=== PATIENT | female | born 1965 | race Caucasian/White ===

== ENCOUNTER 2021-08-21 18:20 | Inpatient (IN) | payer OTHER, SELFPAY ==
--- NOTE | ~2021-08-21 | CT_ITS ---
EXAMINATION: CT ANGIOGRAM HEAD CT ANGIOGRAM NECK CLINICAL INFORMATION: Infarct. COMPARISON: CT head from 08/21/2021. TECHNIQUE: Initial noncontrast information technology associate imaging of the head and neck was performed. Comparison is made with noncontrast head CT from earlier today. Test bolus sequences followed by intravenous administration 62 mL of Omnipaque 350. Helical imaging was performed in the axial plane from the aortic arch to the skull vertex. Delayed postcontrast imaging of the head was also performed. The data was processed at the radiologic technologist mammogram's workstation for generation of MIP sequences. Angled MIPs and volume rendered reformatted images were also generated at an offline 3D workstation. Stenoses are assessed in accordance with NASCET criteria unless otherwise indicated. This CT examination was performed using dose optimization techniques as appropriate, variously including the following: *Automated exposure control. *Adjustment of mA and/or kV according to patient size (this includes techniques or standardized protocols for targeted exams where dose is matched to indication/reason for exam; i.e. extremities or head). *Use of iterative reconstruction technique. DLP: 2395 mGy-cm FINDINGS: CT Head: There is a region of chronic encephalomalacia within the left cerebellar hemisphere. No evidence of acute intracranial hemorrhage. No demonstrated additional edematous territorial infarction. A few foci of hypoattenuation in the periventricular and deep white matter are consistent with mild microangiopathy. No additional loss of billings-white matter differentiation. The ventricles are normal in size and configuration. No evidence for obstructive hydrocephalus. No abnormal mass effect or midline shift. No extra-axial fluid collections. No pathologic intra-axial enhancement. No acute soft tissue or osseous abnormalities. Mild mucosal thickening of the paranasal sinuses. The mastoid air cells and middle ear cavities are clear. Mild degenerative arthropathy of the left greater than right temporomandibular joints. The patient is edentulous. CT Neck: The thyroid gland and remaining cervical soft tissues are within normal limits. Mild degenerative disc disease from C3-C7. No additional significant abnormalities of the cervical spine. CT Upper Chest: Extensive underlying centrilobular emphysema. The visualized lung apices and upper mediastinum are within normal limits. Neck CTA: Aortic Arch: Normal contour and caliber with moderate calcific atherosclerotic disease. Four vessel branching pattern with left vertebral artery arising directly from the arch between the left common carotid and left subclavian arteries. Great Vessel Origins: No significant stenosis of the branch origins. Right Common Carotid Artery: No focal stenosis or occlusion. Cervical Right Internal Carotid Artery: Calcific atherosclerotic disease of the carotid bulb and proximal internal carotid artery causing less than 50% stenosis. Left Common Carotid Artery: No focal stenosis or occlusion. Cervical Left Internal Carotid Artery: Calcific atherosclerotic disease of the carotid bulb and proximal internal carotid artery causing less than 50% stenosis. Cervical Right Vertebral Artery: Co-dominant. No focal stenosis or occlusion. Cervical Left Vertebral Artery: Co-dominant. No focal stenosis or occlusion. Brain CTA: Intracranial Internal Carotid Arteries: Calcific atherosclerotic disease of the intracranial internal carotid arteries without occlusion or flow-limiting stenosis. Right Anterior Cerebral Artery: Normal A1 segment. Normal opacification of the distal LEAH segments. Left Anterior Cerebral Artery: Normal A1 segment. Normal opacification of the distal LEAH segments. Anterior Communicating Artery: Normal. Right Middle Cerebral Artery: Normal M1 segment of the MCA without focal stenosis or occlusion. Normal arborization of the distal segments. Left Middle Cerebral Artery: Normal M1 segment of the MCA without focal stenosis or occlusion. Normal arborization of the distal segments. Right Vertebral Artery: Normal V4 segment. Normal opacification of the proximal segments of the posterior inferior cerebellar artery. Left Vertebral Artery: Normal V4 segment. Normal opacification of the proximal segments of the posterior inferior cerebellar artery. Basilar Artery: Normal without focal stenosis or occlusion. Normal appearance of the proximal superior cerebellar arteries. Right Posterior Cerebral Artery: Normal P1 segment. Normal opacification of the distal DIESEL PILE DRIVER OPERATOR segments. Left Posterior Cerebral Artery: Normal P1 segment. Normal opacification of the distal D[employer]EL PILE DRIVER OPERATOR segments. Normal opacification of the superior sagittal, straight, transverse, and sigmoid sinuses. CT/CT angio head neck IMPRESSION: 1. No evidence of acute intracranial hemorrhage or edematous territorial infarction. Chronic encephalomalacia of the left cerebellar hemisphere. Mild underlying microangiopathy. The additional small potential regions of hypoattenuation within the occipital lobes and cerebellum are too small to characterize by this exam. If clinically indicated, MRI could provide better evaluation for smaller acute ischemic insults. 2. CTA of the head and neck without proximal occlusion or flow-limiting stenosis. 3. Extensive underlying emphysema.
--- NOTE | ~2021-08-21 | XR_ITS ---
EXAMINATION: XR ABDOMEN KUB CLINICAL INDICATION: Pre-MRI evaluation. COMPARISON: None TECHNIQUE: AP view of the abdomen. FINDINGS: Over the mid and lower pelvis there are 4 radiopaque metallic foreign bodies which may be external to the patient. 2 appear to be metallic buttons and the other 2 are linear objects about 3 cm of length. Recommend repeat evaluation of the pelvis after removal of these objects. No other metallic foreign body or radiopaque foreign body present. Nonobstructive bowel pattern. Moderate volume of stool in the colon. There are vascular calcifications of the mid abdomen. Moderate degenerative spondylosis of the spine. Lung bases are normally aerated. XR/XR abdomen 1V IMPRESSION: 4 metallic foreign bodies over the mid lower pelvis. These may be external to the patient. Recommend repeat exam after removal.
--- NOTE | ~2021-08-21 | XR_ITS ---
EXAMINATION: XR chest 1V CLINICAL INFORMATION: Reason for Exam Pre MRI eval COMPARISON: None TECHNIQUE: One view of the chest XR/XR chest 1V FINDINGS/IMPRESSION: Prominence of the left adria with a relatively convex border, for which differential considerations would include a dilated urinary artery however lymphadenopathy cannot be excluded. Recommend contrast-enhanced chest CT if further characterization. No focal consolidation. No pneumothorax. No pleural effusion. Normal cardiac silhouette. No radiopaque device or foreign body.
--- NOTE | ~2021-08-21 | XR_ITS ---
EXAMINATION: XR ABDOMEN KUB CLINICAL INDICATION: Evaluation for MRI COMPARISON: None TECHNIQUE: AP view of the abdomen. FINDINGS: There is no radiopaque metallic foreign body seen. There is moderate stool in the colon without distention. There is no organomegaly. There is mild levoscoliosis of lumbar spine. XR/XR KUB IMPRESSION: Moderate constipation. No acute process seen.
--- NOTE | ~2021-08-21 | MR_ITS ---
EXAMINATION: MR BRAIN WITHOUT CONTRAST CLINICAL INFORMATION: Cerebrovascular accident. COMPARISON: CTA head and neck from 08/21/2021. TECHNIQUE: MRI of the brain was obtained using routine sequences without contrast. FINDINGS: No focal restricted diffusion is demonstrated to suggest acute or subacute cerebral ischemia. No evidence of acute or chronic hemorrhagic products on heme-sensitive imaging. Basal ganglia mineralization. Chronic encephalomalacia of the left cerebellar hemisphere. Scattered periventricular and deep white matter T2 FLAIR hyperintensities consistent with mild underlying microangiopathy. Proportional prominence of the ventricles and sulcal spaces without evidence of obstructive hydrocephalus. No abnormal mass effect. No midline shift. Expansion of the sella turcica with mild flattening of the pituitary gland. Normal positioning of the cerebellar tonsils. Normal arterial and venous vascular flow voids are present. Normal, homogeneous marrow signal. Mild mucosal thickening of the paranasal sinuses. No signal abnormalities within the mastoids. MR/MR head/brain wo con IMPRESSION: 1. No acute intracranial abnormalities. 2. Chronic and simple malacia of the left cerebellar hemisphere. Mild underlying microangiopathy.
--- NOTE | ~2021-08-21 | CT_ITS ---
EXAMINATION: CT HEAD WITHOUT CONTRAST CLINICAL INFORMATION: Altered mental status. COMPARISON: None. TECHNIQUE: Contiguous axial imaging was performed from the skull base to vertex without intravenous administration of contrast. This CT examination was performed using dose optimization techniques as appropriate, variously including the following: *Automated exposure control *Adjustment of mA and/or kV according to patient size (this includes techniques or standardized protocols for targeted exams where dose is matched to indication/reason for exam; i.e. extremities or head) *Use of iterative reconstruction technique DLP: 734 mGy-cm FINDINGS: There is decreased billings to white matter differentiation in the right occipital lobe (2:23). There are a few additional hypoattenuating foci in the cerebral hemispheres, for instance in the right side on image 13 of series 2 and left side on image 15 of series 2. No evidence of intracranial hemorrhage. The ventricles are normal in size and configuration. Prominent CSF space posterior to the left inferior cerebellum (2:13) likely an arachnoid cyst. No evidence for obstructive hydrocephalus. No abnormal mass effect or midline shift. No extra-axial fluid collections. No acute soft tissue or osseous abnormalities. The mastoid air cells and paranasal sinuses are clear. CT/CT head/brain wo con IMPRESSION: Question of decreased billings to a matter differentiation and hypoattenuation of the parenchyma in the right occipital lobe concerning for an infarct. Recommend correlation with an MR of the brain. There are also a few additional hypoattenuating foci in the cerebral hemispheres, possibly representing additional infarcts of uncertain age. This critical result was discussed with JOSE Figueroa at 08/21/2021 9:09 PM and it was ascertained that the content and urgency of the report was understood at the time of direct communication.
[2021-08-21 18:42] VITALS: BP 172/101; PULSE 104; RESP 20; TEMP 36.5; O2SAT 95; BMI 26.5
--- NOTE | 2021-08-21 18:57 | ECG_ITS ---
Test Reason : AMS Blood Pressure : / mmHG Vent. Rate : 088 BPM Atrial Rate : 088 BPM P-R Int : 144 ms QRS Dur : 086 ms QT Int : 400 ms P-R-T Axes : 077 038 114 degrees QTc Int : 484 ms Normal sinus rhythm Possible Left atrial enlargement Left ventricular hypertrophy with repolarization abnormality ( Sokolow-Alcazar , Delfino product , Romhilt-Cabrera ) Cannot rule out Septal infarct , age undetermined Abnormal ECG No previous ECGs available Referred By: Donna Ruiz Electronically Signed By:RAFFAELE KNOX MD
--- NOTE | 2021-08-21 18:57 | ED_ITS ---
HPI - General Adult General Chief complaint: Psychiatric Symptoms Stated complaint: sect 12 Source: patient and EMS Mode of arrival: EMS Limitations: altered mental status History of Present Illness HPI narrative: 56-year-old female presents via EMS under Section 12 for altered mental status. Onset (ago): unknown Severity: moderate Associated symptoms: confusion Related Data Home Medications Medication Instructions Recorded Confirmed insulin aspart U-100 100 unit/mL See Protocol SUBCUT TID 08/21/21 08/21/21 subcutaneous solution (Novolog U-100 Insulin aspart) insulin glargine 100 unit/mL 12 unit SUBCUT QAM 08/21/21 08/21/21 subcutaneous solution (Lantus U-100 Insulin) metformin 500 mg tablet 2 tab PO BID 08/21/21 08/21/21 Allergies Allergy/AdvReac Type Severity Reaction Status Date / Time No Known Allergies Allergy Verified 08/21/21 18:57 Review of Systems Verdana 4l Review of Systems: Yes Unobtainable due to mental status Verdana 4d PMFSH Past Medical History Attestation statement: The following information was validated with the patient. Source: old records reviewed Social History Social History Patient Tobacco Use Status: Former Tobacco user Smoked in Last 30 Days: No Use of substances other than those prescribed or required for medical reasons: Refusing to respond Advance Directives: No Advance Directives Information Provided: No Physical Exam Verdana 4l Vital Signs: Verdana 4d Verdana 4d Vital Signs: Verdana 4d Verdana 4Bd Last Vital Signs Verdana 4d Gold Blower New 4d Gold Blower New 4d Temp 98.7 F 08/21/21 23:09 Gold Blower New 4d Pulse 87 08/21/21 20:03 Gold Blower New 4d Resp 12 08/21/21 23:09 BP 180/63 H 08/21/21 23:09 Pulse Ox 97 08/21/21 20:03 BMI result Body Mass Index 26.5 Appearance: Alert. Oriented to self. Appears to be manic. Thin. Head: 3 semi circular lacerations to the right temporal lobe at the hairline. Normocephalic. No Valle signs noted. No raccoon eyes noted Eyes: PERRLA. EOMI. Conjunctiva and sclera normal. Eyelids normal. ENT: Pharynx normal. Uvula midline. Dry mucous membranes. No trismus noted. No drooling noted. No muffled voice noted. Neck: Normal inspection. Neck supple. No adenopathy. No meningeal signs. No neck mass noted. CVS: Tachycardic heart rate and rhythm. Heart sound normal. No murmurs noted. Pulses equal to all extremities. Respiratory: No respiratory distress. Painless inspiration. Expiratory wheezing noted throughout. Chest nontender. No accessory muscle usage noted or decreased air movement noted. Abdomen: Soft and nontender. Bowel sounds normal in all 4 quadrants. No distention noted. No organomegaly noted. No visible injury noted. Back: No CVA tenderness. Full range of motion noted. Skin: Skin warm and dry. Pale skin color. Normal skin turgor. Purpuric rash noted to arms legs and face. Extremities: No lower extremity edema. Extremities exhibit normal range of motion. Extremities nontender. Neuro: cranial nerves 2-12 intact, no focal neural deficits, strength 5/5 to all extremities, No motor deficit. No sensory deficit. NIH Stroke Scale Internal: Initial- Upon Arrival Level of Consciousness: Alert Level of Consciousness Questions: Answers neither question correctly Level of Consciousness Commands: Performs both tasks correctly Best Gaze: Normal Visual: No visual loss Facial Palsy: Normal Motor Arm (Right): No drift Motor Arm (Left): No drift Motor Leg (Right): No drift Motor Leg (Left): No drift Limb Ataxia: Absent Sensory: Normal Best Language: No aphasia Dysarthia: Normal Extinction and Inattention: No abnormality Score: 2 Course Course Course Narrative: 56-year-old female presents via EMS for altered mental status. No further information written on the Section 12 by police department. Patient appears to, is not answering questions. Stroke scale 2, however patient is not answering questions appropriately which seems to be manic behavior versus CVA. Patient is neurovascularly intact and is able to move extremities against resistance. Does follow simple commands. Patient is unkempt, has a purpuric rash to arms legs and face. Skin and mucous membranes are dry. Three semi circular well- approximated lacerations to the right temporal along hairline. No prior history for this patient at this facility. Will ask for med records from [facility] or other [facility] for further investigation. Will order CT scan of head, labs, urinalysis and toxicology. Patient needs multiple redirections, order for 1-1. Records from [facility], patient does history of bipolar disorder, tobacco dependence, insulin-dependent diabetes, hypertension, diabetic neuropathy. Date of service was 07/11/2021. At that time there was no indication of patient being manic, she was able to answer questions with complete coherent sentences, without focal deficit or abnormal gait. Multiple attempts to reach officer that filled out a section 12. 8:40 p.m. potassium 3.0 will replete with Salvatoreor-Yves. 9:12 p.m. discussion with Radiology, hypodensities on right occipital lobe. While this is suspicious for infarct, last known well time is unknown. Not a tPA candidate at this time. 9:50 p.m. discussion with hospitalist regarding plan of care to admit for altered mental status and infarct. Consultations Consultation #1: Susan Time: 21:50 Medical Decision Making Differential Diagnosis Differential Diagnosis: AMS, CVA, sepsis, trauma, manic, psychosis Medical Records Medical records reviewed: Yes I reviewed the patient's medical records. Lab Data Lab results reviewed: Yes I reviewed the patient's lab results. Result diagrams: 08/21/21 19:34 08/21/21 19:34 Labs: Lab Results 08/21/21 08/21/21 08/21/21 Range/Units 19:34 19:34 19:34 WBC 10.0 (4.8-10.8) X10*3/uL RBC 4.87 (4.20-5.50) X10*6/uL Hgb 14.6 (12.0-16.0) g/dl Hct 42.6 (37.0-47.0) % MCV 87.5 (80.0-98.0) fL MCH 30.0 (27.0-33.0) pg MCHC 34.3 (31.0-35.0) g/dl RDW 13.1 (11.0-16.0) % Plt Count 293 (160-400) X10*3/uL MPV 9.8 (9.4-12.3) fL Immature Gran % (Auto) 0.4 (0.0-0.4) % Neut % (Auto) 71.0 (45-73) % Lymph % (Auto) 22.1 (20-40) % [place] % (Auto) 5.4 (2-11) % Eos % (Auto) 0.8 (0-4) % Baso % (Auto) 0.3 (0-2) % Lymph # (Auto) 2.2 (1.2-4.9) X10*3/uL [place] # (Auto) 0.5 (0.1-1.2) X10*3/uL Eos # (Auto) 0.1 (0.0-0.4) X10*3/uL Baso # (Auto) 0.0 (0.0-0.2) X10*3/uL Abs Immat Gran (auto) 0.04 H (0.00-0.03) X10*3/uL Absolute Neuts (auto) 7.1 (2.0-8.3) x10*3/uL Absolute Nucleated RBC 0.000 (0.0-0.012) X10*3/uL Nucleated RBC % (auto) 0.0 (0.0-0.2) /100WBC PT (9.9-13.0) SEC INR (0.9-1.1) APTT (24.1-38.0) SEC Sodium 142 (135-145) mmol/L Potassium 3.0 L (3.3-5.1) mmol/L Chloride 101 (96-108) mmol/L Carbon Dioxide 30 H (22-29) mmol/L Anion Gap 14 (12-20) BUN 17 H (9-16) mg/dL Creatinine 0.76 (0.5-1.4) mg/dL Estim Creat Clear Calc 75.6 Estimated GFR > 60 POC Glucose (60-115) mg/dL Random Glucose 285 H (60-115) mg/dL Calcium 10.3 H (8.4-10.2) mg/dL Iron 96 (30-160) mcg/dL TIBC 341 (228-428) mcg/dL % Saturation 28 (15-50) % Unsat Iron Binding 245 ug/dL Total Bilirubin 0.5 (0.0-1.0) mg/dL AST 17 (5-31) U/L ALT 19 (0-31) U/L Alkaline Phosphatase 107 (39-117) U/L Ammonia (13-55) umol/L Troponin I High Sens 17.2 H (<3.5-17.0) ng/L Total Protein 6.9 (6.5-8.0) g/dL Albumin 4.3 (3.5-5.0) g/dL Urine Color Urine Appearance Urine pH (5.0-8.0) Ur Specific [place]itt (1.005-1.025) Urine Protein (NEG-TRACE) MG/DL Urine Glucose (UA) (NEG) MG/DL Urine Ketones (NEG) MG/DL Urine Blood (NEG) Urine Nitrite (NEG) Ur Leukocyte Esterase (NEG) Urine RBC (0) /HPF Urine WBC (0-4) /HPF Ur Squamous Epith Cells /LPF Urine Bacteria /LPF Hyaline Casts /LPF Granular Casts /LPF Urine Mucus /LPF Salicylates < 5.0 L (15-30) mg/dL Urine Opiates Screen (Not Detect) Urine Fentanyl Screen (Not Detect) Acetaminophen < 1 (<30) mcg/mL Ur Barbiturates Screen (Not Detect) Ur Phencyclidine Scrn (Not Detect) Ur Amphetamines Screen (Not Detect) U Benzodiazepines Scrn (Not Detect) Urine Cocaine Screen (Not Detect) U Marijuana (THC) Screen (Not Detect) Ethyl Alcohol mg/dL COVID-19 (TREY) (Negative) COVID-19 Clin Com 08/21/21 08/21/21 08/21/21 Range/Units 19:34 19:34 19:49 WBC (4.8-10.8) X10*3/uL RBC (4.20-5.50) X10*6/uL Hgb (12.0-16.0) g/dl Hct (37.0-47.0) % MCV (80.0-98.0) fL MCH (27.0-33.0) pg MCHC (31.0-35.0) g/dl RDW (11.0-16.0) % Plt Count (160-400) X10*3/uL MPV (9.4-12.3) fL Immature Gran % (Auto) (0.0-0.4) % Neut % (Auto) (45-73) % Lymph % (Auto) (20-40) % [place] % (Auto) (2-11) % Eos % (Auto) (0-4) % Baso % (Auto) (0-2) % Lymph # (Auto) (1.2-4.9) X10*3/uL [place] # (Auto) (0.1-1.2) X10*3/uL Eos # (Auto) (0.0-0.4) X10*3/uL Baso # (Auto) (0.0-0.2) X10*3/uL Abs Immat Gran (auto) (0.00-0.03) X10*3/uL Absolute Neuts (auto) (2.0-8.3) x10*3/uL Absolute Nucleated RBC (0.0-0.012) X10*3/uL Nucleated RBC % (auto) (0.0-0.2) /100WBC PT 12.2 (9.9-13.0) SEC INR 1.1 (0.9-1.1) APTT 30.5 (24.1-38.0) SEC Sodium (135-145) mmol/L Potassium (3.3-5.1) mmol/L Chloride (96-108) mmol/L Carbon Dioxide (22-29) mmol/L Anion Gap (12-20) BUN (9-16) mg/dL Creatinine (0.5-1.4) mg/dL Estim Creat Clear Calc Estimated GFR POC Glucose (60-115) mg/dL Random Glucose (60-115) mg/dL Calcium (8.4-10.2) mg/dL Iron (30-160) mcg/dL TIBC (228-428) mcg/dL % Saturation (15-50) % Unsat Iron Binding ug/dL Total Bilirubin (0.0-1.0) mg/dL AST (5-31) U/L ALT (0-31) U/L Alkaline Phosphatase (39-117) U/L Ammonia (13-55) umol/L Troponin I High Sens (<3.5-17.0) ng/L Total Protein (6.5-8.0) g/dL Albumin (3.5-5.0) g/dL Urine Color Urine Appearance Urine pH (5.0-8.0) Ur Specific Merritt (1.005-1.025) Urine Protein (NEG-TRACE) MG/DL Urine Glucose (UA) (NEG) MG/DL Urine Ketones (NEG) MG/DL Urine Blood (NEG) Urine Nitrite (NEG) Ur Leukocyte Esterase (NEG) Urine RBC (0) /HPF Urine WBC (0-4) /HPF Ur Squamous Epith Cells /LPF Urine Bacteria /LPF Hyaline Casts /LPF Granular Casts /LPF Urine Mucus /LPF Salicylates (15-30) mg/dL Urine Opiates Screen (Not Detect) Urine Fentanyl Screen (Not Detect) Acetaminophen (<30) mcg/mL Ur Barbiturates Screen (Not Detect) Ur Phencyclidine Scrn (Not Detect) Ur Amphetamines Screen (Not Detect) U Benzodiazepines Scrn (Not Detect) Urine Cocaine Screen (Not Detect) U Marijuana (THC) Screen (Not Detect) Ethyl Alcohol < 10 mg/dL COVID-19 (TREY) Negative (Negative) COVID-19 Clin Com See Note 08/21/21 08/21/21 08/21/21 Range/Units 19:49 20:51 23:02 WBC (4.8-10.8) X10*3/uL RBC (4.20-5.50) X10*6/uL Hgb (12.0-16.0) g/dl Hct (37.0-47.0) % MCV (80.0-98.0) fL MCH (27.0-33.0) pg MCHC (31.0-35.0) g/dl RDW (11.0-16.0) % Plt Count (160-400) X10*3/uL MPV (9.4-12.3) fL Immature Gran % (Auto) (0.0-0.4) % Neut % (Auto) (45-73) % Lymph % (Auto) (20-40) % [place] % (Auto) (2-11) % Eos % (Auto) (0-4) % Baso % (Auto) (0-2) % Lymph # (Auto) (1.2-4.9) X10*3/uL [place] # (Auto) (0.1-1.2) X10*3/uL Eos # (Auto) (0.0-0.4) X10*3/uL Baso # (Auto) (0.0-0.2) X10*3/uL Abs Immat Gran (auto) (0.00-0.03) X10*3/uL Absolute Neuts (auto) (2.0-8.3) x10*3/uL Absolute Nucleated RBC (0.0-0.012) X10*3/uL Nucleated RBC % (auto) (0.0-0.2) /100WBC PT (9.9-13.0) SEC INR (0.9-1.1) APTT (24.1-38.0) SEC Sodium (135-145) mmol/L Potassium (3.3-5.1) mmol/L Chloride (96-108) mmol/L Carbon Dioxide (22-29) mmol/L Anion Gap (12-20) BUN (9-16) mg/dL Creatinine (0.5-1.4) mg/dL Estim Creat Clear Calc Estimated GFR POC Glucose 228 H (60-115) mg/dL Random Glucose (60-115) mg/dL Calcium (8.4-10.2) mg/dL Iron (30-160) mcg/dL TIBC (228-428) mcg/dL % Saturation (15-50) % Unsat Iron Binding ug/dL Total Bilirubin (0.0-1.0) mg/dL AST (5-31) U/L ALT (0-31) U/L Alkaline Phosphatase (39-117) U/L Ammonia 43 (13-55) umol/L Troponin I High Sens (<3.5-17.0) ng/L Total Protein (6.5-8.0) g/dL Albumin (3.5-5.0) g/dL Urine Color YELLOW Urine Appearance CLEAR Urine pH 6.5 (5.0-8.0) Ur Specific Merritt 1.015 (1.005-1.025) Urine Protein 1+ H (NEG-TRACE) MG/DL Urine Glucose (UA) 500 H (NEG) MG/DL Urine Ketones 15 (NEG) MG/DL Urine Blood NEG (NEG) Urine Nitrite NEG (NEG) Ur Leukocyte Esterase NEG (NEG) Urine RBC 0-2 (0) /HPF Urine WBC 1-4 (0-4) /HPF Ur Squamous Epith Cells 3+ /LPF Urine Bacteria 2+ /LPF Hyaline Casts 0-2 /LPF Granular Casts 0-2 /LPF Urine Mucus 2+ /LPF Salicylates (15-30) mg/dL Urine Opiates Screen (Not Detect) Urine Fentanyl Screen (Not Detect) Acetaminophen (<30) mcg/mL Ur Barbiturates Screen (Not Detect) Ur Phencyclidine Scrn (Not Detect) Ur Amphetamines Screen (Not Detect) U Benzodiazepines Scrn (Not Detect) Urine Cocaine Screen (Not Detect) U Marijuana (THC) Screen (Not Detect) Ethyl Alcohol mg/dL COVID-19 (TREY) (Negative) COVID-19 Clin Com 08/21/21 Range/Units 23:02 WBC (4.8-10.8) X10*3/uL RBC (4.20-5.50) X10*6/uL Hgb (12.0-16.0) g/dl Hct (37.0-47.0) % MCV (80.0-98.0) fL MCH (27.0-33.0) pg MCHC (31.0-35.0) g/dl RDW (11.0-16.0) % Plt Count (160-400) X10*3/uL MPV (9.4-12.3) fL Immature Gran % (Auto) (0.0-0.4) % Neut % (Auto) (45-73) % Lymph % (Auto) (20-40) % [place] % (Auto) (2-11) % Eos % (Auto) (0-4) % Baso % (Auto) (0-2) % Lymph # (Auto) (1.2-4.9) X10*3/uL [place] # (Auto) (0.1-1.2) X10*3/uL Eos # (Auto) (0.0-0.4) X10*3/uL Baso # (Auto) (0.0-0.2) X10*3/uL Abs Immat Gran (auto) (0.00-0.03) X10*3/uL Absolute Neuts (auto) (2.0-8.3) x10*3/uL Absolute Nucleated RBC (0.0-0.012) X10*3/uL Nucleated RBC % (auto) (0.0-0.2) /100WBC PT (9.9-13.0) SEC INR (0.9-1.1) APTT (24.1-38.0) SEC Sodium (135-145) mmol/L Potassium (3.3-5.1) mmol/L Chloride (96-108) mmol/L Carbon Dioxide (22-29) mmol/L Anion Gap (12-20) BUN (9-16) mg/dL Creatinine (0.5-1.4) mg/dL Estim Creat Clear Calc Estimated GFR POC Glucose (60-115) mg/dL Random Glucose (60-115) mg/dL Calcium (8.4-10.2) mg/dL Iron (30-160) mcg/dL TIBC (228-428) mcg/dL % Saturation (15-50) % Unsat Iron Binding ug/dL Total Bilirubin (0.0-1.0) mg/dL AST (5-31) U/L ALT (0-31) U/L Alkaline Phosphatase (39-117) U/L Ammonia (13-55) umol/L Troponin I High Sens (<3.5-17.0) ng/L Total Protein (6.5-8.0) g/dL Albumin (3.5-5.0) g/dL Urine Color Urine Appearance Urine pH (5.0-8.0) Ur Specific [place] (1.005-1.025) Urine Protein (NEG-TRACE) MG/DL Urine Glucose (UA) (NEG) MG/DL Urine Ketones (NEG) MG/DL Urine Blood (NEG) Urine Nitrite (NEG) Ur Leukocyte Esterase (NEG) Urine RBC (0) /HPF Urine WBC (0-4) /HPF Ur Squamous Epith Cells /LPF Urine Bacteria /LPF Hyaline Casts /LPF Granular Casts /LPF Urine Mucus /LPF Salicylates (15-30) mg/dL Urine Opiates Screen Not Detected (Not Detect) Urine Fentanyl Screen Not Detected (Not Detect) Acetaminophen (<30) mcg/mL Ur Barbiturates Screen Not Detected (Not Detect) Ur Phencyclidine Scrn Not Detected (Not Detect) Ur Amphetamines Screen Not Detected (Not Detect) U Benzodiazepines Scrn Not Detected (Not Detect) Urine Cocaine Screen Not Detected (Not Detect) U Marijuana (THC) Screen Not Detected (Not Detect) Ethyl Alcohol mg/dL COVID-19 (TREY) (Negative) COVID-19 Clin Com Imaging Data CT head: Attestation: I personally reviewed and interpreted this imaging study as follows: Radiologist's impression: EXAMINATION: CT HEAD WITHOUT CONTRAST CLINICAL INFORMATION: Altered mental status.? COMPARISON: None. TECHNIQUE: Contiguous axial imaging was performed from the skull base to vertex without intravenous administration of contrast. This CT examination was performed using dose optimization techniques as appropriate, variously including the following: *Automated exposure control *Adjustment of mA and/or kV according to patient size (this includes techniques or standardized protocols for targeted exams where dose is matched to indication/reason for exam; i.e. extremities or head) *Use of iterative reconstruction technique DLP: 734 mGy-cm FINDINGS: There is decreased billings to white matter differentiation in the right occipital lobe (2:23). There are a few additional hypoattenuating foci in the cerebral hemispheres, for instance in the right side on image 13 of series 2 and left side on image 15 of series 2. No evidence of intracranial hemorrhage. The ventricles are normal in size and configuration. Prominent CSF space posterior to the left inferior cerebellum (2:13) likely an arachnoid cyst. No evidence for obstructive hydrocephalus. No abnormal mass effect or midline shift. No extra-axial fluid collections. No acute soft tissue or osseous abnormalities. The mastoid air cells and paranasal sinuses are clear. ? CT/CT head/brain wo con IMPRESSION: Question of decreased billings to a matter differentiation and hypoattenuation of the parenchyma in the right occipital lobe concerning for an infarct. Recommend correlation with an MR of the brain. ? There are also a few additional hypoattenuating foci in the cerebral hemispheres, possibly representing additional infarcts of uncertain age. ? This critical result was discussed with JOSE Figueroa at 08/21/2021 9:09 PM and it was ascertained that the content and urgency of the report was understood at the time of direct communication. CTA head and neck: Attestation: I personally reviewed and interpreted this imaging study as follows: Radiologist's impression: FINDINGS: CT Head: There is a region of chronic encephalomalacia within the left cerebellar hemisphere. No evidence of acute intracranial hemorrhage. No demonstrated additional edematous territorial infarction. A few foci of hypoattenuation in the periventricular and deep white matter are consistent with mild microangiopathy. No additional loss of billings-white matter differentiation. The ventricles are normal in size and configuration. No evidence for obstructive hydrocephalus. No abnormal mass effect or midline shift. No extra-axial fluid collections. No pathologic intra-axial enhancement. No acute soft tissue or osseous abnormalities. Mild mucosal thickening of the paranasal sinuses. The mastoid air cells and middle ear cavities are clear. Mild degenerative arthropathy of the left greater than right temporomandibular joints. The patient is edentulous. CT Neck: The thyroid gland and remaining cervical soft tissues are within normal limits. Mild degenerative disc disease from C3-C7. No additional significant abnormalities of the cervical spine. CT Upper Chest: Extensive underlying centrilobular emphysema. The visualized lung apices and upper mediastinum are within normal limits. Neck CTA: Aortic Arch: Normal contour and caliber with moderate calcific atherosclerotic disease. Four vessel branching pattern with left vertebral artery arising directly from the arch between the left common carotid and left subclavian arteries. Great Vessel Origins: No significant stenosis of the branch origins. Right Common Carotid Artery: No focal stenosis or occlusion. Cervical Right Internal Carotid Artery: Calcific atherosclerotic disease of the carotid bulb and proximal internal carotid artery causing less than 50% stenosis. Left Common Carotid Artery: No focal stenosis or occlusion. Cervical Left Internal Carotid Artery: Calcific atherosclerotic disease of the carotid bulb and proximal internal carotid artery causing less than 50% stenosis. Cervical Right Vertebral Artery: Co-dominant. No focal stenosis or occlusion. Cervical Left Vertebral Artery: Co-dominant. No focal stenosis or occlusion. Brain CTA: Intracranial Internal Carotid Arteries: Calcific atherosclerotic disease of the intracranial internal carotid arteries without occlusion or flow-limiting stenosis. Right Anterior Cerebral Artery: Normal A1 segment. Normal opacification of the distal LEAH segments. Left Anterior Cerebral Artery: Normal A1 segment. Normal opacification of the distal LEAH segments. Anterior Communicating Artery: Normal. Right Middle Cerebral Artery: Normal M1 segment of the MCA without focal stenosis or occlusion. Normal arborization of the distal segments. Left Middle Cerebral Artery: Normal M1 segment of the MCA without focal stenosis or occlusion. Normal arborization of the distal segments. Right Vertebral Artery: Normal V4 segment. Normal opacification of the proximal segments of the posterior inferior cerebellar artery. Left Vertebral Artery: Normal V4 segment. Normal opacification of the proximal segments of the posterior inferior cerebellar artery. Basilar Artery: Normal without focal stenosis or occlusion. Normal appearance of the proximal superior cerebellar arteries. Right Posterior Cerebral Artery: Normal P1 segment. Normal opacification of the distal [employer] SOFTWARE [employer]ER segments. Left Posterior Cerebral Artery: Normal P1 segment. Normal opacification of the distal S[employer] SOFTWARE ENGINEER segments. Normal opacification of the superior sagittal, straight, transverse, and sigmoid sinuses. CT/CT angio head neck IMPRESSION: 1. No evidence of acute intracranial hemorrhage or edematous territorial infarction. Chronic encephalomalacia of the left cerebellar hemisphere. Mild underlying microangiopathy. ? The additional small potential regions of hypoattenuation within the occipital lobes and cerebellum are too small to characterize by this exam. If clinically indicated, MRI could provide better evaluation for smaller acute ischemic insults. ? 2. CTA of the head and neck without proximal occlusion or flow-limiting stenosis. ? 3. Extensive underlying emphysema. ECG Data Attestation: I personally reviewed and interpreted this ECG as follows: Prior ECG tracings: not available for review Interpretation: Vent. rate 88 BPM LA interval 144 ms QRS duration 86 ms QT/QTc 400/484 ms P-R-T axes 77 38 114 Normal sinus rhythm Possible Left atrial enlargement Left ventricular hypertrophy with repolarization abnormality ( Sokolow-Alcazar , Sanders product , Romhilt-Cabrera ) Cannot rule out Septal infarct , age undetermined Abnormal ECG No previous ECGs available 21-AUG-2021 19:21:23 Critical Care Time Critical Care Time Critical Care Time: Yes Total Critical Care Time: 65 Attestation: I have personally provided critical care time exclusive of time spent on separately billable procedures. Time includes review of laboratory data, radiology results, discussion with consultants, and monitoring for potential decompensation. Interventions were performed as documented. Discharge Plan Discharge Patient Disposition: Admitted As Inpatient Prescriptions: No Action metformin 500 mg tablet 2 tab PO BID 0RF Lantus U-100 Insulin 100 unit/mL solution 12 unit subcut QAM 0RF insulin aspart U-100 [Novolog U-100 Insulin aspart] 100 unit/mL solution See Protocol unit subcut TID 0RF Protocol: Insulin Correction Scale Less than or equal to 110 ---- Give (units): 0 111 to 150 Give (units): 0 151 to 200 Give (units): 2 201 to 250 Give (units): 4 251 to 300 Give (units): 6 301 to 350 Give (units): 8 Greater than 350 Give (units): 10 Call MD if Blood Glucose > : 350
--- NOTE | 2021-08-21 19:36 | PC.NURSE ---
pt changed over. Iv placed and labs collected. EkG completed and will medicated per Sep.
[2021-08-21 19:40] LABS: MANUAL DIFF FLAG NO
[2021-08-21 19:41] LABS: Basophils Percent Auto 0.3 % (0-2); Eosinophils Absolute Auto 0.1 X10*3/uL (0.0-0.4); Eosinophils Percent Auto 0.8 % (0-4); Hematocrit 42.6 % (37.0-47.0); Hemoglobin 14.6 g/dl (12.0-16.0); Imm Gran Abs Auto 0.04 X10*3/uL (0.00-0.03); Imm Gran Pct Auto 0.4 % (0.0-0.4); Lymphocytes Absolute Auto 2.2 X10*3/uL (1.2-4.9); Lymphocytes Percent Auto 22.1 % (20-40); Mean Corpuscular HGB Conc 34.3 g/dl (31.0-35.0); Mean Corpuscular Volume 87.5 fL (80.0-98.0); Mean Platelet Volume 9.8 fL (9.4-12.3); Monocytes Absolute Auto 0.5 X10*3/uL (0.1-1.2); Monocytes Percent Auto 5.4 % (2-11); Neutrophils Absolute Auto 7.1 x10*3/uL (2.0-8.3); Platelet Count 293 X10*3/uL (160-400); Red Blood Count 4.87 X10*6/uL (4.20-5.50); Red Cell Distribution Width 13.1 % (11.0-16.0)
[2021-08-21] MEDS: LORazepam 1 MG TABLET PO ×2 (19:51→23:03)
[2021-08-21 19:53] LABS: Ethanol < 10 mg/dL
[2021-08-21] MEDS: Diphth,Pertus(ACell),Tet Adult 0.5 ML SYRINGE IM (19:55)
[2021-08-21 19:57] LABS: Acetaminophen LAB < 1 mcg/mL (<30); Alanine Aminotransferase 19 U/L (0-31); Albumin Level 4.3 g/dL (3.5-5.0); Alkaline Phosphatase 107 U/L (39-117); Anion Gap 14 (12-20); Aspartate Amino Transferase 17 U/L (5-31); Bilirubin Total 0.5 mg/dL (0.0-1.0); Blood Urea Nitrogen 17 mg/dL (9-16); Calcium 10.3 mg/dL (8.4-10.2); Carbon Dioxide 30 mmol/L (22-29); Chloride 101 mmol/L (96-108); Creatinine Clr Calc Pharmacy 75.6; Estimated Glomerular Filt Rate > 60; Glucose Random 285 mg/dL (60-115); Sodium 142 mmol/L (135-145); Total Protein 6.9 g/dL (6.5-8.0)
[2021-08-21] MEDS: 0.9 % Sodium Chloride 1,000 ML 999 ML IV (19:59)
[2021-08-21 20:00] LABS: Salicylate < 5.0 mg/dL (15-30)
[2021-08-21 20:02] LABS: Troponin-I High Sensitivity 17.2 ng/L (<3.5-17.0)
[2021-08-21 20:03] VITALS: BP 178/99; PULSE 87; RESP 16; TEMP 37.2; O2SAT 97
[2021-08-21 20:04] LABS: COVID-19 Test Negative (Negative); IDNOW Serial# 55D5AD1C
[2021-08-21 20:05] LABS: Ammonia 43 umol/L (13-55)
[2021-08-21 20:16] LABS: INTERNATIONAL NORM RATIO 1.1 (0.9-1.1); Prothrombin Time 12.2 SEC (9.9-13.0)
[2021-08-21 20:19] LABS: Partial Thromboplastin Time 30.5 SEC (24.1-38.0)
[2021-08-21 20:55] LABS: Glucose, Whole Blood 228 mg/dL (60-115)
[2021-08-21 20:59] LABS: Iron 96 mcg/dL (30-160); Percent Iron Saturation 28 % (15-50); Total Iron Binding Capacity 341 mcg/dL (228-428); Unsaturated Iron Binding 245 ug/dL
--- NOTE | 2021-08-21 21:20 | PC.NURSE ---
pt able to speak in full sentence, no right or left side weakness.
[2021-08-21] MEDS: Potassium Chloride Packet 20 MEQ PACKET 40 MEQ PO (21:26)
--- NOTE | 2021-08-21 21:28 | PHA.MEDREC ---
Pharmacy Consult ? Medication Reconciliation Pharmacy has completed the medication reconciliation.Med rec taken from claim history, patient does not remember what she takes when interviewed
--- NOTE | 2021-08-21 21:31 | PC.NURSE ---
pt able to swallow well no sign of aspiration.
--- NOTE | 2021-08-21 22:07 | P.HPHOSP_ITS ---
History of Present Illness Date of Service: 08/21/21 Chief Complaint: AMS 56-year-old female with past medical history of diabetes who was brought into the hospital from home on section 12, her arrival to the ED is mysterious otis nobody has any information about how or who called EMS. I saw patient at bedside, she is somnolent but arousable, mumbles when answering questions, but sometimes has few coherent words. When asked her who called EMS she said she is alone and she needed help, likely that she might have called EMS/police to help bring her to the hospital. Unable to get much history from patient. She was noted to have mobile speech in the ED. On arrival to the ED patient hemodynamically stable with an elevated blood pressure 178/99 Labs were unremarkable, UA negative, urine drug screen negative, Head CT showed question of decreased billings to white matter differentiation and hypoattenuation of the parenchyma in the right occipital lobe concerning for an infarct. Head and neck CT angiogram shows no evidence of acute intracranial hemorrhage or add metastatic Nette infarction. Chronic encephalomalacia of the left cerebral hemisphere. Mild underlying microangiopathy. PATIENT WILL BE ADMITTED FOR FURTHER MANAGEMENT Unable to obtain her past medical surgical or family history Review of Systems Verdana 4l Review of Systems: Yes Unobtainable due to mental Verdana 4d condition and Unobtainable due to mental status PMFSH Medical History (Updated 08/22/21 @ 05:46 by Jorge Davis MD) Diabetes Social History Patient Tobacco Use Status: Former Tobacco user Smoked in Last 30 Days: No Use of substances other than those prescribed or required for medical reasons: Refusing to respond Advance Directives: No Advance Directives Information Provided: No Meds Allergies Allergy/AdvReac Type Severity Reaction Status Date / Time No Known Allergies Allergy Verified 08/21/21 18:57 Home Medications Medication Instructions Recorded Confirmed Last Taken Type insulin aspart See Protocol 08/21/21 08/21/21 Unknown History U-100 100 unit/mL SUBCUT TID subcutaneous solution (Novolog U-100 Insulin aspart) insulin glargine 12 unit SUBCUT 08/21/21 08/21/21 Unknown History 100 unit/mL QAM subcutaneous solution (Lantus U-100 Insulin) metformin 500 mg 2 tab PO BID 08/21/21 08/21/21 Unknown History tablet Physical Exam Verdana 4l Vital Signs and Narrative: Verdana 4d Verdana 4d Vital Signs: Verdana 4d Verdana 4Bd Last Vital Signs Verdana 4d 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 Temp 98.9 F 08/21/21 20:03 [employer] Van Salesperson New 4d Pulse 87 08/21/21 20:03 [employer] Van Salesperson New 4d Resp 16 08/21/21 20:03 BP 178/99 H 08/21/21 20:03 Pulse Ox 97 08/21/21 20:03 BMI result Body Mass Index 26.5 Const: Other: Somnolent but easily arousable General: cooperative Eyes: General: appearance normal, both eyes and all related structures Resp: Effort & Inspection: normal respiratory effort Auscultation: clear to auscultation bilaterally Cardio: Rate: regular rate Rhythm: regular rhythm GI: Palpation (GI): Soft to palpation Auscultation: normal bowel sounds Skin: General skin exam: no rashes or lesions noted Neuro: Other: She does follow commands somewhat, upper extremity strength is 5/5, when asked about lower extremity she refused to do the exam, does not follow the rest of neurological exam Extrem: General: Yes normal to inspection and Yes no pedal edema Results Labs CBC and Chem 7: 08/21/21 19:34 08/21/21 19:34 Labs: Laboratory Results - last 24 hr 08/21/21 08/21/21 08/21/21 19:34 19:34 19:34 MCV 87.5 MCH 30.0 MCHC 34.3 RDW 13.1 Plt Count 293 MPV 9.8 Immature Gran % (Auto) 0.4 Neut % (Auto) 71.0 Lymph % (Auto) 22.1 Garvin % (Auto) 5.4 Eos % (Auto) 0.8 Baso % (Auto) 0.3 Lymph # (Auto) 2.2 Garvin # (Auto) 0.5 Eos # (Auto) 0.1 Baso # (Auto) 0.0 Abs Immat Gran (auto) 0.04 H Absolute Neuts (auto) 7.1 Absolute Nucleated RBC 0.000 Nucleated RBC % (auto) 0.0 PT INR APTT Anion Gap 14 Estim Creat Clear Calc 75.6 Estimated GFR > 60 POC Glucose Random Glucose 285 H Calcium 10.3 H Iron 96 TIBC 341 % Saturation 28 Unsat Iron Binding 245 Total Bilirubin 0.5 AST 17 ALT 19 Alkaline Phosphatase 107 Ammonia Troponin I High Sens 17.2 H Total Protein 6.9 Albumin 4.3 Salicylates < 5.0 L Acetaminophen < 1 Ethyl Alcohol COVID-19 ([facility]) COVID-19 Clin Com 08/21/21 08/21/21 08/21/21 19:34 19:34 19:49 MCV MCH MCHC RDW Plt Count MPV Immature Gran % (Auto) Neut % (Auto) Lymph % (Auto) Garvin % (Auto) Eos % (Auto) Baso % (Auto) Lymph # (Auto) Garvin # (Auto) Eos # (Auto) Baso # (Auto) Abs Immat Gran (auto) Absolute Neuts (auto) Absolute Nucleated RBC Nucleated RBC % (auto) PT 12.2 INR 1.1 APTT 30.5 Anion Gap Estim Creat Clear Calc Estimated GFR POC Glucose Random Glucose Calcium Iron TIBC % Saturation Unsat Iron Binding Total Bilirubin AST ALT Alkaline Phosphatase Ammonia Troponin I High Sens Total Protein Albumin Salicylates Acetaminophen Ethyl Alcohol < 10 COVID-19 ([facility]) Negative COVID-19 Clin Com See Note 08/21/21 08/21/21 19:49 20:51 MCV MCH MCHC RDW Plt Count MPV Immature Gran % (Auto) Neut % (Auto) Lymph % (Auto) Garvin % (Auto) Eos % (Auto) Baso % (Auto) Lymph # (Auto) Garvin # (Auto) Eos # (Auto) Baso # (Auto) Abs Immat Gran (auto) Absolute Neuts (auto) Absolute Nucleated RBC Nucleated RBC % (auto) PT INR APTT Anion Gap Estim Creat Clear Calc Estimated GFR POC Glucose 228 H Random Glucose Calcium Iron TIBC % Saturation Unsat Iron Binding Total Bilirubin AST ALT Alkaline Phosphatase Ammonia 43 Troponin I High Sens Total Protein Albumin Salicylates Acetaminophen Ethyl Alcohol COVID-19 ([facility]) COVID-19 Clin Com Imaging Radiologist's Impressions: Impressions Head CT 08/21/21 20:50 IMPRESSION: Question of decreased billings to a matter differentiation and hypoattenuation of the parenchyma in the right occipital lobe concerning for an infarct. Recommend correlation with an MR of the brain. There are also a few additional hypoattenuating foci in the cerebral hemispheres, possibly representing additional infarcts of uncertain age. This critical result was discussed with JOSE Figueroa at 08/21/2021 9:09 PM and it was ascertained that the content and urgency of the report was understood at the time of direct communication. Assessment and Plan (1) Altered mental status: Status: Acute (2) Occipital cerebral infarction: Status: Acute Plan 56-year-old female who comes in from home with unclear history around her arrival on section 12 presents to the hospital found to have stroke on head CT # CVA - unclear chronicity - head CT as above - CTA head and neck unremarkable - will obtain neurological consult - high-dose atorvastatin, aspirin - MRI # diabetes - continue home insulin - will add low-dose sliding scale insulin - diabetic diet # permissive hypertension - elevated blood pressure - does not appear to have any home antihypertensives - will off for now until evaluated by Neurology DVT prophylaxis: Lovenox Quality Stroke Does the patient have a stroke diagnosis?: No VTE Prior VTE?: No VTE Risk Level:: Medical - moderate - high VTE Device Contraindication: Treatment Not Indicated VTE Drug Contraindication: N/A - Med Ordered
[2021-08-21 23:08] LABS: Appearance Urine CLEAR; Color Urine YELLOW; Glucose Urine UA 500 MG/DL (NEG); Leukocyte Esterase Urine NEG (NEG); Nitrite Urine NEG (NEG); PH 6.5 (5.0-8.0); Specific Gravity - Urine 1.015 (1.005-1.025); UACC Culture Trigger NO; Urine Blood NEG (NEG); Urine Ketones 15 MG/DL (NEG); Urine Protein 1+ MG/DL (NEG-TRACE)
[2021-08-21 23:09] VITALS: BP 180/63; RESP 12; TEMP 37.1
[2021-08-21 23:16] LABS: Bacteria Urine 2+ /LPF; Hyaline Casts Urine 0-2 /LPF; Mucus Urine 2+ /LPF; RBC Urine 0-2 /HPF (0); Squamous Epithelial Cell Urine 3+ /LPF
[2021-08-21 23:17] LABS: Granular Casts Urine 0-2 /LPF
[2021-08-21 23:27] LABS: Amphetamine Screen Urine Not Detected (Not Detect); Barbiturates, Urine Not Detected (Not Detect); Benzodiazepines Screen Urine Not Detected (Not Detect); Cannabinoid Screen Urine Not Detected (Not Detect); Cocaine Screen Urine Not Detected (Not Detect); Fentanyl, urine Not Detected (Not Detect); Opiate Screen Urine Not Detected (Not Detect); Phencyclidine Screen Urine Not Detected (Not Detect)
[2021-08-21 23:33] LABS: Troponin-I High Sensitivity 16.9 ng/L (<3.5-17.0)
--- NOTE | 2021-08-22 01:24 | PC.NURSE ---
pt neuro are intact no drift or defecate.
--- NOTE | 2021-08-22 03:11 | PC.NURSE ---
pt is sleeping and able to respond to question appropriately. nuero intact, no impairment.
--- NOTE | 2021-08-22 04:56 | PC.NURSE ---
pt sleeping, no sign of distress at this time.
[2021-08-22 05:58] LABS: MANUAL DIFF FLAG NO
[2021-08-22 05:59] LABS: Basophils Percent Auto 0.4 % (0-2); Eosinophils Absolute Auto 0.1 X10*3/uL (0.0-0.4); Eosinophils Percent Auto 1.5 % (0-4); Hematocrit 38.4 % (37.0-47.0); Hemoglobin 13.1 g/dl (12.0-16.0); Imm Gran Abs Auto 0.02 X10*3/uL (0.00-0.03); Imm Gran Pct Auto 0.2 % (0.0-0.4); Lymphocytes Absolute Auto 2.8 X10*3/uL (1.2-4.9); Lymphocytes Percent Auto 29.5 % (20-40); Mean Corpuscular HGB Conc 34.1 g/dl (31.0-35.0); Mean Corpuscular Hemoglobin 30.2 pg (27.0-33.0); Mean Corpuscular Volume 88.5 fL (80.0-98.0); Monocytes Absolute Auto 0.5 X10*3/uL (0.1-1.2); Monocytes Percent Auto 5.3 % (2-11); Neutrophils Percent Auto 63.1 % (45-73); Platelet Count 258 X10*3/uL (160-400); Red Blood Count 4.34 X10*6/uL (4.20-5.50); Red Cell Distribution Width 13.2 % (11.0-16.0); White Blood Count 9.6 X10*3/uL (4.8-10.8)
[2021-08-22 06:23] VITALS: BP 162/73; PULSE 71; RESP 12; O2SAT 98
[2021-08-22 06:25] LABS: Anion Gap 10 (12-20); Blood Urea Nitrogen 13 mg/dL (9-16); Calcium 9.1 mg/dL (8.4-10.2); Carbon Dioxide 29 mmol/L (22-29); Chloride 105 mmol/L (96-108); Cholesterol 171 mg/dL; Creatinine Clr Calc Pharmacy 97.4; Estimated Glomerular Filt Rate > 60; Glucose Random 166 mg/dL (60-115); HDL Cholesterol 32 mg/dL; LDL Cholesterol Calculated 114 mg/dl; Potassium 3.1 mmol/L (3.3-5.1); Sodium 141 mmol/L (135-145); Triglycerides 125 mg/dL
[2021-08-22 10:50] LABS: Vitamin B12 1122 pg/mL (200-900)
--- NOTE | 2021-08-22 12:34 | MHC.CARE ---
Plan for psych to meet with Pt for medication recommendations.
--- NOTE | 2021-08-22 13:03 | P.PNIM_ITS ---
Subjective Subjective Date of Service: 08/22/21 Interval History: the patient was seen and evaluated this morning Sitting in her bed, very talkative with no in call, feels light of id S Refuses cares of x-rays or medications Aware of being in the hospital denies any pain Systemic review: No fever, chills or weakness No chest pain, palpitation No shortness of breath or coughing No abdominal pain, nausea or vomiting No urinary symptoms No any rash or wounds Physical Exam Verdana 4l Vital Signs: Verdana 4d Verdana 4d Vital Signs: Verdana 4d Verdana 4Bd Last Vital Signs Verdana 4d Calender Roll Press Operator New 4d Calender Roll Press Operator New 4d Temp 98.7 F 08/21/21 23:09 Calender Roll Press Operator New 4d Pulse 71 08/22/21 06:23 Calender Roll Press Operator New 4d Resp 12 08/22/21 06:23 BP 162/73 H 08/22/21 06:23 Pulse Ox 98 08/22/21 06:23 BMI result Body Mass Index 26.5 Const: Other: Constitutional : Alert, oriented to self and place seems slightly anxious and very talkative Neck : Normal inspection, Supple Cardiovascular : RRR, S1 S2, no lower extremity edema Respiratory : Good bilateral air entry, no crackles, wheezes or rhonchi Gastrointestinal: soft, lax, Normal bowel sounds, Non tender Skin : Warm, Dry Neurological : Alert & oriented to self and place, refusing to answers questions or to assess with physical exam, No focal deficit appreciated Objective Data Active Medications Acetaminophen (Acetaminophen 325 Mg Tablet) 650 mg PO Q6H PRN PRN Reason: Pain, Mild (Pain Scale 1-3) Aspirin (Aspirin Enteric Coated 81 Mg Tablet.) 81 mg PO DAILY [facility] Last Admin: 08/22/21 09:21 Dose: Not Given Documented by: BLANCHE Non-Admin Reason: Patient Refused Atorvastatin Calcium (Atorvastatin Calcium 80 Mg Tablet) 80 mg PO BEDTIME [facility] Dextrose (Dextrose 50 % 25 Gm/50 Ml Syringe) 25 gm IVPUSH Q15M PRN; Protocol PRN Reason: per Hypoglycemia Standing Ord. Docusate Sodium (Docusate Sodium 100 Mg Capsule) 100 mg PO DAILY PRN PRN Reason: Constipation Glucose (Glucose Gel 15 Gm Gel..Gram.) 15 gm PO Q15M PRN; Protocol PRN Reason: per Hypoglycemia Standing Ord. Insulin Glargine (Insulin Glargine,Hum.Rec.Anlog 100 Unit/Ml 10 Ml Vial) 12 unit SUBCUT DAILY [facility] Last Admin: 08/22/21 09:21 Dose: Not Given Documented by: BLANCHE Non-Admin Reason: Patient Refused Insulin Human Lispro (Insulin Lispro 100 Unit/Ml 3 Ml Vial) 0 unit SUBCUT QIDACHS [facility]; Protocol Last Admin: 08/22/21 07:32 Dose: Not Given Documented by: BLANCHE Non-Admin Reason: No Insulin Coverage Ondansetron HCl (Ondansetron Hcl 4 Mg/2 Ml Vial) 4 mg IVPUSH Q8H PRN PRN Reason: Nausea and Vomiting Labs CBC & Chem 7: 08/22/21 05:44 08/22/21 05:44 Labs: Laboratory Results - last 24 hr 08/21/21 08/21/21 08/21/21 19:34 19:34 19:34 MCV 87.5 MCH 30.0 MCHC 34.3 RDW 13.1 Plt Count 293 MPV 9.8 Immature Gran % (Auto) 0.4 Neut % (Auto) 71.0 Lymph % (Auto) 22.1 [place] % (Auto) 5.4 Eos % (Auto) 0.8 Baso % (Auto) 0.3 Lymph # (Auto) 2.2 [place] # (Auto) 0.5 Eos # (Auto) 0.1 Baso # (Auto) 0.0 Abs Immat Gran (auto) 0.04 H Absolute Neuts (auto) 7.1 Absolute Nucleated RBC 0.000 Nucleated RBC % (auto) 0.0 PT INR APTT Anion Gap 14 Estim Creat Clear Calc 75.6 Estimated GFR > 60 POC Glucose Random Glucose 285 H Calcium 10.3 H Iron 96 TIBC 341 % Saturation 28 Unsat Iron Binding 245 Total Bilirubin 0.5 AST 17 ALT 19 Alkaline Phosphatase 107 Ammonia Troponin I High Sens 17.2 H Total Protein 6.9 Albumin 4.3 Triglycerides Cholesterol LDL Cholesterol, Calc HDL Cholesterol Vitamin B12 Folate Urine Color Urine Appearance Urine pH Ur Specific [place] Urine Protein Urine Glucose (UA) Urine Ketones Urine Blood Urine Nitrite Ur Leukocyte Esterase Urine RBC Urine WBC Ur Squamous Epith Cells Urine Bacteria Hyaline Casts Granular Casts Urine Mucus Salicylates < 5.0 L Urine Opiates Screen Urine Fentanyl Screen Acetaminophen < 1 Ur Barbiturates Screen Ur Phencyclidine Scrn Ur Amphetamines Screen U Benzodiazepines Scrn Urine Cocaine Screen U Marijuana (THC) Screen Ethyl Alcohol COVID-19 ([facility]) COVID-19 Clin Com 08/21/21 08/21/21 08/21/21 19:34 19:34 19:49 MCV MCH MCHC RDW Plt Count MPV Immature Gran % (Auto) Neut % (Auto) Lymph % (Auto) [place] % (Auto) Eos % (Auto) Baso % (Auto) Lymph # (Auto) [place] # (Auto) Eos # (Auto) Baso # (Auto) Abs Immat Gran (auto) Absolute Neuts (auto) Absolute Nucleated RBC Nucleated RBC % (auto) PT 12.2 INR 1.1 APTT 30.5 Anion Gap Estim Creat Clear Calc Estimated GFR POC Glucose Random Glucose Calcium Iron TIBC % Saturation Unsat Iron Binding Total Bilirubin AST ALT Alkaline Phosphatase Ammonia Troponin I High Sens Total Protein Albumin Triglycerides Cholesterol LDL Cholesterol, Calc HDL Cholesterol Vitamin B12 Folate Urine Color Urine Appearance Urine pH Ur Specific [place] Urine Protein Urine Glucose (UA) Urine Ketones Urine Blood Urine Nitrite Ur Leukocyte Esterase Urine RBC Urine WBC Ur Squamous Epith Cells Urine Bacteria Hyaline Casts Granular Casts Urine Mucus Salicylates Urine Opiates Screen Urine Fentanyl Screen Acetaminophen Ur Barbiturates Screen Ur Phencyclidine Scrn Ur Amphetamines Screen U Benzodiazepines Scrn Urine Cocaine Screen U Marijuana (THC) Screen Ethyl Alcohol < 10 COVID-19 ([facility]) Negative COVID-19 Clin Com See Note 08/21/21 08/21/21 08/21/21 19:49 19:49 20:51 MCV MCH MCHC RDW Plt Count MPV Immature Gran % (Auto) Neut % (Auto) Lymph % (Auto) [place] % (Auto) Eos % (Auto) Baso % (Auto) Lymph # (Auto) [place] # (Auto) Eos # (Auto) Baso # (Auto) Abs Immat Gran (auto) Absolute Neuts (auto) Absolute Nucleated RBC Nucleated RBC % (auto) PT INR APTT Anion Gap Estim Creat Clear Calc Estimated GFR POC Glucose 228 H Random Glucose Calcium Iron TIBC % Saturation Unsat Iron Binding Total Bilirubin AST ALT Alkaline Phosphatase Ammonia 43 Troponin I High Sens Total Protein Albumin Triglycerides Cholesterol LDL Cholesterol, Calc HDL Cholesterol Vitamin B12 1122 H Folate 12.0 Urine Color Urine Appearance Urine pH Ur Specific [place] Urine Protein Urine Glucose (UA) Urine Ketones Urine Blood Urine Nitrite Ur Leukocyte Esterase Urine RBC Urine WBC Ur Squamous Epith Cells Urine Bacteria Hyaline Casts Granular Casts Urine Mucus Salicylates Urine Opiates Screen Urine Fentanyl Screen Acetaminophen Ur Barbiturates Screen Ur Phencyclidine Scrn Ur Amphetamines Screen U Benzodiazepines Scrn Urine Cocaine Screen U Marijuana (THC) Screen Ethyl Alcohol COVID-19 ([facility]) COVID-19 Clin Com 08/21/21 08/21/21 08/21/21 23:02 23:02 23:02 MCV MCH MCHC RDW Plt Count MPV Immature Gran % (Auto) Neut % (Auto) Lymph % (Auto) [place] % (Auto) Eos % (Auto) Baso % (Auto) Lymph # (Auto) [place] # (Auto) Eos # (Auto) Baso # (Auto) Abs Immat Gran (auto) Absolute Neuts (auto) Absolute Nucleated RBC Nucleated RBC % (auto) PT INR APTT Anion Gap Estim Creat Clear Calc Estimated GFR POC Glucose Random Glucose Calcium Iron TIBC % Saturation Unsat Iron Binding Total Bilirubin AST ALT Alkaline Phosphatase Ammonia Troponin I High Sens 16.9 Total Protein Albumin Triglycerides Cholesterol LDL Cholesterol, Calc HDL Cholesterol Vitamin B12 Folate Urine Color YELLOW Urine Appearance CLEAR Urine pH 6.5 Ur Specific [place] 1.015 Urine Protein 1+ H Urine Glucose (UA) 500 H Urine Ketones 15 Urine Blood NEG Urine Nitrite NEG Ur Leukocyte Esterase NEG Urine RBC 0-2 Urine WBC 1-4 Ur Squamous Epith Cells 3+ Urine Bacteria 2+ Hyaline Casts 0-2 Granular Casts 0-2 Urine Mucus 2+ Salicylates Urine Opiates Screen Not Detected Urine Fentanyl Screen Not Detected Acetaminophen Ur Barbiturates Screen Not Detected Ur Phencyclidine Scrn Not Detected Ur Amphetamines Screen Not Detected U Benzodiazepines Scrn Not Detected Urine Cocaine Screen Not Detected U Marijuana (THC) Screen Not Detected Ethyl Alcohol COVID-19 ([facility]) COVID-19 Clin Com 08/22/21 08/22/21 08/22/21 05:44 05:44 05:44 MCV 88.5 MCH 30.2 MCHC 34.1 RDW 13.2 Plt Count 258 MPV 10.0 Immature Gran % (Auto) 0.2 Neut % (Auto) 63.1 Lymph % (Auto) 29.5 [place] % (Auto) 5.3 Eos % (Auto) 1.5 Baso % (Auto) 0.4 Lymph # (Auto) 2.8 [place] # (Auto) 0.5 Eos # (Auto) 0.1 Baso # (Auto) 0.0 Abs Immat Gran (auto) 0.02 Absolute Neuts (auto) 6.0 Absolute Nucleated RBC 0.000 Nucleated RBC % (auto) 0.0 PT INR APTT Anion Gap 10 L Estim Creat Clear Calc 97.4 Estimated GFR > 60 POC Glucose Random Glucose 166 H Calcium 9.1 D Iron TIBC % Saturation Unsat Iron Binding Total Bilirubin AST ALT Alkaline Phosphatase Ammonia Troponin I High Sens Total Protein Albumin Triglycerides 125 Cancelled Cholesterol 171 Cancelled LDL Cholesterol, Calc 114 Cancelled HDL Cholesterol 32 Cancelled Vitamin B12 Folate Urine Color Urine Appearance Urine pH Ur Specific [place] Urine Protein Urine Glucose (UA) Urine Ketones Urine Blood Urine Nitrite Ur Leukocyte Esterase Urine RBC Urine WBC Ur Squamous Epith Cells Urine Bacteria Hyaline Casts Granular Casts Urine Mucus Salicylates Urine Opiates Screen Urine Fentanyl Screen Acetaminophen Ur Barbiturates Screen Ur Phencyclidine Scrn Ur Amphetamines Screen U Benzodiazepines Scrn Urine Cocaine Screen U Marijuana (THC) Screen Ethyl Alcohol COVID-19 ([facility]) COVID-19 Clin Com Assessment and Plan (1) Altered mental status: Status: Acute Plan 56-year-old female who comes in from home with unclear history around her arrival on [place] 12 presents to the hospital found to have stroke on head CT # metabolic encephalopathy CT head, CTA head and neck unremarkable for acute insult Pending neurological consult started on high-dose atorvastatin, aspirin Pending MRI Not a medication that would affect her mind, unclear baseline mentation To get psychiatry evaluation # diabetes continue home insulin add low-dose sliding scale insulin diabetic diet # uncontrolled hypertension elevated blood pressure Not on any home antihypertensives Start amlodipine 5 mg daily DVT prophylaxis: [employer] Quality Stroke Does the patient have a stroke diagnosis?: No VTE Prior VTE?: No VTE Risk Level:: Medical - moderate - high VTE Device Contraindication: Treatment Not Indicated VTE Drug Contraindication: N/A - Med Ordered
--- NOTE | 2021-08-22 13:39 | P.CNNE_ITS ---
History of Present Illness Data of Consult Service Date: 08/22/21 Primary Care Provider: Unknown Physician HPI Reason for consult: Stroke 56 years old woman who was brought to hospital with unclear history and she was not able to provide any meaningful history. She was sitting up talking but not consistently following commands and seem to be in somewhat hypomanic state. She was not in any distress. This consultation was prompted by finding on head [facility] Past Medical History Medical History (Updated 08/22/21 @ 05:46 by Jorge Davis MD) Diabetes Social History Social History Patient Tobacco Use Status: Former Tobacco user Smoked in Last 30 Days: No Use of substances other than those prescribed or required for medical reasons: Refusing to respond Advance Directives: No Advance Directives Information Provided: No Meds Allergies Allergy/AdvReac Type Severity Reaction Status Date / Time No Known Allergies Allergy Verified 08/21/21 18:57 Active Medications: Current Medications Acetaminophen (Acetaminophen 325 Mg Tablet) 650 mg PO Q6H PRN PRN Reason: Pain, Mild (Pain Scale 1-3) Amlodipine Besylate (Amlodipine Besylate 5 Mg Tablet) 5 mg PO DAILY [facility]; Protocol Aspirin (Aspirin Enteric Coated 81 Mg Tablet.Dr) 81 mg PO DAILY [facility] Last Admin: 08/22/21 09:21 Dose: Not Given Documented by: Atorvastatin Calcium (Atorvastatin Calcium 80 Mg Tablet) 80 mg PO BEDTIME [facility] Dextrose (Dextrose 50 % 25 Gm/50 Ml Syringe) 25 gm IVPUSH Q15M PRN; Protocol PRN Reason: per Hypoglycemia Standing Ord. Docusate Sodium (Docusate Sodium 100 Mg Capsule) 100 mg PO DAILY PRN PRN Reason: Constipation Glucose (Glucose Gel 15 Gm Gel..Gram.) 15 gm PO Q15M PRN; Protocol PRN Reason: per Hypoglycemia Standing Ord. Insulin Glargine (Insulin Glargine,Hum.Rec.Anlog 100 Unit/Ml 10 Ml Vial) 12 unit SUBCUT DAILY [facility] Last Admin: 08/22/21 09:21 Dose: Not Given Documented by: Insulin Human Lispro (Insulin Lispro 100 Unit/Ml 3 Ml Vial) 0 unit SUBCUT QIDACHS [facility]; Protocol Last Admin: 08/22/21 07:32 Dose: Not Given Documented by: Ondansetron HCl (Ondansetron Hcl 4 Mg/2 Ml Vial) 4 mg IVPUSH Q8H PRN PRN Reason: Nausea and Vomiting Home Medications Medication Instructions Recorded Confirmed Last Taken Type insulin aspart See Protocol 08/21/21 08/21/21 Unknown History U-100 100 unit/mL SUBCUT TID subcutaneous solution (Novolog U-100 Insulin aspart) insulin glargine 12 unit SUBCUT 08/21/21 08/21/21 Unknown History 100 unit/mL QAM subcutaneous solution (Lantus U-100 Insulin) metformin 500 mg 2 tab PO BID 08/21/21 08/21/21 Unknown History tablet Physical Exam Verdana 4l Vital Signs: Verdana 4d Verdana 4d Vital Signs: Verdana 4d Verdana 4Bd Last Vital Signs Verdana 4d Behavioral Health Professional New 4d Behavioral Health Professional New 4d Temp 98.7 F 08/21/21 23:09 Behavioral Health Professional New 4d Pulse 71 08/22/21 06:23 Behavioral Health Professional New 4d Resp 12 08/22/21 06:23 BP 162/73 H 08/22/21 06:23 Pulse Ox 98 08/22/21 06:23 BMI result Body Mass Index 26.5 Neuro: Other: He was alert and awake continuously talking and somewhat cooperative. She said that she knew she was in hospital but did not know what had happened. There was no obvious focal weakness. Face was symmetrical. Exam was limited as she was not fully cooperative. Results Labs CBC & Chem 7: 08/22/21 05:44 08/22/21 05:44 Labs: Short CBC 08/21/21 08/22/21 Range/Units 19:34 05:44 WBC 10.0 9.6 (4.8-10.8) X10*3/uL Hgb 14.6 13.1 (12.0-16.0) g/dl Hct 42.6 38.4 (37.0-47.0) % Plt Count 293 258 (160-400) X10*3/uL BMP 08/21/21 08/22/21 19:34 05:44 Sodium 142 141 Potassium 3.0 L 3.1 L Chloride 101 105 Carbon Dioxide 30 H 29 BUN 17 H 13 Creatinine 0.76 0.59 Calcium 10.3 H 9.1 D Liver Function 08/21/21 Range/Units 19:34 Total Bilirubin 0.5 (0.0-1.0) mg/dL AST 17 (5-31) U/L ALT 19 (0-31) U/L Alkaline Phosphatase 107 (39-117) U/L Albumin 4.3 (3.5-5.0) g/dL Urine 08/21/21 Range/Units 23:02 Urine Color YELLOW Urine Appearance CLEAR Urine pH 6.5 (5.0-8.0) Ur Specific [place] 1.015 (1.005-1.025) Urine Protein 1+ H (NEG-TRACE) MG/DL Urine Glucose (UA) 500 H (NEG) MG/DL She has a CT and CTA of head and neck. To me, it looks like she has a chronic left cerebellar infarct. I did not notice any obvious occipital lesion. Assessment and Plan (1) Altered mental status: Status: Acute 56 years old woman with unclear presentation not able to provide any definitive history. Examination is nonfocal. Finding on CT is a chronic left cerebellar infarct. At this time I would recommend obtaining a noncontrast MRI to rule out any further infarct and an EEG, other than metabolic workup to rule out any metabolic toxic reasons for confusion Procedures Date of Service Date of Service: 08/22/21
[2021-08-22 15:09] LABS: Glucose, Whole Blood 376 mg/dL (60-115)
[2021-08-22] MEDS: Insulin Lispro 100 UNIT/ML 3 ML VIAL SUBCUT ×3 (15:15→23:16)
[2021-08-22 15:33] VITALS: BP 211/102; PULSE 104; RESP 18; TEMP 37.3; O2SAT 97
[2021-08-22] MEDS: hydrALAZINE HCl 20 MG/ML VIAL 10 MG IVPUSH (16:46)
[2021-08-22 16:47] VITALS: BP 186/108
[2021-08-22] MEDS: Haloperidol Lactate 5 MG/ML VIAL IVPUSH (16:47)
[2021-08-22] MEDS: cefTRIAXone sodium 1 GM in 0.9 % Sodium Chloride 50 ML IV (16:47)
--- NOTE | 2021-08-22 16:51 | PC.NURSE ---
medicated per emar. will attempt xrays.
--- NOTE | 2021-08-22 18:47 | PC.NURSE ---
okay from md boston to wait for mri tomorrow. mri aware. md boston- aware of this rn asking for psych consult/meds throughout the day
[2021-08-22] MEDS: Atorvastatin Calcium 80 MG TABLET PO (21:13)
[2021-08-22] MEDS: QUEtiapine Fumarate 25 MG TABLET PO (21:13)
[2021-08-22 21:29] LABS: Glucose, Whole Blood 384 mg/dL (60-115)
[2021-08-22 22:30] VITALS: BMI 21.2
[2021-08-22 22:40] VITALS: BP 171/74; PULSE 88; RESP 20; TEMP 36.9; O2SAT 96
--- NOTE | 2021-08-23 | EEG_ITS ---
This is a 16-channel EEG with an EKG lead. Patient is reported confused during the tracing. Background EEG rhythm is 12 to 14 hertz, 5 to 15 microvolts posteriorly, lower amplitude fast anteriorly. Intermittently right frontotemporal theta range slowing, sometimes sharply contoured in waveform and at times sharp waves were noted. Photic stimulation does not produce any significant driving. Hyperventilation is not done. Cardiac lead does not reveal an abnormality. 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 MD CATALINA Hernandez/CHARBEL / [id number]
[2021-08-23 04:00] VITALS: BP 169/81; PULSE 84; RESP 18; TEMP 36.8; O2SAT 98
[2021-08-23 06:42] LABS: Hematocrit 37.1 % (37.0-47.0); Hemoglobin 12.5 g/dl (12.0-16.0); Mean Corpuscular HGB Conc 33.7 g/dl (31.0-35.0); Mean Corpuscular Hemoglobin 29.3 pg (27.0-33.0); Mean Corpuscular Volume 86.9 fL (80.0-98.0); Mean Platelet Volume 10.5 fL (9.4-12.3); Platelet Count 266 X10*3/uL (160-400); Red Blood Count 4.27 X10*6/uL (4.20-5.50); Red Cell Distribution Width 13.1 % (11.0-16.0); White Blood Count 8.8 X10*3/uL (4.8-10.8)
[2021-08-23 06:58] LABS: Anion Gap 10 (12-20); Blood Urea Nitrogen 15 mg/dL (9-16); Calcium 9.3 mg/dL (8.4-10.2); Carbon Dioxide 30 mmol/L (22-29); Chloride 104 mmol/L (96-108); Creatinine Clr Calc Pharmacy 84.2; Estimated Glomerular Filt Rate > 60; Glucose Random 183 mg/dL (60-115); Potassium 3.4 mmol/L (3.3-5.1); Sodium 141 mmol/L (135-145)
[2021-08-23 07:17] LABS: Glucose, Whole Blood 188 mg/dL (60-115)
[2021-08-23 07:36] VITALS: BP 163/79; PULSE 81; RESP 16; TEMP 36.5; O2SAT 96
[2021-08-23] MEDS: amLODIPine Besylate 5 MG TABLET PO (08:16)
[2021-08-23] MEDS: Insulin Lispro 100 UNIT/ML 3 ML VIAL SUBCUT ×4 (08:16→20:35)
[2021-08-23] MEDS: Aspirin Enteric Coated 81 MG TABLET.DR PO (08:16)
[2021-08-23 11:01] LABS: Glucose, Whole Blood 356 mg/dL (60-115)
[2021-08-23 12:00] VITALS: BP 187/97; PULSE 93; RESP 16; TEMP 36.8; O2SAT 97
[2021-08-23] MEDS: Insulin Glargine,Hum.rec.anlog 100 UNIT/ML 10 ML VIAL 12 UNIT SUBCUT (12:20)
--- NOTE | 2021-08-23 12:26 | P.PNIM_ITS ---
Subjective Subjective Date of Service: 08/23/21 Interval History: the patient was seen and evaluated this morning looks more comfortable, still confused but not agitated as before Refuses care on occasions EEG and MRI done denies any pain Systemic review: No fever, chills or weakness No chest pain, palpitation No shortness of breath or coughing No abdominal pain, nausea or vomiting No urinary symptoms No any rash or wounds Physical Exam Verdana 4l Vital Signs: Verdana 4d Verdana 4d Vital Signs: Verdana 4d Verdana 4Bd Last Vital Signs Verdana 4d Waiter/Waitress Head New 4d Waiter/Waitress Head New 4d Temp 97.7 F 08/23/21 07:36 Waiter/Waitress Head New 4d Pulse 81 08/23/21 07:36 Waiter/Waitress Head New 4d Resp 16 08/23/21 07:36 BP 163/79 H 08/23/21 07:36 Pulse Ox 96 08/23/21 07:36 BMI result Body Mass Index 21.2 Const: Other: Constitutional : Alert, oriented to self and place seems slightly anxious and very talkative Neck : Normal inspection, Supple Cardiovascular : RRR, S1 S2, no lower extremity edema Respiratory : Good bilateral air entry, no crackles, wheezes or rhonchi Gastrointestinal: soft, lax, Normal bowel sounds, Non tender Skin : Warm, Dry Neurological : Alert & oriented to self and place, No focal deficit appreciated, not following commands Objective Data Active Medications Acetaminophen (Acetaminophen 325 Mg Tablet) 650 mg PO Q6H PRN PRN Reason: Pain, Mild (Pain Scale 1-3) Amlodipine Besylate (Amlodipine Besylate 5 Mg Tablet) 5 mg PO DAILY [facility]; Protocol Last Admin: 08/23/21 08:16 Dose: 5 mg Documented by: TIMOTHY Aspirin (Aspirin Enteric Coated 81 Mg Tablet.) 81 mg PO DAILY [facility] Last Admin: 08/23/21 08:16 Dose: 81 mg Documented by: TIMOTHY Atorvastatin Calcium (Atorvastatin Calcium 80 Mg Tablet) 80 mg PO BEDTIME [facility] Last Admin: 08/22/21 21:13 Dose: 80 mg Documented by: ANNELISE Dextrose (Dextrose 50 % 25 Gm/50 Ml Syringe) 25 gm IVPUSH Q15M PRN; Protocol PRN Reason: per Hypoglycemia Standing Ord. Docusate Sodium (Docusate Sodium 100 Mg Capsule) 100 mg PO DAILY PRN PRN Reason: Constipation Glucose (Glucose Gel 15 Gm Gel..Gram.) 15 gm PO Q15M PRN; Protocol PRN Reason: per Hypoglycemia Standing Ord. Ceftriaxone Sodium 1 gm/ (Sodium Chloride) 50 mls @ 100 mls/hr IV Q24H [facility] Last Infusion: 08/22/21 17:17 Dose: 0 mls/hr Documented by: BLANCHE Insulin Glargine (Insulin Glargine,Hum.Rec.Anlog 100 Unit/Ml 10 Ml Vial) 12 unit SUBCUT DAILY [facility] Last Admin: 08/23/21 12:20 Dose: 12 unit Documented by: TIMOTHY Insulin Human Lispro (Insulin Lispro 100 Unit/Ml 3 Ml Vial) 0 unit SUBCUT QIDACHS [facility]; Protocol Last Admin: 08/23/21 12:21 Dose: 10 unit Documented by: TIMOTHY Ondansetron HCl (Ondansetron Hcl 4 Mg/2 Ml Vial) 4 mg IVPUSH Q8H PRN PRN Reason: Nausea and Vomiting Quetiapine Fumarate (Quetiapine Fumarate 25 Mg Tablet) 25 mg PO BEDTIME [facility] Last Admin: 08/22/21 21:13 Dose: 25 mg Documented by: ANNELISE Labs CBC & Chem 7: 08/23/21 05:42 08/23/21 05:42 Labs: Laboratory Results - last 24 hr 08/22/21 08/22/21 08/23/21 15:04 21:22 05:42 MCV 86.9 MCH 29.3 MCHC 33.7 RDW 13.1 Plt Count 266 MPV 10.5 Absolute Nucleated RBC 0.000 Nucleated RBC % (auto) 0.0 Anion Gap Estim Creat Clear Calc Estimated GFR POC Glucose 376 H* 384 H* Random Glucose Calcium 08/23/21 08/23/21 08/23/21 05:42 07:06 10:53 MCV MCH MCHC RDW Plt Count MPV Absolute Nucleated RBC Nucleated RBC % (auto) Anion Gap 10 L Estim Creat Clear Calc 84.2 Estimated GFR > 60 POC Glucose 188 H 356 H* Random Glucose 183 H Calcium 9.3 Assessment and Plan (1) Seizure disorder: Status: Acute (2) Altered mental status: Status: Acute (3) Metabolic encephalopathy: Status: Acute Plan 56-year-old female who comes in from home with unclear history around her arrival on section 12 presents to the hospital found to have stroke on head CT # metabolic encephalopathy # 2/[address] head, CTA head and neck unremarkable for acute insult MRI not showing any acute findings but hold occipital infarction Keep on high-dose atorvastatin, aspirin for secondary prevention EEG done showing evidence of seizure activity Start Keppra 250 b.i.d. Started on IV antibiotic for possible UTI will hold on psych consult and monitor response for anti seizure treatment # diabetes continue home insulin low-dose sliding scale insulin diabetic diet # uncontrolled hypertension elevated blood pressure Not on any home antihypertensives Continue amlodipine 5 mg daily DVT prophylaxis: [employer] Quality Stroke Does the patient have a stroke diagnosis?: No VTE Prior VTE?: No VTE Risk Level:: Medical - moderate - high VTE Device Contraindication: Treatment Not Indicated VTE Drug Contraindication: N/A - Med Ordered
[2021-08-23] MEDS: levETIRAcetam in NaCl (iso-os) 500 MG/100 ML PIGGYBACK 400 MG IV (13:46)
[2021-08-23 15:19] VITALS: BP 148/77; PULSE 86; RESP 17; TEMP 36.9; O2SAT 97
[2021-08-23 16:41] LABS: Glucose, Whole Blood 277 mg/dL (60-115)
[2021-08-23] MEDS: cefTRIAXone sodium 1 GM in 0.9 % Sodium Chloride 50 ML IV (17:03)
[2021-08-23 18:53] VITALS: BP 182/96; PULSE 97; RESP 18; TEMP 36.8; O2SAT 95
[2021-08-23] MEDS: Atorvastatin Calcium 80 MG TABLET PO (20:35)
[2021-08-23] MEDS: QUEtiapine Fumarate 25 MG TABLET PO (20:35)
[2021-08-23] MEDS: levETIRAcetam 250 MG TABLET PO (20:35)
[2021-08-23 20:48] LABS: Glucose, Whole Blood 179 mg/dL (60-115)
[2021-08-23 23:40] VITALS: BP 157/76; PULSE 82; RESP 17; TEMP 36.6; O2SAT 97
[2021-08-24 04:00] VITALS: BP 156/85; PULSE 76; RESP 17; TEMP 36.3; O2SAT 94
[2021-08-24 07:12] VITALS: PULSE 78; RESP 20; TEMP 36.9
[2021-08-24 07:24] LABS: Hematocrit 37.7 % (37.0-47.0); Hemoglobin 12.8 g/dl (12.0-16.0); Mean Corpuscular Hemoglobin 29.4 pg (27.0-33.0); Mean Corpuscular Volume 86.5 fL (80.0-98.0); Mean Platelet Volume 10.8 fL (9.4-12.3); Platelet Count 268 X10*3/uL (160-400); Red Blood Count 4.36 X10*6/uL (4.20-5.50); Red Cell Distribution Width 12.9 % (11.0-16.0); White Blood Count 8.9 X10*3/uL (4.8-10.8)
[2021-08-24 07:26] LABS: Glucose, Whole Blood 182 mg/dL (60-115)
[2021-08-24 07:51] LABS: Anion Gap 12 (12-20); Blood Urea Nitrogen 9 mg/dL (9-16); Calcium 9.1 mg/dL (8.4-10.2); Carbon Dioxide 28 mmol/L (22-29); Chloride 102 mmol/L (96-108); Creatinine Clr Calc Pharmacy 91.6; Estimated Glomerular Filt Rate > 60; Glucose Random 179 mg/dL (60-115); Potassium 3.3 mmol/L (3.3-5.1); Sodium 139 mmol/L (135-145)
[2021-08-24] MEDS: levETIRAcetam 250 MG TABLET PO (07:59)
[2021-08-24] MEDS: Aspirin Enteric Coated 81 MG TABLET.DR PO (07:59)
[2021-08-24] MEDS: amLODIPine Besylate 5 MG TABLET PO (07:59)
[2021-08-24] MEDS: Insulin Lispro 100 UNIT/ML 3 ML VIAL SUBCUT ×3 (07:59→20:41)
[2021-08-24 10:55] VITALS: BP 135/84; PULSE 83; RESP 20; TEMP 36.8; O2SAT 97
[2021-08-24 11:13] LABS: Glucose, Whole Blood 274 mg/dL (60-115)
[2021-08-24] MEDS: Insulin Glargine,Hum.rec.anlog 100 UNIT/ML 10 ML VIAL 12 UNIT SUBCUT (11:43)
--- NOTE | 2021-08-24 11:49 | P.PNIM_ITS ---
Subjective Subjective Date of Service: 08/24/21 Interval History: the patient was seen and evaluated this morning looks more comfortable, still confused but not agitated as before EEG showed evidence of seizure activity denies any pain Systemic review: No fever, chills or weakness No chest pain, palpitation No shortness of breath or coughing No abdominal pain, nausea or vomiting No urinary symptoms No any rash or wounds Physical Exam Verdana 4l Vital Signs: Verdana 4d Verdana 4d Vital Signs: Verdana 4d Verdana 4Bd Last Vital Signs Verdana 4d Refinery Operator Helper Cracking Unit New 4d Refinery Operator Helper Cracking Unit New 4d Temp 98.3 F 08/24/21 10:55 Refinery Operator Helper Cracking Unit New 4d Pulse 83 08/24/21 10:55 Refinery Operator Helper Cracking Unit New 4d Resp 20 08/24/21 10:55 BP 135/84 08/24/21 10:55 Pulse Ox 97 08/24/21 10:55 BMI result Body Mass Index 21.2 Const: Other: Constitutional : Alert, oriented to self and place seems slightly anxious and very talkative Neck : Normal inspection, Supple Cardiovascular : RRR, S1 S2, no lower extremity edema Respiratory : Good bilateral air entry, no crackles, wheezes or rhonchi Gastrointestinal: soft, lax, Normal bowel sounds, Non tender Skin : Warm, Dry Neurological : Alert & oriented to self and place, No focal deficit appreciated, not following commands Objective Data Active Medications Acetaminophen (Acetaminophen 325 Mg Tablet) 650 mg PO Q6H PRN PRN Reason: Pain, Mild (Pain Scale 1-3) Amlodipine Besylate (Amlodipine Besylate 5 Mg Tablet) 5 mg PO DAILY [facility]; Protocol Last Admin: 08/24/21 07:59 Dose: 5 mg Documented by: ARSH Aspirin (Aspirin Enteric Coated 81 Mg Tablet.) 81 mg PO DAILY [facility] Last Admin: 08/24/21 07:59 Dose: 81 mg Documented by: ARSH Atorvastatin Calcium (Atorvastatin Calcium 80 Mg Tablet) 80 mg PO BEDTIME [facility] Last Admin: 08/23/21 20:35 Dose: 80 mg Documented by: COLBY Dextrose (Dextrose 50 % 25 Gm/50 Ml Syringe) 25 gm IVPUSH Q15M PRN; Protocol PRN Reason: per Hypoglycemia Standing Ord. Docusate Sodium (Docusate Sodium 100 Mg Capsule) 100 mg PO DAILY PRN PRN Reason: Constipation Glucose (Glucose Gel 15 Gm Gel..Gram.) 15 gm PO Q15M PRN; Protocol PRN Reason: per Hypoglycemia Standing Ord. Ceftriaxone Sodium 1 gm/ (Sodium Chloride) 50 mls @ 100 mls/hr IV Q24H [facility] Last Infusion: 08/23/21 17:40 Dose: 0 mls/hr Documented by: TIMOTHY Insulin Glargine (Insulin Glargine,Hum.Rec.Anlog 100 Unit/Ml 10 Ml Vial) 12 unit SUBCUT DAILY [facility] Last Admin: 08/24/21 11:43 Dose: 12 unit Documented by: ARSH Insulin Human Lispro (Insulin Lispro 100 Unit/Ml 3 Ml Vial) 0 unit SUBCUT QIDACHS [facility]; Protocol Last Admin: 08/24/21 11:44 Dose: 6 unit Documented by: ARSH Levetiracetam (Levetiracetam 250 Mg Tablet) 250 mg PO BID [facility] [place] Last Admin: 08/24/21 07:59 Dose: 250 mg Documented by: ARSH Ondansetron HCl (Ondansetron Hcl 4 Mg/2 Ml Vial) 4 mg IVPUSH Q8H PRN PRN Reason: Nausea and Vomiting Quetiapine Fumarate (Quetiapine Fumarate 25 Mg Tablet) 25 mg PO BEDTIME [facility] Last Admin: 08/23/21 20:35 Dose: 25 mg Documented by: COLBY Labs CBC & Chem 7: 08/24/21 06:14 08/24/21 06:14 Labs: Laboratory Results - last 24 hr 08/23/21 08/23/21 08/24/21 16:27 20:30 06:14 MCV 86.5 MCH 29.4 MCHC 34.0 RDW 12.9 Plt Count 268 MPV 10.8 Absolute Nucleated RBC 0.000 Nucleated RBC % (auto) 0.0 Anion Gap Estim Creat Clear Calc Estimated GFR POC Glucose 277 H 179 H Random Glucose Calcium 08/24/21 08/24/21 08/24/21 06:14 07:11 10:54 MCV MCH MCHC RDW Plt Count MPV Absolute Nucleated RBC Nucleated RBC % (auto) Anion Gap 12 Estim Creat Clear Calc 91.6 Estimated GFR > 60 POC Glucose 182 H 274 H Random Glucose 179 H Calcium 9.1 Assessment and Plan (1) Metabolic encephalopathy: Status: Acute (2) Seizure disorder: Status: Acute Plan 56-year-old female who comes in from home with unclear history around her arrival on section 12 presents to the hospital found to have stroke on head CT # metabolic encephalopathy # 2/[address] head, CTA head and neck unremarkable for acute insult MRI not showing any acute findings but hold occipital infarction Keep on high-dose atorvastatin, aspirin for secondary prevention EEG done showing evidence of seizure activity Keppra 250 b.i.d. DC IV antibiotic for possible UTI # Hx Bipolar disease Not on medications symptoms concerning for possible antonio attack get psych consult # diabetes continue home insulin low-dose sliding scale insulin diabetic diet # uncontrolled hypertension elevated blood pressure Not on any home antihypertensives Continue amlodipine 5 mg daily DVT prophylaxis: ODK Media Quality Stroke Does the patient have a stroke diagnosis?: No VTE Prior VTE?: No VTE Risk Level:: Medical - moderate - high VTE Device Contraindication: Treatment Not Indicated VTE Drug Contraindication: N/A - Med Ordered
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
[2021-08-24 15:07] VITALS: BP 195/90; PULSE 92; RESP 20; TEMP 36.8; O2SAT 99
[2021-08-24 15:17] VITALS: BP 165/70
[2021-08-24 16:05] LABS: Glucose, Whole Blood 277 mg/dL (60-115)
[2021-08-24 19:07] VITALS: BP 184/90; PULSE 86; RESP 20; TEMP 36.5; O2SAT 97
[2021-08-24 19:49] LABS: Glucose, Whole Blood 393 mg/dL (60-115)
[2021-08-24] MEDS: carBAMazepine 200 MG TABLET PO (20:40)
[2021-08-24] MEDS: Atorvastatin Calcium 80 MG TABLET PO (20:40)
[2021-08-25] VITALS: BP 167/82; PULSE 92; RESP 16; TEMP 36.2; O2SAT 98
[2021-08-25 04:58] VITALS: BP 166/72; PULSE 89; RESP 16; TEMP 36.7; O2SAT 98
[2021-08-25 08:00] VITALS: BP 216/106; PULSE 99; RESP 18; TEMP 36.3; O2SAT 97
[2021-08-25 08:02] LABS: Glucose, Whole Blood 140 mg/dL (60-115)
[2021-08-25] MEDS: Aspirin Enteric Coated 81 MG TABLET.DR PO (09:37)
[2021-08-25] MEDS: carBAMazepine 200 MG TABLET PO (09:37)
[2021-08-25] MEDS: amLODIPine Besylate 5 MG TABLET PO ×2 (09:37→13:47)
[2021-08-25] MEDS: Insulin Glargine,Hum.rec.anlog 100 UNIT/ML 10 ML VIAL 12 UNIT SUBCUT (09:38)
[2021-08-25] MEDS: Insulin Lispro 100 UNIT/ML 3 ML VIAL SUBCUT ×2 (11:28→16:20)
[2021-08-25 11:30] VITALS: BP 190/92; PULSE 98; RESP 18; TEMP 36.4; O2SAT 96
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
[2021-08-25 12:10] VITALS: BP 148/82
[2021-08-25 14:00] LABS: COVID-19 Test Negative (Negative)
[2021-08-25 14:33] LABS: Glucose, Whole Blood 308 mg/dL (60-115)
[2021-08-25 14:59] VITALS: BP 177/91; PULSE 115; RESP 20; TEMP 36.5; O2SAT 97
[2021-08-25 16:13] LABS: Glucose, Whole Blood 280 mg/dL (60-115)
== END 2021-08-25 16:44 | DRG 53 ==
LOC: HO.ED 23:38 → HO.EDOVER 08-22 00:51 → HO.IMC 08-22 19:38
PROVIDERS: Nurse Practitioner Family; Admitting Provider Internal Medicine; Emergency Provider Emergency Medicine; Visit Provider Student in an Organized Health Care Education/Training Program
DX: G40.909 Epilepsy, unspecified, not intractable, without status epilepticus (principal); E11.9 Type 2 diabetes mellitus without complications; F31.9 Bipolar disorder, unspecified; I10 Essential (primary) hypertension; Z79.4 Long term (current) use of insulin; Z79.82 Long term (current) use of aspirin; Z79.84 Long term (current) use of oral hypoglycemic drugs; Z79.899 Other long term (current) drug therapy
CPT/HCPCS: 36415; 70450; 70496; 70498; 70551; 71045; 74018; 80048; 80053; 80061; 80143; 80179; 80307; 81001; 82077; 82140; 82607; 82746; 82947; 83540; 84484; 85025; 85027; 85610; 85730; 87635; 90471; 90715; 93005; 95816; 96360; 99285; 99291; J0696; J1953

== ENCOUNTER 2021-08-25 14:18 | Inpatient (IN) | payer OTHER, SELFPAY ==
[2021-08-25 18:10] VITALS: BP 138/86; PULSE 104; RESP 18; TEMP 37; O2SAT 97
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
[2021-08-25 19:07] VITALS: BMI 20.8
[2021-08-25] MEDS: traZODone HCL 50 MG TABLET PO (22:15)
[2021-08-26 08:00] VITALS: BP 136/87; PULSE 94; TEMP 35.9; O2SAT 97
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
[2021-08-26 08:27] LABS: Glucose, Whole Blood 179 mg/dL (60-115)
[2021-08-26 11:51] LABS: Glucose, Whole Blood 180 mg/dL (60-115)
[2021-08-26] MEDS: metFORMIN HCl 1,000 MG TABLET 1000 MG PO (11:56)
[2021-08-26] MEDS: Insulin Lispro 100 UNIT/ML 3 ML VIAL SUBCUT ×3 (11:56→23:54)
[2021-08-26 17:04] LABS: Glucose, Whole Blood 308 mg/dL (60-115)
[2021-08-26 22:40] VITALS: PULSE 93; TEMP 36.3; O2SAT 98
[2021-08-26 23:00] LABS: Glucose, Whole Blood 195 mg/dL (60-115)
[2021-08-26] MEDS: traZODone HCL 100 MG TABLET PO (23:48)
[2021-08-26 23:51] LABS: Glucose, Whole Blood 197 mg/dL (60-115)
[2021-08-27] MEDS: carBAMazepine 200 MG TABLET PO (05:10)
[2021-08-27 08:42] LABS: Glucose, Whole Blood 254 mg/dL (60-115)
[2021-08-27 08:45] VITALS: BP 140/90; PULSE 102; RESP 16; TEMP 36.6; O2SAT 95
[2021-08-27] MEDS: Insulin Glargine,Hum.rec.anlog 100 UNIT/ML 10 ML VIAL 12 UNIT SUBCUT (08:52)
[2021-08-27] MEDS: amLODIPine Besylate 10 MG TABLET PO (08:52)
[2021-08-27] MEDS: Aspirin Enteric Coated 81 MG TABLET.DR PO (08:52)
[2021-08-27] MEDS: metFORMIN HCl 1,000 MG TABLET 1000 MG PO (08:52)
[2021-08-27] MEDS: Insulin Lispro 100 UNIT/ML 3 ML VIAL SUBCUT ×4 (08:53→21:47)
[2021-08-27 09:13] LABS: Estimated Average Glucose 232 mg/dL; Hemoglobin A1c % 9.7 %
[2021-08-27 09:21] LABS: TSH reflex Free T4 2.02 uIU/mL (0.32-4.0)
--- NOTE | 2021-08-27 11:14 | P.PNPSI_ITS ---
Subjective Subjective Date of Service: 08/27/21 Reason For Visit: antonio Subjective Notes: Section 12B Interim History: Pt continues to present as hyperverbal and speech is very disorganized and hard to follow. She reports she is suicidal because father made me be in moral sin. Pt reports father refused to her mother by [employer]. She does report her family where not [employer]alian but states states they should be. Pt paranoid towards providers, stating she can't trust doctors because they have given her wrong medications. She reports she is leaving the hospital tomorrow AMA to go to the electronic field service engineer. Pt denies any plan or intent to hurt herself. Pt rep orts she had problems with refrigerator, unclear what this is about but pt keeps bring it up. She finally agreed to try olanzapine along with carbamazepine. Per nursing, pt intrusive with other pts, irritable at times, suspicious, refused risperidone. Medication Compliance: Intermittent Side effects from medications: No Attending Groups: No Review of Systems Acute medical concerns: No Review of Systems Constitutional: Reports weight loss Cardiovascular: Denies chest pain, Denies rapid heart rate and Denies irregular heart rhythm Mental Status Exam Mental Status Exam Narrative: Appearance: thin, short hair, casually groomed, fair hygiene in NAD Behavior:calm, no overt suspiciousness psychomotor:no agitation or retardation noted Speech:mumbles at times, regular rate but hyperverbal, unintelligible, spontaneous Thought process:disorganized, loose associations Thought content:some suspiciousness and mistrust, looking to get better, some awareness that mentally not doing well and needing help with making decisions Mood: okay Affect: constricted SI:denies HI:denies VH/AH:appears internally preoccupied Delusions:suspiciousness Insight/judgment:impaired x 2. Memory/cog: alert, oriented to year, month, not to situation. severely impaired otherwise to meet minimal demands to care for self. Diagnostics Vital Signs (24Hr): Vital Signs - 24 hr 08/26/21 22:40 Temperature 97.3 F Pulse Rate 93 Pulse Oximetry 98 BMI result Verdana 4 Body Mass Index Verdana 4 20.8 Verdana 4 Verdana 4 Labs Labs: Laboratory Results - last 48 hr 08/26/21 08/26/21 08/26/21 08:23 11:45 16:58 POC Glucose 179 H 180 H 308 H Estimat Average Glucose Hemoglobin A1c % TSH 08/26/21 08/26/21 08/27/21 22:46 23:43 07:57 POC Glucose 195 H 197 H 254 H Estimat Average Glucose Hemoglobin A1c % TSH 08/27/21 08/27/21 08:29 08:29 POC Glucose Estimat Average Glucose 232 Hemoglobin A1c % 9.7 TSH 2.02 Medications Medications Current Medications Acetaminophen (Acetaminophen 325 Mg Tablet) 650 mg PO Q6H PRN PRN Reason: Headache/Pain Mild Scale (1-3) Al Hydroxide/Mg Hydroxide (Magnesium Hydrox/Alum Hydrox 30 Ml Oral.Susp) 30 ml PO Q6H PRN PRN Reason: Heartburn/Nausea Amlodipine Besylate (Amlodipine Besylate 10 Mg Tablet) 10 mg PO DAILY [facility]; Protocol Last Admin: 08/27/21 08:52 Dose: 10 mg Documented by: Aspirin (Aspirin Enteric Coated 81 Mg Tablet.) 81 mg PO DAILY [facility] Last Admin: 08/27/21 08:52 Dose: 81 mg Documented by: Atorvastatin Calcium (Atorvastatin Calcium 80 Mg Tablet) 80 mg PO BEDTIME [facility] Last Admin: 08/26/21 23:49 Dose: Not Given Documented by: Carbamazepine (Carbamazepine 200 Mg Tablet) 200 mg PO BID [facility] Last Admin: 08/27/21 05:10 Dose: 200 mg Documented by: Docusate Sodium (Docusate Sodium 100 Mg Capsule) 100 mg PO DAILY PRN PRN Reason: Constipation Glucose (Glucose Gel 15 Gm Gel..Gram.) 15 gm PO Q15M PRN; Protocol PRN Reason: per Hypoglycemia Standing Ord. Hydroxyzine HCl (Hydroxyzine Hcl 25 Mg Tablet) 25 mg PO BEDTIME PRN PRN Reason: Anxiety Hydroxyzine HCl (Hydroxyzine Hcl 25 Mg Tablet) 25 mg PO BEDTIME PRN PRN Reason: Anxiety Insulin Glargine (Insulin Glargine,Hum.Rec.Anlog 100 Unit/Ml 10 Ml Vial) 12 unit SUBCUT DAILY [facility] Last Admin: 08/27/21 08:52 Dose: 12 unit Documented by: Insulin Human Lispro (Insulin Lispro 100 Unit/Ml 3 Ml Vial) 0 unit SUBCUT QIDACHS [facility]; Protocol Last Admin: 08/27/21 08:53 Dose: 6 unit Documented by: Magnesium Hydroxide (Milk Of Magnesia 30 Ml Oral.Susp) 30 ml PO DAILY PRN PRN Reason: Constipation Metformin HCl (Metformin Hcl 1,000 Mg Tablet) 1,000 mg PO BID [facility] Last Admin: 08/27/21 08:52 Dose: 1,000 mg Documented by: Trazodone HCl (Trazodone Hcl 100 Mg Tablet) 100 mg PO BEDTIME PRN PRN Reason: Insomnia Last Admin: 08/26/21 23:48 Dose: 100 mg Documented by: Allergies Allergies Allergy/AdvReac Type Severity Reaction Status Date / Time No Known Allergies Allergy Verified 08/21/21 18:57 Assessment & Plan Assessment & Plan (1) Bipolar 1 disorder: Status: Acute Code(s): F31.9 - Bipolar disorder, unspecified (2) Seizure disorder: Status: Acute Code(s): G40.909 - Epilepsy, unspecified, not intractable, without status epilepticus Plan Ms. Alejandre is a 56 year-old woman with hx of Bipolar disorder who was brought via EMS to [facility]. She was initially admitted medically for AMS, MRI did not show acute or subacute pathology, although pt does have chronic encephalomalacia of the left hemisphere and mild underlying microangiopathy. Utox was negative. EEG showed right fronto temporal abnormality with tendency for partial seizure disorder. Pt started on cabamazepine for mood and seizure treatment. PLAN 1. Admit to M3, Sect 12, 15 mins checks for safety 2. Continue Carbamazepine 200mg po BID 3. d/c risperidone, start Olanzapine zydis 10mg po BID on 08/27/21 4. Called HCP Randa [phone] no answer 5. Obtain collateral information 6. Aftercare planning. I spent minutes with the patient and/or on the patient floor today, greater than?50% of which was spent counseling/coordinating care. Reason for contiued inpatient stay Substantial Risk for: inability to function
[2021-08-27 11:20] LABS: Glucose, Whole Blood 306 mg/dL (60-115)
[2021-08-27] MEDS: OLANZapine ODT 10 MG TAB.RAPDIS TRANSLINGU ×3 (13:44→21:48)
[2021-08-27] MEDS: carBAMazepine ER 200 MG TAB.ER.12H 400 MG PO (16:36)
[2021-08-27 16:49] LABS: Glucose, Whole Blood 280 mg/dL (60-115)
[2021-08-27 21:41] LABS: Glucose, Whole Blood 285 mg/dL (60-115)
[2021-08-27] MEDS: Atorvastatin Calcium 80 MG TABLET PO (21:48)
[2021-08-27] MEDS: traZODone HCL 100 MG TABLET PO (21:48)
[2021-08-27] MEDS: hydrOXYzine HCL 25 MG TABLET PO (21:48)
[2021-08-27 22:05] VITALS: BP 160/75; PULSE 88; RESP 18; TEMP 36.5; O2SAT 95
--- NOTE | 2021-08-27 22:05 | PC.NURSE ---
Raiza declined the 1000 mg Metformin because she says when she takes more than 1000mg in a day it gives her diarrhea
[2021-08-28 08:03] VITALS: BP 187/100; PULSE 106; RESP 16; TEMP 36.7; O2SAT 96
[2021-08-28] MEDS: OLANZapine ODT 10 MG TAB.RAPDIS TRANSLINGU ×4 (08:04→21:02)
[2021-08-28] MEDS: amLODIPine Besylate 10 MG TABLET PO (08:04)
[2021-08-28] MEDS: metFORMIN HCl 1,000 MG TABLET 1000 MG PO ×2 (08:04→21:02)
[2021-08-28] MEDS: Aspirin Enteric Coated 81 MG TABLET.DR PO (08:04)
[2021-08-28] MEDS: carBAMazepine ER 200 MG TAB.ER.12H PO (08:04)
[2021-08-28 09:11] LABS: Glucose, Whole Blood 239 mg/dL (60-115)
[2021-08-28] MEDS: Insulin Lispro 100 UNIT/ML 3 ML VIAL SUBCUT ×4 (09:16→21:02)
[2021-08-28] MEDS: Insulin Glargine,Hum.rec.anlog 100 UNIT/ML 10 ML VIAL 12 UNIT SUBCUT (09:16)
[2021-08-28 12:32] LABS: Glucose, Whole Blood 205 mg/dL (60-115)
--- NOTE | 2021-08-28 13:36 | P.PNPSI_ITS ---
Subjective Subjective Date of Service: 08/28/21 Reason For Visit: antonio Subjective Notes: Section 7 Interim History: Pt continues to present as intrusive to peers, staff, very irritable when others not listening to mostly rambling. Pt reports she has to leave AMA to see bankruptcy judge. Pt reports paranoia towards her father, blames him for her moral sins. Pt with muslim preoccupation. She denies SI/HI. Grossly disorganized and not able to care for self. Pt informed of filing to petition involuntary psych tx. Per nursing, slept from 10pm to 4am. Yesterday, pt threw water and food to RN when redirected. Pt taking olanzapine and carbamazepine. Medication Compliance: Intermittent Side effects from medications: No Review of Systems Constitutional: Reports weight loss Cardiovascular: Denies chest pain, Denies rapid heart rate and Denies irregular heart rhythm Mental Status Exam Mental Status Exam Narrative: Appearance: thin, short hair, casually groomed, fair hygiene in NAD Behavior:guarded, irritable at times psychomotor: intermittent agitation Speech:mumbles at times, regular rate but hyperverbal, unintelligible, spontaneous Thought process:disorganized, loose associations Thought content:some suspiciousness and mistrust towards father, doctors, looking to get better, some awareness that mentally not doing well and needing help with making decisions Mood: okay Affect: labile SI:denies HI:denies VH/AH:appears internally preoccupied Delusions:suspiciousness Insight/judgment:impaired x 2. Memory/cog: alert, oriented to year, month, not to situation. severely impaired otherwise to meet minimal demands to care for self. Diagnostics Vital Signs (24Hr): Vital Signs - 24 hr 08/27/21 22:05 08/28/21 08:03 Temperature 97.7 F 98.0 F Pulse Rate 88 106 H Respiratory Rate 18 16 Blood Pressure 160/75 H 187/100 H Pulse Oximetry 95 96 BMI result Verdana 4 Body Mass Index Verdana 4 20.8 Verdana 4 Verdana 4 Labs Labs: Laboratory Results - last 48 hr 08/26/21 08/26/21 08/26/21 16:58 22:46 23:43 POC Glucose 308 H 195 H 197 H Estimat Average Glucose Hemoglobin A1c % TSH 08/27/21 08/27/21 08/27/21 07:57 08:29 08:29 POC Glucose 254 H Estimat Average Glucose 232 Hemoglobin A1c % 9.7 TSH 2.02 08/27/21 08/27/21 08/27/21 11:16 16:44 21:12 POC Glucose 306 H 280 H 285 H Estimat Average Glucose Hemoglobin A1c % TSH 08/28/21 08/28/21 09:06 12:26 POC Glucose 239 H 205 H Estimat Average Glucose Hemoglobin A1c % TSH Medications Medications Current Medications Acetaminophen (Acetaminophen 325 Mg Tablet) 650 mg PO Q6H PRN PRN Reason: Headache/Pain Mild Scale (1-3) Al Hydroxide/Mg Hydroxide (Magnesium Hydrox/Alum Hydrox 30 Ml Oral.Susp) 30 ml PO Q6H PRN PRN Reason: Heartburn/Nausea Amlodipine Besylate (Amlodipine Besylate 10 Mg Tablet) 10 mg PO DAILY [facility]; Protocol Last Admin: 08/28/21 08:04 Dose: 10 mg Documented by: Aspirin (Aspirin Enteric Coated 81 Mg Tablet.) 81 mg PO DAILY [facility] Last Admin: 08/28/21 08:04 Dose: 81 mg Documented by: Atorvastatin Calcium (Atorvastatin Calcium 80 Mg Tablet) 80 mg PO BEDTIME [facility] Last Admin: 08/27/21 21:48 Dose: 80 mg Documented by: Carbamazepine (Carbamazepine Er 200 Mg Tab.Er.12h) 200 mg PO DAILY [facility] Last Admin: 08/28/21 08:04 Dose: 200 mg Documented by: Carbamazepine (Carbamazepine Er 200 Mg Tab.Er.12h) 400 mg PO BEDTIME [facility] Last Admin: 08/27/21 16:36 Dose: 400 mg Documented by: Docusate Sodium (Docusate Sodium 100 Mg Capsule) 100 mg PO DAILY PRN PRN Reason: Constipation Glucose (Glucose Gel 15 Gm Gel..Gram.) 15 gm PO Q15M PRN; Protocol PRN Reason: per Hypoglycemia Standing Ord. Hydroxyzine HCl (Hydroxyzine Hcl 25 Mg Tablet) 25 mg PO BEDTIME PRN PRN Reason: Anxiety Last Admin: 08/27/21 21:48 Dose: 25 mg Documented by: Hydroxyzine HCl (Hydroxyzine Hcl 25 Mg Tablet) 25 mg PO BEDTIME PRN PRN Reason: Anxiety Insulin Glargine (Insulin Glargine,Hum.Rec.Anlog 100 Unit/Ml 10 Ml Vial) 12 unit SUBCUT DAILY [facility] Last Admin: 08/28/21 09:16 Dose: 12 unit Documented by: Insulin Human Lispro (Insulin Lispro 100 Unit/Ml 3 Ml Vial) 0 unit SUBCUT QIDACHS [facility]; Protocol Last Admin: 08/28/21 12:45 Dose: 4 unit Documented by: Magnesium Hydroxide (Milk Of Magnesia 30 Ml Oral.Susp) 30 ml PO DAILY PRN PRN Reason: Constipation Metformin HCl (Metformin Hcl 1,000 Mg Tablet) 1,000 mg PO BID [facility] Last Admin: 08/28/21 08:04 Dose: 1,000 mg Documented by: Olanzapine (Olanzapine Odt 10 Mg Tab.Rapdis) 10 mg TRANSLINGU Q6H PRN PRN Reason: agitation Last Admin: 08/27/21 16:37 Dose: 10 mg Documented by: Olanzapine (Olanzapine Odt 10 Mg Tab.Rapdis) 10 mg TRANSLINGU TID [facility] Trazodone HCl (Trazodone Hcl 100 Mg Tablet) 100 mg PO BEDTIME PRN PRN Reason: Insomnia Last Admin: 08/27/21 21:48 Dose: 100 mg Documented by: Allergies Allergies Allergy/AdvReac Type Severity Reaction Status Date / Time No Known Allergies Allergy Verified 08/21/21 18:57 Assessment & Plan Assessment & Plan (1) Bipolar 1 disorder: Status: Acute Code(s): F31.9 - Bipolar disorder, unspecified (2) Seizure disorder: Status: Acute Code(s): G40.909 - Epilepsy, unspecified, not intractable, without status epilepticus Plan Ms. Alejandre is a 56 year-old woman with hx of Bipolar disorder who was brought via EMS to [facility]. She was initially admitted medically for AMS, MRI did not show acute or subacute pathology, although pt does have chronic encephalomalacia of the left hemisphere and mild underlying microangiopathy. Utox was negative. EEG showed right fronto temporal abnormality with tendency for partial seizure disorder. Pt started on cabamazepine for mood and seizure treatment. PLAN 1. Admit to M3, Sect 12, 15 mins checks for safety 2. Increase Carbamazepine 200mg po daily and 400mg po qhs 3. d/c risperidone, Increase Olanzapine zydis 10mg po TID on 08/27/21, prn for ag itation. 4. Called HCP Randa [phone] no answer 5. Obtain collateral information 6. Aftercare planning. I spent minutes with the patient and/or on the patient floor today, greater than?50% of which was spent counseling/coordinating care. Reason for contiued inpatient stay Substantial Risk for: inability to function
[2021-08-28 17:48] LABS: Glucose, Whole Blood 219 mg/dL (60-115)
[2021-08-28 20:30] VITALS: BP 154/74; PULSE 101; TEMP 37.1; O2SAT 97
[2021-08-28 20:41] LABS: Glucose, Whole Blood 208 mg/dL (60-115)
[2021-08-28] MEDS: carBAMazepine ER 200 MG TAB.ER.12H 400 MG PO (21:01)
[2021-08-28] MEDS: Atorvastatin Calcium 80 MG TABLET PO (21:02)
[2021-08-28] MEDS: traZODone HCL 100 MG TABLET PO (21:34)
[2021-08-29 07:00] VITALS: BMI 21.9
[2021-08-29 08:55] VITALS: BP 190/100; PULSE 98; RESP 17; TEMP 36.8; O2SAT 93
[2021-08-29 08:58] LABS: Glucose, Whole Blood 207 mg/dL (60-115)
[2021-08-29] MEDS: OLANZapine ODT 10 MG TAB.RAPDIS TRANSLINGU ×3 (09:06→21:53)
[2021-08-29] MEDS: Aspirin Enteric Coated 81 MG TABLET.DR PO (09:07)
[2021-08-29] MEDS: amLODIPine Besylate 10 MG TABLET PO (09:07)
[2021-08-29] MEDS: carBAMazepine ER 200 MG TAB.ER.12H PO ×2 (09:07→21:54)
[2021-08-29] MEDS: metFORMIN HCl 1,000 MG TABLET 1000 MG PO ×2 (09:07→21:54)
[2021-08-29] MEDS: Insulin Glargine,Hum.rec.anlog 100 UNIT/ML 10 ML VIAL 12 UNIT SUBCUT (09:08)
[2021-08-29] MEDS: Insulin Lispro 100 UNIT/ML 3 ML VIAL SUBCUT ×3 (09:09→22:04)
--- NOTE | 2021-08-29 12:33 | HO.PSYCHPN ---
Subjective Subjective Date of Service: 08/29/21 Reason For Visit: antonio Subjective Notes: Section 7 Interim History: Pt continues to present with disorganized speech, difficult to follow at times. pt reports father accuses ehr of the of her mother. She reports father is reason she is in moral sin. She reports she wants this fiction writer to go to court and tell inspector balance truing that bipolar disorder is not my fall. She asks that this fiction writer open the door and lets her go. When told about the whether and that she is not doing well mentally, pt states okay, I will stay one more day. Pt disheveled, poor hygiene. As we were walking out pt stated that I was criticizing her nails. Medication Compliance: Yes Side effects from medications: No Review of Systems Constitutional: Reports weight loss Cardiovascular: Denies chest pain, Denies rapid heart rate and Denies irregular heart rhythm Mental Status Exam Mental Status Exam Narrative: Appearance: thin, short hair, casually groomed, fair hygiene in NAD Behavior:guarded, irritable at times psychomotor: intermittent agitation Speech:mumbles at times, regular rate but hyperverbal, unintelligible, spontaneous Thought process:disorganized, loose associations Thought content:some suspiciousness and mistrust towards father, doctors, looking to get better, some awareness that mentally not doing well and needing help with making decisions Mood: okay Affect: labile SI:denies HI:denies VH/AH:appears internally preoccupied Delusions:suspiciousness Insight/judgment:impaired x 2. Memory/cog: alert, oriented to year, month, not to situation. severely impaired otherwise to meet minimal demands to care for self. Diagnostics Vital Signs (24Hr): Vital Signs - 24 hr 08/28/21 20:30 08/29/21 08:55 Temperature 98.7 F 98.2 F Pulse Rate 101 H 98 Respiratory Rate 17 Blood Pressure 154/74 H 190/100 H Pulse Oximetry 97 93 BMI result Body Mass Index 21.9 Labs Labs: Laboratory Results - last 48 hr 08/27/21 08/28/21 08/28/21 21:12 09:06 12:26 POC Glucose 285 H 239 H 205 H 08/28/21 08/28/21 08/29/21 17:44 20:36 08:54 POC Glucose 219 H 208 H 207 H 08/29/21 12:47 POC Glucose 141 H Medications Medications Current Medications Acetaminophen (Acetaminophen 325 Mg Tablet) 650 mg PO Q6H PRN PRN Reason: Headache/Pain Mild Scale (1-3) Al Hydroxide/Mg Hydroxide (Magnesium Hydrox/Alum Hydrox 30 Ml Oral.Susp) 30 ml PO Q6H PRN PRN Reason: Heartburn/Nausea Amlodipine Besylate (Amlodipine Besylate 10 Mg Tablet) 10 mg PO DAILY [facility]; Protocol Last Admin: 08/29/21 09:07 Dose: 10 mg Documented by: Aspirin (Aspirin Enteric Coated 81 Mg Tablet.Dr) 81 mg PO DAILY [facility] Last Admin: 08/29/21 09:07 Dose: 81 mg Documented by: Atorvastatin Calcium (Atorvastatin Calcium 80 Mg Tablet) 80 mg PO BEDTIME [facility] Last Admin: 08/28/21 21:02 Dose: 80 mg Documented by: Carbamazepine (Carbamazepine Er 200 Mg Tab.Er.12h) 200 mg PO DAILY [facility] Last Admin: 08/29/21 09:07 Dose: 200 mg Documented by: Carbamazepine (Carbamazepine Er 200 Mg Tab.Er.12h) 400 mg PO BEDTIME [facility] Last Admin: 08/28/21 21:01 Dose: 400 mg Documented by: Docusate Sodium (Docusate Sodium 100 Mg Capsule) 100 mg PO DAILY PRN PRN Reason: Constipation Glucose (Glucose Gel 15 Gm Gel..Gram.) 15 gm PO Q15M PRN; Protocol PRN Reason: per Hypoglycemia Standing Ord. Hydroxyzine HCl (Hydroxyzine Hcl 25 Mg Tablet) 25 mg PO BEDTIME PRN PRN Reason: Anxiety Last Admin: 08/27/21 21:48 Dose: 25 mg Documented by: Hydroxyzine HCl (Hydroxyzine Hcl 25 Mg Tablet) 25 mg PO BEDTIME PRN PRN Reason: Anxiety Insulin Glargine (Insulin Glargine,Hum.Rec.Anlog 100 Unit/Ml 10 Ml Vial) 12 unit SUBCUT DAILY [facility] Last Admin: 08/29/21 09:08 Dose: 12 unit Documented by: Insulin Human Lispro (Insulin Lispro 100 Unit/Ml 3 Ml Vial) 0 unit SUBCUT QIDACHS [facility]; Protocol Last Admin: 08/29/21 12:54 Dose: Not Given Documented by: Magnesium Hydroxide (Milk Of Magnesia 30 Ml Oral.Susp) 30 ml PO DAILY PRN PRN Reason: Constipation Metformin HCl (Metformin Hcl 1,000 Mg Tablet) 1,000 mg PO BID [facility] Last Admin: 08/29/21 09:07 Dose: 1,000 mg Documented by: Olanzapine (Olanzapine Odt 10 Mg Tab.Rapdis) 10 mg TRANSLINGU Q6H PRN PRN Reason: agitation Last Admin: 08/28/21 17:55 Dose: 10 mg Documented by: Olanzapine (Olanzapine Odt 10 Mg Tab.Rapdis) 10 mg TRANSLINGU TID [facility] Last Admin: 08/29/21 15:22 Dose: 10 mg Documented by: Trazodone HCl (Trazodone Hcl 100 Mg Tablet) 100 mg PO BEDTIME PRN PRN Reason: Insomnia Last Admin: 08/28/21 21:34 Dose: 100 mg Documented by: Allergies Allergies Allergy/AdvReac Type Severity Reaction Status Date / Time No Known Allergies Allergy Verified 08/21/21 18:57 Assessment & Plan Assessment & Plan (1) Bipolar 1 disorder: Status: Acute Code(s): F31.9 - Bipolar disorder, unspecified (2) Seizure disorder: Status: Acute Code(s): G40.909 - Epilepsy, unspecified, not intractable, without status epilepticus Plan Ms. Alejandre is a 56 year-old woman with hx of Bipolar disorder who was brought via EMS to [facility] ED. She was initially admitted medically for AMS, MRI did not show acute or subacute pathology, although pt does have chronic encephalomalacia of the left hemisphere and mild underlying microangiopathy. Utox was negative. EEG showed right fronto temporal abnormality with tendency for partial seizure disorder. Pt started on cabamazepine for mood and seizure treatment. PLAN 1. Admit to M3, Sect 12, 15 mins checks for safety 2. Increase Carbamazepine 200mg po daily and 400mg po qhs 3. d/c risperidone, Increase Olanzapine zydis 10mg po TID on 08/27/21, prn for agitation. 4. Called HCP Randa [phone] no answer 5. Obtain collateral information 6. Aftercare planning. I spent minutes with the patient and/or on the patient floor today, greater than?50% of which was spent counseling/coordinating care. Reason for contiued inpatient stay Substantial Risk for: inability to function
[2021-08-29 12:51] LABS: Glucose, Whole Blood 141 mg/dL (60-115)
[2021-08-29 17:49] LABS: Glucose, Whole Blood 241 mg/dL (60-115)
[2021-08-29 18:00] VITALS: BP 167/76; PULSE 97; RESP 18; TEMP 36.3; O2SAT 96
[2021-08-29] MEDS: Atorvastatin Calcium 80 MG TABLET PO (21:54)
[2021-08-29] MEDS: carBAMazepine ER 200 MG TAB.ER.12H 400 MG PO (21:54)
[2021-08-29] MEDS: traZODone HCL 100 MG TABLET PO (22:24)
[2021-08-29 22:39] LABS: Glucose, Whole Blood 301 mg/dL (60-115)
--- NOTE | 2021-08-30 | ECG_ITS ---
Test Reason : palpitation Blood Pressure : / mmHG Vent. Rate : 087 BPM Atrial Rate : 087 BPM P-R Int : 148 ms QRS Dur : 088 ms QT Int : 350 ms P-R-T Axes : 064 025 076 degrees QTc Int : 421 ms Normal sinus rhythm Minimal voltage criteria for LVH, may be normal variant ( Sokolow-Alcazar ) Septal infarct (cited on or before 21-AUG-2021) Abnormal ECG When compared with ECG of 21-AUG-2021 19:21, No significant changes seen Referred By: Meghna Salazar Electronically Signed By:NIMISHA TREVIÑO
[2021-08-30 08:05] VITALS: BP 208/102; PULSE 97; RESP 16; TEMP 36.7; O2SAT 95
[2021-08-30] MEDS: metFORMIN HCl 1,000 MG TABLET 1000 MG PO ×2 (08:30→20:24)
[2021-08-30] MEDS: Aspirin Enteric Coated 81 MG TABLET.DR PO (08:30)
[2021-08-30] MEDS: amLODIPine Besylate 10 MG TABLET PO (08:30)
[2021-08-30] MEDS: cloNIDine HCL 0.1 MG TABLET PO ×2 (08:31→20:24)
[2021-08-30] MEDS: OLANZapine ODT 10 MG TAB.RAPDIS TRANSLINGU ×4 (08:31→20:24)
[2021-08-30] MEDS: carBAMazepine ER 200 MG TAB.ER.12H PO (08:31)
[2021-08-30 09:13] LABS: Glucose, Whole Blood 221 mg/dL (60-115)
[2021-08-30 09:21] LABS: MANUAL DIFF FLAG NO
[2021-08-30] MEDS: Insulin Lispro 100 UNIT/ML 3 ML VIAL SUBCUT ×4 (09:30→20:29)
[2021-08-30] MEDS: Insulin Glargine,Hum.rec.anlog 100 UNIT/ML 10 ML VIAL 12 UNIT SUBCUT (09:30)
[2021-08-30 09:42] LABS: Basophils Percent Auto 0.5 % (0-2); Eosinophils Absolute Auto 0.2 X10*3/uL (0.0-0.4); Hematocrit 39.6 % (37.0-47.0); Hemoglobin 13.3 g/dl (12.0-16.0); Imm Gran Abs Auto 0.02 X10*3/uL (0.00-0.03); Imm Gran Pct Auto 0.2 % (0.0-0.4); Lymphocytes Absolute Auto 2.1 X10*3/uL (1.2-4.9); Lymphocytes Percent Auto 25.2 % (20-40); Mean Corpuscular HGB Conc 33.6 g/dl (31.0-35.0); Mean Corpuscular Hemoglobin 29.9 pg (27.0-33.0); Mean Platelet Volume 10.2 fL (9.4-12.3); Monocytes Absolute Auto 0.5 X10*3/uL (0.1-1.2); Monocytes Percent Auto 5.7 % (2-11); Neutrophils Absolute Auto 5.6 x10*3/uL (2.0-8.3); Neutrophils Percent Auto 66.4 % (45-73); Platelet Count 310 X10*3/uL (160-400); Red Blood Count 4.45 X10*6/uL (4.20-5.50); Red Cell Distribution Width 13.7 % (11.0-16.0); White Blood Count 8.4 X10*3/uL (4.8-10.8)
[2021-08-30 09:58] LABS: Alanine Aminotransferase 32 U/L (0-31); Albumin Level 3.9 g/dL (3.5-5.0); Alkaline Phosphatase 105 U/L (39-117); Anion Gap 10 (12-20); Aspartate Amino Transferase 21 U/L (5-31); Bilirubin Total 0.3 mg/dL (0.0-1.0); Blood Urea Nitrogen 11 mg/dL (9-16); Calcium 9.9 mg/dL (8.4-10.2); Carbon Dioxide 31 mmol/L (22-29); Chloride 101 mmol/L (96-108); Creatinine Clr Calc Pharmacy 82.5; Estimated Glomerular Filt Rate > 60; Glucose Random 229 mg/dL (60-115); Potassium 4.1 mmol/L (3.3-5.1); Sodium 138 mmol/L (135-145); Total Protein 6.3 g/dL (6.5-8.0); Troponin-I High Sensitivity 21.1 ng/L (<3.5-17.0)
[2021-08-30 10:19] VITALS: BP 198/91; PULSE 87; RESP 16
--- NOTE | 2021-08-30 10:19 | HO.PSYCHPN ---
Subjective Subjective Date of Service: 08/30/21 Reason For Visit: antonio Subjective Notes: Section 7 Interim History: Pt hyperverbal, reports she has to leave AMA for housing court and to tell independent freight agent her bipolar disorder is not her fault. She also reports father blames her for of mother. Pt's speech continues to present as disorganized, is difficult to follow what she reports. Pt initially irritable for unclear reasons. Then reports she need help with medications and that her mind is not right. Pt intrusive to peers at times, able to be redirected. SBP>190, on amlodipine, hospitalist consulted as SBP elevated throughout admission despite increase in amlodipine to 10mg po daily. clonidine added for anxiety and BP. EKG and troponins completed, elevated, no change with previous one. Review of Systems Constitutional: Reports weight loss Cardiovascular: Denies chest pain, Denies rapid heart rate and Denies irregular heart rhythm Mental Status Exam Mental Status Exam Narrative: Appearance: thin, short hair, casually groomed, fair hygiene in NAD Behavior:guarded, irritable at times psychomotor: intermittent agitation Speech:mumbles at times, regular rate but hyperverbal, unintelligible, spontaneous Thought process:disorganized, loose associations Thought content:some suspiciousness and mistrust towards father, doctors, looking to get better, some awareness that mentally not doing well and needing help with making decisions Mood: okay Affect: labile SI:denies HI:denies VH/AH:appears internally preoccupied Delusions:suspiciousness Insight/judgment:impaired x 2. Memory/cog: alert, oriented to year, month, not to situation. severely impaired otherwise to meet minimal demands to care for self. Diagnostics Vital Signs (24Hr): Vital Signs - 24 hr 08/29/21 18:00 08/30/21 08:05 08/30/21 10:19 Temperature 97.4 F 98.0 F Pulse Rate 97 97 87 Respiratory Rate 18 16 16 Blood Pressure 167/76 H 208/102 H 198/91 H Pulse Oximetry 96 95 08/30/21 14:07 Temperature Pulse Rate 113 H Respiratory Rate Blood Pressure 146/87 H Pulse Oximetry BMI result Body Mass Index 21.9 Labs Results: 08/30/21 09:06 08/30/21 09:06 Labs: Laboratory Results - last 48 hr 08/28/21 08/29/21 08/29/21 20:36 08:54 12:47 WBC RBC Hgb Hct MCV MCH MCHC RDW Plt Count MPV Immature Gran % (Auto) Neut % (Auto) Lymph % (Auto) [place] % (Auto) Eos % (Auto) Baso % (Auto) Lymph # (Auto) [place] # (Auto) Eos # (Auto) Baso # (Auto) Abs Immat Gran (auto) Absolute Neuts (auto) Absolute Nucleated RBC Nucleated RBC % (auto) Sodium Potassium Chloride Carbon Dioxide Anion Gap BUN Creatinine Estim Creat Clear Calc Estimated GFR POC Glucose 208 H 207 H 141 H Random Glucose Calcium Total Bilirubin AST ALT Alkaline Phosphatase Troponin I High Sens Total Protein Albumin 08/29/21 08/29/21 08/30/21 17:45 21:45 09:06 WBC RBC Hgb Hct MCV MCH MCHC RDW Plt Count MPV Immature Gran % (Auto) Neut % (Auto) Lymph % (Auto) [place] % (Auto) Eos % (Auto) Baso % (Auto) Lymph # (Auto) [place] # (Auto) Eos # (Auto) Baso # (Auto) Abs Immat Gran (auto) Absolute Neuts (auto) Absolute Nucleated RBC Nucleated RBC % (auto) Sodium Potassium Chloride Carbon Dioxide Anion Gap BUN Creatinine Estim Creat Clear Calc Estimated GFR POC Glucose 241 H 301 H Random Glucose Calcium Total Bilirubin AST ALT Alkaline Phosphatase Troponin I High Sens 21.1 H Total Protein Albumin 08/30/21 08/30/21 08/30/21 09:06 09:06 09:08 WBC 8.4 RBC 4.45 Hgb 13.3 Hct 39.6 MCV 89.0 MCH 29.9 MCHC 33.6 RDW 13.7 Plt Count 310 MPV 10.2 Immature Gran % (Auto) 0.2 Neut % (Auto) 66.4 Lymph % (Auto) 25.2 [place] % (Auto) 5.7 Eos % (Auto) 2.0 Baso % (Auto) 0.5 Lymph # (Auto) 2.1 [place] # (Auto) 0.5 Eos # (Auto) 0.2 Baso # (Auto) 0.0 Abs Immat Gran (auto) 0.02 Absolute Neuts (auto) 5.6 Absolute Nucleated RBC 0.000 Nucleated RBC % (auto) 0.0 Sodium 138 Potassium 4.1 D Chloride 101 Carbon Dioxide 31 H Anion Gap 10 L BUN 11 Creatinine 0.65 Estim Creat Clear Calc 82.5 Estimated GFR > 60 POC Glucose 221 H Random Glucose 229 H Calcium 9.9 D Total Bilirubin 0.3 AST 21 ALT 32 H Alkaline Phosphatase 105 Troponin I High Sens Total Protein 6.3 L Albumin 3.9 08/30/21 08/30/21 12:34 16:57 WBC RBC Hgb Hct MCV MCH MCHC RDW Plt Count MPV Immature Gran % (Auto) Neut % (Auto) Lymph % (Auto) [place] % (Auto) Eos % (Auto) Baso % (Auto) Lymph # (Auto) [place] # (Auto) Eos # (Auto) Baso # (Auto) Abs Immat Gran (auto) Absolute Neuts (auto) Absolute Nucleated RBC Nucleated RBC % (auto) Sodium Potassium Chloride Carbon Dioxide Anion Gap BUN Creatinine Estim Creat Clear Calc Estimated GFR POC Glucose 212 H 267 H Random Glucose Calcium Total Bilirubin AST ALT Alkaline Phosphatase Troponin I High Sens Total Protein Albumin Medications Medications Current Medications Acetaminophen (Acetaminophen 325 Mg Tablet) 650 mg PO Q6H PRN PRN Reason: Headache/Pain Mild Scale (1-3) Al Hydroxide/Mg Hydroxide (Magnesium Hydrox/Alum Hydrox 30 Ml Oral.Susp) 30 ml PO Q6H PRN PRN Reason: Heartburn/Nausea Amlodipine Besylate (Amlodipine Besylate 10 Mg Tablet) 10 mg PO DAILY [facility]; Protocol Last Admin: 08/30/21 08:30 Dose: 10 mg Documented by: Aspirin (Aspirin Enteric Coated 81 Mg Tablet.) 81 mg PO DAILY [facility] Last Admin: 08/30/21 08:30 Dose: 81 mg Documented by: Atorvastatin Calcium (Atorvastatin Calcium 80 Mg Tablet) 80 mg PO BEDTIME [facility] Last Admin: 08/29/21 21:54 Dose: 80 mg Documented by: Carbamazepine (Carbamazepine Er 200 Mg Tab.Er.12h) 200 mg PO DAILY [facility] Last Admin: 08/30/21 08:31 Dose: 200 mg Documented by: Carbamazepine (Carbamazepine Er 200 Mg Tab.Er.12h) 400 mg PO BEDTIME [facility] Last Admin: 08/29/21 21:54 Dose: 400 mg Documented by: Clonidine HCl (Clonidine Hcl 0.1 Mg Tablet) 0.1 mg PO BID [facility]; Protocol Last Admin: 08/30/21 08:31 Dose: 0.1 mg Documented by: Docusate Sodium (Docusate Sodium 100 Mg Capsule) 100 mg PO DAILY PRN PRN Reason: Constipation Glucose (Glucose Gel 15 Gm Gel..Gram.) 15 gm PO Q15M PRN; Protocol PRN Reason: per Hypoglycemia Standing Ord. Hydroxyzine HCl (Hydroxyzine Hcl 25 Mg Tablet) 25 mg PO BEDTIME PRN PRN Reason: Anxiety Last Admin: 08/27/21 21:48 Dose: 25 mg Documented by: Hydroxyzine HCl (Hydroxyzine Hcl 25 Mg Tablet) 25 mg PO BEDTIME PRN PRN Reason: Anxiety Insulin Glargine (Insulin Glargine,Hum.Rec.Anlog 100 Unit/Ml 10 Ml Vial) 12 unit SUBCUT DAILY [facility] Last Admin: 08/30/21 09:30 Dose: 12 unit Documented by: Insulin Human Lispro (Insulin Lispro 100 Unit/Ml 3 Ml Vial) 0 unit SUBCUT QIDACHS [facility]; Protocol Last Admin: 08/30/21 17:50 Dose: 6 unit Documented by: Lisinopril (Lisinopril 10 Mg Tablet) 10 mg PO DAILY [facility]; Protocol Last Admin: 08/30/21 14:25 Dose: 10 mg Documented by: Magnesium Hydroxide (Milk Of Magnesia 30 Ml Oral.Susp) 30 ml PO DAILY PRN PRN Reason: Constipation Metformin HCl (Metformin Hcl 1,000 Mg Tablet) 1,000 mg PO BID [facility] Last Admin: 08/30/21 08:30 Dose: 1,000 mg Documented by: Olanzapine (Olanzapine Odt 10 Mg Tab.Rapdis) 10 mg TRANSLINGU Q6H PRN PRN Reason: agitation Last Admin: 08/30/21 16:06 Dose: 10 mg Documented by: Olanzapine (Olanzapine Odt 10 Mg Tab.Rapdis) 10 mg TRANSLINGU TID [facility] Last Admin: 08/30/21 14:25 Dose: 10 mg Documented by: Trazodone HCl (Trazodone Hcl 100 Mg Tablet) 100 mg PO BEDTIME PRN PRN Reason: Insomnia Last Admin: 08/29/21 22:24 Dose: 100 mg Documented by: Allergies Allergies Allergy/AdvReac Type Severity Reaction Status Date / Time No Known Allergies Allergy Verified 08/21/21 18:57 Assessment & Plan Assessment & Plan (1) Bipolar 1 disorder: Status: Acute Code(s): F31.9 - Bipolar disorder, unspecified (2) Seizure disorder: Status: Acute Code(s): G40.909 - Epilepsy, unspecified, not intractable, without status epilepticus Plan Ms. Alejandre is a 56 year-old woman with hx of Bipolar disorder who was brought via EMS to [facility] ED. She was initially admitted medically for AMS, MRI did not show acute or subacute pathology, although pt does have chronic encephalomalacia of the left hemisphere and mild underlying microangiopathy. Utox was negative. EEG showed right fronto temporal abnormality with tendency for partial seizure disorder. Pt started on cabamazepine for mood and seizure treatment. PLAN 1. Admit to M3, Sect 12, 15 mins checks for safety 2. Increase Carbamazepine 200mg po daily and 400mg po qhs 3. d/c risperidone, Continue Olanzapine zydis 10mg po TID on 08/27/21, prn for agitation. 4. Called HCP Randa [phone] no answer 5. Obtain collateral information 6. Aftercare planning. I spent minutes with the patient and/or on the patient floor today, greater than?50% of which was spent counseling/coordinating care. Reason for contiued inpatient stay Substantial Risk for: inability to function
[2021-08-30 12:39] LABS: Glucose, Whole Blood 212 mg/dL (60-115)
--- NOTE | 2021-08-30 13:55 | PM.EVENT ---
Event Note Date of Service: 08/30/21 Event Note: I reviewed the patient's chart and discussed with Meghna, patient is known to us from recent hospitalization, record shows that her blood pressure has been generalaly very high, in other words not well controlled--there could be some component of anxiety.. I suggest increasing Norvasc to 5 and adding Lisinopril 10.. indeterminate troponin is likey from high BP
[2021-08-30 14:07] VITALS: BP 146/87; PULSE 113
[2021-08-30] MEDS: lisinopriL 10 MG TABLET PO (14:25)
[2021-08-30 17:02] LABS: Glucose, Whole Blood 267 mg/dL (60-115)
[2021-08-30 20:14] LABS: Glucose, Whole Blood 190 mg/dL (60-115)
[2021-08-30 20:18] VITALS: BP 113/61; PULSE 98; TEMP 36.6; O2SAT 94
[2021-08-30] MEDS: Atorvastatin Calcium 80 MG TABLET PO (20:24)
[2021-08-30] MEDS: carBAMazepine ER 200 MG TAB.ER.12H 400 MG PO (20:24)
[2021-08-30] MEDS: traZODone HCL 100 MG TABLET PO (21:05)
[2021-08-31 07:45] VITALS: BP 112/70; PULSE 83; RESP 18; TEMP 36.4; O2SAT 97
[2021-08-31 08:05] LABS: Glucose, Whole Blood 193 mg/dL (60-115)
[2021-08-31] MEDS: Insulin Glargine,Hum.rec.anlog 100 UNIT/ML 10 ML VIAL 12 UNIT SUBCUT (08:08)
[2021-08-31] MEDS: Insulin Lispro 100 UNIT/ML 3 ML VIAL SUBCUT ×3 (08:08→21:02)
[2021-08-31] MEDS: amLODIPine Besylate 10 MG TABLET PO (08:09)
[2021-08-31] MEDS: carBAMazepine ER 200 MG TAB.ER.12H PO (08:09)
[2021-08-31] MEDS: lisinopriL 10 MG TABLET PO (08:09)
[2021-08-31] MEDS: OLANZapine ODT 10 MG TAB.RAPDIS TRANSLINGU ×4 (08:09→20:08)
[2021-08-31] MEDS: metFORMIN HCl 1,000 MG TABLET 1000 MG PO (08:09)
[2021-08-31] MEDS: Aspirin Enteric Coated 81 MG TABLET.DR PO (08:09)
[2021-08-31] MEDS: cloNIDine HCL 0.1 MG TABLET PO ×2 (08:09→20:07)
[2021-08-31 12:27] LABS: Glucose, Whole Blood 154 mg/dL (60-115)
[2021-08-31 17:41] LABS: Glucose, Whole Blood 146 mg/dL (60-115)
--- NOTE | 2021-08-31 18:24 | HO.PSYCHPN ---
Subjective Subjective Date of Service: 08/31/21 Reason For Visit: antonio Interim History: 08/30: Pt hyperverbal, reports she has to leave AMA for housing court and to tell art psychotherapist or therapist her bipolar disorder is not her fault. She also reports father blames her for of mother. Pt's speech continues to present as disorganized, is difficult to follow what she reports. Pt initially irritable for unclear reasons. Then reports she need help with medications and that her mind is not right. Pt intrusive to peers at times, able to be redirected. SBP>190, on amlodipine, hospitalist consulted as SBP elevated throughout admission despite increase in amlodipine to 10mg po daily. clonidine added for anxiety and BP. EKG and troponins completed, elevated, no change with previous one. 08/31: Continues to intrusive, manic, hyperverbal. Threatened TW that she will vomit if I dont release her. Speech is POS and difficult to follow. Medication Compliance: Intermittent Side effects from medications: No Review of Systems Acute medical concerns: No Medical Review of Systems: unchanged Review of Systems Constitutional: Reports weight loss Cardiovascular: Denies chest pain, Denies rapid heart rate and Denies irregular heart rhythm Mental Status Exam Mental Status Exam Narrative: Appearance: thin, short hair, casually groomed, fair hygiene in NAD Behavior:guarded, irritable at times psychomotor: intermittent agitation Speech:mumbles at times, regular rate but hyperverbal, unintelligible, spontaneous Thought process:disorganized, loose associations Thought content:some suspiciousness and mistrust towards father, doctors, looking to get better, some awareness that mentally not doing well and needing help with making decisions Mood: okay Affect: labile SI:denies HI:denies VH/AH:appears internally preoccupied Delusions:suspiciousness Insight/judgment:impaired x 2. Memory/cog: alert, oriented to year, month, not to situation. severely impaired otherwise to meet minimal demands to care for self. Patient Appearance: Disheveled Patient Orientation: Place Level of Consciousness: Awake Patient Behavior: Guarded, Talkative and Invasion - Personal Space Affect Description: Suspicious Speech Pattern: Animated and Loud Hallucinations: None Delusions: Being Controlled and Paranoid Ideation Thought Process: Illogical Thought Content: positive for Racing Judgement: Poor Diagnostics Vital Signs (24Hr): Vital Signs - 24 hr 08/30/21 20:18 08/31/21 07:45 Temperature 97.9 F 97.5 F Pulse Rate 98 83 Respiratory Rate 18 Blood Pressure 113/61 112/70 Pulse Oximetry 94 97 BMI result Body Mass Index 21.9 Labs Results: 08/30/21 09:06 08/30/21 09:06 Labs: Laboratory Results - last 48 hr 08/29/21 08/30/21 08/30/21 21:45 09:06 09:06 WBC RBC Hgb Hct MCV MCH MCHC RDW Plt Count MPV Immature Gran % (Auto) Neut % (Auto) Lymph % (Auto) [place] % (Auto) Eos % (Auto) Baso % (Auto) Lymph # (Auto) [place] # (Auto) Eos # (Auto) Baso # (Auto) Abs Immat Gran (auto) Absolute Neuts (auto) Absolute Nucleated RBC Nucleated RBC % (auto) Sodium 138 Potassium 4.1 D Chloride 101 Carbon Dioxide 31 H Anion Gap 10 L BUN 11 Creatinine 0.65 Estim Creat Clear Calc 82.5 Estimated GFR > 60 POC Glucose 301 H Random Glucose 229 H Calcium 9.9 D Total Bilirubin 0.3 AST 21 ALT 32 H Alkaline Phosphatase 105 Troponin I High Sens 21.1 H Total Protein 6.3 L Albumin 3.9 08/30/21 08/30/21 08/30/21 09:06 09:08 12:34 WBC 8.4 RBC 4.45 Hgb 13.3 Hct 39.6 MCV 89.0 MCH 29.9 MCHC 33.6 RDW 13.7 Plt Count 310 MPV 10.2 Immature Gran % (Auto) 0.2 Neut % (Auto) 66.4 Lymph % (Auto) 25.2 [place] % (Auto) 5.7 Eos % (Auto) 2.0 Baso % (Auto) 0.5 Lymph # (Auto) 2.1 [place] # (Auto) 0.5 Eos # (Auto) 0.2 Baso # (Auto) 0.0 Abs Immat Gran (auto) 0.02 Absolute Neuts (auto) 5.6 Absolute Nucleated RBC 0.000 Nucleated RBC % (auto) 0.0 Sodium Potassium Chloride Carbon Dioxide Anion Gap BUN Creatinine Estim Creat Clear Calc Estimated GFR POC Glucose 221 H 212 H Random Glucose Calcium Total Bilirubin AST ALT Alkaline Phosphatase Troponin I High Sens Total Protein Albumin 08/30/21 08/30/21 08/30/21 16:57 18:52 20:10 WBC RBC Hgb Hct MCV MCH MCHC RDW Plt Count MPV Immature Gran % (Auto) Neut % (Auto) Lymph % (Auto) [place] % (Auto) Eos % (Auto) Baso % (Auto) Lymph # (Auto) [place] # (Auto) Eos # (Auto) Baso # (Auto) Abs Immat Gran (auto) Absolute Neuts (auto) Absolute Nucleated RBC Nucleated RBC % (auto) Sodium Potassium Chloride Carbon Dioxide Anion Gap BUN Creatinine Estim Creat Clear Calc Estimated GFR POC Glucose 267 H 190 H Random Glucose Calcium Total Bilirubin AST ALT Alkaline Phosphatase Troponin I High Sens 22.0 H Total Protein Albumin 08/31/21 08/31/21 08/31/21 07:55 12:23 17:35 WBC RBC Hgb Hct MCV MCH MCHC RDW Plt Count MPV Immature Gran % (Auto) Neut % (Auto) Lymph % (Auto) [place] % (Auto) Eos % (Auto) Baso % (Auto) Lymph # (Auto) [place] # (Auto) Eos # (Auto) Baso # (Auto) Abs Immat Gran (auto) Absolute Neuts (auto) Absolute Nucleated RBC Nucleated RBC % (auto) Sodium Potassium Chloride Carbon Dioxide Anion Gap BUN Creatinine Estim Creat Clear Calc Estimated GFR POC Glucose 193 H 154 H 146 H Random Glucose Calcium Total Bilirubin AST ALT Alkaline Phosphatase Troponin I High Sens Total Protein Albumin Medications Medications Current Medications Acetaminophen (Acetaminophen 325 Mg Tablet) 650 mg PO Q6H PRN PRN Reason: Headache/Pain Mild Scale (1-3) Al Hydroxide/Mg Hydroxide (Magnesium Hydrox/Alum Hydrox 30 Ml Oral.Susp) 30 ml PO Q6H PRN PRN Reason: Heartburn/Nausea Amlodipine Besylate (Amlodipine Besylate 10 Mg Tablet) 10 mg PO DAILY [facility]; Protocol Last Admin: 08/31/21 08:09 Dose: 10 mg Documented by: Aspirin (Aspirin Enteric Coated 81 Mg Tablet.) 81 mg PO DAILY [facility] Last Admin: 08/31/21 08:09 Dose: 81 mg Documented by: Atorvastatin Calcium (Atorvastatin Calcium 80 Mg Tablet) 80 mg PO BEDTIME [facility] Last Admin: 08/30/21 20:24 Dose: 80 mg Documented by: Carbamazepine (Carbamazepine Er 200 Mg Tab.Er.12h) 200 mg PO DAILY [facility] Last Admin: 08/31/21 08:09 Dose: 200 mg Documented by: Carbamazepine (Carbamazepine Er 200 Mg Tab.Er.12h) 400 mg PO BEDTIME [facility] Last Admin: 08/30/21 20:24 Dose: 400 mg Documented by: Clonidine HCl (Clonidine Hcl 0.1 Mg Tablet) 0.1 mg PO BID [facility]; Protocol Last Admin: 08/31/21 08:09 Dose: 0.1 mg Documented by: Docusate Sodium (Docusate Sodium 100 Mg Capsule) 100 mg PO DAILY PRN PRN Reason: Constipation Glucose (Glucose Gel 15 Gm Gel..Gram.) 15 gm PO Q15M PRN; Protocol PRN Reason: per Hypoglycemia Standing Ord. Hydroxyzine HCl (Hydroxyzine Hcl 25 Mg Tablet) 25 mg PO BEDTIME PRN PRN Reason: Anxiety Last Admin: 08/27/21 21:48 Dose: 25 mg Documented by: Hydroxyzine HCl (Hydroxyzine Hcl 25 Mg Tablet) 25 mg PO BEDTIME PRN PRN Reason: Anxiety Insulin Glargine (Insulin Glargine,Hum.Rec.Anlog 100 Unit/Ml 10 Ml Vial) 12 unit SUBCUT DAILY [facility] Last Admin: 08/31/21 08:08 Dose: 12 unit Documented by: Insulin Human Lispro (Insulin Lispro 100 Unit/Ml 3 Ml Vial) 0 unit SUBCUT QIDACHS [facility]; Protocol Last Admin: 08/31/21 17:50 Dose: Not Given Documented by: Lisinopril (Lisinopril 10 Mg Tablet) 10 mg PO DAILY [facility]; Protocol Last Admin: 08/31/21 08:09 Dose: 10 mg Documented by: Magnesium Hydroxide (Milk Of Magnesia 30 Ml Oral.Susp) 30 ml PO DAILY PRN PRN Reason: Constipation Metformin HCl (Metformin Hcl 1,000 Mg Tablet) 1,000 mg PO BID [facility] Last Admin: 08/31/21 08:09 Dose: 1,000 mg Documented by: Olanzapine (Olanzapine Odt 10 Mg Tab.Rapdis) 10 mg TRANSLINGU Q6H PRN PRN Reason: agitation Last Admin: 08/31/21 11:06 Dose: 10 mg Documented by: Olanzapine (Olanzapine Odt 10 Mg Tab.Rapdis) 10 mg TRANSLINGU TID [facility] Last Admin: 08/31/21 14:53 Dose: 10 mg Documented by: Trazodone HCl (Trazodone Hcl 100 Mg Tablet) 100 mg PO BEDTIME PRN PRN Reason: Insomnia Last Admin: 08/30/21 21:05 Dose: 100 mg Documented by: Allergies Allergies Allergy/AdvReac Type Severity Reaction Status Date / Time No Known Allergies Allergy Verified 08/21/21 18:57 Assessment & Plan Assessment & Plan (1) Bipolar 1 disorder: Status: Acute Code(s): F31.9 - Bipolar disorder, unspecified (2) Seizure disorder: Status: Acute Code(s): G40.909 - Epilepsy, unspecified, not intractable, without status epilepticus Plan Ms. Alejandre is a 56 year-old woman with hx of Bipolar disorder who was brought via EMS [place] [facility]. She was initially admitted medically for AMS, MRI did not show acute or subacute pathology, although pt does have chronic encephalomalacia of the left hemisphere and mild underlying microangiopathy. Utox was negative. EEG showed right fronto temporal abnormality with tendency for partial seizure disorder. Pt started on cabamazepine for mood and seizure treatment. PLAN 1. Admit to M3, Sect 12, 15 mins checks for safety 2. Increase Carbamazepine 200mg po daily and 400mg po qhs 3. d/c risperidone, Continue Olanzapine zydis 10mg po TID on 08/27/21, prn for agitation. 4. Called HCP Randa [phone] no answer 5. Obtain collateral information 6. Aftercare planning. 08/31: Ct plan. No med changes I spent minutes with the patient and/or on the patient floor today, greater than?50% of which was spent counseling/coordinating care. Reason for contiued inpatient stay Substantial Risk for: rapid decompensation
[2021-08-31 19:57] VITALS: BP 166/78; PULSE 94; RESP 17; TEMP 36.4; O2SAT 94
[2021-08-31] MEDS: carBAMazepine ER 200 MG TAB.ER.12H 400 MG PO (20:06)
[2021-08-31] MEDS: Atorvastatin Calcium 80 MG TABLET PO (20:08)
[2021-08-31 21:00] LABS: Glucose, Whole Blood 213 mg/dL (60-115)
[2021-08-31] MEDS: traZODone HCL 100 MG TABLET PO (22:04)
--- NOTE | 2021-09-01 04:31 | HO.PSYCHPN ---
Subjective Subjective Date of Service: 09/01/21 Reason For Visit: antonio Interim History: 08/30: Pt hyperverbal, reports she has to leave AMA for housing court and to tell customer program manager her bipolar disorder is not her fault. She also reports father blames her for of mother. Pt's speech continues to present as disorganized, is difficult to follow what she reports. Pt initially irritable for unclear reasons. Then reports she need help with medications and that her mind is not right. Pt intrusive to peers at times, able to be redirected. SBP>190, on amlodipine, hospitalist consulted as SBP elevated throughout admission despite increase in amlodipine to 10mg po daily. clonidine added for anxiety and BP. EKG and troponins completed, elevated, no change with previous one. 08/31: Continues to intrusive, manic, hyperverbal. Threatened TW that she will vomit if I dont release her. Speech is POS and difficult to follow. 09/01: Much improved in past 24 hours. Has been med compliant with CBZ and OLZ. Today feels stable, less labile, remembered nightmares, worried about homelessness. Medication Compliance: Yes Side effects from medications: No Review of Systems Constitutional: Reports weight loss Cardiovascular: Denies chest pain, Denies rapid heart rate and Denies irregular heart rhythm Mental Status Exam Mental Status Exam Narrative: Appearance: thin, short hair, casually groomed, fair hygiene in NAD Behavior:guarded, irritable at times psychomotor: intermittent agitation Speech:mumbles at times, regular rate but hyperverbal, unintelligible, spontaneous Thought process:disorganized, loose associations Thought content:some suspiciousness and mistrust towards father, doctors, looking to get better, some awareness that mentally not doing well and needing help with making decisions Mood: okay Affect: labile SI:denies HI:denies VH/AH:appears internally preoccupied Delusions:suspiciousness Insight/judgment:impaired x 2. Memory/cog: alert, oriented to year, month, not to situation. severely impaired otherwise to meet minimal demands to care for self. Patient Appearance: Disheveled Patient Orientation: Place Level of Consciousness: Awake Patient Behavior: Guarded, Talkative and Invasion - Personal Space Affect Description: Suspicious Speech Pattern: Animated and Loud Diagnostics Vital Signs (24Hr): Vital Signs - 24 hr 08/31/21 07:45 08/31/21 19:57 Temperature 97.5 F 97.6 F Pulse Rate 83 94 Respiratory Rate 18 17 Blood Pressure 112/70 166/78 H Pulse Oximetry 97 94 BMI result Body Mass Index 21.9 Labs Results: 08/30/21 09:06 08/30/21 09:06 Labs: Laboratory Results - last 48 hr 08/30/21 08/30/21 08/30/21 09:06 09:06 09:06 WBC 8.4 RBC 4.45 Hgb 13.3 Hct 39.6 MCV 89.0 MCH 29.9 MCHC 33.6 RDW 13.7 Plt Count 310 MPV 10.2 Immature Gran % (Auto) 0.2 Neut % (Auto) 66.4 Lymph % (Auto) 25.2 [place] % (Auto) 5.7 Eos % (Auto) 2.0 Baso % (Auto) 0.5 Lymph # (Auto) 2.1 [place] # (Auto) 0.5 Eos # (Auto) 0.2 Baso # (Auto) 0.0 Abs Immat Gran (auto) 0.02 Absolute Neuts (auto) 5.6 Absolute Nucleated RBC 0.000 Nucleated RBC % (auto) 0.0 Sodium 138 Potassium 4.1 D Chloride 101 Carbon Dioxide 31 H Anion Gap 10 L BUN 11 Creatinine 0.65 Estim Creat Clear Calc 82.5 Estimated GFR > 60 POC Glucose Random Glucose 229 H Calcium 9.9 D Total Bilirubin 0.3 AST 21 ALT 32 H Alkaline Phosphatase 105 Troponin I High Sens 21.1 H Total Protein 6.3 L Albumin 3.9 08/30/21 08/30/21 08/30/21 09:08 12:34 16:57 WBC RBC Hgb Hct MCV MCH MCHC RDW Plt Count MPV Immature Gran % (Auto) Neut % (Auto) Lymph % (Auto) [place] % (Auto) Eos % (Auto) Baso % (Auto) Lymph # (Auto) [place] # (Auto) Eos # (Auto) Baso # (Auto) Abs Immat Gran (auto) Absolute Neuts (auto) Absolute Nucleated RBC Nucleated RBC % (auto) Sodium Potassium Chloride Carbon Dioxide Anion Gap BUN Creatinine Estim Creat Clear Calc Estimated GFR POC Glucose 221 H 212 H 267 H Random Glucose Calcium Total Bilirubin AST ALT Alkaline Phosphatase Troponin I High Sens Total Protein Albumin 08/30/21 08/30/21 08/31/21 18:52 20:10 07:55 WBC RBC Hgb Hct MCV MCH MCHC RDW Plt Count MPV Immature Gran % (Auto) Neut % (Auto) Lymph % (Auto) [place] % (Auto) Eos % (Auto) Baso % (Auto) Lymph # (Auto) [place] # (Auto) Eos # (Auto) Baso # (Auto) Abs Immat Gran (auto) Absolute Neuts (auto) Absolute Nucleated RBC Nucleated RBC % (auto) Sodium Potassium Chloride Carbon Dioxide Anion Gap BUN Creatinine Estim Creat Clear Calc Estimated GFR POC Glucose 190 H 193 H Random Glucose Calcium Total Bilirubin AST ALT Alkaline Phosphatase Troponin I High Sens 22.0 H Total Protein Albumin 08/31/21 08/31/21 08/31/21 12:23 17:35 20:56 WBC RBC Hgb Hct MCV MCH MCHC RDW Plt Count MPV Immature Gran % (Auto) Neut % (Auto) Lymph % (Auto) [place] % (Auto) Eos % (Auto) Baso % (Auto) Lymph # (Auto) [place] # (Auto) Eos # (Auto) Baso # (Auto) Abs Immat Gran (auto) Absolute Neuts (auto) Absolute Nucleated RBC Nucleated RBC % (auto) Sodium Potassium Chloride Carbon Dioxide Anion Gap BUN Creatinine Estim Creat Clear Calc Estimated GFR POC Glucose 154 H 146 H 213 H Random Glucose Calcium Total Bilirubin AST ALT Alkaline Phosphatase Troponin I High Sens Total Protein Albumin Medications Medications Current Medications Acetaminophen (Acetaminophen 325 Mg Tablet) 650 mg PO Q6H PRN PRN Reason: Headache/Pain Mild Scale (1-3) Al Hydroxide/Mg Hydroxide (Magnesium Hydrox/Alum Hydrox 30 Ml Oral.Susp) 30 ml PO Q6H PRN PRN Reason: Heartburn/Nausea Amlodipine Besylate (Amlodipine Besylate 10 Mg Tablet) 10 mg PO DAILY [facility] 234 BEDS AT THE [facility]; Protocol Last Admin: 08/31/21 08:09 Dose: 10 mg Documented by: Aspirin (Aspirin Enteric Coated 81 Mg Tablet.) 81 mg PO DAILY [facility]S [facility]CLUDE 234 BEDS AT THE [facility] Last Admin: 08/31/21 08:09 Dose: 81 mg Documented by: Atorvastatin Calcium (Atorvastatin Calcium 80 Mg Tablet) 80 mg PO BEDTIME COUNTS INCLUDE 234 BEDS AT THE [facility] Last Admin: 08/31/21 20:08 Dose: 80 mg Documented by: Carbamazepine (Carbamazepine Er 200 Mg Tab.Er.12h) 200 mg PO DAILY [facility]S INCLUDE 234 BEDS AT THE [facility] Last Admin: 08/31/21 08:09 Dose: 200 mg Documented by: Carbamazepine (Carbamazepine Er 200 Mg Tab.Er.12h) 400 mg PO BEDTIME COUNTS INCLUDE 234 BEDS AT THE [facility] Last Admin: 08/31/21 20:06 Dose: 400 mg Documented by: Clonidine HCl (Clonidine Hcl 0.1 Mg Tablet) 0.1 mg PO BID [facility]S INCLUDE 234 BEDS AT THE [facility]; Protocol Last Admin: 08/31/21 20:07 Dose: 0.1 mg Documented by: Docusate Sodium (Docusate Sodium 100 Mg Capsule) 100 mg PO DAILY PRN PRN Reason: Constipation Glucose (Glucose Gel 15 Gm Gel..Gram.) 15 gm PO Q15M PRN; Protocol PRN Reason: per Hypoglycemia Standing Ord. Hydroxyzine HCl (Hydroxyzine Hcl 25 Mg Tablet) 25 mg PO BEDTIME PRN PRN Reason: Anxiety Last Admin: 08/27/21 21:48 Dose: 25 mg Documented by: Hydroxyzine HCl (Hydroxyzine Hcl 25 Mg Tablet) 25 mg PO BEDTIME PRN PRN Reason: Anxiety Insulin Glargine (Insulin Glargine,Hum.Rec.Anlog 100 Unit/Ml 10 Ml Vial) 12 unit SUBCUT DAILY [facility]S [facility]CLUDE 234 BEDS AT THE [facility] Last Admin: 08/31/21 08:08 Dose: 12 unit Documented by: Insulin Human Lispro (Insulin Lispro 100 Unit/Ml 3 Ml Vial) 0 unit SUBCUT QIDACHS COUNTS INCLUDE 234 BEDS AT THE [facility]; Protocol Last Admin: 08/31/21 21:02 Dose: 4 unit Documented by: Lisinopril (Lisinopril 10 Mg Tablet) 10 mg PO DAILY [facility]CLUDE 234 BEDS AT THE [facility]; Protocol Last Admin: 08/31/21 08:09 Dose: 10 mg Documented by: Magnesium Hydroxide (Milk Of Magnesia 30 Ml Oral.Susp) 30 ml PO DAILY PRN PRN Reason: Constipation Metformin HCl (Metformin Hcl 1,000 Mg Tablet) 1,000 mg PO BID COUNTS INCLUDE 234 BEDS AT THE [facility] Last Admin: 08/31/21 20:08 Dose: Not Given Documented by: Olanzapine (Olanzapine Odt 10 Mg Tab.Rapdis) 10 mg TRANSLINGU Q6H PRN PRN Reason: agitation Last Admin: 08/31/21 11:06 Dose: 10 mg Documented by: Olanzapine (Olanzapine Odt 10 Mg Tab.Rapdis) 10 mg TRANSLINGU TID COUNTS INCLUDE 234 BEDS AT THE [facility] Last Admin: 08/31/21 20:08 Dose: 10 mg Documented by: Trazodone HCl (Trazodone Hcl 100 Mg Tablet) 100 mg PO BEDTIME PRN PRN Reason: Insomnia Last Admin: 08/31/21 22:04 Dose: 100 mg Documented by: Allergies Allergies Allergy/AdvReac Type Severity Reaction Status Date / Time No Known Allergies Allergy Verified 08/21/21 18:57 Assessment & Plan Assessment & Plan (1) Bipolar 1 disorder: Status: Acute Code(s): F31.9 - Bipolar disorder, unspecified (2) Seizure disorder: Status: Acute Code(s): G40.909 - Epilepsy, unspecified, not intractable, without status epilepticus Plan Ms. Alejandre is a 56 year-old woman with hx of Bipolar disorder who was brought via EMS to [facility]. She was initially admitted medically for AMS, MRI did not show acute or subacute pathology, although pt does have chronic encephalomalacia of the left hemisphere and mild underlying microangiopathy. Utox was negative. EEG showed right fronto temporal abnormality with tendency for partial seizure disorder. Pt started on cabamazepine for mood and seizure treatment. PLAN 1. Admit to M3, Sect 12, 15 mins checks for safety 2. Increase Carbamazepine 200mg po daily and 400mg po qhs 3. d/c risperidone, Continue Olanzapine zydis 10mg po TID on 08/27/21, prn for agitation. 4. Called HCP Randa [phone] no answer 5. Obtain collateral information 6. Aftercare planning. 08/31: Ct plan. No med changes I spent minutes with the patient and/or on the patient floor today, greater than?50% of which was spent counseling/coordinating care. Reason for contiued inpatient stay Substantial Risk for: rapid decompensation
[2021-09-01 07:51] LABS: Glucose, Whole Blood 228 mg/dL (60-115)
[2021-09-01 07:55] VITALS: BP 144/66; PULSE 86; RESP 16; TEMP 36.8; O2SAT 96
[2021-09-01] MEDS: Insulin Lispro 100 UNIT/ML 3 ML VIAL SUBCUT ×4 (08:00→21:08)
[2021-09-01] MEDS: Insulin Glargine,Hum.rec.anlog 100 UNIT/ML 10 ML VIAL 12 UNIT SUBCUT (08:00)
[2021-09-01] MEDS: amLODIPine Besylate 10 MG TABLET PO (08:01)
[2021-09-01] MEDS: cloNIDine HCL 0.1 MG TABLET PO ×2 (08:01→21:06)
[2021-09-01] MEDS: lisinopriL 10 MG TABLET PO (08:01)
[2021-09-01] MEDS: Aspirin Enteric Coated 81 MG TABLET.DR PO (08:01)
[2021-09-01] MEDS: OLANZapine ODT 10 MG TAB.RAPDIS TRANSLINGU ×4 (08:01→21:07)
[2021-09-01] MEDS: carBAMazepine ER 200 MG TAB.ER.12H PO (08:01)
[2021-09-01] MEDS: metFORMIN HCl 1,000 MG TABLET 1000 MG PO (08:02)
[2021-09-01 12:09] LABS: Glucose, Whole Blood 153 mg/dL (60-115)
[2021-09-01] MEDS: Acetaminophen 325 MG TABLET 650 MG PO (15:58)
[2021-09-01] MEDS: Magnesium Hydrox/Alum Hydrox 30 ML ORAL.SUSP PO ×2 (16:14→22:27)
[2021-09-01 17:30] LABS: Glucose, Whole Blood 183 mg/dL (60-115)
[2021-09-01 18:00] VITALS: BP 136/80; PULSE 103; RESP 18; TEMP 36.6; O2SAT 96
[2021-09-01 20:56] LABS: Glucose, Whole Blood 276 mg/dL (60-115)
[2021-09-01] MEDS: Atorvastatin Calcium 80 MG TABLET PO (21:05)
[2021-09-01] MEDS: carBAMazepine ER 200 MG TAB.ER.12H 400 MG PO (21:06)
[2021-09-02 08:48] LABS: Glucose, Whole Blood 231 mg/dL (60-115)
[2021-09-02 08:57] VITALS: BP 142/85; PULSE 91; RESP 17; TEMP 36.8; O2SAT 97
[2021-09-02] MEDS: Insulin Lispro 100 UNIT/ML 3 ML VIAL SUBCUT ×4 (09:06→21:08)
[2021-09-02] MEDS: amLODIPine Besylate 10 MG TABLET PO (09:07)
[2021-09-02] MEDS: OLANZapine ODT 10 MG TAB.RAPDIS TRANSLINGU ×3 (09:07→21:08)
[2021-09-02] MEDS: Insulin Glargine,Hum.rec.anlog 100 UNIT/ML 10 ML VIAL 12 UNIT SUBCUT (09:07)
[2021-09-02 09:08] LABS: Alanine Aminotransferase 47 U/L (0-31); Albumin Level 3.9 g/dL (3.5-5.0); Alkaline Phosphatase 114 U/L (39-117); Aspartate Amino Transferase 26 U/L (5-31); Bilirubin Direct < 0.2 mg/dL (0.0-0.5); Bilirubin Total 0.3 mg/dL (0.0-1.0); Total Protein 5.9 g/dL (6.5-8.0)
[2021-09-02] MEDS: lisinopriL 10 MG TABLET PO (09:08)
[2021-09-02] MEDS: Aspirin Enteric Coated 81 MG TABLET.DR PO (09:08)
[2021-09-02] MEDS: cloNIDine HCL 0.1 MG TABLET PO ×2 (09:08→21:08)
[2021-09-02] MEDS: metFORMIN HCl 1,000 MG TABLET 1000 MG PO (09:08)
[2021-09-02] MEDS: carBAMazepine ER 200 MG TAB.ER.12H PO (09:08)
[2021-09-02 09:39] LABS: Carbamazepine Tegretol 9.4 mcg/mL (5.0-12.0)
[2021-09-02 12:43] LABS: Glucose, Whole Blood 236 mg/dL (60-115)
--- NOTE | 2021-09-02 16:00 | HO.PSYCHPN ---
Subjective Subjective Date of Service: 09/02/21 Reason For Visit: antonio Subjective Notes: Section 7 Interim History: Pt more organized thought process. She has some insight in that psych medications helping her. She reports less anxious mood. She denies depressed mood. This insurance writer commented on pt not presenting as labile and irritable. However, pt with significant difficulty telling this insurance writer where exactly she lives. She describes it is like a [facility] violence but she is not sure how long she can be there. She continues to report some problems with refrigerator...unclear what this is about. I do suspect pt has underlying cognitive impairments affecting her ability to care for self in addition to long hx of bipolar. Pt reports she has been trying to contact sister, which this insurance writer and BAKARI Ocampo has been trying as well but no one has accurate phone numbers and pt can't remember. This insurance writer informed pt that we can assist with making sure she has supports in community, somehow, pt very suspicious of this offering stating, she would figure it out on her own. She reports she does not want to stay in hospital any longer. Medication Compliance: Yes Side effects from medications: No Review of Systems Constitutional: Reports weight loss Cardiovascular: Denies chest pain, Denies rapid heart rate and Denies irregular heart rhythm Mental Status Exam Mental Status Exam Narrative: Appearance: thin, short hair, casually groomed, fair hygiene in NAD Behavior:much calmer, somewhat guarded and mildly irritated with this insurance writer at times psychomotor: no agitation Speech:more clear, less hyperverbal, spontaneous Thought process:more organized but some loose association still present Thought content:some suspiciousness and mistrust towards father, doctors, looking to get better, some awareness that mentally not doing well and needing help with making decisions Mood: okay Affect: less labile SI:denies HI:denies VH/AH:none Delusions:less suspiciousness Insight/judgment:impaired x 2. Memory/cog: alert, oriented to year, month, not to situation. severely impaired otherwise to meet minimal demands to care for self. may do MOCA once psychiatrically more stable as suspect underlying neurocognitive disorder. Patient Appearance: Disheveled Patient Orientation: Place Level of Consciousness: Awake Patient Behavior: Guarded, Talkative and Invasion - Personal Space Affect Description: Suspicious Speech Pattern: Animated and Loud Diagnostics Vital Signs (24Hr): Vital Signs - 24 hr 09/02/21 21:00 09/03/21 08:56 Temperature 98 F 98.1 F Pulse Rate 98 88 Respiratory Rate 16 16 Blood Pressure 119/58 L 138/72 Pulse Oximetry 96 95 BMI result Body Mass Index 21.9 Labs Results: 08/30/21 09:06 08/30/21 09:06 Labs: Laboratory Results - last 48 hr 09/01/21 09/01/21 09/02/21 17:24 20:52 08:18 POC Glucose 183 H 276 H Total Bilirubin 0.3 Direct Bilirubin < 0.2 AST 26 ALT 47 H Alkaline Phosphatase 114 Total Protein 5.9 L Albumin 3.9 Carbamazepine 9.4 09/02/21 09/02/21 09/02/21 08:42 12:38 17:46 POC Glucose 231 H 236 H 167 H Total Bilirubin Direct Bilirubin AST ALT Alkaline Phosphatase Total Protein Albumin Carbamazepine 09/02/21 09/03/21 09/03/21 20:56 08:49 12:31 POC Glucose 217 H 328 H 154 H Total Bilirubin Direct Bilirubin AST ALT Alkaline Phosphatase Total Protein Albumin Carbamazepine Medications Medications Current Medications Acetaminophen (Acetaminophen 325 Mg Tablet) 650 mg PO Q6H PRN PRN Reason: Headache/Pain Mild Scale (1-3) Last Admin: 09/01/21 15:58 Dose: 650 mg Documented by: Al Hydroxide/Mg Hydroxide (Magnesium Hydrox/Alum Hydrox 30 Ml Oral.Susp) 30 ml PO Q6H PRN PRN Reason: Heartburn/Nausea Last Admin: 09/01/21 22:27 Dose: 30 ml Documented by: Amlodipine Besylate (Amlodipine Besylate 10 Mg Tablet) 10 mg PO DAILY [facility]; Protocol Last Admin: 09/03/21 09:06 Dose: 10 mg Documented by: Aspirin (Aspirin Enteric Coated 81 Mg Tablet.) 81 mg PO DAILY [facility] Last Admin: 09/03/21 09:07 Dose: 81 mg Documented by: Atorvastatin Calcium (Atorvastatin Calcium 80 Mg Tablet) 80 mg PO BEDTIME [facility] Last Admin: 09/02/21 21:08 Dose: 80 mg Documented by: Carbamazepine (Carbamazepine Er 200 Mg Tab.Er.12h) 200 mg PO DAILY [facility] Last Admin: 09/03/21 09:07 Dose: 200 mg Documented by: Carbamazepine (Carbamazepine Er 200 Mg Tab.Er.12h) 400 mg PO BEDTIME [facility] Last Admin: 09/02/21 21:08 Dose: 400 mg Documented by: Clonidine HCl (Clonidine Hcl 0.1 Mg Tablet) 0.1 mg PO BID [facility]; Protocol Last Admin: 09/03/21 09:08 Dose: 0.1 mg Documented by: Docusate Sodium (Docusate Sodium 100 Mg Capsule) 100 mg PO DAILY PRN PRN Reason: Constipation Glucose (Glucose Gel 15 Gm Gel..Gram.) 15 gm PO Q15M PRN; Protocol PRN Reason: per Hypoglycemia Standing Ord. Hydroxyzine HCl (Hydroxyzine Hcl 25 Mg Tablet) 25 mg PO BEDTIME PRN PRN Reason: Anxiety Last Admin: 08/27/21 21:48 Dose: 25 mg Documented by: Hydroxyzine HCl (Hydroxyzine Hcl 25 Mg Tablet) 25 mg PO BEDTIME PRN PRN Reason: Anxiety Insulin Glargine (Insulin Glargine,Hum.Rec.Anlog 100 Unit/Ml 10 Ml Vial) 12 unit SUBCUT DAILY [facility] Last Admin: 09/03/21 09:08 Dose: 12 unit Documented by: Insulin Human Lispro (Insulin Lispro 100 Unit/Ml 3 Ml Vial) 0 unit SUBCUT QIDACHS [facility]; Protocol Last Admin: 09/03/21 12:53 Dose: 2 unit Documented by: Lisinopril (Lisinopril 10 Mg Tablet) 10 mg PO DAILY [facility]; Protocol Last Admin: 09/03/21 09:07 Dose: 10 mg Documented by: Magnesium Hydroxide (Milk Of Magnesia 30 Ml Oral.Susp) 30 ml PO DAILY PRN PRN Reason: Constipation Last Admin: 09/02/21 17:57 Dose: 30 ml Documented by: Metformin HCl (Metformin Hcl 1,000 Mg Tablet) 1,000 mg PO BID [facility] Last Admin: 09/03/21 09:07 Dose: 1,000 mg Documented by: Olanzapine (Olanzapine Odt 10 Mg Tab.Rapdis) 10 mg TRANSLINGU Q6H PRN PRN Reason: agitation Last Admin: 09/03/21 11:07 Dose: 10 mg Documented by: Olanzapine (Olanzapine Odt 10 Mg Tab.Rapdis) 10 mg TRANSLINGU TID [facility] Last Admin: 09/03/21 15:17 Dose: 10 mg Documented by: Trazodone HCl (Trazodone Hcl 100 Mg Tablet) 100 mg PO BEDTIME PRN PRN Reason: Insomnia Last Admin: 09/02/21 21:31 Dose: 100 mg Documented by: Allergies Allergies Allergy/AdvReac Type Severity Reaction Status Date / Time No Known Allergies Allergy Verified 08/21/21 18:57 Assessment & Plan Assessment & Plan (1) Bipolar 1 disorder: Status: Acute Code(s): F31.9 - Bipolar disorder, unspecified (2) Seizure disorder: Code(s): G40.909 - Epilepsy, unspecified, not intractable, without status epilepticus Plan Ms. Alejandre is a 56 year-old woman with hx of Bipolar disorder who was brought via EMS to [facility] ED. She was initially admitted medically for AMS, MRI did not show acute or subacute pathology, although pt does have chronic encephalomalacia of the left hemisphere and mild underlying microangiopathy. Utox was negative. EEG showed right fronto temporal abnormality with tendency for partial seizure disorder. Pt started on cabamazepine for mood and seizure treatment. PLAN 1. Admit to M3, Sect 12, 15 mins checks for safety 2. Continue Carbamazepine 200mg po daily and 400mg po qhs 3. Continue Olanzapine zydis 10mg po TID on 08/27/21, prn for agitation. 4. Called HCP Randa [phone] no answer - still we have not reach out to any family members 5. Obtain collateral information 6. Aftercare planning. 08/31: Ct plan. No med changes I spent minutes with the patient and/or on the patient floor today, greater than?50% of which was spent counseling/coordinating care. Reason for contiued inpatient stay Substantial Risk for: inability to function
[2021-09-02 17:54] LABS: Glucose, Whole Blood 167 mg/dL (60-115)
[2021-09-02] MEDS: Milk of Magnesia 30 ML ORAL.SUSP PO (17:57)
[2021-09-02 21:00] VITALS: BP 119/58; PULSE 98; RESP 16; TEMP 36.6; O2SAT 96
[2021-09-02 21:01] LABS: Glucose, Whole Blood 217 mg/dL (60-115)
[2021-09-02] MEDS: carBAMazepine ER 200 MG TAB.ER.12H 400 MG PO (21:08)
[2021-09-02] MEDS: Atorvastatin Calcium 80 MG TABLET PO (21:08)
[2021-09-02] MEDS: traZODone HCL 100 MG TABLET PO (21:31)
[2021-09-03 08:54] LABS: Glucose, Whole Blood 328 mg/dL (60-115)
[2021-09-03 08:56] VITALS: BP 138/72; PULSE 88; RESP 16; TEMP 36.7; O2SAT 95
[2021-09-03] MEDS: amLODIPine Besylate 10 MG TABLET PO (09:06)
[2021-09-03] MEDS: OLANZapine ODT 10 MG TAB.RAPDIS TRANSLINGU ×4 (09:07→22:15)
[2021-09-03] MEDS: Aspirin Enteric Coated 81 MG TABLET.DR PO (09:07)
[2021-09-03] MEDS: lisinopriL 10 MG TABLET PO (09:07)
[2021-09-03] MEDS: carBAMazepine ER 200 MG TAB.ER.12H PO (09:07)
[2021-09-03] MEDS: metFORMIN HCl 1,000 MG TABLET 1000 MG PO (09:07)
[2021-09-03] MEDS: Insulin Lispro 100 UNIT/ML 3 ML VIAL SUBCUT ×4 (09:08→20:32)
[2021-09-03] MEDS: Insulin Glargine,Hum.rec.anlog 100 UNIT/ML 10 ML VIAL 12 UNIT SUBCUT (09:08)
[2021-09-03] MEDS: cloNIDine HCL 0.1 MG TABLET PO ×2 (09:08→22:15)
[2021-09-03 12:35] LABS: Glucose, Whole Blood 154 mg/dL (60-115)
--- NOTE | 2021-09-03 14:14 | HO.PSYCHPN ---
Subjective Subjective Date of Service: 09/03/21 Reason For Visit: antonio Interim History: Pt reports sleeping and eating well. She shows more insight as to importance to continue taking psychiatric medications as well as medical medications. Pt then asks to be discharged AMA. Pt informed that although she seems more stable still needs more time on the medications for further stabilization. Moreover, this group underwriter informed pt that team is concern in terms of ability to care for herself. Pt struggles to remember phone number of sister, can't give much details as to where she lives nor she knows she can return there. She demands this group underwriter to discharge me AMA, I will find [facility]. However, pt does not have her debit card nor access to [employer], doesn't have a place to live and we have not been able to confirm she can return to care home. She was in agreement to referral to A and admits she would benefit from this service in community. This group underwriter again informed pt that we can assist with making sure she has supports in community and safe place to live, somehow, pt very suspicious of this offering stating, she would figure it out on her own. She reports she does not want to stay in hospital any longer. She became somewhat agitated, asking to be discharged right away despite this group underwriter informing pt that she has no place to go, that it's very cold outside and she could suffer significant harm to self if not going to stable place, in addition to suspicion that pt may have a more significant cognitive impairment not accounted for psychiatric symptoms. This group underwriter called pt's PCP- at [facility] but she apparently has not been seen there since 2014. Medication Compliance: Yes Side effects from medications: No Attending Groups: No Review of Systems Acute medical concerns: No Review of Systems Constitutional: Reports weight loss Cardiovascular: Denies chest pain, Denies rapid heart rate and Denies irregular heart rhythm Mental Status Exam Mental Status Exam Narrative: Appearance: thin, short hair, casually groomed, fair hygiene in NAD Behavior:much calmer, somewhat guarded and mildly irritated with this group underwriter at times psychomotor: no agitation Speech:more clear, less hyperverbal, spontaneous Thought process:more organized but some loose association still present Thought content:some suspiciousness and mistrust towards father, doctors, looking to get better, some awareness that mentally not doing well and needing help with making decisions Mood: okay Affect: less labile SI:denies HI:denies VH/AH:none Delusions:less suspiciousness Insight/judgment:impaired x 2. Memory/cog: alert, oriented to year, month, not to situation. severely impaired otherwise to meet minimal demands to care for self. may do MOCA once psychiatrically more stable as suspect underlying neurocognitive disorder. Diagnostics Vital Signs (24Hr): Vital Signs - 24 hr 09/02/21 21:00 09/03/21 08:56 Temperature 98 F 98.1 F Pulse Rate 98 88 Respiratory Rate 16 16 Blood Pressure 119/58 L 138/72 Pulse Oximetry 96 95 BMI result Body Mass Index 21.9 Labs Results: 08/30/21 09:06 08/30/21 09:06 Labs: Laboratory Results - last 48 hr 09/01/21 09/01/21 09/02/21 17:24 20:52 08:18 POC Glucose 183 H 276 H Total Bilirubin 0.3 Direct Bilirubin < 0.2 AST 26 ALT 47 H Alkaline Phosphatase 114 Total Protein 5.9 L Albumin 3.9 Carbamazepine 9.4 09/02/21 09/02/21 09/02/21 08:42 12:38 17:46 POC Glucose 231 H 236 H 167 H Total Bilirubin Direct Bilirubin AST ALT Alkaline Phosphatase Total Protein Albumin Carbamazepine 09/02/21 09/03/21 09/03/21 20:56 08:49 12:31 POC Glucose 217 H 328 H 154 H Total Bilirubin Direct Bilirubin AST ALT Alkaline Phosphatase Total Protein Albumin Carbamazepine Medications Medications Current Medications Acetaminophen (Acetaminophen 325 Mg Tablet) 650 mg PO Q6H PRN PRN Reason: Headache/Pain Mild Scale (1-3) Last Admin: 09/01/21 15:58 Dose: 650 mg Documented by: Al Hydroxide/Mg Hydroxide (Magnesium Hydrox/Alum Hydrox 30 Ml Oral.Susp) 30 ml PO Q6H PRN PRN Reason: Heartburn/Nausea Last Admin: 09/01/21 22:27 Dose: 30 ml Documented by: Amlodipine Besylate (Amlodipine Besylate 10 Mg Tablet) 10 mg PO DAILY [facility]; Protocol Last Admin: 09/03/21 09:06 Dose: 10 mg Documented by: Aspirin (Aspirin Enteric Coated 81 Mg Tablet.) 81 mg PO DAILY [facility] Last Admin: 09/03/21 09:07 Dose: 81 mg Documented by: Atorvastatin Calcium (Atorvastatin Calcium 80 Mg Tablet) 80 mg PO BEDTIME [facility] Last Admin: 09/02/21 21:08 Dose: 80 mg Documented by: Carbamazepine (Carbamazepine Er 200 Mg Tab.Er.12h) 200 mg PO DAILY [facility] Last Admin: 09/03/21 09:07 Dose: 200 mg Documented by: Carbamazepine (Carbamazepine Er 200 Mg Tab.Er.12h) 400 mg PO BEDTIME [facility] Last Admin: 09/02/21 21:08 Dose: 400 mg Documented by: Clonidine HCl (Clonidine Hcl 0.1 Mg Tablet) 0.1 mg PO BID [facility]; Protocol Last Admin: 09/03/21 09:08 Dose: 0.1 mg Documented by: Docusate Sodium (Docusate Sodium 100 Mg Capsule) 100 mg PO DAILY PRN PRN Reason: Constipation Glucose (Glucose Gel 15 Gm Gel..Gram.) 15 gm PO Q15M PRN; Protocol PRN Reason: per Hypoglycemia Standing Ord. Hydroxyzine HCl (Hydroxyzine Hcl 25 Mg Tablet) 25 mg PO BEDTIME PRN PRN Reason: Anxiety Last Admin: 08/27/21 21:48 Dose: 25 mg Documented by: Hydroxyzine HCl (Hydroxyzine Hcl 25 Mg Tablet) 25 mg PO BEDTIME PRN PRN Reason: Anxiety Insulin Glargine (Insulin Glargine,Hum.Rec.Anlog 100 Unit/Ml 10 Ml Vial) 12 unit SUBCUT DAILY [facility] Last Admin: 09/03/21 09:08 Dose: 12 unit Documented by: Insulin Human Lispro (Insulin Lispro 100 Unit/Ml 3 Ml Vial) 0 unit SUBCUT QIDACHS [facility]; Protocol Last Admin: 09/03/21 12:53 Dose: 2 unit Documented by: Lisinopril (Lisinopril 10 Mg Tablet) 10 mg PO DAILY [facility]; Protocol Last Admin: 09/03/21 09:07 Dose: 10 mg Documented by: Magnesium Hydroxide (Milk Of Magnesia 30 Ml Oral.Susp) 30 ml PO DAILY PRN PRN Reason: Constipation Last Admin: 09/02/21 17:57 Dose: 30 ml Documented by: Metformin HCl (Metformin Hcl 1,000 Mg Tablet) 1,000 mg PO BID [facility] Last Admin: 09/03/21 09:07 Dose: 1,000 mg Documented by: Olanzapine (Olanzapine Odt 10 Mg Tab.Rapdis) 10 mg TRANSLINGU Q6H PRN PRN Reason: agitation Last Admin: 09/03/21 11:07 Dose: 10 mg Documented by: Olanzapine (Olanzapine Odt 10 Mg Tab.Rapdis) 10 mg TRANSLINGU TID [facility] Last Admin: 09/03/21 15:17 Dose: 10 mg Documented by: Trazodone HCl (Trazodone Hcl 100 Mg Tablet) 100 mg PO BEDTIME PRN PRN Reason: Insomnia Last Admin: 09/02/21 21:31 Dose: 100 mg Documented by: Allergies Allergies Allergy/AdvReac Type Severity Reaction Status Date / Time No Known Allergies Allergy Verified 08/21/21 18:57 Assessment & Plan Assessment & Plan (1) Bipolar 1 disorder: Status: Acute Code(s): F31.9 - Bipolar disorder, unspecified (2) Seizure disorder: Code(s): G40.909 - Epilepsy, unspecified, not intractable, without status epilepticus Plan Ms. Alejandre is a 56 year-old woman with hx of Bipolar disorder who was brought via EMS to [facility] ED. She was initially admitted medically for AMS, MRI did not show acute or subacute pathology, although pt does have chronic encephalomalacia of the left hemisphere and mild underlying microangiopathy. Utox was negative. EEG showed right fronto temporal abnormality with tendency for partial seizure disorder. Pt started on cabamazepine for mood and seizure treatment. PLAN 1. Admit to M3, Sect 12, 15 mins checks for safety 2. Continue Carbamazepine 200mg po daily and 400mg po qhs 3. Continue Olanzapine zydis 10mg po TID on 08/27/21, prn for agitation. 4. Called HCP Randa [phone] no answer - still we have not reach out to any family members 5. Obtain collateral information 6. Aftercare planning. 08/31: Ct plan. No med changes I spent minutes with the patient and/or on the patient floor today, greater than?50% of which was spent counseling/coordinating care. Reason for contiued inpatient stay Substantial Risk for: inability to function
[2021-09-03 17:51] LABS: Glucose, Whole Blood 187 mg/dL (60-115)
[2021-09-03 18:00] VITALS: BP 100/58; PULSE 96; RESP 18; TEMP 36.6; O2SAT 95
[2021-09-03 20:26] LABS: Glucose, Whole Blood 346 mg/dL (60-115)
[2021-09-03] MEDS: carBAMazepine ER 200 MG TAB.ER.12H 400 MG PO (22:15)
[2021-09-03] MEDS: Atorvastatin Calcium 80 MG TABLET PO (22:16)
[2021-09-03] MEDS: traZODone HCL 100 MG TABLET PO (22:25)
--- NOTE | 2021-09-03 22:27 | PC.NURSE ---
Pt refused states that if she takes it twice daily it give her diarrhea.
[2021-09-03 22:30] VITALS: BP 121/65; PULSE 95
[2021-09-04 07:57] LABS: Glucose, Whole Blood 309 mg/dL (60-115)
[2021-09-04 08:27] VITALS: BP 114/67; PULSE 82; RESP 16; TEMP 36.4; O2SAT 96
[2021-09-04] MEDS: lisinopriL 10 MG TABLET PO (08:28)
[2021-09-04] MEDS: cloNIDine HCL 0.1 MG TABLET PO ×2 (08:28→21:29)
[2021-09-04] MEDS: carBAMazepine ER 200 MG TAB.ER.12H PO (08:29)
[2021-09-04] MEDS: metFORMIN HCl 1,000 MG TABLET 1000 MG PO (08:29)
[2021-09-04] MEDS: Aspirin Enteric Coated 81 MG TABLET.DR PO (08:29)
[2021-09-04] MEDS: OLANZapine ODT 10 MG TAB.RAPDIS TRANSLINGU ×4 (08:29→21:30)
[2021-09-04] MEDS: amLODIPine Besylate 10 MG TABLET PO (08:29)
[2021-09-04] MEDS: Insulin Glargine,Hum.rec.anlog 100 UNIT/ML 10 ML VIAL 12 UNIT SUBCUT (09:03)
[2021-09-04] MEDS: Insulin Lispro 100 UNIT/ML 3 ML VIAL SUBCUT ×3 (09:04→21:29)
[2021-09-04 09:50] LABS: Carbamazepine Tegretol 8.3 mcg/mL (5.0-12.0)
--- NOTE | 2021-09-04 11:05 | HO.PSYCHPN ---
Subjective Subjective Date of Service: 09/04/21 Reason For Visit: antonio Subjective Notes: Section 7 Interim History: Pt calmer, more receptive to accept help finding stable housing. Pt denies SI/HI. Less suspicious, more organized. Pt denies VH/AH. She reports father being dismissive and not caring towards her. Pt slept through the night. Not as intrusive nor hyperverbal. Her thought process although more organized and coherent missing information that I suspect is more related to underlying cognitive disorder. Medication Compliance: Yes Side effects from medications: No Attending Groups: Intermittent Review of Systems Constitutional: Reports weight loss Cardiovascular: Denies chest pain, Denies rapid heart rate and Denies irregular heart rhythm Mental Status Exam Mental Status Exam Narrative: Appearance: thin, short hair, casually groomed, fair hygiene in NAD Behavior:much calmer, somewhat guarded and mildly irritated with this global technical writer at times psychomotor: no agitation Speech:more clear, less hyperverbal, spontaneous Thought process:more organized but some loose association still present Thought content:some suspiciousness and mistrust towards father, doctors, looking to get better, some awareness that mentally not doing well and needing help with making decisions Mood: okay Affect: less labile SI:denies HI:denies VH/AH:none Delusions:less suspiciousness Insight/judgment:impaired x 2. Memory/cog: alert, oriented to year, month, not to situation. severely impaired otherwise to meet minimal demands to care for self. may do MOCA once psychiatrically more stable as suspect underlying neurocognitive disorder. Diagnostics Vital Signs (24Hr): Vital Signs - 24 hr 09/04/21 21:33 09/05/21 08:07 Temperature 97.8 F 98.0 F Pulse Rate 87 81 Respiratory Rate 16 Blood Pressure 132/72 124/60 Pulse Oximetry 95 96 BMI result Body Mass Index 21.7 Labs Results: 08/30/21 09:06 08/30/21 09:06 Labs: Laboratory Results - last 48 hr 09/03/21 09/03/21 09/03/21 12:31 17:46 20:18 POC Glucose 154 H 187 H 346 H Carbamazepine 09/04/21 09/04/21 09/04/21 07:53 08:15 12:44 POC Glucose 309 H 117 H Carbamazepine 8.3 09/04/21 09/04/21 09/05/21 17:46 21:20 09:10 POC Glucose 221 H 242 H 225 H Carbamazepine Medications Medications Current Medications Acetaminophen (Acetaminophen 325 Mg Tablet) 650 mg PO Q6H PRN PRN Reason: Headache/Pain Mild Scale (1-3) Last Admin: 09/01/21 15:58 Dose: 650 mg Documented by: Al Hydroxide/Mg Hydroxide (Magnesium Hydrox/Alum Hydrox 30 Ml Oral.Susp) 30 ml PO Q6H PRN PRN Reason: Heartburn/Nausea Last Admin: 09/01/21 22:27 Dose: 30 ml Documented by: Amlodipine Besylate (Amlodipine Besylate 10 Mg Tablet) 10 mg PO DAILY [facility]; Protocol Last Admin: 09/05/21 08:03 Dose: 10 mg Documented by: Aspirin (Aspirin Enteric Coated 81 Mg Tablet.) 81 mg PO DAILY [facility] Last Admin: 09/05/21 08:03 Dose: 81 mg Documented by: Atorvastatin Calcium (Atorvastatin Calcium 80 Mg Tablet) 80 mg PO BEDTIME [facility] Last Admin: 09/04/21 21:29 Dose: 80 mg Documented by: Carbamazepine (Carbamazepine Er 200 Mg Tab.Er.12h) 200 mg PO DAILY [facility] Last Admin: 09/05/21 08:03 Dose: 200 mg Documented by: Carbamazepine (Carbamazepine Er 200 Mg Tab.Er.12h) 400 mg PO BEDTIME [facility] Last Admin: 09/04/21 21:30 Dose: 400 mg Documented by: Clonidine HCl (Clonidine Hcl 0.1 Mg Tablet) 0.1 mg PO BID [facility]; Protocol Last Admin: 09/05/21 08:03 Dose: 0.1 mg Documented by: Docusate Sodium (Docusate Sodium 100 Mg Capsule) 100 mg PO DAILY PRN PRN Reason: Constipation Glucose (Glucose Gel 15 Gm Gel..Gram.) 15 gm PO Q15M PRN; Protocol PRN Reason: per Hypoglycemia Standing Ord. Hydroxyzine HCl (Hydroxyzine Hcl 25 Mg Tablet) 25 mg PO BEDTIME PRN PRN Reason: Anxiety Last Admin: 08/27/21 21:48 Dose: 25 mg Documented by: Hydroxyzine HCl (Hydroxyzine Hcl 25 Mg Tablet) 25 mg PO BEDTIME PRN PRN Reason: Anxiety Insulin Glargine (Insulin Glargine,Hum.Rec.Anlog 100 Unit/Ml 10 Ml Vial) 12 unit SUBCUT DAILY [facility] Last Admin: 09/05/21 09:22 Dose: 12 unit Documented by: Insulin Human Lispro (Insulin Lispro 100 Unit/Ml 3 Ml Vial) 0 unit SUBCUT QIDACHS [facility]; Protocol Last Admin: 09/05/21 09:17 Dose: 4 unit Documented by: Lisinopril (Lisinopril 10 Mg Tablet) 10 mg PO DAILY [facility]; Protocol Last Admin: 09/05/21 08:03 Dose: 10 mg Documented by: Magnesium Hydroxide (Milk Of Magnesia 30 Ml Oral.Susp) 30 ml PO DAILY PRN PRN Reason: Constipation Last Admin: 09/02/21 17:57 Dose: 30 ml Documented by: Metformin HCl (Metformin Hcl 1,000 Mg Tablet) 1,000 mg PO BID [facility] Last Admin: 09/05/21 08:03 Dose: 1,000 mg Documented by: Olanzapine (Olanzapine Odt 10 Mg Tab.Rapdis) 10 mg TRANSLINGU Q6H PRN PRN Reason: agitation Last Admin: 09/04/21 17:49 Dose: 10 mg Documented by: Olanzapine (Olanzapine Odt 10 Mg Tab.Rapdis) 10 mg TRANSLINGU TID [facility] Last Admin: 09/05/21 08:03 Dose: 10 mg Documented by: Trazodone HCl (Trazodone Hcl 100 Mg Tablet) 100 mg PO BEDTIME PRN PRN Reason: Insomnia Last Admin: 09/04/21 21:59 Dose: 100 mg Documented by: Allergies Allergies Allergy/AdvReac Type Severity Reaction Status Date / Time No Known Allergies Allergy Verified 08/21/21 18:57 Assessment & Plan Assessment & Plan (1) Bipolar 1 disorder: Status: Acute Code(s): F31.9 - Bipolar disorder, unspecified (2) Seizure disorder: Code(s): G40.909 - Epilepsy, unspecified, not intractable, without status epilepticus Plan Ms. Alejandre is a 56 year-old woman with hx of Bipolar disorder who was brought via EMS to [facility] ED. She was initially admitted medically for AMS, MRI did not show acute or subacute pathology, although pt does have chronic encephalomalacia of the left hemisphere and mild underlying microangiopathy. Utox was negative. EEG showed right fronto temporal abnormality with tendency for partial seizure disorder. Pt started on cabamazepine for mood and seizure treatment. PLAN 1. Admit to M3, Sect 12, 15 mins checks for safety 2. Continue Carbamazepine 200mg po daily and 400mg po qhs 3. Continue Olanzapine zydis 10mg po TID on 08/27/21, prn for agitation. 4. Called HCP Randa [phone] no answer - still we have not reach out to any family members 5. Obtain collateral information 6. Aftercare planning. 08/31: Ct plan. No med changes I spent minutes with the patient and/or on the patient floor today, greater than?50% of which was spent counseling/coordinating care. Reason for contiued inpatient stay Substantial Risk for: inability to function
[2021-09-04 12:49] LABS: Glucose, Whole Blood 117 mg/dL (60-115)
[2021-09-04 17:51] LABS: Glucose, Whole Blood 221 mg/dL (60-115)
[2021-09-04 21:25] LABS: Glucose, Whole Blood 242 mg/dL (60-115)
[2021-09-04] MEDS: Atorvastatin Calcium 80 MG TABLET PO (21:29)
[2021-09-04] MEDS: carBAMazepine ER 200 MG TAB.ER.12H 400 MG PO (21:30)
[2021-09-04 21:33] VITALS: BP 132/72; PULSE 87; TEMP 36.6; O2SAT 95
[2021-09-04] MEDS: traZODone HCL 100 MG TABLET PO (21:59)
[2021-09-05] MEDS: amLODIPine Besylate 10 MG TABLET PO (08:03)
[2021-09-05] MEDS: Aspirin Enteric Coated 81 MG TABLET.DR PO (08:03)
[2021-09-05] MEDS: OLANZapine ODT 10 MG TAB.RAPDIS TRANSLINGU ×4 (08:03→21:17)
[2021-09-05] MEDS: cloNIDine HCL 0.1 MG TABLET PO ×2 (08:03→21:17)
[2021-09-05] MEDS: lisinopriL 10 MG TABLET PO (08:03)
[2021-09-05] MEDS: carBAMazepine ER 200 MG TAB.ER.12H PO (08:03)
[2021-09-05] MEDS: metFORMIN HCl 1,000 MG TABLET 1000 MG PO (08:03)
[2021-09-05 08:07] VITALS: BP 124/60; PULSE 81; RESP 16; TEMP 36.7; O2SAT 96
[2021-09-05 09:14] LABS: Glucose, Whole Blood 225 mg/dL (60-115)
[2021-09-05] MEDS: Insulin Lispro 100 UNIT/ML 3 ML VIAL SUBCUT ×4 (09:17→21:18)
[2021-09-05] MEDS: Insulin Glargine,Hum.rec.anlog 100 UNIT/ML 10 ML VIAL 12 UNIT SUBCUT (09:22)
[2021-09-05 10:35] VITALS: BMI 21.7
--- NOTE | 2021-09-05 11:34 | HO.PSYCHPN ---
Subjective Subjective Date of Service: 09/05/21 Reason For Visit: antonio Subjective Notes: Section 7 Interim History: Pt less labile, calmer. Her thought process more linear, some gaps in terms of memory and explaining her living situation. Housing management in contect with SW- informed her that company recently bought building but they are not renewing anyone's lease. Pt has to leave apartment by end of September. Pt in agreement to referral to VNA, CSP worker, psych tx. She denies SI/HI. She is less suspicious. She is sleeping and eating well. Medication Compliance: Yes Side effects from medications: No Attending Groups: No Review of Systems Constitutional: Reports weight loss Cardiovascular: Denies chest pain, Denies rapid heart rate and Denies irregular heart rhythm Mental Status Exam Mental Status Exam Narrative: Appearance: thin, short hair, casually groomed, fair hygiene in NAD Behavior:much calmer, somewhat guarded and mildly irritated with this contract writer at times psychomotor: no agitation Speech:more clear, less hyperverbal, spontaneous Thought process:more organized but some loose association still present Thought content:some suspiciousness and mistrust towards father, doctors, looking to get better, some awareness that mentally not doing well and needing help with making decisions Mood: okay Affect: less labile SI:denies HI:denies VH/AH:none Delusions:less suspiciousness Insight/judgment:impaired x 2. Memory/cog: alert, oriented to year, month, not to situation. severely impaired otherwise to meet minimal demands to care for self. may do MOCA once psychiatrically more stable as suspect underlying neurocognitive disorder. Diagnostics Vital Signs (24Hr): Vital Signs - 24 hr 09/06/21 08:55 Temperature 98.4 F Pulse Rate 84 Respiratory Rate 17 Blood Pressure 156/79 H Pulse Oximetry 98 BMI result Body Mass Index 21.7 Labs Results: 08/30/21 09:06 08/30/21 09:06 Labs: Laboratory Results - last 48 hr 09/04/21 09/04/21 09/04/21 08:15 12:44 17:46 POC Glucose 117 H 221 H Carbamazepine 8.3 09/04/21 09/05/21 09/05/21 21:20 09:10 12:28 POC Glucose 242 H 225 H 216 H Carbamazepine 09/05/21 09/05/21 09/06/21 17:47 21:07 00:53 POC Glucose 194 H 263 H 149 H Carbamazepine 09/06/21 07:53 POC Glucose 231 H Carbamazepine Medications Medications Current Medications Acetaminophen (Acetaminophen 325 Mg Tablet) 650 mg PO Q6H PRN PRN Reason: Headache/Pain Mild Scale (1-3) Last Admin: 09/01/21 15:58 Dose: 650 mg Documented by: Al Hydroxide/Mg Hydroxide (Magnesium Hydrox/Alum Hydrox 30 Ml Oral.Susp) 30 ml PO Q6H PRN PRN Reason: Heartburn/Nausea Last Admin: 09/05/21 14:33 Dose: 30 ml Documented by: Amlodipine Besylate (Amlodipine Besylate 10 Mg Tablet) 10 mg PO DAILY [facility]; Protocol Last Admin: 09/06/21 08:59 Dose: 10 mg Documented by: Aspirin (Aspirin Enteric Coated 81 Mg Tablet.Dr) 81 mg PO DAILY [facility] Last Admin: 09/06/21 09:00 Dose: 81 mg Documented by: Atorvastatin Calcium (Atorvastatin Calcium 80 Mg Tablet) 80 mg PO BEDTIME [facility] Last Admin: 09/05/21 21:17 Dose: 80 mg Documented by: Carbamazepine (Carbamazepine Er 200 Mg Tab.Er.12h) 200 mg PO DAILY [facility] Last Admin: 09/06/21 09:00 Dose: 200 mg Documented by: Carbamazepine (Carbamazepine Er 200 Mg Tab.Er.12h) 400 mg PO BEDTIME [facility] Last Admin: 09/05/21 21:17 Dose: 400 mg Documented by: Clonidine HCl (Clonidine Hcl 0.1 Mg Tablet) 0.1 mg PO BID [facility]; Protocol Last Admin: 09/06/21 08:59 Dose: 0.1 mg Documented by: Docusate Sodium (Docusate Sodium 100 Mg Capsule) 100 mg PO DAILY PRN PRN Reason: Constipation Glucose (Glucose Gel 15 Gm Gel..Gram.) 15 gm PO Q15M PRN; Protocol PRN Reason: per Hypoglycemia Standing Ord. Hydroxyzine HCl (Hydroxyzine Hcl 25 Mg Tablet) 25 mg PO BEDTIME PRN PRN Reason: Anxiety Last Admin: 08/27/21 21:48 Dose: 25 mg Documented by: Hydroxyzine HCl (Hydroxyzine Hcl 25 Mg Tablet) 25 mg PO BEDTIME PRN PRN Reason: Anxiety Insulin Glargine (Insulin Glargine,Hum.Rec.Anlog 100 Unit/Ml 10 Ml Vial) 12 unit SUBCUT DAILY [facility] Last Admin: 09/06/21 08:56 Dose: 12 unit Documented by: Insulin Human Lispro (Insulin Lispro 100 Unit/Ml 3 Ml Vial) 0 unit SUBCUT QIDACHS [facility]; Protocol Last Admin: 09/06/21 08:55 Dose: 4 unit Documented by: Lisinopril (Lisinopril 10 Mg Tablet) 10 mg PO DAILY [facility]; Protocol Last Admin: 09/06/21 08:59 Dose: 10 mg Documented by: Magnesium Hydroxide (Milk Of Magnesia 30 Ml Oral.Susp) 30 ml PO DAILY PRN PRN Reason: Constipation Last Admin: 09/02/21 17:57 Dose: 30 ml Documented by: Metformin HCl (Metformin Hcl 1,000 Mg Tablet) 1,000 mg PO BID [facility] Last Admin: 09/06/21 08:58 Dose: 1,000 mg Documented by: Olanzapine (Olanzapine Odt 10 Mg Tab.Rapdis) 10 mg TRANSLINGU Q6H PRN PRN Reason: agitation Last Admin: 09/05/21 17:17 Dose: 10 mg Documented by: Olanzapine (Olanzapine Odt 10 Mg Tab.Rapdis) 10 mg TRANSLINGU TID [facility] Last Admin: 09/06/21 09:00 Dose: 10 mg Documented by: Trazodone HCl (Trazodone Hcl 100 Mg Tablet) 100 mg PO BEDTIME PRN PRN Reason: Insomnia Last Admin: 09/05/21 22:00 Dose: 100 mg Documented by: Allergies Allergies Allergy/AdvReac Type Severity Reaction Status Date / Time No Known Allergies Allergy Verified 08/21/21 18:57 Assessment & Plan Assessment & Plan (1) Bipolar 1 disorder: Status: Acute Code(s): F31.9 - Bipolar disorder, unspecified (2) Seizure disorder: Code(s): G40.909 - Epilepsy, unspecified, not intractable, without status epilepticus Plan Ms. Alejandre is a 56 year-old woman with hx of Bipolar disorder who was brought via EMS [place] [facility] She was initially admitted medically for AMS, MRI did not show acute or subacute pathology, although pt does have chronic encephalomalacia of the left hemisphere and mild underlying microangiopathy. Utox was negative. EEG showed right fronto temporal abnormality with tendency for partial seizure disorder. Pt started on cabamazepine for mood and seizure treatment. PLAN 1. Admit to , Sect 12, 15 mins checks for safety 2. Continue Carbamazepine 200mg po daily and 400mg po qhs 3. Continue Olanzapine zydis 10mg po TID on 08/27/21, prn for agitation. 4. Called HCP Randa [phone] no answer - still we have not reach out to any family members 5. Obtain collateral information 6. Aftercare planning. 08/31: Ct plan. No med changes I spent minutes with the patient and/or on the patient floor today, greater than?50% of which was spent counseling/coordinating care. Reason for contiued inpatient stay Substantial Risk for: inability to function
[2021-09-05 12:33] LABS: Glucose, Whole Blood 216 mg/dL (60-115)
[2021-09-05] MEDS: Magnesium Hydrox/Alum Hydrox 30 ML ORAL.SUSP PO (14:33)
[2021-09-05 17:52] LABS: Glucose, Whole Blood 194 mg/dL (60-115)
[2021-09-05 21:12] LABS: Glucose, Whole Blood 263 mg/dL (60-115)
[2021-09-05] MEDS: carBAMazepine ER 200 MG TAB.ER.12H 400 MG PO (21:17)
[2021-09-05] MEDS: Atorvastatin Calcium 80 MG TABLET PO (21:17)
[2021-09-05] MEDS: traZODone HCL 100 MG TABLET PO (22:00)
[2021-09-06 01:03] LABS: Glucose, Whole Blood 149 mg/dL (60-115)
[2021-09-06 07:57] LABS: Glucose, Whole Blood 231 mg/dL (60-115)
--- NOTE | 2021-09-06 08:42 | P.PNPSI_ITS ---
Subjective Subjective Date of Service: 09/06/21 Reason For Visit: antonio Subjective Notes: Section 7 Interim History: Pt continues to present as much calmer, thought process more organized, although suspect underlying cognitive impairments. Pt reports sleeping and eating well. She is saddened by of mother about one year ago. She is optimisitc about going back to apartment and working with [employer] worker to find housing prior to her lease expiring end of the month. Pt taking medications. reports GI side effects with metformin in past - discussed switching to ER formulation. No behavioral concerns. Pt in agreement to referral to VNA, CSP worker, psych tx. She denies SI/HI. She is less suspicious. She is sleeping and eating well. Medication Compliance: Yes Side effects from medications: No Review of Systems Constitutional: Reports weight loss Cardiovascular: Denies chest pain, Denies rapid heart rate and Denies irregular heart rhythm Mental Status Exam Mental Status Exam Narrative: Appearance: thin, short hair, casually groomed, fair hygiene in NAD Behavior:much calmer, somewhat guarded and mildly irritated with this commercial lines underwriter at times psychomotor: no agitation Speech:more clear, less hyperverbal, spontaneous Thought process:more organized but some loose association still present Thought content:some suspiciousness and mistrust towards father, doctors, looking to get better, some awareness that mentally not doing well and needing help with making decisions Mood: okay Affect: less labile SI:denies HI:denies VH/AH:none Delusions:less suspiciousness Insight/judgment:impaired x 2. Memory/cog: alert, oriented to year, month, not to situation. severely impaired otherwise to meet minimal demands to care for self. may do MOCA once psychiatrically more stable as suspect underlying neurocognitive disorder. Diagnostics Vital Signs (24Hr): Vital Signs - 24 hr 09/06/21 08:55 09/06/21 21:35 Temperature 98.4 F 98 F Pulse Rate 84 90 Respiratory Rate 17 18 Blood Pressure 156/79 H 134/65 Pulse Oximetry 98 94 BMI result Body Mass Index 21.7 Labs Results: 08/30/21 09:06 08/30/21 09:06 Labs: Laboratory Results - last 48 hr 09/05/21 09/05/21 09/05/21 09:10 12:28 17:47 POC Glucose 225 H 216 H 194 H 09/05/21 09/06/21 09/06/21 21:07 00:53 07:53 POC Glucose 263 H 149 H 231 H 09/06/21 09/06/21 09/06/21 12:43 17:39 21:30 POC Glucose 226 H 190 H 200 H Medications Medications Current Medications Acetaminophen (Acetaminophen 325 Mg Tablet) 650 mg PO Q6H PRN PRN Reason: Headache/Pain Mild Scale (1-3) Last Admin: 09/01/21 15:58 Dose: 650 mg Documented by: Al Hydroxide/Mg Hydroxide (Magnesium Hydrox/Alum Hydrox 30 Ml Oral.Susp) 30 ml PO Q6H PRN PRN Reason: Heartburn/Nausea Last Admin: 09/05/21 14:33 Dose: 30 ml Documented by: Amlodipine Besylate (Amlodipine Besylate 10 Mg Tablet) 10 mg PO DAILY [facility]; Protocol Last Admin: 09/06/21 08:59 Dose: 10 mg Documented by: Aspirin (Aspirin Enteric Coated 81 Mg Tablet.) 81 mg PO DAILY [facility] Last Admin: 09/06/21 09:00 Dose: 81 mg Documented by: Atorvastatin Calcium (Atorvastatin Calcium 80 Mg Tablet) 80 mg PO BEDTIME [facility] Last Admin: 09/06/21 21:42 Dose: 80 mg Documented by: Carbamazepine (Carbamazepine Er 200 Mg Tab.Er.12h) 200 mg PO DAILY [facility] Last Admin: 09/06/21 09:00 Dose: 200 mg Documented by: Carbamazepine (Carbamazepine Er 200 Mg Tab.Er.12h) 400 mg PO BEDTIME [facility] Last Admin: 09/06/21 21:42 Dose: 400 mg Documented by: Clonidine HCl (Clonidine Hcl 0.1 Mg Tablet) 0.1 mg PO BID [facility]; Protocol Last Admin: 09/06/21 21:41 Dose: 0.1 mg Documented by: Docusate Sodium (Docusate Sodium 100 Mg Capsule) 100 mg PO DAILY PRN PRN Reason: Constipation Glucose (Glucose Gel 15 Gm Gel..Gram.) 15 gm PO Q15M PRN; Protocol PRN Reason: per Hypoglycemia Standing Ord. Hydroxyzine HCl (Hydroxyzine Hcl 25 Mg Tablet) 25 mg PO BEDTIME PRN PRN Reason: Anxiety Last Admin: 08/27/21 21:48 Dose: 25 mg Documented by: Hydroxyzine HCl (Hydroxyzine Hcl 25 Mg Tablet) 25 mg PO BEDTIME PRN PRN Reason: Anxiety Insulin Glargine (Insulin Glargine,Hum.Rec.Anlog 100 Unit/Ml 10 Ml Vial) 12 unit SUBCUT DAILY [facility] Last Admin: 09/06/21 08:56 Dose: 12 unit Documented by: Insulin Human Lispro (Insulin Lispro 100 Unit/Ml 3 Ml Vial) 0 unit SUBCUT QIDACHS [facility]; Protocol Last Admin: 09/06/21 21:43 Dose: 2 unit Documented by: Lisinopril (Lisinopril 10 Mg Tablet) 10 mg PO DAILY [facility]; Protocol Last Admin: 09/06/21 08:59 Dose: 10 mg Documented by: Magnesium Hydroxide (Milk Of Magnesia 30 Ml Oral.Susp) 30 ml PO DAILY PRN PRN Reason: Constipation Last Admin: 09/02/21 17:57 Dose: 30 ml Documented by: Metformin HCl (Metformin Hcl 1,000 Mg Tablet) 1,000 mg PO BID [facility] Last Admin: 09/06/21 21:51 Dose: Not Given Documented by: Olanzapine (Olanzapine Odt 10 Mg Tab.Rapdis) 10 mg TRANSLINGU Q6H PRN PRN Reason: agitation Last Admin: 09/06/21 19:50 Dose: 10 mg Documented by: Olanzapine (Olanzapine Odt 10 Mg Tab.Rapdis) 10 mg TRANSLINGU TID [facility] Last Admin: 09/06/21 21:42 Dose: 10 mg Documented by: Trazodone HCl (Trazodone Hcl 100 Mg Tablet) 100 mg PO BEDTIME PRN PRN Reason: Insomnia Last Admin: 09/06/21 21:48 Dose: 100 mg Documented by: Allergies Allergies Allergy/AdvReac Type Severity Reaction Status Date / Time No Known Allergies Allergy Verified 08/21/21 18:57 Assessment & Plan Assessment & Plan (1) Bipolar 1 disorder: Status: Acute Code(s): F31.9 - Bipolar disorder, unspecified (2) Seizure disorder: Code(s): G40.909 - Epilepsy, unspecified, not intractable, without status epilepticus Plan Ms. Alejandre is a 56 year-old woman with hx of Bipolar disorder who was brought via EMS to [facility] [place] [facility]. She was initially admitted medically for AMS, MRI did not show acute or subacute pathology, although pt does have chronic encephalomalacia of the left hemisphere and mild underlying microangiopathy. Utox was negative. EEG showed right fronto temporal abnormality with tendency for partial seizure disorder. Pt started on cabamazepine for mood and seizure treatment. PLAN 1. Admit to M3, Sect 12, 15 mins checks for safety 2. Continue Carbamazepine 200mg po daily and 400mg po qhs 3. Continue Olanzapine zydis 10mg po TID on 08/27/21, prn for agitation. 4. Called HCP Randa [phone] no answer - still we have not reach out to any family members 5. Obtain collateral information 6. Aftercare planning. 08/31: Ct plan. No med changes I spent minutes with the patient and/or on the patient floor today, greater than?50% of which was spent counseling/coordinating care. Reason for contiued inpatient stay Substantial Risk for: inability to function
[2021-09-06 08:55] VITALS: BP 156/79; PULSE 84; RESP 17; TEMP 36.9; O2SAT 98
[2021-09-06] MEDS: Insulin Lispro 100 UNIT/ML 3 ML VIAL SUBCUT ×4 (08:55→21:43)
[2021-09-06] MEDS: Insulin Glargine,Hum.rec.anlog 100 UNIT/ML 10 ML VIAL 12 UNIT SUBCUT (08:56)
[2021-09-06] MEDS: metFORMIN HCl 1,000 MG TABLET 1000 MG PO (08:58)
[2021-09-06] MEDS: cloNIDine HCL 0.1 MG TABLET PO ×2 (08:59→21:41)
[2021-09-06] MEDS: lisinopriL 10 MG TABLET PO (08:59)
[2021-09-06] MEDS: amLODIPine Besylate 10 MG TABLET PO (08:59)
[2021-09-06] MEDS: Aspirin Enteric Coated 81 MG TABLET.DR PO (09:00)
[2021-09-06] MEDS: OLANZapine ODT 10 MG TAB.RAPDIS TRANSLINGU ×4 (09:00→21:42)
[2021-09-06] MEDS: carBAMazepine ER 200 MG TAB.ER.12H PO (09:00)
[2021-09-06 12:48] LABS: Glucose, Whole Blood 226 mg/dL (60-115)
[2021-09-06 17:44] LABS: Glucose, Whole Blood 190 mg/dL (60-115)
[2021-09-06 21:35] VITALS: BP 134/65; PULSE 90; RESP 18; TEMP 36.6; O2SAT 94
[2021-09-06 21:36] LABS: Glucose, Whole Blood 200 mg/dL (60-115)
[2021-09-06] MEDS: carBAMazepine ER 200 MG TAB.ER.12H 400 MG PO (21:42)
[2021-09-06] MEDS: Atorvastatin Calcium 80 MG TABLET PO (21:42)
[2021-09-06] MEDS: traZODone HCL 100 MG TABLET PO (21:48)
--- NOTE | 2021-09-07 03:49 | PC.NURSE ---
Pt refused metformin states that if she takes it twice daily it give her diarrhea.
[2021-09-07 08:46] LABS: Creatinine Clr Calc Pharmacy 72.4; Estimated Glomerular Filt Rate > 60
[2021-09-07 08:52] LABS: Glucose, Whole Blood 230 mg/dL (60-115)
[2021-09-07 08:56] VITALS: BP 140/78; PULSE 86; RESP 16; TEMP 36.6; O2SAT 94
[2021-09-07] MEDS: Insulin Lispro 100 UNIT/ML 3 ML VIAL SUBCUT ×4 (08:57→20:58)
[2021-09-07] MEDS: Insulin Glargine,Hum.rec.anlog 100 UNIT/ML 10 ML VIAL 12 UNIT SUBCUT (08:57)
[2021-09-07] MEDS: Aspirin Enteric Coated 81 MG TABLET.DR PO (09:00)
[2021-09-07] MEDS: cloNIDine HCL 0.1 MG TABLET PO ×2 (09:00→21:00)
[2021-09-07] MEDS: amLODIPine Besylate 10 MG TABLET PO (09:00)
[2021-09-07] MEDS: lisinopriL 10 MG TABLET PO (09:01)
[2021-09-07] MEDS: carBAMazepine ER 200 MG TAB.ER.12H PO (09:01)
[2021-09-07] MEDS: OLANZapine ODT 10 MG TAB.RAPDIS TRANSLINGU ×4 (09:01→21:00)
[2021-09-07 12:54] LABS: Glucose, Whole Blood 278 mg/dL (60-115)
--- NOTE | 2021-09-07 16:10 | P.PNPSI_ITS ---
Subjective Subjective Date of Service: 09/07/21 Reason For Visit: antonio Interim History: Pt continues to present as much calmer, thought process more organized, although suspect underlying cognitive impairments. Pt reports sleeping and eating well. She is saddened by of mother about one year ago. She is optimisitc about going back to apartment and working with [employer] worker to find housing prior to her lease expiring end of the month. Pt taking medications. reports GI side effects with metformin in past - discussed switching to ER formulation. No behavioral concerns. Pt in agreement to referral to VNA, CSP worker, psych tx. She denies SI/HI. She is less suspicious. She is sleeping and eating well. Review of Systems Constitutional: Reports weight loss Cardiovascular: Denies chest pain, Denies rapid heart rate and Denies irregular heart rhythm Mental Status Exam Mental Status Exam Narrative: Appearance: thin, short hair, casually groomed, fair hygiene in NAD Behavior:much calmer, somewhat guarded and mildly irritated with this proposal lead writer at times psychomotor: no agitation Speech:more clear, less hyperverbal, spontaneous Thought process:more organized but some loose association still present Thought content:some suspiciousness and mistrust towards father, doctors, looking to get better, some awareness that mentally not doing well and needing help with making decisions Mood: okay Affect: less labile SI:denies HI:denies VH/AH:none Delusions:less suspiciousness Insight/judgment:impaired x 2. Memory/cog: alert, oriented to year, month, not to situation. severely impaired otherwise to meet minimal demands to care for self. may do MOCA once psychiatrically more stable as suspect underlying neurocognitive disorder. Patient Appearance: Disheveled Patient Orientation: Place Level of Consciousness: Awake Patient Behavior: Guarded, Talkative and Invasion - Personal Space Affect Description: Suspicious Speech Pattern: Animated and Loud Diagnostics Vital Signs (24Hr): Vital Signs - 24 hr 09/07/21 08:56 09/07/21 21:00 Temperature 97.8 F 97.9 F Pulse Rate 86 83 Respiratory Rate 16 18 Blood Pressure 140/78 H 133/67 Pulse Oximetry 94 96 BMI result Body Mass Index 21.7 Labs Results: 08/30/21 09:06 09/07/21 08:00 Labs: Laboratory Results - last 48 hr 09/06/21 09/06/21 09/06/21 07:53 12:43 17:39 Creatinine Estim Creat Clear Calc Estimated GFR POC Glucose 231 H 226 H 190 H 09/06/21 09/07/21 09/07/21 21:30 08:00 08:45 Creatinine 0.74 Estim Creat Clear Calc 72.4 Estimated GFR > 60 POC Glucose 200 H 230 H 09/07/21 09/07/21 09/07/21 12:48 17:29 20:45 Creatinine Estim Creat Clear Calc Estimated GFR POC Glucose 278 H 188 H 283 H Medications Medications Current Medications Acetaminophen (Acetaminophen 325 Mg Tablet) 650 mg PO Q6H PRN PRN Reason: Headache/Pain Mild Scale (1-3) Last Admin: 09/01/21 15:58 Dose: 650 mg Documented by: Al Hydroxide/Mg Hydroxide (Magnesium Hydrox/Alum Hydrox 30 Ml Oral.Susp) 30 ml PO Q6H PRN PRN Reason: Heartburn/Nausea Last Admin: 09/05/21 14:33 Dose: 30 ml Documented by: Amlodipine Besylate (Amlodipine Besylate 10 Mg Tablet) 10 mg PO DAILY [facility]; Protocol Last Admin: 09/07/21 09:00 Dose: 10 mg Documented by: Aspirin (Aspirin Enteric Coated 81 Mg Tablet.) 81 mg PO DAILY [facility] Last Admin: 09/07/21 09:00 Dose: 81 mg Documented by: Atorvastatin Calcium (Atorvastatin Calcium 80 Mg Tablet) 80 mg PO BEDTIME [facility] Last Admin: 09/07/21 21:00 Dose: 80 mg Documented by: Carbamazepine (Carbamazepine Er 200 Mg Tab.Er.12h) 200 mg PO DAILY [facility] Last Admin: 09/07/21 09:01 Dose: 200 mg Documented by: Carbamazepine (Carbamazepine Er 200 Mg Tab.Er.12h) 400 mg PO BEDTIME [facility] Last Admin: 09/07/21 21:00 Dose: 400 mg Documented by: Clonidine HCl (Clonidine Hcl 0.1 Mg Tablet) 0.1 mg PO BID [facility]; Protocol Last Admin: 09/07/21 21:00 Dose: 0.1 mg Documented by: Docusate Sodium (Docusate Sodium 100 Mg Capsule) 100 mg PO DAILY PRN PRN Reason: Constipation Glucose (Glucose Gel 15 Gm Gel..Gram.) 15 gm PO Q15M PRN; Protocol PRN Reason: per Hypoglycemia Standing Ord. Hydroxyzine HCl (Hydroxyzine Hcl 25 Mg Tablet) 25 mg PO BEDTIME PRN PRN Reason: Anxiety Last Admin: 08/27/21 21:48 Dose: 25 mg Documented by: Hydroxyzine HCl (Hydroxyzine Hcl 25 Mg Tablet) 25 mg PO BEDTIME PRN PRN Reason: Anxiety Insulin Glargine (Insulin Glargine,Hum.Rec.Anlog 100 Unit/Ml 10 Ml Vial) 12 unit SUBCUT DAILY [facility] Last Admin: 09/07/21 08:57 Dose: 12 unit Documented by: Insulin Human Lispro (Insulin Lispro 100 Unit/Ml 3 Ml Vial) 0 unit SUBCUT QIDACHS [facility]; Protocol Last Admin: 09/07/21 20:58 Dose: 6 unit Documented by: Lisinopril (Lisinopril 10 Mg Tablet) 10 mg PO DAILY [facility]; Protocol Last Admin: 09/07/21 09:01 Dose: 10 mg Documented by: Magnesium Hydroxide (Milk Of Magnesia 30 Ml Oral.Susp) 30 ml PO DAILY PRN PRN Reason: Constipation Last Admin: 09/02/21 17:57 Dose: 30 ml Documented by: Metformin HCl (Metformin Hcl Er 750 Mg Tab.Er.24h) 1,500 mg PO BEDTIME [facility] Last Admin: 09/07/21 22:50 Dose: Not Given Documented by: Olanzapine (Olanzapine Odt 10 Mg Tab.Rapdis) 10 mg TRANSLINGU Q6H PRN PRN Reason: agitation Last Admin: 09/07/21 11:04 Dose: 10 mg Documented by: Olanzapine (Olanzapine Odt 10 Mg Tab.Rapdis) 10 mg TRANSLINGU TID [facility] Last Admin: 09/07/21 21:00 Dose: 10 mg Documented by: Trazodone HCl (Trazodone Hcl 100 Mg Tablet) 100 mg PO BEDTIME PRN PRN Reason: Insomnia Last Admin: 09/07/21 21:00 Dose: 100 mg Documented by: Allergies Allergies Allergy/AdvReac Type Severity Reaction Status Date / Time No Known Allergies Allergy Verified 08/21/21 18:57 Assessment & Plan Assessment & Plan (1) Bipolar 1 disorder: Status: Acute Code(s): F31.9 - Bipolar disorder, unspecified (2) Seizure disorder: Code(s): G40.909 - Epilepsy, unspecified, not intractable, without status epilepticus Plan Ms. Alejandre is a 56 year-old woman with hx of Bipolar disorder who was brought via EMS to [facility]. She was initially admitted medically for AMS, MRI did not show acute or subacute pathology, although pt does have chronic encephalomalacia of the left hemisphere and mild underlying microangiopathy. Utox was negative. E EG showed right fronto temporal abnormality with tendency for partial seizure disorder. Pt started on cabamazepine for mood and seizure treatment. PLAN 1. Admit to M3, Sect 12, 15 mins checks for safety 2. Continue Carbamazepine 200mg po daily and 400mg po qhs 3. Continue Olanzapine zydis 10mg po TID on 08/27/21, prn for agitation. 4. Called HCP Randa [phone] no answer - still we have not reach out to any family members 5. Obtain collateral information 6. Aftercare planning. 08/31: Ct plan. No med changes I spent minutes with the patient and/or on the patient floor today, greater than?50% of which was spent counseling/coordinating care. Patient educated on: medical condition Reason for contiued inpatient stay Substantial Risk for: inability to function and rapid decompensation
[2021-09-07 17:33] LABS: Glucose, Whole Blood 188 mg/dL (60-115)
[2021-09-07 20:51] LABS: Glucose, Whole Blood 283 mg/dL (60-115)
[2021-09-07 21:00] VITALS: BP 133/67; PULSE 83; RESP 18; TEMP 36.6; O2SAT 96
[2021-09-07] MEDS: Atorvastatin Calcium 80 MG TABLET PO (21:00)
[2021-09-07] MEDS: traZODone HCL 100 MG TABLET PO (21:00)
[2021-09-07] MEDS: carBAMazepine ER 200 MG TAB.ER.12H 400 MG PO (21:00)
[2021-09-08 08:38] LABS: Glucose, Whole Blood 345 mg/dL (60-115)
[2021-09-08] MEDS: Insulin Glargine,Hum.rec.anlog 100 UNIT/ML 10 ML VIAL 12 UNIT SUBCUT (08:46)
[2021-09-08] MEDS: Insulin Lispro 100 UNIT/ML 3 ML VIAL SUBCUT ×4 (08:46→21:52)
[2021-09-08] MEDS: amLODIPine Besylate 10 MG TABLET PO (08:47)
[2021-09-08] MEDS: Aspirin Enteric Coated 81 MG TABLET.DR PO (08:48)
[2021-09-08] MEDS: carBAMazepine ER 200 MG TAB.ER.12H PO (08:48)
[2021-09-08] MEDS: lisinopriL 10 MG TABLET PO (08:49)
[2021-09-08] MEDS: cloNIDine HCL 0.1 MG TABLET PO ×2 (08:49→21:50)
[2021-09-08] MEDS: OLANZapine ODT 10 MG TAB.RAPDIS TRANSLINGU ×3 (08:49→21:50)
[2021-09-08 09:02] VITALS: BP 169/71; PULSE 80; RESP 16; TEMP 36.6; O2SAT 98
--- NOTE | 2021-09-08 12:28 | HO.PSYCHPN ---
Subjective Subjective Date of Service: 09/08/21 Reason For Visit: antonio Interim History: Pt continues to present as pleasant and excited for the possibility of leaving on Thursday and not having to go to court per her report. Thought process more organized, although suspect underlying cognitive impairments. Pt reports eating well. She told a nurse she was afraid to sleep at night but was able to sleep. She is saddened by of mother about one year ago. She is optimisitc about going back to apartment and working with [employer] worker to find housing prior to her lease expiring end of the month. Pt taking medications. reports GI side effects with metformin in past - discussed switching to ER formulation. No behavioral concerns. Pt in agreement to referral to VNA, C[facility] worker, psych tx. She denies SI/HI. She is less suspicious. Review of Systems Constitutional: Reports weight loss Cardiovascular: Denies chest pain, Denies rapid heart rate and Denies irregular heart rhythm Mental Status Exam Mental Status Exam Narrative: Appearance: thin, short hair, casually groomed, fair hygiene in NAD Behavior:much calmer, somewhat guarded and mildly irritated with this technical report writer at times psychomotor: no agitation Speech:more clear, less hyperverbal, spontaneous Thought process:more organized but some loose association still present Thought content:some suspiciousness and mistrust towards father, doctors, looking to get better, some awareness that mentally not doing well and needing help with making decisions Mood: good Affect: less labile SI:denies HI:denies VH/AH:none Delusions:less suspiciousness Insight/judgment:impaired x 2. Memory/cog: alert, oriented to year, month, not to situation. severely impaired otherwise to meet minimal demands to care for self. may do MOCA once psychiatrically more stable as suspect underlying neurocognitive disorder. Patient Appearance: Disheveled Patient Orientation: Place Level of Consciousness: Awake Patient Behavior: Guarded, Talkative and Invasion - Personal Space Affect Description: Suspicious Speech Pattern: Animated and Loud Diagnostics Vital Signs (24Hr): Vital Signs - 24 hr 09/07/21 21:00 09/08/21 09:02 Temperature 97.9 F 98 F Pulse Rate 83 80 Respiratory Rate 18 16 Blood Pressure 133/67 169/71 H Pulse Oximetry 96 98 BMI result Body Mass Index 21.7 Labs Results: 08/30/21 09:06 09/07/21 08:00 Labs: Laboratory Results - last 48 hr 09/06/21 09/06/21 09/06/21 12:43 17:39 21:30 Creatinine Estim Creat Clear Calc Estimated GFR POC Glucose 226 H 190 H 200 H 09/07/21 09/07/21 09/07/21 08:00 08:45 12:48 Creatinine 0.74 Estim Creat Clear Calc 72.4 Estimated GFR > 60 POC Glucose 230 H 278 H 09/07/21 09/07/21 09/08/21 17:29 20:45 08:33 Creatinine Estim Creat Clear Calc Estimated GFR POC Glucose 188 H 283 H 345 H Medications Medications Current Medications Acetaminophen (Acetaminophen 325 Mg Tablet) 650 mg PO Q6H PRN PRN Reason: Headache/Pain Mild Scale (1-3) Last Admin: 09/01/21 15:58 Dose: 650 mg Documented by: Al Hydroxide/Mg Hydroxide (Magnesium Hydrox/Alum Hydrox 30 Ml Oral.Susp) 30 ml PO Q6H PRN PRN Reason: Heartburn/Nausea Last Admin: 09/05/21 14:33 Dose: 30 ml Documented by: Amlodipine Besylate (Amlodipine Besylate 10 Mg Tablet) 10 mg PO DAILY [facility]; Protocol Last Admin: 09/08/21 08:47 Dose: 10 mg Documented by: Aspirin (Aspirin Enteric Coated 81 Mg Tablet.) 81 mg PO DAILY [facility] Last Admin: 09/08/21 08:48 Dose: 81 mg Documented by: Atorvastatin Calcium (Atorvastatin Calcium 80 Mg Tablet) 80 mg PO BEDTIME [facility] Last Admin: 09/07/21 21:00 Dose: 80 mg Documented by: Carbamazepine (Carbamazepine Er 200 Mg Tab.Er.12h) 200 mg PO DAILY [facility] Last Admin: 09/08/21 08:48 Dose: 200 mg Documented by: Carbamazepine (Carbamazepine Er 200 Mg Tab.Er.12h) 400 mg PO BEDTIME [facility] Last Admin: 09/07/21 21:00 Dose: 400 mg Documented by: Clonidine HCl (Clonidine Hcl 0.1 Mg Tablet) 0.1 mg PO BID [facility]; Protocol Last Admin: 09/08/21 08:49 Dose: 0.1 mg Documented by: Docusate Sodium (Docusate Sodium 100 Mg Capsule) 100 mg PO DAILY PRN PRN Reason: Constipation Glucose (Glucose Gel 15 Gm Gel..Gram.) 15 gm PO Q15M PRN; Protocol PRN Reason: per Hypoglycemia Standing Ord. Hydroxyzine HCl (Hydroxyzine Hcl 25 Mg Tablet) 25 mg PO BEDTIME PRN PRN Reason: Anxiety Last Admin: 08/27/21 21:48 Dose: 25 mg Documented by: Hydroxyzine HCl (Hydroxyzine Hcl 25 Mg Tablet) 25 mg PO BEDTIME PRN PRN Reason: Anxiety Insulin Glargine (Insulin Glargine,Hum.Rec.Anlog 100 Unit/Ml 10 Ml Vial) 12 unit SUBCUT DAILY [facility] Last Admin: 09/08/21 08:46 Dose: 12 unit Documented by: Insulin Human Lispro (Insulin Lispro 100 Unit/Ml 3 Ml Vial) 0 unit SUBCUT QIDACHS [facility]; Protocol Last Admin: 09/08/21 08:46 Dose: 8 unit Documented by: Lisinopril (Lisinopril 10 Mg Tablet) 10 mg PO DAILY [facility]; Protocol Last Admin: 09/08/21 08:49 Dose: 10 mg Documented by: Magnesium Hydroxide (Milk Of Magnesia 30 Ml Oral.Susp) 30 ml PO DAILY PRN PRN Reason: Constipation Last Admin: 09/02/21 17:57 Dose: 30 ml Documented by: Metformin HCl (Metformin Hcl Er 750 Mg Tab.Er.24h) 1,500 mg PO BEDTIME [facility] Last Admin: 09/07/21 22:50 Dose: Not Given Documented by: Olanzapine (Olanzapine Odt 10 Mg Tab.Rapdis) 10 mg TRANSLINGU Q6H PRN PRN Reason: agitation Last Admin: 09/07/21 11:04 Dose: 10 mg Documented by: Olanzapine (Olanzapine Odt 10 Mg Tab.Rapdis) 10 mg TRANSLINGU TID [facility] Last Admin: 09/08/21 08:49 Dose: 10 mg Documented by: Trazodone HCl (Trazodone Hcl 100 Mg Tablet) 100 mg PO BEDTIME PRN PRN Reason: Insomnia Last Admin: 09/07/21 21:00 Dose: 100 mg Documented by: Allergies Allergies Allergy/AdvReac Type Severity Reaction Status Date / Time No Known Allergies Allergy Verified 08/21/21 18:57 Assessment & Plan Assessment & Plan (1) Bipolar 1 disorder: Status: Acute Code(s): F31.9 - Bipolar disorder, unspecified (2) Seizure disorder: Code(s): G40.909 - Epilepsy, unspecified, not intractable, without status epilepticus Plan Ms. Alejandre is a 56 year-old woman with hx of Bipolar disorder who was brought via EMS [place] [facility] [place] [facility] She was initially admitted medically for AMS, MRI did not show acute or subacute pathology, although pt does have chronic encephalomalacia of the left hemisphere and mild underlying microangiopathy. Utox was negative. EEG showed right fronto temporal abnormality with tendency for partial seizure disorder. Pt started on cabamazepine for mood and seizure treatment. PLAN 1. Admit to M3, Sect 12, 15 mins checks for safety 2. Continue Carbamazepine 200mg po daily and 400mg po qhs 3. Continue Olanzapine zydis 10mg po TID on 08/27/21, prn for agitation. 4. Called HCP Ranad [phone] no answer - still we have not reach out to any family members 5. Obtain collateral information 6. Aftercare planning. 08/31: Ct plan. No med changes I spent minutes with the patient and/or on the patient floor today, greater than?50% of which was spent counseling/coordinating care. Patient educated on: medication risk/benefits Reason for contiued inpatient stay Substantial Risk for: inability to function and rapid decompensation
[2021-09-08 13:04] LABS: Glucose, Whole Blood 233 mg/dL (60-115)
[2021-09-08] MEDS: Milk of Magnesia 30 ML ORAL.SUSP PO (15:46)
[2021-09-08] MEDS: Docusate Sodium 100 MG CAPSULE PO (16:54)
[2021-09-08 17:08] LABS: Glucose, Whole Blood 164 mg/dL (60-115)
[2021-09-08 21:43] VITALS: BP 112/62; PULSE 80; TEMP 36.2; O2SAT 95
[2021-09-08 21:45] LABS: Glucose, Whole Blood 325 mg/dL (60-115)
[2021-09-08] MEDS: metFORMIN HCl ER 750 MG TAB.ER.24H 1500 MG PO (21:50)
[2021-09-08] MEDS: Atorvastatin Calcium 80 MG TABLET PO (21:50)
[2021-09-08] MEDS: carBAMazepine ER 200 MG TAB.ER.12H 400 MG PO (21:50)
[2021-09-08] MEDS: traZODone HCL 100 MG TABLET PO (22:01)
[2021-09-09 08:21] LABS: Glucose, Whole Blood 213 mg/dL (60-115)
[2021-09-09] MEDS: cloNIDine HCL 0.1 MG TABLET PO ×2 (09:01→21:14)
[2021-09-09] MEDS: lisinopriL 10 MG TABLET PO (09:01)
[2021-09-09] MEDS: amLODIPine Besylate 10 MG TABLET PO (09:02)
[2021-09-09] MEDS: OLANZapine ODT 10 MG TAB.RAPDIS TRANSLINGU ×4 (09:02→21:17)
[2021-09-09] MEDS: carBAMazepine ER 200 MG TAB.ER.12H PO (09:02)
[2021-09-09] MEDS: Aspirin Enteric Coated 81 MG TABLET.DR PO (09:03)
[2021-09-09] MEDS: Insulin Glargine,Hum.rec.anlog 100 UNIT/ML 10 ML VIAL 12 UNIT SUBCUT (09:04)
[2021-09-09] MEDS: Insulin Lispro 100 UNIT/ML 3 ML VIAL SUBCUT ×4 (09:05→21:25)
[2021-09-09 10:21] VITALS: BP 110/78; PULSE 81; RESP 20; TEMP 36.5; O2SAT 95
[2021-09-09 12:04] LABS: Glucose, Whole Blood 307 mg/dL (60-115)
--- NOTE | 2021-09-09 14:08 | P.PNPSI_ITS ---
Subjective Subjective Date of Service: 09/09/21 Reason For Visit: antonio Subjective Notes: Section 7 Interim History: Pt reports she is sleeping and eating well. She reports mood is good. She is more organized. She does not appear internally preoccupied. Not labile. She is in agreement to continue OP tx and to have VNA services. She denies SI/HI/ No VH/AH. No behavioral concerns. Medication Compliance: Yes Side effects from medications: No Attending Groups: Yes Review of Systems Constitutional: Reports weight loss Cardiovascular: Denies chest pain, Denies rapid heart rate and Denies irregular heart rhythm Mental Status Exam Mental Status Exam Narrative: Appearance: thin, short hair, casually groomed, fair hygiene in NAD Behavior:much calmer, somewhat guarded and mildly irritated with this video game script writer at times psychomotor: no agitation Speech:more clear, less hyperverbal, spontaneous Thought process:more organized but some loose association still present Thought content:some suspiciousness and mistrust towards father, doctors, looking to get better, some awareness that mentally not doing well and needing help with making decisions Mood: good Affect: less labile SI:denies HI:denies VH/AH:none Delusions:less suspiciousness Insight/judgment:impaired x 2. Memory/cog: alert, oriented to year, month, not to situation. severely impaired otherwise to meet minimal demands to care for self. may do MOCA once psychiatrically more stable as suspect underlying neurocognitive disorder. Diagnostics Vital Signs (24Hr): Vital Signs - 24 hr 09/08/21 21:43 09/09/21 10:21 Temperature 97.2 F 97.7 F Pulse Rate 80 81 Respiratory Rate 20 Blood Pressure 112/62 110/78 Pulse Oximetry 95 95 BMI result Body Mass Index 21.7 Labs Results: 08/30/21 09:06 09/07/21 08:00 Labs: Laboratory Results - last 48 hr 09/07/21 09/07/21 09/08/21 17:29 20:45 08:33 POC Glucose 188 H 283 H 345 H 09/08/21 09/08/21 09/08/21 12:58 17:03 21:41 POC Glucose 233 H 164 H 325 H 09/09/21 09/09/21 08:17 12:00 POC Glucose 213 H 307 H Medications Medications Current Medications Acetaminophen (Acetaminophen 325 Mg Tablet) 650 mg PO Q6H PRN PRN Reason: Headache/Pain Mild Scale (1-3) Last Admin: 09/01/21 15:58 Dose: 650 mg Documented by: Al Hydroxide/Mg Hydroxide (Magnesium Hydrox/Alum Hydrox 30 Ml Oral.Susp) 30 ml PO Q6H PRN PRN Reason: Heartburn/Nausea Last Admin: 09/05/21 14:33 Dose: 30 ml Documented by: Amlodipine Besylate (Amlodipine Besylate 10 Mg Tablet) 10 mg PO DAILY [facility]; Protocol Last Admin: 09/09/21 09:02 Dose: 10 mg Documented by: Aspirin (Aspirin Enteric Coated 81 Mg Tablet.) 81 mg PO DAILY [facility] Last Admin: 09/09/21 09:03 Dose: 81 mg Documented by: Atorvastatin Calcium (Atorvastatin Calcium 80 Mg Tablet) 80 mg PO BEDTIME [facility] Last Admin: 09/08/21 21:50 Dose: 80 mg Documented by: Carbamazepine (Carbamazepine Er 200 Mg Tab.Er.12h) 200 mg PO DAILY [facility] Last Admin: 09/09/21 09:02 Dose: 200 mg Documented by: Carbamazepine (Carbamazepine Er 200 Mg Tab.Er.12h) 400 mg PO BEDTIME [facility] Last Admin: 09/08/21 21:50 Dose: 400 mg Documented by: Clonidine HCl (Clonidine Hcl 0.1 Mg Tablet) 0.1 mg PO BID [facility]; Protocol Last Admin: 09/09/21 09:01 Dose: 0.1 mg Documented by: Docusate Sodium (Docusate Sodium 100 Mg Capsule) 100 mg PO DAILY PRN PRN Reason: Constipation Last Admin: 09/08/21 16:54 Dose: 100 mg Documented by: Glucose (Glucose Gel 15 Gm Gel..Gram.) 15 gm PO Q15M PRN; Protocol PRN Reason: per Hypoglycemia Standing Ord. Hydroxyzine HCl (Hydroxyzine Hcl 25 Mg Tablet) 25 mg PO BEDTIME PRN PRN Reason: Anxiety Last Admin: 08/27/21 21:48 Dose: 25 mg Documented by: Hydroxyzine HCl (Hydroxyzine Hcl 25 Mg Tablet) 25 mg PO BEDTIME PRN PRN Reason: Anxiety Insulin Glargine (Insulin Glargine,Hum.Rec.Anlog 100 Unit/Ml 10 Ml Vial) 12 unit SUBCUT DAILY [facility] Last Admin: 09/09/21 09:04 Dose: 12 unit Documented by: Insulin Human Lispro (Insulin Lispro 100 Unit/Ml 3 Ml Vial) 0 unit SUBCUT QIDACHS [facility]; Protocol Last Admin: 09/09/21 12:48 Dose: 8 unit Documented by: Lisinopril (Lisinopril 10 Mg Tablet) 10 mg PO DAILY [facility]; Protocol Last Admin: 09/09/21 09:01 Dose: 10 mg Documented by: Magnesium Hydroxide (Milk Of Magnesia 30 Ml Oral.Susp) 30 ml PO DAILY PRN PRN Reason: Constipation Last Admin: 09/08/21 15:46 Dose: 30 ml Documented by: Metformin HCl (Metformin Hcl Er 750 Mg Tab.Er.24h) 1,500 mg PO BEDTIME [facility] Last Admin: 09/08/21 21:50 Dose: 1,500 mg Documented by: Olanzapine (Olanzapine Odt 10 Mg Tab.Rapdis) 10 mg TRANSLINGU Q6H PRN PRN Reason: agitation Last Admin: 09/07/21 11:04 Dose: 10 mg Documented by: Olanzapine (Olanzapine Odt 10 Mg Tab.Rapdis) 10 mg TRANSLINGU TID [facility] Last Admin: 09/09/21 09:02 Dose: 10 mg Documented by: Trazodone HCl (Trazodone Hcl 100 Mg Tablet) 100 mg PO BEDTIME PRN PRN Reason: Insomnia Last Admin: 09/08/21 22:01 Dose: 100 mg Documented by: Allergies Allergies Allergy/AdvReac Type Severity Reaction Status Date / Time No Known Allergies Allergy Verified 08/21/21 18:57 Assessment & Plan Assessment & Plan (1) Bipolar 1 disorder: Status: Acute Code(s): F31.9 - Bipolar disorder, unspecified (2) Seizure disorder: Code(s): G40.909 - Epilepsy, unspecified, not intractable, without status epilepticus Plan Ms. Alejandre is a 56 year-old woman with hx of Bipolar disorder who was brought via EMS [place] [facility]. She was initially admitted medically for AMS, MRI did not show acute or subacute pathology, although pt does have chronic encephalomalacia of the left hemisphere and mild underlying microangiopathy. Utox was negative. EEG showed right fronto temporal abnormality with tendency for partial seizure d isorder. Pt started on cabamazepine for mood and seizure treatment. PLAN 1. Admit to M3, Sect 12, 15 mins checks for safety 2. Continue Carbamazepine 200mg po daily and 400mg po qhs 3. Continue Olanzapine zydis 10mg po TID on 08/27/21, prn for agitation. 4. Called HCP Randa [phone] no answer - still we have not reach out to any family members 5. Obtain collateral information 6. Aftercare planning. 08/31: Ct plan. No med changes I spent minutes with the patient and/or on the patient floor today, greater than?50% of which was spent counseling/coordinating care. Reason for contiued inpatient stay Substantial Risk for: stable for discharge
[2021-09-09 17:33] LABS: Glucose, Whole Blood 193 mg/dL (60-115)
[2021-09-09 21:12] LABS: Glucose, Whole Blood 240 mg/dL (60-115)
[2021-09-09] MEDS: metFORMIN HCl ER 750 MG TAB.ER.24H 1500 MG PO (21:14)
[2021-09-09 21:15] VITALS: BP 100/58; PULSE 96; RESP 17; TEMP 36.3; O2SAT 95
[2021-09-09] MEDS: Atorvastatin Calcium 80 MG TABLET PO (21:17)
[2021-09-09] MEDS: carBAMazepine ER 200 MG TAB.ER.12H 400 MG PO (21:17)
--- NOTE | 2021-09-10 05:48 | PC.NURSE ---
Scanned carbamazepine as daily, but corrected and scanned two tabs for HS dose of 400mg. Daily dose undone by RN.
[2021-09-10 08:10] LABS: Glucose, Whole Blood 228 mg/dL (60-115)
[2021-09-10] MEDS: Insulin Lispro 100 UNIT/ML 3 ML VIAL SUBCUT (08:27)
[2021-09-10] MEDS: amLODIPine Besylate 10 MG TABLET PO (08:28)
[2021-09-10] MEDS: Insulin Glargine,Hum.rec.anlog 100 UNIT/ML 10 ML VIAL 12 UNIT SUBCUT (08:28)
[2021-09-10] MEDS: Aspirin Enteric Coated 81 MG TABLET.DR PO (08:28)
[2021-09-10] MEDS: OLANZapine ODT 10 MG TAB.RAPDIS TRANSLINGU (08:28)
[2021-09-10] MEDS: cloNIDine HCL 0.1 MG TABLET PO (08:29)
[2021-09-10] MEDS: lisinopriL 10 MG TABLET PO (08:29)
[2021-09-10] MEDS: carBAMazepine ER 200 MG TAB.ER.12H PO (08:29)
--- NOTE | 2021-09-10 09:29 | PM.PSYDC ---
DS: Providers Provider Date of Service: 09/10/21 Date of admission: 08/25/21 14:18 Date of discharge: 09/10/21 Primary care physician: Unknown Physician Attending physician on discharge: José Miguel [place] DS: Diagnosis Discharge Diagnosis (1) Bipolar 1 disorder: Status: Acute (2) Seizure disorder: DS: Medications Discharge Medications Home Medications: Previous Rx's Medication Instructions Recorded amlodipine 10 mg tablet 10 mg PO DAILY #30 tab 09/10/21 aspirin 81 mg tablet,delayed 81 mg PO DAILY #30 tab 09/10/21 release atorvastatin 80 mg tablet 80 mg PO BEDTIME #30 tab 09/10/21 carbamazepine 200 mg 200 mg PO DAILY #30 tab 09/10/21 tablet,extended release,12 hr carbamazepine 400 mg 400 mg PO BEDTIME #30 tab 09/10/21 tablet,extended release,12 hr clonidine HCl 0.1 mg tablet 0.1 mg PO BID #60 tab 09/10/21 dextrose 40 % oral gel (Glutose-15) 15 g PO Q15M PRN #12.5 g 09/10/21 docusate sodium 100 mg capsule 100 mg PO DAILY PRN #30 cap 09/10/21 insulin admin supplies #1 ea 09/10/21 insulin glargine 100 unit/mL 12 unit (0.12 mL) SUBCUT DAILY #10 09/10/21 subcutaneous solution (Lantus ml U-100 Insulin) insulin lispro 100 unit/mL See Protocol SUBCUT QIDACHS #10 ml 09/10/21 subcutaneous solution (Humalog U-100 Insulin) lisinopril 10 mg tablet 10 mg PO DAILY #30 tab 09/10/21 metformin 750 mg tablet,extended 1,500 mg PO BEDTIME #60 tab 09/10/21 release 24 hr olanzapine 15 mg disintegrating 15 mg TRANSLINGUAL BID #60 tab 09/10/21 tablet trazodone 100 mg tablet 100 mg PO BEDTIME PRN #30 tab 09/10/21 Mental Status Exam Mental Status Exam Narrative: Appearance: thin, short hair, casually groomed, fair hygiene in NAD Behavior:cooperative, calmer psychomotor: no agitation no retardation. No EPS. Speech:clear, normal rate/rhythm/volume, spontaneous Thought process:some tangentiality noted but no loose associations Thought content:no signs of psychosis, looking forward to return home with services Mood: good Affect: brighter non labile SI:denies HI:denies VH/AH:none Delusions:none Insight/judgment:improving x 2. Memory/cog: alert, oriented x 3. Data Data Completed and Pending Completed studies during hospitalization [Text1]: 09/03/21 09/03/21 09/03/21 12:31 17:46 20:18 Creatinine Estim Creat Clear Calc Estimated GFR POC Glucose 154 H 187 H 346 H Carbamazepine 09/04/21 09/04/21 09/04/21 07:53 08:15 12:44 Creatinine Estim Creat Clear Calc Estimated GFR POC Glucose 309 H 117 H Carbamazepine 8.3 09/04/21 09/04/21 09/05/21 17:46 21:20 09:10 Creatinine Estim Creat Clear Calc Estimated GFR POC Glucose 221 H 242 H 225 H Carbamazepine 09/05/21 09/05/21 09/05/21 12:28 17:47 21:07 Creatinine Estim Creat Clear Calc Estimated GFR POC Glucose 216 H 194 H 263 H Carbamazepine 09/06/21 09/06/21 09/06/21 00:53 07:53 12:43 Creatinine Estim Creat Clear Calc Estimated GFR POC Glucose 149 H 231 H 226 H Carbamazepine 09/06/21 09/06/21 09/07/21 17:39 21:30 08:00 Creatinine 0.74 Estim Creat Clear Calc 72.4 Estimated GFR > 60 POC Glucose 190 H 200 H Carbamazepine 09/07/21 09/07/21 09/07/21 08:45 12:48 17:29 Creatinine Estim Creat Clear Calc Estimated GFR POC Glucose 230 H 278 H 188 H Carbamazepine 09/07/21 09/08/21 09/08/21 20:45 08:33 12:58 Creatinine Estim Creat Clear Calc Estimated GFR POC Glucose 283 H 345 H 233 H Carbamazepine 09/08/21 09/08/21 09/09/21 17:03 21:41 08:17 Creatinine Estim Creat Clear Calc Estimated GFR POC Glucose 164 H 325 H 213 H Carbamazepine 09/09/21 09/09/21 09/09/21 12:00 17:29 21:08 Creatinine Estim Creat Clear Calc Estimated GFR POC Glucose 307 H 193 H 240 H Carbamazepine 09/10/21 08:06 Creatinine Estim Creat Clear Calc Estimated GFR POC Glucose 228 H Carbamazepine DS: Summary Hospital Course Hospital Course: Ms. Alejandre is a 56 year-old woman with unclear psychiatric/medical hx as pt presents as disorganized and poor historian. Pt was brought via EMS to [facility] ED on 08/21. She appeared confused, initially somnolent with few coherent words. Her labs (CBC; CMP; Lipid panel) in ED mostly unremarkable (low potassium). Her utox was negative. She had head CT that showed decrease billings to white matter differentiation and hypoattenuation of the parenchyma in the right occipital lobe. MRI did not reveal acute or subacute cerebral ischemia; basal ganglia mineralization, chronic encephalomalacia of the left cerebellar hemisphere and mild underlying microangiopathy. Pt had EEG that showed right fronto temporal abnormality and tendency for partial seizure disorder with recommendation from neurology to start either depakote or keppra. Ms. Alejandre was admitted to medical floor from 08/21-08/25. She was also seen by psychiatry while on medical floor and started on Carbamazepine for both mood and possible seizure control. On the unit, pt present is hyperverbal but with no psychomotor agitation or retardation noted. Pt able to report that she is in [place]. She is not able to verbalize reason for hospitalization but does state she needs her brain to work better. Her speech and thought process is large disorganized and accuracy of information provided is questionable. Pt reports having iodine imbalances for which she reports taking risperidone in the past. Pt reports father not legally with her mother and that no one in her family can take another mental break. Pt does note that she has difficulty making medical and other decisions for herself and states needs her HCP to make this decisions for her. She reports she is here because she had problems with refrigerator. She reports hx of bipolar disorder, but this information has not been confirmed. Pt reports fair sleep. Pt asks this telegraphic typewriter mechanic if we can find her housing situation just like this place. She denies SI/HI. When asked about VH/AH, pt talks about her father and that he was not legally with her mother. In the chart, there is HCP form completed- Randa is identified as her HCP. This telegraphic typewriter mechanic called Randa but unable to reach anyone for further collateral information. Past Psychiatric History: Unclear, she reported that she carries the diagnosis of bipolar disorder ? HOSPITAL COURSE On the unit, pt was admitted on a Section 12b, placed on 15 minutes checks for safety. Pt presented as disorganized, irritable, intrusive with peers. Her thought process was very disorganized and difficult to follow. Her thought content had themes of paranoid delusions towards family and mistrust of staff and medications and moravian preoccupations. After discussing risks, benefits and alternative treatment options, pt reported she had been on carbamazepine with good effect. She declined medications such as depakote or lithium. Note that while in the medical floor, pt seen by neurology who reports pt prone to complex partial seizures and carbamazepine could be used for both mood and this specific seizure disorder. Pt also agreed to start Olanzapine, which she tolerated well and was titrated to 30mg po daily. Her affect gradually presented as much less labile, less intrusive. Her thought process was much more organized and coherent. She was able to provide accurate information about her cousin who is closest relative to her and her HCP. Pt presented as much less suspicious and less paranoid. She was sleeping and eating through the night. She was appropriate in groups and social with peers. There were no need for restraint, although initially she had incidents of intrusiveness that required redirection. Collateral information gathered from her cousin Willa- who has been in communication with pt and reported that she appears in much improved condition and close to baseline. Ms. Saxena denies SI/HI. No signs of aggression towards self or others. She shows increase insight in that she reports need to continue psychiatric treatment and follow up with PCP. She agreed to have VNA services and [facility] to help with housing as she has to move out in one month. She did not appear internally preoccupied at time of discharge. Status at Discharge Cognitive/behavioral status at discharge: Pt with brighter, non labile mood. No SI/HI. No VH/AH. Sleeping and eating well. No signs of aggression towards self or others. She is future oriented in that she is looking forward to continue OP psychiatric treatment as well to follow up with her PCP for DM and HTN. Functional status at discharge: independent ambulation Overall status at discharge: patient is progressing back to baseline Time Spent with Patient Time attestation: Total time spent providing and/or coordinating discharge services: Time spent: Greater than 30 minutes Discharge Plan Discharge Patient Disposition: Home, Self-Care Discharge Diagnosis: Bipolar 1 Disorder, manic episode Referrals: [facility] - Community Support Program [Other] - 1 Week (You have been referred to the [facility] program. Someone should be following up with you. If you do not hear from anyone in a day or two after discharge, please call the phone number listed above and inquire about your referral) Cherelle HOPKINSA [Other] - 1 Week (VNA will corn picker your medications and will have first visit on Thursday09.11.21) Nayana Holley (Therapy) [Other] - 09/17/21 10:00 am (In Office Appointment) Madiha Queen (Psychiatry) [Other] - 10/07/21 9:20 am (Telehealth Appointment Your appointment will be over the phone. If you do not receive a call the day of your appointment, please call the phone number listed above for further information. ) Madiha Queen (Psychiatry) [Other] - 11/04/21 11:00 am (Telehealth Appointment Your appointment will take place over the phone. ) [facility] [Physician] - 1 Week Discharge Medications: New atorvastatin 80 mg Tablet 80 mg PO BEDTIME Qty: 30 1RF clonidine HCl 0.1 mg Tablet 0.1 mg PO BID Qty: 60 1RF Protocol: Hold for SBP< HOLD for SBP < : 90 aspirin 81 mg Tablet,Delayed Release (Dr/Ec) 81 mg PO DAILY Qty: 30 0RF carbamazepine 200 mg Tablet Extended Release 12 Hr 200 mg PO DAILY Qty: 30 1RF amlodipine 10 mg Tablet 10 mg PO DAILY Qty: 30 1RF Protocol: Hold for SBP< HOLD for SBP < : 90 lisinopril 10 mg Tablet 10 mg PO DAILY Qty: 30 1RF Protocol: Hold for SBP< HOLD for SBP < : 90 carbamazepine 400 mg tablet extended release 12 hr 400 mg PO BEDTIME Qty: 30 0RF olanzapine 15 mg tablet,disintegrating 15 mg translingual BID Qty: 60 1RF Lantus U-100 Insulin 100 unit/mL Solution 12 unit subcut DAILY Qty: 10 1RF dextrose [Glutose-15] 40 % Gel 15 g PO Q15M PRN (Reason: Per Hypoglycemia Standing Ord.) Qty: 12.5 1RF Protocol: Glucose Gel Hypoglycemia Standing Order Protocol Text: For patients able to take PO (patient cooperative and able to swallow). Give Glucose Gel 15 gm PO for Blood Glucose (BG) < 70. Repeat BG every 15 min until BG > 70 x 3, if BG still < 70 and/or patient symptomatic repeat glucose gel or rapid acting carbohydrate. Notify MD if BG does not improve with treatment. trazodone 100 mg Tablet 100 mg PO BEDTIME PRN (Reason: Insomnia) Qty: 30 1RF docusate sodium 100 mg Capsule 100 mg PO DAILY PRN (Reason: Constipation) Qty: 30 1RF insulin lispro [Humalog U-100 Insulin] 100 unit/mL Solution See Protocol unit subcut QIDACHS Qty: 10 1RF Protocol: Insulin Correction Scale Less than or equal to 110 ---- Give (units): 0 111 to 150 Give (units): 0 151 to 200 Give (units): 2 201 to 250 Give (units): 4 251 to 300 Give (units): 6 301 to 350 Give (units): 8 Greater than 350 Give (units): 10 Call MD if Blood Glucose > : 350 metformin 750 mg Tablet Extended Release 24 Hr 1,500 mg PO BEDTIME Qty: 60 1RF (DME) insulin admin supplies Insulin Pen See Rx Instructions .Route Qty: 1 0RF Rx Instructions: As directed Discontinued metformin 500 mg tablet 2 tab PO BID 0RF Lantus U-100 Insulin 100 unit/mL solution 12 unit subcut QAM 0RF insulin aspart U-100 [Novolog U-100 Insulin aspart] 100 unit/mL solution See Protocol unit subcut TID 0RF Protocol: Insulin Correction Scale Less than or equal to 110 ---- Give (units): 0 111 to 150 Give (units): 0 151 to 200 Give (units): 2 201 to 250 Give (units): 4 251 to 300 Give (units): 6 301 to 350 Give (units): 8 Greater than 350 Give (units): 10 Call MD if Blood Glucose > : 350 atorvastatin 80 mg Tablet 80 mg PO BEDTIME 30 Days Qty: 30 0RF amlodipine 5 mg Tablet 5 mg PO DAILY 30 Days Qty: 30 0RF Protocol: Hold for SBP< HOLD for SBP < : 90 aspirin 81 mg Tablet,Delayed Release (Dr/Ec) 81 mg PO DAILY 30 Days Qty: 30 0RF carbamazepine 200 mg Tablet 200 mg PO BID 30 Days Qty: 60 0RF Discharge Orders: Discharge Order (Routine); Ordered 09/10/21 Ordered By: Meghna Salazar Diet: diabetic diet Activity on Discharge: As tolerated Stand Alone Forms: Patient Portal Discharge page Care Plan Goals: 1. Maintain mood 2. No SI/HI No labile mood No psychosis Health Concerns: Follow up with PCP Plan of Treatment: 1. Take medications as prescribed 2. Go to nearest ED or call 911 Assessment: Pt with brighter non labile no psychosis, less suspiciousness. NO SI/HI. No signs of aggression towards self or others.
--- NOTE | 2021-09-10 11:38 | PC.NURSE ---
Raiza is alert and fully oriented. Raiza denies thoughts of harming herself or others. She denies auditory or visual hallucinations but verbalizes some paranoid thought content. She reports good sleep, good appetite. She denies current physical complaint. Attempts to do patient teaching regarding meds and diabetes management were declined by patient. Raiza was able to verbalize knowledge of ways to access emergency services including crisis, 911 and ED.
== END 2021-09-10 11:30 | disposition home or self-care (01) | DRG 753 ==
PROVIDERS: Psychiatry & Neurology Psychiatry; Admitting Provider Psychiatry & Neurology Psychiatry; Visit Provider Social Worker
DX: F31.9 Bipolar disorder, unspecified (principal); G40.909 Epilepsy, unspecified, not intractable, without status epilepticus; Z87.891 Personal history of nicotine dependence; Z79.4 Long term (current) use of insulin; Z79.82 Long term (current) use of aspirin; Z79.84 Long term (current) use of oral hypoglycemic drugs; Z79.899 Other long term (current) drug therapy
CPT/HCPCS: 36415; 80053; 80076; 80156; 82565; 82947; 83036; 84443; 84484; 85025; 93005

== ENCOUNTER 2021-11-04 21:10 | Emergency (ER) | payer OTHER, SELFPAY ==
[2021-11-04 21:25] VITALS: BP 131/65; BP 162/92; PULSE 103; PULSE 96; RESP 16; TEMP 36.1; O2SAT 93; O2SAT 94; BMI 21.5
--- NOTE | 2021-11-04 21:33 | ED.PSYCH ---
HPI - Psych General Chief Complaint: General Medical <Estevan Riggs MD - Last Filed: 11/05/21 06:53> Stated Complaint: Anxiety <Estevan Riggs MD - Last Filed: 11/05/21 06:53> Time Seen by Provider: 11/04/21 21:33 <Estevan Riggs MD - Last Filed: 11/05/21 06:53> Source: patient <Estevan Riggs MD - Last Filed: 11/05/21 06:53> Mode of arrival: EMS <Estevan Riggs MD - Last Filed: 11/05/21 06:53> Limitations: no limitations <Estevan Riggs MD - Last Filed: 11/05/21 06:53> History of Present Illness HPI Narrative: Patient was concerned that she was not safe and did not have her zyprexa. Patient feels unsafe and unstable, she feels like she going to hurt someone. Patient states she is not sleeping <Estevan Rgigs MD - Last Filed: 11/05/21 06:53> MD complaint: feels depressed, anxiety and other (agitation) <Estevan Riggs MD - Last Filed: 11/05/21 06:53> Onset (ago): week(s) <Estevan Riggs MD - Last Filed: 11/05/21 06:53> Duration: constant <Estevan Riggs MD - Last Filed: 11/05/21 06:53> History of same: Yes <Estevan Riggs MD - Last Filed: 11/05/21 06:53> Exacerbating factors: other (not getting her medication) <Estevan Riggs MD - Last Filed: 11/05/21 06:53> Treatments prior to arrival: none <Estevan Riggs MD - Last Filed: 11/05/21 06:53> Related Data Home Medications: Home Medications Medication Instructions Recorded Confirmed olanzapine 15 mg tablet 1 tab PO BID 11/05/21 11/05/21 trazodone 100 mg tablet 150 mg PO BEDTIME PRN 11/05/21 11/05/21 Previous Rx's Medication Instructions Recorded amlodipine 10 mg tablet 10 mg PO DAILY #30 tab 09/10/21 aspirin 81 mg tablet,delayed 81 mg PO DAILY #30 tab 09/10/21 release atorvastatin 80 mg tablet 80 mg PO BEDTIME #30 tab 09/10/21 carbamazepine 200 mg 200 mg PO DAILY #30 tab 09/10/21 tablet,extended release,12 hr carbamazepine 400 mg 400 mg PO BEDTIME #30 tab 09/10/21 tablet,extended release,12 hr clonidine HCl 0.1 mg tablet 0.1 mg PO BID #60 tab 09/10/21 dextrose 40 % oral gel (Glutose-15) 15 g PO Q15M PRN #12.5 g 09/10/21 docusate sodium 100 mg capsule 100 mg PO DAILY PRN #30 cap 09/10/21 insulin admin supplies #1 ea 09/10/21 insulin glargine 100 unit/mL 12 unit (0.12 mL) SUBCUT DAILY #10 09/10/21 subcutaneous solution (Lantus ml U-100 Insulin) insulin lispro 100 unit/mL See Protocol SUBCUT QIDACHS #10 ml 09/10/21 subcutaneous solution (Humalog U-100 Insulin) lisinopril 10 mg tablet 10 mg PO DAILY #30 tab 09/10/21 metformin 750 mg tablet,extended 1,500 mg PO BEDTIME #60 tab 09/10/21 release 24 hr <Estevan Riggs MD - Last Filed: 11/05/21 06:53> Allergies/Adverse Reactions: Allergies Allergy/AdvReac Type Severity Reaction Status Date / Time No Known Allergies Allergy Verified 08/21/21 18:57 <Estevan Riggs MD - Last Filed: 11/05/21 06:53> Review of Systems Constitutional: Constitutional: Reports no additional constitutional complaints <Estevan Riggs MD - Last Filed: 11/05/21 06:53> Eyes: Eyes: Reports no additional eye complaints <Estevan Riggs MD - Last Filed: 11/05/21 06:53> ENT: Denies dizziness <Estevan Riggs MD - Last Filed: 11/05/21 06:53> Cardiovascular: Cardiovascular: Reports no additional cardiovascular complaints <Estevan Riggs MD - Last Filed: 11/05/21 06:53> Respiratory: Respiratory: Reports as per HPI <Estevan Riggs MD - Last Filed: 11/05/21 06:53> Gastrointestinal: Gastrointestinal: Reports no additional gastrointestinal complaints <Estevan Riggs MD - Last Filed: 11/05/21 06:53> Genitourinary: Genitourinary: Reports no additional female genitourinary complaints <Estevan Riggs MD - Last Filed: 11/05/21 06:53> Musculoskeletal: Musculoskeletal: Reports no additional musculoskeletal complaints <Estevan Riggs MD - Last Filed: 11/05/21 06:53> Integumentary/Breasts: Skin/Breast: Denies rash <Estevan Riggs MD - Last Filed: 11/05/21 06:53> Neurologic: Reports system reviewed and no additional complaints, except as documented, Denies dizziness and Denies Sensory deficit (Neuro) <Estevan Riggs MD - Last Filed: 11/05/21 06:53> Psychiatric: Psychiatric: Denies anxiety <Estevan Riggs MD - Last Filed: 11/05/21 06:53> [facility] Past Medical History Medical History: Medical History Diabetes Occipital cerebral infarction Seizure disorder <Estevan Riggs MD - Last Filed: 11/05/21 06:53> Social History Social History: Social History Household Members: Unknown / Unable to assess Housing: Unknown / Unable to assess Do you presently have visiting nurse or other home services: No Patient Tobacco Use Status: Former Tobacco user Advance Directives: No Advance Directives Information Provided: No service: No Sexual orientation: Don't Know <Estevan Riggs MD - Last Filed: 11/05/21 06:53> Physical Exam Vital Signs: Vital Signs: Last Vital Signs Temp 97.0 F 11/04/21 22:07 Pulse 104 H 11/05/21 09:35 Resp 17 11/05/21 09:35 BP 149/70 H 11/05/21 09:35 Pulse Ox 95 11/05/21 09:35 BMI result Body Mass Index 21.5 <Estevan Riggs MD - Last Filed: 11/05/21 06:53> Vital Signs: Last Vital Signs Temp 97.0 F 11/04/21 22:07 Pulse 104 H 11/05/21 09:35 Resp 17 11/05/21 09:35 BP 149/70 H 11/05/21 09:35 Pulse Ox 95 11/05/21 09:35 BMI result Body Mass Index 21.5 <JOSE Hines - Last Filed: 11/05/21 13:06> Const: Other: unkept agitated <Estevan Riggs MD - Last Filed: 11/05/21 06:53> Nutritional Appearance: thin <Estevan Riggs MD - Last Filed: 11/05/21 06:53> Orientation/consciousness: oriented to person and patient oriented x3 <Estevan Riggs MD - Last Filed: 11/05/21 06:53> Limitations: no limitations <Estevan Riggs MD - Last Filed: 11/05/21 06:53> HEENT: Head: Yes normal to inspection <Estevan Riggs MD - Last Filed: 11/05/21 06:53> Ears: external ears normal <Estevan Riggs MD - Last Filed: 11/05/21 06:53> General nose exam: Normal external nose present <Estevan Riggs MD - Last Filed: 11/05/21 06:53> Mouth: Normal oral and palatal mucosa present and oropharynx normal <Estevan Riggs MD - Last Filed: 11/05/21 06:53> Throat: Yes posterior oropharynx normal <Estevan Riggs MD - Last Filed: 11/05/21 06:53> Eyes: General: appearance normal, both eyes and all related structures <Estevan Riggs MD - Last Filed: 11/05/21 06:53> Neck: Other: supple <Estevan Riggs MD - Last Filed: 11/05/21 06:53> Neck: Yes normal visual inspection <Estevan Riggs MD - Last Filed: 11/05/21 06:53> Chest: Chest palpation & inspection: normal inspection of the chest <Estevan Riggs MD - Last Filed: 11/05/21 06:53> Resp: Auscultation: clear to auscultation bilaterally <Estevan Riggs MD - Last Filed: 11/05/21 06:53> Cardio: Jugular venous distension: no JVD <Estevan Riggs MD - Last Filed: 11/05/21 06:53> Rate: regular rate <Estevan Riggs MD - Last Filed: 11/05/21 06:53> Rhythm: regular rhythm <Estevan Riggs MD - Last Filed: 11/05/21 06:53> Heart sounds: S1 normal heart sound present and S2 normal heart sound present <Estevan Riggs MD - Last Filed: 11/05/21 06:53> GI: Inspection: Yes normal to inspection <Estevan Riggs MD - Last Filed: 11/05/21 06:53> Palpation (GI): Soft to palpation, nontender and No hepatosplenomegaly present <Estevan Riggs MD - Last Filed: 11/05/21 06:53> Auscultation: normal bowel sounds <Estevan Riggs MD - Last Filed: 11/05/21 06:53> : General: Yes no CVA tenderness <Estevan Riggs MD - Last Filed: 11/05/21 06:53> Back/Spine/Pelvis: Back: no CVA tenderness <Estevan Riggs MD - Last Filed: 11/05/21 06:53> Skin: General skin exam: no rashes or lesions noted <Estevan Riggs MD - Last Filed: 11/05/21 06:53> Neuro: General: oriented to person and patient oriented x3 <Estevan Riggs MD - Last Filed: 11/05/21 06:53> Cranial nerves: Yes CN's II-XII intact bilaterally <Estevan Riggs MD - Last Filed: 11/05/21 06:53> Motor exam (neuro): 5/5 motor strength present throughout <Estevan Riggs MD - Last Filed: 11/05/21 06:53> Sensory Exam: No Sensory deficit (Neuro) <Estevan Riggs MD - Last Filed: 11/05/21 06:53> Extrem: General: Yes normal to inspection <Estevan Riggs MD - Last Filed: 11/05/21 06:53> Psych: Other: agitated female stating that it is not safe for her to go to her apartment <Estevan Riggs MD - Last Filed: 11/05/21 06:53> Course Course Course Narrative: Patient placed in physician observation at 5am The indication for observation is that the patient needs more time to see if his depression improves or he will need to be admitted. At this time the patient is well developed well nourished, lungs clear, CV RRR, abd nontender, neuro is intact. slightly agitiated <Estevan Riggs MD - Last Filed: 11/05/21 06:53> Reevaluation(s) Reevaluation #1: Physician observation continued. [facility]N consult is pending. Glucose 353 this morning she received her long acting insulin and lispro SS ordered. Referral sent and awaiting evaluation. Will continue to monitor. <JOSE Hines - Last Filed: 11/05/21 13:06> Time: 13:05 <JOSE Hines - Last Filed: 11/05/21 13:06> MDM - Psych Lab Data Result diagrams: : 11/04/21 22:04 11/04/21 22:04 <Estevan Riggs MD - Last Filed: 11/05/21 06:53> Labs: Lab Results 11/04/21 11/04/21 11/04/21 Range/Units 22:04 22:04 22:04 WBC 10.3 (4.8-10.8) X10*3/uL RBC 4.57 (4.20-5.50) X10*6/uL Hgb 14.0 (12.0-16.0) g/dl Hct 40.1 (37.0-47.0) % MCV 87.7 (80.0-98.0) fL MCH 30.6 (27.0-33.0) pg MCHC 34.9 (31.0-35.0) g/dl RDW 12.7 (11.0-16.0) % Plt Count 336 (160-400) X10*3/uL MPV 9.4 (9.4-12.3) fL Immature Gran % (Auto) 0.2 (0.0-0.4) % Neut % (Auto) 57.6 (45-73) % Lymph % (Auto) 32.5 (20-40) % Ritchie % (Auto) 8.0 (2-11) % Eos % (Auto) 1.2 (0-4) % Baso % (Auto) 0.5 (0-2) % Lymph # (Auto) 3.4 (1.2-4.9) X10*3/uL Ritchie # (Auto) 0.8 (0.1-1.2) X10*3/uL Eos # (Auto) 0.1 (0.0-0.4) X10*3/uL Baso # (Auto) 0.1 (0.0-0.2) X10*3/uL Abs Immat Gran (auto) 0.02 (0.00-0.03) X10*3/uL Absolute Neuts (auto) 6.0 (2.0-8.3) x10*3/uL Absolute Nucleated RBC 0.000 (0.0-0.012) X10*3/uL Nucleated RBC % (auto) 0.0 (0.0-0.2) /100WBC Sodium 130 L (135-145) mmol/L Potassium 4.4 (3.3-5.1) mmol/L Chloride 98 (96-108) mmol/L Carbon Dioxide 21 L (22-29) mmol/L Anion Gap 15 (12-20) BUN 12 (9-16) mg/dL Creatinine 0.88 (0.5-1.4) mg/dL Estim Creat Clear Calc 63.4 Estimated GFR > 60 POC Glucose (60-115) mg/dL Random Glucose 441 H* (60-115) mg/dL Calcium 9.9 (8.4-10.2) mg/dL Urine Color Urine Appearance Urine pH (5.0-8.0) Ur Specific [place] (1.005-1.025) Urine Protein (NEG-TRACE) MG/DL Urine Glucose (UA) (NEG) MG/DL Urine Ketones (NEG) MG/DL Urine Blood (NEG) Urine Nitrite (NEG) Ur Leukocyte Esterase (NEG) Urine RBC (0) /HPF Urine WBC (0-4) /HPF Ur Squamous Epith Cells /LPF Urine Bacteria /LPF Urine Opiates Screen (Not Detect) Urine Fentanyl Screen (Not Detect) Ur Barbiturates Screen (Not Detect) Ur Phencyclidine Scrn (Not Detect) Ur Amphetamines Screen (Not Detect) U Benzodiazepines Scrn (Not Detect) Urine Cocaine Screen (Not Detect) U Marijuana (THC) Screen (Not Detect) Ethyl Alcohol < 10 mg/dL COVID-19 ([facility]) (Negative) COVID-19 Clin Com 11/04/21 11/04/21 11/04/21 Range/Units 22:08 22:08 23:20 WBC (4.8-10.8) X10*3/uL RBC (4.20-5.50) X10*6/uL Hgb (12.0-16.0) g/dl Hct (37.0-47.0) % MCV (80.0-98.0) fL MCH (27.0-33.0) pg MCHC (31.0-35.0) g/dl RDW (11.0-16.0) % Plt Count (160-400) X10*3/uL MPV (9.4-12.3) fL Immature Gran % (Auto) (0.0-0.4) % Neut % (Auto) (45-73) % Lymph % (Auto) (20-40) % Ritchie % (Auto) (2-11) % Eos % (Auto) (0-4) % Baso % (Auto) (0-2) % Lymph # (Auto) (1.2-4.9) X10*3/uL Ritchie # (Auto) (0.1-1.2) X10*3/uL Eos # (Auto) (0.0-0.4) X10*3/uL Baso # (Auto) (0.0-0.2) X10*3/uL Abs Immat Gran (auto) (0.00-0.03) X10*3/uL Absolute Neuts (auto) (2.0-8.3) x10*3/uL Absolute Nucleated RBC (0.0-0.012) X10*3/uL Nucleated RBC % (auto) (0.0-0.2) /100WBC Sodium (135-145) mmol/L Potassium (3.3-5.1) mmol/L Chloride (96-108) mmol/L Carbon Dioxide (22-29) mmol/L Anion Gap (12-20) BUN (9-16) mg/dL Creatinine (0.5-1.4) mg/dL Estim Creat Clear Calc Estimated GFR POC Glucose 523 H* (60-115) mg/dL Random Glucose (60-115) mg/dL Calcium (8.4-10.2) mg/dL Urine Color YELLOW Urine Appearance CLEAR Urine pH 6.0 (5.0-8.0) Ur Specific [place] <= 1.005 (1.005-1.025) Urine Protein NEG (NEG-TRACE) MG/DL Urine Glucose (UA) >=1000 H (NEG) MG/DL Urine Ketones 5 (NEG) MG/DL Urine Blood NEG (NEG) Urine Nitrite NEG (NEG) Ur Leukocyte Esterase NEG (NEG) Urine RBC 0 (0) /HPF Urine WBC 0 (0-4) /HPF Ur Squamous Epith Cells 1+ /LPF Urine Bacteria TRACE /LPF Urine Opiates Screen Not Detected (Not Detect) Urine Fentanyl Screen Not Detected (Not Detect) Ur Barbiturates Screen Not Detected (Not Detect) Ur Phencyclidine Scrn Not Detected (Not Detect) Ur Amphetamines Screen Not Detected (Not Detect) U Benzodiazepines Scrn Not Detected (Not Detect) Urine Cocaine Screen Not Detected (Not Detect) U Marijuana (THC) Screen Not Detected (Not Detect) Ethyl Alcohol mg/dL COVID-19 ([facility]REY) (Negative) COVID-19 Clin Com 11/05/21 11/05/21 11/05/21 Range/Units 05:45 06:03 09:39 WBC (4.8-10.8) X10*3/uL RBC (4.20-5.50) X10*6/uL Hgb (12.0-16.0) g/dl Hct (37.0-47.0) % MCV (80.0-98.0) fL MCH (27.0-33.0) pg MCHC (31.0-35.0) g/dl RDW (11.0-16.0) % Plt Count (160-400) X10*3/uL MPV (9.4-12.3) fL Immature Gran % (Auto) (0.0-0.4) % Neut % (Auto) (45-73) % Lymph % (Auto) (20-40) % Ritchie % (Auto) (2-11) % Eos % (Auto) (0-4) % Baso % (Auto) (0-2) % Lymph # (Auto) (1.2-4.9) X10*3/uL Ritchie # (Auto) (0.1-1.2) X10*3/uL Eos # (Auto) (0.0-0.4) X10*3/uL Baso # (Auto) (0.0-0.2) X10*3/uL Abs Immat Gran (auto) (0.00-0.03) X10*3/uL Absolute Neuts (auto) (2.0-8.3) x10*3/uL Absolute Nucleated RBC (0.0-0.012) X10*3/uL Nucleated RBC % (auto) (0.0-0.2) /100WBC Sodium (135-145) mmol/L Potassium (3.3-5.1) mmol/L Chloride (96-108) mmol/L Carbon Dioxide (22-29) mmol/L Anion Gap (12-20) BUN (9-16) mg/dL Creatinine (0.5-1.4) mg/dL Estim Creat Clear Calc Estimated GFR POC Glucose 298 H 353 H* (60-115) mg/dL Random Glucose (60-115) mg/dL Calcium (8.4-10.2) mg/dL Urine Color Urine Appearance Urine pH (5.0-8.0) Ur Specific [place] (1.005-1.025) Urine Protein (NEG-TRACE) MG/DL Urine Glucose (UA) (NEG) MG/DL Urine Ketones (NEG) MG/DL Urine Blood (NEG) Urine Nitrite (NEG) Ur Leukocyte Esterase (NEG) Urine RBC (0) /HPF Urine WBC (0-4) /HPF Ur Squamous Epith Cells /LPF Urine Bacteria /LPF Urine Opiates Screen (Not Detect) Urine Fentanyl Screen (Not Detect) Ur Barbiturates Screen (Not Detect) Ur Phencyclidine Scrn (Not Detect) Ur Amphetamines Screen (Not Detect) U Benzodiazepines Scrn (Not Detect) Urine Cocaine Screen (Not Detect) U Marijuana (THC) Screen (Not Detect) Ethyl Alcohol mg/dL COVID-19 ([facility]) Negative (Negative) COVID-19 Clin Com See Note 11/05/21 Range/Units 13:00 WBC (4.8-10.8) X10*3/uL RBC (4.20-5.50) X10*6/uL Hgb (12.0-16.0) g/dl Hct (37.0-47.0) % MCV (80.0-98.0) fL MCH (27.0-33.0) pg MCHC (31.0-35.0) g/dl RDW (11.0-16.0) % Plt Count (160-400) X10*3/uL MPV (9.4-12.3) fL Immature Gran % (Auto) (0.0-0.4) % Neut % (Auto) (45-73) % Lymph % (Auto) (20-40) % Ritchie % (Auto) (2-11) % Eos % (Auto) (0-4) % Baso % (Auto) (0-2) % Lymph # (Auto) (1.2-4.9) X10*3/uL Ritchie # (Auto) (0.1-1.2) X10*3/uL Eos # (Auto) (0.0-0.4) X10*3/uL Baso # (Auto) (0.0-0.2) X10*3/uL Abs Immat Gran (auto) (0.00-0.03) X10*3/uL Absolute Neuts (auto) (2.0-8.3) x10*3/uL Absolute Nucleated RBC (0.0-0.012) X10*3/uL Nucleated RBC % (auto) (0.0-0.2) /100WBC Sodium (135-145) mmol/L Potassium (3.3-5.1) mmol/L Chloride (96-108) mmol/L Carbon Dioxide (22-29) mmol/L Anion Gap (12-20) BUN (9-16) mg/dL Creatinine (0.5-1.4) mg/dL Estim Creat Clear Calc Estimated GFR POC Glucose 249 H (60-115) mg/dL Random Glucose (60-115) mg/dL Calcium (8.4-10.2) mg/dL Urine Color Urine Appearance Urine pH (5.0-8.0) Ur Specific [place] (1.005-1.025) Urine Protein (NEG-TRACE) MG/DL Urine Glucose (UA) (NEG) MG/DL Urine Ketones (NEG) MG/DL Urine Blood (NEG) Urine Nitrite (NEG) Ur Leukocyte Esterase (NEG) Urine RBC (0) /HPF Urine WBC (0-4) /HPF Ur Squamous Epith Cells /LPF Urine Bacteria /LPF Urine Opiates Screen (Not Detect) Urine Fentanyl Screen (Not Detect) Ur Barbiturates Screen (Not Detect) Ur Phencyclidine Scrn (Not Detect) Ur Amphetamines Screen (Not Detect) U Benzodiazepines Scrn (Not Detect) Urine Cocaine Screen (Not Detect) U Marijuana (THC) Screen (Not Detect) Ethyl Alcohol mg/dL COVID-19 ([facility]) (Negative) COVID-19 Clin Com <Estevan Riggs MD - Last Filed: 11/05/21 06:53> Lab Results 11/04/21 11/04/21 11/04/21 Range/Units 22:04 22:04 22:04 WBC 10.3 (4.8-10.8) X10*3/uL RBC 4.57 (4.20-5.50) X10*6/uL Hgb 14.0 (12.0-16.0) g/dl Hct 40.1 (37.0-47.0) % MCV 87.7 (80.0-98.0) fL MCH 30.6 (27.0-33.0) pg MCHC 34.9 (31.0-35.0) g/dl RDW 12.7 (11.0-16.0) % Plt Count 336 (160-400) X10*3/uL MPV 9.4 (9.4-12.3) fL Immature Gran % (Auto) 0.2 (0.0-0.4) % Neut % (Auto) 57.6 (45-73) % Lymph % (Auto) 32.5 (20-40) % Ritchie % (Auto) 8.0 (2-11) % Eos % (Auto) 1.2 (0-4) % Baso % (Auto) 0.5 (0-2) % Lymph # (Auto) 3.4 (1.2-4.9) X10*3/uL Ritchie # (Auto) 0.8 (0.1-1.2) X10*3/uL Eos # (Auto) 0.1 (0.0-0.4) X10*3/uL Baso # (Auto) 0.1 (0.0-0.2) X10*3/uL Abs Immat Gran (auto) 0.02 (0.00-0.03) X10*3/uL Absolute Neuts (auto) 6.0 (2.0-8.3) x10*3/uL Absolute Nucleated RBC 0.000 (0.0-0.012) X10*3/uL Nucleated RBC % (auto) 0.0 (0.0-0.2) /100WBC Sodium 130 L (135-145) mmol/L Potassium 4.4 (3.3-5.1) mmol/L Chloride 98 (96-108) mmol/L Carbon Dioxide 21 L (22-29) mmol/L Anion Gap 15 (12-20) BUN 12 (9-16) mg/dL Creatinine 0.88 (0.5-1.4) mg/dL Estim Creat Clear Calc 63.4 Estimated GFR > 60 POC Glucose (60-115) mg/dL Random Glucose 441 H* (60-115) mg/dL Calcium 9.9 (8.4-10.2) mg/dL Urine Color Urine Appearance Urine pH (5.0-8.0) Ur Specific [place] (1.005-1.025) Urine Protein (NEG-TRACE) MG/DL Urine Glucose (UA) (NEG) MG/DL Urine Ketones (NEG) MG/DL Urine Blood (NEG) Urine Nitrite (NEG) Ur Leukocyte Esterase (NEG) Urine RBC (0) /HPF Urine WBC (0-4) /HPF Ur Squamous Epith Cells /LPF Urine Bacteria /LPF Urine Opiates Screen (Not Detect) Urine Fentanyl Screen (Not Detect) Ur Barbiturates Screen (Not Detect) Ur Phencyclidine Scrn (Not Detect) Ur Amphetamines Screen (Not Detect) U Benzodiazepines Scrn (Not Detect) Urine Cocaine Screen (Not Detect) U Marijuana (THC) Screen (Not Detect) Ethyl Alcohol < 10 mg/dL COVID-19 ([facility]) (Negative) COVID-19 Clin Com 11/04/21 11/04/21 11/04/21 Range/Units 22:08 22:08 23:20 WBC (4.8-10.8) X10*3/uL RBC (4.20-5.50) X10*6/uL Hgb (12.0-16.0) g/dl Hct (37.0-47.0) % MCV (80.0-98.0) fL MCH (27.0-33.0) pg MCHC (31.0-35.0) g/dl RDW (11.0-16.0) % Plt Count (160-400) X10*3/uL MPV (9.4-12.3) fL Immature Gran % (Auto) (0.0-0.4) % Neut % (Auto) (45-73) % Lymph % (Auto) (20-40) % Ritchie % (Auto) (2-11) % Eos % (Auto) (0-4) % Baso % (Auto) (0-2) % Lymph # (Auto) (1.2-4.9) X10*3/uL Ritchie # (Auto) (0.1-1.2) X10*3/uL Eos # (Auto) (0.0-0.4) X10*3/uL Baso # (Auto) (0.0-0.2) X10*3/uL Abs Immat Gran (auto) (0.00-0.03) X10*3/uL Absolute Neuts (auto) (2.0-8.3) x10*3/uL Absolute Nucleated RBC (0.0-0.012) X10*3/uL Nucleated RBC % (auto) (0.0-0.2) /100WBC Sodium (135-145) mmol/L Potassium (3.3-5.1) mmol/L Chloride (96-108) mmol/L Carbon Dioxide (22-29) mmol/L Anion Gap (12-20) BUN (9-16) mg/dL Creatinine (0.5-1.4) mg/dL Estim Creat Clear Calc Estimated GFR POC Glucose 523 H* (60-115) mg/dL Random Glucose (60-115) mg/dL Calcium (8.4-10.2) mg/dL Urine Color YELLOW Urine Appearance CLEAR Urine pH 6.0 (5.0-8.0) Ur Specific [place] <= 1.005 (1.005-1.025) Urine Protein NEG (NEG-TRACE) MG/DL Urine Glucose (UA) >=1000 H (NEG) MG/DL Urine Ketones 5 (NEG) MG/DL Urine Blood NEG (NEG) Urine Nitrite NEG (NEG) Ur Leukocyte Esterase NEG (NEG) Urine RBC 0 (0) /HPF Urine WBC 0 (0-4) /HPF Ur Squamous Epith Cells 1+ /LPF Urine Bacteria TRACE /LPF Urine Opiates Screen Not Detected (Not Detect) Urine Fentanyl Screen Not Detected (Not Detect) Ur Barbiturates Screen Not Detected (Not Detect) Ur Phencyclidine Scrn Not Detected (Not Detect) Ur Amphetamines Screen Not Detected (Not Detect) U Benzodiazepines Scrn Not Detected (Not Detect) Urine Cocaine Screen Not Detected (Not Detect) U Marijuana (THC) Screen Not Detected (Not Detect) Ethyl Alcohol mg/dL COVID-19 ([facility]) (Negative) COVID-19 Clin Com 11/05/21 11/05/21 11/05/21 Range/Units 05:45 06:03 09:39 WBC (4.8-10.8) X10*3/uL RBC (4.20-5.50) X10*6/uL Hgb (12.0-16.0) g/dl Hct (37.0-47.0) % MCV (80.0-98.0) fL MCH (27.0-33.0) pg MCHC (31.0-35.0) g/dl RDW (11.0-16.0) % Plt Count (160-400) X10*3/uL MPV (9.4-12.3) fL Immature Gran % (Auto) (0.0-0.4) % Neut % (Auto) (45-73) % Lymph % (Auto) (20-40) % [place] % (Auto) (2-11) % Eos % (Auto) (0-4) % Baso % (Auto) (0-2) % Lymph # (Auto) (1.2-4.9) X10*3/uL Ritchie # (Auto) (0.1-1.2) X10*3/uL Eos # (Auto) (0.0-0.4) X10*3/uL Baso # (Auto) (0.0-0.2) X10*3/uL Abs Immat Gran (auto) (0.00-0.03) X10*3/uL Absolute Neuts (auto) (2.0-8.3) x10*3/uL Absolute Nucleated RBC (0.0-0.012) X10*3/uL Nucleated RBC % (auto) (0.0-0.2) /100WBC Sodium (135-145) mmol/L Potassium (3.3-5.1) mmol/L Chloride (96-108) mmol/L Carbon Dioxide (22-29) mmol/L Anion Gap (12-20) BUN (9-16) mg/dL Creatinine (0.5-1.4) mg/dL Estim Creat Clear Calc Estimated GFR POC Glucose 298 H 353 H* (60-115) mg/dL Random Glucose (60-115) mg/dL Calcium (8.4-10.2) mg/dL Urine Color Urine Appearance Urine pH (5.0-8.0) Ur Specific [place] (1.005-1.025) Urine Protein (NEG-TRACE) MG/DL Urine Glucose (UA) (NEG) MG/DL Urine Ketones (NEG) MG/DL Urine Blood (NEG) Urine Nitrite (NEG) Ur Leukocyte Esterase (NEG) Urine RBC (0) /HPF Urine WBC (0-4) /HPF Ur Squamous Epith Cells /LPF Urine Bacteria /LPF Urine Opiates Screen (Not Detect) Urine Fentanyl Screen (Not Detect) Ur Barbiturates Screen (Not Detect) Ur Phencyclidine Scrn (Not Detect) Ur Amphetamines Screen (Not Detect) U Benzodiazepines Scrn (Not Detect) Urine Cocaine Screen (Not Detect) U Marijuana (THC) Screen (Not Detect) Ethyl Alcohol mg/dL COVID-19 ([facility]) Negative (Negative) COVID-19 Clin Com See Note 11/05/21 Range/Units 13:00 WBC (4.8-10.8) X10*3/uL RBC (4.20-5.50) X10*6/uL Hgb (12.0-16.0) g/dl Hct (37.0-47.0) % MCV (80.0-98.0) fL MCH (27.0-33.0) pg MCHC (31.0-35.0) g/dl RDW (11.0-16.0) % Plt Count (160-400) X10*3/uL MPV (9.4-12.3) fL Immature Gran % (Auto) (0.0-0.4) % Neut % (Auto) (45-73) % Lymph % (Auto) (20-40) % [place] % (Auto) (2-11) % Eos % (Auto) (0-4) % Baso % (Auto) (0-2) % Lymph # (Auto) (1.2-4.9) X10*3/uL [place] # (Auto) (0.1-1.2) X10*3/uL Eos # (Auto) (0.0-0.4) X10*3/uL Baso # (Auto) (0.0-0.2) X10*3/uL Abs Immat Gran (auto) (0.00-0.03) X10*3/uL Absolute Neuts (auto) (2.0-8.3) x10*3/uL Absolute Nucleated RBC (0.0-0.012) X10*3/uL Nucleated RBC % (auto) (0.0-0.2) /100WBC Sodium (135-145) mmol/L Potassium (3.3-5.1) mmol/L Chloride (96-108) mmol/L Carbon Dioxide (22-29) mmol/L Anion Gap (12-20) BUN (9-16) mg/dL Creatinine (0.5-1.4) mg/dL Estim Creat Clear Calc Estimated GFR POC Glucose 249 H (60-115) mg/dL Random Glucose (60-115) mg/dL Calcium (8.4-10.2) mg/dL Urine Color Urine Appearance Urine pH (5.0-8.0) Ur Specific [place] (1.005-1.025) Urine Protein (NEG-TRACE) MG/DL Urine Glucose (UA) (NEG) MG/DL Urine Ketones (NEG) MG/DL Urine Blood (NEG) Urine Nitrite (NEG) Ur Leukocyte Esterase (NEG) Urine RBC (0) /HPF Urine WBC (0-4) /HPF Ur Squamous Epith Cells /LPF Urine Bacteria /LPF Urine Opiates Screen (Not Detect) Urine Fentanyl Screen (Not Detect) Ur Barbiturates Screen (Not Detect) Ur Phencyclidine Scrn (Not Detect) Ur Amphetamines Screen (Not Detect) U Benzodiazepines Scrn (Not Detect) Urine Cocaine Screen (Not Detect) U Marijuana (THC) Screen (Not Detect) Ethyl Alcohol mg/dL COVID-19 ([facility]) (Negative) COVID-19 Clin Com <JOSE Hines - Last Filed: 11/05/21 13:06> Discharge Plan Discharge Clinical Impression: Bipolar 1 disorder <Estevan Riggs MD - Last Filed: 11/05/21 06:53> Patient Disposition: Still a Patient <Estevan Riggs MD - Last Filed: 11/05/21 06:53> Prescriptions: No Action atorvastatin 80 mg Tablet 80 mg PO BEDTIME Qty: 30 1RF clonidine HCl 0.1 mg Tablet 0.1 mg PO BID Qty: 60 1RF Protocol: Hold for SBP< HOLD for SBP < : 90 aspirin 81 mg Tablet,Delayed Release (Dr/Ec) 81 mg PO DAILY Qty: 30 0RF carbamazepine 200 mg Tablet Extended Release 12 Hr 200 mg PO DAILY Qty: 30 1RF amlodipine 10 mg Tablet 10 mg PO DAILY Qty: 30 1RF Protocol: Hold for SBP< HOLD for SBP < : 90 lisinopril 10 mg Tablet 10 mg PO DAILY Qty: 30 1RF Protocol: Hold for SBP< HOLD for SBP < : 90 carbamazepine 400 mg tablet extended release 12 hr 400 mg PO BEDTIME Qty: 30 0RF Lantus U-100 Insulin 100 unit/mL Solution 12 unit subcut DAILY Qty: 10 1RF dextrose [Glutose-15] 40 % Gel 15 g PO Q15M PRN (Reason: Per Hypoglycemia Standing Ord.) Qty: 12.5 1RF Protocol: Glucose Gel Hypoglycemia Standing Order Protocol Text: For patients able to take PO (patient cooperative and able to swallow). Give Glucose Gel 15 gm PO for Blood Glucose (BG) < 70. Repeat BG every 15 min until BG > 70 x 3, if BG still < 70 and/or patient symptomatic repeat glucose gel or rapid acting carbohydrate. Notify MD if BG does not improve with treatment. docusate sodium 100 mg Capsule 100 mg PO DAILY PRN (Reason: Constipation) Qty: 30 1RF insulin lispro [Humalog U-100 Insulin] 100 unit/mL Solution See Protocol unit subcut MARVIN Qty: 10 1RF Protocol: Insulin Correction Scale Less than or equal to 110 ---- Give (units): 0 111 to 150 Give (units): 0 151 to 200 Give (units): 2 201 to 250 Give (units): 4 251 to 300 Give (units): 6 301 to 350 Give (units): 8 Greater than 350 Give (units): 10 Call if Blood Glucose > : 350 metformin 750 mg Tablet Extended Release 24 Hr 1,500 mg PO BEDTIME Qty: 60 1RF (DME) insulin admin supplies Insulin Pen See Rx Instructions .Route Qty: 1 0RF Rx Instructions: As directed trazodone 100 mg tablet 150 mg PO BEDTIME PRN (Reason: Insomnia) 0RF olanzapine 15 mg tablet 1 tab PO BID 0RF <Estevan Riggs MD - Last Filed: 11/05/21 06:53>
[2021-11-04] MEDS: traZODone HCL 100 MG TABLET 150 MG PO (21:51)
[2021-11-04] MEDS: OLANZapine 10 MG TABLET 30 MG PO (21:51)
--- NOTE | 2021-11-04 21:55 | PC.NURSE ---
Medicated per Mar.
[2021-11-04 22:07] VITALS: BP 130/74; PULSE 72; RESP 16; TEMP 36.1; O2SAT 98
[2021-11-04 22:08] LABS: MANUAL DIFF FLAG NO
[2021-11-04 22:18] LABS: Basophils Absolute Auto 0.1 X10*3/uL (0.0-0.2); Basophils Percent Auto 0.5 % (0-2); Eosinophils Absolute Auto 0.1 X10*3/uL (0.0-0.4); Eosinophils Percent Auto 1.2 % (0-4); Hematocrit 40.1 % (37.0-47.0); Imm Gran Abs Auto 0.02 X10*3/uL (0.00-0.03); Imm Gran Pct Auto 0.2 % (0.0-0.4); Lymphocytes Absolute Auto 3.4 X10*3/uL (1.2-4.9); Lymphocytes Percent Auto 32.5 % (20-40); Mean Corpuscular HGB Conc 34.9 g/dl (31.0-35.0); Mean Corpuscular Hemoglobin 30.6 pg (27.0-33.0); Mean Corpuscular Volume 87.7 fL (80.0-98.0); Mean Platelet Volume 9.4 fL (9.4-12.3); Monocytes Absolute Auto 0.8 X10*3/uL (0.1-1.2); Neutrophils Percent Auto 57.6 % (45-73); Platelet Count 336 X10*3/uL (160-400); Red Blood Count 4.57 X10*6/uL (4.20-5.50); Red Cell Distribution Width 12.7 % (11.0-16.0); White Blood Count 10.3 X10*3/uL (4.8-10.8)
[2021-11-04 22:23] LABS: Appearance Urine CLEAR; Color Urine YELLOW; Glucose Urine UA >=1000 MG/DL (NEG); Leukocyte Esterase Urine NEG (NEG); Nitrite Urine NEG (NEG); Specific Gravity - Urine <= 1.005 (1.005-1.025); Urine Blood NEG (NEG); Urine Ketones 5 MG/DL (NEG); Urine Protein NEG (NEG-TRACE)
[2021-11-04 22:26] LABS: Ethanol < 10 mg/dL
--- NOTE | 2021-11-04 22:34 | PC.NURSE ---
medicated per mar, food and drink given and tolerated well.
[2021-11-04 22:37] LABS: Bacteria Urine TRACE /LPF; RBC Urine 0 /HPF (0); Squamous Epithelial Cell Urine 1+ /LPF; WBC Urine 0 /HPF (0-4)
[2021-11-04 22:38] LABS: Anion Gap 15 (12-20); Blood Urea Nitrogen 12 mg/dL (9-16); Calcium 9.9 mg/dL (8.4-10.2); Carbon Dioxide 21 mmol/L (22-29); Chloride 98 mmol/L (96-108); Creatinine Clr Calc Pharmacy 63.4; Estimated Glomerular Filt Rate > 60; Glucose Random 441 mg/dL (60-115); Potassium 4.4 mmol/L (3.3-5.1); Sodium 130 mmol/L (135-145)
[2021-11-04 22:41] LABS: Amphetamine Screen Urine Not Detected (Not Detect); Barbiturates, Urine Not Detected (Not Detect); Benzodiazepines Screen Urine Not Detected (Not Detect); Cannabinoid Screen Urine Not Detected (Not Detect); Cocaine Screen Urine Not Detected (Not Detect); Fentanyl, urine Not Detected (Not Detect); Opiate Screen Urine Not Detected (Not Detect); Phencyclidine Screen Urine Not Detected (Not Detect)
[2021-11-04 23:24] LABS: Glucose, Whole Blood 523 mg/dL (60-115)
[2021-11-04] MEDS: Insulin Lispro 100 UNIT/ML 3 ML VIAL 10 UNIT SUBCUT (23:28)
--- NOTE | 2021-11-04 23:28 | PC.NURSE ---
Patient's blood sugar 523 and patient was given 10 units of insulin. Patient was eating grahmn crackers and apple juice.
--- NOTE | 2021-11-05 03:58 | PC.NURSE ---
Patient's blood sugar was over 500 and insulin 10 units given per MD. Patient angry that she could not have apple juice and grahmn crackers but I did offer her water. I explained that her blood sugar was 543. Patient moved into a room as she was complaining that she couldn't sleep. Patient continued to complain.
[2021-11-05 05:43] VITALS: BP 160/89; PULSE 84; RESP 12; O2SAT 98
[2021-11-05 05:49] LABS: Glucose, Whole Blood 298 mg/dL (60-115)
--- NOTE | 2021-11-05 05:53 | PC.NURSE ---
pt brought over by security and myself. pt ambulated with a cane, steady gait. pt skin pink warm and dry. poc rechecked from last known poc >500 at 0358 and now is 298 at approx 0550. pt blood pressure elevated above her arrival bp. 180/91/136 retaken 171/87/140 rn relief charge is aware of pt status and is ok to come to the pod. pt is calm and cooperative with this transfer.
[2021-11-05 06:00] VITALS: RESP 16; O2SAT 98
[2021-11-05 06:25] LABS: COVID-19 Test Negative (Negative)
--- NOTE | 2021-11-05 06:27 | PC.NURSE ---
med rec not confirmed in system, pt sleeping, pharmacy in morning.
[2021-11-05] MEDS: Insulin Glargine,Hum.rec.anlog 100 UNIT/ML 10 ML VIAL 12 UNIT SUBCUT (07:49)
[2021-11-05] MEDS: Insulin Lispro 100 UNIT/ML 3 ML VIAL SUBCUT ×3 (07:49→18:27)
[2021-11-05 09:35] VITALS: BP 149/70; PULSE 104; RESP 17; O2SAT 95
[2021-11-05 09:43] LABS: Glucose, Whole Blood 353 mg/dL (60-115)
[2021-11-05] MEDS: Aspirin Enteric Coated 81 MG TABLET.DR PO (12:44)
[2021-11-05] MEDS: cloNIDine HCL 0.1 MG TABLET PO (12:44)
[2021-11-05] MEDS: amLODIPine Besylate 10 MG TABLET PO (12:48)
[2021-11-05] MEDS: lisinopriL 10 MG TABLET PO (12:48)
[2021-11-05] MEDS: OLANZapine 7.5 MG TABLET 15 MG PO (12:49)
[2021-11-05] MEDS: carBAMazepine ER 200 MG TAB.ER.12H PO (12:49)
[2021-11-05 13:02] LABS: Glucose, Whole Blood 249 mg/dL (60-115)
--- NOTE | 2021-11-05 15:04 | MHC.CARE ---
CARE Team met with pt to determine appropriate treatment recommendations. Pt is alert and oriented x4, laying on her bed in the behavioral health pod, dressed in hospital attire. She appears older than her stated age. Pt is engaged and help seeking. Eye contact is within normal limits. Speech is slightly pressured and a little disorganized. Sleep has been poor since running out of her prescribed medications several days ago. Appetite is good. Mood is anxious with congruent affect. Pt denies AVH and does not appear to be responding to internal stimuli. Pt denies SI/HI. Memory, insight, and concentration are intact. Judgment and impulse control are okay. Pt reports that she presented to the ED because she was irritated that her insurance was refusing to cover her medications as prescribed and she had run out of her medication so she has not been able to sleep for the past few days. CARE Team reached out to pt's outpt med prescriber through [facility] and was informed that prior auth is being obtained today so pt should have her medications by tomorrow. CARE Team recommends that pt remain in the ED to receive her second dose of her Zyprexa before she is discharged home. This disposition is discussed and agreed upon by ED provider, Lida Clement, and CARE home health outreach coordinator, Zee Miller [facility].
[2021-11-05 16:17] VITALS: BP 155/83; PULSE 95; RESP 16; O2SAT 94
[2021-11-05 18:02] LABS: Glucose, Whole Blood 304 mg/dL (60-115)
== END 2021-11-05 19:03 | disposition home or self-care (01) ==
PROVIDERS: Emergency Provider Emergency Medicine
DX: F31.9 Bipolar disorder, unspecified (principal); Z20.822 Contact with and (suspected) exposure to COVID-19; F41.9 Anxiety disorder, unspecified; R45.1 Restlessness and agitation; E11.9 Type 2 diabetes mellitus without complications; Z79.82 Long term (current) use of aspirin; Z79.02 Long term (current) use of antithrombotics/antiplatelets; Z79.899 Other long term (current) drug therapy; Z79.4 Long term (current) use of insulin
CPT/HCPCS: 36415; 80048; 80307; 81001; 82077; 82947; 85025; 87635; 99284

== ENCOUNTER 2022-03-09 17:08 | Emergency (ER) | payer MEDICAID, SELFPAY ==
--- NOTE | ~2022-03-09 | XR_ITS ---
EXAMINATION: XR CHEST CLINICAL INFORMATION: Pneumonia COMPARISON: 08/22/2021 TECHNIQUE: Frontal view of the chest was obtained. FINDINGS: Normal symmetric lung volumes. No parenchymal consolidation. No pleural effusion. No pneumothorax. Cardiomediastinal silhouette and pulmonary vascularity are within normal limits. No acute osseous abnormalities. XR/XR chest 1V IMPRESSION: No acute findings
[2022-03-09 17:32] LABS: Glucose, Whole Blood 112 mg/dL (60-115)
[2022-03-09 17:48] VITALS: BP 96/58; PULSE 98; RESP 16; TEMP 36.9; O2SAT 98; BMI 30.2
--- NOTE | 2022-03-09 17:51 | ECG_ITS ---
Test Reason : DIZZINESS Blood Pressure : / mmHG Vent. Rate : 095 BPM Atrial Rate : 095 BPM P-R Int : 166 ms QRS Dur : 076 ms QT Int : 354 ms P-R-T Axes : 060 041 065 degrees QTc Int : 444 ms Normal sinus rhythm Possible Left atrial enlargement Minimal voltage criteria for LVH, may be normal variant ( Sokolow-Alcazar ) Septal infarct (cited on or before 21-AUG-2021) Abnormal ECG When compared with ECG of 30-AUG-2021 08:56, No significant change was found Referred By: Vicente Morales Electronically Signed By:JOSE RIZVI
--- NOTE | 2022-03-09 18:53 | ED.GENADULT ---
HPI - General Adult General Chief complaint: Recheck/Abnormal Lab/Rx Stated complaint: Hypogly Time Seen by Provider: 03/09/22 17:34 Source: patient Mode of arrival: ambulatory Limitations: no limitations History of Present Illness HPI narrative: 56 yold male presents to the ED for dizziness due to hypoglycemia. Patient states she did not eat any food today and took her insulin. EMS states her glucose was 50. Patient states no chest pain, shortness of breath, fever, chills, headache, nausea, vomitting, or dizziness described as room spinning. sally took her insulin and lanthus without eating food. Related Data Home Medications Medication Instructions Recorded Confirmed olanzapine 15 mg tablet 1 tab PO BID 11/05/21 11/05/21 trazodone 100 mg tablet 150 mg PO BEDTIME PRN Insomnia 11/05/21 11/05/21 Previous Rx's Medication Instructions Recorded amlodipine 10 mg tablet 10 mg PO DAILY #30 tabs 09/10/21 aspirin 81 mg tablet,delayed 81 mg PO DAILY #30 tabs 09/10/21 release atorvastatin 80 mg tablet 80 mg PO BEDTIME #30 tabs 09/10/21 carbamazepine 200 mg 200 mg PO DAILY #30 tabs 09/10/21 tablet,extended release,12 hr carbamazepine 400 mg 400 mg PO BEDTIME #30 tabs 09/10/21 tablet,extended release,12 hr clonidine HCl 0.1 mg tablet 0.1 mg PO BID #60 tabs 09/10/21 dextrose 40 % oral gel (Glutose-15) 15 g PO Q15M PRN Per Hypoglycemia 09/10/21 Standing Ord. #12.5 grams docusate sodium 100 mg capsule 100 mg PO DAILY PRN Constipation 09/10/21 #30 caps insulin admin supplies #1 ea 09/10/21 insulin glargine 100 unit/mL 12 unit (0.12 mL) subcut DAILY #10 09/10/21 subcutaneous solution (Lantus mL U-100 Insulin) insulin lispro 100 unit/mL See Protocol subcut QIDACHS #10 mL 09/10/21 subcutaneous solution (Humalog U-100 Insulin) lisinopril 10 mg tablet 10 mg PO DAILY #30 tabs 09/10/21 metformin 750 mg tablet,extended 1,500 mg PO BEDTIME #60 tabs 09/10/21 release 24 hr Allergies Allergy/AdvReac Type Severity Reaction Status Date / Time haloperidol Allergy Unknown Unknown Verified 03/07/22 08:38 lithium Allergy Unknown Unknown Verified 03/07/22 08:38 Review of Systems Review of Systems: dizziness. hypoglycemia Yes all other systems are reviewed and are negative [facility] Past Medical History Medical History Diabetes Occipital cerebral infarction Seizure disorder Family History Family History (Updated 03/07/22 @ 08:37 by Parvin Osborn) Father Diabetes Mother Stroke Social History Social History Household Members: Unknown / Unable to assess Housing: Unknown / Unable to assess Do you presently have visiting nurse or other home services: No Patient Tobacco Use Status: Former Tobacco user Advance Directives: No Advance Directives Information Provided: Yes service: No Sexual orientation: Don't Know Physical Exam ED Vital Signs: Vital Signs - 24 hr 03/09/22 17:48 03/09/22 20:00 Temperature 98.4 F 97.9 F Pulse Rate 98 72 Respiratory Rate 16 16 Blood Pressure 96/58 L 157/70 H Pulse Oximetry 98 98 Oxygen Delivery Method Room Air Room Air BMI result Body Mass Index 30.2 Const General: cooperative, healthy appearing, comfortable, no acute distress, well developed, alert, awake and Physically active Orientation/consciousness: patient oriented x3 HENMT Head: Yes normal to inspection, Yes No palpable skull fracture present, Yes normocephalic, Yes atraumatic and No abrasion Eyes General: appearance normal, both eyes and all related structures Neck Neck: Yes normal visual inspection, Yes full ROM, Yes no lymphadenopathy, Yes no meningeal signs, Yes trachea midline, Yes supple, No anterior neck swelling and No tender Chest Chest palpation & inspection: normal inspection of the chest and normal palpation of entire chest wall Resp Effort & Inspection: normal respiratory effort and able to speak in complete sentences Auscultation: clear to auscultation bilaterally Cardio Jugular venous distension: no JVD Heart sounds: S1 normal heart sound present and S2 normal heart sound present GI Inspection: Yes normal to inspection and No abdominal wall ecchymosis Palpation (GI): Soft to palpation, not firm, nontender, no guarding and not rigid General: No CVA tenderness and Yes no CVA tenderness Back/Spine/Pelvis Back: no CVA tenderness, No CVA tenderness and No back tenderness Skin General skin exam: no rashes or lesions noted and elasticity normal Neuro General: patient oriented x3, gait normal, no meningeal signs and CN's II-XI intact bilaterally Cranial nerves: Yes CN's II-XII intact bilaterally Extrem General: Yes normal to inspection and Yes full ROM Psych Appearance: grossly normal, well kempt and not disheveled Course Course Course Narrative: POC 112. Labs ordered. chest xray and UA ordered to check for infection too see if it caused hypoglycemia. EKG and troponin ordered dueu to age. HYpoglycemia most liekly due to taking meds without eating fiid. Reevaluation(s) Reevaluation #1: Patient given food. Patient refused D5 IV. Glucose maintained above 120. Patient's 2 troponin negative. Patient is safe for discharge. Patient is not on any sulfnoly- urea. Chest x-ray negative for pneumonia. Patient is safe for discharge. Patient does not want to give urine. Time: 22:22 Medical Decision Making [facility] Narrative Medical decision making narrative: Hyporglycemia due to not eating Lab Data Result diagrams: 03/09/22 19:42 03/09/22 19:42 Labs: Lab Results 03/09/22 03/09/22 03/09/22 Range/Units 17:28 19:42 19:42 WBC 14.7 H (4.8-10.8) X10*3/uL RBC 4.89 (4.20-5.50) X10*6/uL Hgb 15.2 (12.0-16.0) g/dl Hct 43.8 (37.0-47.0) % MCV 89.6 (80.0-98.0) fL MCH 31.1 (27.0-33.0) pg MCHC 34.7 (31.0-35.0) g/dl RDW 13.5 (11.0-16.0) % Plt Count 505 H D (160-400) X10*3/uL MPV 8.3 L (9.4-12.3) fL Immature Gran % (Auto) 0.3 (0.0-0.4) % Neut % (Auto) 80.3 H (45-73) % Lymph % (Auto) 13.8 L (20-40) % Calvert % (Auto) 4.6 (2-11) % Eos % (Auto) 0.6 (0-4) % Baso % (Auto) 0.4 (0-2) % Lymph # (Auto) 2.0 (1.2-4.9) X10*3/uL Calvert # (Auto) 0.7 (0.1-1.2) X10*3/uL Eos # (Auto) 0.1 (0.0-0.4) X10*3/uL Baso # (Auto) 0.1 (0.0-0.2) X10*3/uL Abs Immat Gran (auto) 0.04 H (0.00-0.03) X10*3/uL Absolute Neuts (auto) 11.8 H (2.0-8.3) x10*3/uL Absolute Nucleated RBC 0.000 (0.0-0.012) X10*3/uL Nucleated RBC % (auto) 0.0 (0.0-0.2) /100WBC Sodium 134 L (135-145) mmol/L Potassium 4.5 (3.3-5.1) mmol/L Chloride 94 L (96-108) mmol/L Carbon Dioxide 29 (22-29) mmol/L Anion Gap 16 (12-20) BUN 4 L D (9-16) mg/dL Creatinine 0.68 (0.5-1.4) mg/dL Estim Creat Clear Calc 93.3 Estimated GFR > 60 POC Glucose 112 (60-115) mg/dL Random Glucose 130 H D (60-115) mg/dL Calcium 9.5 (8.4-10.2) mg/dL Total Bilirubin 0.3 (0.0-1.0) mg/dL AST 22 (5-31) U/L ALT 22 (0-31) U/L Alkaline Phosphatase 118 H (39-117) U/L Troponin I High Sens (<3.5-17.0) ng/L Total Protein 7.2 D (6.5-8.0) g/dL Albumin 4.4 (3.5-5.0) g/dL COVID-19 (T[facility]) (Negative) COVID-19 Clin Com 08/14/22 08/14/22 08/14/22 Range/Units 19:42 19:42 21:39 WBC (4.8-10.8) X10*3/uL RBC (4.20-5.50) X10*6/uL Hgb (12.0-16.0) g/dl Hct (37.0-47.0) % MCV (80.0-98.0) fL MCH (27.0-33.0) pg MCHC (31.0-35.0) g/dl RDW (11.0-16.0) % Plt Count (160-400) X10*3/uL MPV (9.4-12.3) fL Immature Gran % (Auto) (0.0-0.4) % Neut % (Auto) (45-73) % Lymph % (Auto) (20-40) % Calvert % (Auto) (2-11) % Eos % (Auto) (0-4) % Baso % (Auto) (0-2) % Lymph # (Auto) (1.2-4.9) X10*3/uL Calvert # (Auto) (0.1-1.2) X10*3/uL Eos # (Auto) (0.0-0.4) X10*3/uL Baso # (Auto) (0.0-0.2) X10*3/uL Abs Immat Gran (auto) (0.00-0.03) X10*3/uL Absolute Neuts (auto) (2.0-8.3) x10*3/uL Absolute Nucleated RBC (0.0-0.012) X10*3/uL Nucleated RBC % (auto) (0.0-0.2) /100WBC Sodium (135-145) mmol/L Potassium (3.3-5.1) mmol/L Chloride (96-108) mmol/L Carbon Dioxide (22-29) mmol/L Anion Gap (12-20) BUN (9-16) mg/dL Creatinine (0.5-1.4) mg/dL Estim Creat Clear Calc Estimated GFR POC Glucose 198 H (60-115) mg/dL Random Glucose (60-115) mg/dL Calcium (8.4-10.2) mg/dL Total Bilirubin (0.0-1.0) mg/dL AST (5-31) U/L ALT (0-31) U/L Alkaline Phosphatase (39-117) U/L Troponin I High Sens 12.2 (<3.5-17.0) ng/L Total Protein (6.5-8.0) g/dL Albumin (3.5-5.0) g/dL COVID-19 ([facility]) Negative (Negative) COVID-19 Clin Com See Note 03/09/22 Range/Units 21:43 WBC (4.8-10.8) X10*3/uL RBC (4.20-5.50) X10*6/uL Hgb (12.0-16.0) g/dl Hct (37.0-47.0) % MCV (80.0-98.0) fL MCH (27.0-33.0) pg MCHC (31.0-35.0) g/dl RDW (11.0-16.0) % Plt Count (160-400) X10*3/uL MPV (9.4-12.3) fL Immature Gran % (Auto) (0.0-0.4) % Neut % (Auto) (45-73) % Lymph % (Auto) (20-40) % Calvert % (Auto) (2-11) % Eos % (Auto) (0-4) % Baso % (Auto) (0-2) % Lymph # (Auto) (1.2-4.9) X10*3/uL Calvert # (Auto) (0.1-1.2) X10*3/uL Eos # (Auto) (0.0-0.4) X10*3/uL Baso # (Auto) (0.0-0.2) X10*3/uL Abs Immat Gran (auto) (0.00-0.03) X10*3/uL Absolute Neuts (auto) (2.0-8.3) x10*3/uL Absolute Nucleated RBC (0.0-0.012) X10*3/uL Nucleated RBC % (auto) (0.0-0.2) /100WBC Sodium (135-145) mmol/L Potassium (3.3-5.1) mmol/L Chloride (96-108) mmol/L Carbon Dioxide (22-29) mmol/L Anion Gap (12-20) BUN (9-16) mg/dL Creatinine (0.5-1.4) mg/dL Estim Creat Clear Calc Estimated GFR POC Glucose (60-115) mg/dL Random Glucose (60-115) mg/dL Calcium (8.4-10.2) mg/dL Total Bilirubin (0.0-1.0) mg/dL AST (5-31) U/L ALT (0-31) U/L Alkaline Phosphatase (39-117) U/L Troponin I High Sens 8.9 (<3.5-17.0) ng/L Total Protein (6.5-8.0) g/dL Albumin (3.5-5.0) g/dL COVID-19 ([facility]) (Negative) COVID-19 Clin Com ECG Data Interpretation: Normal sinus rhythm. Ventricular rate 95. Pr interval 166. QRS 76. QTC 444- STEMI Discharge Plan Discharge Clinical Impression: Hypoglycemia Patient Disposition: Home, Self-Care Instructions: Hypoglycemia in a Person with Diabetes (ED), What to Do if Your Blood Sugar is Low (ED) Additional Instructions: Your glucose was low because you do not eat. Before taking insulin please check your glucose and make sure you have food or orange juice. Return to the ED immediately for any chest pain, shortness of breath, weakness, dizziness, low glucose, fever, chills, dysuria, hematuria, coughing up blood, or any other concerning symptoms. Please follow up with PCP. Prescriptions: No Action atorvastatin 80 mg Tablet 80 mg PO BEDTIME Qty: 30 1RF clonidine HCl 0.1 mg Tablet 0.1 mg PO BID Qty: 60 1RF Protocol: Hold for SBP< HOLD for SBP < : 90 aspirin 81 mg Tablet,Delayed Release (Dr/Ec) 81 mg PO DAILY Qty: 30 0RF carbamazepine 200 mg Tablet Extended Release 12 Hr 200 mg PO DAILY Qty: 30 1RF amlodipine 10 mg Tablet 10 mg PO DAILY Qty: 30 1RF Protocol: Hold for SBP< HOLD for SBP < : 90 lisinopril 10 mg Tablet 10 mg PO DAILY Qty: 30 1RF Protocol: Hold for SBP< HOLD for SBP < : 90 carbamazepine 400 mg tablet extended release 12 hr 400 mg PO BEDTIME Qty: 30 0RF Lantus U-100 Insulin 100 unit/mL Solution 12 unit subcut DAILY Qty: 10 1RF dextrose [Glutose-15] 40 % Gel 15 g PO Q15M PRN (Reason: Per Hypoglycemia Standing Ord.) Qty: 12.5 1RF Protocol: Glucose Gel Hypoglycemia Standing Order Protocol Text: For patients able to take PO (patient cooperative and able to swallow). Give Glucose Gel 15 gm PO for Blood Glucose (BG) < 70. Repeat BG every 15 min until BG > 70 x 3, if BG still < 70 and/or patient symptomatic repeat glucose gel or rapid acting carbohydrate. Notify MD if BG does not improve with treatment. docusate sodium 100 mg Capsule 100 mg PO DAILY PRN (Reason: Constipation) Qty: 30 1RF insulin lispro [Humalog U-100 Insulin] 100 unit/mL Solution See Protocol subcut QIDACHS Qty: 10 1RF Protocol: Insulin Correction Scale Less than or equal to 110 ---- Give (units): 0 111 to 150 Give (units): 0 151 to 200 Give (units): 2 201 to 250 Give (units): 4 251 to 300 Give (units): 6 301 to 350 Give (units): 8 Greater than 350 Give (units): 10 Call MD if Blood Glucose > : 350 metformin 750 mg Tablet Extended Release 24 Hr 1,500 mg PO BEDTIME Qty: 60 1RF (DME) insulin admin supplies Insulin Pen See Rx Instructions .Route Qty: 1 0RF Rx Instructions: As directed trazodone 100 mg tablet 150 mg PO BEDTIME PRN (Reason: Insomnia) olanzapine 15 mg tablet 1 tab PO BID Interventions: ED Discharge Assessment Last Done: 03/09/22 23:13 Discharge Date/Time: 03/09/22 23:14 Print Language: Egyptian
[2022-03-09 19:48] LABS: MANUAL DIFF FLAG NO
[2022-03-09 19:51] LABS: Basophils Absolute Auto 0.1 X10*3/uL (0.0-0.2); Basophils Percent Auto 0.4 % (0-2); Eosinophils Absolute Auto 0.1 X10*3/uL (0.0-0.4); Eosinophils Percent Auto 0.6 % (0-4); Hematocrit 43.8 % (37.0-47.0); Hemoglobin 15.2 g/dl (12.0-16.0); Imm Gran Abs Auto 0.04 X10*3/uL (0.00-0.03); Imm Gran Pct Auto 0.3 % (0.0-0.4); Lymphocytes Percent Auto 13.8 % (20-40); Mean Corpuscular HGB Conc 34.7 g/dl (31.0-35.0); Mean Corpuscular Hemoglobin 31.1 pg (27.0-33.0); Mean Corpuscular Volume 89.6 fL (80.0-98.0); Mean Platelet Volume 8.3 fL (9.4-12.3); Monocytes Absolute Auto 0.7 X10*3/uL (0.1-1.2); Monocytes Percent Auto 4.6 % (2-11); Neutrophils Absolute Auto 11.8 x10*3/uL (2.0-8.3); Neutrophils Percent Auto 80.3 % (45-73); Platelet Count 505 X10*3/uL (160-400); Red Blood Count 4.89 X10*6/uL (4.20-5.50); Red Cell Distribution Width 13.5 % (11.0-16.0); White Blood Count 14.7 X10*3/uL (4.8-10.8)
[2022-03-09 20:00] VITALS: BP 157/70; PULSE 72; RESP 16; TEMP 36.6; O2SAT 98
[2022-03-09 20:08] LABS: Alanine Aminotransferase 22 U/L (0-31); Albumin Level 4.4 g/dL (3.5-5.0); Alkaline Phosphatase 118 U/L (39-117); Anion Gap 16 (12-20); Aspartate Amino Transferase 22 U/L (5-31); Bilirubin Total 0.3 mg/dL (0.0-1.0); Blood Urea Nitrogen 4 mg/dL (9-16); Calcium 9.5 mg/dL (8.4-10.2); Carbon Dioxide 29 mmol/L (22-29); Chloride 94 mmol/L (96-108); Creatinine Clr Calc Pharmacy 93.3; Estimated Glomerular Filt Rate > 60; Glucose Random 130 mg/dL (60-115); Potassium 4.5 mmol/L (3.3-5.1); Sodium 134 mmol/L (135-145); Total Protein 7.2 g/dL (6.5-8.0)
[2022-03-09 20:13] LABS: Troponin-I High Sensitivity 12.2 ng/L (<3.5-17.0)
[2022-03-09 20:20] LABS: COVID-19 Test Negative (Negative); IDNOW Serial# 16C4AD1C
[2022-03-09 21:45] LABS: Glucose, Whole Blood 198 mg/dL (60-115)
[2022-03-09 22:14] LABS: Troponin-I High Sensitivity 8.9 ng/L (<3.5-17.0)
== END 2022-03-09 23:14 | disposition home or self-care (01) ==
PROVIDERS: Physician Assistant; Emergency Provider Emergency Medicine Emergency Medical Services
DX: E11.649 Type 2 diabetes mellitus with hypoglycemia without coma (principal); R42 Dizziness and giddiness; E11.9 Type 2 diabetes mellitus without complications; R79.89 Other specified abnormal findings of blood chemistry; Z87.891 Personal history of nicotine dependence; Z79.4 Long term (current) use of insulin; Z20.822 Contact with and (suspected) exposure to COVID-19; Z79.899 Other long term (current) drug therapy
CPT/HCPCS: 36415; 71045; 80053; 82947; 84484; 85025; 87635; 93005; 96365; 99284

== ENCOUNTER 2022-03-22 22:21 | Emergency (ER) | payer MEDICAID, SELFPAY ==
[2022-03-22 22:34] VITALS: BP 158/88; PULSE 89; O2SAT 97
[2022-03-22 22:40] VITALS: PULSE 86; RESP 18; O2SAT 94; BMI 18.0
--- NOTE | 2022-03-22 23:00 | ED.FALL ---
HPI - Fall General Chief Complaint: Fall Stated Complaint: FALL Time Seen by Provider: 03/22/22 22:58 Source: patient Mode of arrival: EMS Limitations: no limitations History of Present Illness HPI Narrative: 56 yo female with hx of DM, bipolar here with c/o mechanical fall on curb hitting face on curb - no LOC no bloody nose, she also got a bruise on her left knee. She is upset her friend made her come. She does not want to be seen at this time. complaint: fall Onset (ago): minute(s) (just prior to arrival ) Fall from: standing Fall witnessed: yes, by bystander Place fall occurred: street Loss of consciousness: none Prolonged down time: no Context: tripped/slipped Location of injury: face Related Data Home Medications Medication Instructions Recorded Confirmed olanzapine 15 mg tablet 1 tab PO BID 11/05/21 11/05/21 trazodone 100 mg tablet 150 mg PO BEDTIME PRN Insomnia 11/05/21 11/05/21 Previous Rx's Medication Instructions Recorded amlodipine 10 mg tablet 10 mg PO DAILY #30 tabs 09/10/21 aspirin 81 mg tablet,delayed 81 mg PO DAILY #30 tabs 09/10/21 release atorvastatin 80 mg tablet 80 mg PO BEDTIME #30 tabs 09/10/21 carbamazepine 200 mg 200 mg PO DAILY #30 tabs 09/10/21 tablet,extended release,12 hr carbamazepine 400 mg 400 mg PO BEDTIME #30 tabs 09/10/21 tablet,extended release,12 hr clonidine HCl 0.1 mg tablet 0.1 mg PO BID #60 tabs 09/10/21 dextrose 40 % oral gel (Glutose-15) 15 g PO Q15M PRN Per Hypoglycemia 09/10/21 Standing Ord. #12.5 grams docusate sodium 100 mg capsule 100 mg PO DAILY PRN Constipation 09/10/21 #30 caps insulin admin supplies #1 ea 09/10/21 insulin glargine 100 unit/mL 12 unit (0.12 mL) subcut DAILY #10 09/10/21 subcutaneous solution (Lantus mL U-100 Insulin) insulin lispro 100 unit/mL See Protocol subcut QIDACHS #10 mL 09/10/21 subcutaneous solution (Humalog U-100 Insulin) lisinopril 10 mg tablet 10 mg PO DAILY #30 tabs 09/10/21 metformin 750 mg tablet,extended 1,500 mg PO BEDTIME #60 tabs 09/10/21 release 24 hr Allergies Allergy/AdvReac Type Severity Reaction Status Date / Time haloperidol Allergy Unknown Unknown Verified 03/07/22 08:38 lithium Allergy Unknown Unknown Verified 03/07/22 08:38 Review of Systems Review of Systems: Constitutional : No Fever, No Chills ENT/Mouth : No Ear Pain, No Hoarseness, No sore throat Eyes: No Eye Pain, No Swelling, No Redness, No Foreign Body Cardiovascular : No Chest Pain, No SOB Respiratory : No Cough, No Dyspnea Gastrointestinal : No Nausea, No Vomiting, No Diarrhea, No abdominal Pain Genitourinary : No Dysuria, No Hematuria Musculoskeletal : positive joint pain, No Myalgias, No Joint Swelling Skin : No Skin lacerations, No rash, pos abrasions Neuro : No Weakness, No Numbness, No Loss of Consciousness, No Dizziness, No Headache Psych : No Anxiety/Panic, No Depression Heme/Lymph: no easy bruising, no Lymphadenopathy Endocrine : No Polyuria, No Polydipsia All other systems reviewed and are negative [facility] Past Medical History Attestation statement: The following information was validated with the patient. Medical History Diabetes Occipital cerebral infarction Seizure disorder Family History Family History (Updated 03/07/22 @ 08:37 by Parvin Osborn Galilea) Father Diabetes Mother Stroke Social History Social History Household Members: Unknown / Unable to assess Housing: Unknown / Unable to assess Do you presently have visiting nurse or other home services: No Patient Tobacco Use Status: Former Tobacco user Advance Directives: No Advance Directives Information Provided: No service: No Sexual orientation: Don't Know Physical Exam Vital Signs: Vital Signs: Last Vital Signs Pulse 86 03/22/22 22:40 Resp 18 03/22/22 22:40 Pulse Ox 94 03/22/22 22:40 O2 Del Method 03/22/22 22:40 BMI result Body Mass Index 18.0 Appearance: Alert. Oriented X3. No acute distress. Eyes: Pupils equal, round and reactive to light. ENT: Pharynx normal. abrasions to nose and chin Neck: Normal inspection. Neck supple. CVS: Normal heart rate and rhythm. Pulses normal. Respiratory: No respiratory distress. Breath sounds normal. Abdomen: Soft and nontender. Skin: Skin warm and dry. Normal skin color. Normal skin turgor. Extremities: No lower extremity edema. contusion to left patella but full ROM Neuro: Oriented X 3. No motor deficit. No sensory deficit. MDM - Fall MDM Narrative Medical decision making narrative: 56 yo female with hx of bipolar and DM mechanical fall GCS 15, not on blood thinners - refusing workup in the ED, alert and oriented x 3 I offered imaging and xrays but she refuses. She is able to make her own decisions denies alcohol abuse. Eloped prior to DC instructions Discharge Plan Discharge Clinical Impression: Abrasion, Contusion Patient Disposition: Elopement Prescriptions: No Action atorvastatin 80 mg Tablet 80 mg PO BEDTIME Qty: 30 1RF clonidine HCl 0.1 mg Tablet 0.1 mg PO BID Qty: 60 1RF Protocol: Hold for SBP< HOLD for SBP < : 90 aspirin 81 mg Tablet,Delayed Release (Dr/Ec) 81 mg PO DAILY Qty: 30 0RF carbamazepine 200 mg Tablet Extended Release 12 Hr 200 mg PO DAILY Qty: 30 1RF amlodipine 10 mg Tablet 10 mg PO DAILY Qty: 30 1RF Protocol: Hold for SBP< HOLD for SBP < : 90 lisinopril 10 mg Tablet 10 mg PO DAILY Qty: 30 1RF Protocol: Hold for SBP< HOLD for SBP < : 90 carbamazepine 400 mg tablet extended release 12 hr 400 mg PO BEDTIME Qty: 30 0RF Lantus U-100 Insulin 100 unit/mL Solution 12 unit subcut DAILY Qty: 10 1RF dextrose [Glutose-15] 40 % Gel 15 g PO Q15M PRN (Reason: Per Hypoglycemia Standing Ord.) Qty: 12.5 1RF Protocol: Glucose Gel Hypoglycemia Standing Order Protocol Text: For patients able to take PO (patient cooperative and able to swallow). Give Glucose Gel 15 gm PO for Blood Glucose (BG) < 70. Repeat BG every 15 min until BG > 70 x 3, if BG still < 70 and/or patient symptomatic repeat glucose gel or rapid acting carbohydrate. Notify MD if BG does not improve with treatment. docusate sodium 100 mg Capsule 100 mg PO DAILY PRN (Reason: Constipation) Qty: 30 1RF insulin lispro [Humalog U-100 Insulin] 100 unit/mL Solution See Protocol subcut QIDACHS Qty: 10 1RF Protocol: Insulin Correction Scale Less than or equal to 110 ---- Give (units): 0 111 to 150 Give (units): 0 151 to 200 Give (units): 2 201 to 250 Give (units): 4 251 to 300 Give (units): 6 301 to 350 Give (units): 8 Greater than 350 Give (units): 10 Call MD if Blood Glucose > : 350 metformin 750 mg Tablet Extended Release 24 Hr 1,500 mg PO BEDTIME Qty: 60 1RF (DME) insulin admin supplies Insulin Pen See Rx Instructions .Route Qty: 1 0RF Rx Instructions: As directed trazodone 100 mg tablet 150 mg PO BEDTIME PRN (Reason: Insomnia) olanzapine 15 mg tablet 1 tab PO BID
[2022-03-22 23:07] LABS: Glucose, Whole Blood 141 mg/dL (60-115)
--- NOTE | 2022-03-22 23:08 | PC.NURSE ---
Pt. is alert and oriented, complaining of face and knee pain following a fall. Pt. complaining of hunger upon arrival. Provided a sandwich after seen by provider. Pt. is declining to have scans done of her injuries and would like to go home. Pt. states she doesn't have a ride home.
--- NOTE | 2022-03-22 23:32 | PC.NURSE ---
Immediately after arriving to the ED Raiza informed all staff that she didnt want to be here and wished to leave. Dr. Salinas spoke with her briefly at the bedside and immediately after that the pt insisted on walking out to the waiting room. I attempted to help her obtain a ride home. She insisted that she has nobody she can call. I provided her with a bus pass and showed her where the bus stop is and told her to catch the 730am bus. She ambulated out of the department with a steady gait with her cane. She ambulated outside to smoke a cigarette I informed the pt that if she hhad any questions or concerns during the night she could request to speak to me.
== END 2022-03-22 23:32 | disposition left against medical advice (07) ==
PROVIDERS: Emergency Provider Emergency Medicine
DX: S80.02XA Contusion of left knee, initial encounter (principal); S00.31XA Abrasion of nose, initial encounter; S00.81XA Abrasion of other part of head, initial encounter; W10.1XXA Fall (on)(from) sidewalk curb, initial encounter; E11.9 Type 2 diabetes mellitus without complications; Y93.01 Activity, walking, marching and hiking; Y92.414 Local residential or business street as the place of occurrence of the external cause; Y99.9 Unspecified external cause status; Z79.4 Long term (current) use of insulin
CPT/HCPCS: 82947; 99283

== ENCOUNTER 2023-01-15 13:01 | Emergency (ER) | payer MEDICAID, SELFPAY ==
[2023-01-15 13:10] VITALS: BP 168/92; PULSE 109; O2SAT 96
[2023-01-15 13:11] VITALS: BP 173/86; PULSE 107; RESP 20; TEMP 37.3; O2SAT 95; BMI 19.7
[2023-01-15 13:30] LABS: Glucose, Whole Blood 418 mg/dL (60-115)
[2023-01-15 13:43] LABS: Hematocrit 37.1 % (37.0-47.0); Hemoglobin 12.9 g/dl (12.0-16.0); Mean Corpuscular HGB Conc 34.8 g/dl (31.0-35.0); Mean Corpuscular Hemoglobin 29.9 pg (27.0-33.0); Mean Corpuscular Volume 85.9 fL (80.0-98.0); Mean Platelet Volume 8.8 fL (9.4-12.3); Platelet Count 419 X10*3/uL (160-400); Red Blood Count 4.32 X10*6/uL (4.20-5.50); Red Cell Distribution Width 13.3 % (11.0-16.0); White Blood Count 13.8 X10*3/uL (4.8-10.8)
[2023-01-15 13:44] LABS: Appearance Urine Clear; Color Urine Yellow; Glucose Urine UA >=1000 mg/dL (Negative); Leukocyte Esterase Urine Negative (Negative); Nitrite Urine Negative (Negative); UMIC TRIGGER UACC YES; Urine Blood Negative (Negative); Urine Ketones Negative (Negative); Urine Protein Negative (Neg-Trace)
[2023-01-15 14:01] LABS: Bacteria Urine None Seen (None Seen); Hyaline Casts Urine 0-2 /LPF (0-2); RBC Urine 0-2 /HPF (0-2); Squamous Epithelial Cell Urine 0-2 /HPF (0-2); WBC Urine 0-5 /HPF (0-5)
--- NOTE | 2023-01-15 14:04 | ED_ITS ---
HPI - Recheck/Abnormal Lab/Rx General Chief Complaint: Recheck/Abnormal Lab/Rx Stated Complaint: HIGH BLOOD SUGAR 567 PER EMS Time Seen by Provider: 01/15/23 13:54 Source: patient Mode of arrival: EMS Limitations: no limitations History of Present Illness HPI narrative: 57 yo female PMH of DM, bipolar admits to leaving [facility] in [place] last night to hang out with a friend and not make good decisions she notes she also left her insulin there and now has no ride back to [place]. She had a falling out with said friend. She wants to go back to anydooRs house. She needed a way to get to [place] so she called 911 for help, her sugar is high but she has no complaints and feels fine has not taken her insulin since yesterday MD complaint: abnormal lab Description of abnormal result: EMS blood sugar read HI Symptoms since prior visit: no new symptoms Context: other (has not taken insulin since yesterday ) Associated symptoms: none Treatments prior to arrival: other (IVF) Related Data Home Medications Medication Instructions Recorded Confirmed olanzapine 15 mg tablet 1 tab PO BID 11/05/21 11/05/21 trazodone 100 mg tablet 150 mg PO BEDTIME PRN Insomnia 11/05/21 11/05/21 Previous Rx's Medication Instructions Recorded amlodipine 10 mg tablet 10 mg PO DAILY #30 tabs 09/10/21 aspirin 81 mg tablet,delayed 81 mg PO DAILY #30 tabs 09/10/21 release atorvastatin 80 mg tablet 80 mg PO BEDTIME #30 tabs 09/10/21 carbamazepine 200 mg 200 mg PO DAILY #30 tabs 09/10/21 tablet,extended release,12 hr carbamazepine 400 mg 400 mg PO BEDTIME #30 tabs 09/10/21 tablet,extended release,12 hr clonidine HCl 0.1 mg tablet 0.1 mg PO BID #60 tabs 09/10/21 dextrose 40 % oral gel (Glutose-15) 15 g PO Q15M PRN Per Hypoglycemia 09/10/21 Standing Ord. #12.5 grams docusate sodium 100 mg capsule 100 mg PO DAILY PRN Constipation 09/10/21 #30 caps insulin admin supplies #1 ea 09/10/21 insulin glargine 100 unit/mL 12 unit (0.12 mL) subcut DAILY #10 09/10/21 subcutaneous solution (Lantus mL U-100 Insulin) insulin lispro 100 unit/mL See Protocol subcut QIDACHS #10 mL 09/10/21 subcutaneous solution (Humalog U-100 Insulin) lisinopril 10 mg tablet 10 mg PO DAILY #30 tabs 09/10/21 metformin 750 mg tablet,extended 1,500 mg PO BEDTIME #60 tabs 09/10/21 release 24 hr Allergies Allergy/AdvReac Type Severity Reaction Status Date / Time haloperidol Allergy Unknown Unknown Verified 03/07/22 08:38 lithium Allergy Unknown Unknown Verified 03/07/22 08:38 latex Allergy Unknown Verified 01/15/23 13:15 Review of Systems Review of Systems: Constitutional : No Fever, No Chills, No Fatigue Cardiovascular : No Chest Pain, No SOB, No Dyspnea on Exertion Respiratory : No Cough, No Sputum Gastrointestinal : No Nausea, No Vomiting, No Diarrhea, No abdominal Pain Genitourinary : No Dysuria, No Urinary Frequency, No Hematuria, Musculoskeletal : No joint pain, No Myalgias, No Joint Swelling Skin : No Skin Lesions, No rash Neuro : No Weakness, No Numbness, No Dizziness, no Headache Psych : No Anxiety/Panic, No Depression Heme/Lymph: No Bruising, No Bleeding,No Lymphadenopathy Endocrine : No Polyuria, No Polydipsia All other systems reviewed and are negative [facility] Past Medical History Attestation statement: The following information was validated with the patient. Source: old records reviewed Medical History Diabetes Occipital cerebral infarction Seizure disorder Family History Family History (Updated 03/07/22 @ 08:37 by SUKHI Titus) Father Diabetes Mother Stroke Social History Social History Household Members: Unknown / Unable to assess Housing: Unknown / Unable to assess Do you presently have visiting nurse or other home services: No Patient Tobacco Use Status: Former Tobacco user Advance Directives: No Advance Directives Information Provided: Yes service: No Sexual orientation: Don't Know Physical Exam Vital Signs: Vital Signs: Last Vital Signs Temp 99.2 F 01/15/23 13:11 Pulse 107 H 01/15/23 13:11 Resp 20 01/15/23 13:11 BP 173/86 H 01/15/23 13:11 Pulse Ox 95 01/15/23 13:11 O2 Del Method Room Air 01/15/23 13:11 BMI result Body Mass Index 19.7 Appearance: Alert. Oriented X3. No acute distress. calm and cooperative Eyes: Pupils equal, round and reactive to light. ENT: Pharynx normal. Neck: Normal inspection. Neck supple. CVS: Normal heart rate and rhythm. Pulses normal. Respiratory: No respiratory distress. Breath sounds normal. Abdomen: Soft and nontender. Skin: Skin warm and dry. Normal skin color. Normal skin turgor. Extremities: No lower extremity edema. No calf ttp Neuro: Oriented X 3. No motor deficit. No sensory deficit. Course Course Course Narrative: BS down to 372 with just fluids patient is eager to leave has supplies at [facility] at this time pending chemistry will consult case management for ride home no ketones in urine no gap and HCO3 is normal Medical Decision Making Medical Decision Making [facility] Narrative: 57 yo female with IDDM and bipolar who did not take her insulin today after leaving [facility] [place] a friend. she has no complaints it sounds like she might have used EMS to get a ride here but really wants to go to [place] all of her supplies and medications are there. She has no infectious symptoms, no chest pain and feels good. Differential Diagnosis Differential Diagnoses: The differential diagnosis associated with the presentation includes non compliance, hyperglycemia Lab Data [facility] Lab Attestation statement: I reviewed the patient's lab results. no ketones in urine no gap and HCO3 is normal Na corrects with elevated BS 01/15/23 13:34 01/15/23 13:34 Labs: Lab Results 01/15/23 01/15/23 01/15/23 Range/Units 13:22 13:34 13:34 WBC 13.8 H (4.8-10.8) X10*3/uL RBC 4.32 (4.20-5.50) X10*6/uL Hgb 12.9 (12.0-16.0) g/dl Hct 37.1 (37.0-47.0) % MCV 85.9 (80.0-98.0) fL MCH 29.9 (27.0-33.0) pg MCHC 34.8 (31.0-35.0) g/dl RDW 13.3 (11.0-16.0) % Plt Count 419 H (160-400) X10*3/uL MPV 8.8 L (9.4-12.3) fL Absolute Nucleated RBC 0.000 (0.0-0.012) X10*3/uL Nucleated RBC % (auto) 0.0 (0.0-0.2) /100WBC Sodium 129 L (135-145) mmol/L Potassium 4.2 (3.3-5.1) mmol/L Chloride 95 L (96-108) mmol/L Carbon Dioxide 26 (22-29) mmol/L Anion Gap 12 (12-20) BUN 11 (9-16) mg/dL Creatinine 0.78 (0.5-1.4) mg/dL Estim Creat Clear Calc 64.7 Estimated GFR > 60 POC Glucose 418 H* (60-115) mg/dL Random Glucose 457 H* (60-115) mg/dL Calcium 9.9 (8.4-10.2) mg/dL Total Bilirubin 0.6 (0.0-1.0) mg/dL AST 19 (5-31) U/L ALT 31 (0-31) U/L Alkaline Phosphatase 134 H (39-117) U/L Total Protein 7.2 (6.5-8.0) g/dL Albumin 4.3 (3.5-5.0) g/dL Urine Color Urine Appearance Urine pH (5.0-9.0) Ur Specific [place] (1.005-1.025) Urine Protein (Neg-Trace) mg/dL Urine Glucose (UA) (Negative) mg/dL Urine Ketones (Negative) mg/dL Urine Blood (Negative) Urine Nitrite (Negative) Ur Leukocyte Esterase (Negative) Urine RBC (0-2) /HPF Urine WBC (0-5) /HPF Ur Squamous Epith Cells (0-2) /HPF Urine Bacteria (None Seen) Hyaline Casts (0-2) /LPF B-Hydroxybutyrate (0.02-0.027) mmol/L 01/15/23 01/15/23 01/15/23 Range/Units 13:34 13:36 14:36 WBC (4.8-10.8) X10*3/uL RBC (4.20-5.50) X10*6/uL Hgb (12.0-16.0) g/dl Hct (37.0-47.0) % MCV (80.0-98.0) fL MCH (27.0-33.0) pg MCHC (31.0-35.0) g/dl RDW (11.0-16.0) % Plt Count (160-400) X10*3/uL MPV (9.4-12.3) fL Absolute Nucleated RBC (0.0-0.012) X10*3/uL Nucleated RBC % (auto) (0.0-0.2) /100WBC Sodium (135-145) mmol/L Potassium (3.3-5.1) mmol/L Chloride (96-108) mmol/L Carbon Dioxide (22-29) mmol/L Anion Gap (12-20) BUN (9-16) mg/dL Creatinine (0.5-1.4) mg/dL Estim Creat Clear Calc Estimated GFR POC Glucose 372 H* (60-115) mg/dL Random Glucose (60-115) mg/dL Calcium (8.4-10.2) mg/dL Total Bilirubin (0.0-1.0) mg/dL AST (5-31) U/L ALT (0-31) U/L Alkaline Phosphatase (39-117) U/L Total Protein (6.5-8.0) g/dL Albumin (3.5-5.0) g/dL Urine Color Yellow Urine Appearance Clear Urine pH 7.0 (5.0-9.0) Ur Specific [place] 1.010 (1.005-1.025) Urine Protein Negative (Neg-Trace) mg/dL Urine Glucose (UA) >=1000 H (Negative) mg/dL Urine Ketones Negative (Negative) mg/dL Urine Blood Negative (Negative) Urine Nitrite Negative (Negative) Ur Leukocyte Esterase Negative (Negative) Urine RBC 0-2 (0-2) /HPF Urine WBC 0-5 (0-5) /HPF Ur Squamous Epith Cells 0-2 (0-2) /HPF Urine Bacteria None Seen (None Seen) Hyaline Casts 0-2 (0-2) /LPF B-Hydroxybutyrate 0.14 H (0.02-0.027) mmol/L ABG Data Attestation ABG: I personally reviewed and interpreted this ABG as follows: Independent Historian Clinical information obtained from an independent historian. History obtained from or confirmed by: EMS External Record Review External record reviewed: Inpatient record inpatient psychiatry record from Aug 2021 Chronic Conditions Patient?s care impacted by: Diabetes Social Determinants Patient?s care significantly limited by Social Determinants of Health including: Inadequate housing, Problems related to primary support group and Unemployment Discharge Plan Discharge Clinical Impression: Acute hyperglycemia Patient Disposition: Home, Self-Care Instructions: Diabetic Hyperglycemia (ED) Additional Instructions: check your blood sugar and take your insulin when you get home. return for vomiting, abdominal pain, fevers, pain with urinating or any other concerns. please take care of yourself and take your medications as prescribed. Prescriptions: No Action atorvastatin 80 mg Tablet 80 mg PO BEDTIME Qty: 30 1RF clonidine HCl 0.1 mg Tablet 0.1 mg PO BID Qty: 60 1RF Protocol: Hold for SBP< HOLD for SBP < : 90 aspirin 81 mg Tablet,Delayed Release (Dr/Ec) 81 mg PO DAILY Qty: 30 0RF carbamazepine 200 mg Tablet Extended Release 12 Hr 200 mg PO DAILY Qty: 30 1RF amlodipine 10 mg Tablet 10 mg PO DAILY Qty: 30 1RF Protocol: Hold for SBP< HOLD for SBP < : 90 lisinopril 10 mg Tablet 10 mg PO DAILY Qty: 30 1RF Protocol: Hold for SBP< HOLD for SBP < : 90 carbamazepine 400 mg tablet extended release 12 hr 400 mg PO BEDTIME Qty: 30 0RF Lantus U-100 Insulin 100 unit/mL Solution 12 unit subcut DAILY Qty: 10 1RF dextrose [Glutose-15] 40 % Gel 15 g PO Q15M PRN (Reason: Per Hypoglycemia Standing Ord.) Qty: 12.5 1RF Protocol: Glucose Gel Hypoglycemia Standing Order Protocol Text: For patients able to take PO (patient cooperative and able to swallow). Give Glucose Gel 15 gm PO for Blood Glucose (BG) < 70. Repeat BG every 15 min until BG > 70 x 3, if BG still < 70 and/or patient symptomatic repeat glucose gel or rapid acting carbohydrate. Notify MD if BG does not improve with treatment. docusate sodium 100 mg Capsule 100 mg PO DAILY PRN (Reason: Constipation) Qty: 30 1RF insulin lispro [Humalog U-100 Insulin] 100 unit/mL Solution See Protocol subcut QIDACHS Qty: 10 1RF Protocol: Insulin Correction Scale Less than or equal to 110 ---- Give (units): 0 111 to 150 Give (units): 0 151 to 200 Give (units): 2 201 to 250 Give (units): 4 251 to 300 Give (units): 6 301 to 350 Give (units): 8 Greater than 350 Give (units): 10 Call MD if Blood Glucose > : 350 metformin 750 mg Tablet Extended Release 24 Hr 1,500 mg PO BEDTIME Qty: 60 1RF (DME) insulin admin supplies Insulin Pen See Rx Instructions .Route Qty: 1 0RF Rx Instructions: As directed trazodone 100 mg tablet 150 mg PO BEDTIME PRN (Reason: Insomnia) olanzapine 15 mg tablet 1 tab PO BID
[2023-01-15 14:39] LABS: Beta-Hydroxybutyrate 0.14 mmol/L (0.02-0.027)
[2023-01-15 14:39] LABS: Glucose, Whole Blood 372 mg/dL (60-115)
[2023-01-15 14:43] LABS: Alanine Aminotransferase 31 U/L (0-31); Albumin Level 4.3 g/dL (3.5-5.0); Alkaline Phosphatase 134 U/L (39-117); Anion Gap 12 (12-20); Aspartate Amino Transferase 19 U/L (5-31); Bilirubin Total 0.6 mg/dL (0.0-1.0); Blood Urea Nitrogen 11 mg/dL (9-16); Calcium 9.9 mg/dL (8.4-10.2); Carbon Dioxide 26 mmol/L (22-29); Chloride 95 mmol/L (96-108); Creatinine Clr Calc Pharmacy 64.7; Estimated Glomerular Filt Rate > 60; Glucose Random 457 mg/dL (60-115); Potassium 4.2 mmol/L (3.3-5.1); Sodium 129 mmol/L (135-145); Total Protein 7.2 g/dL (6.5-8.0)
== END 2023-01-15 14:55 | disposition home or self-care (01) ==
PROVIDERS: Emergency Provider Emergency Medicine; PCP Family Medicine
DX: E11.65 Type 2 diabetes mellitus with hyperglycemia (principal); F31.9 Bipolar disorder, unspecified; Z87.891 Personal history of nicotine dependence; Z79.4 Long term (current) use of insulin
CPT/HCPCS: 36415; 80053; 81001; 82010; 82947; 85027; 99283

== ENCOUNTER 2023-03-04 15:30 | Inpatient (IN) | payer MEDICAID, SELFPAY ==
[2023-03-04] VITALS (7 sets, daily range): BP systolic 142–210; BP diastolic 67–110; PULSE 96–107; RESP 14–22; TEMP 36.9–37.5; O2SAT 93–98; BMI 21.8
--- NOTE | ~2023-03-04 | XR_ITS ---
EXAMINATION: XR FOOT, LEFT CLINICAL INFORMATION: Question osteomyelitis in the fourth digit. COMPARISON: None available. TECHNIQUE: AP, lateral, and oblique views of the left foot. FINDINGS: There is a mildly displaced oblique fracture of the proximal aspect of the proximal phalanx of the fourth digit. The middle and distal phalanges appear intact. The remainder the digits are intact. The tarsal bones are normally aligned. Mild soft tissue deformity seen distally in the fourth digit. XR/XR foot LT 2V IMPRESSION: 1. Acute, mildly displaced fracture of the proximal phalanx of the fourth digit. This could be traumatic or pathologic. 2. Mild soft tissue irregularity distally in the fourth digit. Definitive erosive changes are not visualized apart from the fracture.
--- NOTE | ~2023-03-04 | XR_ITS ---
EXAMINATION: XR FOOT, RIGHT CLINICAL INFORMATION: Right foot pain, suspicion for osteomyelitis. COMPARISON: None available. TECHNIQUE: AP, lateral, and oblique views of the right foot. FINDINGS: Moderate soft tissue swelling is seen in the fourth digit. There is a comminuted fracture and deformity of the proximal phalanx with erosive changes distally. The fracture proximally extends proximally into the fourth metatarsophalangeal joint. There is malalignment of the proximal interphalangeal joint. The remainder the digits are intact. There is acute appearing, minimally displaced fracture at the base of the fifth metatarsal. The tarsal bones are normally aligned. XR/XR foot RT 2V IMPRESSION: 1. Moderate soft tissue swelling in the fourth digit with comminuted fracture and deformity of the proximal phalanx concerning for pathologic fracture. Erosive changes distally is are concerning for osteomyelitis. 2. Acute appearing minimally displaced fracture at the base of the fifth metatarsal. Correlate with physical exam.
--- NOTE | 2023-03-04 15:51 | ED.GENADULT ---
HPI - General Adult General Chief complaint: General Medical Stated complaint: NECROTIC TOES WOUND CARE Time Seen by Provider: 03/04/23 15:32 Source: patient and EMS Mode of arrival: EMS Limitations: no limitations History of Present Illness HPI narrative: Patient comes to the emergency room via ambulance from [facility]. Patient states that for the last 2 weeks, patient has noted that the left 4th toe on the foot has been getting necrotic. Today, complaining of pain and discharge of the 4th toe on the right foot. Patient denies fever chills, complaining of nausea, no abdominal pain. Related Data Home Medications Medication Instructions Recorded Confirmed olanzapine 15 mg tablet 1 tab PO BID 11/05/21 11/05/21 trazodone 100 mg tablet 150 mg PO BEDTIME 11/05/21 03/04/23 insulin glargine 100 unit/mL 26 unit subcut DAILY 03/04/23 03/04/23 subcutaneous solution (Lantus U-100 Insulin) levetiracetam 750 mg tablet 750 mg PO BID 03/04/23 (Keppra) metformin 750 mg tablet,extended 750 mg PO BEDTIME 03/04/23 03/04/23 release 24 hr Previous Rx's Medication Instructions Recorded amlodipine 10 mg tablet 10 mg PO DAILY #30 tabs 09/10/21 aspirin 81 mg tablet,delayed 81 mg PO DAILY #30 tabs 09/10/21 release atorvastatin 80 mg tablet 80 mg PO BEDTIME #30 tabs 09/10/21 clonidine HCl 0.1 mg tablet 0.1 mg PO BID #60 tabs 09/10/21 insulin admin supplies #1 ea 09/10/21 insulin lispro 100 unit/mL See Protocol subcut QIDACHS #10 mL 09/10/21 subcutaneous solution (Humalog U-100 Insulin) lisinopril 10 mg tablet 10 mg PO DAILY #30 tabs 09/10/21 Allergies Allergy/AdvReac Type Severity Reaction Status Date / Time haloperidol Allergy Unknown Unknown Verified 03/07/22 08:38 lithium Allergy Unknown Unknown Verified 03/07/22 08:38 latex Allergy Unknown Verified 01/15/23 13:15 Review of Systems Review of Systems: Constitutional : No Weight loss, No Fever, No Chills, No Night Sweats, No Fatigue, No Malaise ENT/Mouth : No Hearing loss, No Ear Pain, No Nasal Congestion, No Sinus Pain, No Hoarseness, No sore throat, No Rhinorrhea, No Swallowing Difficulty Eyes: No Eye Pain, No Swelling, No Redness, No Foreign Body, No Discharge, No Vision Changes Cardiovascular : No Chest Pain, No SOB, No Dyspnea on Exertion, No Orthopnea, No Edema, No Palpitations Respiratory : No Cough, No Sputum, No Wheezing, No Smoke Exposure, No Dyspnea Gastrointestinal : No Nausea, No Vomiting, No Diarrhea, No Constipation, No abdominal Pain, No Hematochezia, No Melena Genitourinary : no irregular bleeding, No Dysuria, No Urinary Frequency, No Hematuria, No Urinary Incontinence, No Urgency, No Flank Pain, No Urinary Flow Changes, No Hesitancy Musculoskeletal : No joint pain, No Myalgias, No Joint Swelling Skin : Complaining of necrotic toe under left 4th toe and complaining of new drainage and foul smell from the 4th toe on the right foot Neuro : No Weakness, No Numbness, No Paresthesias, No Loss of Consciousness, No Dizziness, No Headache Psych : No Anxiety/Panic, No Depression, No SI/HI/AH/VH, No Social Issues, Heme/Lymph: No Bruising, No Bleeding,No Lymphadenopathy Endocrine : No Polyuria, No Polydipsia, No Temperature Intolerance PMFSH Past Medical History Medical History (Updated 03/04/23 @ 19:23 by Jeanna Chung MD) Bipolar 1 disorder Diabetes Occipital cerebral infarction Seizure disorder Family History Family History (Updated 03/07/22 @ 08:37 by SUKHI Titus) Father Diabetes Mother Stroke Social History Social History Household Members: Unknown / Unable to assess Housing: Unknown / Unable to assess Do you presently have visiting nurse or other home services: No Patient Tobacco Use Status: Former Tobacco user Advance Directives: Yes Advance Directives on File: Yes Advance Directives Date on File: 09/12/21 service: No Sexual orientation: Don't Know Physical Exam ED Vital Signs: Vital Signs - 24 hr 03/04/23 15:47 03/04/23 16:00 03/04/23 18:43 Temperature 99.4 F 99.5 F 98.5 F Pulse Rate 99 102 H 105 H Respiratory Rate 22 H 16 18 Blood Pressure 142/67 H 163/89 H 210/90 H Pulse Oximetry 93 98 98 Oxygen Delivery Method Room Air Room Air Room Air BMI result Body Mass Index 21.8 Const Other: Appearance: Alert. Oriented X3. No acute distress. Eyes: Pupils equal, round and reactive to light. ENT: Pharynx normal. Neck: Normal inspection. Neck supple. No lymph nodes noted. No crepitus CVS: Normal heart rate and rhythm. Pulses normal. Normal S1 and S2 Respiratory: No respiratory distress. Breath sounds normal. No Wheezing. No rales Abdomen: Soft and nontender. No rigidity. No distention. Skin: Skin warm and dry. Normal skin color. Normal skin turgor. C extremities below Extremities: No lower extremity edema. Patient's 4th toe on the left is necrotic. Patient's 4th on the right has an unstageable ulcer, foul odor present and pus draining Neuro: Oriented X 3. No motor deficit. No sensory deficit. Moving all extremities. No slurred speech. CN 2 through 12 grossly intact Psych: calm, cooperative, normal affect Course Course Course Narrative: -all of patient's labs and imaging pending. -patient has no fever, patient's blood pressure 142/67, sepsis not suspected at this time. -patient empirically being treated with IV fluids, vancomycin and Zosyn. -I discussed with the patient that she will be admitted and she will likely need a toe amputation Medications Administered Discontinued Medications Generic Name Dose Route Start Last Admin Trade Name Freq PRN Reason Stop Dose Admin Sodium Chloride 2,000 mls @ 999 mls/hr 03/04/23 15:44 03/04/23 16:34 Ns IVCONT 03/04/23 17:44 999 mls/hr .Q2H1M ONE Administration Piperacillin Sod/Tazobactam 50 mls @ 100 mls/hr 03/04/23 15:44 03/04/23 17:55 Sod 3.375 gm/ Sodium Chloride IV 03/04/23 16:13 Infused ONCE ONE Infusion Vancomycin HCl 1,500 mg/ 500 mls @ 333.333 mls/hr 03/04/23 16:45 03/04/23 17:56 Sodium Chloride IV 03/04/23 18:14 333.33 mls/hr ONCE ONE Administration Medical Decision Making Medical Decision Making [facility] Narrative: -my interpretation of x-ray of the left toe: Fracture, possible osteomyelitis. -my interpretation of the x-ray of the right foot/toe, osteomyelitis present. -my interpretation of labs, hemoglobin lower than usual. Occult blood test negative, patient denies chest pain shortness of breath or fatigue -patient admitted to the hospital, discussed the patient with Dr. Pace Differential Diagnosis Differential Diagnoses: The differential diagnosis associated with the presentation includes (Cellulitis, necrosis, osteomyelitis. Anemia of chronic disease, chronic GI bleed, iron deficiency) Admission/Observation Consideration of admission/observation: Escalation of care including admission/observation considered Consult Healthcare Provider Management of the patient was discussed with: Hospitalist Lab Data MDM Lab Attestation statement: I reviewed the patient's lab results. 03/04/23 15:59 03/04/23 15:59 Labs: Lab Results 03/04/23 03/04/23 03/04/23 Range/Units 15:59 15:59 15:59 WBC 16.7 H (4.8-10.8) X10*3/uL RBC 2.88 L D (4.20-5.50) X10*6/uL Hgb 8.4 L D (12.0-16.0) g/dl Hct 25.3 L D (37.0-47.0) % MCV 87.8 (80.0-98.0) fL MCH 29.2 (27.0-33.0) pg MCHC 33.2 (31.0-35.0) g/dl RDW 12.9 (11.0-16.0) % Plt Count 459 H (160-400) X10*3/uL MPV 8.4 L (9.4-12.3) fL Immature Gran % (Auto) 0.7 H (0.0-0.4) % Neut % (Auto) 86.7 H (45-73) % Lymph % (Auto) 6.8 L (20-40) % [place] % (Auto) 5.6 (2-11) % Eos % (Auto) 0.1 (0-4) % Baso % (Auto) 0.1 (0-2) % Lymph # (Auto) 1.1 L (1.2-4.9) X10*3/uL [place] # (Auto) 0.9 (0.1-1.2) X10*3/uL Eos # (Auto) 0.0 (0.0-0.4) X10*3/uL Baso # (Auto) 0.0 (0.0-0.2) X10*3/uL Abs Immat Gran (auto) 0.11 H (0.00-0.03) X10*3/uL Absolute Neuts (auto) 14.4 H (2.0-8.3) x10*3/uL Absolute Nucleated RBC 0.000 (0.0-0.012) X10*3/uL Nucleated RBC % (auto) 0.0 (0.0-0.2) /100WBC ESR 85 H (0-20) MM/HR PT 12.2 (11.1-13.3) SEC INR 1.0 (0.9-1.1) APTT 25.8 L (26.0-36.4) SEC Sodium (135-145) mmol/L Potassium (3.3-5.1) mmol/L Chloride (96-108) mmol/L Carbon Dioxide (22-29) mmol/L Anion Gap (12-20) BUN (9-16) mg/dL Creatinine (0.5-1.4) mg/dL Estim Creat Clear Calc Estimated GFR Random Glucose (60-115) mg/dL Lactic Acid (0.5-2.0) mmol/L Calcium (8.4-10.2) mg/dL Iron (30-160) mcg/dL TIBC (228-428) mcg/dL % Saturation (15-50) % Unsat Iron Binding ug/dL Total Bilirubin (0.0-1.0) mg/dL Direct Bilirubin (0.0-0.5) mg/dL AST (5-31) U/L ALT (0-31) U/L Alkaline Phosphatase (39-117) U/L C-Reactive Protein (< or = 0.50) mg/dL Total Protein (6.5-8.0) g/dL Albumin (3.5-5.0) g/dL Stool Occult Blood (NEGATIVE) 03/04/23 03/04/23 03/04/23 Range/Units 15:59 15:59 18:36 WBC (4.8-10.8) X10*3/uL RBC (4.20-5.50) X10*6/uL Hgb (12.0-16.0) g/dl Hct (37.0-47.0) % MCV (80.0-98.0) fL MCH (27.0-33.0) pg MCHC (31.0-35.0) g/dl RDW (11.0-16.0) % Plt Count (160-400) X10*3/uL MPV (9.4-12.3) fL Immature Gran % (Auto) (0.0-0.4) % Neut % (Auto) (45-73) % Lymph % (Auto) (20-40) % [place] % (Auto) (2-11) % Eos % (Auto) (0-4) % Baso % (Auto) (0-2) % Lymph # (Auto) (1.2-4.9) X10*3/uL [place] # (Auto) (0.1-1.2) X10*3/uL Eos # (Auto) (0.0-0.4) X10*3/uL Baso # (Auto) (0.0-0.2) X10*3/uL Abs Immat Gran (auto) (0.00-0.03) X10*3/uL Absolute Neuts (auto) (2.0-8.3) x10*3/uL Absolute Nucleated RBC (0.0-0.012) X10*3/uL Nucleated RBC % (auto) (0.0-0.2) /100WBC ESR (0-20) MM/HR PT (11.1-13.3) SEC INR (0.9-1.1) APTT (26.0-36.4) SEC Sodium 131 L (135-145) mmol/L Potassium 4.3 (3.3-5.1) mmol/L Chloride 96 (96-108) mmol/L Carbon Dioxide 24 (22-29) mmol/L Anion Gap 15 (12-20) BUN 21 H (9-16) mg/dL Creatinine 0.80 (0.5-1.4) mg/dL Estim Creat Clear Calc 66.1 Estimated GFR > 60 Random Glucose 271 H (60-115) mg/dL Lactic Acid 1.4 (0.5-2.0) mmol/L Calcium 10.1 (8.4-10.2) mg/dL Iron 27 L (30-160) mcg/dL TIBC 233 (228-428) mcg/dL % Saturation 12 L (15-50) % Unsat Iron Binding 206 ug/dL Total Bilirubin 0.2 (0.0-1.0) mg/dL Direct Bilirubin < 0.2 (0.0-0.5) mg/dL AST 15 (5-31) U/L ALT 12 (0-31) U/L Alkaline Phosphatase 96 (39-117) U/L C-Reactive Protein 7.54 H (< or = 0.50) mg/dL Total Protein 6.1 L (6.5-8.0) g/dL Albumin 3.3 L (3.5-5.0) g/dL Stool Occult Blood NEGATIVE (NEGATIVE) Independent Interpretation I performed an independent interpretation of an: Plain X-Ray Radiology Impression Discussion of test interpretation with radiology: I have reviewed the radiologist's reading. Radiologist Impression: Moderate soft tissue swelling is seen in the fourth digit. There is a comminuted fracture and deformity of the proximal phalanx with erosive changes distally. The fracture proximally extends proximally into the fourth metatarsophalangeal joint. There is malalignment of the proximal interphalangeal joint. The remainder the digits are intact. There is acute appearing, minimally displaced fracture at the base of the fifth metatarsal. The tarsal bones are normally aligned. XR/XR foot RT 2V IMPRESSION: 1.? Moderate soft tissue swelling in the fourth digit with comminuted fracture and deformity of the proximal phalanx concerning for pathologic fracture. Erosive changes distally is are concerning for osteomyelitis. 2.? Acute appearing minimally displaced fracture at the base of the fifth metatarsal. Correlate with physical exam. IMPRESSION: ? 1. Acute, mildly displaced fracture of the proximal phalanx of the fourth digit. This could be traumatic or pathologic. 2. Mild soft tissue irregularity distally in the fourth digit. Definitive erosive changes are not visualized apart from the fracture. Critical Care Time Critical Care Time Critical Care Time: Yes Total Critical Care Time: 60 Attestation: I have personally provided critical care time. Time includes review of lab data, radiology results, discussion with consultants, and monitoring for potential decompensation. Intervention performed as documented. Discharge Plan Discharge Clinical Impression: Osteomyelitis Patient Disposition: Admitted As Inpatient Prescriptions: No Action atorvastatin 80 mg Tablet 80 mg PO BEDTIME Qty: 30 1RF clonidine HCl 0.1 mg Tablet 0.1 mg PO BID Qty: 60 1RF Protocol: Hold for SBP< HOLD for SBP < : 90 aspirin 81 mg Tablet,Delayed Release (Dr/Ec) 81 mg PO DAILY Qty: 30 0RF amlodipine 10 mg Tablet 10 mg PO DAILY Qty: 30 1RF Protocol: Hold for SBP< HOLD for SBP < : 90 lisinopril 10 mg Tablet 10 mg PO DAILY Qty: 30 1RF Protocol: Hold for SBP< HOLD for SBP < : 90 insulin lispro [Humalog U-100 Insulin] 100 unit/mL Solution See Protocol subcut QIDACHS Qty: 10 1RF Protocol: Insulin Correction Scale Less than or equal to 110 ---- Give (units): 0 111 to 150 Give (units): 0 151 to 200 Give (units): 2 201 to 250 Give (units): 4 251 to 300 Give (units): 6 301 to 350 Give (units): 8 Greater than 350 Give (units): 10 Call MD if Blood Glucose > : 350 (DME) insulin admin supplies Insulin Pen See Rx Instructions .Route Qty: 1 0RF Rx Instructions: As directed trazodone 100 mg tablet 150 mg PO BEDTIME olanzapine 15 mg tablet 1 tab PO BID levetiracetam [Keppra] 750 mg Tablet 750 mg PO BID insulin glargine [Lantus U-100 Insulin] 100 unit/mL solution 26 unit subcut DAILY metformin 750 mg tablet extended release 24 hr 750 mg PO BEDTIME
[2023-03-04 16:06] LABS: MANUAL DIFF FLAG NO
[2023-03-04 16:14] LABS: Basophils Percent Auto 0.1 % (0-2); Eosinophils Percent Auto 0.1 % (0-4); Hematocrit 25.3 % (37.0-47.0); Hemoglobin 8.4 g/dl (12.0-16.0); Imm Gran Abs Auto 0.11 X10*3/uL (0.00-0.03); Imm Gran Pct Auto 0.7 % (0.0-0.4); Lymphocytes Absolute Auto 1.1 X10*3/uL (1.2-4.9); Lymphocytes Percent Auto 6.8 % (20-40); Mean Corpuscular HGB Conc 33.2 g/dl (31.0-35.0); Mean Corpuscular Hemoglobin 29.2 pg (27.0-33.0); Mean Corpuscular Volume 87.8 fL (80.0-98.0); Mean Platelet Volume 8.4 fL (9.4-12.3); Monocytes Absolute Auto 0.9 X10*3/uL (0.1-1.2); Monocytes Percent Auto 5.6 % (2-11); Neutrophils Absolute Auto 14.4 x10*3/uL (2.0-8.3); Neutrophils Percent Auto 86.7 % (45-73); Platelet Count 459 X10*3/uL (160-400); Red Blood Count 2.88 X10*6/uL (4.20-5.50); Red Cell Distribution Width 12.9 % (11.0-16.0); White Blood Count 16.7 X10*3/uL (4.8-10.8)
[2023-03-04] MEDS: 0.9 % Sodium Chloride 2,000 ML 999 ML IVCONT (16:34)
[2023-03-04 16:35] LABS: Prothrombin Time 12.2 SEC (11.1-13.3)
[2023-03-04 16:37] LABS: Partial Thromboplastin Time 25.8 SEC (26.0-36.4)
--- NOTE | 2023-03-04 16:47 | PC.NURSE ---
sent from urgent care for necrotic toes on bilateral feet - foul odor from toes. iv established by ems, labs drawn and sent. fluids infusing. pt continuously asking for food and how she will be transported back to group home in [place].
[2023-03-04 16:51] LABS: Lactic Acid 1.4 mmol/L (0.5-2.0)
[2023-03-04] MEDS: Piperacillin Sodium/Tazobactam 3.375 GM in 0.9 % Sodium Chloride 50 ML IV ×2 (16:53→22:59)
--- NOTE | 2023-03-04 16:59 | PC.NURSE ---
antibiotics infusing, pt resting comfortably
[2023-03-04 17:06] LABS: Erythrocyte Sedimentation Rate 85 MM/HR (0-20)
[2023-03-04 17:14] LABS: Alanine Aminotransferase 12 U/L (0-31); Albumin Level 3.3 g/dL (3.5-5.0); Alkaline Phosphatase 96 U/L (39-117); Anion Gap 15 (12-20); Aspartate Amino Transferase 15 U/L (5-31); Bilirubin Direct < 0.2 mg/dL (0.0-0.5); Bilirubin Total 0.2 mg/dL (0.0-1.0); Blood Urea Nitrogen 21 mg/dL (9-16); C Reactive Protein 7.54 mg/dL (< or = 0.50); Calcium 10.1 mg/dL (8.4-10.2); Carbon Dioxide 24 mmol/L (22-29); Chloride 96 mmol/L (96-108); Creatinine Clr Calc Pharmacy 66.1; Estimated Glomerular Filt Rate > 60; Glucose Random 271 mg/dL (60-115); Potassium 4.3 mmol/L (3.3-5.1); Sodium 131 mmol/L (135-145); Total Protein 6.1 g/dL (6.5-8.0)
--- NOTE | 2023-03-04 17:39 | PHA.MEDREC ---
Addendum entered by Rowdy Fowler 03/05/23 08:50: Called [facility], Per pharmacy, patient is taking lisinopril 10mg daily, amlodipine 10mg daily, and Keppra 750mg BID. However, Pharmacy states that the patient has not refilled olanzapine (10mg AM,20mg PM) and trazodone 50mg prescription since the beginning of January. Pharmacy states that patient's 150mg trazodone prescription was voided, and the only active one was 50mg at bedtime. Went into home med list and changed trazodone to 50mg and left because patient told pharmacist Isi that she still takes it. Olanzapine removed from med list as was originally unconfirmed and patient's pharmacy confirmed that it's been a month since patient has refilled. Original Note: Pharmacy Consult ? Medication Reconciliation Pharmacy has completed the medication reconciliation. Patient reported medicatons. Utilize previous medication list to conduct interview. Patient is unsure about amlodipine so I left unconfirmed. When asked about carbamazepine patient confidently stated no. Patient was able to report insulin dose. Patient thinks she is on lisinopril. Patient reported her metformin dose as 750 mg. Patient stated she is on Keppra, when asked about dose she said 750 mg and she thinks it is BID. Patient confirmed [facility] is where she gets all meds. Will have am pharmacist F/U. Isi Monique, EstradaD
[2023-03-04] MEDS: vancomycin HCL 1,500 MG in 0.9 % Sodium Chloride 500 ML 333.33 MG IV (17:56)
--- NOTE | 2023-03-04 18:16 | PC.NURSE ---
ambulates with steady gait to bathroom. pt states i'm ready to take a break from the antibiotics , pt made aware the importance of receiving iv antibiotics.
[2023-03-04 18:45] LABS: OBS Int Ctl Valid YES; OBS1 NEGATIVE (NEGATIVE)
[2023-03-04 19:06] LABS: Iron 27 mcg/dL (30-160); Percent Iron Saturation 12 % (15-50); Total Iron Binding Capacity 233 mcg/dL (228-428); Unsaturated Iron Binding 206 ug/dL
--- NOTE | 2023-03-04 19:24 | PC.NURSE ---
This property underwriter assumed care of pt at 1900, pt A&Ox3, pt reports intermittent pain 10/10 in 4th toe on right foot. Fluids running at ordered. Pt requesting PO fluids, gingeral given to pt. WCTM
--- NOTE | 2023-03-04 19:51 | P.HPHOSP_ITS ---
I agree with BHUMIKA note assessment and plan Being admitted for osteomyelitis, will treat with broad-spectrum IV antibiotics, Infectious Disease consult, for full H&P please see below History of Present Illness Date of Service: 03/04/23 Attending physician on admission: Jorge Davis Chief Complaint: Left toe pain Pt is a 57-year-old female with a PMH significant for?HTN, insulin-dependent diabetes type 2, HTN, seizure disorder, and bipolar disorder who presents to the ED with?bilateral toe pain for the past few weeks. Patient states she has noticed that two weeks ago the 4th digit on her left foot began turning black. Reports she knows this toe it is broken but is unable to clarify how she knows this or when the fracture may have occurred. Patient adamantly denies fracture in the toes of her right foot. Denies any trauma to her feet. She denies any pain or discharge from right toe but reports right 4th toe has been bleeding and has pain when she walks. Ambulates with a cane at baseline. Says both feet have been malodorous. Denies any hx of alcohol or illicit substance use but smokes 2- 3 packs of cigarettes a day. States she has been compliant with all of her me dications. Pt is currently homeless and living in a fci. Occasionally beligerant and combative, but redirectable. In the ED patient was tachycardic up to 107, tachypneic up 22, and hypertensive to 210/90. Labs were significant for leukocytosis of 16.7, H&H of 8.4/25.3, ESR 85, CRP 7.54, sodium 131, iron 27 with% saturation of 12. Renal function baseline. Hepatic function WNL. X-ray of left foot showed acute, mildly displaced fracture of the proximal phalanx of the 4th digit that could be traumatic or pathologic, with mild soft tissue irregularities distally in the 4th digit with no definitive erosive changes visualized. X-ray right foot found moderate soft tissue swelling of the 4th digit with commuted fracture and deformity of the proximal phalanx concerning for pathologic fracture with erosive changes distally concerning for osteomyelitis. Also acute appearing minimally displaced fracture at the base of the 5th metatarsal. Pt was treated with IVF, Zosyn, and vanco. Pt will be admitted to the hospital for treatment and further evaluation of osteomyelitis of 4th digits of right and left feet. Review of Systems Review of Systems: Fourth toe of right foot pain and bleeding with malodorous prurulent discharge Painless, malodorous necrosis of fourth toe of left foot Denies trauma, injury to feet No fever, chills, N/V Denies chest pain/pressure, palpitations No abdominal pain Yes all other systems are reviewed and are negative FOR[facility]LY [facility] Medical History Bipolar 1 disorder Diabetes Occipital cerebral infarction Seizure disorder Family History Father Diabetes Mother Stroke Social History Household Members: Other Housing: Homeless Do you presently have visiting nurse or other home services: No Patient Tobacco Use Status: Current everyday Tobacco user Tobacco use type: Cigarette Cigarette Packs Per Day: 2 Cigarettes Per Day: 40.0 Use of substances other than those prescribed or required for medical reasons: Yes Substance Use Type: Marijuana Substance Use Frequency: Occasionally Currently Displaying Signs/Symptoms of Drug Intoxication Withdrawal: No Have you been hit, kicked, punched, or otherwise hurt by someone within the past year? If so, by whom?: No Do you feel safe in your current relationship?: No Current Relationship Is there a partner from a previous relationship who is making you feel unsafe now?: No Are you made to feel afraid or neglected: No Are you DNR?: No Advance Directives: Yes Advance Directives on File: Yes Advance Directives Date on File: 09/12/21 Do you have thoughts of harming others: None Do you have a plan to hurt others: No Plan Recently lost weight without trying: No Nutrition Risks: No Nutritional Risk Patient : No : No Poor oral hygiene: No service: No Sexual orientation: Don't Know Meds Allergies Allergy/AdvReac Type Severity Reaction Status Date / Time haloperidol Allergy Severe Nausea and Verified 03/06/23 11:28 Vomiting lithium Allergy Severe Nausea and Verified 03/06/23 11:28 Vomiting latex Allergy Mild Itching Verified 03/06/23 11:28 Active Medications: Current Medications Pharmacy Consult (Consult Rx Perform Med Rec) 1 each MISCELLANE ONCE PRN PRN Reason: Consult order Home Medications Medication Instructions Recorded Confirmed Last Taken Type insulin glargine 100 unit/mL 26 unit subcut DAILY 03/04/23 03/04/23 03/04/23 History subcutaneous solution (Lantus U-100 Insulin) levetiracetam 750 mg tablet 750 mg PO BID 03/04/23 03/05/23 03/04/23 History (Keppra) metformin 750 mg tablet,extended 750 mg PO BEDTIME 03/04/23 03/04/23 03/04/23 History release 24 hr trazodone 50 mg tablet 50 mg PO BEDTIME 03/05/23 03/05/23 Unknown History Physical Exam Vital Signs and Narrative: Vital Signs: Last Vital Signs Temp 99.1 F 03/04/23 19:21 Pulse 107 H 03/04/23 19:21 Resp 17 03/04/23 19:21 BP 170/110 H 03/04/23 19:21 Pulse Ox 95 03/04/23 19:21 O2 Del Method Room Air 03/04/23 19:21 BMI result Body Mass Index 21.8 Constitutional: Alert, disheveled, in no acute distress. Mental Status: Oriented to person, place and time. Eyes: Pupils are equal, round, and reactive to light. Ear, Nose, and Throat: Oropharynx clear, mucous membranes moist. Ears and nose without deformities. Trachea midline. Poor dentition. Respiratory: Clear to auscultation bilaterally. No wheezing, rales, or rhonchi. Cardiovascular: S1, S2 regular. No murmurs, rubs, or gallops. Gastrointestinal: Abdomen soft, non-tender, non-distended. Normal bowel sounds. Neurologic: Cranial nerves II-XII are grossly intact bilaterally. No focal neurological deficits. Moves all extremities spontaneously. Skin: No rashes or lesions noted. Musculoskeletal: No cyanosis or clubbing. Extremities: Necrosis of fourth toe of left foot. Skin loss and prurulent discharge from fourth toe of right foot. Both feet malodorous. See pictures below. Psychiatric: Inititially combative and belligerent but redirectable and ultimately cooperative. Does not seem to be acutely manic. Results Labs 03/04/23 15:59 03/04/23 15:59 Labs: Laboratory Results - last 24 hr 03/04/23 03/04/23 03/04/23 15:59 15:59 15:59 MCV 87.8 MCH 29.2 MCHC 33.2 RDW 12.9 Plt Count 459 H MPV 8.4 L Immature Gran % (Auto) 0.7 H Neut % (Auto) 86.7 H Lymph % (Auto) 6.8 L [facility] % (Auto) 5.6 Eos % (Auto) 0.1 Baso % (Auto) 0.1 Lymph # (Auto) 1.1 L [facility] # (Auto) 0.9 Eos # (Auto) 0.0 Baso # (Auto) 0.0 Abs Immat Gran (auto) 0.11 H Absolute Neuts (auto) 14.4 H Absolute Nucleated RBC 0.000 Nucleated RBC % (auto) 0.0 ESR 85 H PT 12.2 INR 1.0 APTT 25.8 L Anion Gap Estim Creat Clear Calc Estimated GFR Random Glucose Lactic Acid Calcium Iron TIBC % Saturation Unsat Iron Binding Total Bilirubin Direct Bilirubin AST ALT Alkaline Phosphatase C-Reactive Protein Total Protein Albumin Stool Occult Blood 03/04/23 03/04/23 03/04/23 15:59 15:59 18:36 MCV MCH MCHC RDW Plt Count MPV Immature Gran % (Auto) Neut % (Auto) Lymph % (Auto) [facility] % (Auto) Eos % (Auto) Baso % (Auto) Lymph # (Auto) [facility] # (Auto) Eos # (Auto) Baso # (Auto) Abs Immat Gran (auto) Absolute Neuts (auto) Absolute Nucleated RBC Nucleated RBC % (auto) ESR PT INR APTT Anion Gap 15 Estim Creat Clear Calc 66.1 Estimated GFR > 60 Random Glucose 271 H Lactic Acid 1.4 Calcium 10.1 Iron 27 L TIBC 233 % Saturation 12 L Unsat Iron Binding 206 Total Bilirubin 0.2 Direct Bilirubin < 0.2 AST 15 ALT 12 Alkaline Phosphatase 96 C-Reactive Protein 7.54 H Total Protein 6.1 L Albumin 3.3 L Stool Occult Blood NEGATIVE Imaging Radiologist's Impressions: Impressions Foot X-Ray 03/04/23 16:20 IMPRESSION: 1. Acute, mildly displaced fracture of the proximal phalanx of the fourth digit. This could be traumatic or pathologic. 2. Mild soft tissue irregularity distally in the fourth digit. Definitive erosive changes are not visualized apart from the fracture. Foot X-Ray 03/04/23 16:20 IMPRESSION: 1. Moderate soft tissue swelling in the fourth digit with comminuted fracture and deformity of the proximal phalanx concerning for pathologic fracture. Erosive changes distally is are concerning for osteomyelitis. 2. Acute appearing minimally displaced fracture at the base of the fifth metatarsal. Correlate with physical exam. Assessment and Plan (1) Osteomyelitis of fourth toe of right foot: Status: Acute (2) Osteomyelitis of fourth toe of left foot: Status: Acute Plan Pt is a 57-year-old female with a PMH significant for?HTN, insulin-dependent diabetes type 2, HTN, seizure disorder, and bipolar disorder who presents to the ED with?bilateral toe pain for the past few weeks. Pt will be admitted to the hospital for treatment and further evaluation of osteomyelitis of 4th digits of right and left feet. Osteomyelitis of fourth digits of right and left feet 4th toe of left foot with obvious necrosis, 4th toe of right with x-ray evidence or erosive changes suggestive of osteomyelitis Pt with WBC, elevated ESR and CRP Patient meets sepsis criteria: WBC, tachypnea, tachycardia, no lactic acidosis Pt given IVF in ED IV abx: vanco and Zosyn, started 03/04/2023 Hold aspirin d/t possible surgical procedure tomorrow General surgery consult Bilateral toe fractures Xray shows fractures of bilateral 4th toes and 5th toe of right foot Unclear etiology: pt denies any trauma or injury to feet Analgesics for pain management Consider orthopedics consult depending on general surgery intervention Normocytic anemia Patient's H&H 8.4/25.3 with MCV 87.8 Iron and % saturation low Will check B12, folate Start on oral iron supplementation Seizure disorder Patient unspecified seizure disorder Patient on Keppra but dosage not confirmed until tomorrow a.m. Patient given Keppra 500 mg Resume home Keppra dosage once verified by Pharmacy Mood disorder Patient on Zyprexa but dosage not confirmed until tomorrow a.m. Given Zyprexa 10 mg p.o. for tonight Resume home Zyprexa dosage once verified by Pharmacy Insulin-dependent diabetes type 2 Hold home meds Sliding-scale insulin, Lantus HTN Continue lisinopril Continue amlodipine when dosage confirmed by Pharmacy Full Code Attending:?Dr. Davis DVT Prophylaxis: Pneumatic boots d/t possible surgical procedure tomorrow Pt will require a hospitalization of at least two nights for treatment of o steomyelitis of the fourth digits of left and right feet?with IV antibiotics and likely surgical procedure tomorrow. Time Spent With Patient Time: Total time managing care of this patient today ____ minutes. Quality Stroke Does the patient have a stroke diagnosis?: No VTE Prior VTE?: No VTE Risk Level:: Medical - moderate - high VTE Device Contraindication: N/A - Device Ordered VTE Drug Contraindication: Treatment Not Indicated
--- NOTE | 2023-03-04 20:13 | MHC.EDTECH ---
patient refused 2000 vitals sign RN Florin is aware ,pt had a diet lorie adriano to drink .
--- NOTE | 2023-03-04 20:21 | PC.NURSE ---
Pt ambulated around nurse station with tech x2. Pt reports pain on left foot, and requesting to walk around again. Pt told that told that she needs to elevate feet, and she started jumping up and down. Stating i need to exercise and move. Pt states she wants to leave refusing pain medication at this time, stating that it wont do anything, everything is being done against my will. Pt reassured, admitting PA notified, and at bedside speaking to Pt.
[2023-03-04] MEDS: Morphine Sulfate 4 MG/ML CARTRIDGE IVPUSH (21:18)
[2023-03-04] MEDS: levETIRAcetam 500 MG TABLET PO (21:19)
[2023-03-04] MEDS: OLANZapine 10 MG TABLET PO (21:19)
--- NOTE | 2023-03-04 21:24 | PHA.PROG ---
Admission Date/Time: Indication: Osteomylitis Weight in k.7 kg Adjusted body weight in K.9 kg [place] body weight in K.7 kg Obesity Dosing Indication % IBW:105% Serum Creatinine - Last 168 Hours 03/04/23 15:59 Creatinine 0.80 Estimated CrCl and GFR - Last 168 Hours 03/04/23 15:59 Estim Creat Clear Calc 66.1 Estimated GFR > 60 Vancomycin Loading Dose: 1500 mg (26 mg/kg) Current Vancomycin Dosing Regimen: 750 mg Q12H Date and Time for next Vancomycin Level to be drawn: 03/05 @ 1400 Pharmacist Comments on Vancomycin Plan: Patient received an adequate load dose in the ER 03/04 @ 1506 Maintenance dose vancomycin 750 mg Q12H is scheduled to start 03/05 @ 0300. Expected AUC 508 with a trough of 16.2 Random level is scheduled prior to the 3rd dose so that it can be evaluated by in-house pharmacy staff Pharmacy will monitor renal function daily Isi Monique PharmD Vancomycin dosing will take advantage of [employer] as a clinical decision support tool that uses Bayesian modeling to calculate individual patient's pharmacokinetic parameters and forecast the patient's drug concentration time course with the target goal AUC 24 range of 400 - 600 mg/L/hr.
[2023-03-04] MEDS: Atorvastatin Calcium 80 MG TABLET PO (21:40)
[2023-03-04] MEDS: cloNIDine HCL 0.1 MG TABLET PO (21:40)
[2023-03-04] MEDS: traZODone HCL 50 MG TABLET 150 MG PO (21:40)
[2023-03-04] MEDS: Acetaminophen 325 MG TABLET 650 MG PO (22:53)
--- NOTE | 2023-03-05 00:25 | PC.NURSE ---
RN to RN report given to Alison pt will be transported to room 372. Pt aware of plan.
[2023-03-05] MEDS: 0.9 % Sodium Chloride Flush 3 ML SYRINGE IVFLUSH ×4 (00:56→23:19)
[2023-03-05 01:37] VITALS: BP 186/88; PULSE 92; RESP 16; TEMP 36.1; O2SAT 93
[2023-03-05] MEDS: vancomycin HCL 750 MG in 0.9 % Sodium Chloride 250 ML 265 MG IV (02:48)
[2023-03-05] MEDS: Piperacillin Sodium/Tazobactam 3.375 GM in 0.9 % Sodium Chloride 50 ML IV ×4 (05:06→22:38)
[2023-03-05 07:06] LABS: Blood Urea Nitrogen 10 mg/dL (9-16); Calcium 9.1 mg/dL (8.4-10.2); Creatinine Clr Calc Pharmacy 86.8; Estimated Glomerular Filt Rate > 60; Glucose Random 182 mg/dL (60-115)
--- NOTE | 2023-03-05 07:21 | HO.PM.IMPN ---
Subjective Subjective Date of Service: 03/05/23 Interval History: f/u on osteomylitis interval history: hallucinating Physical Exam Vital Signs: Vital Signs: Last Vital Signs Temp 96.9 F 03/05/23 01:37 Pulse 92 03/05/23 01:37 Resp 16 03/05/23 01:37 BP 186/88 H 03/05/23 01:37 Pulse Ox 93 03/05/23 01:37 O2 Del Method Room Air 03/05/23 01:37 BMI result Body Mass Index 21.8 Const: Other: General: confusion, hallucinating Resp: CTA bilateral CVS: S1,S2,RRR GI: +BS, NT, no distention Skin: No rash Neuro: motor grossly intact Psych: appropriate affect Objective Data Active Medications Acetaminophen (Acetaminophen 325 Mg Tablet) 650 mg PO Q6H PRN PRN Reason: Pain, Mild (Pain Scale 1-3) Last Admin: 03/04/23 22:53 Dose: 650 mg Documented By: HEBER Atorvastatin Calcium (Atorvastatin Calcium 80 Mg Tablet) 80 mg PO BEDTIME [facility] Last Admin: 03/04/23 21:40 Dose: 80 mg Documented By: HEBER Clonidine HCl (Clonidine Hcl 0.1 Mg Tablet) 0.1 mg PO BID [facility]; Protocol Last Admin: 03/04/23 21:40 Dose: 0.1 mg Documented By: HEBER Dextrose (Dextrose 50 % 25 Gm/50 Ml Syringe) 25 gm IVPUSH Q15M PRN; Protocol PRN Reason: per Hypoglycemia Standing Ord. Docusate Sodium (Docusate Sodium 100 Mg Capsule) 100 mg PO DAILY PRN PRN Reason: Constipation Ferrous Sulfate (Ferrous Sulfate 300 Mg/5 Ml Liquid) 300 mg PO BIDWM [facility] Glucose (Glucose Gel 15 Gm Gel..Gram.) 15 gm PO Q15M PRN; Protocol PRN Reason: per Hypoglycemia Standing Ord. Piperacillin Sod/Tazobactam (Sod 3.375 gm/ Sodium Chloride) 50 mls @ 100 mls/hr IV Q6H [facility] Last Infusion: 03/05/23 05:37 Dose: 0 mls/hr Documented By: DEBBIE Vancomycin HCl 750 mg/ Sodium (Chloride) 265 mls @ 265 mls/hr IV Q12H [facility] Last Infusion: 03/05/23 03:55 Dose: 0 mls/hr Documented By: DEBBIE Insulin Human Lispro (Insulin Lispro 100 Unit/Ml 3 Ml Vial) 0.1 - 10 unit SUBCUT QIDACHS [facility]; Protocol Lisinopril (Lisinopril 10 Mg Tablet) 10 mg PO DAILY [facility]; Protocol Morphine Sulfate (Morphine Sulfate 4 Mg/Ml Cartridge) 4 mg IVPUSH Q4H PRN; Protocol PRN Reason: Pain, Severe (Pain Scale 7-10) Last Admin: 03/04/23 21:18 Dose: 4 mg Documented By: HEBER Ondansetron HCl (Ondansetron Hcl 4 Mg/2 Ml Vial) 4 mg IVPUSH Q8H PRN PRN Reason: Nausea and Vomiting Pharmacy Consult (Consult Rx Perform Med Rec) 1 each MISCELLANE ONCE PRN PRN Reason: Consult order Pharmacy Consult (Consult Rx Vancomycin Dosing) 1 each MISCELLANE DAILY PRN PRN Reason: Consult order Sodium Chloride (0.9 % Sodium Chloride Flush 3 Ml Syringe) 3 ml IVFLUSH QSHIFT [facility] Last Admin: 03/05/23 00:56 Dose: 3 ml Documented By: HEBER Trazodone HCl (Trazodone Hcl 50 Mg Tablet) 150 mg PO BEDTIME [facility] Last Admin: 03/04/23 21:40 Dose: 150 mg Documented By: HEBER Labs 03/04/23 15:59 03/05/23 05:29 Labs: Laboratory Results - last 24 hr 03/04/23 03/04/23 03/04/23 15:59 15:59 15:59 MCV 87.8 MCH 29.2 MCHC 33.2 RDW 12.9 Plt Count 459 H MPV 8.4 L Immature Gran % (Auto) 0.7 H Neut % (Auto) 86.7 H Lymph % (Auto) 6.8 L [place] % (Auto) 5.6 Eos % (Auto) 0.1 Baso % (Auto) 0.1 Lymph # (Auto) 1.1 L [place] # (Auto) 0.9 Eos # (Auto) 0.0 Baso # (Auto) 0.0 Abs Immat Gran (auto) 0.11 H Absolute Neuts (auto) 14.4 H Absolute Nucleated RBC 0.000 Nucleated RBC % (auto) 0.0 ESR 85 H PT 12.2 INR 1.0 APTT 25.8 L Anion Gap Estim Creat Clear Calc Estimated GFR Random Glucose Lactic Acid Calcium Iron TIBC % Saturation Unsat Iron Binding Total Bilirubin Direct Bilirubin AST ALT Alkaline Phosphatase C-Reactive Protein Total Protein Albumin Stool Occult Blood 03/04/23 03/04/23 03/04/23 15:59 15:59 18:36 MCV MCH MCHC RDW Plt Count MPV Immature Gran % (Auto) Neut % (Auto) Lymph % (Auto) [place] % (Auto) Eos % (Auto) Baso % (Auto) Lymph # (Auto) [place] # (Auto) Eos # (Auto) Baso # (Auto) Abs Immat Gran (auto) Absolute Neuts (auto) Absolute Nucleated RBC Nucleated RBC % (auto) ESR PT INR APTT Anion Gap 15 Estim Creat Clear Calc 66.1 Estimated GFR > 60 Random Glucose 271 H Lactic Acid 1.4 Calcium 10.1 Iron 27 L TIBC 233 % Saturation 12 L Unsat Iron Binding 206 Total Bilirubin 0.2 Direct Bilirubin < 0.2 AST 15 ALT 12 Alkaline Phosphatase 96 C-Reactive Protein 7.54 H Total Protein 6.1 L Albumin 3.3 L Stool Occult Blood NEGATIVE 03/05/23 03/05/23 05:29 05:29 MCV MCH MCHC RDW Plt Count MPV Immature Gran % (Auto) Neut % (Auto) Lymph % (Auto) [place] % (Auto) Eos % (Auto) Baso % (Auto) Lymph # (Auto) [place] # (Auto) Eos # (Auto) Baso # (Auto) Abs Immat Gran (auto) Absolute Neuts (auto) Absolute Nucleated RBC Nucleated RBC % (auto) ESR PT INR APTT Anion Gap Estim Creat Clear Calc Cancelled 86.8 Estimated GFR Cancelled > 60 Random Glucose 182 H Lactic Acid Calcium 9.1 D Iron TIBC % Saturation Unsat Iron Binding Total Bilirubin Direct Bilirubin AST ALT Alkaline Phosphatase C-Reactive Protein Total Protein Albumin Stool Occult Blood Assessment and Plan (1) Osteomyelitis of fourth toe of left foot: Status: Acute (2) Osteomyelitis of fourth toe of right foot: Status: Acute Plan Pt is a 57-year-old female with a PMH significant for?HTN, insulin-dependent diabetes type 2, HTN, seizure disorder, and bipolar disorder who presents to the ED with?bilateral toe pain for the past few weeks.? Pt will be admitted to the hospital for treatment and further evaluation of osteomyelitis of 4th digits of right and left feet. Sepsis due to acute Osteomyelitis of the 4th toe of left foot with obvious necrosis, 4th toe of right with x-ray evidence or erosive changes suggestive of osteomyelitis elevated WBC, elevated ESR and CRP Zosyn+Vanco 03/04, Surgery consult for possible need for ampuation, ID consult for guide in Abx selection and lenght of treatment Bilateral toe fractures Xray shows fractures of bilateral 4th toes and 5th toe of right foot Unclear etiology: pt denies any trauma or injury to feet Analgesics for pain management Consider orthopedics consult depending on general surgery intervention Normocytic anemia Patient's H&H 8.4/25.3 with MCV 87.8 Iron and % saturation low Will check B12, folate oral iron supplementation Seizure disorder Patient unspecified seizure disorder Patient on Keppra but dosage not confirmed until tomorrow a.m. Patient given Keppra 500 mg Resume home Keppra dosage once verified by Pharmacy Hypokalemia--po kcl Mood disorder Patient on Zyprexa but dosage not confirmed until tomorrow a.m. Given Zyprexa 10 mg p.o. for tonight Resume home Zyprexa dosage once verified by Pharmacy Insulin-dependent diabetes type 2 Hold home meds Sliding-scale insulin, Lantus HTN Continue lisinopril Continue amlodipine when dosage confirmed by Pharmacy Full Code DVT Prophylaxis:? Pneumatic boots d/t possible surgical procedure tomorrow need for inpt: treatment of osteomylitis with IV Abx Time Spent With Patient Time: Total time managing care of this patient today ____ minutes. Quality Stroke Does the patient have a stroke diagnosis?: No VTE Prior VTE?: No VTE Risk Level:: Medical - moderate - high VTE Device Contraindication: N/A - Device Ordered VTE Drug Contraindication: Treatment Not Indicated
[2023-03-05 07:24] LABS: Folate 7.7 ng/mL (> or = 4.0); Vitamin B12 381 pg/mL (200-900)
[2023-03-05 07:28] LABS: Anion Gap 10 (12-20); Carbon Dioxide 24 mmol/L (22-29); Chloride 102 mmol/L (96-108); Potassium 3.2 mmol/L (3.3-5.1); Sodium 133 mmol/L (135-145)
[2023-03-05 07:34] LABS: Glucose, Whole Blood 181 mg/dL (60-115)
[2023-03-05 07:59] VITALS: BP 201/87; PULSE 99; RESP 17; TEMP 36.3; O2SAT 96
[2023-03-05] MEDS: cloNIDine HCL 0.1 MG TABLET PO ×2 (08:30→20:25)
[2023-03-05] MEDS: Insulin Lispro 100 UNIT/ML 3 ML VIAL SUBCUT ×4 (08:30→20:25)
[2023-03-05] MEDS: Ferrous Sulfate 300 MG/5 ML LIQUID PO ×2 (08:30→16:59)
[2023-03-05] MEDS: lisinopriL 10 MG TABLET PO (08:30)
--- NOTE | 2023-03-05 09:10 | P.CONGS_ITS ---
History of Present Illness Consult details Consult date: 03/05/23 Requesting physician: Jorge Davis Narrative: 57-year-old female patient presenting with 4th toe ulcers. Past medical history is significant for hypertension, type 2 diabetes, seizure disorder, bip olar disorder presenting with bilateral toe pain several weeks. She reports black changes to the left 4th toe drainage from the right 4th toe. There has been foul-smelling discharge from both wounds. She reports smoking 2-3 packs of cigarettes per day. Admitting laboratories revealed WBC of 16.7 and x-ray of the left foot is revealed a mildly displaced fracture of the proximal phalanx of the 4th digit. x-ray of the right foot reveals minor swelling at the 4th digit with a comminuted fracture and deformity at the proximal phalanx concerning for pathologic fracture /osteomyelitis. Displaced fractures also noted at the 5th metatarsal. Surgical consultation was requested for further management of the bilateral osteomyelitis. Review of Systems Review of Systems: Yes all other systems are reviewed and are negative PMFSH Past Medical History Medical History Bipolar 1 disorder Diabetes Occipital cerebral infarction Seizure disorder Family History Family History Father Diabetes Mother Stroke Social History Social History Household Members: Other Housing: Homeless Do you presently have visiting nurse or other home services: No Patient Tobacco Use Status: Current everyday Tobacco user Tobacco use type: Cigarette Substance Use Type: Marijuana Advance Directives Date on File: 09/12/21 service: No Sexual orientation: Don't Know Meds Allergies Allergy/AdvReac Type Severity Reaction Status Date / Time haloperidol Allergy Unknown Unknown Verified 03/07/22 08:38 lithium Allergy Unknown Unknown Verified 03/07/22 08:38 latex Allergy Unknown Verified 01/15/23 13:15 Active Medications: Current Medications Acetaminophen (Acetaminophen 325 Mg Tablet) 650 mg PO Q6H PRN PRN Reason: Pain, Mild (Pain Scale 1-3) Last Admin: 03/04/23 22:53 Dose: 650 mg Atorvastatin Calcium (Atorvastatin Calcium 80 Mg Tablet) 80 mg PO BEDTIME ONEL Last Admin: 03/04/23 21:40 Dose: 80 mg Clonidine HCl (Clonidine Hcl 0.1 Mg Tablet) 0.1 mg PO BID [facility]; Protocol Last Admin: 03/05/23 08:30 Dose: 0.1 mg Dextrose (Dextrose 50 % 25 Gm/50 Ml Syringe) 25 gm IVPUSH Q15M PRN; Protocol PRN Reason: per Hypoglycemia Standing Ord. Docusate Sodium (Docusate Sodium 100 Mg Capsule) 100 mg PO DAILY PRN PRN Reason: Constipation Ferrous Sulfate (Ferrous Sulfate 300 Mg/5 Ml Liquid) 300 mg PO BIDWM [facility] Last Admin: 03/05/23 08:30 Dose: 300 mg Glucose (Glucose Gel 15 Gm Gel..Gram.) 15 gm PO Q15M PRN; Protocol PRN Reason: per Hypoglycemia Standing Ord. Piperacillin Sod/Tazobactam (Sod 3.375 gm/ Sodium Chloride) 50 mls @ 100 mls/hr IV Q6H [facility] Last Infusion: 03/05/23 05:37 Dose: Infused Vancomycin HCl 750 mg/ Sodium (Chloride) 265 mls @ 265 mls/hr IV Q12H [facility] Last Infusion: 03/05/23 03:55 Dose: Infused Insulin Human Lispro (Insulin Lispro 100 Unit/Ml 3 Ml Vial) 0.1 - 10 unit SUBCUT QIDACHS [facility]; Protocol Last Admin: 03/05/23 08:30 Dose: 2 unit Lisinopril (Lisinopril 10 Mg Tablet) 10 mg PO DAILY [facility]; Protocol Last Admin: 03/05/23 08:30 Dose: 10 mg Morphine Sulfate (Morphine Sulfate 4 Mg/Ml Cartridge) 4 mg IVPUSH Q4H PRN; Protocol PRN Reason: Pain, Severe (Pain Scale 7-10) Last Admin: 03/04/23 21:18 Dose: 4 mg Ondansetron HCl (Ondansetron Hcl 4 Mg/2 Ml Vial) 4 mg IVPUSH Q8H PRN PRN Reason: Nausea and Vomiting Pharmacy Consult (Consult Rx Perform Med Rec) 1 each MISCELLANE ONCE PRN PRN Reason: Consult order Pharmacy Consult (Consult Rx Vancomycin Dosing) 1 each MISCELLANE DAILY PRN PRN Reason: Consult order Sodium Chloride (0.9 % Sodium Chloride Flush 3 Ml Syringe) [facility] Last Admin: 03/05/23 08:30 Dose: 3 ml Trazodone HCl (Trazodone Hcl 50 Mg Tablet) 150 mg PO BEDTIME ONEL Last Admin: 03/04/23 21:40 Dose: 150 mg Home Medications Medication Instructions Recorded Confirmed Last Taken Type insulin glargine 100 unit/mL 26 unit subcut DAILY 03/04/23 03/04/23 03/04/23 History subcutaneous solution (Lantus U-100 Insulin) levetiracetam 750 mg tablet 750 mg PO BID 03/04/23 03/05/23 03/04/23 History (Keppra) metformin 750 mg tablet,extended 750 mg PO BEDTIME 03/04/23 03/04/23 03/04/23 History release 24 hr trazodone 50 mg tablet 50 mg PO BEDTIME 03/05/23 03/05/23 Unknown History Physical Exam Vital Signs: Vital Signs: Last Vital Signs Temp 97.4 F 03/05/23 07:59 Pulse 99 03/05/23 07:59 Resp 17 03/05/23 07:59 BP 201/87 H 03/05/23 07:59 Pulse Ox 96 03/05/23 07:59 O2 Del Method Room Air 03/05/23 07:59 BMI result Body Mass Index 21.8 Const: General: cooperative and no acute distress Nutritional Appearance: well nourished Orientation/consciousness: patient oriented x3 Limitations: no limitations HEENT: Head: Yes normocephalic and Yes atraumatic Ears: hearing grossly normal bilaterally Resp: Effort & Inspection: normal respiratory effort, no audible wheezes, no cough and no respiratory distress Cardio: Jugular venous distension: no JVD GI: Inspection: Yes normal to inspection Skin: Other: Warm, dry, no rash Neuro: General: patient oriented x3 Extrem: Other: Right foot with open wound at the lateral surface of the 4th toe at the 2nd phalanx corresponding to pressure from the nail of the 5th toe which is turned inward. An open wound measuring approximately 2.5 cm in diameter is identified with necrotic tissue at the base. Remaining toes are intact but nails are well over grown. Left foot with necrotic changes to the tip of the 4th toe similar to the right foot with foul-smelling discharge. Once again nails are overgrown in the left foot. General: Yes no clubbing, cyanosis or edema Results Labs 03/04/23 15:59 03/05/23 05:29 Labs: Abnormal lab results 03/04/23 03/04/23 03/04/23 Range/Units 15:59 15:59 15:59 WBC 16.7 H (4.8-10.8) X10*3/uL RBC 2.88 L D (4.20-5.50) X10*6/uL Hgb 8.4 L D (12.0-16.0) g/dl Hct 25.3 L D (37.0-47.0) % Plt Count 459 H (160-400) X10*3/uL MPV 8.4 L (9.4-12.3) fL Immature Gran % (Auto) 0.7 H (0.0-0.4) % Neut % (Auto) 86.7 H (45-73) % Lymph % (Auto) 6.8 L (20-40) % Lymph # (Auto) 1.1 L (1.2-4.9) X10*3/uL Abs Immat Gran (auto) 0.11 H (0.00-0.03) X10*3/uL Absolute Neuts (auto) 14.4 H (2.0-8.3) x10*3/uL ESR 85 H (0-20) MM/HR APTT 25.8 L (26.0-36.4) SEC Sodium (135-145) mmol/L Potassium (3.3-5.1) mmol/L Anion Gap (12-20) BUN (9-16) mg/dL POC Glucose (60-115) mg/dL Random Glucose (60-115) mg/dL Iron (30-160) mcg/dL % Saturation (15-50) % C-Reactive Protein (< or = 0.50) mg/dL Total Protein (6.5-8.0) g/dL Albumin (3.5-5.0) g/dL 03/04/23 03/05/23 03/05/23 Range/Units 15:59 05:29 07:24 WBC (4.8-10.8) X10*3/uL RBC (4.20-5.50) X10*6/uL Hgb (12.0-16.0) g/dl Hct (37.0-47.0) % Plt Count (160-400) X10*3/uL MPV (9.4-12.3) fL Immature Gran % (Auto) (0.0-0.4) % Neut % (Auto) (45-73) % Lymph % (Auto) (20-40) % Lymph # (Auto) (1.2-4.9) X10*3/uL Abs Immat Gran (auto) (0.00-0.03) X10*3/uL Absolute Neuts (auto) (2.0-8.3) x10*3/uL ESR (0-20) MM/HR APTT (26.0-36.4) SEC Sodium 131 L 133 L (135-145) mmol/L Potassium 3.2 L D (3.3-5.1) mmol/L Anion Gap 10 L (12-20) BUN 21 H (9-16) mg/dL POC Glucose 181 H (60-115) mg/dL Random Glucose 271 H 182 H (60-115) mg/dL Iron 27 L (30-160) mcg/dL % Saturation 12 L (15-50) % C-Reactive Protein 7.54 H (< or = 0.50) mg/dL Total Protein 6.1 L (6.5-8.0) g/dL Albumin 3.3 L (3.5-5.0) g/dL Short CBC 03/04/23 Range/Units 15:59 WBC 16.7 H (4.8-10.8) X10*3/uL Hgb 8.4 L D (12.0-16.0) g/dl Hct 25.3 L D (37.0-47.0) % Plt Count 459 H (160-400) X10*3/uL BMP 03/04/23 03/05/23 03/05/23 15:59 05:29 05:29 Sodium 131 L 133 L Potassium 4.3 3.2 L D Chloride 96 102 Carbon Dioxide 24 24 BUN 21 H 10 Creatinine 0.80 Cancelled 0.61 Calcium 10.1 9.1 D Liver Function 03/04/23 Range/Units 15:59 Total Bilirubin 0.2 (0.0-1.0) mg/dL Direct Bilirubin < 0.2 (0.0-0.5) mg/dL AST 15 (5-31) U/L ALT 12 (0-31) U/L Alkaline Phosphatase 96 (39-117) U/L Albumin 3.3 L (3.5-5.0) g/dL All other labs normal. Assessment and Plan (1) Osteomyelitis of fourth toe of left foot: Status: Acute (2) Osteomyelitis of fourth toe of right foot: Status: Acute Plan 57-year-old female patient presenting with bilateral 4th toe osteomyelitis. We discussed treatment management including prolonged antibiotics verses toe amputation. Prolonged antibiotics are unlikely to improve the current wounds therefore I recommended bilateral 4th toe amputation. I reviewed the procedure, alternatives and risks, including the possibility of non-healing of the wound. She consents to the bilateral 4th toe amputation and has been added onto the operative schedule for tomorrow. NPO after midnight. Time Spent With Patient Time: Total time managing care of this patient today ____ minutes. Procedures Date of Service Date of Service: 03/05/23
--- NOTE | 2023-03-05 09:17 | MHC.CM.PN ---
PT REPORTS SHE LIVES IN A PRISON, AT THE [facility] IN [place] SHE DENIES HAVING ANY COMMUNITY SERVICES REPORTS SHE USES A CANE AT TIMES PT SAYS SHE HAS A HCP NAMING HER COUSIN HER AGENT PCP: HONEY FU DCP TBD PT WOULD LIKE TO RETURN TO THE [facility] AND SAYS SHE IS NOT GOING TO REHAB HOWEVER, PT WILL HAVE TO GO TO REHAB IF SHE REQUIRES LT IV ABX
[2023-03-05 10:05] LABS: Hematocrit 31.1 % (37.0-47.0); Hemoglobin 10.8 g/dl (12.0-16.0); Mean Corpuscular HGB Conc 34.7 g/dl (31.0-35.0); Mean Corpuscular Hemoglobin 29.8 pg (27.0-33.0); Mean Corpuscular Volume 85.9 fL (80.0-98.0); Mean Platelet Volume 8.6 fL (9.4-12.3); Platelet Count 580 X10*3/uL (160-400); Red Blood Count 3.62 X10*6/uL (4.20-5.50); White Blood Count 12.2 X10*3/uL (4.8-10.8)
[2023-03-05 11:21] LABS: Glucose, Whole Blood 200 mg/dL (60-115)
[2023-03-05] MEDS: Potassium Chloride ER 20 MEQ TAB.ER.PRT PO (12:10)
[2023-03-05] MEDS: amLODIPine Besylate 10 MG TABLET PO (12:10)
[2023-03-05] MEDS: levETIRAcetam 250 MG TABLET 750 MG PO ×2 (12:10→20:25)
[2023-03-05 14:20] LABS: Vancomycin Random 5.6 mcg/mL (15-20)
--- NOTE | 2023-03-05 14:27 | HE.PHANOTE ---
Re; vanco dosing level obtained after only 2 doses but still quite low at 5.6. increased to 1250 q12 to treat more effectively due to osteomylitis indication. renal function good with scr 0.61. new level to be obtained 03/06 @1400.
[2023-03-05] MEDS: vancomycin HCL 1,250 MG in 0.9 % Sodium Chloride 250 ML 166.67 MG IV (14:59)
[2023-03-05 15:02] VITALS: BP 148/65; PULSE 97; RESP 18; TEMP 36.6; O2SAT 94
[2023-03-05] MEDS: Acetaminophen 325 MG TABLET 650 MG PO (15:55)
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
[2023-03-05 16:36] LABS: Glucose, Whole Blood 262 mg/dL (60-115)
[2023-03-05 19:00] VITALS: BP 142/72; PULSE 87; RESP 18; TEMP 36.6; O2SAT 95
[2023-03-05 20:06] LABS: Glucose, Whole Blood 200 mg/dL (60-115)
[2023-03-05] MEDS: metFORMIN HCl ER 750 MG TAB.ER.24H PO (20:25)
[2023-03-05] MEDS: traZODone HCL 100 MG TABLET PO (20:25)
[2023-03-05] MEDS: OLANZapine 10 MG TABLET PO (20:26)
[2023-03-05] MEDS: Atorvastatin Calcium 80 MG TABLET PO (20:26)
[2023-03-06] VITALS (12 sets, daily range): BP systolic 97–228; BP diastolic 53–101; PULSE 64–110; RESP 14–20; TEMP 36.1–36.9; O2SAT 93–99
[2023-03-06] MEDS: vancomycin HCL 1,250 MG in 0.9 % Sodium Chloride 250 ML 166.67 MG IV (02:24)
[2023-03-06] MEDS: Piperacillin Sodium/Tazobactam 3.375 GM in 0.9 % Sodium Chloride 50 ML IV ×3 (04:10→22:58)
[2023-03-06 06:52] LABS: Anion Gap 12 (12-20); Blood Urea Nitrogen 7 mg/dL (9-16); Calcium 9.4 mg/dL (8.4-10.2); Carbon Dioxide 26 mmol/L (22-29); Chloride 100 mmol/L (96-108); Creatinine Clr Calc Pharmacy 91.3; Estimated Glomerular Filt Rate > 60; Glucose Random 164 mg/dL (60-115); Potassium 3.8 mmol/L (3.3-5.1); Sodium 134 mmol/L (135-145)
[2023-03-06 07:19] LABS: Glucose, Whole Blood 169 mg/dL (60-115)
[2023-03-06] MEDS: cloNIDine HCL 0.1 MG TABLET PO ×2 (07:22→20:05)
[2023-03-06] MEDS: lisinopriL 10 MG TABLET PO ×2 (07:22→09:33)
[2023-03-06] MEDS: amLODIPine Besylate 10 MG TABLET PO (07:22)
--- NOTE | 2023-03-06 07:59 | MHC.SHP ---
Pre-Procedural Eval Section A Date of Service: 03/06/23 The patient is an INPATIENT: Yes Section B Chief Complaint: Osteomyelitis of the toes Allergies: Allergies Allergy/AdvReac Type Severity Reaction Status Date / Time haloperidol Allergy Unknown Unknown Verified 03/07/22 08:38 lithium Allergy Unknown Unknown Verified 03/07/22 08:38 latex Allergy Unknown Verified 01/15/23 13:15 Plan Diagnosis/Plan: Unchanged I have reviewed the history and physical and performed a pertinent physical examination on my patient. No changes have occurred unless specified. Time Spent With Patient Time: Total time managing care of this patient today ____ minutes.
--- NOTE | 2023-03-06 08:35 | P.PNIM_ITS ---
Subjective Subjective Date of Service: 03/06/23 Interval History: f/u on osteomylitis interval history: hallucinating Physical Exam Vital Signs: Vital Signs: Last Vital Signs Temp 97.8 F 03/06/23 08:00 Pulse 93 03/06/23 08:00 Resp 17 03/06/23 08:00 BP 228/101 H 03/06/23 08:00 Pulse Ox 98 03/06/23 08:00 O2 Del Method Room Air 03/06/23 08:00 BMI result Body Mass Index 21.8 Const: Other: General: AO X 3, no acute distress Resp: CTA bilateral CVS: S1,S2,RRR GI: +BS, NT, no distention Skin: necrotic 4th digits of left and right feet noted, see pictures in h and p Neuro: motor grossly intact Psych: appropriate affect Objective Data Active Medications Acetaminophen (Acetaminophen 325 Mg Tablet) 650 mg PO Q6H PRN PRN Reason: Pain, Mild (Pain Scale 1-3) Last Admin: 03/05/23 15:55 Dose: 650 mg Documented By: JEANA Amlodipine Besylate (Amlodipine Besylate 10 Mg Tablet) 10 mg PO DAILY [facility]; Protocol Last Admin: 03/06/23 07:22 Dose: 10 mg Documented By: JEANA Aspirin (Aspirin Enteric Coated 81 Mg Tablet.) 81 mg PO DAILY [facility] Atorvastatin Calcium (Atorvastatin Calcium 80 Mg Tablet) 80 mg PO BEDTIME [facility] Last Admin: 03/05/23 20:26 Dose: 80 mg Documented By: DEBBIE Clonidine HCl (Clonidine Hcl 0.1 Mg Tablet) 0.1 mg PO BID [facility]; Protocol Last Admin: 03/06/23 07:22 Dose: 0.1 mg Documented By: JEANA Dextrose (Dextrose 50 % 25 Gm/50 Ml Syringe) 25 gm IVPUSH Q15M PRN; Protocol PRN Reason: per Hypoglycemia Standing Ord. Docusate Sodium (Docusate Sodium 100 Mg Capsule) 100 mg PO DAILY PRN PRN Reason: Constipation Ferrous Sulfate (Ferrous Sulfate 300 Mg/5 Ml Liquid) 300 mg PO BIDWM [facility] Last Admin: 03/05/23 16:59 Dose: 300 mg Documented By: JEANA Glucose (Glucose Gel 15 Gm Gel..Gram.) 15 gm PO Q15M PRN; Protocol PRN Reason: per Hypoglycemia Standing Ord. Piperacillin Sod/Tazobactam (Sod 3.375 gm/ Sodium Chloride) 50 mls @ 100 mls/hr IV Q6H [facility] Last Infusion: 03/06/23 04:44 Dose: 0 mls/hr Documented By: MEIR Vancomycin HCl 1,250 mg/ (Sodium Chloride) 250 mls @ 166.667 mls/hr IV Q12H [facility] Last Infusion: 03/06/23 03:54 Dose: 0 mls/hr Documented By: MEIR Insulin Glargine (Insulin Glargine,Hum.Rec.Anlog 100 Unit/Ml 10 Ml Vial) 10 unit SUBCUT DAILY [facility] Insulin Human Lispro (Insulin Lispro 100 Unit/Ml 3 Ml Vial) 0.1 - 10 unit SUB CUT QIDACHS [facility]; Protocol Last Admin: 03/06/23 08:29 Dose: Not Given Documented By: JEANA Non-Admin Reason: NPO Levetiracetam (Levetiracetam 250 Mg Tablet) 750 mg PO BID [facility] Last Admin: 03/05/23 20:25 Dose: 750 mg Documented By: DEBBIE Lisinopril (Lisinopril 10 Mg Tablet) 10 mg PO DAILY [facility]; Protocol Last Admin: 03/06/23 07:22 Dose: 10 mg Documented By: JEANA Lorazepam (Lorazepam 0.5 Mg Tablet) 0.5 mg PO Q6H PRN PRN Reason: Anxiety Metformin HCl (Metformin Hcl Er 750 Mg Tab.Er.24h) 750 mg PO BEDTIME [facility] Last Admin: 03/05/23 20:25 Dose: 750 mg Documented By: DEBBIE Morphine Sulfate (Morphine Sulfate 4 Mg/Ml Cartridge) 2 mg IVPUSH Q4H PRN; Protocol PRN Reason: Pain, Severe (Pain Scale 7-10) Olanzapine (Olanzapine 10 Mg Tablet) 10 mg PO BID [facility] Last Admin: 03/05/23 20:26 Dose: 10 mg Documented By: DEBBIE Olanzapine (Olanzapine 5 Mg Tablet) 5 mg PO Q6H PRN PRN Reason: agitation Ondansetron HCl (Ondansetron Hcl 4 Mg/2 Ml Vial) 4 mg IVPUSH Q8H PRN PRN Reason: Nausea and Vomiting Pharmacy Consult (Consult Rx Perform Med Rec) 1 each MISCELLANE ONCE PRN PRN Reason: Consult order Pharmacy Consult (Consult Rx Vancomycin Dosing) 1 each MISCELLANE DAILY PRN PRN Reason: Consult order Sodium Chloride (0.9 % Sodium Chloride Flush 3 Ml Syringe) 3 ml IVFLUSH QSHIFT [facility] Last Admin: 03/05/23 23:19 Dose: 3 ml Documented By: MEIR Trazodone HCl (Trazodone Hcl 100 Mg Tablet) 100 mg PO BEDTIME [facility] Last Admin: 03/05/23 20:25 Dose: 100 mg Documented By: DEBBIE Labs 03/05/23 09:16 03/06/23 05:27 Labs: Laboratory Results - last 24 hr 03/05/23 03/05/23 03/05/23 09:16 11:16 13:40 MCV 85.9 MCH 29.8 MCHC 34.7 RDW 13.0 Plt Count 580 H D MPV 8.6 L Absolute Nucleated RBC 0.000 Nucleated RBC % (auto) 0.0 Anion Gap Estim Creat Clear Calc Estimated GFR POC Glucose 200 H Random Glucose Calcium Random Vancomycin 5.6 L 03/05/23 03/05/23 03/06/23 16:33 20:00 05:27 MCV MCH MCHC RDW Plt Count MPV Absolute Nucleated RBC Nucleated RBC % (auto) Anion Gap 12 Estim Creat Clear Calc 91.3 Estimated GFR > 60 POC Glucose 262 H 200 H Random Glucose 164 H Calcium 9.4 Random Vancomycin 03/06/23 07:15 MCV MCH MCHC RDW Plt Count MPV Absolute Nucleated RBC Nucleated RBC % (auto) Anion Gap Estim Creat Clear Calc Estimated GFR POC Glucose 169 H Random Glucose Calcium Random Vancomycin Microbiology Microbiology Results: Microbiology 03/04/23 16:45 Blood Culture - Preliminary Blood - Venous No growth after 24 hours. 03/04/23 15:59 Blood Culture - Preliminary Blood - Venous No growth after 24 hours. Assessment and Plan (1) Osteomyelitis of fourth toe of left foot: Status: Acute (2) Osteomyelitis of fourth toe of right foot: Status: Acute Plan Pt is a 57-year-old female with a PMH significant for?HTN, insulin-dependent diabetes type 2, HTN, seizure disorder, and bipolar disorder who presents to the ED with?bilateral toe pain for the past few weeks.? Pt will be admitted to the hospital for treatment and further evaluation of osteomyelitis of 4th digits of right and left feet. Sepsis due to acute Osteomyelitis of the 4th toe of left foot with obvious necrosis, 4th toe of right with x-ray evidence or erosive changes suggestive of osteomyelitis elevated WBC, elevated ESR and CRP Zosyn+Vanco 03/04, for amputation, ID consult for guide in Abx selection and anahi ght of treatment Bilateral toe fractures Xray shows fractures of bilateral 4th toes and 5th toe of right foot Unclear etiology: pt denies any trauma or injury to feet Analgesics for pain management Consider orthopedics consult depending on general surgery intervention Normocytic anemia Patient's H&H 8.4/25.3 with MCV 87.8 Iron and % saturation low Will check B12, folate oral iron supplementation Seizure disorder Patient unspecified seizure disorder Patient on Keppra but dosage not confirmed until tomorrow a.m. Patient given Keppra 500 mg Resume home Keppra dosage once verified by Pharmacy Hypokalemia--po kcl and K is now normal Mood disorder seen by Psych 03/05 with recommendation for ?Olanzapine 10mg po BID, can have aditional doses of olanzapine 5mg po Q6h prn agitation. Can also consider lower dose ativan 0.5mg po q6h for anxiety , no Psychotic symptoms today Insulin-dependent diabetes type 2 continue Lantus at reduced dose, SSI, hold metformin HTN--accelerated BP, add PRN IV hydralazine Increase Lisinopril to 20 daily, continue Norvasc 10 daily Full Code DVT Prophylaxis:? Pneumatic boots d/t possible surgical procedure tomorrow need for inpt: treatment of osteomylitis with IV Abx Time Spent With Patient Time: Total time managing care of this patient today ____ minutes. Quality Stroke Does the patient have a stroke diagnosis?: No VTE Prior VTE?: No VTE Risk Level:: Medical - moderate - high VTE Device Contraindication: N/A - Device Ordered VTE Drug Contraindication: Treatment Not Indicated
[2023-03-06] MEDS: Ferrous Sulfate 300 MG/5 ML LIQUID PO ×2 (09:32→17:22)
[2023-03-06] MEDS: 0.9 % Sodium Chloride Flush 3 ML SYRINGE IVFLUSH ×2 (09:33→16:01)
[2023-03-06] MEDS: OLANZapine 10 MG TABLET PO ×2 (09:33→20:20)
[2023-03-06] MEDS: levETIRAcetam 250 MG TABLET 750 MG PO ×2 (09:33→20:05)
--- NOTE | 2023-03-06 10:54 | P.CONAN_ITS ---
[facility] Active Problems Active Problems: All Active Problems (Updated 03/05/23 @ 00:11 by JOSE Ramos) Osteomyelitis of fourth toe of left foot (Acute) Osteomyelitis of fourth toe of right foot (Acute) Osteomyelitis of toe of left foot (Acute) Osteomyelitis (Acute) Bipolar 1 disorder (Acute) Diabetes type 2, controlled (Acute) Metabolic encephalopathy (Acute) Past Medical History Medical History Bipolar 1 disorder Diabetes Occipital cerebral infarction Seizure disorder Family History Family History Father Diabetes Mother Stroke Surgical History History of Problems with Anesthesia: No Social History Social History Household Members: Other Housing: Homeless Do you presently have visiting nurse or other home services: No Patient Tobacco Use Status: Current everyday Tobacco user Tobacco use type: Cigarette Cigarette Packs Per Day: 2 Cigarettes Per Day: 40.0 Use of substances other than those prescribed or required for medical reasons: Yes Substance Use Type: Marijuana Substance Use Frequency: Occasionally Currently Displaying Signs/Symptoms of Drug Intoxication Withdrawal: No Have you been hit, kicked, punched, or otherwise hurt by someone within the past year? If so, by whom?: No Do you feel safe in your current relationship?: No Current Relationship Is there a partner from a previous relationship who is making you feel unsafe now?: No Are you made to feel afraid or neglected: No Are you DNR?: No Advance Directives: Yes Advance Directives on File: Yes Advance Directives Date on File: 09/12/21 Do you have thoughts of harming others: None Do you have a plan to hurt others: No Plan Recently lost weight without trying: No Nutrition Risks: No Nutritional Risk Patient : No : No Poor oral hygiene: No service: No Sexual orientation: Don't Know Meds Allergies Allergy/AdvReac Type Severity Reaction Status Date / Time haloperidol Allergy Severe Nausea and Verified 03/06/23 11:28 Vomiting lithium Allergy Severe Nausea and Verified 03/06/23 11:28 Vomiting latex Allergy Mild Itching Verified 03/06/23 11:28 Active Medications: Current Medications Acetaminophen (Acetaminophen 325 Mg Tablet) 650 mg PO Q6H PRN PRN Reason: Pain, Mild (Pain Scale 1-3) Last Admin: 03/05/23 15:55 Dose: 650 mg Amlodipine Besylate (Amlodipine Besylate 10 Mg Tablet) 10 mg PO DAILY [facility]; Protocol Last Admin: 03/06/23 07:22 Dose: 10 mg Aspirin (Aspirin Enteric Coated 81 Mg Tablet.Dr) 81 mg PO DAILY [facility] Last Admin: 03/06/23 09:27 Dose: Not Given Atorvastatin Calcium (Atorvastatin Calcium 80 Mg Tablet) 80 mg PO BEDTIME [facility] Last Admin: 03/05/23 20:26 Dose: 80 mg Clonidine HCl (Clonidine Hcl 0.1 Mg Tablet) 0.1 mg PO BID [facility]; Protocol Last Admin: 03/06/23 07:22 Dose: 0.1 mg Dextrose (Dextrose 50 % 25 Gm/50 Ml Syringe) 25 gm IVPUSH Q15M PRN; Protocol PRN Reason: per Hypoglycemia Standing Ord. Docusate Sodium (Docusate Sodium 100 Mg Capsule) 100 mg PO DAILY PRN PRN Reason: Constipation Ferrous Sulfate (Ferrous Sulfate 300 Mg/5 Ml Liquid) 300 mg PO BIDWM [facility] Last Admin: 03/06/23 09:32 Dose: 300 mg Glucose (Glucose Gel 15 Gm Gel..Gram.) 15 gm PO Q15M PRN; Protocol PRN Reason: per Hypoglycemia Standing Ord. Hydralazine HCl (Hydralazine Hcl 20 Mg/Ml Vial) 10 mg IVPUSH Q6H PRN PRN Reason: SBP > 190 Piperacillin Sod/Tazobactam (Sod 3.375 gm/ Sodium Chloride) 50 mls @ 100 mls/hr IV Q6H [facility] Last Infusion: 03/06/23 04:44 Dose: Infused Vancomycin HCl 1,250 mg/ (Sodium Chloride) 250 mls @ 166.667 mls/hr IV Q12H [facility] Last Infusion: 03/06/23 03:54 Dose: Infused Insulin Glargine (Insulin Glargine,Hum.Rec.Anlog 100 Unit/Ml 10 Ml Vial) 10 unit SUBCUT DAILY [facility] Last Admin: 03/06/23 09:36 Dose: Not Given Insulin Human Lispro (Insulin Lispro 100 Unit/Ml 3 Ml Vial) 0.1 - 10 unit SUBCUT QIDACHS [facility]; Protocol Last Admin: 03/06/23 08:29 Dose: Not Given Levetiracetam (Levetiracetam 250 Mg Tablet) 750 mg PO BID [facility] Last Admin: 03/06/23 09:33 Dose: 750 mg Lisinopril (Lisinopril 20 Mg Tablet) 20 mg PO DAILY [facility]; Protocol Lorazepam (Lorazepam 0.5 Mg Tablet) 0.5 mg PO Q6H PRN PRN Reason: Anxiety Morphine Sulfate (Morphine Sulfate 4 Mg/Ml Cartridge) 2 mg IVPUSH Q4H PRN; Protocol PRN Reason: Pain, Severe (Pain Scale 7-10) Olanzapine (Olanzapine 10 Mg Tablet) 10 mg PO BID [facility] Last Admin: 03/06/23 09:33 Dose: 10 mg Olanzapine (Olanzapine 5 Mg Tablet) 5 mg PO Q6H PRN PRN Reason: agitation Ondansetron HCl (Ondansetron Hcl 4 Mg/2 Ml Vial) 4 mg IVPUSH Q8H PRN PRN Reason: Nausea and Vomiting Pharmacy Consult (Consult Rx Perform Med Rec) 1 each MISCELLANE ONCE PRN PRN Reason: Consult order Pharmacy Consult (Consult Rx Vancomycin Dosing) 1 each MISCELLANE DAILY PRN PRN Reason: Consult order Sodium Chloride (0.9 % Sodium Chloride Flush 3 Ml Syringe) 3 ml IVFLUSH QSHIFT [facility] Last Admin: 03/06/23 09:33 Dose: 3 ml Trazodone HCl (Trazodone Hcl 100 Mg Tablet) 100 mg PO BEDTIME [facility] Last Admin: 03/05/23 20:25 Dose: 100 mg Home Medications Medication Instructions Recorded Confirmed Last Taken Type insulin glargine 100 unit/mL 26 unit subcut DAILY 03/04/23 03/04/23 03/04/23 History subcutaneous solution (Lantus U-100 Insulin) levetiracetam 750 mg tablet 750 mg PO BID 03/04/23 03/05/23 03/04/23 History (Keppra) metformin 750 mg tablet,extended 750 mg PO BEDTIME 03/04/23 03/04/23 03/04/23 History release 24 hr trazodone 50 mg tablet 50 mg PO BEDTIME 03/05/23 03/05/23 Unknown History Exam Exam Date and Time: March 06, 2023 1054 Height,Weight and Vital Signs: Height 5 ft 4 in Weight 57.7 kg Last Vital Signs Temp 97.8 F 03/06/23 08:00 Pulse 93 03/06/23 08:00 Resp 17 03/06/23 08:00 BP 163/77 H 03/06/23 09:06 Pulse Ox 98 03/06/23 08:00 O2 Del Method Room Air 03/06/23 08:00 Pertinent Lab Results Pertinent Lab Results: Laboratory Tests 03/04/23 03/04/23 03/04/23 15:59 15:59 15:59 WBC 16.7 H RBC 2.88 L D Hgb 8.4 L D Hct 25.3 L D MCV 87.8 MCH 29.2 MCHC 33.2 RDW 12.9 Plt Count 459 H MPV 8.4 L Immature Gran % (Auto) 0.7 H Neut % (Auto) 86.7 H Lymph % (Auto) 6.8 L [place] % (Auto) 5.6 Eos % (Auto) 0.1 Baso % (Auto) 0.1 Lymph # (Auto) 1.1 L [place] # (Auto) 0.9 Eos # (Auto) 0.0 Baso # (Auto) 0.0 Abs Immat Gran (auto) 0.11 H Absolute Neuts (auto) 14.4 H Absolute Nucleated RBC 0.000 Nucleated RBC % (auto) 0.0 ESR 85 H PT 12.2 INR 1.0 APTT 25.8 L Sodium Potassium Chloride Carbon Dioxide Anion Gap BUN Creatinine Estim Creat Clear Calc Estimated GFR POC Glucose Random Glucose Lactic Acid Calcium Iron TIBC % Saturation Unsat Iron Binding Total Bilirubin Direct Bilirubin AST ALT Alkaline Phosphatase C-Reactive Protein Total Protein Albumin Vitamin B12 Folate Stool Occult Blood Random Vancomycin 03/04/23 03/04/23 03/04/23 15:59 15:59 18:36 WBC RBC Hgb Hct MCV MCH MCHC RDW Plt Count MPV Immature Gran % (Auto) Neut % (Auto) Lymph % (Auto) [place] % (Auto) Eos % (Auto) Baso % (Auto) Lymph # (Auto) [place] # (Auto) Eos # (Auto) Baso # (Auto) Abs Immat Gran (auto) Absolute Neuts (auto) Absolute Nucleated RBC Nucleated RBC % (auto) ESR PT INR APTT Sodium 131 L Potassium 4.3 Chloride 96 Carbon Dioxide 24 Anion Gap 15 BUN 21 H Creatinine 0.80 Estim Creat Clear Calc 66.1 Estimated GFR > 60 POC Glucose Random Glucose 271 H Lactic Acid 1.4 Calcium 10.1 Iron 27 L TIBC 233 % Saturation 12 L Unsat Iron Binding 206 Total Bilirubin 0.2 Direct Bilirubin < 0.2 AST 15 ALT 12 Alkaline Phosphatase 96 C-Reactive Protein 7.54 H Total Protein 6.1 L Albumin 3.3 L Vitamin B12 Folate Stool Occult Blood NEGATIVE Random Vancomycin 03/05/23 03/05/23 03/05/23 05:29 05:29 05:29 WBC RBC Hgb Hct MCV MCH MCHC RDW Plt Count MPV Immature Gran % (Auto) Neut % (Auto) Lymph % (Auto) [place] % (Auto) Eos % (Auto) Baso % (Auto) Lymph # (Auto) [place] # (Auto) Eos # (Auto) Baso # (Auto) Abs Immat Gran (auto) Absolute Neuts (auto) Absolute Nucleated RBC Nucleated RBC % (auto) ESR PT INR APTT Sodium 133 L Potassium 3.2 L D Chloride 102 Carbon Dioxide 24 Anion Gap 10 L BUN 10 Creatinine Cancelled 0.61 Estim Creat Clear Calc Cancelled 86.8 Estimated GFR Cancelled > 60 POC Glucose Random Glucose 182 H Lactic Acid Calcium 9.1 D Iron TIBC % Saturation Unsat Iron Binding Total Bilirubin Direct Bilirubin AST ALT Alkaline Phosphatase C-Reactive Protein Total Protein Albumin Vitamin B12 381 Folate 7.7 Stool Occult Blood Random Vancomycin 03/05/23 03/05/23 03/05/23 07:24 09:16 11:16 WBC 12.2 H RBC 3.62 L D Hgb 10.8 L D Hct 31.1 L D MCV 85.9 MCH 29.8 MCHC 34.7 RDW 13.0 Plt Count 580 H D MPV 8.6 L Immature Gran % (Auto) Neut % (Auto) Lymph % (Auto) [place] % (Auto) Eos % (Auto) Baso % (Auto) Lymph # (Auto) [place] # (Auto) Eos # (Auto) Baso # (Auto) Abs Immat Gran (auto) Absolute Neuts (auto) Absolute Nucleated RBC 0.000 Nucleated RBC % (auto) 0.0 ESR PT INR APTT Sodium Potassium Chloride Carbon Dioxide Anion Gap BUN Creatinine Estim Creat Clear Calc Estimated GFR POC Glucose 181 H 200 H Random Glucose Lactic Acid Calcium Iron TIBC % Saturation Unsat Iron Binding Total Bilirubin Direct Bilirubin AST ALT Alkaline Phosphatase C-Reactive Protein Total Protein Albumin Vitamin B12 Folate Stool Occult Blood Random Vancomycin 0803/05/23 03/05/23 13:40 16:33 20:00 WBC RBC Hgb Hct MCV MCH MCHC RDW Plt Count MPV Immature Gran % (Auto) Neut % (Auto) Lymph % (Auto) [place] % (Auto) Eos % (Auto) Baso % (Auto) Lymph # (Auto) [place] # (Auto) Eos # (Auto) Baso # (Auto) Abs Immat Gran (auto) Absolute Neuts (auto) Absolute Nucleated RBC Nucleated RBC % (auto) ESR PT INR APTT Sodium Potassium Chloride Carbon Dioxide Anion Gap BUN Creatinine Estim Creat Clear Calc Estimated GFR POC Glucose 262 H 200 H Random Glucose Lactic Acid Calcium Iron TIBC % Saturation Unsat Iron Binding Total Bilirubin Direct Bilirubin AST ALT Alkaline Phosphatase C-Reactive Protein Total Protein Albumin Vitamin B12 Folate Stool Occult Blood Random Vancomycin 5.6 L 03/06/23 03/06/23 05:27 07:15 WBC RBC Hgb Hct MCV MCH MCHC RDW Plt Count MPV Immature Gran % (Auto) Neut % (Auto) Lymph % (Auto) [place] % (Auto) Eos % (Auto) Baso % (Auto) Lymph # (Auto) [place] # (Auto) Eos # (Auto) Baso # (Auto) Abs Immat Gran (auto) Absolute Neuts (auto) Absolute Nucleated RBC Nucleated RBC % (auto) ESR PT INR APTT Sodium 134 L Potassium 3.8 Chloride 100 Carbon Dioxide 26 Anion Gap 12 BUN 7 L Creatinine 0.58 Estim Creat Clear Calc 91.3 Estimated GFR > 60 POC Glucose 169 H Random Glucose 164 H Lactic Acid Calcium 9.4 Iron TIBC % Saturation Unsat Iron Binding Total Bilirubin Direct Bilirubin AST ALT Alkaline Phosphatase C-Reactive Protein Total Protein Albumin Vitamin B12 Folate Stool Occult Blood Random Vancomycin Airway Mallampati Class: II (edentulous) TM Dist: >3cm Neck ROM: Full Loose/Missing/Broken Teeth: Yes, Upper and Lower Heart: RRR Lungs: CTA Assessment and Plan Assessment Anesthesia Assessment: Anesthesia Plan Discussed and Chart Reviewed Final Anesthetic Review History of Problems with Anesthesia: No NPO: Yes ASA Class: III Final Preanesthetic Review: Meds/Allgs Chart Reviewed, Consent Obtained/Reviewed and Anes Risks/Benef Reviewed Patient Risk: Intermediate Procedure Risk: Low Anesthetic Plan Anesthetic Plan: GA Disposition: Standard PACU
--- NOTE | 2023-03-06 11:47 | PC.NURSE ---
PATIENT AROSE FROM HER BED FROM A LAYING DOWN POSITION WHEN TOLD SHE HAD TO TAKE HER EARRING OUT. I HAVE RIGHTS REDIRECTED PATIENT AND SHE BECAME CALM AND EXPALINED THE REASONING OF WHY IT NEEDED TO COME OUT AND AND SIGNED A WAIVER FORM INSTEAD
--- NOTE | 2023-03-06 11:54 | PC.NURSE ---
PATIENT REFUSED TO TAKE OF HER OWN PANTS.
--- NOTE | 2023-03-06 13:33 | W.PM.OPN ---
Operative Note Operative Note Date of Service: 03/06/23 Narrative: Preoperative diagnosis: Osteomyelitis bilateral fourth toe Postoperative diagnosis:same Procedure:Amputation bilatera 4th toes Surgeon: Justin Villanueva MD Movie Projectionist: Ayaka Powell PA-C Anesthesia:General LMA Indications for procedure:Bilateral osteomyelitis at 4th toes Operative findings:Necrotic changes bilateral toes Specimen:Bilateral 4th toe amputation Estimated blood loss:20 mls Complications:none Procedure details:Patient was brought to the OR and placed in a supine position. After administering general anesthesia, the bilateral feet were prepped and draped in a sterile fashion. A surgical timeout was called and the consent confirmed. Local anesthesia was infiltrated as a digital block to both 4th toes. Starting on the left 4th toe, and elliptical incision was made around the base of the toe and extended up over the anterior surface of the distal metatarsal. Electrocautery was used to dissect down to the distal phalanx and up to the distal metatarsal. A bone cutter was then used to divide the toe at the distal metatarsal. The ronger was used to trim bone further proximally. Hemostasis was assured using the electrocautery. Wounds were irrigated with saline. Dermis was reapproximated with 3-0 Polysorb and skin closed with 3-0 nylon. Attention was then directed to the right foot. An elliptical incision was made around the base of the toe and extended up over the anterior surface of the distal metatarsal. Electrocautery was used to dissect down to the distal phalanx and up to the distal metatarsal. A bone cutter was then used to divide the toe at the distal metatarsal. The ronger was used to trim bone further proximally. Hemostasis was assured using the electrocautery. Wounds were irrigated with saline. Dermis was reapproximated with 3-0 Polysorb and skin closed with 3-0 nylon. Sterile dressing including fluffed gauze between the toes, Kerlex, and 4 inch vince bandage was then applied. The patient tolerated the procedure well and was transported to the PACU in stable condition.
[2023-03-06 15:07] LABS: Vancomycin Random 6.6 mcg/mL (15-20)
--- NOTE | 2023-03-06 15:18 | MHC.CM.PN ---
Patient S/P OR melany toe amp today. DP STR vs return to half-way. May need assist with transport.
--- NOTE | 2023-03-06 15:22 | HE.PHANOTE ---
Re: vanco dosing Renal function good with SCr 0.61 on 03/06. Pt continues to have low vanco trough even after dose increase. Will increase dose again to 1000 mg q8 and recheck 03/07 @0600 after 2 more doses given. May need to increase further if trough is still low.
[2023-03-06] MEDS: vancomycin HCL 1,000 MG in 0.9 % Sodium Chloride 250 ML 270 MG IV ×2 (15:56→23:32)
[2023-03-06 16:14] LABS: Glucose, Whole Blood 236 mg/dL (60-115)
[2023-03-06] MEDS: Insulin Lispro 100 UNIT/ML 3 ML VIAL SUBCUT ×2 (17:15→20:17)
[2023-03-06] MEDS: Morphine Sulfate 4 MG/ML CARTRIDGE 2 MG IVPUSH ×2 (19:22→23:23)
[2023-03-06] MEDS: Atorvastatin Calcium 80 MG TABLET PO (20:05)
[2023-03-06] MEDS: traZODone HCL 100 MG TABLET PO (20:05)
[2023-03-06] MEDS: hydrALAZINE HCl 20 MG/ML VIAL 10 MG IVPUSH (20:05)
[2023-03-06 20:14] LABS: Glucose, Whole Blood 313 mg/dL (60-115)
[2023-03-06] MEDS: LORazepam 0.5 MG TABLET PO (22:04)
--- NOTE | 2023-03-07 03:34 | PC.NURSE ---
Addendum entered by Tao Guy RN 03/07/23 05:11: aware that along with impulsive behavior, pt noted to have had occasional lip smacking and possibly some staring (difficult to determine.) Pt continues to sleep peacefully. Original Note: Pt non-compliant with high fall safety measures, refuses alarms, ambulated repeatedly on feet s/p amputation. On-call surgeon aware, will assess in morning. Dressings clean and intact, no evidence of bleeding. Pain increased with continued ambulation and managed with IV morphine. Pt remains occasionally resistant to vital sign assessment. At this time currently sleeping.
[2023-03-07 04:00] VITALS: BP 174/76; PULSE 99; RESP 18; TEMP 36.3; O2SAT 92
[2023-03-07] MEDS: Piperacillin Sodium/Tazobactam 3.375 GM in 0.9 % Sodium Chloride 50 ML IV ×4 (04:46→22:59)
[2023-03-07 07:24] VITALS: BP 174/76; PULSE 97; RESP 18; TEMP 36.3; O2SAT 95
[2023-03-07 07:37] LABS: Glucose, Whole Blood 201 mg/dL (60-115)
--- NOTE | 2023-03-07 07:59 | P.PNIM_ITS ---
Subjective Subjective Date of Service: 03/07/23 Physical Exam Vital Signs: Vital Signs: Last Vital Signs Temp 97.3 F 03/07/23 07:24 Pulse 97 03/07/23 07:24 Resp 18 03/07/23 07:24 BP 174/76 H 03/07/23 07:24 Pulse Ox 95 03/07/23 07:24 O2 Del Method Room Air 03/07/23 07:24 O2 Flow Rate 6 03/06/23 13:37 BMI result Body Mass Index 21.8 Objective Data Active Medications Acetaminophen (Acetaminophen 325 Mg Tablet) 650 mg PO Q6H PRN PRN Reason: Pain, Mild (Pain Scale 1-3) Last Admin: 03/05/23 15:55 Dose: 650 mg Documented By: JEANA Amlodipine Besylate (Amlodipine Besylate 10 Mg Tablet) 10 mg PO DAILY [facility]; Protocol Last Admin: 03/06/23 07:22 Dose: 10 mg Documented By: JEANA Aspirin (Aspirin Enteric Coated 81 Mg Tablet.Dr) 81 mg PO DAILY [facility] Last Admin: 03/06/23 09:27 Dose: Not Given Documented By: JEANA Non-Admin Reason: Surgery Atorvastatin Calcium (Atorvastatin Calcium 80 Mg Tablet) 80 mg PO BEDTIME [facility] Last Admin: 03/06/23 20:05 Dose: 80 mg Documented By: EZEQUIEL Clonidine HCl (Clonidine Hcl 0.1 Mg Tablet) 0.1 mg PO BID [facility]; Protocol Last Admin: 03/06/23 20:05 Dose: 0.1 mg Documented By: EZEQUIEL Dextrose (Dextrose 50 % 25 Gm/50 Ml Syringe) 25 gm IVPUSH Q15M PRN; Protocol PRN Reason: per Hypoglycemia Standing Ord. Docusate Sodium (Docusate Sodium 100 Mg Capsule) 100 mg PO DAILY PRN PRN Reason: Constipation Ferrous Sulfate (Ferrous Sulfate 300 Mg/5 Ml Liquid) 300 mg PO BIDWM [facility] Last Admin: 03/06/23 17:22 Dose: 300 mg Documented By: JEANA Glucose (Glucose Gel 15 Gm Gel..Gram.) 15 gm PO Q15M PRN; Protocol PRN Reason: per Hypoglycemia Standing Ord. Hydralazine HCl (Hydralazine Hcl 20 Mg/Ml Vial) 10 mg IVPUSH Q6H PRN PRN Reason: SBP > 190 Last Admin: 03/06/23 20:05 Dose: 10 mg Documented By: EZEQUIEL Piperacillin Sod/Tazobactam (Sod 3.375 gm/ Sodium Chloride) 50 mls @ 100 mls/hr IV Q6H [facility] Last Infusion: 03/07/23 05:16 Dose: 0 mls/hr Documented By: EZEQUIEL Vancomycin HCl 1,000 mg/ (Sodium Chloride) 270 mls @ 270 mls/hr IV Q8H [facility] Last Infusion: 03/07/23 00:43 Dose: 0 mls/hr Documented By: EZEQUIEL Insulin Glargine (Insulin Glargine,Hum.Rec.Anlog 100 Unit/Ml 10 Ml Vial) 10 unit SUBCUT DAILY [facility] Last Admin: 03/06/23 09:36 Dose: Not Given Documented By: JEANA Non-Admin Reason: NPO Insulin Human Lispro (Insulin Lispro 100 Unit/Ml 3 Ml Vial) 0.1 - 10 unit SUBCUT QIDACHS [facility]; Protocol Last Admin: 03/06/23 20:17 Dose: 8 unit Documented By: EZEQUIEL Levetiracetam (Levetiracetam 250 Mg Tablet) 750 mg PO BID [facility] Last Admin: 03/06/23 20:05 Dose: 750 mg Documented By: EZEQUIEL Lisinopril (Lisinopril 20 Mg Tablet) 20 mg PO DAILY [facility]; Protocol Lorazepam (Lorazepam 0.5 Mg Tablet) 0.5 mg PO Q6H PRN PRN Reason: Anxiety Last Admin: 03/06/23 22:04 Dose: 0.5 mg Documented By: EZEQUIEL Morphine Sulfate (Morphine Sulfate 4 Mg/Ml Cartridge) 2 mg IVPUSH Q4H PRN; Protocol PRN Reason: Pain, Severe (Pain Scale 7-10) Last Admin: 03/06/23 23:23 Dose: 2 mg Documented By: EZEQUIEL Olanzapine (Olanzapine 10 Mg Tablet) 10 mg PO BID [facility] Last Admin: 03/06/23 20:20 Dose: 10 mg Documented By: ZEEQUIEL Olanzapine (Olanzapine 5 Mg Tablet) 5 mg PO Q6H PRN PRN Reason: agitation Ondansetron HCl (Ondansetron Hcl 4 Mg/2 Ml Vial) 4 mg IVPUSH Q8H PRN PRN Reason: Nausea and Vomiting Pharmacy Consult (Consult Rx Perform Med Rec) 1 each MISCELLANE ONCE PRN PRN Reason: Consult order Pharmacy Consult (Consult Rx Vancomycin Dosing) 1 each MISCELLANE DAILY PRN PRN Reason: Consult order Sodium Chloride (0.9 % Sodium Chloride Flush 3 Ml Syringe) 3 ml IVFLUSH QSHIFT [facility] Last Admin: 03/06/23 23:28 Dose: Not Given Documented By: EZEQUIEL Non-Admin Reason: Previously Administered Trazodone HCl (Trazodone Hcl 100 Mg Tablet) 100 mg PO BEDTIME [facility] Last Admin: 03/06/23 20:05 Dose: 100 mg Documented By: EZEQUIEL Labs 03/05/23 09:16 03/06/23 05:27 Labs: Laboratory Results - last 24 hr 03/06/23 03/06/23 03/06/23 14:47 16:11 20:11 POC Glucose 236 H 313 H Random Vancomycin 6.6 L 03/07/23 07:31 POC Glucose 201 H Random Vancomycin Microbiology Microbiology Results: Microbiology 03/04/23 16:45 Blood Culture - Preliminary Blood - Venous No growth after 48 hours. 03/04/23 15:59 Blood Culture - Preliminary Blood - Venous No growth after 48 hours. Assessment and Plan (1) Osteomyelitis of fourth toe of left foot: Status: Acute (2) Osteomyelitis of fourth toe of right foot: Status: Acute Plan Pt is a 57-year-old female with a PMH significant for?HTN, insulin-dependent diabetes type 2, HTN, seizure disorder, and bipolar disorder who presents to the ED with?bilateral toe pain for the past few weeks.? Pt will be admitted to the hospital for treatment and further evaluation of osteomyelitis of 4th digits of right and left feet. Sepsis due to acute Osteomyelitis of the 4th toe of left foot with obvious necrosis, 4th toe of right with x-ray evidence or erosive changes suggestive of osteomyelitis elevated WBC, elevated ESR and CRP Zosyn+Vanco 03/04, s/p amputation of bilateral 4th toes on 03/06. Probably no longer need antibiotics given amputations and no bacteremia Bilateral toe fractures Xray shows fractures of bilateral 4th toes and 5th toe of right foot Unclear etiology: pt denies any trauma or injury to feet Analgesics for pain management, no intervention indicated Normocytic anemia Patient's H&H 8.4/25.3 with MCV 87.8 Iron and % saturation low Will check B12, folate oral iron supplementation Seizure disorder Patient unspecified seizure disorder Patient on Keppra but dosage not confirmed until tomorrow a.m. Patient given Keppra 500 mg Resume home Keppra dosage once verified by Pharmacy Hypokalemia--po kcl and K is now normal Mood disorder seen by Psych 03/05 with recommendation for ?Olanzapine 10mg po BID, can have aditional doses of olanzapine 5mg po Q6h prn agitation. Can also consider lower dose ativan 0.5mg po q6h for anxiety , no Psychotic symptoms today Insulin-dependent diabetes type 2 continue Lantus at reduced dose, SSI, hold metformin HTN--accelerated BP, add PRN IV hydralazine Increase Lisinopril to 30 daily, continue Norvasc 10 daily Full Code DVT Prophylaxis:? Pneumatic boots d/t possible surgical procedure tomorrow need for inpt: treatment of osteomylitis with IV Abx PT eval Time Spent With Patient Time: Total time managing care of this patient today ____ minutes. Quality Stroke Does the patient have a stroke diagnosis?: No VTE Prior VTE?: No VTE Risk Level:: Medical - moderate - high VTE Device Contraindication: N/A - Device Ordered VTE Drug Contraindication: Treatment Not Indicated
[2023-03-07] MEDS: amLODIPine Besylate 10 MG TABLET PO (08:05)
[2023-03-07] MEDS: cloNIDine HCL 0.1 MG TABLET PO ×2 (08:05→20:57)
[2023-03-07] MEDS: Aspirin Enteric Coated 81 MG TABLET.DR PO (08:06)
[2023-03-07] MEDS: levETIRAcetam 250 MG TABLET 750 MG PO ×2 (08:06→20:57)
[2023-03-07] MEDS: OLANZapine 10 MG TABLET PO ×2 (08:06→20:57)
[2023-03-07] MEDS: Insulin Lispro 100 UNIT/ML 3 ML VIAL SUBCUT ×4 (08:06→20:58)
[2023-03-07] MEDS: Ferrous Sulfate 300 MG/5 ML LIQUID PO ×2 (08:07→17:12)
[2023-03-07] MEDS: 0.9 % Sodium Chloride Flush 3 ML SYRINGE IVFLUSH ×3 (08:07→23:55)
[2023-03-07 09:02] LABS: Hematocrit 34.8 % (37.0-47.0); Mean Corpuscular HGB Conc 34.5 g/dl (31.0-35.0); Mean Corpuscular Hemoglobin 29.3 pg (27.0-33.0); Mean Corpuscular Volume 84.9 fL (80.0-98.0); Mean Platelet Volume 8.4 fL (9.4-12.3); Platelet Count 512 X10*3/uL (160-400); Red Cell Distribution Width 12.8 % (11.0-16.0); White Blood Count 14.9 X10*3/uL (4.8-10.8)
[2023-03-07 09:04] LABS: Vancomycin Random 10.2 mcg/mL (15-20)
[2023-03-07 09:10] LABS: Creatinine Clr Calc Pharmacy 82.7; Estimated Glomerular Filt Rate > 60
[2023-03-07 09:21] LABS: Anion Gap 14 (12-20); Blood Urea Nitrogen 7 mg/dL (9-16); Carbon Dioxide 23 mmol/L (22-29); Chloride 97 mmol/L (96-108); Creatinine Clr Calc Pharmacy 86.8; Estimated Glomerular Filt Rate > 60; Glucose Random 245 mg/dL (60-115); Potassium 3.3 mmol/L (3.3-5.1); Sodium 131 mmol/L (135-145)
[2023-03-07] MEDS: Insulin Glargine,Hum.rec.anlog 100 UNIT/ML 10 ML VIAL 10 UNIT SUBCUT (09:36)
--- NOTE | 2023-03-07 09:58 | PC.NURSE ---
several attempts to give pt her Zestril. Pt refused to fully arouse and sit up to take meds. Pt also refused P.T.
--- NOTE | 2023-03-07 11:09 | P.PNGS_ITS ---
Subjective Subjective Date of Service: 03/07/23 Interval history: did not want to be bothered as per nursing staff, uncooperative Physical Exam Vital Signs: Vital Signs: Last Vital Signs Temp 97.3 F 03/07/23 07:24 Pulse 97 03/07/23 07:24 Resp 18 03/07/23 07:24 BP 174/76 H 03/07/23 07:24 Pulse Ox 95 03/07/23 07:24 O2 Del Method Room Air 03/07/23 07:24 O2 Flow Rate 6 03/06/23 13:37 BMI result Body Mass Index 21.8 Const: General: comfortable and no acute distress Resp: Effort & Inspection: normal respiratory effort Cardio: Rate: regular rate Extrem: Other: dressings dry on both the Objective Data Active Medications Acetaminophen (Acetaminophen 325 Mg Tablet) 650 mg PO Q6H PRN PRN Reason: Pain, Mild (Pain Scale 1-3) Last Admin: 03/05/23 15:55 Dose: 650 mg Documented By: JEANA Amlodipine Besylate (Amlodipine Besylate 10 Mg Tablet) 10 mg PO DAILY [facility]; Protocol Last Admin: 03/07/23 08:05 Dose: 10 mg Documented By: ARSH Aspirin (Aspirin Enteric Coated 81 Mg Tablet.) 81 mg PO DAILY [facility] Last Admin: 03/07/23 08:06 Dose: 81 mg Documented By: ARSH Atorvastatin Calcium (Atorvastatin Calcium 80 Mg Tablet) 80 mg PO BEDTIME [facility] Last Admin: 03/06/23 20:05 Dose: 80 mg Documented By: EZEQUIEL Clonidine HCl (Clonidine Hcl 0.1 Mg Tablet) 0.1 mg PO BID [facility]; Protocol Last Admin: 03/07/23 08:05 Dose: 0.1 mg Documented By: ARSH Dextrose (Dextrose 50 % 25 Gm/50 Ml Syringe) 25 gm IVPUSH Q15M PRN; Protocol PRN Reason: per Hypoglycemia Standing Ord. Docusate Sodium (Docusate Sodium 100 Mg Capsule) 100 mg PO DAILY PRN PRN Reason: Constipation Ferrous Sulfate (Ferrous Sulfate 300 Mg/5 Ml Liquid) 300 mg PO BIDWM [facility] Last Admin: 03/07/23 08:07 Dose: 300 mg Documented By: ARSH Glucose (Glucose Gel 15 Gm Gel..Gram.) 15 gm PO Q15M PRN; Protocol PRN Reason: per Hypoglycemia Standing Ord. Hydralazine HCl (Hydralazine Hcl 20 Mg/Ml Vial) 10 mg IVPUSH Q6H PRN PRN Reason: SBP > 190 Last Admin: 03/06/23 20:05 Dose: 10 mg Documented By: EZEQUIEL Piperacillin Sod/Tazobactam (Sod 3.375 gm/ Sodium Chloride) 50 mls @ 100 mls/hr IV Q6H [facility] Last Admin: 03/07/23 10:55 Dose: 100 mls/hr Documented By: ARSH Insulin Glargine (Insulin Glargine,Hum.Rec.Anlog 100 Unit/Ml 10 Ml Vial) 10 unit SUBCUT DAILY [facility] Last Admin: 03/07/23 09:36 Dose: 10 unit Documented By: ARSH Insulin Human Lispro (Insulin Lispro 100 Unit/Ml 3 Ml Vial) 0.1 - 10 unit SUBCUT QIDACHS [facility]; Protocol Last Admin: 03/07/23 08:06 Dose: 4 unit Documented By: ARSH Levetiracetam (Levetiracetam 250 Mg Tablet) 750 mg PO BID [facility] Last Admin: 03/07/23 08:06 Dose: 750 mg Documented By: ARSH Lisinopril (Lisinopril 10 Mg Tablet) 30 mg PO DAILY [facility]; Protocol Last Admin: 03/07/23 09:57 Dose: Not Given Documented By: ARSH Non-Admin Reason: Patient Refused Lorazepam (Lorazepam 0.5 Mg Tablet) 0.5 mg PO Q6H PRN PRN Reason: Anxiety Last Admin: 03/06/23 22:04 Dose: 0.5 mg Documented By: EZEQUIEL Morphine Sulfate (Morphine Sulfate 4 Mg/Ml Cartridge) 2 mg IVPUSH Q4H PRN; Protocol PRN Reason: Pain, Severe (Pain Scale 7-10) Last Admin: 03/06/23 23:23 Dose: 2 mg Documented By: EZEQUIEL Olanzapine (Olanzapine 10 Mg Tablet) 10 mg PO BID [facility] Last Admin: 03/07/23 08:06 Dose: 10 mg Documented By: ARSH Olanzapine (Olanzapine 5 Mg Tablet) 5 mg PO Q6H PRN PRN Reason: agitation Ondansetron HCl (Ondansetron Hcl 4 Mg/2 Ml Vial) 4 mg IVPUSH Q8H PRN PRN Reason: Nausea and Vomiting Pharmacy Consult (Consult Rx Perform Med Rec) 1 each MISCELLANE ONCE PRN PRN Reason: Consult order Pharmacy Consult (Consult Rx Vancomycin Dosing) 1 each MISCELLANE DAILY PRN PRN Reason: Consult order Sodium Chloride (0.9 % Sodium Chloride Flush 3 Ml Syringe) 3 ml IVFLUSH QSHIFT [facility] Last Admin: 03/07/23 08:07 Dose: 3 ml Documented By: ARSH Trazodone HCl (Trazodone Hcl 100 Mg Tablet) 100 mg PO BEDTIME [facility] Last Admin: 03/06/23 20:05 Dose: 100 mg Documented By: EZEQUIEL Labs 03/07/23 08:43 03/07/23 08:43 Labs: Laboratory Results - last 24 hr 03/06/23 03/06/23 03/06/23 14:47 16:11 20:11 MCV MCH MCHC RDW Plt Count MPV Absolute Nucleated RBC Nucleated RBC % (auto) Anion Gap Estim Creat Clear Calc Estimated GFR POC Glucose 236 H 313 H Random Glucose Calcium Random Vancomycin 6.6 L Blood Type Antibody Screen 03/07/23 03/07/23 03/07/23 07:02 07:02 07:31 MCV MCH MCHC RDW Plt Count MPV Absolute Nucleated RBC Nucleated RBC % (auto) Anion Gap Estim Creat Clear Calc 82.7 Estimated GFR > 60 POC Glucose 201 H Random Glucose Calcium Random Vancomycin 10.2 L Blood Type Antibody Screen 03/07/23 03/07/23 03/07/23 08:43 08:43 08:43 MCV 84.9 MCH 29.3 MCHC 34.5 RDW 12.8 Plt Count 512 H MPV 8.4 L Absolute Nucleated RBC 0.000 Nucleated RBC % (auto) 0.0 Anion Gap 14 Estim Creat Clear Calc 86.8 Estimated GFR > 60 POC Glucose Random Glucose 245 H Calcium 10.0 D Random Vancomycin Blood Type O Positive Antibody Screen NEGATIVE Microbiology Microbiology Results: Microbiology 03/04/23 16:45 Blood Culture - Preliminary Blood - Venous No growth after 48 hours. 03/04/23 15:59 Blood Culture - Preliminary Blood - Venous No growth after 48 hours. Procedures Date of Service Date of Service: 03/07/23 Progress Note: A&P Assessment and plan (1) Osteomyelitis of fourth toe of left foot: Status: Acute Assessment and Plan: status post toe amp, 4th toe on both the left and the right dressings dry patient not answering questions at this time, says she wants to be left alone plan to do dressing change tomorrow (2) Osteomyelitis of fourth toe of right foot: Status: Acute Time Spent With Patient Time: Total time managing care of this patient today ____ minutes. Quality Stroke Does the patient have a stroke diagnosis?: No VTE Prior VTE?: No VTE Risk Level:: Medical - moderate - high VTE Device Contraindication: N/A - Device Ordered VTE Drug Contraindication: Treatment Not Indicated
[2023-03-07 11:12] LABS: Glucose, Whole Blood 235 mg/dL (60-115)
[2023-03-07] MEDS: lisinopriL 10 MG TABLET 30 MG PO (11:38)
[2023-03-07 15:14] VITALS: BP 191/90; PULSE 91; RESP 18; TEMP 36; O2SAT 96
[2023-03-07] MEDS: Morphine Sulfate 4 MG/ML CARTRIDGE 2 MG IVPUSH (15:35)
[2023-03-07 16:20] LABS: Glucose, Whole Blood 209 mg/dL (60-115)
--- NOTE | 2023-03-07 17:17 | HO.POSTANES ---
Post Anesthesia Evaluation Post Anesthesia Evaluation Date of Service: 03/07/23 Vital Signs: Vital Signs Temp Pulse Resp BP Pulse Ox O2 Del Method 03/07/23 15:14 96.8 F 91 18 191/90 H 96 Room Air 03/07/23 07:24 97.3 F 97 18 174/76 H 95 Room Air Anesthesia: General LMA Mental Status: Awake Pain Control: Satisfactory Nausea/Vomiting: None Hydration: Adequate Anesthesia-Related Issues: No Anes. Related Issues
[2023-03-07 19:30] VITALS: BP 196/84; PULSE 99; RESP 17; TEMP 36.1; O2SAT 97
[2023-03-07] MEDS: hydrALAZINE HCl 20 MG/ML VIAL 10 MG IVPUSH (19:55)
[2023-03-07 20:27] LABS: Glucose, Whole Blood 208 mg/dL (60-115)
[2023-03-07] MEDS: traZODone HCL 100 MG TABLET PO (20:57)
[2023-03-07] MEDS: Atorvastatin Calcium 80 MG TABLET PO (20:57)
[2023-03-07 21:03] VITALS: BP 175/70; PULSE 90; RESP 18
[2023-03-07] MEDS: LORazepam 0.5 MG TABLET PO (23:49)
[2023-03-07 23:56] VITALS: BP 115/55; PULSE 89
[2023-03-08] MEDS: Morphine Sulfate 4 MG/ML CARTRIDGE 2 MG IVPUSH (00:07)
[2023-03-08 03:46] VITALS: BP 124/61; PULSE 84; RESP 18; TEMP 36; O2SAT 94
[2023-03-08] MEDS: Piperacillin Sodium/Tazobactam 3.375 GM in 0.9 % Sodium Chloride 50 ML IV ×2 (04:38→11:37)
[2023-03-08 07:28] VITALS: BP 169/79; PULSE 84; RESP 18; TEMP 36; O2SAT 97
[2023-03-08 07:57] LABS: Glucose, Whole Blood 383 mg/dL (60-115)
[2023-03-08 08:04] LABS: Creatinine Clr Calc Pharmacy 74.5; Estimated Glomerular Filt Rate > 60
[2023-03-08] MEDS: levETIRAcetam 250 MG TABLET 750 MG PO ×2 (08:19→21:25)
[2023-03-08] MEDS: cloNIDine HCL 0.1 MG TABLET PO ×2 (08:20→21:24)
[2023-03-08] MEDS: amLODIPine Besylate 10 MG TABLET PO (08:20)
[2023-03-08] MEDS: Aspirin Enteric Coated 81 MG TABLET.DR PO (08:20)
[2023-03-08] MEDS: Insulin Lispro 100 UNIT/ML 3 ML VIAL SUBCUT ×4 (08:21→21:22)
[2023-03-08] MEDS: OLANZapine 10 MG TABLET PO ×2 (08:21→21:24)
[2023-03-08] MEDS: Insulin Glargine,Hum.rec.anlog 100 UNIT/ML 10 ML VIAL 10 UNIT SUBCUT ×2 (08:22→14:47)
[2023-03-08] MEDS: 0.9 % Sodium Chloride Flush 3 ML SYRINGE IVFLUSH (08:22)
--- NOTE | 2023-03-08 11:11 | PM.PNGS ---
Subjective Subjective Date of Service: 03/08/23 Interval history: says she has pain on both feet no events reported Physical Exam Vital Signs: Vital Signs: Last Vital Signs Temp 96.8 F 03/08/23 07:28 Pulse 84 03/08/23 07:28 Resp 18 03/08/23 07:28 BP 169/79 H 03/08/23 07:28 Pulse Ox 97 03/08/23 07:28 O2 Del Method Room Air 03/08/23 07:28 O2 Flow Rate 6 03/06/23 13:37 BMI result Body Mass Index 21.8 Const: General: comfortable and no acute distress Resp: Effort & Inspection: normal respiratory effort Extrem: Other: both amputation sites on the left and the right are he clean, sutures intact, no evidence of any infection Objective Data Active Medications Acetaminophen (Acetaminophen 325 Mg Tablet) 650 mg PO Q6H PRN PRN Reason: Pain, Mild (Pain Scale 1-3) Last Admin: 03/05/23 15:55 Dose: 650 mg Documented By: JEANA Amlodipine Besylate (Amlodipine Besylate 10 Mg Tablet) 10 mg PO DAILY [facility]; Protocol Last Admin: 03/08/23 08:20 Dose: 10 mg Documented By: ARSH Aspirin (Aspirin Enteric Coated 81 Mg Tablet.Dr) 81 mg PO DAILY [facility] Last Admin: 03/08/23 08:20 Dose: 81 mg Documented By: ARSH Atorvastatin Calcium (Atorvastatin Calcium 80 Mg Tablet) 80 mg PO BEDTIME [facility] Last Admin: 03/07/23 20:57 Dose: 80 mg Documented By: YELITZA Clonidine HCl (Clonidine Hcl 0.1 Mg Tablet) 0.1 mg PO BID [facility]; Protocol Last Admin: 03/08/23 08:20 Dose: 0.1 mg Documented By: ARSH Dextrose (Dextrose 50 % 25 Gm/50 Ml Syringe) 25 gm IVPUSH Q15M PRN; Protocol PRN Reason: per Hypoglycemia Standing Ord. Docusate Sodium (Docusate Sodium 100 Mg Capsule) 100 mg PO DAILY PRN PRN Reason: Constipation Ferrous Sulfate (Ferrous Sulfate 300 Mg/5 Ml Liquid) 300 mg PO BIDWM [facility] Last Admin: 03/07/23 17:12 Dose: 300 mg Documented By: YELITZA Glucose (Glucose Gel 15 Gm Gel..Gram.) 15 gm PO Q15M PRN; Protocol PRN Reason: per Hypoglycemia Standing Ord. Hydralazine HCl (Hydralazine Hcl 20 Mg/Ml Vial) 10 mg IVPUSH Q6H PRN PRN Reason: SBP > 190 Last Admin: 03/07/23 19:55 Dose: 10 mg Documented By: YELITZA Piperacillin Sod/Tazobactam (Sod 3.375 gm/ Sodium Chloride) 50 mls @ 100 mls/hr IV Q6H [facility] Last Infusion: 03/08/23 06:33 Dose: 0 mls/hr Documented By: KIM Insulin Glargine (Insulin Glargine,Hum.Rec.Anlog 100 Unit/Ml 10 Ml Vial) 10 unit SUBCUT DAILY [facility] Last Admin: 03/08/23 08:22 Dose: 10 unit Documented By: ARSH Insulin Human Lispro (Insulin Lispro 100 Unit/Ml 3 Ml Vial) 0.1 - 10 unit SUBCUT QIDACHS [facility]; Protocol Last Admin: 03/08/23 08:21 Dose: 10 unit Documented By: ARSH Levetiracetam (Levetiracetam 250 Mg Tablet) 750 mg PO BID [facility] Last Admin: 03/08/23 08:19 Dose: 750 mg Documented By: ARSH Lisinopril (Lisinopril 10 Mg Tablet) 30 mg PO DAILY [facility]; Protocol Last Admin: 03/08/23 08:20 Dose: 30 mg Documented By: ARSH Lorazepam (Lorazepam 0.5 Mg Tablet) 0.5 mg PO Q6H PRN PRN Reason: Anxiety Last Admin: 03/07/23 23:49 Dose: 0.5 mg Documented By: KIM Morphine Sulfate (Morphine Sulfate 4 Mg/Ml Cartridge) 2 mg IVPUSH Q4H PRN; Protocol PRN Reason: Pain, Severe (Pain Scale 7-10) Last Admin: 03/08/23 00:07 Dose: 2 mg Documented By: KIM Olanzapine (Olanzapine 10 Mg Tablet) 10 mg PO BID [facility] Last Admin: 03/08/23 08:21 Dose: 10 mg Documented By: ARSH Olanzapine (Olanzapine 5 Mg Tablet) 5 mg PO Q6H PRN PRN Reason: agitation Ondansetron HCl (Ondansetron Hcl 4 Mg/2 Ml Vial) 4 mg IVPUSH Q8H PRN PRN Reason: Nausea and Vomiting Pharmacy Consult (Consult Rx Perform Med Rec) 1 each MISCELLANE ONCE PRN PRN Reason: Consult order Pharmacy Consult (Consult Rx Vancomycin Dosing) 1 each MISCELLANE DAILY PRN PRN Reason: Consult order Sodium Chloride (0.9 % Sodium Chloride Flush 3 Ml Syringe) 3 ml IVFLUSH QSHIFT [facility] Last Admin: 03/08/23 08:22 Dose: 3 ml Documented By: ARSH Trazodone HCl (Trazodone Hcl 100 Mg Tablet) 100 mg PO BEDTIME [facility] Last Admin: 03/07/23 20:57 Dose: 100 mg Documented By: YELITZA Labs 03/07/23 08:43 03/08/23 07:22 Labs: Laboratory Results - last 24 hr 03/07/23 03/07/23 03/07/23 11:08 16:12 20:23 Estim Creat Clear Calc Estimated GFR POC Glucose 235 H 209 H 208 H 03/08/23 03/08/23 07:22 07:54 Estim Creat Clear Calc 74.5 Estimated GFR > 60 POC Glucose 383 H* Procedures Date of Service Date of Service: 03/08/23 Progress Note: A&P Assessment and plan (1) Osteomyelitis of fourth toe of left foot: Status: Acute Assessment and Plan: status post amputation, 4th toes of the left and the right both sites clean and dry sutures intact dressings changed rest of care as per hospitalist service (2) Osteomyelitis of fourth toe of right foot: Status: Acute Time Spent With Patient Time: Total time managing care of this patient today ____ minutes. Quality Stroke Does the patient have a stroke diagnosis?: No VTE Prior VTE?: No VTE Risk Level:: Medical - moderate - high VTE Device Contraindication: N/A - Device Ordered VTE Drug Contraindication: Treatment Not Indicated
[2023-03-08 11:34] LABS: Glucose, Whole Blood 228 mg/dL (60-115)
--- NOTE | 2023-03-08 13:59 | P.PNIM_ITS ---
Subjective Subjective Date of Service: 03/08/23 Interval History: Follow-up for patient with osteomyelitis of bilateral 4th toes, s/p amputation Patient seen and evaluated alongside general surgery Surgical sites clean, draining, no signs of infection Patient had no acute events overnight Patient still has pain in her feet, but doing better Has been out of bed to the commode Review of Systems Bilateral toe pain at surgical sites No leg pain Denies fever, chills, nausea, vomiting No shortness of breath Denies chest pain/pressure, palpitations Physical Exam Vital Signs: Vital Signs: Last Vital Signs Temp 96.8 F 03/08/23 07:28 Pulse 84 03/08/23 07:28 Resp 18 03/08/23 07:28 BP 169/79 H 03/08/23 07:28 Pulse Ox 97 03/08/23 07:28 O2 Del Method Room Air 03/08/23 07:28 O2 Flow Rate 6 03/06/23 13:37 BMI result Body Mass Index 21.8 General: AOx3, no acute distress Resp: CTA bilaterally CVS: S1, S2, RRR GI: +BS, NT, no distention Skin: No rash Neuro: Cranial nerves II-XII grossly intact bilaterally. Motor grossly intact bilaterally Extremities: No edema. Surgical sites not draining, non erythematous, no signs of infection Psych: Cooperative Objective Data Active Medications Acetaminophen (Acetaminophen 325 Mg Tablet) 650 mg PO Q6H PRN PRN Reason: Pain, Mild (Pain Scale 1-3) Last Admin: 03/05/23 15:55 Dose: 650 mg Documented By: JEANA Amlodipine Besylate (Amlodipine Besylate 10 Mg Tablet) 10 mg PO DAILY [facility]; Protocol Last Admin: 03/08/23 08:20 Dose: 10 mg Documented By: ARSH Aspirin (Aspirin Enteric Coated 81 Mg Tablet.) 81 mg PO DAILY [facility] Last Admin: 03/08/23 08:20 Dose: 81 mg Documented By: ARSH Atorvastatin Calcium (Atorvastatin Calcium 80 Mg Tablet) 80 mg PO BEDTIME [facility] Last Admin: 03/07/23 20:57 Dose: 80 mg Documented By: YELITZA Clonidine HCl (Clonidine Hcl 0.1 Mg Tablet) 0.1 mg PO BID [facility]; Protocol Last Admin: 03/08/23 08:20 Dose: 0.1 mg Documented By: ARSH Dextrose (Dextrose 50 % 25 Gm/50 Ml Syringe) 25 gm IVPUSH Q15M PRN; Protocol PRN Reason: per Hypoglycemia Standing Ord. Docusate Sodium (Docusate Sodium 100 Mg Capsule) 100 mg PO DAILY PRN PRN Reason: Constipation Doxycycline Monohydrate (Doxycycline Monohydrate 100 Mg Capsule) 100 mg PO Q12H [facility] Stop: 03/15/23 13:59 Ferrous Sulfate (Ferrous Sulfate 300 Mg/5 Ml Liquid) 300 mg PO BIDWM [facility] Last Admin: 03/08/23 11:25 Dose: Not Given Documented By: ARSH Non-Admin Reason: Patient Refused Glucose (Glucose Gel 15 Gm Gel..Gram.) 15 gm PO Q15M PRN; Protocol PRN Reason: per Hypoglycemia Standing Ord. Hydralazine HCl (Hydralazine Hcl 20 Mg/Ml Vial) 10 mg IVPUSH Q6H PRN PRN Reason: SBP > 190 Last Admin: 03/07/23 19:55 Dose: 10 mg Documented By: YELITZA Insulin Glargine (Insulin Glargine,Hum.Rec.Anlog 100 Unit/Ml 10 Ml Vial) 20 unit SUBCUT DAILY [facility] Insulin Glargine (Insulin Glargine,Hum.Rec.Anlog 100 Unit/Ml 10 Ml Vial) 10 unit SUBCUT ONCE ONE Stop: 03/08/23 13:57 Insulin Human Lispro (Insulin Lispro 100 Unit/Ml 3 Ml Vial) 0.1 - 10 unit SUBCUT QIDACHS [facility]; Protocol Last Admin: 03/08/23 11:36 Dose: 4 unit Documented By: ARSH Levetiracetam (Levetiracetam 250 Mg Tablet) 750 mg PO BID [facility] Last Admin: 03/08/23 08:19 Dose: 750 mg Documented By: ARSH Lisinopril (Lisinopril 10 Mg Tablet) 30 mg PO DAILY [facility]; Protocol Last Admin: 03/08/23 08:20 Dose: 30 mg Documented By: ARSH Lorazepam (Lorazepam 0.5 Mg Tablet) 0.5 mg PO Q6H PRN PRN Reason: Anxiety Last Admin: 03/07/23 23:49 Dose: 0.5 mg Documented By: KIM Morphine Sulfate (Morphine Sulfate 4 Mg/Ml Cartridge) 2 mg IVPUSH Q4H PRN; Protocol PRN Reason: Pain, Severe (Pain Scale 7-10) Last Admin: 03/08/23 00:07 Dose: 2 mg Documented By: KIM Olanzapine (Olanzapine 10 Mg Tablet) 10 mg PO BID [facility] Last Admin: 03/08/23 08:21 Dose: 10 mg Documented By: ARSH Olanzapine (Olanzapine 5 Mg Tablet) 5 mg PO Q6H PRN PRN Reason: agitation Ondansetron HCl (Ondansetron Hcl 4 Mg/2 Ml Vial) 4 mg IVPUSH Q8H PRN PRN Reason: Nausea and Vomiting Pharmacy Consult (Consult Rx Perform Med Rec) 1 each MISCELLANE ONCE PRN PRN Reason: Consult order Sodium Chloride (0.9 % Sodium Chloride Flush 3 Ml Syringe) 3 ml IVFLUSH QSHIFT [facility] Last Admin: 03/08/23 08:22 Dose: 3 ml Documented By: ARSH Trazodone HCl (Trazodone Hcl 100 Mg Tablet) 100 mg PO BEDTIME [facility] Last Admin: 03/07/23 20:57 Dose: 100 mg Documented By: YELITZA Labs 03/07/23 08:43 03/08/23 07:22 Labs: Laboratory Results - last 24 hr 03/07/23 03/07/23 03/08/23 16:12 20:23 07:22 Estim Creat Clear Calc 74.5 Estimated GFR > 60 POC Glucose 209 H 208 H 03/08/23 03/08/23 07:54 11:29 Estim Creat Clear Calc Estimated GFR POC Glucose 383 H* 228 H Assessment and Plan (1) Osteomyelitis of fourth toe of left foot: Status: Acute (2) Osteomyelitis of fourth toe of right foot: Status: Acute Plan Pt is a 57-year-old female with a PMH significant for?HTN, insulin-dependent diabetes type 2, HTN, seizure disorder, and bipolar disorder who presented to the ED with?bilateral toe pain for the past few weeks.? Pt was admitted to the hospital for treatment and further evaluation of osteomyelitis of 4th digits of right and left feet. Had bilateral 4th toe amputations on 03/06/2023. Sepsis due to acute Osteomyelitis of the 4th toe of left foot with obvious necrosis, 4th toe of right with x-ray evidence or erosive changes suggestive of osteomyelitis elevated WBC, elevated ESR and CRP Zosyn+Xiomarao 03/04,? s/p amputation of bilateral 4th toes on 03/06. Will discontinue IV antibiotics and switch to doxycycline 100 mg p.o. b.i.d. x7 days. Bilateral toe fractures Xray shows fractures of bilateral 4th toes and 5th toe of right foot Unclear etiology: pt denies any trauma or injury to feet Analgesics for pain management, no intervention indicated Normocytic anemia Patient's H&H 8.4/25.3 with MCV 87.8 Iron and % saturation low Will check B12, folate Oral iron supplementation Seizure disorder Patient unspecified seizure disorder Continue Keppra Hypokalemia--po kcl and K is now normal Mood disorder seen by Psych 03/05 with recommendation for Olanzapine 10mg po BID, can have additional doses of olanzapine 5mg po Q6h prn agitation. Can also consider lower dose ativan 0.5mg po q6h for anxiety , no Psychotic symptoms today Insulin-dependent diabetes type 2 Hold metformin SSI, Lantus HTN--accelerated BP, add PRN IV hydralazine Increase Lisinopril to 30 daily, continue Norvasc 10 daily Need for inpt: PT evaluation after bilateral 4th toe amputations, safe disposition home. Time Spent With Patient Time: Total time managing care of this patient today ____ minutes. Quality Stroke Does the patient have a stroke diagnosis?: No VTE Prior VTE?: No VTE Risk Level:: Medical - moderate - high VTE Device Contraindication: N/A - Device Ordered VTE Drug Contraindication: Treatment Not Indicated
[2023-03-08] MEDS: Doxycycline Monohydrate 100 MG CAPSULE PO ×2 (14:46→21:23)
[2023-03-08] MEDS: Ferrous Sulfate 324 MG TABLET.DR PO (14:47)
--- NOTE | 2023-03-08 15:12 | PC.NURSE ---
Ok to leave IV out per DR Tate. Pt now on po antibiotics
[2023-03-08] MEDS: Acetaminophen 325 MG TABLET 650 MG PO (15:42)
[2023-03-08 16:00] VITALS: BP 146/69; PULSE 88; RESP 18; TEMP 36.6; O2SAT 93
[2023-03-08 16:12] LABS: Glucose, Whole Blood 322 mg/dL (60-115)
[2023-03-08] MEDS: oxyCODONE HCl Immed Release 5 MG TABLET PO ×2 (17:15→21:34)
[2023-03-08 20:00] VITALS: BP 170/80; PULSE 83; RESP 18; TEMP 36.2; O2SAT 95
[2023-03-08 21:14] LABS: Glucose, Whole Blood 351 mg/dL (60-115)
--- NOTE | 2023-03-08 21:17 | PC.NURSE ---
BS 351 ,Dr. Davis notified
[2023-03-08] MEDS: traZODone HCL 100 MG TABLET PO (21:24)
[2023-03-08] MEDS: Atorvastatin Calcium 80 MG TABLET PO (21:24)
[2023-03-08] MEDS: LORazepam 0.5 MG TABLET PO (21:34)
[2023-03-09] MEDS: oxyCODONE HCl Immed Release 5 MG TABLET PO ×3 (01:54→19:39)
[2023-03-09 04:00] VITALS: BP 161/78; PULSE 77; RESP 18; TEMP 36.3; O2SAT 96
[2023-03-09 07:00] LABS: Creatinine Clr Calc Pharmacy 94.5; Estimated Glomerular Filt Rate > 60
[2023-03-09 07:33] VITALS: BP 182/82; PULSE 82; RESP 18; TEMP 36.2; O2SAT 96
[2023-03-09 07:34] LABS: Glucose, Whole Blood 246 mg/dL (60-115)
[2023-03-09] MEDS: Ferrous Sulfate 324 MG TABLET.DR PO (07:59)
[2023-03-09] MEDS: Aspirin Enteric Coated 81 MG TABLET.DR PO (07:59)
[2023-03-09] MEDS: Doxycycline Monohydrate 100 MG CAPSULE PO ×2 (07:59→19:39)
[2023-03-09] MEDS: cloNIDine HCL 0.1 MG TABLET PO ×2 (07:59→19:39)
[2023-03-09] MEDS: levETIRAcetam 250 MG TABLET 750 MG PO ×2 (07:59→19:40)
[2023-03-09] MEDS: lisinopriL 10 MG TABLET 30 MG PO ×2 (08:00→08:01)
[2023-03-09] MEDS: OLANZapine 10 MG TABLET PO ×2 (08:00→19:39)
[2023-03-09] MEDS: Insulin Lispro 100 UNIT/ML 3 ML VIAL SUBCUT ×4 (08:02→20:37)
[2023-03-09] MEDS: Insulin Glargine,Hum.rec.anlog 100 UNIT/ML 10 ML VIAL 20 UNIT SUBCUT (08:02)
[2023-03-09] MEDS: amLODIPine Besylate 10 MG TABLET PO (08:03)
[2023-03-09 11:34] LABS: Glucose, Whole Blood 292 mg/dL (60-115)
--- NOTE | 2023-03-09 11:46 | P.PNIM_ITS ---
Subjective Subjective Date of Service: 03/09/23 Interval History: Follow-up for patient with osteomyelitis of bilateral 4th toes, s/p amputation feelling better ambulating in room on [facility] Physical Exam Vital Signs: Vital Signs: Last Vital Signs Temp 97.1 F 03/09/23 07:33 Pulse 82 03/09/23 07:33 Resp 18 03/09/23 07:33 BP 182/82 H 03/09/23 07:33 Pulse Ox 96 03/09/23 07:33 O2 Del Method Room Air 03/09/23 07:33 O2 Flow Rate 6 03/06/23 13:37 BMI result Body Mass Index 21.8 Appearing in no acute distress lung sounds are clear to auscultation heart regular rate rhythm, clear S1, S2 positive bowel sounds, abdomen is soft, nontender neuro patient is alert x3, no focal deficits Bilateral feet dressing intact Objective Data Active Medications Acetaminophen (Acetaminophen 325 Mg Tablet) 650 mg PO Q6H PRN PRN Reason: Pain, Mild (Pain Scale 1-3) Last Admin: 03/08/23 15:42 Dose: 650 mg Documented By: ETHAN Amlodipine Besylate (Amlodipine Besylate 10 Mg Tablet) 10 mg PO DAILY ON [facility]; Protocol Last Admin: 03/09/23 08:03 Dose: 10 mg Documented By: ARSH Aspirin (Aspirin Enteric Coated 81 Mg Tablet.) 81 mg PO DAILY ON [facility] Last Admin: 03/09/23 07:59 Dose: 81 mg Documented By: ARSH Atorvastatin Calcium (Atorvastatin Calcium 80 Mg Tablet) 80 mg PO BEDTIME ON [facility] Last Admin: 03/08/23 21:24 Dose: 80 mg Documented By: ETHAN Clonidine HCl (Clonidine Hcl 0.1 Mg Tablet) 0.1 mg PO BID ON [facility]; Protocol Last Admin: 03/09/23 07:59 Dose: 0.1 mg Documented By: ARSH Dextrose (Dextrose 50 % 25 Gm/50 Ml Syringe) 25 gm IVPUSH Q15M PRN; Protocol PRN Reason: per Hypoglycemia Standing Ord. Docusate Sodium (Docusate Sodium 100 Mg Capsule) 100 mg PO DAILY PRN PRN Reason: Constipation Doxycycline Monohydrate (Doxycycline Monohydrate 100 Mg Capsule) 100 mg PO BID ON [facility] Last Admin: 03/09/23 07:59 Dose: 100 mg Documented By: ARSH Ferrous Sulfate (Ferrous Sulfate 324 Mg Tablet.) 324 mg PO DAILY ON [facility] Last Admin: 03/09/23 07:59 Dose: 324 mg Documented By: ARSH Glucose (Glucose Gel 15 Gm Gel..Gram.) 15 gm PO Q15M PRN; Protocol PRN Reason: per Hypoglycemia Standing Ord. Hydralazine HCl (Hydralazine Hcl 20 Mg/Ml Vial) 10 mg IVPUSH Q6H PRN PRN Reason: SBP > 190 Last Admin: 03/07/23 19:55 Dose: 10 mg Documented By: YELTIZA Insulin Glargine (Insulin Glargine,Hum.Rec.Anlog 100 Unit/Ml 10 Ml Vial) 20 unit SUBCUT DAILY [facility] Last Admin: 03/09/23 08:02 Dose: 20 unit Documented By: ARSH Insulin Human Lispro (Insulin Lispro 100 Unit/Ml 3 Ml Vial) 0.1 - 10 unit SUBCUT QIDACHS ON [facility]; Protocol Last Admin: 03/09/23 08:02 Dose: 4 unit Documented By: ARSH Levetiracetam (Levetiracetam 250 Mg Tablet) 750 mg PO BID ON [facility] Last Admin: 03/09/23 07:59 Dose: 750 mg Documented By: ARSH Lisinopril (Lisinopril 10 Mg Tablet) 30 mg PO DAILY [facility]; Protocol Last Admin: 03/09/23 08:00 Dose: 30 mg Documented By: ARSH Lorazepam (Lorazepam 0.5 Mg Tablet) 0.5 mg PO Q6H PRN PRN Reason: Anxiety Last Admin: 03/08/23 21:34 Dose: 0.5 mg Documented By: ETHAN Olanzapine (Olanzapine 10 Mg Tablet) 10 mg PO BID ON [facility] Last Admin: 03/09/23 08:00 Dose: 10 mg Documented By: ARSH Olanzapine (Olanzapine 5 Mg Tablet) 5 mg PO Q6H PRN PRN Reason: agitation Ondansetron HCl (Ondansetron Hcl 4 Mg/2 Ml Vial) 4 mg IVPUSH Q8H PRN PRN Reason: Nausea and Vomiting Oxycodone HCl (Oxycodone Hcl Immed Release 5 Mg Tablet) 5 mg PO Q4H PRN PRN Reason: Pain, Severe (Pain Scale 7-10) Last Admin: 03/09/23 01:54 Dose: 5 mg Documented By: SAKINA Pharmacy Consult (Consult Rx Perform Med Rec) 1 each MISCELLANE ONCE PRN PRN Reason: Consult order Sodium Chloride (0.9 % Sodium Chloride Flush 3 Ml Syringe) 3 ml IVFLUSH QSHIFT ON [facility] Last Admin: 03/09/23 08:02 Dose: Not Given Documented By: ARSH Non-Admin Reason: No Access Trazodone HCl (Trazodone Hcl 100 Mg Tablet) 100 mg PO BEDTIME ON [facility] Last Admin: 03/08/23 21:24 Dose: 100 mg Documented By: ETHAN Labs 03/07/23 08:43 03/09/23 05:49 Labs: Laboratory Results - last 24 hr 03/08/23 03/08/23 03/09/23 16:03 21:05 05:49 Estim Creat Clear Calc 94.5 Estimated GFR > 60 POC Glucose 322 H 351 H* 03/09/23 03/09/23 07:30 11:29 Estim Creat Clear Calc Estimated GFR POC Glucose 246 H 292 H Assessment and Plan (1) Osteomyelitis of fourth toe of left foot: Status: Acute (2) Osteomyelitis of fourth toe of right foot: Status: Acute Plan 57-year-old female with a PMH significant for?HTN, insulin-dependent diabetes type 2, HTN, seizure disorder, and bipolar disorder who presented to the ED with?bilateral toe pain for the past few weeks.? Pt was admitted to the hospital for treatment and further evaluation of osteomyelitis of 4th digits of right and left feet. Had bilateral 4th toe amputations on 03/06/2023. Sepsis due to acute Osteomyelitis 4th toe of left foot with necrosis, 4th toe of right with x-ray evidence or erosive changes suggestive of osteomyelitis elevated WBC, elevated ESR and CRP s/p amputation of bilateral 4th toes on 03/06. Will discontinue IV antibiotics and switch to doxycycline 100 mg p.o. b.i.d. x7 days. Normocytic anemia Patient's H&H 8.4/25.3 with MCV 87.8 Iron and % saturation low Will check B12, folate Oral iron supplementation Seizure disorder unspecified seizure disorder Continue Keppra Hypokalemia repleted and resolved Mood disorder seen by Psych 03/05 >Olanzapine 10mg po BID, can have additional doses of olanzapine 5mg po Q6h prn agitation. Can also consider lower dose ativan 0.5mg po q6h for anxiety Insulin-dependent diabetes type 2 Hold metformin SSI, Lantus HTN accelerated BP, PRN IV hydralazine Lisinopril to 30 daily, continue Norvasc 10 daily DVT prophylaxis with heparin Attending Dr. Collins Full code Need for inpt: PT evaluation after bilateral 4th toe amputations, safe disposi tion home. Time Spent With Patient Time: Total time managing care of this patient today ____ minutes. Quality Stroke Does the patient have a stroke diagnosis?: No VTE Prior VTE?: No VTE Risk Level:: Medical - moderate - high VTE Device Contraindication: N/A - Device Ordered VTE Drug Contraindication: Treatment Not Indicated
--- NOTE | 2023-03-09 11:46 | PM.PNGS ---
Subjective Subjective Date of Service: 03/09/23 Interval history: Some pain at right toe amp site. Was able to ambulate with walker yesterday. Physical Exam Vital Signs: Vital Signs: Last Vital Signs Temp 97.1 F 03/09/23 07:33 Pulse 82 03/09/23 07:33 Resp 18 03/09/23 07:33 BP 182/82 H 03/09/23 07:33 Pulse Ox 96 03/09/23 07:33 O2 Del Method Room Air 03/09/23 07:33 O2 Flow Rate 6 03/06/23 13:37 BMI result Body Mass Index 21.8 Const: General: no acute distress and alert Nutritional Appearance: cachectic Resp: Effort & Inspection: normal respiratory effort Skin: General skin exam: no rashes or lesions noted Extrem: Other: right and left 4th toe amp site clean; sutures in place, very scant drainage, no surrounding erythema Objective Data Active Medications Acetaminophen (Acetaminophen 325 Mg Tablet) 650 mg PO Q6H PRN PRN Reason: Pain, Mild (Pain Scale 1-3) Last Admin: 03/08/23 15:42 Dose: 650 mg Documented By: ETHAN Amlodipine Besylate (Amlodipine Besylate 10 Mg Tablet) 10 mg PO DAILY [facility]; Protocol Last Admin: 03/09/23 08:03 Dose: 10 mg Documented By: ARSH Aspirin (Aspirin Enteric Coated 81 Mg Tablet.) 81 mg PO DAILY [facility] Last Admin: 03/09/23 07:59 Dose: 81 mg Documented By: ARSH Atorvastatin Calcium (Atorvastatin Calcium 80 Mg Tablet) 80 mg PO BEDTIME [facility] Last Admin: 03/08/23 21:24 Dose: 80 mg Documented By: ETHAN Clonidine HCl (Clonidine Hcl 0.1 Mg Tablet) 0.1 mg PO BID [facility]; Protocol Last Admin: 03/09/23 07:59 Dose: 0.1 mg Documented By: ARSH Dextrose (Dextrose 50 % 25 Gm/50 Ml Syringe) 25 gm IVPUSH Q15M PRN; Protocol PRN Reason: per Hypoglycemia Standing Ord. Docusate Sodium (Docusate Sodium 100 Mg Capsule) 100 mg PO DAILY PRN PRN Reason: Constipation Doxycycline Monohydrate (Doxycycline Monohydrate 100 Mg Capsule) 100 mg PO BID [facility] Last Admin: 03/09/23 07:59 Dose: 100 mg Documented By: ARSH Ferrous Sulfate (Ferrous Sulfate 324 Mg Tablet.Dr) 324 mg PO DAILY [facility] Last Admin: 03/09/23 07:59 Dose: 324 mg Documented By: ARSH Glucose (Glucose Gel 15 Gm Gel..Gram.) 15 gm PO Q15M PRN; Protocol PRN Reason: per Hypoglycemia Standing Ord. Hydralazine HCl (Hydralazine Hcl 20 Mg/Ml Vial) 10 mg IVPUSH Q6H PRN PRN Reason: SBP > 190 Last Admin: 03/07/23 19:55 Dose: 10 mg Documented By: YELITZA Insulin Glargine (Insulin Glargine,Hum.Rec.Anlog 100 Unit/Ml 10 Ml Vial) 20 unit SUBCUT DAILY [facility] Last Admin: 03/09/23 08:02 Dose: 20 unit Documented By: ARSH Insulin Human Lispro (Insulin Lispro 100 Unit/Ml 3 Ml Vial) 0.1 - 10 unit SUBCUT QIDACHS [facility]; Protocol Last Admin: 03/09/23 08:02 Dose: 4 unit Documented By: ARSH Levetiracetam (Levetiracetam 250 Mg Tablet) 750 mg PO BID [facility] Last Admin: 03/09/23 07:59 Dose: 750 mg Documented By: ARSH Lisinopril (Lisinopril 10 Mg Tablet) 30 mg PO DAILY [facility]; Protocol Last Admin: 03/09/23 08:00 Dose: 30 mg Documented By: ARSH Lorazepam (Lorazepam 0.5 Mg Tablet) 0.5 mg PO Q6H PRN PRN Reason: Anxiety Last Admin: 03/08/23 21:34 Dose: 0.5 mg Documented By: ETHAN Olanzapine (Olanzapine 10 Mg Tablet) 10 mg PO BID [facility] Last Admin: 03/09/23 08:00 Dose: 10 mg Documented By: ARSH Olanzapine (Olanzapine 5 Mg Tablet) 5 mg PO Q6H PRN PRN Reason: agitation Ondansetron HCl (Ondansetron Hcl 4 Mg/2 Ml Vial) 4 mg IVPUSH Q8H PRN PRN Reason: Nausea and Vomiting Oxycodone HCl (Oxycodone Hcl Immed Release 5 Mg Tablet) 5 mg PO Q4H PRN PRN Reason: Pain, Severe (Pain Scale 7-10) Last Admin: 03/09/23 01:54 Dose: 5 mg Documented By: SAKINA Pharmacy Consult (Consult Rx Perform Med Rec) 1 each MISCELLANE ONCE PRN PRN Reason: Consult order Sodium Chloride (0.9 % Sodium Chloride Flush 3 Ml Syringe) 3 ml IVFLUSH QSHIFT [facility] Last Admin: 03/09/23 08:02 Dose: Not Given Documented By: ARSH Non-Admin Reason: No Access Trazodone HCl (Trazodone Hcl 100 Mg Tablet) 100 mg PO BEDTIME [facility] Last Admin: 03/08/23 21:24 Dose: 100 mg Documented By: RUBENIT Labs 03/07/23 08:43 03/09/23 05:49 Labs: Laboratory Results - last 24 hr 03/08/23 03/08/23 03/09/23 16:03 21:05 05:49 Estim Creat Clear Calc 94.5 Estimated GFR > 60 POC Glucose 322 H 351 H* 03/09/23 03/09/23 07:30 11:29 Estim Creat Clear Calc Estimated GFR POC Glucose 246 H 292 H Procedures Date of Service Date of Service: 03/09/23 Progress Note: A&P Assessment and plan (1) Osteomyelitis of fourth toe of left foot: Status: Acute (2) Osteomyelitis of fourth toe of right foot: Status: Acute Plan 57 year old female admitted with osteomyelitis of b/l 4th toe now POD #3 s/p amputation of bilateral 4th toe. Doing well post op, amp sites are clean appearing and sutures intact. Cont daily dressing changes with dry fluffs, kerlix. Can ambulate on hindfoot. Stable for dc when medically stable. F/u in office in [address] Villanueva. Time Spent With Patient Time: Total time managing care of this patient today ____ minutes. Quality Stroke Does the patient have a stroke diagnosis?: No VTE Prior VTE?: No VTE Risk Level:: Medical - moderate - high VTE Device Contraindication: N/A - Device Ordered VTE Drug Contraindication: Treatment Not Indicated
[2023-03-09] MEDS: hydrALAZINE HCl 25 MG TABLET PO ×3 (13:38→19:40)
[2023-03-09] MEDS: Heparin Sodium,Porcine 5,000 UNIT/ML VIAL 5000 UNIT SUBCUT ×2 (13:41→23:28)
--- NOTE | 2023-03-09 14:37 | MHC.CM.PN ---
Per MD rounds patient may discharge tomorrow. Homecare preferences obtained referrals sent. DP vna patient will need assist with transport.
[2023-03-09] MEDS: 0.9 % Sodium Chloride Flush 3 ML SYRINGE IVFLUSH (15:10)
[2023-03-09 15:57] VITALS: BP 182/82; PULSE 82; O2SAT 96
[2023-03-09 16:00] VITALS: BP 175/79; PULSE 89; RESP 15; TEMP 36.7; O2SAT 97
[2023-03-09 16:49] LABS: Glucose, Whole Blood 196 mg/dL (60-115)
[2023-03-09 19:37] VITALS: BP 182/81; PULSE 94; RESP 18; TEMP 37.2; O2SAT 96
[2023-03-09] MEDS: Atorvastatin Calcium 80 MG TABLET PO (19:39)
[2023-03-09] MEDS: traZODone HCL 100 MG TABLET PO (19:40)
[2023-03-09 20:23] LABS: Glucose, Whole Blood 317 mg/dL (60-115)
[2023-03-09] MEDS: LORazepam 0.5 MG TABLET PO (21:28)
[2023-03-10 03:51] VITALS: BP 178/80; PULSE 90; RESP 20; TEMP 37; O2SAT 94
[2023-03-10 06:19] LABS: Estimated Glomerular Filt Rate > 60
[2023-03-10 07:12] LABS: Glucose, Whole Blood 297 mg/dL (60-115)
[2023-03-10 07:48] VITALS: BP 147/67; PULSE 73; RESP 18; TEMP 36; O2SAT 93
[2023-03-10] MEDS: Insulin Glargine,Hum.rec.anlog 100 UNIT/ML 10 ML VIAL 20 UNIT SUBCUT (08:13)
[2023-03-10] MEDS: Aspirin Enteric Coated 81 MG TABLET.DR PO (08:14)
[2023-03-10] MEDS: oxyCODONE HCl Immed Release 5 MG TABLET PO ×2 (08:14→12:48)
[2023-03-10] MEDS: amLODIPine Besylate 10 MG TABLET PO (08:14)
[2023-03-10] MEDS: Insulin Lispro 100 UNIT/ML 3 ML VIAL SUBCUT ×3 (08:14→16:57)
[2023-03-10] MEDS: Ferrous Sulfate 324 MG TABLET.DR PO (08:14)
[2023-03-10] MEDS: levETIRAcetam 250 MG TABLET 750 MG PO (08:14)
[2023-03-10] MEDS: cloNIDine HCL 0.1 MG TABLET PO (08:14)
[2023-03-10] MEDS: Doxycycline Monohydrate 100 MG CAPSULE PO (08:15)
[2023-03-10] MEDS: Acetaminophen 325 MG TABLET 650 MG PO (08:15)
[2023-03-10] MEDS: OLANZapine 10 MG TABLET PO (08:15)
[2023-03-10] MEDS: lisinopriL 10 MG TABLET 30 MG PO (08:15)
[2023-03-10] MEDS: hydrALAZINE HCl 25 MG TABLET PO ×3 (08:15→16:54)
[2023-03-10] MEDS: LORazepam 0.5 MG TABLET PO (08:28)
[2023-03-10 11:26] LABS: Glucose, Whole Blood 270 mg/dL (60-115)
--- NOTE | 2023-03-10 12:32 | P.DS_ITS ---
DS: Providers Provider Date of Service: 03/10/23 Date of admission: 03/04/23 21:11 Primary care physician: Yun Day MD Consults: 03/04/23 21:16 Consult to General Surgery Routine Consulting Provider: [facility] General Surgeons Reason for consultation: Osteomyelitis of 4th digits of left and right feet 03/05/23 09:48 Consult to Psychiatry Routine Consulting Provider: Psych Covering Reason for consultation: Psychosis Has provider been notified: No DS: Diagnosis Discharge Diagnosis (1) Osteomyelitis of fourth toe of left foot: Status: Acute (2) Osteomyelitis of fourth toe of right foot: Status: Acute DS: Summary Hospital Course Hospital Course: History and physical as per admitting provider. Pt is a 57-year-old female with a PMH significant for?HTN, insulin-dependent diabetes type 2, HTN, seizure disorder, and bipolar disorder who presents to the ED with?bilateral toe pain for the past few weeks.? Patient states she has noticed that two weeks ago the 4th digit on her left foot began turning black. Reports she knows this toe it is broken but is unable to clarify how she knows this or when the fracture may have occurred.? Patient adamantly denies fracture in the toes of her right foot.? Denies any trauma to her feet. She denies any pain or discharge from right toe but reports right 4th toe has been bleeding and has pain when she walks. Ambulates with a cane at baseline. Says both feet have been malodorous. Denies any hx of alcohol or illicit substance use but smokes 2-3 packs of cigarettes a day. States she has been compliant with all of her medications.? Pt is currently homeless and living in a detention. Occasionally beligerant and combative, but redirectable. In the ED patient was tachycardic up to 107, tachypneic up 22, and hypertensive to 210/90. Labs were significant for leukocytosis of 16.7, H&H of 8.4/25.3, ESR 85, CRP 7.54, sodium 131, iron 27 with% saturation of 12.? Renal function baseline.? Hepatic function WNL.? X-ray of left foot showed acute, mildly displaced fracture of the proximal phalanx of the 4th digit that could be traumatic or pathologic, with mild soft tissue irregularities distally in the 4th digit with no definitive erosive changes visualized.? X-ray right foot found moderate soft tissue swelling of the 4th digit with commuted fracture and deformity of the proximal phalanx concerning for pathologic fracture with erosive changes distally concerning for osteomyelitis.? Also acute appearing minimally displaced fracture at the base of the 5th metatarsal. Pt was treated with IVF, Zosyn, and vanco. Pt will be admitted to the hospital for treatment and further evaluation of osteomyelitis of 4th digits of right and left feet. 57-year-old woman treated for acute osteomyelitis 2 bilateral 4th toes with necrosis. She had elevated ESR and CRP. She was started on IV antibiotics and subsequently switched to oral doxycycline. 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 Since then she has been doing well, daily dressings with dry dressings and Kerlix daily as per visiting nurse services. During hospitalization she was noted to have normocytic anemia and started on iron supplementation. She also had some episodes of elevated blood pressure and she was started on hydralazine. That did seem to help so she can continue hydralazine at home as well as her lisinopril and Norvasc. She was also seen evaluated by the psychiatric team and started on Zyprexa 10 mg b.i.d. which she can continue outpatient. Patient is currently living in a hotel detention and was given wound care supplies by RN who also taught her how to do the dressings. Of note. Apparently the patient's insurance coverage has lapsed, case management has Center referral for financial services and they will contact her outpatient. Seizure disorder. No seizure during hospitalization. Continue Keppra Hypokalemia. Self limiting, repleted and resolved Diabetes mellitus type 2. Continue home medications Time Spent with Patient Time attestation: Total time managing care of this patient today ____ minutes. Discharge coordination time: Greater than 30 minutes Quality: Safe Use of Opioids Does Pt have an Active Cancer Diagnosis on the Problem List?: No Quality: Stroke Does the patient have a stroke diagnosis?: No Physical Exam Vital Signs: Vital Signs: Last Vital Signs Temp 96.8 F 03/10/23 07:48 Pulse 73 03/10/23 07:48 Resp 18 03/10/23 07:48 BP 147/67 H 03/10/23 07:48 Pulse Ox 93 03/10/23 07:48 O2 Del Method Room Air 03/10/23 07:48 O2 Flow Rate 6 03/06/23 13:37 BMI result Body Mass Index 21.8 Appearing in no acute distress head is normocephalic atraumatic eyes pupils are PERRLA sclera is anicteric mouth throat mucous membranes are intact and moist neck is supple no lymphadenopathy, no JVD noted lung sounds are clear to auscultation heart regular rate rhythm, clear S1, S2 positive bowel sounds, abdomen is soft, nontender neuro patient is alert x3, no focal deficits Bilateral foot dressings intact DS: Data Data Completed and Pending Pending studies at discharge: Pending at discharge 03/06/23 12:57 Surgical [PTH] Routine Labs on day of discharge: Laboratory Results - last 24 hr 03/09/23 03/09/23 03/10/23 16:45 20:20 05:23 Creatinine 0.67 Estim Creat Clear Calc 79.0 Estimated GFR > 60 POC Glucose 196 H 317 H 03/10/23 03/10/23 07:08 11:22 Creatinine Estim Creat Clear Calc Estimated GFR POC Glucose 297 H 270 H Discharge Plan Discharge Anticipated Discharge Date/Time: 03/10/23 12:27 Patient Disposition: Home, Self-Care Discharge Diagnosis: Osteomyelitis bilateral 4th toes Normocytic anemia Hypokalemia Referrals: Justin Villanueva MD [Physician] - 1 Week Yun Day MD [Primary Care Provider] - 1 Week Discharge Medications: New olanzapine 10 mg Tablet 10 mg PO BID Qty: 60 0RF hydralazine 25 mg Tablet 25 mg PO QID Qty: 120 0RF Protocol: Hold for SBP< HOLD for SBP < : 90 doxycycline monohydrate 100 mg Capsule 100 mg PO BID Qty: 8 0RF ferrous sulfate 324 mg (65 mg iron) Tablet,Delayed Release (Dr/Ec) 324 mg PO DAILY Qty: 30 0RF (DME) cane Device See Rx Instructions .Route Qty: 1 0RF Rx Instructions: As directed Continued atorvastatin 80 mg Tablet 80 mg PO BEDTIME Qty: 30 1RF clonidine HCl 0.1 mg Tablet 0.1 mg PO BID Qty: 60 1RF Protocol: Hold for SBP< HOLD for SBP < : 90 aspirin 81 mg Tablet,Delayed Release (Dr/Ec) 81 mg PO DAILY Qty: 30 0RF amlodipine 10 mg Tablet 10 mg PO DAILY Qty: 30 1RF Protocol: Hold for SBP< HOLD for SBP < : 90 lisinopril 10 mg Tablet 10 mg PO DAILY Qty: 30 1RF Protocol: Hold for SBP< HOLD for SBP < : 90 insulin lispro [Humalog U-100 Insulin] 100 unit/mL Solution See Protocol subcut QIDACHS Qty: 10 1RF Protocol: Insulin Correction Scale Less than or equal to 110 ---- Give (units): 0 111 to 150 Give (units): 0 151 to 200 Give (units): 2 201 to 250 Give (units): 4 251 to 300 Give (units): 6 301 to 350 Give (units): 8 Greater than 350 Give (units): 10 Call MD if Blood Glucose > : 350 (DME) insulin admin supplies Insulin Pen See Rx Instructions .Route Qty: 1 0RF Rx Instructions: As directed levetiracetam [Keppra] 750 mg Tablet 750 mg PO BID insulin glargine [Lantus U-100 Insulin] 100 unit/mL solution 26 unit subcut DAILY metformin 750 mg tablet extended release 24 hr 750 mg PO BEDTIME trazodone 50 mg Tablet 50 mg PO BEDTIME Discharge Orders: Discharge Order (Routine); Ordered 03/10/23 Ordered By: Carol Flores Diet: Advance to usual diet Activity on Discharge: As tolerated Stand Alone Forms: Patient Portal Discharge page Activity Restrictions/Additional Instructions: Dressing changes bilateral foot: Fluffed 4x4 gauze to cover the amputated site and between each toe followed by 4 in Jorge A and 4 in Luca bandage, to be changed at least every other day. Follow-up in office (Dr. Villanueva [phone]) in 1- 2 weeks for wound check and possible suture removal. Care Plan Goals: daily dressing changes Health Concerns: Osteomyelitis bilateral 4th toes Normocytic anemia Hypokalemia Plan of Treatment: Follow-up with general surgeon in 1 week Take all medications as prescribed Assessment: See discharge summary
--- NOTE | 2023-03-10 12:34 | MHC.CM.PN ---
Addendum entered by Kati Glaser 03/10/23 15:37: [facility] will not be providing home services. The patients insurance is not active. A referral to [facility] has been sent. The patient is aware that she will be contacted by [employer] to assist with her Medicaid PCC. The Provider has been notified. Patient will be given supplies for wound care. Original Note: Patient is discharged today. She will receive home services with [facility]. She will transport home via BLS. 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
[2023-03-10] MEDS: Heparin Sodium,Porcine 5,000 UNIT/ML VIAL 5000 UNIT SUBCUT (12:47)
[2023-03-10 15:35] VITALS: BP 154/82; PULSE 88; RESP 16; TEMP 36.2; O2SAT 95
[2023-03-10 16:28] LABS: Glucose, Whole Blood 366 mg/dL (60-115)
== END 2023-03-10 19:01 | disposition home or self-care (01) | DRG 710 ==
LOC: HO.ED 19:23 → HO.EDOVER 21:44 → HO.S3 23:32
PROVIDERS: Internal Medicine; Student in an Organized Health Care Education/Training Program; Surgery; Admitting Provider Student in an Organized Health Care Education/Training Program; Emergency Provider Emergency Medicine; PCP Family Medicine; Visit Provider Nurse Practitioner Acute Care
PROC: 0Y6W0Z0 Detachment at Left 4th Toe, Complete, Open Approach (ICD-10-PCS; principal; 2023-03-06 12:20)
DX: A41.9 Sepsis, unspecified organism (principal); E11.52 Type 2 diabetes mellitus with diabetic peripheral angiopathy with gangrene; M86.171 Other acute osteomyelitis, right ankle and foot; E11.69 Type 2 diabetes mellitus with other specified complication; M86.172 Other acute osteomyelitis, left ankle and foot; G40.909 Epilepsy, unspecified, not intractable, without status epilepticus; E87.6 Hypokalemia; I10 Essential (primary) hypertension; M84.478A Pathological fracture, left toe(s), initial encounter for fracture; M84.477A Pathological fracture, right toe(s), initial encounter for fracture; L89.890 Pressure ulcer of other site, unstageable; F17.210 Nicotine dependence, cigarettes, uncomplicated; Z71.6 Tobacco abuse counseling; F31.9 Bipolar disorder, unspecified; Z91.040 Latex allergy status; Z79.4 Long term (current) use of insulin; Z79.82 Long term (current) use of aspirin; Z79.84 Long term (current) use of oral hypoglycemic drugs; Z79.899 Other long term (current) drug therapy
CPT/HCPCS: 36415; 73620; 80048; 80076; 80202; 82272; 82565; 82607; 82746; 82947; 83540; 83605; 85025; 85027; 85610; 85652; 85730; 86140; 86850; 86900; 86901; 87040; 88305; 88311; 97162; 99285; J1643; J2250; J2270; J2371; J2543; J2795; J3010; J3370; J3371

== ENCOUNTER → 2023-03-04 21:11 | Outpatient (BNV) | payer OTHER, SELFPAY | PROVIDERS: Admitting Provider Student in an Organized Health Care Education/Training Program; Emergency Provider Emergency Medicine; PCP Family Medicine; Visit Provider Social Worker | DX: F31.60 Bipolar disorder, current episode mixed, unspecified (principal) | CPT/HCPCS: 99232 ==

== ENCOUNTER → 2023-03-04 21:11 | Outpatient (BNV) | payer MEDICAID, SELFPAY | PROVIDERS: Admitting Provider Student in an Organized Health Care Education/Training Program; Emergency Provider Emergency Medicine; PCP Family Medicine; Visit Provider Internal Medicine | DX: M86.9 Osteomyelitis, unspecified (principal) | CPT/HCPCS: 99223; 99232; 99239 ==

== ENCOUNTER → 2023-03-04 21:11 | Outpatient (BNV) | payer MEDICAID, SELFPAY | PROVIDERS: Admitting Provider Student in an Organized Health Care Education/Training Program; Emergency Provider Emergency Medicine; PCP Family Medicine; Visit Provider Surgery | DX: M86.9 Osteomyelitis, unspecified (principal) | CPT/HCPCS: 28810; 99024; 99222 ==

== ENCOUNTER 2023-03-17 14:09 | Outpatient (AMB) | payer MEDICAID, SELFPAY ==
--- NOTE | 2023-03-17 14:15 | MHC.OFFVIS ---
Intake Vital Signs 03/17/23 14:24 Height 5 ft 4 in Weight 111 lb BMI 19.1 BP 131/65 Blood Pressure Location Lt brachial Position Sitting Pulse 92 Intake Visit Reasons: s/p amputation bilateral 4th toes Intake Note: Patient is seen in office for post op assessment post amputation of bilateral 4th toes. 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 Accompanied by: Other Relationship Allergies haloperidol Allergy (Severe, Verified 03/17/23 14:24) Nausea and Vomiting lithium Allergy (Severe, Verified 03/17/23 14:24) Nausea and Vomiting latex Allergy (Mild, Verified 03/17/23 14:24) Itching Medication List - Last Reconciled 03/17/23 by Justin Villanueva MD amlodipine 10 mg See Protocol PO DAILY aspirin 81 mg PO DAILY atorvastatin 80 mg PO BEDTIME cane As directed clonidine HCl 0.1 mg See Protocol PO BID doxycycline monohydrate 100 mg PO BID ferrous sulfate 324 mg PO DAILY hydralazine 25 mg See Protocol PO QID insulin admin supplies As directed insulin glargine (Lantus U-100 Insulin) 26 units subcut DAILY insulin lispro (Humalog U-100 Insulin) See Protocol units subcut QIDACHS levetiracetam (Keppra) 750 mg PO BID lisinopril 10 mg See Protocol PO DAILY metformin ER 750 mg PO BEDTIME olanzapine 10 mg PO BID trazodone 50 mg PO BEDTIME HPI HPI Comments History of Present Illness Details Raiza returns following discharge after bilateral 4th toe amputations for gangrene and osteomyelitis. She has been changing the dressings on her own and reports some discharge from the right toe. She denies any fever or chills. She generally feels well. [facility] Medical History Bipolar 1 disorder Diabetes Occipital cerebral infarction Seizure disorder Family History Father Diabetes Mother Stroke Social History Household Members: Other Housing: Homeless Do you presently have visiting nurse or other home services: No Patient Tobacco Use Status: Current everyday Tobacco user Tobacco use type: Cigarette Cigarette Packs Per Day: 2 Cigarettes Per Day: 40.0 Substance Use Type: Marijuana Advance Directives Date on File: 09/12/21 service: No Sexual orientation: Don't Know Physical Exam Vital Signs: Last Vital Signs Pulse 92 03/17/23 14:24 BP 131/65 03/17/23 14:24 BMI result Body Mass Index 19.1 Const General: no acute distress Nutritional Appearance: well nourished Orientation/consciousness: patient oriented x3 Resp Effort & Inspection: normal respiratory effort Neuro General: patient oriented x3 Extrem Other: Bilateral 4th toe dressings were changed. There is some pulling of the sutures of the right foot with drainage noted. The left foot is clean, dry and intact. Clean dry dressings were applied. No evidence of wound infection is identified. Assessment & Plan Assessment & Plan (1) Osteomyelitis of fourth toe of left foot: Code(s): M86.9 - Osteomyelitis, unspecified (2) Osteomyelitis of fourth toe of right foot: Code(s): M86.9 - Osteomyelitis, unspecified Plan 57-year-old female patient status post bilateral 4th toe amputations for osteomyelitis. Her wounds are clean and intact with slight separation in the right foot. She should continue with dressing changes, daily on the right side, every other day on the left side. She should avoid prolonged standing and walking as much as possible. I have asked her to return in 2 weeks for suture removal. Medications: Discontinued metformin ER 1,500 mg (2 x 750 mg) PO BEDTIME 60 tabs 1RF insulin glargine 12 units (0.12 mL) subcut DAILY 10 mL 1RF Coding Level of Care Code Global (77133) Diagnoses Osteomyelitis of fourth toe of left foot M86.9 Osteomyelitis of fourth toe of right foot M86.9
[2023-03-17 14:24] VITALS: BP 131/65; PULSE 92; BMI 19.1
== END 2023-03-17 14:36 | disposition home or self-care (01) ==
PROVIDERS: PCP Family Medicine; Visit Provider Surgery
DX: M86.9 Osteomyelitis, unspecified (principal)
CPT/HCPCS: 99024

== ENCOUNTER → 2023-03-17 14:09 | Outpatient (BNVA) | payer MEDICAID, SELFPAY | PROVIDERS: PCP Family Medicine; Visit Provider Surgery ==

== ENCOUNTER 2023-03-24 15:15 | Inpatient (IN) | payer OTHER, MEDICAID, SELFPAY ==
--- NOTE | ~2023-03-24 | CT_ITS ---
EXAMINATION: CT ABDOMEN AND PELVIS WITHOUT AND WITH CONTRAST CLINICAL INFORMATION: Adrenal lesion COMPARISON: CT angiogram abdomen 04/08/2023: Several indeterminate left renal lesions as described above. Follow-up dedicated renal imaging with either CT or MRI with and without contrast recommended. 1.5 x 2 cm right adrenal lesion. Given hypertension, endocrinology follow-up and additional imaging may be helpful. This could be done at the same time as renal imaging if clinically indicated. TECHNIQUE: Multidetector volumetric imaging was performed of the abdomen and pelvis before and after the IV administration of 85 mL of Omnipaque 350 intravenous contrast. Sagittal and coronal reformatted images were obtained on the technologist's workstation. This CT examination was performed using dose optimization techniques as appropriate, variously including the following: *Automated exposure control *Adjustment of mA and/or kV according to patient size (this includes techniques or standardized protocols for targeted exams where dose is matched to indication/reason for exam; i.e. extremities or head) *Use of iterative reconstruction technique DLP: 788 mGy-cm FINDINGS: LUNG BASES: The visualized lung bases are unremarkable. LIVER, GALLBLADDER, AND BILIARY TREE: The liver is normal in size, shape, and attenuation. No focal hepatic lesion or biliary ductal dilatation is present. The gallbladder is unremarkable with no evidence of radiopaque gallstones, gallbladder wall thickening, or obvious pericholecystic inflammatory changes. PANCREAS: Unremarkable SPLEEN: Unremarkable ADRENAL GLANDS: The left adrenal gland appears normal. On noncontrast imaging there is a 1.8 x 1.2 x 1.9 cm right adrenal mass that measures water density consistent with a benign adrenal adenoma based upon noncontrast imaging alone . For washout calculations: Noncontrast: 0 Hounsfield units Immediate postcontrast: 36 Hounsfield units 15 minute delay: 10 Hounsfield units Absolute as well as relative washout of 72% is also consistent with a benign adenoma KIDNEYS AND URETERS: The right kidney appears normal. Multiple left-sided benign Bosniak class I renal cysts are noted, the largest measuring 5 cm there are also smaller hyperattenuating cysts present, Bosniak class II. All of these abnormalities require no additional imaging or follow-up. No solid renal masses are seen. Calcifications are seen in both kidneys almost all of which are vascular. No definitive nephrolithiasis. The ureters are unremarkable. BLADDER: Unremarkable GASTROINTESTINAL TRACT: The small and large bowel are unremarkable. The appendix is unremarkable. ABDOMINAL WALL: No significant hernia is appreciated. LYMPH NODES: Normal VASCULAR: Marked calcific and noncalcific atherosclerotic changes are seen in the aorta and iliofemoral vessels. In the distal left common iliac artery there is extensive calcification is seen intraluminally and I suspect there may be a stenosis. PELVIC VISCERA: The uterus and adnexa are unremarkable. OSSEOUS STRUCTURES: There is grade 1 anterolisthesis of L4 upon L5. No bony destructive lesions are seen. CT/CT abdomen pelvis wo/w IV con IMPRESSION: 1. Benign right adrenal adenoma. 2. Benign Bosniak class I and class II left renal cysts which need no further follow-up. 3. Other incidental findings as described above including grade 1 anterolisthesis of L4 upon L5 and marked calcific and noncalcific atherosclerotic changes in the aorta and iliofemoral vessels with possible left common iliac stenosis. Fleischner guidelines were followed.
--- NOTE | ~2023-03-24 | CT_ITS ---
EXAMINATION: CT ANGIOGRAM ABDOMEN CLINICAL INFORMATION: Renal artery stenosis COMPARISON: Renal ultrasound and Doppler exam 04/07/2023 TECHNIQUE: Multiple axial images were obtained through the abdomen following the administration of 80 mL Omnipaque 350 intravenous contrast. Images were reviewed on a dedicated 3-D workstation. This CT examination was performed using dose optimization techniques as appropriate, variously including the following: *Automated exposure control *Adjustment of mA and/or kV according to patient size (this includes techniques or standardized protocols for targeted exams where dose is matched to indication/reason for exam; i.e. extremities or head) *Use of iterative reconstruction technique DLP: 201 mGy-cm FINDINGS: CTA: There is evidence of atherosclerotic disease. The abdominal aorta is normal in caliber. There are mild bilateral common iliac artery stenoses. There is a mild proximal left internal iliac artery stenosis. There is a mild stenosis at the origin of the celiac axis. The SMA is patent. There is a replaced right hepatic artery. The There is a mild stenosis at the origin of the ESTEFANI. There are single patent renal arteries bilaterally. There is calcified plaque at the origin of both renal arteries. The right renal artery is patent without focal stenosis. The left renal artery is tortuous. There may be a very mild stenosis of the left mid renal artery for example coronal reconstructed image 64 series 10. The left renal artery is otherwise patent. The lung bases are clear. The liver is normal. The gallbladder is contracted. There is no biliary duct dilatation. The pancreas is normal. The spleen is normal. There is a 1.5 x 2 cm right adrenal lesion. Hounsfield units post-IV contrast measure 30. The left adrenal gland is normal. Right kidney: There is a small 3 mm stone in the mid to lower pole of the right kidney. Left kidney: There are 2 small 1 to 2 mm stones in the mid to lower pole of the left kidney. There are multiple left renal simple appearing cysts. Largest cyst measures 5 cm. No imaging follow-up recommended. There are several indeterminate lesions in the left kidney. There is a 1 cm lesion exophytic to the posterior lateral upper pole axial image 27 series 6 Hounsfield units post-IV contrast measuring 86. There is a 7 mm low-attenuation lesion exophytic to the posterior upper pole axial image 27 series 6 Hounsfield units measure 62. There is a 5 mm low-attenuation lesion exophytic to the posterior upper pole axial image 29 series 6 Hounsfield units postcontrast measuring 74. There is a 1 cm lesion exophytic to the lateral lower pole of the left kidney axial image 36 series 6 Hounsfield units post-IV contrast measuring 62. Stool throughout the colon questionable for constipation. No ascites or enlarged lymph nodes. No hernia. Degenerative changes of the spine. Mild anterior subluxation of L4 with respect L5 measuring 5 mm. This may be due to facet arthritis. CT/CT angio abdomen IMPRESSION: Atherosclerotic disease. No significant renal artery stenosis. Calcified plaque at both renal artery origins. Tortuous left renal artery and question mild left mid renal artery stenosis. Several indeterminate left renal lesions as described above. Follow-up dedicated renal imaging with either CT or MRI with and without contrast recommended. 1.5 x 2 cm right adrenal lesion. Given hypertension, endocrinology follow-up and additional imaging may be helpful. This could be done at the same time as renal imaging if clinically indicated. Fleischner guidelines were followed.
--- NOTE | ~2023-03-24 | MR_ITS ---
EXAMINATION: MR BRAIN WITHOUT CONTRAST CLINICAL INFORMATION: Worsening behavior and cognition. COMPARISON: Brain MRI August 15, 2021. TECHNIQUE: Multiplanar, multisequence imaging of the brain was performed without intravenous contrast. FINDINGS: There is redemonstration of chronic infarcts within the left cerebellum and small single chronic lacunar infarct in the right cerebellum. Mild T2/FLAIR hyperintensity is seen within the cerebral white matter most likely representing chronic microangiopathy. The ventricles are normal in size and configuration without hydrocephalus. There is no mass or extra-axial fluid collection. No hemorrhage is seen. The arterial flow voids appear preserved at the skull base. The extracranial structures are within normal limits. MR/MR head/brain wo con IMPRESSION: No acute intracranial abnormality. 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 Background changes of mild chronic microangiopathy.
--- NOTE | ~2023-03-24 | US_ITS ---
EXAMINATION: US RETROPERITONEAL LIMITED (RENAL ONLY) CLINICAL INFORMATION: Hypertension.. COMPARISON: None available. TECHNIQUE: Grayscale color and Doppler imaging of the kidneys including waveform spectral analysis of the renal arteries and renal veins. FINDINGS: RIGHT KIDNEY: 11.4 x 7.4 x 7 cm (SAG x AP x TRV). The kidney is normal in size, contour, and echogenicity. Renal cortical thickness is normal. No calculi or focal parenchymal lesions. No hydronephrosis. LEFT KIDNEY: 12 x 0.8 x 5.1 cm (SAG x AP x TRV). The kidney is normal in size, contour, and echogenicity. Renal cortical thickness is normal. There are multiple left renal cysts. Largest cyst measures 4.6 x 3.8 x 4.7 cm in the medial midpole. No imaging follow-up recommended. No calculi. No hydronephrosis. Aortic peak systolic velocity is elevated measuring between 131 and 167 cm/s. This is too high to be used to calculate renal artery to aorta ratio. Right renal artery systolic velocities measure 178, 152 and 1 12 cm/s. Resistive indices of the segmental right renal arteries are slightly elevated measuring 0.7-0.8. The right renal vein is patent. Left renal artery peak velocities measure 164, 250 and 158 cm/s. Resistive indices of the segmental renal arteries in the left kidney are slightly elevated measuring 0.7-0.8. The left renal vein is patent. US/US renal BI IMPRESSION: Increased peak systolic velocity in the mid left renal artery suggestive renal artery stenosis. Follow-up imaging recommended, preferably CTA if normal renal function.
--- NOTE | ~2023-03-24 | US_ITS ---
EXAMINATION: US RETROPERITONEAL LIMITED (RENAL ONLY) CLINICAL INFORMATION: Hypertension.. COMPARISON: None available. TECHNIQUE: Grayscale color and Doppler imaging of the kidneys including waveform spectral analysis of the renal arteries and renal veins. FINDINGS: RIGHT KIDNEY: 11.4 x 7.4 x 7 cm (SAG x AP x TRV). The kidney is normal in size, contour, and echogenicity. Renal cortical thickness is normal. No calculi or focal parenchymal lesions. No hydronephrosis. LEFT KIDNEY: 12 x 0.8 x 5.1 cm (SAG x AP x TRV). The kidney is normal in size, contour, and echogenicity. Renal cortical thickness is normal. There are multiple left renal cysts. Largest cyst measures 4.6 x 3.8 x 4.7 cm in the medial midpole. No imaging follow-up recommended. No calculi. No hydronephrosis. Aortic peak systolic velocity is elevated measuring between 131 and 167 cm/s. This is too high to be used to calculate renal artery to aorta ratio. Right renal artery systolic velocities measure 178, 152 and 1 12 cm/s. Resistive indices of the segmental right renal arteries are slightly elevated measuring 0.7-0.8. The right renal vein is patent. Left renal artery peak velocities measure 164, 250 and 158 cm/s. Resistive indices of the segmental renal arteries in the left kidney are slightly elevated measuring 0.7-0.8. The left renal vein is patent. US/US renal doppler IMPRESSION: Increased peak systolic velocity in the mid left renal artery suggestive renal artery stenosis. Follow-up imaging recommended, preferably CTA if normal renal function.
--- NOTE | ~2023-03-24 | XR_ITS ---
EXAMINATION: XR FOOT, RIGHT CLINICAL INFORMATION: Fall. Pain and bruising. COMPARISON: Previous x-ray February 2023 TECHNIQUE: AP, lateral, and oblique views of the right foot. FINDINGS: Interval amputation of the fourth toe. There is bone loss irregularity of the fourth metatarsal head. There is periosteal reaction. Findings are questionable for osteomyelitis. There is periosteal reaction adjacent shaft of the third metatarsal bone as well. There is periosteal reaction of proximal phalanx of the third toe questionable for osteomyelitis as well. There is question of a pathologic fracture of the base of proximal phalanx of the toe. Question accessory ossicle versus old trauma to the base fifth metatarsal bone similar to previous exam. Question erosive changes of the distal tuft of the great toe. No abnormal air collection or soft tissue foreign body. XR/XR foot RT 2V IMPRESSION: No acute fracture or dislocation. Interval amputation of the fourth toe. Erosive destructive changes of the fourth metatarsal head and periosteal reaction suggestive of osteomyelitis. Periosteal reaction of the shaft of the third metatarsal bone also questionable for osteomyelitis. Question osteomyelitis and pathologic fracture of the base of the proximal phalanx of the third toe. Erosive changes of the distal tuft of the great toe questionable for osteomyelitis as well.
--- NOTE | ~2023-03-24 | XR_ITS ---
Examination: Skull. Clinical indications: Pre-MRI screening. TECHNIQUE: Skull 2 views. Chest x-ray. FINDINGS: SKULL: AP, and lateral views of the skull reveal no visible bony abnormality. No radiopaque metallic foreign body seen. The soft tissues are normal. CHEST: The lungs are well-expanded and clear. Heart size and pulmonary vascularity is normal. No metallic foreign body seen. No gross bony abnormality seen. The soft tissues are normal. XR/XR pre mri screening IMPRESSION: No radiopaque foreign body seen in the skull. No radiopaque foreign body seen in the chest. The lungs are clear.
[2023-03-24 15:41] VITALS: BP 99/55; PULSE 80; PULSE 96; RESP 16; TEMP 36.6; O2SAT 94; BMI 19.7
--- NOTE | 2023-03-24 15:43 | PC.NURSE ---
pt JERRELL, [employer] fire, [employer] on board and [employer] police - pt was attempting to go to her drs office for a visit after being in [facility] last night. pt had recent JUANA toe amputations and is homeless.. she reports walking a lot and fearing that her feet have become infected. when pt arrived to her drs office in an uber the uber truck driver teamster had a difficult time waking the pt which is when EMS and the police were called. when they woke her pt became agitated and uncooperative, she threw herself on the ground, began hitting herself including punching herself in the face, pt also bit her own hand and choked herself. pt was brought in in 2 soft wrist restraints. initially she refused to knife changer and informed staff that we were not to touch her, that she only wants to see her dr. pt did eventually agree to knife changer with staff and security present.
--- NOTE | 2023-03-24 17:02 | ED_ITS ---
HPI - Psych General Chief Complaint: Psychiatric Symptoms Stated Complaint: SEC 12 BY CPD, DESTINYM,TRIED TO CHOKE/BIT SELF Time Seen by Provider: 03/24/23 16:26 History of Present Illness HPI Narrative: Patient is a 57-year-old female with a history of diabetes, osteomyelitis status post bilateral toes amputation approximately 5 weeks ago. 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 Upon arrival at the doctor's office patient became less responsive not answering questions subsequently started to bite herself and also to grab onto her own throat. Patient denies any suicidal homicidal ideation at this time. Denies any recreational drug use. She had a behavior outburst. Police and EMS was called. Patient was sent to the ED for further evaluation. Related Data Home Medications Medication Instructions Recorded Confirmed insulin glargine 100 unit/mL 26 unit subcut DAILY 03/04/23 03/24/23 subcutaneous solution (Lantus U-100 Insulin) levetiracetam 750 mg tablet 750 mg PO BID 03/04/23 03/24/23 (Keppra) metformin 750 mg tablet,extended 750 mg PO BEDTIME 03/04/23 03/24/23 release 24 hr trazodone 50 mg tablet 50 mg PO BEDTIME 03/05/23 03/24/23 Previous Rx's Medication Instructions Recorded doxycycline monohydrate 100 mg 100 mg PO BID #8 caps 03/10/23 capsule ferrous sulfate 324 mg (65 mg 324 mg PO DAILY #30 tabs 03/10/23 iron) tablet,delayed release hydralazine 25 mg tablet 25 mg PO QID #120 tabs 03/10/23 olanzapine 10 mg tablet 10 mg PO BID #60 tabs 03/10/23 Allergies Allergy/AdvReac Type Severity Reaction Status Date / Time haloperidol Allergy Severe Nausea and Verified 03/17/23 14:24 Vomiting lithium Allergy Severe Nausea and Verified 03/17/23 14:24 Vomiting latex Allergy Mild Itching Verified 03/17/23 14:24 Review of Systems Review of Systems: No fever no chills no chest pain or shortness of breath no diaphoresis No nausea no vomiting Yes all other systems are reviewed and are negative PMFSH Past Medical History Attestation statement: The following information was validated with the patient. Medical History Bipolar 1 disorder Diabetes Occipital cerebral infarction Osteomyelitis Seizure disorder Family History Family History Father Diabetes Mother Stroke Social History Social History Household Members: Other Housing: Homeless Do you presently have visiting nurse or other home services: No Patient Tobacco Use Status: Current everyday Tobacco user Tobacco use type: Cigarette Cigarette Packs Per Day: 2 Cigarettes Per Day: 40.0 Substance Use Type: Marijuana Advance Directives: Yes Advance Directives on File: Yes Advance Directives Date on File: 09/12/21 service: No Sexual orientation: Don't Know Physical Exam Vital Signs: Vital Signs: Last Vital Signs Temp 97.9 F 03/24/23 15:41 Pulse 80 03/24/23 15:41 Resp 16 03/24/23 15:41 BP 99/55 L 03/24/23 15:41 Pulse Ox 94 03/24/23 15:41 O2 Del Method Room Air 03/24/23 15:41 BMI result Body Mass Index 19.7 Appearance: Alert. Oriented X3. No acute distress. Eyes: Pupils equal, round and reactive to light. ENT: Pharynx normal. Neck: Normal inspection. Neck supple. No lymph nodes noted. No crepitus CVS: Normal heart rate and rhythm. Pulses normal. Normal S1 and S2 Respiratory: No respiratory distress. Breath sounds normal. No Wheezing. No rales Abdomen: Soft and nontender. No rigidity. No distention. good BS x4 Skin: Skin warm and dry. Normal skin color. Normal skin turgor. Extremities: No lower extremity edema. Neurovascular intact to all extremities. Bilateral post amputation wound intact. There is no redness is no discharge patient's sutures were in place. Neuro: Oriented X 3. No motor deficit. No sensory deficit. Moving all extermities. No slurred speech. Gross cranial nerve intact Medications Administered Discontinued Medications Generic Name Dose Route Start Last Admin Trade Name Freq PRN Reason Stop Dose Admin Olanzapine 10 mg 03/24/23 19:45 03/24/23 19:48 Olanzapine 10 Mg Tablet PO 03/24/23 19:46 10 mg ONCE ONE Administration Medical Decision Making Medical Decision Making MDM Narrative: Crisis to evaluate patient. No acute distress. Did not seem to have suffered any trauma. Patient's trachea is midline. Speaking in complete sentences when asked. Answering simple questions. Will get crisis to evaluate patient. Patient was agitated. Given a dose of olanzapine. It did not work very well. Patient monitor further. Given additional olanzapine, Ativan, Benadryl. Will monitor carefully. Care team has a chance to evaluate patient. Will admit patient currently patient is under bed placement. 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 03/24/23 19:23 03/24/23 19:23 Labs: Lab Results 03/24/23 03/24/23 03/24/23 Range/Units 18:10 19:23 19:23 WBC 10.0 (4.8-10.8) X10*3/uL RBC 3.68 L (4.20-5.50) X10*6/uL Hgb 10.6 L (12.0-16.0) g/dl Hct 32.3 L (37.0-47.0) % MCV 87.8 (80.0-98.0) fL MCH 28.8 (27.0-33.0) pg MCHC 32.8 (31.0-35.0) g/dl RDW 14.2 (11.0-16.0) % Plt Count 535 H (160-400) X10*3/uL MPV 8.8 L (9.4-12.3) fL Immature Gran % (Auto) 0.4 (0.0-0.4) % Neut % (Auto) 71.7 (45-73) % Lymph % (Auto) 20.4 (20-40) % [place] % (Auto) 5.8 (2-11) % Eos % (Auto) 1.5 (0-4) % Baso % (Auto) 0.2 (0-2) % Lymph # (Auto) 2.0 (1.2-4.9) X10*3/uL [place] # (Auto) 0.6 (0.1-1.2) X10*3/uL Eos # (Auto) 0.2 (0.0-0.4) X10*3/uL Baso # (Auto) 0.0 (0.0-0.2) X10*3/uL Abs Immat Gran (auto) 0.04 H (0.00-0.03) X10*3/uL Absolute Neuts (auto) 7.1 (2.0-8.3) x10*3/uL Absolute Nucleated RBC 0.000 (0.0-0.012) X10*3/uL Nucleated RBC % (auto) 0.0 (0.0-0.2) /100WBC Sodium 138 (135-145) mmol/L Potassium 4.0 D (3.3-5.1) mmol/L Chloride 105 (96-108) mmol/L Carbon Dioxide 27 (22-29) mmol/L Anion Gap 10 L (12-20) BUN 11 (9-16) mg/dL Creatinine 0.75 (0.5-1.4) mg/dL Estim Creat Clear Calc 67.3 Estimated GFR > 60 POC Glucose 168 H (60-115) mg/dL Random Glucose 248 H (60-115) mg/dL Calcium 10.4 H (8.4-10.2) mg/dL Total Bilirubin 0.2 (0.0-1.0) mg/dL AST 12 (5-31) U/L ALT 14 (0-31) U/L Alkaline Phosphatase 119 H (39-117) U/L Total Protein 6.3 L (6.5-8.0) g/dL Albumin 3.5 (3.5-5.0) g/dL Urine Color Urine Appearance Urine pH (5.0-9.0) Ur Specific [place] (1.005-1.025) Urine Protein (Neg-Trace) mg/dL Urine Glucose (UA) (Negative) mg/dL Urine Ketones (Negative) mg/dL Urine Blood (Negative) Urine Nitrite (Negative) Ur Leukocyte Esterase (Negative) Urine Opiates Screen (Not Detect) Urine Fentanyl Screen (Not Detect) Ur Barbiturates Screen (Not Detect) Ur Phencyclidine Scrn (Not Detect) Ur Amphetamines Screen (Not Detect) U Benzodiazepines Scrn (Not Detect) Urine Cocaine Screen (Not Detect) U Marijuana (THC) Screen (Not Detect) Ethyl Alcohol mg/dL 03/24/23 03/24/23 03/24/23 Range/Units 19:23 19:47 19:47 WBC (4.8-10.8) X10*3/uL RBC (4.20-5.50) X10*6/uL Hgb (12.0-16.0) g/dl Hct (37.0-47.0) % MCV (80.0-98.0) fL MCH (27.0-33.0) pg MCHC (31.0-35.0) g/dl RDW (11.0-16.0) % Plt Count (160-400) X10*3/uL MPV (9.4-12.3) fL Immature Gran % (Auto) (0.0-0.4) % Neut % (Auto) (45-73) % Lymph % (Auto) (20-40) % [place] % (Auto) (2-11) % Eos % (Auto) (0-4) % Baso % (Auto) (0-2) % Lymph # (Auto) (1.2-4.9) X10*3/uL [place] # (Auto) (0.1-1.2) X10*3/uL Eos # (Auto) (0.0-0.4) X10*3/uL Baso # (Auto) (0.0-0.2) X10*3/uL Abs Immat Gran (auto) (0.00-0.03) X10*3/uL Absolute Neuts (auto) (2.0-8.3) x10*3/uL Absolute Nucleated RBC (0.0-0.012) X10*3/uL Nucleated RBC % (auto) (0.0-0.2) /100WBC Sodium (135-145) mmol/L Potassium (3.3-5.1) mmol/L Chloride (96-108) mmol/L Carbon Dioxide (22-29) mmol/L Anion Gap (12-20) BUN (9-16) mg/dL Creatinine (0.5-1.4) mg/dL Estim Creat Clear Calc Estimated GFR POC Glucose (60-115) mg/dL Random Glucose (60-115) mg/dL Calcium (8.4-10.2) mg/dL Total Bilirubin (0.0-1.0) mg/dL AST (5-31) U/L ALT (0-31) U/L Alkaline Phosphatase (39-117) U/L Total Protein (6.5-8.0) g/dL Albumin (3.5-5.0) g/dL Urine Color Yellow Urine Appearance Clear Urine pH 6.0 (5.0-9.0) Ur Specific [place] 1.010 (1.005-1.025) Urine Protein Trace (Neg-Trace) mg/dL Urine Glucose (UA) Negative (Negative) mg/dL Urine Ketones Negative (Negative) mg/dL Urine Blood Negative (Negative) Urine Nitrite Negative (Negative) Ur Leukocyte Esterase Negative (Negative) Urine Opiates Screen Not Detected (Not Detect) Urine Fentanyl Screen Not Detected (Not Detect) Ur Barbiturates Screen Not Detected (Not Detect) Ur Phencyclidine Scrn Not Detected (Not Detect) Ur Amphetamines Screen Not Detected (Not Detect) U Benzodiazepines Scrn Not Detected (Not Detect) Urine Cocaine Screen Not Detected (Not Detect) U Marijuana (THC) Screen Not Detected (Not Detect) Ethyl Alcohol < 10 mg/dL 03/24/23 Range/Units 20:01 WBC (4.8-10.8) X10*3/uL RBC (4.20-5.50) X10*6/uL Hgb (12.0-16.0) g/dl Hct (37.0-47.0) % MCV (80.0-98.0) fL MCH (27.0-33.0) pg MCHC (31.0-35.0) g/dl RDW (11.0-16.0) % Plt Count (160-400) X10*3/uL MPV (9.4-12.3) fL Immature Gran % (Auto) (0.0-0.4) % Neut % (Auto) (45-73) % Lymph % (Auto) (20-40) % [place] % (Auto) (2-11) % Eos % (Auto) (0-4) % Baso % (Auto) (0-2) % Lymph # (Auto) (1.2-4.9) X10*3/uL [place] # (Auto) (0.1-1.2) X10*3/uL Eos # (Auto) (0.0-0.4) X10*3/uL Baso # (Auto) (0.0-0.2) X10*3/uL Abs Immat Gran (auto) (0.00-0.03) X10*3/uL Absolute Neuts (auto) (2.0-8.3) x10*3/uL Absolute Nucleated RBC (0.0-0.012) X10*3/uL Nucleated RBC % (auto) (0.0-0.2) /100WBC Sodium (135-145) mmol/L Potassium (3.3-5.1) mmol/L Chloride (96-108) mmol/L Carbon Dioxide (22-29) mmol/L Anion Gap (12-20) BUN (9-16) mg/dL Creatinine (0.5-1.4) mg/dL Estim Creat Clear Calc Estimated GFR POC Glucose 247 H (60-115) mg/dL Random Glucose (60-115) mg/dL Calcium (8.4-10.2) mg/dL Total Bilirubin (0.0-1.0) mg/dL AST (5-31) U/L ALT (0-31) U/L Alkaline Phosphatase (39-117) U/L Total Protein (6.5-8.0) g/dL Albumin (3.5-5.0) g/dL Urine Color Urine Appearance Urine pH (5.0-9.0) Ur Specific [place] (1.005-1.025) Urine Protein (Neg-Trace) mg/dL Urine Glucose (UA) (Negative) mg/dL Urine Ketones (Negative) mg/dL Urine Blood (Negative) Urine Nitrite (Negative) Ur Leukocyte Esterase (Negative) Urine Opiates Screen (Not Detect) Urine Fentanyl Screen (Not Detect) Ur Barbiturates Screen (Not Detect) Ur Phencyclidine Scrn (Not Detect) Ur Amphetamines Screen (Not Detect) U Benzodiazepines Scrn (Not Detect) Urine Cocaine Screen (Not Detect) U Marijuana (THC) Screen (Not Detect) Ethyl Alcohol mg/dL External Record Review External record reviewed: Inpatient record Previous inpatient records reviewed Chronic Conditions Patient?s care impacted by: Diabetes and Hypertension Social Determinants Patient?s care significantly limited by Social Determinants of Health including: Alcoholism and drug addiction in family Discharge Plan Discharge Clinical Impression: Bipolar disorder Patient Disposition: Still a Patient Prescriptions: No Action levetiracetam [Keppra] 750 mg Tablet 750 mg PO BID insulin glargine [Lantus U-100 Insulin] 100 unit/mL solution 26 unit subcut DAILY metformin 750 mg tablet extended release 24 hr 750 mg PO BEDTIME trazodone 50 mg Tablet 50 mg PO BEDTIME olanzapine 10 mg Tablet 10 mg PO BID Qty: 60 0RF hydralazine 25 mg Tablet 25 mg PO QID Qty: 120 0RF Protocol: Hold for SBP< HOLD for SBP < : 90 doxycycline monohydrate 100 mg Capsule 100 mg PO BID Qty: 8 0RF ferrous sulfate 324 mg (65 mg iron) Tablet,Delayed Release (Dr/Ec) 324 mg PO DAILY Qty: 30 0RF Interventions: [place]-Suicide Risk Severity Scale Last Done: 03/24/23 15:49
[2023-03-24 18:15] LABS: Glucose, Whole Blood 168 mg/dL (60-115)
--- NOTE | 2023-03-24 18:37 | PC.NURSE ---
pt with JUANA 4th toe amputations., wrapped with keflax wrap. R with some cleaer/white drainage, left wound clean. skin with stitched intact.
[2023-03-24 19:37] LABS: MANUAL DIFF FLAG NO
[2023-03-24 19:38] LABS: Basophils Percent Auto 0.2 % (0-2); Eosinophils Absolute Auto 0.2 X10*3/uL (0.0-0.4); Eosinophils Percent Auto 1.5 % (0-4); Hematocrit 32.3 % (37.0-47.0); Hemoglobin 10.6 g/dl (12.0-16.0); Imm Gran Abs Auto 0.04 X10*3/uL (0.00-0.03); Imm Gran Pct Auto 0.4 % (0.0-0.4); Lymphocytes Percent Auto 20.4 % (20-40); Mean Corpuscular HGB Conc 32.8 g/dl (31.0-35.0); Mean Corpuscular Hemoglobin 28.8 pg (27.0-33.0); Mean Corpuscular Volume 87.8 fL (80.0-98.0); Mean Platelet Volume 8.8 fL (9.4-12.3); Monocytes Absolute Auto 0.6 X10*3/uL (0.1-1.2); Monocytes Percent Auto 5.8 % (2-11); Neutrophils Absolute Auto 7.1 x10*3/uL (2.0-8.3); Neutrophils Percent Auto 71.7 % (45-73); Platelet Count 535 X10*3/uL (160-400); Red Blood Count 3.68 X10*6/uL (4.20-5.50); Red Cell Distribution Width 14.2 % (11.0-16.0)
[2023-03-24] MEDS: OLANZapine 10 MG TABLET PO ×2 (19:48→23:04)
[2023-03-24 19:51] LABS: Alanine Aminotransferase 14 U/L (0-31); Albumin Level 3.5 g/dL (3.5-5.0); Alkaline Phosphatase 119 U/L (39-117); Anion Gap 10 (12-20); Aspartate Amino Transferase 12 U/L (5-31); Bilirubin Total 0.2 mg/dL (0.0-1.0); Blood Urea Nitrogen 11 mg/dL (9-16); Calcium 10.4 mg/dL (8.4-10.2); Carbon Dioxide 27 mmol/L (22-29); Chloride 105 mmol/L (96-108); Creatinine Clr Calc Pharmacy 67.3; Estimated Glomerular Filt Rate > 60; Glucose Random 248 mg/dL (60-115); Sodium 138 mmol/L (135-145); Total Protein 6.3 g/dL (6.5-8.0)
[2023-03-24 19:53] LABS: Ethanol < 10 mg/dL
[2023-03-24 19:59] LABS: Appearance Urine Clear; Color Urine Yellow; Glucose Urine UA Negative (Negative); Leukocyte Esterase Urine Negative (Negative); Nitrite Urine Negative (Negative); Urine Blood Negative (Negative); Urine Ketones Negative (Negative); Urine Protein Trace mg/dL (Neg-Trace)
[2023-03-24 20:08] LABS: Glucose, Whole Blood 247 mg/dL (60-115)
[2023-03-24 20:16] LABS: Amphetamine Screen Urine Not Detected (Not Detect); Barbiturates, Urine Not Detected (Not Detect); Benzodiazepines Screen Urine Not Detected (Not Detect); Cannabinoid Screen Urine Not Detected (Not Detect); Cocaine Screen Urine Not Detected (Not Detect); Fentanyl, urine Not Detected (Not Detect); Opiate Screen Urine Not Detected (Not Detect); Phencyclidine Screen Urine Not Detected (Not Detect)
[2023-03-24] MEDS: diphenhydrAMINE HCL 25 MG CAPSULE 50 MG PO (23:04)
[2023-03-24] MEDS: LORazepam 1 MG TABLET 2 MG PO (23:04)
[2023-03-24 23:45] LABS: COVID-19 Test Negative (Negative); IDNOW Serial# 08D9AD1C
--- NOTE | 2023-03-25 06:12 | PC.NURSE ---
Patient slept intermittently, no distress observed/reported, behavior non concerning but unpredictable due to behavioral disorganization secondary non medication compliant, med rec completed/pending pharmacy verification and providers approval, Olanzapine 10 mg @ 1947, Olanzapine 10 mg @ 2303 with Benadryl 50 mg & Ativan 2 mg administered with + effect, patient was assessed by care team, disposition is section 12 inpatient bed search, POC 247 at 2000, elimination intact, VSS, will continue to monitor.
--- NOTE | 2023-03-25 08:20 | PHA.MEDREC ---
Pharmacy Consult ? Medication Reconciliation Pharmacy has reviewed the medication reconciliation done by RN. Called Jennifer to confirm. Discontinued doxycycline as Jennifer said patient picked it up 03/13 for a 4 day supply.
--- NOTE | 2023-03-25 10:22 | ECG_ITS ---
Test Reason : CHECK QT INTERVAL Blood Pressure : / mmHG Vent. Rate : 104 BPM Atrial Rate : 104 BPM P-R Int : 144 ms QRS Dur : 080 ms QT Int : 338 ms P-R-T Axes : 066 052 085 degrees QTc Int : 444 ms Sinus tachycardia Possible Left atrial enlargement Left ventricular hypertrophy ( Sokolow-Alcazar , [place] product ) Cannot rule out Septal infarct (cited on or before 21-AUG-2021) Abnormal ECG When compared with ECG of 09-MAR-2022 20:00, No significant change was found Referred By: Annie May Electronically Signed By:JOSE RIZVI
--- NOTE | 2023-03-25 10:37 | PC.NURSE ---
Raiza requested to have her dressings changed to her feet. Per notes it appears Raiza had a bilateral amputation to the fourth toes 5 weeks ago. Gauze bandages were wrapped around her feet with small gauze rolled between the 3rd and 5th toe. Clean and dry dressings were applied in the same manner. Bilateral post amputation wound intact. There is no redness and no discharge, patient's sutures were in place.
[2023-03-25 12:35] VITALS: BP 207/106; PULSE 109; RESP 20; TEMP 36.6; O2SAT 97
[2023-03-25] MEDS: levETIRAcetam 250 MG TABLET 750 MG PO ×2 (12:38→21:28)
[2023-03-25] MEDS: hydrALAZINE HCl 25 MG TABLET PO ×3 (12:39→21:28)
[2023-03-25] MEDS: OLANZapine 10 MG TABLET PO ×2 (12:39→21:28)
[2023-03-25] MEDS: LORazepam 1 MG TABLET PO ×2 (12:39→21:28)
[2023-03-25 12:42] LABS: Glucose, Whole Blood 179 mg/dL (60-115)
[2023-03-25 14:49] VITALS: BP 174/86; PULSE 109; RESP 20; O2SAT 96
[2023-03-25 16:34] VITALS: BMI 19.7
[2023-03-25 16:45] VITALS: BP 158/79; PULSE 115; RESP 20; TEMP 37.2; O2SAT 98
--- NOTE | 2023-03-25 17:43 | PC.ADMIT ---
Nursing admission note: 57 year old female. DX: Unspecified BiPolar disorder. Referred for treatment by CARE team. Admitted on section 12b, patient refused to sign Conditional voluntary stating she does not want to be here. Patient presented to ED via ambulance and section 12 by [place] [employer] secondary to erratic behavior including being unresponsive, then throwing self to ground, hitting, biting and choking herself. Patient presented in hospital attire, labile mood, uncooperative with admission process. Low frustration tolerance, agitated, irritable. Focused on when she will be discharged stating she is annoyed and can't stay here . States people wanted me here, I don't know, said I am a danger to myself or somebody . You don't understand the importance, all my stuff is going to be taken out . I have been lied to . Marginally cooperative, unable to fully assess mental status at this time. Speech is loud fluctuating in tone, frequently yelling about being discharged. Patient frequently throwing back against chair. Patient information taken from crisis evaluation. Medical history includes IDDM, BiLateral toe amputation five weeks ago. Dressing changed in ED, sutures reported to be in tack, no sx of infection. Allergy to Haldol, [place] and latex. TOX screen negative. COVID negative. Patient presents with cough. Per crisis eval patient has been off some medications. Has not been able to sleep.Skin check completed with ULISES and AWAIS RN. Patient oriented to unit, placed on 5 minute safety checks. See crisis evaluation for further details.
[2023-03-25 20:10] VITALS: BP 148/80; PULSE 110; TEMP 36.6; O2SAT 96
[2023-03-25] MEDS: Bacitracin Oint 14 GM TUBE 1 APPL TOPICAL (20:40)
[2023-03-25 21:07] LABS: Glucose, Whole Blood 403 mg/dL (60-115)
[2023-03-25] MEDS: Insulin Lispro 100 UNIT/ML 3 ML VIAL SUBCUT (21:26)
[2023-03-25] MEDS: metFORMIN HCl ER 750 MG TAB.ER.24H PO (21:27)
[2023-03-25] MEDS: traZODone HCL 50 MG TABLET PO (21:27)
--- NOTE | 2023-03-25 22:47 | PC.NURSE ---
Raiza blood sugar was 403 tonight. She is observed eating ice cream and other snacks, MD Dallas updated, no new orders. Lispro given per RISS.
[2023-03-26 07:00] VITALS: BMI 19.7
[2023-03-26 08:37] LABS: Glucose, Whole Blood 334 mg/dL (60-115)
[2023-03-26 08:45] VITALS: BP 192/94; PULSE 98; RESP 16; TEMP 36.2; O2SAT 96
[2023-03-26] MEDS: Insulin Lispro 100 UNIT/ML 3 ML VIAL SUBCUT ×4 (08:50→21:11)
[2023-03-26] MEDS: Insulin Glargine,Hum.rec.anlog 100 UNIT/ML 10 ML VIAL 20 UNIT SUBCUT (08:50)
[2023-03-26] MEDS: hydrALAZINE HCl 25 MG TABLET PO ×3 (08:51→16:29)
[2023-03-26] MEDS: Ferrous Sulfate 324 MG TABLET.DR PO (08:51)
[2023-03-26] MEDS: levETIRAcetam 250 MG TABLET 750 MG PO ×2 (08:51→21:10)
[2023-03-26] MEDS: OLANZapine 10 MG TABLET PO ×2 (08:51→21:13)
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
[2023-03-26 09:49] LABS: Estimated Average Glucose 186 mg/dL; Hemoglobin A1c % 8.1 % (<6.0)
[2023-03-26 09:57] LABS: Alanine Aminotransferase 35 U/L (0-31); Albumin Level 4.1 g/dL (3.5-5.0); Alkaline Phosphatase 142 U/L (39-117); Anion Gap 15 (12-20); Aspartate Amino Transferase 28 U/L (5-31); Bilirubin Total 0.2 mg/dL (0.0-1.0); Blood Urea Nitrogen 9 mg/dL (9-16); Calcium 10.4 mg/dL (8.4-10.2); Carbon Dioxide 26 mmol/L (22-29); Chloride 96 mmol/L (96-108); Cholesterol 156 mg/dL (<200); Creatinine Clr Calc Pharmacy 71.1; Estimated Glomerular Filt Rate > 60; Glucose Fasting 327 mg/dL (60-99); HDL Cholesterol 71 mg/dL (>40); LDL Cholesterol Calculated 64 mg/dL (<100); Potassium 4.8 mmol/L (3.3-5.1); Sodium 132 mmol/L (135-145); Total Protein 7.2 g/dL (6.5-8.0); Triglycerides 108 mg/dL (<150)
[2023-03-26 10:14] LABS: Free T4 (Free Thyroxine) 1.21 ng/dL (0.71-1.85); Thyroid Stimulating Hormone 1.46 uIU/mL (0.32-4.0)
[2023-03-26 10:25] LABS: Folate 7.8 ng/mL (> or = 4.0); Vitamin B12 455 pg/mL (200-900)
[2023-03-26] MEDS: Bacitracin Oint 14 GM TUBE 1 APPL TOPICAL ×2 (11:00→21:19)
--- NOTE | 2023-03-26 12:25 | PC.NURSE ---
Dressings changed to bilateral feet. Right dressing damp with alanis exudate and/ or bacitracin with foul smell and swelling noted. .5 cm x 1 cm open area noted in the center with 2 intact stitches on either side of open area.the area between wound and right small toe is macerated. Pt reports she has more pain in this side 5/10. Left dressing is clean and dry when removed with no swelling or open area noted. Bilateral wounds gently cleansed with normal saline, dried, bacitracin and dry sterile dressings applied. Patient tolerated procedure well. She verbalized understanding of signs and symptoms of infection
[2023-03-26 12:42] LABS: Glucose, Whole Blood 212 mg/dL (60-115)
[2023-03-26 15:00] VITALS: BP 198/98; PULSE 112; O2SAT 99
[2023-03-26 16:26] VITALS: BP 213/100; PULSE 113; O2SAT 98
[2023-03-26] MEDS: amLODIPine Besylate 5 MG TABLET PO (16:29)
[2023-03-26 17:42] LABS: Glucose, Whole Blood 261 mg/dL (60-115)
[2023-03-26 18:03] VITALS: BP 186/87; PULSE 108; O2SAT 96
--- NOTE | 2023-03-26 18:10 | PC.NURSE ---
Elevated blood pressures and HRs of concern reported to Kade GARCIA throughout the day: 0845 192/94 98 1500 198/98 112 1630 213/100 113 Norvasc 5mg given/ started 1645 per provider order 1800 186/87 108 Pt has been assymptomatic this shift
[2023-03-26 19:08] VITALS: BP 209/95; PULSE 119; O2SAT 96
--- NOTE | 2023-03-26 19:11 | PC.NURSE ---
Ward sent to [facility] at this time due to VS = 209/, 119. I rechecked because she is having difficulty expressing herself right now - walking fine, equal grasps, keeps approaching me, repeating I need, I need, I need but not able to verbalize her needs/ complete her sentences.
--- NOTE | 2023-03-26 19:32 | PM.EVENT ---
Event Note Date of Service: 03/26/23 Event Note: Medical consult for patient with hyponatremia, hyperglycemia, and hypertension. Patient's latest sodium 132. Patient with chronically low sodium since at least October of last year. Most likely pseudohyponatremia in the setting of hyperglycemia. Patient asymptomatic. No treatment or close monitoring necessary. Patient's blood glucose consistently remains elevated. Patient on Trulicity in the community, not on insulin/ currently receiving 20 units of Lantus daily, metformin 750 mg p.o. at bedtime, and on sliding scale. Patient restarted insulin 2 days prior when admitted to Psychiatry. Will monitor sugars tomorrow morning before making any additional insulin changes. Patient remains hypertensive with readings as high as 213/100 earlier today. Currently on hydralazine 25 mg p.o. q.i.d. will change hydralazine to 50 mg p.o. t.i.d.. If BP remains elevated will add losartan 50 mg q.d. Will continue to follow for now. Time Spent With Patient Time: Total time managing care of this patient today ____ minutes.
[2023-03-26 21:01] LABS: Glucose, Whole Blood 264 mg/dL (60-115)
[2023-03-26] MEDS: LORazepam 1 MG TABLET PO (21:13)
[2023-03-26] MEDS: hydrALAZINE HCl 50 MG TABLET PO (21:13)
[2023-03-26] MEDS: metFORMIN HCl ER 750 MG TAB.ER.24H PO (21:13)
[2023-03-26] MEDS: traZODone HCL 50 MG TABLET PO ×2 (21:13→23:11)
--- NOTE | 2023-03-27 07:57 | PM.CNGS ---
History of Present Illness Consult details Consult date: 03/27/23 Requesting physician: José Miguel [place] Narrative: 57 year ole female patient with a recent history of bilateral 4th toe gangrene and osteo, s/p amputation. Surgical consult requested for wound care and suture removal. Review of Systems Review of Systems: Yes Unobtainable due to mental condition PMFSH Past Medical History Medical History Bipolar 1 disorder Diabetes Occipital cerebral infarction Osteomyelitis Seizure disorder Family History Family History Father Diabetes Mother Stroke Social History Social History Household Members: None Housing: Homeless Do you presently have visiting nurse or other home services: No Patient Tobacco Use Status: Current everyday Tobacco user Tobacco use type: Cigarette Cigarette Packs Per Day: 2 Cigarettes Per Day: 40.0 Smoked in Last 30 Days: Yes Patient Interested in Nicotine Replacement: Yes Patient Given Instructions on How to Stop Smoking: No Second Hand Smoke Exposure: No Use of substances other than those prescribed or required for medical reasons: Yes Substance Use Type: Marijuana Substance Use Frequency: Occasionally Currently Displaying Signs/Symptoms of Drug Intoxication Withdrawal: No Any prior treatment program specific to substance use: No Have you been hit, kicked, punched, or otherwise hurt by someone within the past year? If so, by whom?: No Do you feel safe in your current relationship?: No Is there a partner from a previous relationship who is making you feel unsafe now?: No Are you made to feel afraid or neglected: No Advance Directives: Yes Advance Directives on File: Yes Advance Directives Date on File: 09/12/21 Healthcare Proxy: No Guardian: No Do you have thoughts of harming others: None Do you have a plan to hurt others: No Plan Recently lost weight without trying: No Nutrition Risks: Diabetes new onset/Uncontrolled Patient : No : No Poor oral hygiene: No service: No Sexual orientation: Decline to Answer Meds Allergies Allergy/AdvReac Type Severity Reaction Status Date / Time haloperidol Allergy Severe Nausea and Verified 03/17/23 14:24 Vomiting lithium Allergy Severe Nausea and Verified 03/17/23 14:24 Vomiting latex Allergy Mild Itching Verified 03/17/23 14:24 Active Medications: Current Medications Acetaminophen (Acetaminophen 325 Mg Tablet) 650 mg PO Q6H PRN PRN Reason: Headache/Pain Mild Scale (1-3) Al Hydroxide/Mg Hydroxide (Magnesium Hydrox/Alum Hydrox 30 Ml Oral.Susp) 30 ml PO Q6H PRN PRN Reason: Heartburn/Nausea Bacitracin (Bacitracin Oint 14 Gm Tube) 1 appl TOPICAL BID PRN PRN Reason: healing wound Stop: 04/01/23 19:21 Bacitracin (Bacitracin Oint 14 Gm Tube) 1 appl TOPICAL BID [facility]; Protocol Last Admin: 03/26/23 21:19 Dose: 1 appl Ferrous Sulfate (Ferrous Sulfate 324 Mg Tablet.Dr) 324 mg PO DAILY [facility] Last Admin: 03/26/23 08:51 Dose: 324 mg Hydralazine HCl (Hydralazine Hcl 50 Mg Tablet) 50 mg PO TID [facility]; Protocol Last Admin: 03/26/23 21:13 Dose: 50 mg Hydroxyzine HCl (Hydroxyzine Hcl 25 Mg Tablet) 25 mg PO Q6H PRN PRN Reason: Anxiety Insulin Glargine (Insulin Glargine,Hum.Rec.Anlog 100 Unit/Ml 10 Ml Vial) 20 unit SUBCUT DAILY [facility] Last Admin: 03/26/23 08:50 Dose: 20 unit Insulin Human Lispro (Insulin Lispro 100 Unit/Ml 3 Ml Vial) 0 unit SUBCUT QIDACHS [facility]; Protocol Last Admin: 03/26/23 21:11 Dose: 6 unit Levetiracetam (Levetiracetam 250 Mg Tablet) 750 mg PO BID [facility] Last Admin: 03/26/23 21:10 Dose: 750 mg Lorazepam (Lorazepam 1 Mg Tablet) 1 mg PO BEDTIME [facility] Last Admin: 03/26/23 21:13 Dose: 1 mg Magnesium Hydroxide (Milk Of Magnesia 30 Ml Oral.Susp) 30 ml PO DAILY PRN PRN Reason: Constipation Metformin HCl (Metformin Hcl Er 750 Mg Tab.Er.24h) 750 mg PO BEDTIME [facility] Last Admin: 03/26/23 21:13 Dose: 750 mg Nicotine Polacrilex (Nicotine Polacrilex 2 Mg Gum) 4 mg BUCCAL Q2H PRN PRN Reason: Nicotine Cravings Olanzapine (Olanzapine 10 Mg Tablet) 10 mg PO BID [facility] Last Admin: 03/26/23 21:13 Dose: 10 mg Trazodone HCl (Trazodone Hcl 50 Mg Tablet) 50 mg PO BEDTIME [facility] Last Admin: 03/26/23 21:13 Dose: 50 mg Trazodone HCl (Trazodone Hcl 50 Mg Tablet) 50 mg PO BEDTIME MRX1 PRN PRN Reason: Insomnia Last Admin: 03/26/23 23:11 Dose: 50 mg Home Medications Medication Instructions Recorded Confirmed Last Taken Type insulin glargine 100 unit/mL 20 unit subcut DAILY 03/04/23 03/25/23 03/04/23 History subcutaneous solution (Lantus U-100 Insulin) levetiracetam 750 mg tablet 750 mg PO BID 03/04/23 03/24/23 03/04/23 History (Keppra) metformin 750 mg tablet,extended 750 mg PO BEDTIME 03/04/23 03/24/23 03/04/23 History release 24 hr trazodone 50 mg tablet 50 mg PO BEDTIME 03/05/23 03/24/23 Unknown History insulin lispro 100 unit/mL 0 sliding scale dose subcut TID 03/25/23 03/25/23 Unknown History subcutaneous solution Physical Exam Vital Signs: Vital Signs: Last Vital Signs Temp 97.2 F 03/26/23 08:45 Pulse 119 H 03/26/23 19:08 Resp 16 03/26/23 08:45 BP 209/95 H 03/26/23 19:08 Pulse Ox 96 03/26/23 19:08 O2 Del Method Room Air 03/26/23 19:08 BMI result Body Mass Index 19.7 Const: General: no acute distress Nutritional Appearance: thin Resp: Effort & Inspection: normal respiratory effort Extrem: Other: Dressings changed to bilateral feet; right foot with sutures pulling through; all sutures removed and clean dressings applied. Left foot with well healed wounds. All sutures removed and protective dressing applied. Results Labs 03/24/23 19:23 03/26/23 09:16 Labs: Abnormal lab results 03/26/23 03/26/23 03/26/23 Range/Units 08:30 09:16 09:16 Sodium 132 L (135-145) mmol/L POC Glucose 334 H (60-115) mg/dL Fasting Glucose 327 H (60-99) mg/dL Hemoglobin A1c % 8.1 H (<6.0) % Calcium 10.4 H (8.4-10.2) mg/dL ALT 35 H (0-31) U/L Alkaline Phosphatase 142 H (39-117) U/L 03/26/23 03/26/23 03/26/23 Range/Units 12:37 17:38 20:56 Sodium (135-145) mmol/L POC Glucose 212 H 261 H 264 H (60-115) mg/dL Fasting Glucose (60-99) mg/dL Hemoglobin A1c % (<6.0) % Calcium (8.4-10.2) mg/dL ALT (0-31) U/L Alkaline Phosphatase (39-117) U/L BMP 03/26/23 09:16 Sodium 132 L Potassium 4.8 Chloride 96 Carbon Dioxide 26 BUN 9 Creatinine 0.71 Calcium 10.4 H Liver Function 03/26/23 Range/Units 09:16 Total Bilirubin 0.2 (0.0-1.0) mg/dL AST 28 (5-31) U/L ALT 35 H (0-31) U/L Alkaline Phosphatase 142 H (39-117) U/L Albumin 4.1 (3.5-5.0) g/dL Urine 03/24/23 Range/Units 19:47 Urine Color Yellow Urine Appearance Clear Urine pH 6.0 (5.0-9.0) Ur Specific [place] 1.010 (1.005-1.025) Urine Protein Trace (Neg-Trace) mg/dL Urine Glucose (UA) Negative (Negative) mg/dL All other labs normal. Assessment and Plan (1) Osteomyelitis of fourth toe of left foot: Status: Resolved (2) Osteomyelitis of fourth toe of right foot: Status: Resolved Plan Wounds are healing appropriately; sutures removed and clean dressings applied. Continue daily dressing changes with 3x3 or 2x2 gauze at base of 4th toes followed by 3 inch sarah wrap. She can follow up in my office in one month. Time Spent With Patient Time: Total time managing care of this patient today ____ minutes. Procedures Date of Service Date of Service: 03/27/23
[2023-03-27 08:57] LABS: Glucose, Whole Blood 229 mg/dL (60-115)
[2023-03-27 09:03] VITALS: BP 170/84; PULSE 103; RESP 18; TEMP 36.6; O2SAT 94
[2023-03-27] MEDS: Bacitracin Oint 14 GM TUBE 1 APPL TOPICAL (09:18)
[2023-03-27] MEDS: Ferrous Sulfate 324 MG TABLET.DR PO (09:18)
[2023-03-27] MEDS: hydrALAZINE HCl 50 MG TABLET PO ×3 (09:18→22:06)
[2023-03-27] MEDS: levETIRAcetam 250 MG TABLET 750 MG PO ×2 (09:18→22:05)
[2023-03-27] MEDS: OLANZapine 10 MG TABLET PO ×2 (09:18→22:06)
[2023-03-27] MEDS: Insulin Glargine,Hum.rec.anlog 100 UNIT/ML 10 ML VIAL 20 UNIT SUBCUT (09:19)
[2023-03-27] MEDS: Insulin Lispro 100 UNIT/ML 3 ML VIAL SUBCUT ×4 (09:19→22:09)
--- NOTE | 2023-03-27 09:55 | P.PNPSI_ITS ---
Subjective Subjective Date of Service: 03/27/23 Reason For Visit: Disorganized and dangerous behavior Subjective Notes: Section 12B Interim History: Reviewed in team and . Patient reports feeling alright today. Patient presents anxious and irritable today. She states she does not want to be here . T/W explained she would benefit from being inpatient d/t stabilizing her medical issues. She became upset and started mocking T/W, and holding her breath; yelled out I'M DONE! then walked down to her room. When in her room staff witnessed pt hitting her head on pillow while in bed. Patient willingly took Zyprexa 5mg PO and Ativan 1mg PO to help with increased agitation and anxiety. Medication Compliance: Yes Side effects from medications: No Attending Groups: Intermittent Review of Systems Review of Systems No fever no chills no chest pain or shortness of breath no diaphoresis No nausea no vomiting Constitutional: Reports as per HPI Eyes: Reports as per HPI Reports as per HPI Cardiovascular: Reports as per HPI Respiratory: Reports as per HPI Gastrointestinal: Reports as per HPI Genitourinary: Reports as per HPI Musculoskeletal: Reports as per HPI Skin/Breast: Reports as per HPI Reports as per HPI Psychiatric: Reports as per HPI Endocrine: Reports as per HPI Hematologic/Lymphatic: Reports as per HPI Allergic/Immunologic: Reports as per HPI Mental Status Exam Mental Status Exam Narrative: Pt is alert and oriented; behavior is anxious and irritable; dressed in casual attire; mood is described as fine ; eye contact appropriate; Speech is normal rate, volume and prosody and not pressured; no psychomotor agitation/retardation present; thought process is organized and goal directed; Thought content is on discharge; otherwise pertinent to relevant topics and without any delusional content, paranoid ideations or grandiosity; denies SI/HI. There is no evidence of perceptual disturbance. Patients insight and judgment are poor. Diagnostics Vital Signs (24Hr): Vital Signs - 24 hr 03/26/23 15:00 03/26/23 16:26 03/26/23 18:03 Temperature Pulse Rate 112 H 113 H 108 H Respiratory Rate Blood Pressure 198/98 H 213/100 H 186/87 H Pulse Oximetry 99 98 96 Oxygen Delivery Method Room Air Room Air Room Air 03/26/23 19:08 03/27/23 09:03 Temperature 97.9 F Pulse Rate 119 H 103 H Respiratory Rate 18 Blood Pressure 209/95 H 170/84 H Pulse Oximetry 96 94 Oxygen Delivery Method Room Air Room Air BMI result Body Mass Index 19.7 Labs 03/24/23 19:23 03/26/23 09:16 Labs: Laboratory Results - last 48 hr 03/25/23 03/25/23 03/26/23 12:29 21:02 08:30 Sodium Potassium Chloride Carbon Dioxide Anion Gap BUN Creatinine Estim Creat Clear Calc Estimated GFR POC Glucose 179 H 403 H* 334 H Fasting Glucose Estimat Average Glucose Hemoglobin A1c % Calcium Total Bilirubin AST ALT Alkaline Phosphatase Total Protein Albumin Triglycerides Cholesterol LDL Cholesterol, Calc HDL Cholesterol Vitamin B12 Folate TSH Free T4 03/26/23 03/26/23 03/26/23 09:16 09:16 09:16 Sodium 132 L Potassium 4.8 Chloride 96 Carbon Dioxide 26 Anion Gap 15 BUN 9 Creatinine 0.71 Estim Creat Clear Calc 71.1 Estimated GFR > 60 POC Glucose Fasting Glucose 327 H Estimat Average Glucose 186 Hemoglobin A1c % 8.1 H Calcium 10.4 H Total Bilirubin 0.2 AST 28 ALT 35 H Alkaline Phosphatase 142 H Total Protein 7.2 Albumin 4.1 Triglycerides 108 Cholesterol 156 LDL Cholesterol, Calc 64 HDL Cholesterol 71 Vitamin B12 455 Folate 7.8 TSH 1.46 Free T4 1.21 03/26/23 03/26/23 03/26/23 12:37 17:38 20:56 Sodium Potassium Chloride Carbon Dioxide Anion Gap BUN Creatinine Estim Creat Clear Calc Estimated GFR POC Glucose 212 H 261 H 264 H Fasting Glucose Estimat Average Glucose Hemoglobin A1c % Calcium Total Bilirubin AST ALT Alkaline Phosphatase Total Protein Albumin Triglycerides Cholesterol LDL Cholesterol, Calc HDL Cholesterol Vitamin B12 Folate TSH Free T4 03/27/23 08:53 Sodium Potassium Chloride Carbon Dioxide Anion Gap BUN Creatinine Estim Creat Clear Calc Estimated GFR POC Glucose 229 H Fasting Glucose Estimat Average Glucose Hemoglobin A1c % Calcium Total Bilirubin AST ALT Alkaline Phosphatase Total Protein Albumin Triglycerides Cholesterol LDL Cholesterol, Calc HDL Cholesterol Vitamin B12 Folate TSH Free T4 Medications Medications Current Medications Acetaminophen (Acetaminophen 325 Mg Tablet) 650 mg PO Q6H PRN PRN Reason: Headache/Pain Mild Scale (1-3) Al Hydroxide/Mg Hydroxide (Magnesium Hydrox/Alum Hydrox 30 Ml Oral.Susp) 30 ml PO Q6H PRN PRN Reason: Heartburn/Nausea Bacitracin (Bacitracin Oint 14 Gm Tube) 1 appl TOPICAL BID PRN PRN Reason: healing wound Stop: 04/01/23 19:21 Bacitracin (Bacitracin Oint 14 Gm Tube) 1 appl TOPICAL BID [facility]; Protocol Last Admin: 03/27/23 09:18 Dose: 1 appl Ferrous Sulfate (Ferrous Sulfate 324 Mg Tablet.) 324 mg PO DAILY [facility] Last Admin: 03/27/23 09:18 Dose: 324 mg Hydralazine HCl (Hydralazine Hcl 50 Mg Tablet) 50 mg PO TID [facility]; Protocol Last Admin: 03/27/23 09:18 Dose: 50 mg Hydroxyzine HCl (Hydroxyzine Hcl 25 Mg Tablet) 25 mg PO Q6H PRN PRN Reason: Anxiety Insulin Glargine (Insulin Glargine,Hum.Rec.Anlog 100 Unit/Ml 10 Ml Vial) 20 unit SUBCUT DAILY [facility] Last Admin: 03/27/23 09:19 Dose: 20 unit Insulin Human Lispro (Insulin Lispro 100 Unit/Ml 3 Ml Vial) 0 unit SUBCUT QIDACHS [facility]; Protocol Last Admin: 03/27/23 09:19 Dose: 4 unit Levetiracetam (Levetiracetam 250 Mg Tablet) 750 mg PO BID [facility] Last Admin: 03/27/23 09:18 Dose: 750 mg Lorazepam (Lorazepam 1 Mg Tablet) 1 mg PO BEDTIME [facility] Last Admin: 03/26/23 21:13 Dose: 1 mg Magnesium Hydroxide (Milk Of Magnesia 30 Ml Oral.Susp) 30 ml PO DAILY PRN PRN Reason: Constipation Metformin HCl (Metformin Hcl Er 750 Mg Tab.Er.24h) 750 mg PO BEDTIME [facility] Last Admin: 03/26/23 21:13 Dose: 750 mg Nicotine Polacrilex (Nicotine Polacrilex 2 Mg Gum) 4 mg BUCCAL Q2H PRN PRN Reason: Nicotine Cravings Olanzapine (Olanzapine 10 Mg Tablet) 10 mg PO BID [facility] Last Admin: 03/27/23 09:18 Dose: 10 mg Trazodone HCl (Trazodone Hcl 50 Mg Tablet) 50 mg PO BEDTIME [facility] Last Admin: 03/26/23 21:13 Dose: 50 mg Trazodone HCl (Trazodone Hcl 50 Mg Tablet) 50 mg PO BEDTIME MRX1 PRN PRN Reason: Insomnia Last Admin: 03/26/23 23:11 Dose: 50 mg Allergies Allergies Allergy/AdvReac Type Severity Reaction Status Date / Time haloperidol Allergy Severe Nausea and Verified 03/17/23 14:24 Vomiting lithium Allergy Severe Nausea and Verified 03/17/23 14:24 Vomiting latex Allergy Mild Itching Verified 03/17/23 14:24 Assessment & Plan Assessment & Plan (1) Bipolar disorder: Status: Acute Code(s): F31.9 - Bipolar disorder, unspecified Plan Patient is a 57 year old woman with hx of bipolar d/o who presented to ER via ambulance and section 12 from [email or web address] secondary to erratic behavior, initially being unresponsive then throwing herself to the group, hitting, biting and choking herself. Plan: 3 day 15 minute safety checks Continue home medications Hospitalist consult for uncontrolled diabetes and low sodium Surgery consult for directions of wound care of toes 03/27: Patient was seen by surgical today for her toes. Surgical provider stated, Wounds are healing appropriately; sutures removed and clean dressings applied. Continue daily dressing changes with 3x3 or 2x2 gauze at base of 4th toes followed by 3 inch sarah wrap. She can follow up in my office in one month. She is also being followed by hospitalist for hyponatremia, hyperglycemia, and hypertension. Hospitalist reports they will change hydralazine to 50 mg p.o. t.i.d.. If BP remains elevated will add losartan 50 mg q.d. They will continue to follow for now. Patient educated on: diagnosis, medication risk/benefits, therapeutic strategies and medical condition Informed Consent: understands and further education needed Reason for continued inpatient stay Substantial Risk for: med/psych decompensation Time Spent With Patient Time: Total time managing care of this patient today _30___ minutes.
[2023-03-27] MEDS: LORazepam 1 MG TABLET PO ×2 (11:18→22:06)
[2023-03-27] MEDS: OLANZapine 5 MG TABLET PO (11:18)
[2023-03-27 12:28] LABS: Glucose, Whole Blood 204 mg/dL (60-115)
[2023-03-27] MEDS: Insulin Glargine,Hum.rec.anlog 100 UNIT/ML 10 ML VIAL SUBCUT (13:07)
[2023-03-27 15:47] VITALS: BP 174/72; PULSE 102
[2023-03-27 17:51] LABS: Glucose, Whole Blood 388 mg/dL (60-115)
[2023-03-27 21:50] VITALS: BP 179/85; PULSE 106; RESP 18; O2SAT 106
[2023-03-27 21:59] LABS: Glucose, Whole Blood 372 mg/dL (60-115)
[2023-03-27] MEDS: metFORMIN HCl ER 750 MG TAB.ER.24H PO (22:05)
[2023-03-27] MEDS: hydrOXYzine HCL 25 MG TABLET PO (22:06)
[2023-03-27] MEDS: traZODone HCL 50 MG TABLET PO ×2 (22:06)
[2023-03-28] MEDS: traZODone HCL 50 MG TABLET PO ×3 (02:33→20:40)
[2023-03-28 08:49] LABS: Glucose, Whole Blood 274 mg/dL (60-115)
[2023-03-28 09:00] VITALS: BP 145/75; PULSE 109; RESP 16; TEMP 36.7; O2SAT 97
[2023-03-28] MEDS: Insulin Glargine,Hum.rec.anlog 100 UNIT/ML 10 ML VIAL 22 UNIT SUBCUT (09:15)
[2023-03-28] MEDS: Insulin Lispro 100 UNIT/ML 3 ML VIAL SUBCUT ×4 (09:15→20:41)
[2023-03-28] MEDS: Ferrous Sulfate 324 MG TABLET.DR PO (09:16)
[2023-03-28] MEDS: OLANZapine 10 MG TABLET PO ×2 (09:16→20:29)
[2023-03-28] MEDS: hydrALAZINE HCl 50 MG TABLET PO ×3 (09:16→20:29)
[2023-03-28] MEDS: levETIRAcetam 250 MG TABLET 750 MG PO ×2 (09:16→20:29)
[2023-03-28] MEDS: Losartan Potassium 50 MG TABLET PO (09:16)
--- NOTE | 2023-03-28 11:06 | HO.PSYCHPN ---
Subjective Subjective Date of Service: 03/28/23 Reason For Visit: Disorganized and dangerous behavior Subjective Notes: Section 12B Interim History: Patient was seen and discussed in rounds today. Records and plans were reviewed. She continues to be irritable and loud at times. She is very focused about being discharged and is not happy about being here. Surgical consult will be requested for her wound care. Taking medications intermittently. No changes were made Review of Systems Review of Systems Yes Unobtainable due to mental status Diagnostics Vital Signs (24Hr): Vital Signs - 24 hr 03/27/23 15:47 03/27/23 21:50 Pulse Rate 102 H 106 H Respiratory Rate 18 Blood Pressure 174/72 H 179/85 H Pulse Oximetry 106 H Oxygen Delivery Method Room Air BMI result Body Mass Index 19.7 Labs 03/24/23 19:23 03/26/23 09:16 Labs: Laboratory Results - last 48 hr 03/26/23 03/26/23 03/26/23 12:37 17:38 20:56 POC Glucose 212 H 261 H 264 H 03/27/23 03/27/23 03/27/23 08:53 12:24 17:46 POC Glucose 229 H 204 H 388 H* 03/27/23 03/28/23 21:55 08:43 POC Glucose 372 H* 274 H Medications Medications Current Medications Acetaminophen (Acetaminophen 325 Mg Tablet) 650 mg PO Q6H PRN PRN Reason: Headache/Pain Mild Scale (1-3) Al Hydroxide/Mg Hydroxide (Magnesium Hydrox/Alum Hydrox 30 Ml Oral.Susp) 30 ml PO Q6H PRN PRN Reason: Heartburn/Nausea Bacitracin (Bacitracin Oint 14 Gm Tube) 1 appl TOPICAL BID PRN PRN Reason: healing wound Stop: 04/01/23 19:21 Bacitracin (Bacitracin Oint 14 Gm Tube) 1 appl TOPICAL BID [facility]; Protocol Last Admin: 03/27/23 23:10 Dose: Not Given Ferrous Sulfate (Ferrous Sulfate 324 Mg Tablet.) 324 mg PO DAILY [facility] Last Admin: 03/28/23 09:16 Dose: 324 mg Hydralazine HCl (Hydralazine Hcl 50 Mg Tablet) 50 mg PO TID [facility]; Protocol Last Admin: 03/28/23 09:16 Dose: 50 mg Hydroxyzine HCl (Hydroxyzine Hcl 25 Mg Tablet) 25 mg PO Q6H PRN PRN Reason: Anxiety Last Admin: 03/27/23 22:06 Dose: 25 mg Insulin Glargine (Insulin Glargine,Hum.Rec.Anlog 100 Unit/Ml 10 Ml Vial) 22 unit SUBCUT DAILY [facility] Last Admin: 03/28/23 09:15 Dose: 22 unit Insulin Human Lispro (Insulin Lispro 100 Unit/Ml 3 Ml Vial) 0 unit SUBCUT QIDACHS [facility]; Protocol Last Admin: 03/28/23 09:15 Dose: 6 unit Levetiracetam (Levetiracetam 250 Mg Tablet) 750 mg PO BID [facility] Last Admin: 03/28/23 09:16 Dose: 750 mg Lorazepam (Lorazepam 1 Mg Tablet) 1 mg PO BEDTIME [facility] Last Admin: 03/27/23 22:06 Dose: 1 mg Losartan Potassium (Losartan Potassium 50 Mg Tablet) 50 mg PO DAILY [facility]; Protocol Last Admin: 03/28/23 09:16 Dose: 50 mg Magnesium Hydroxide (Milk Of Magnesia 30 Ml Oral.Susp) 30 ml PO DAILY PRN PRN Reason: Constipation Metformin HCl (Metformin Hcl Er 750 Mg Tab.Er.24h) 750 mg PO BEDTIME [facility] Last Admin: 03/27/23 22:05 Dose: 750 mg Nicotine Polacrilex (Nicotine Polacrilex 2 Mg Gum) 4 mg BUCCAL Q2H PRN PRN Reason: Nicotine Cravings Olanzapine (Olanzapine 10 Mg Tablet) 10 mg PO BID [facility] Last Admin: 03/28/23 09:16 Dose: 10 mg Trazodone HCl (Trazodone Hcl 50 Mg Tablet) 50 mg PO BEDTIME [facility] Last Admin: 03/27/23 22:06 Dose: 50 mg Trazodone HCl (Trazodone Hcl 50 Mg Tablet) 50 mg PO BEDTIME MRX1 PRN PRN Reason: Insomnia Last Admin: 03/28/23 02:33 Dose: 50 mg Allergies Allergies Allergy/AdvReac Type Severity Reaction Status Date / Time haloperidol Allergy Severe Nausea and Verified 03/17/23 14:24 Vomiting lithium Allergy Severe Nausea and Verified 03/17/23 14:24 Vomiting latex Allergy Mild Itching Verified 03/17/23 14:24 Assessment & Plan Assessment & Plan (1) Bipolar disorder: Status: Acute Code(s): F31.9 - Bipolar disorder, unspecified Plan Patient is a 57 year old woman with hx of bipolar d/o who presented to ER via ambulance and section 12 from [employer] secondary to erratic behavior, initially being unresponsive then throwing herself to the group, hitting, biting and choking herself. Plan: 3 day 15 minute safety checks Continue home medications Hospitalist consult for uncontrolled diabetes and low sodium Surgery consult for directions of wound care of toes 03/27: Patient was seen by surgical today for her toes. Surgical provider stated, Wounds are healing appropriately; sutures removed and clean dressings applied. Continue daily dressing changes with 3x3 or 2x2 gauze at base of 4th toes followed by 3 inch sarah wrap. She can follow up in my office in one month. She is also being followed by hospitalist for hyponatremia, hyperglycemia, and hypertension. Hospitalist reports they will change hydralazine to 50 mg p.o. t.i.d.. If BP remains elevated will add losartan 50 mg q.d. They will continue to follow for now. 03/28: Continue current plans and regimen Reason for continued inpatient stay Substantial Risk for: rapid decompensation Time Spent With Patient Time: Total time managing care of this patient today ____ minutes.
[2023-03-28] MEDS: Bacitracin Oint 14 GM TUBE 1 APPL TOPICAL (11:56)
[2023-03-28 12:49] LABS: Glucose, Whole Blood 163 mg/dL (60-115)
[2023-03-28] MEDS: Insulin Glargine,Hum.rec.anlog 100 UNIT/ML 10 ML VIAL SUBCUT (12:56)
[2023-03-28 17:21] LABS: Glucose, Whole Blood 250 mg/dL (60-115)
[2023-03-28] MEDS: metFORMIN HCl ER 750 MG TAB.ER.24H PO (20:29)
[2023-03-28] MEDS: LORazepam 1 MG TABLET PO (20:29)
[2023-03-28 20:40] VITALS: BP 109/76; PULSE 62; RESP 18; TEMP 36.4; O2SAT 98
[2023-03-28 20:41] LABS: Glucose, Whole Blood 340 mg/dL (60-115)
[2023-03-29] MEDS: hydrOXYzine HCL 25 MG TABLET PO (07:33)
[2023-03-29 08:42] VITALS: BP 194/84; PULSE 108; RESP 16; TEMP 36.7; O2SAT 96
[2023-03-29] MEDS: hydrALAZINE HCl 50 MG TABLET PO ×3 (08:44→20:49)
[2023-03-29] MEDS: Ferrous Sulfate 324 MG TABLET.DR PO (08:44)
[2023-03-29] MEDS: Losartan Potassium 50 MG TABLET PO (08:45)
[2023-03-29] MEDS: levETIRAcetam 250 MG TABLET 750 MG PO ×2 (08:45→20:49)
[2023-03-29] MEDS: OLANZapine 10 MG TABLET PO ×2 (08:45→20:50)
[2023-03-29 08:56] LABS: Glucose, Whole Blood 287 mg/dL (60-115)
[2023-03-29] MEDS: Insulin Lispro 100 UNIT/ML 3 ML VIAL SUBCUT ×4 (09:00→20:49)
[2023-03-29] MEDS: Insulin Glargine,Hum.rec.anlog 100 UNIT/ML 10 ML VIAL 28 UNIT SUBCUT (09:01)
--- NOTE | 2023-03-29 09:14 | P.PNPSI_ITS ---
Subjective Subjective Date of Service: 03/29/23 Reason For Visit: Disorganized and dangerous behavior Subjective Notes: Section 12B Interim History: Patient was seen and discussed in rounds today. Records and plans were reviewed. She continues to have some racing thoughts, high food intake and poor sleep. She has been labile. Some social interactions. 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 She was seen by surgery on Thursday and they were happy with the healing. The left foot looks a lot better. No other changes were made today Medication Compliance: Yes Side effects from medications: No Attending Groups: Yes Review of Systems Review of Systems Wounds on both feet from surgical interventions Yes all other systems are reviewed and are negative Mental Status Exam Mental Status Exam Narrative: In today's visit she is alert, oriented and pleasant. Normal speech. No eye contact. Affect is slightly labile. No signs of psychosis. No SI. Thought processes are goal directed. Judgment is mostly intact Diagnostics Vital Signs (24Hr): Vital Signs - 24 hr 03/28/23 20:40 03/29/23 08:42 Temperature 97.6 F 98.1 F Pulse Rate 62 108 H Respiratory Rate 18 16 Blood Pressure 109/76 194/84 H Pulse Oximetry 98 96 Oxygen Delivery Method Room Air Room Air BMI result Body Mass Index 19.7 Labs 03/24/23 19:23 03/26/23 09:16 Labs: Laboratory Results - last 48 hr 03/27/23 03/27/23 03/27/23 12:24 17:46 21:55 POC Glucose 204 H 388 H* 372 H* 03/28/23 03/28/23 03/28/23 08:43 12:44 17:16 POC Glucose 274 H 163 H 250 H 03/28/23 03/29/23 20:34 08:51 POC Glucose 340 H 287 H Medications Medications Current Medications Acetaminophen (Acetaminophen 325 Mg Tablet) 650 mg PO Q6H PRN PRN Reason: Headache/Pain Mild Scale (1-3) Al Hydroxide/Mg Hydroxide (Magnesium Hydrox/Alum Hydrox 30 Ml Oral.Susp) 30 ml PO Q6H PRN PRN Reason: Heartburn/Nausea Ferrous Sulfate (Ferrous Sulfate 324 Mg Tablet.) 324 mg PO DAILY [facility] Last Admin: 03/29/23 08:44 Dose: 324 mg Hydralazine HCl (Hydralazine Hcl 50 Mg Tablet) 50 mg PO TID [facility]; Protocol Last Admin: 03/29/23 08:44 Dose: 50 mg Hydroxyzine HCl (Hydroxyzine Hcl 25 Mg Tablet) 25 mg PO Q6H PRN PRN Reason: Anxiety Last Admin: 03/29/23 07:33 Dose: 25 mg Insulin Glargine (Insulin Glargine,Hum.Rec.Anlog 100 Unit/Ml 10 Ml Vial) 28 unit SUBCUT DAILY [facility] Last Admin: 03/29/23 09:01 Dose: 28 unit Insulin Human Lispro (Insulin Lispro 100 Unit/Ml 3 Ml Vial) 0 unit SUBCUT QIDACHS [facility]; Protocol Last Admin: 03/29/23 09:00 Dose: 6 unit Levetiracetam (Levetiracetam 250 Mg Tablet) 750 mg PO BID [facility] Last Admin: 03/29/23 08:45 Dose: 750 mg Lorazepam (Lorazepam 1 Mg Tablet) 1 mg PO BEDTIME [facility] Last Admin: 03/28/23 20:29 Dose: 1 mg Losartan Potassium (Losartan Potassium 50 Mg Tablet) 50 mg PO DAILY [facility]; Protocol Last Admin: 03/29/23 08:45 Dose: 50 mg Magnesium Hydroxide (Milk Of Magnesia 30 Ml Oral.Susp) 30 ml PO DAILY PRN PRN Reason: Constipation Metformin HCl (Metformin Hcl Er 750 Mg Tab.Er.24h) 750 mg PO BEDTIME [facility] Last Admin: 03/28/23 20:29 Dose: 750 mg Nicotine Polacrilex (Nicotine Polacrilex 2 Mg Gum) 4 mg BUCCAL Q2H PRN PRN Reason: Nicotine Cravings Olanzapine (Olanzapine 10 Mg Tablet) 10 mg PO BID [facility] Last Admin: 03/29/23 08:45 Dose: 10 mg Trazodone HCl (Trazodone Hcl 50 Mg Tablet) 50 mg PO BEDTIME [facility] Last Admin: 03/28/23 20:29 Dose: 50 mg Trazodone HCl (Trazodone Hcl 50 Mg Tablet) 50 mg PO BEDTIME MRX1 PRN PRN Reason: Insomnia Last Admin: 03/28/23 20:40 Dose: 50 mg Allergies Allergies Allergy/AdvReac Type Severity Reaction Status Date / Time haloperidol Allergy Severe Nausea and Verified 03/17/23 14:24 Vomiting lithium Allergy Severe Nausea and Verified 08/22/23 14:24 Vomiting latex Allergy Mild Itching Verified 03/17/23 14:24 Assessment & Plan Assessment & Plan (1) Bipolar disorder: Status: Acute Code(s): F31.9 - Bipolar disorder, unspecified Plan Patient is a 57 year old woman with hx of bipolar d/o who presented to ER via ambulance and section 12 from [place] [employer] secondary to erratic behavior, initially being unresponsive then throwing herself to the group, hitting, biting and choking herself. Plan: 3 day 15 minute safety checks Continue home medications Hospitalist consult for uncontrolled diabetes and low sodium Surgery consult for directions of wound care of toes 03/27: Patient was seen by surgical today for her toes. Surgical provider stated, Wounds are healing appropriately; sutures removed and clean dressings applied. Continue daily dressing changes with 3x3 or 2x2 gauze at base of 4th toes followed by 3 inch sarah wrap. She can follow up in my office in one month. She is also being followed by hospitalist for hyponatremia, hyperglycemia, and hypertension. Hospitalist reports they will change hydralazine to 50 mg p.o. t.i.d.. If BP remains elevated will add losartan 50 mg q.d. They will continue to follow for now. 03/28: Continue current plans and regimen 03/29: Continue current plans and regimen. Addition to right foot wound care Reason for continued inpatient stay Substantial Risk for: rapid decompensation Time Spent With Patient Time: Total time managing care of this patient today ____ minutes.
[2023-03-29 10:03] VITALS: BP 138/70; PULSE 108
--- NOTE | 2023-03-29 11:35 | PC.NURSE ---
Dressings changed to bilateral feet. . Left foot wound healed with no open areas noted. dressing applied per order. Right foot wound is draining with moderate amount of brown, foul smelling drainage on old dressing. Patient c/o pain in this area. Area surrounding wound is macerated. Dr Mccarty informed of the condition of the wound. Dressing orders changed to include durafiber AG which was applied per order. Pt tolerated procedure without issue.
[2023-03-29 12:43] LABS: Glucose, Whole Blood 292 mg/dL (60-115)
[2023-03-29 14:24] VITALS: BP 147/68; PULSE 113
[2023-03-29 17:19] LABS: Glucose, Whole Blood 329 mg/dL (60-115)
[2023-03-29 20:29] VITALS: BP 130/84; PULSE 91; RESP 18; TEMP 36.8; O2SAT 97
[2023-03-29 20:39] LABS: Glucose, Whole Blood 370 mg/dL (60-115)
[2023-03-29] MEDS: LORazepam 1 MG TABLET PO (20:50)
[2023-03-29] MEDS: traZODone HCL 50 MG TABLET PO ×2 (20:50→20:51)
[2023-03-29] MEDS: metFORMIN HCl ER 750 MG TAB.ER.24H PO (20:51)
[2023-03-30] MEDS: Acetaminophen 325 MG TABLET 650 MG PO (08:51)
[2023-03-30] MEDS: Losartan Potassium 50 MG TABLET PO (08:51)
[2023-03-30] MEDS: OLANZapine 10 MG TABLET PO ×2 (08:51→21:05)
[2023-03-30] MEDS: hydrALAZINE HCl 50 MG TABLET PO ×3 (08:51→21:04)
[2023-03-30] MEDS: levETIRAcetam 250 MG TABLET 750 MG PO ×2 (08:51→21:03)
[2023-03-30] MEDS: Ferrous Sulfate 324 MG TABLET.DR PO (08:51)
[2023-03-30 09:00] VITALS: BP 186/84; PULSE 104; RESP 18; TEMP 37.2; O2SAT 94
[2023-03-30] MEDS: Insulin Glargine,Hum.rec.anlog 100 UNIT/ML 10 ML VIAL 28 UNIT SUBCUT (09:03)
[2023-03-30] MEDS: Insulin Lispro 100 UNIT/ML 3 ML VIAL SUBCUT ×4 (09:03→21:00)
[2023-03-30 09:30] LABS: Glucose, Whole Blood 306 mg/dL (60-115)
--- NOTE | 2023-03-30 10:51 | HO.PSYCHPN ---
Subjective Subjective Date of Service: 03/30/23 Reason For Visit: Disorganized and dangerous behavior Subjective Notes: Section 12B Interim History: Patient was seen and discussed in rounds today. Records and plans were reviewed. She has been stable and mostly isolative. Moderate anxiety present. No groups attended. Eating and sleeping discussed. She has been sleeping poorly even with 100 mg of trazodone which I will increase to 200 mg. Some lability and reactivity. Her right foot continues to be malodorous and I put in a consult for the surgeon to see her tomorrow for re-evaluation and possible antibiotics. He was contacted directly also. No changes were made today other than the trazodone Medication Compliance: Yes Side effects from medications: No Attending Groups: Yes Review of Systems Review of Systems Wounds on both feet from surgical interventions Yes all other systems are reviewed and are negative Mental Status Exam Mental Status Exam Narrative: In today's visit she is alert, oriented and pleasant. Normal speech. No eye contact. Affect is slightly labile. No signs of psychosis. No SI. Thought processes are goal directed. Judgment is mostly intact Diagnostics Vital Signs (24Hr): Vital Signs - 24 hr 03/29/23 14:24 03/29/23 20:29 03/30/23 09:00 Temperature 98.2 F 99.0 F Pulse Rate 113 H 91 104 H Respiratory Rate 18 18 Blood Pressure 147/68 H 130/84 186/84 H Pulse Oximetry 97 94 Oxygen Delivery Method Room Air Room Air BMI result Body Mass Index 19.7 Labs 03/24/23 19:23 03/26/23 09:16 Labs: Laboratory Results - last 48 hr 03/28/23 03/28/23 03/28/23 12:44 17:16 20:34 POC Glucose 163 H 250 H 340 H 03/29/23 03/29/23 03/29/23 08:51 12:35 17:13 POC Glucose 287 H 292 H 329 H 03/29/23 03/30/23 20:35 08:49 POC Glucose 370 H* 306 H Medications Medications Current Medications Acetaminophen (Acetaminophen 325 Mg Tablet) 650 mg PO Q6H PRN PRN Reason: Headache/Pain Mild Scale (1-3) Last Admin: 03/30/23 08:51 Dose: 650 mg Al Hydroxide/Mg Hydroxide (Magnesium Hydrox/Alum Hydrox 30 Ml Oral.Susp) 30 ml PO Q6H PRN PRN Reason: Heartburn/Nausea Ferrous Sulfate (Ferrous Sulfate 324 Mg Tablet.Dr) 324 mg PO DAILY [facility] Last Admin: 03/30/23 08:51 Dose: 324 mg Hydralazine HCl (Hydralazine Hcl 50 Mg Tablet) 50 mg PO TID [facility]; Protocol Last Admin: 03/30/23 08:51 Dose: 50 mg Hydroxyzine HCl (Hydroxyzine Hcl 25 Mg Tablet) 25 mg PO Q6H PRN PRN Reason: Anxiety Last Admin: 03/29/23 07:33 Dose: 25 mg Insulin Glargine (Insulin Glargine,Hum.Rec.Anlog 100 Unit/Ml 10 Ml Vial) 28 unit SUBCUT DAILY [facility] Last Admin: 03/30/23 09:03 Dose: 28 unit Insulin Human Lispro (Insulin Lispro 100 Unit/Ml 3 Ml Vial) 0 unit SUBCUT QIDACHS [facility]; Protocol Last Admin: 03/30/23 09:03 Dose: 8 unit Levetiracetam (Levetiracetam 250 Mg Tablet) 750 mg PO BID [facility] Last Admin: 03/30/23 08:51 Dose: 750 mg Lorazepam (Lorazepam 1 Mg Tablet) 1 mg PO BEDTIME [facility] Last Admin: 03/29/23 20:50 Dose: 1 mg Losartan Potassium (Losartan Potassium 50 Mg Tablet) 50 mg PO DAILY [facility]; Protocol Last Admin: 03/30/23 08:51 Dose: 50 mg Magnesium Hydroxide (Milk Of Magnesia 30 Ml Oral.Susp) 30 ml PO DAILY PRN PRN Reason: Constipation Metformin HCl (Metformin Hcl Er 750 Mg Tab.Er.24h) 750 mg PO BEDTIME [facility] Last Admin: 03/29/23 20:51 Dose: 750 mg Nicotine Polacrilex (Nicotine Polacrilex 2 Mg Gum) 4 mg BUCCAL Q2H PRN PRN Reason: Nicotine Cravings Olanzapine (Olanzapine 10 Mg Tablet) 10 mg PO BID [facility] Last Admin: 03/30/23 08:51 Dose: 10 mg Trazodone HCl (Trazodone Hcl 50 Mg Tablet) 50 mg PO BEDTIME [facility] Last Admin: 03/29/23 20:50 Dose: 50 mg Trazodone HCl (Trazodone Hcl 100 Mg Tablet) 200 mg PO BEDTIME [facility] Allergies Allergies Allergy/AdvReac Type Severity Reaction Status Date / Time haloperidol Allergy Severe Nausea and Verified 03/17/23 14:24 Vomiting lithium Allergy Severe Nausea and Verified 03/17/23 14:24 Vomiting latex Allergy Mild Itching Verified 03/17/23 14:24 Assessment & Plan Assessment & Plan (1) Bipolar disorder: Status: Acute Code(s): F31.9 - Bipolar disorder, unspecified Plan Patient is a 57 year old woman with hx of bipolar d/o who presented to ER via ambulance and section 12 from [employer] secondary to erratic behavior, initially being unresponsive then throwing herself to the group, hitting, biting and choking herself. Plan: 3 day 15 minute safety checks Continue home medications Hospitalist consult for uncontrolled diabetes and low sodium Surgery consult for directions of wound care of toes 03/27: Patient was seen by surgical today for her toes. Surgical provider stated, Wounds are healing appropriately; sutures removed and clean dressings applied. Continue daily dressing changes with 3x3 or 2x2 gauze at base of 4th toes followed by 3 inch sarah wrap. She can follow up in my office in one month. She is also being followed by hospitalist for hyponatremia, hyperglycemia, and hypertension. Hospitalist reports they will change hydralazine to 50 mg p.o. t.i.d.. If BP remains elevated will add losartan 50 mg q.d. They will continue to follow for now. 03/28: Continue current plans and regimen 03/29: Continue current plans and regimen. Addition to right foot wound care 03/30: Continue current regimen and plans. Increased trazodone to 200 mg. Placed surgical consult for right foot evaluation Reason for continued inpatient stay Substantial Risk for: rapid decompensation Time Spent With Patient Time: Total time managing care of this patient today ____ minutes.
--- NOTE | 2023-03-30 11:54 | PM.EVENT ---
Event Note Date of Service: 03/30/23 Event Note: Blood pressures throughout the day better controlled with medication adjustment. However, am blood pressures remain significantly elevated. Will add amlodipine 5mg nightly. Continue hydralazine 50mg TID and losartan 50mg daily. AM BP's could be elevated due to undiagnosed sleep apnea. Would recommend sleep study on discharge. Monitor BP q6h for now. Will continue following Time Spent With Patient Time: Total time managing care of this patient today ____ minutes.
[2023-03-30 12:42] LABS: Glucose, Whole Blood 179 mg/dL (60-115)
[2023-03-30 15:30] VITALS: BP 178/84; PULSE 106; TEMP 36.8; O2SAT 96
--- NOTE | 2023-03-30 17:10 | PC.NURSE ---
Patient showered with RN assist. left 4th toe amp dsd replaced. No open areas noted. right 4th toe dsg covered and kept dry but shifted during shower and was replaced. Moderate amount of brown foul smelling drainage noted. area around the wound bed remains macerated but less so than yesterday. slough covering approx 25% of wound bed. Pt reports pain in the area. Photo of wound sent to Dr Villanueva for consult 03/31.
[2023-03-30 17:32] LABS: Glucose, Whole Blood 166 mg/dL (60-115)
[2023-03-30 19:50] VITALS: BP 165/90; PULSE 102; RESP 16; TEMP 36.4; O2SAT 97
[2023-03-30 20:32] LABS: Glucose, Whole Blood 226 mg/dL (60-115)
[2023-03-30] MEDS: traZODone HCL 100 MG TABLET 200 MG PO (21:03)
[2023-03-30] MEDS: amLODIPine Besylate 5 MG TABLET PO (21:04)
[2023-03-30] MEDS: LORazepam 1 MG TABLET PO (21:05)
[2023-03-30] MEDS: metFORMIN HCl ER 750 MG TAB.ER.24H PO (21:05)
[2023-03-31 06:00] VITALS: BP 138/63; PULSE 106; RESP 16; TEMP 36.8; O2SAT 98
[2023-03-31 08:09] LABS: Glucose, Whole Blood 205 mg/dL (60-115)
[2023-03-31 08:15] VITALS: BP 149/71; PULSE 98; RESP 16; TEMP 36.6; O2SAT 97
[2023-03-31] MEDS: OLANZapine 10 MG TABLET PO ×2 (08:19→21:28)
[2023-03-31] MEDS: Insulin Lispro 100 UNIT/ML 3 ML VIAL SUBCUT ×4 (08:19→20:55)
[2023-03-31] MEDS: Insulin Glargine,Hum.rec.anlog 100 UNIT/ML 10 ML VIAL 28 UNIT SUBCUT (08:19)
[2023-03-31] MEDS: levETIRAcetam 250 MG TABLET 750 MG PO ×2 (08:20→21:29)
[2023-03-31] MEDS: Ferrous Sulfate 324 MG TABLET.DR PO (08:21)
[2023-03-31] MEDS: hydrALAZINE HCl 50 MG TABLET PO ×3 (08:21→21:30)
[2023-03-31] MEDS: Losartan Potassium 50 MG TABLET PO (08:22)
--- NOTE | 2023-03-31 08:37 | PM.PNGS ---
Subjective Subjective Date of Service: 03/31/23 Interval history: Right foot noted to have increased discharge. Silver alginate applied yesterday. Left foot healed Physical Exam Vital Signs: Vital Signs: Last Vital Signs Temp 98.2 F 03/31/23 06:00 Pulse 106 H 03/31/23 06:00 Resp 16 03/31/23 06:00 BP 138/63 03/31/23 06:00 Pulse Ox 98 03/31/23 06:00 O2 Del Method Room Air 03/31/23 06:00 BMI result Body Mass Index 19.7 Extrem: Other: Dressing changed to the right foot; wound separation noted. No erythema appreciated. Silver alginate reapplied followed by DSD. Left foot well healed. Objective Data Active Medications Acetaminophen (Acetaminophen 325 Mg Tablet) 650 mg PO Q6H PRN PRN Reason: Headache/Pain Mild Scale (1-3) Last Admin: 03/30/23 08:51 Dose: 650 mg Documented By: DAMEON Al Hydroxide/Mg Hydroxide (Magnesium Hydrox/Alum Hydrox 30 Ml Oral.Susp) 30 ml PO Q6H PRN PRN Reason: Heartburn/Nausea Amlodipine Besylate (Amlodipine Besylate 5 Mg Tablet) 5 mg PO BEDTIME [facility]; Protocol Last Admin: 03/30/23 21:04 Dose: 5 mg Documented By: FE Ferrous Sulfate (Ferrous Sulfate 324 Mg Tablet.) 324 mg PO DAILY [facility] Last Admin: 03/31/23 08:21 Dose: 324 mg Documented By: DAMEON Hydralazine HCl (Hydralazine Hcl 50 Mg Tablet) 50 mg PO TID [facility]; Protocol Last Admin: 03/31/23 08:21 Dose: 50 mg Documented By: DAMEON Hydroxyzine HCl (Hydroxyzine Hcl 25 Mg Tablet) 25 mg PO Q6H PRN PRN Reason: Anxiety Last Admin: 03/29/23 07:33 Dose: 25 mg Documented By: TWIN Insulin Glargine (Insulin Glargine,Hum.Rec.Anlog 100 Unit/Ml 10 Ml Vial) 28 unit SUBCUT DAILY [facility] Last Admin: 03/31/23 08:19 Dose: 28 unit Documented By: DAMEON Insulin Human Lispro (Insulin Lispro 100 Unit/Ml 3 Ml Vial) 0 unit SUBCUT QIDACHS [facility]; Protocol Last Admin: 03/31/23 08:19 Dose: 4 unit Documented By: DAMEON Levetiracetam (Levetiracetam 250 Mg Tablet) 750 mg PO BID [facility] Last Admin: 03/31/23 08:20 Dose: 750 mg Documented By: DAMEON Lorazepam (Lorazepam 1 Mg Tablet) 1 mg PO BEDTIME [facility] Last Admin: 03/30/23 21:05 Dose: 1 mg Documented By: FE Losartan Potassium (Losartan Potassium 50 Mg Tablet) 50 mg PO DAILY [facility]; Protocol Last Admin: 03/31/23 08:22 Dose: 50 mg Documented By: DAMEON Magnesium Hydroxide (Milk Of Magnesia 30 Ml Oral.Susp) 30 ml PO DAILY PRN PRN Reason: Constipation Metformin HCl (Metformin Hcl Er 750 Mg Tab.Er.24h) 750 mg PO BEDTIME [facility] Last Admin: 03/30/23 21:05 Dose: 750 mg Documented By: FE Nicotine Polacrilex (Nicotine Polacrilex 2 Mg Gum) 4 mg BUCCAL Q2H PRN PRN Reason: Nicotine Cravings Olanzapine (Olanzapine 10 Mg Tablet) 10 mg PO BID [facility] Last Admin: 03/30/23 21:05 Dose: 10 mg Documented By: FE Trazodone HCl (Trazodone Hcl 100 Mg Tablet) 200 mg PO BEDTIME [facility] Last Admin: 03/30/23 21:03 Dose: 200 mg Documented By: FE Trazodone HCl (Trazodone Hcl 50 Mg Tablet) 50 mg PO BEDTIME PRN PRN Reason: continued insomnia Labs 03/24/23 19:23 03/26/23 09:16 Labs: Laboratory Results - last 24 hr 03/30/23 03/30/23 03/30/23 08:49 12:36 17:25 POC Glucose 306 H 179 H 166 H 03/30/23 03/31/23 20:27 08:05 POC Glucose 226 H 205 H Procedures Date of Service Date of Service: 03/31/23 Progress Note: A&P Assessment and plan (1) Osteomyelitis of toe of left foot: Status: Acute Plan Continued daily dressing changed with silver alginate, DSD to right foot. Time Spent With Patient Time: Total time managing care of this patient today ____ minutes. Quality Stroke Does the patient have a stroke diagnosis?: No VTE Prior VTE?: No VTE Risk Level:: Surgical - low VTE Device Contraindication: Treatment Not Indicated VTE Drug Contraindication: Treatment Not Indicated
[2023-03-31 12:00] VITALS: BP 128/65; PULSE 108
--- NOTE | 2023-03-31 12:00 | HO.PSYCHPN ---
Subjective Subjective Date of Service: 03/31/23 Reason For Visit: Disorganized and dangerous behavior Subjective Notes: Conditional Voluntary and 3 Day Interim History: Reviewed in team and . Pt presents guarded and irrtiable today. She refused to meet with T/W. Patient stated, I'm fine. I don't like it here. I want to be left alone . Pt denies SI/HI/VH/AH at this time. Medication Compliance: Yes Side effects from medications: No Attending Groups: Intermittent Review of Systems Constitutional: Reports as per HPI Eyes: Reports as per HPI Reports as per HPI Cardiovascular: Reports as per HPI Respiratory: Reports as per HPI Gastrointestinal: Reports as per HPI Genitourinary: Reports as per HPI Musculoskeletal: Reports as per HPI Skin/Breast: Reports as per HPI Reports as per HPI Psychiatric: Reports as per HPI Endocrine: Reports as per HPI Hematologic/Lymphatic: Reports as per HPI Allergic/Immunologic: Reports as per HPI Mental Status Exam Mental Status Exam Narrative: Pt is alert and oriented; behavior is guarded and irritable; dressed in casual attire; mood is described as fine ; eye contact appropriate; Speech is normal rate, volume and prosody and not pressured; no psychomotor agitation/retardation present; thought process is organized; Thought content is on discharge; otherwise pertinent to relevant topics and without any delusional content, paranoid ideations or grandiosity; denies SI/HI. There is no evidence of perceptual disturbance. Patients insight and judgment are poor but improving. Diagnostics Vital Signs (24Hr): Vital Signs - 24 hr 03/30/23 15:30 03/30/23 19:50 03/31/23 06:00 Temperature 98.3 F 97.5 F 98.2 F Pulse Rate 106 H 102 H 106 H Respiratory Rate 16 16 Blood Pressure 178/84 H 165/90 H 138/63 Pulse Oximetry 96 97 98 Oxygen Delivery Method Room Air Room Air Room Air 03/31/23 08:15 Temperature 97.8 F Pulse Rate 98 Respiratory Rate 16 Blood Pressure 149/71 H Pulse Oximetry 97 Oxygen Delivery Method Room Air BMI result Body Mass Index 19.7 Labs 03/24/23 19:23 03/26/23 09:16 Labs: Laboratory Results - last 48 hr 03/29/23 03/29/23 03/29/23 12:35 17:13 20:35 POC Glucose 292 H 329 H 370 H* 03/30/23 03/30/23 03/30/23 08:49 12:36 17:25 POC Glucose 306 H 179 H 166 H 03/30/23 03/31/23 20:27 08:05 POC Glucose 226 H 205 H Medications Medications Current Medications Acetaminophen (Acetaminophen 325 Mg Tablet) 650 mg PO Q6H PRN PRN Reason: Headache/Pain Mild Scale (1-3) Last Admin: 03/30/23 08:51 Dose: 650 mg Al Hydroxide/Mg Hydroxide (Magnesium Hydrox/Alum Hydrox 30 Ml Oral.Susp) 30 ml PO Q6H PRN PRN Reason: Heartburn/Nausea Amlodipine Besylate (Amlodipine Besylate 5 Mg Tablet) 5 mg PO BEDTIME [facility]; Protocol Last Admin: 03/30/23 21:04 Dose: 5 mg Ferrous Sulfate (Ferrous Sulfate 324 Mg Tablet.Dr) 324 mg PO DAILY [facility] Last Admin: 03/31/23 08:21 Dose: 324 mg Hydralazine HCl (Hydralazine Hcl 50 Mg Tablet) 50 mg PO TID [facility]; Protocol Last Admin: 03/31/23 08:21 Dose: 50 mg Hydroxyzine HCl (Hydroxyzine Hcl 25 Mg Tablet) 25 mg PO Q6H PRN PRN Reason: Anxiety Last Admin: 03/29/23 07:33 Dose: 25 mg Insulin Glargine (Insulin Glargine,Hum.Rec.Anlog 100 Unit/Ml 10 Ml Vial) 28 unit SUBCUT DAILY [facility] Last Admin: 03/31/23 08:19 Dose: 28 unit Insulin Human Lispro (Insulin Lispro 100 Unit/Ml 3 Ml Vial) 0 unit SUBCUT QIDACHS [facility]; Protocol Last Admin: 03/31/23 08:19 Dose: 4 unit Levetiracetam (Levetiracetam 250 Mg Tablet) 750 mg PO BID [facility] Last Admin: 03/31/23 08:20 Dose: 750 mg Lorazepam (Lorazepam 1 Mg Tablet) 1 mg PO BEDTIME [facility] Last Admin: 03/30/23 21:05 Dose: 1 mg Losartan Potassium (Losartan Potassium 50 Mg Tablet) 50 mg PO DAILY [facility]; Protocol Last Admin: 03/31/23 08:22 Dose: 50 mg Magnesium Hydroxide (Milk Of Magnesia 30 Ml Oral.Susp) 30 ml PO DAILY PRN PRN Reason: Constipation Metformin HCl (Metformin Hcl Er 750 Mg Tab.Er.24h) 750 mg PO BEDTIME [facility] Last Admin: 03/30/23 21:05 Dose: 750 mg Nicotine Polacrilex (Nicotine Polacrilex 2 Mg Gum) 4 mg BUCCAL Q2H PRN PRN Reason: Nicotine Cravings Olanzapine (Olanzapine 10 Mg Tablet) 10 mg PO BID [facility] Last Admin: 03/31/23 08:19 Dose: 10 mg Trazodone HCl (Trazodone Hcl 100 Mg Tablet) 200 mg PO BEDTIME [facility] Last Admin: 03/30/23 21:03 Dose: 200 mg Trazodone HCl (Trazodone Hcl 50 Mg Tablet) 50 mg PO BEDTIME PRN PRN Reason: continued insomnia Allergies Allergies Allergy/AdvReac Type Severity Reaction Status Date / Time haloperidol Allergy Severe Nausea and Verified 03/17/23 14:24 Vomiting lithium Allergy Severe Nausea and Verified 03/17/23 14:24 Vomiting latex Allergy Mild Itching Verified 03/17/23 14:24 Assessment & Plan Assessment & Plan (1) Bipolar disorder: Status: Acute Code(s): F31.9 - Bipolar disorder, unspecified Plan Patient is a 57 year old woman with hx of bipolar d/o who presented to ER via ambulance and section 12 from [place] secondary to erratic behavior, initially being unresponsive then throwing herself to the group, hitting, biting and choking herself. Plan: 3 day 15 minute safety checks Continue home medications Hospitalist consult for uncontrolled diabetes and low sodium Surgery consult for directions of wound care of toes 03/27:Patient was seen by surgical today for her toes. Surgical provider stated, Wounds are healing appropriately; sutures removed and clean dressings applied. Continue daily dressing changes with 3x3 or 2x2 gauze at base of 4th toes followed by 3 inch sarah wrap. She can follow up in my office in one month. She is also being followed by hospitalist for hyponatremia, hyperglycemia, and hypertension. Hospitalist reports they will change hydralazine to 50 mg p.o. t.i.d.. If BP remains elevated will add losartan 50 mg q.d. They will continue to follow for now. 03/28: Continue current plans and regimen 03/29: Continue current plans and regimen. Addition to right foot wound care 03/30: Continue current regimen and plans. Increased trazodone to 200 mg. Placed surgical consult for right foot evaluation 03/31: Pt guarded and irritable today. Retracted 3 day with certified social workers in health care, then signed another one; She refused to meet with T/W. Patient stated, I'm fine. I don't like it here. I want to be left alone . Pt denies SI/HI/VH/AH at this time. Pt was seen for surgical consult; note stated; Right foot noted to have increased discharge. Silver alginate applied yesterday. Left foot healed. Continued daily dressing changed with silver alginate, DSD to right foot. Contine current tx plan. Patient educated on: medication risk/benefits and medical condition Informed Consent: understands and further education needed Reason for continued inpatient stay Substantial Risk for: med/psych decompensation Time Spent With Patient Time: Total time managing care of this patient today _30___ minutes.
[2023-03-31 12:13] LABS: Glucose, Whole Blood 276 mg/dL (60-115)
[2023-03-31 17:24] LABS: Glucose, Whole Blood 257 mg/dL (60-115)
[2023-03-31 20:00] VITALS: BP 122/60; PULSE 110; RESP 18; TEMP 36.6; O2SAT 96
[2023-03-31 20:46] LABS: Glucose, Whole Blood 194 mg/dL (60-115)
[2023-03-31] MEDS: LORazepam 1 MG TABLET PO (21:28)
[2023-03-31] MEDS: traZODone HCL 100 MG TABLET 200 MG PO (21:28)
[2023-03-31] MEDS: metFORMIN HCl ER 750 MG TAB.ER.24H PO (21:29)
[2023-03-31] MEDS: amLODIPine Besylate 5 MG TABLET PO (21:29)
[2023-03-31] MEDS: traZODone HCL 50 MG TABLET PO (23:46)
[2023-04-01 08:28] VITALS: BP 148/72; PULSE 109; RESP 16; TEMP 36.3; O2SAT 94
[2023-04-01 08:30] LABS: Glucose, Whole Blood 306 mg/dL (60-115)
--- NOTE | 2023-04-01 09:00 | P.PNPSI_ITS ---
Subjective Subjective Date of Service: 04/01/23 Reason For Visit: Disorganized and dangerous behavior Subjective Notes: 3 Day Interim History: Reviewed in team and . Pt presents guarded and irritable today. Patient stated, I hope I get into the rehab. I'm going to keep taking my meds. I just don't want to be here anymore . Pt has been attending groups but keeping to self. Medication Compliance: Yes Side effects from medications: No Attending Groups: Yes Review of Systems Review of Systems Wounds on both feet from surgical interventions Constitutional: Reports as per HPI Eyes: Reports as per HPI Reports as per HPI Cardiovascular: Reports as per HPI Respiratory: Reports as per HPI Gastrointestinal: Reports as per HPI Genitourinary: Reports as per HPI Musculoskeletal: Reports as per HPI Skin/Breast: Reports as per HPI Reports as per HPI Psychiatric: Reports as per HPI Endocrine: Reports as per HPI Hematologic/Lymphatic: Reports as per HPI Allergic/Immunologic: Reports as per HPI Mental Status Exam Mental Status Exam Narrative: Pt is alert and oriented; behavior is guarded and irritable; dressed in casual attire; mood is described as fine ; eye contact appropriate; Speech is normal rate, volume and prosody and not pressured; no psychomotor agitation/retardation present; thought process is organized; Thought content is on discharge; otherwise pertinent to relevant topics and without any delusional content, paranoid ideations or grandiosity; denies SI/HI. There is no evidence of perceptual disturbance. Patients insight and judgment are poor but improving. Diagnostics Vital Signs (24Hr): Vital Signs - 24 hr 03/31/23 12:00 03/31/23 20:00 04/01/23 08:28 Temperature 97.8 F 97.3 F Pulse Rate 108 H 110 H 109 H Respiratory Rate 18 16 Blood Pressure 128/65 122/60 148/72 H Pulse Oximetry 96 94 Oxygen Delivery Method Room Air Room Air BMI result Body Mass Index 19.7 Labs 03/24/23 19:23 03/26/23 09:16 Labs: Laboratory Results - last 48 hr 03/30/23 03/30/23 03/30/23 08:49 12:36 17:25 POC Glucose 306 H 179 H 166 H 03/30/23 03/31/23 03/31/23 20:27 08:05 12:09 POC Glucose 226 H 205 H 276 H 03/31/23 03/31/23 04/01/23 17:16 20:41 08:19 POC Glucose 257 H 194 H 306 H Medications Medications Current Medications Acetaminophen (Acetaminophen 325 Mg Tablet) 650 mg PO Q6H PRN PRN Reason: Headache/Pain Mild Scale (1-3) Last Admin: 03/30/23 08:51 Dose: 650 mg Al Hydroxide/Mg Hydroxide (Magnesium Hydrox/Alum Hydrox 30 Ml Oral.Susp) 30 ml PO Q6H PRN PRN Reason: Heartburn/Nausea Amlodipine Besylate (Amlodipine Besylate 5 Mg Tablet) 5 mg PO BEDTIME ONEL; Protocol Last Admin: 03/31/23 21:29 Dose: 5 mg Ferrous Sulfate (Ferrous Sulfate 324 Mg Tablet.Dr) 324 mg PO DAILY ONEL Last Admin: 03/31/23 08:21 Dose: 324 mg Hydralazine HCl (Hydralazine Hcl 50 Mg Tablet) 50 mg PO TID ONEL; Protocol Last Admin: 03/31/23 21:30 Dose: 50 mg Hydroxyzine HCl (Hydroxyzine Hcl 25 Mg Tablet) 25 mg PO Q6H PRN PRN Reason: Anxiety Last Admin: 03/29/23 07:33 Dose: 25 mg Insulin Glargine (Insulin Glargine,Hum.Rec.Anlog 100 Unit/Ml 10 Ml Vial) 28 unit SUBCUT DAILY [facility] Last Admin: 03/31/23 08:19 Dose: 28 unit Insulin Human Lispro (Insulin Lispro 100 Unit/Ml 3 Ml Vial) 0 unit SUBCUT QIDACHS ONEL; Protocol Last Admin: 03/31/23 20:55 Dose: 2 unit Levetiracetam (Levetiracetam 250 Mg Tablet) 750 mg PO BID ONEL Last Admin: 03/31/23 21:29 Dose: 750 mg Lorazepam (Lorazepam 1 Mg Tablet) 1 mg PO BEDTIME ONEL Last Admin: 03/31/23 21:28 Dose: 1 mg Losartan Potassium (Losartan Potassium 50 Mg Tablet) 50 mg PO DAILY [facility]; Protocol Last Admin: 03/31/23 08:22 Dose: 50 mg Magnesium Hydroxide (Milk Of Magnesia 30 Ml Oral.Susp) 30 ml PO DAILY PRN PRN Reason: Constipation Metformin HCl (Metformin Hcl Er 750 Mg Tab.Er.24h) 750 mg PO BEDTIME ONEL Last Admin: 03/31/23 21:29 Dose: 750 mg Nicotine Polacrilex (Nicotine Polacrilex 2 Mg Gum) 4 mg BUCCAL Q2H PRN PRN Reason: Nicotine Cravings Olanzapine (Olanzapine 10 Mg Tablet) 10 mg PO BID [facility] Last Admin: 03/31/23 21:28 Dose: 10 mg Trazodone HCl (Trazodone Hcl 100 Mg Tablet) 200 mg PO BEDTIME ONEL Last Admin: 03/31/23 21:28 Dose: 200 mg Trazodone HCl (Trazodone Hcl 50 Mg Tablet) 50 mg PO BEDTIME PRN PRN Reason: continued insomnia Last Admin: 03/31/23 23:46 Dose: 50 mg Allergies Allergies Allergy/AdvReac Type Severity Reaction Status Date / Time haloperidol Allergy Severe Nausea and Verified 03/17/23 14:24 Vomiting lithium Allergy Severe Nausea and Verified 03/17/23 14:24 Vomiting latex Allergy Mild Itching Verified 03/17/23 14:24 Assessment & Plan Assessment & Plan (1) Bipolar disorder: Status: Acute Code(s): F31.9 - Bipolar disorder, unspecified Plan Patient is a 57 year old woman with hx of bipolar d/o who presented to ER via ambulance and section 12 from [employer] secondary to erratic behavior, initially being unresponsive then throwing herself to the group, hitting, biting and choking herself. Plan: 3 day 15 minute safety checks Continue home medications Hospitalist consult for uncontrolled diabetes and low sodium Surgery consult for directions of wound care of toes 03/27:Patient was seen by surgical today for her toes. Surgical provider stated, Wounds are healing appropriately; sutures removed and clean dressings applied. Continue daily dressing changes with 3x3 or 2x2 gauze at base of 4th toes followed by 3 inch sarah wrap. She can follow up in my office in one month. She is also being followed by hospitalist for hyponatremia, hyperglycemia, and hypertension. Hospitalist reports they will change hydralazine to 50 mg p.o. t.i.d.. If BP remains elevated will add losartan 50 mg q.d. They will continue to follow for now. 03/28: Continue current plans and regimen 03/29: Continue current plans and regimen. Addition to right foot wound care 03/30: Continue current regimen and plans. Increased trazodone to 200 mg. Placed surgical consult for right foot evaluation 03/31: Pt guarded and irritable today. Retracted 3 day with social service assistant, then signed another one; She refused to meet with T/W. Patient stated, I'm fine. I don't like it here. I want to be left alone . Pt denies SI/HI/VH/AH at this time. Pt was seen for surgical consult; note stated; Right foot noted to have increased discharge. Silver alginate applied yesterday. Left foot healed. Continued daily dressing changed with silver alginate, DSD to right foot. Contine current tx plan. 04/01: Pt continues guarded and irritable today. Patient stated, I hope I get into the rehab. I'm going to keep taking my meds. I just don't want to be here anymore . Pt has been attending groups but keeping to self. continue tx plan. Patient educated on: diagnosis, medication risk/benefits and therapeutic strategies Informed Consent: understands Reason for continued inpatient stay Substantial Risk for: med/psych decompensation Time Spent With Patient Time: Total time managing care of this patient today _30___ minutes.
[2023-04-01] MEDS: Insulin Glargine,Hum.rec.anlog 100 UNIT/ML 10 ML VIAL 28 UNIT SUBCUT (09:27)
[2023-04-01] MEDS: hydrALAZINE HCl 50 MG TABLET PO ×3 (09:27→21:06)
[2023-04-01] MEDS: levETIRAcetam 250 MG TABLET 750 MG PO ×2 (09:27→21:07)
[2023-04-01] MEDS: Ferrous Sulfate 324 MG TABLET.DR PO (09:27)
[2023-04-01] MEDS: Losartan Potassium 50 MG TABLET PO (09:27)
[2023-04-01] MEDS: OLANZapine 10 MG TABLET PO ×2 (09:27→21:06)
[2023-04-01] MEDS: Insulin Lispro 100 UNIT/ML 3 ML VIAL SUBCUT ×4 (09:28→21:07)
[2023-04-01 10:46] LABS: Creatinine Clr Calc Pharmacy 71.9; Estimated Glomerular Filt Rate > 60
[2023-04-01 12:00] VITALS: BP 126/68; PULSE 97; RESP 18; TEMP 36.4; O2SAT 95
[2023-04-01 12:25] LABS: Glucose, Whole Blood 325 mg/dL (60-115)
[2023-04-01 15:18] VITALS: BP 132/66
[2023-04-01 17:33] LABS: Glucose, Whole Blood 334 mg/dL (60-115)
[2023-04-01 20:00] VITALS: BP 158/80; PULSE 99; RESP 18; TEMP 36.6; O2SAT 95
[2023-04-01 20:36] LABS: Glucose, Whole Blood 435 mg/dL (60-115)
[2023-04-01] MEDS: metFORMIN HCl ER 750 MG TAB.ER.24H PO (21:06)
[2023-04-01] MEDS: traZODone HCL 50 MG TABLET PO (21:06)
[2023-04-01] MEDS: traZODone HCL 100 MG TABLET 200 MG PO (21:06)
[2023-04-01] MEDS: amLODIPine Besylate 5 MG TABLET PO (21:06)
[2023-04-01] MEDS: LORazepam 1 MG TABLET PO (21:07)
[2023-04-02 07:45] VITALS: BP 139/68; PULSE 90; RESP 18; TEMP 36.3; O2SAT 96
[2023-04-02 07:54] LABS: Glucose, Whole Blood 220 mg/dL (60-115)
[2023-04-02] MEDS: levETIRAcetam 250 MG TABLET 750 MG PO ×2 (08:48→21:25)
[2023-04-02] MEDS: hydrALAZINE HCl 50 MG TABLET PO ×3 (08:50→21:29)
[2023-04-02] MEDS: OLANZapine 10 MG TABLET PO ×2 (08:50→21:28)
[2023-04-02] MEDS: Ferrous Sulfate 324 MG TABLET.DR PO (08:50)
[2023-04-02] MEDS: Losartan Potassium 50 MG TABLET PO (08:51)
--- NOTE | 2023-04-02 08:53 | HO.PSYCHPN ---
Subjective Subjective Date of Service: 04/02/23 Reason For Visit: Disorganized and dangerous behavior Subjective Notes: 3 Day Interim History: Reviewed in team and . Pt presents guarded and irritable today. Patient stated, I'm doing alright. I'm looking forward to leaving here. I want to learn how to do my dressing on my foot . RN was notified to educate patient on this topic. Pt has been attending groups but keeping to self. 3 day is due tomorrow. Medication Compliance: Yes Side effects from medications: No Attending Groups: Yes Review of Systems Review of Systems Wounds on both feet from surgical interventions Yes all other systems are reviewed and are negative Constitutional: Reports as per HPI Eyes: Reports as per HPI Reports as per HPI Cardiovascular: Reports as per HPI Respiratory: Reports as per HPI Gastrointestinal: Reports as per HPI Genitourinary: Reports as per HPI Musculoskeletal: Reports as per HPI Skin/Breast: Reports as per HPI Reports as per HPI Psychiatric: Reports as per HPI Endocrine: Reports as per HPI Hematologic/Lymphatic: Reports as per HPI Allergic/Immunologic: Reports as per HPI Mental Status Exam Mental Status Exam Narrative: Pt is alert and oriented; behavior is guarded and irritable; dressed in casual attire; mood is described as alright ; eye contact appropriate; Speech is normal rate, volume and prosody and not pressured; no psychomotor agitation/retardation present; thought process is organized; Thought content is on discharge; otherwise pertinent to relevant topics and without any delusional content, paranoid ideations or grandiosity; denies SI/HI. There is no evidence of perceptual disturbance. Patients insight and judgment are fair. Diagnostics Vital Signs (24Hr): Vital Signs - 24 hr 04/01/23 12:00 04/01/23 15:18 04/01/23 20:00 Temperature 97.6 F 97.8 F Pulse Rate 97 99 Respiratory Rate 18 18 Blood Pressure 126/68 132/66 158/80 H Pulse Oximetry 95 95 Oxygen Delivery Method Room Air Room Air 04/02/23 07:45 Temperature 97.4 F Pulse Rate 90 Respiratory Rate 18 Blood Pressure 139/68 Pulse Oximetry 96 Oxygen Delivery Method Room Air BMI result Body Mass Index 19.7 Labs 03/24/23 19:23 04/01/23 09:53 Labs: Laboratory Results - last 48 hr 03/31/23 03/31/23 03/31/23 12:09 17:16 20:41 Creatinine Estim Creat Clear Calc Estimated GFR POC Glucose 276 H 257 H 194 H 04/01/23 04/01/23 04/01/23 08:19 09:53 12:22 Creatinine 0.70 Estim Creat Clear Calc 71.9 Estimated GFR > 60 POC Glucose 306 H 325 H 04/01/23 04/01/23 04/02/23 17:28 20:32 07:51 Creatinine Estim Creat Clear Calc Estimated GFR POC Glucose 334 H 435 H* 220 H Medications Medications Current Medications Acetaminophen (Acetaminophen 325 Mg Tablet) 650 mg PO Q6H PRN PRN Reason: Headache/Pain Mild Scale (1-3) Last Admin: 03/30/23 08:51 Dose: 650 mg Al Hydroxide/Mg Hydroxide (Magnesium Hydrox/Alum Hydrox 30 Ml Oral.Susp) 30 ml PO Q6H PRN PRN Reason: Heartburn/Nausea Amlodipine Besylate (Amlodipine Besylate 5 Mg Tablet) 5 mg PO BEDTIME ONEL; Protocol Last Admin: 04/01/23 21:06 Dose: 5 mg Ferrous Sulfate (Ferrous Sulfate 324 Mg Tablet.Dr) 324 mg PO DAILY [facility] Last Admin: 04/02/23 08:50 Dose: 324 mg Hydralazine HCl (Hydralazine Hcl 50 Mg Tablet) 50 mg PO TID ONEL; Protocol Last Admin: 04/02/23 08:50 Dose: 50 mg Hydroxyzine HCl (Hydroxyzine Hcl 25 Mg Tablet) 25 mg PO Q6H PRN PRN Reason: Anxiety Last Admin: 03/29/23 07:33 Dose: 25 mg Insulin Glargine (Insulin Glargine,Hum.Rec.Anlog 100 Unit/Ml 10 Ml Vial) 28 unit SUBCUT DAILY [facility] Last Admin: 04/01/23 09:27 Dose: 28 unit Insulin Human Lispro (Insulin Lispro 100 Unit/Ml 3 Ml Vial) 0 unit SUBCUT QIDACHS ONEL; Protocol Last Admin: 04/01/23 21:07 Dose: 10 unit Levetiracetam (Levetiracetam 250 Mg Tablet) 750 mg PO BID ONEL Last Admin: 04/02/23 08:48 Dose: 750 mg Lorazepam (Lorazepam 1 Mg Tablet) 1 mg PO BEDTIME ONEL Last Admin: 04/01/23 21:07 Dose: 1 mg Losartan Potassium (Losartan Potassium 50 Mg Tablet) 50 mg PO DAILY [facility]; Protocol Last Admin: 04/02/23 08:51 Dose: 50 mg Magnesium Hydroxide (Milk Of Magnesia 30 Ml Oral.Susp) 30 ml PO DAILY PRN PRN Reason: Constipation Metformin HCl (Metformin Hcl Er 750 Mg Tab.Er.24h) 750 mg PO BEDTIME ONEL Last Admin: 04/01/23 21:06 Dose: 750 mg Nicotine Polacrilex (Nicotine Polacrilex 2 Mg Gum) 4 mg BUCCAL Q2H PRN PRN Reason: Nicotine Cravings Olanzapine (Olanzapine 10 Mg Tablet) 10 mg PO BID ONEL Last Admin: 04/02/23 08:50 Dose: 10 mg Trazodone HCl (Trazodone Hcl 100 Mg Tablet) 200 mg PO BEDTIME ONEL Last Admin: 04/01/23 21:06 Dose: 200 mg Trazodone HCl (Trazodone Hcl 50 Mg Tablet) 50 mg PO BEDTIME PRN PRN Reason: continued insomnia Last Admin: 04/01/23 21:06 Dose: 50 mg Allergies Allergies Allergy/AdvReac Type Severity Reaction Status Date / Time haloperidol Allergy Severe Nausea and Verified 03/17/23 14:24 Vomiting lithium Allergy Severe Nausea and Verified 03/17/23 14:24 Vomiting latex Allergy Mild Itching Verified 03/17/23 14:24 Assessment & Plan Assessment & Plan (1) Bipolar disorder: Status: Acute Code(s): F31.9 - Bipolar disorder, unspecified Plan Patient is a 57 year old woman with hx of bipolar d/o who presented to ER via ambulance and section 12 from [employer] secondary to erratic behavior, initially being unresponsive then throwing herself to the group, hitting, biting and choking herself. Plan: 3 day 15 minute safety checks Continue home medications Hospitalist consult for uncontrolled diabetes and low sodium Surgery consult for directions of wound care of toes 03/27:Patient was seen by surgical today for her toes. Surgical provider stated, Wounds are healing appropriately; sutures removed and clean dressings applied. Continue daily dressing changes with 3x3 or 2x2 gauze at base of 4th toes followed by 3 inch sarah wrap. She can follow up in my office in one month. She is also being followed by hospitalist for hyponatremia, hyperglycemia, and hypertension. Hospitalist reports they will change hydralazine to 50 mg p.o. t.i.d.. If BP remains elevated will add losartan 50 mg q.d. They will continue to follow for now. 03/28: Continue current plans and regimen 03/29: Continue current plans and regimen. Addition to right foot wound care 03/30: Continue current regimen and plans. Increased trazodone to 200 mg. Placed surgical consult for right foot evaluation 03/31: Pt guarded and irritable today. Retracted 3 day with social and human services assistant, then signed another one; She refused to meet with T/W. Patient stated, I'm fine. I don't like it here. I want to be left alone . Pt denies SI/HI/VH/AH at this time. Pt was seen for surgical consult; note stated; Right foot noted to have increased discharge. Silver alginate applied yesterday. Left foot healed. Continued daily dressing changed with silver alginate, DSD to right foot. Contine current tx plan. 04/01: Pt continues guarded and irritable today. Patient stated, I hope I get into the rehab. I'm going to keep taking my meds. I just don't want to be here anymore . Pt has been attending groups but keeping to self. continue tx plan. 04/02: Pt presents guarded and irritable today. Patient stated, I'm doing alright. I'm looking forward to leaving here. I want to learn how to do my dressing on my foot . RN was notified to educate patient on this topic. Pt has been attending groups but keeping to self. 3 day is due tomorrow. Patient educated on: diagnosis, medication risk/benefits, therapeutic strategies and medical condition Informed Consent: understands Reason for continued inpatient stay Substantial Risk for: med/psych decompensation Time Spent With Patient Time: Total time managing care of this patient today _30___ minutes.
[2023-04-02] MEDS: Insulin Lispro 100 UNIT/ML 3 ML VIAL SUBCUT ×3 (09:25→21:53)
[2023-04-02] MEDS: Insulin Glargine,Hum.rec.anlog 100 UNIT/ML 10 ML VIAL 28 UNIT SUBCUT (09:27)
[2023-04-02 12:00] VITALS: BP 170/77; PULSE 105; RESP 16; O2SAT 97
[2023-04-02 12:04] LABS: Glucose, Whole Blood 120 mg/dL (60-115)
--- NOTE | 2023-04-02 12:09 | PC.NURSE ---
Patient assisted to shower with T/W and dressing to 4th right toe completed as ordered. Old dressing had yellow drainage present with odor. Open wound healing with granulation pink tissue in center with sloughing yellow on edges. wound margin irregular with slit noted between 4th digit. Patient tolerated well and reported that she didn't need pain medication to manage pain. No s/s of infection observed.
[2023-04-02 12:34] VITALS: BMI 21.6
[2023-04-02 17:18] LABS: Glucose, Whole Blood 193 mg/dL (60-115)
[2023-04-02 20:10] VITALS: BP 167/78; PULSE 108; RESP 18; TEMP 36.8; O2SAT 98
[2023-04-02] MEDS: traZODone HCL 100 MG TABLET 200 MG PO (21:28)
[2023-04-02] MEDS: metFORMIN HCl ER 750 MG TAB.ER.24H PO (21:29)
[2023-04-02] MEDS: LORazepam 1 MG TABLET PO (21:29)
[2023-04-02 21:43] LABS: Glucose, Whole Blood 309 mg/dL (60-115)
[2023-04-02] MEDS: amLODIPine Besylate 5 MG TABLET PO (22:31)
[2023-04-03] MEDS: Insulin Lispro 100 UNIT/ML 3 ML VIAL SUBCUT ×4 (08:29→21:15)
[2023-04-03] MEDS: Insulin Glargine,Hum.rec.anlog 100 UNIT/ML 10 ML VIAL 28 UNIT SUBCUT (08:30)
[2023-04-03] MEDS: Ferrous Sulfate 324 MG TABLET.DR PO (08:31)
[2023-04-03] MEDS: levETIRAcetam 250 MG TABLET 750 MG PO ×2 (08:31→21:13)
[2023-04-03] MEDS: OLANZapine 10 MG TABLET PO ×2 (08:31→21:14)
[2023-04-03] MEDS: hydrALAZINE HCl 50 MG TABLET PO ×3 (08:31→21:14)
[2023-04-03] MEDS: Losartan Potassium 50 MG TABLET PO (08:31)
[2023-04-03 08:33] LABS: Glucose, Whole Blood 293 mg/dL (60-115)
[2023-04-03] MEDS: hydrOXYzine HCL 25 MG TABLET PO (08:47)
[2023-04-03 09:15] VITALS: BP 191/94; PULSE 92; RESP 18; TEMP 36.7; O2SAT 97
--- NOTE | 2023-04-03 12:33 | HO.PSYCHPN ---
Subjective Subjective Date of Service: 04/03/23 Reason For Visit: Disorganized and dangerous behavior Subjective Notes: Conditional Voluntary Interim History: Reviewed in team and . Pt continues irritable today. Reports she does not want to be here but understands it is not medically castro to be discharged d/t her being unable to care for wound. Concerned about belongings; her belongings from [facility] were brought to hospital; now feels less anxious. Retracted 3 day. Social work will continue to look for placement. OT to do MOCA. Nursing to continuously educate pt on dressing change. Medication Compliance: Yes Side effects from medications: No Attending Groups: Yes Review of Systems Review of Systems Wounds on both feet from surgical interventions Yes all other systems are reviewed and are negative Constitutional: Reports as per HPI Eyes: Reports as per HPI Reports as per HPI Cardiovascular: Reports as per HPI Respiratory: Reports as per HPI Gastrointestinal: Reports as per HPI Genitourinary: Reports as per HPI Musculoskeletal: Reports as per HPI Skin/Breast: Reports as per HPI Reports as per HPI Psychiatric: Reports as per HPI Endocrine: Reports as per HPI Hematologic/Lymphatic: Reports as per HPI Allergic/Immunologic: Reports as per HPI Mental Status Exam Mental Status Exam Narrative: Pt is alert and oriented; behavior is guarded and irritable; dressed in casual attire; mood is described as alright ; eye contact appropriate; Speech is normal rate, volume and prosody and not pressured; no psychomotor agitation/retardation present; thought process is organized; Thought content is on discharge; otherwise pertinent to relevant topics and without any delusional content, paranoid ideations or grandiosity; denies SI/HI. There is no evidence of perceptual disturbance. Patients insight and judgment are fair. Diagnostics Vital Signs (24Hr): Vital Signs - 24 hr 04/02/23 20:10 Temperature 98.2 F Pulse Rate 108 H Respiratory Rate 18 Blood Pressure 167/78 H Pulse Oximetry 98 Oxygen Delivery Method Room Air BMI result Body Mass Index 21.6 Labs 03/24/23 19:23 04/01/23 09:53 Labs: Laboratory Results - last 48 hr 04/01/23 04/01/23 04/02/23 17:28 20:32 07:51 POC Glucose 334 H 435 H* 220 H 04/02/23 04/02/23 04/02/23 12:00 17:14 21:23 POC Glucose 120 H 193 H 309 H 04/03/23 08:02 POC Glucose 293 H Medications Medications Current Medications Acetaminophen (Acetaminophen 325 Mg Tablet) 650 mg PO Q6H PRN PRN Reason: Headache/Pain Mild Scale (1-3) Last Admin: 03/30/23 08:51 Dose: 650 mg Al Hydroxide/Mg Hydroxide (Magnesium Hydrox/Alum Hydrox 30 Ml Oral.Susp) 30 ml PO Q6H PRN PRN Reason: Heartburn/Nausea Amlodipine Besylate (Amlodipine Besylate 5 Mg Tablet) 5 mg PO BEDTIME ONEL; Protocol Last Admin: 04/02/23 22:31 Dose: 5 mg Ferrous Sulfate (Ferrous Sulfate 324 Mg Tablet.Dr) 324 mg PO DAILY ON[facility] Last Admin: 04/03/23 08:31 Dose: 324 mg Hydralazine HCl (Hydralazine Hcl 50 Mg Tablet) 50 mg PO TID ONEL; Protocol Last Admin: 04/03/23 08:31 Dose: 50 mg Hydroxyzine HCl (Hydroxyzine Hcl 25 Mg Tablet) 25 mg PO Q6H PRN PRN Reason: Anxiety Last Admin: 04/03/23 08:47 Dose: 25 mg Insulin Glargine (Insulin Glargine,Hum.Rec.Anlog 100 Unit/Ml 10 Ml Vial) 28 unit SUBCUT DAILY [facility] Last Admin: 04/03/23 08:30 Dose: 28 unit Insulin Human Lispro (Insulin Lispro 100 Unit/Ml 3 Ml Vial) 0 unit SUBCUT QIDACHS ONEL; Protocol Last Admin: 04/03/23 08:29 Dose: 6 unit Levetiracetam (Levetiracetam 250 Mg Tablet) 750 mg PO BID ONEL Last Admin: 04/03/23 08:31 Dose: 750 mg Lorazepam (Lorazepam 1 Mg Tablet) 1 mg PO BEDTIME ONEL Last Admin: 04/02/23 21:29 Dose: 1 mg Lorazepam (Lorazepam 0.5 Mg Tablet) 0.5 mg PO BID PRN PRN Reason: anxiety/restlessness Losartan Potassium (Losartan Potassium 50 Mg Tablet) 50 mg PO DAILY [facility]; Protocol Last Admin: 04/03/23 08:31 Dose: 50 mg Magnesium Hydroxide (Milk Of Magnesia 30 Ml Oral.Susp) 30 ml PO DAILY PRN PRN Reason: Constipation Metformin HCl (Metformin Hcl Er 750 Mg Tab.Er.24h) 750 mg PO BEDTIME ONEL Last Admin: 04/02/23 21:29 Dose: 750 mg Nicotine Polacrilex (Nicotine Polacrilex 2 Mg Gum) 4 mg BUCCAL Q2H PRN PRN Reason: Nicotine Cravings Olanzapine (Olanzapine 10 Mg Tablet) 10 mg PO BID [facility] Last Admin: 04/03/23 08:31 Dose: 10 mg Trazodone HCl (Trazodone Hcl 100 Mg Tablet) 200 mg PO BEDTIME [facility] Last Admin: 04/02/23 21:28 Dose: 200 mg Trazodone HCl (Trazodone Hcl 50 Mg Tablet) 50 mg PO BEDTIME PRN PRN Reason: continued insomnia Last Admin: 04/01/23 21:06 Dose: 50 mg Allergies Allergies Allergy/AdvReac Type Severity Reaction Status Date / Time haloperidol Allergy Severe Nausea and Verified 03/17/23 14:24 Vomiting lithium Allergy Severe Nausea and Verified 03/17/23 14:24 Vomiting latex Allergy Mild Itching Verified 03/17/23 14:24 Assessment & Plan Assessment & Plan (1) Bipolar disorder: Status: Acute Code(s): F31.9 - Bipolar disorder, unspecified Plan Patient is a 57 year old woman with hx of bipolar d/o who presented to ER via ambulance and section 12 from [employer] secondary to erratic behavior, initially being unresponsive then throwing herself to the group, hitting, biting and choking herself. Plan: 3 day 15 minute safety checks Continue home medications Hospitalist consult for uncontrolled diabetes and low sodium Surgery consult for directions of wound care of toes 03/27:Patient was seen by surgical today for her toes. Surgical provider stated, Wounds are healing appropriately; sutures removed and clean dressings applied. Continue daily dressing changes with 3x3 or 2x2 gauze at base of 4th toes followed by 3 inch sarah wrap. She can follow up in my office in one month. She is also being followed by hospitalist for hyponatremia, hyperglycemia, and hypertension. Hospitalist reports they will change hydralazine to 50 mg p.o. t.i.d.. If BP remains elevated will add losartan 50 mg q.d. They will continue to follow for now. 03/28: Continue current plans and regimen 03/29: Continue current plans and regimen. Addition to right foot wound care 03/30: Continue current regimen and plans. Increased trazodone to 200 mg. Placed surgical consult for right foot evaluation 03/31: Pt guarded and irritable today. Retracted 3 day with high school social studies tutor, then signed another one; She refused to meet with T/W. Patient stated, I'm fine. I don't like it here. I want to be left alone . Pt denies SI/HI/VH/AH at this time. Pt was seen for surgical consult; note stated; Right foot noted to have increased discharge. Silver alginate applied yesterday. Left foot healed. Continued daily dressing changed with silver alginate, DSD to right foot. Contine current tx plan. 04/01: Pt continues guarded and irritable today. Patient stated, I hope I get into the rehab. I'm going to keep taking my meds. I just don't want to be here anymore . Pt has been attending groups but keeping to self. continue tx plan. 04/02: Pt presents guarded and irritable today. Patient stated, I'm doing alright. I'm looking forward to leaving here. I want to learn how to do my dressing on my foot . RN was notified to educate patient on this topic. Pt has been attending groups but keeping to self. 3 day is due tomorrow. 04/03: Pt continues irritable today. Reports she does not want to be here but understands it is not medically castro to be discharged d/t her being unable to care for wound. Concerned about belongings; her belongings from [facility] were brought to hospital; now feels less anxious. Retracted 3 day. Social work will continue to look for placement. OT to do MOCA. Continue current tx plan. Patient educated on: diagnosis, medication risk/benefits and medical condition Informed Consent: understands Reason for continued inpatient stay Substantial Risk for: med/psych decompensation Time Spent With Patient Time: Total time managing care of this patient today _30___ minutes.
[2023-04-03 12:53] LABS: Glucose, Whole Blood 205 mg/dL (60-115)
[2023-04-03 15:05] VITALS: BP 157/72; PULSE 101; RESP 18; TEMP 36.7; O2SAT 96
[2023-04-03 17:52] LABS: Glucose, Whole Blood 306 mg/dL (60-115)
[2023-04-03] MEDS: Acetaminophen 325 MG TABLET 650 MG PO (18:58)
[2023-04-03 20:00] VITALS: BP 157/74; PULSE 100; RESP 18; TEMP 36.3; O2SAT 96
[2023-04-03 20:50] LABS: Glucose, Whole Blood 299 mg/dL (60-115)
[2023-04-03] MEDS: traZODone HCL 100 MG TABLET 200 MG PO (21:13)
[2023-04-03] MEDS: LORazepam 1 MG TABLET PO (21:14)
[2023-04-03] MEDS: traZODone HCL 50 MG TABLET PO (21:14)
[2023-04-03] MEDS: amLODIPine Besylate 5 MG TABLET PO (21:14)
[2023-04-03] MEDS: metFORMIN HCl ER 750 MG TAB.ER.24H PO (21:28)
[2023-04-04 06:00] VITALS: BP 159/76; PULSE 102; RESP 16; TEMP 36.6; O2SAT 96
[2023-04-04 08:36] LABS: Glucose, Whole Blood 278 mg/dL (60-115)
[2023-04-04] MEDS: hydrALAZINE HCl 50 MG TABLET PO ×3 (09:06→20:46)
[2023-04-04] MEDS: Ferrous Sulfate 324 MG TABLET.DR PO (09:06)
[2023-04-04] MEDS: levETIRAcetam 250 MG TABLET 750 MG PO ×2 (09:06→20:47)
[2023-04-04] MEDS: Losartan Potassium 50 MG TABLET PO (09:07)
[2023-04-04] MEDS: OLANZapine 10 MG TABLET PO ×2 (09:07→20:46)
[2023-04-04] MEDS: Insulin Lispro 100 UNIT/ML 3 ML VIAL SUBCUT ×4 (09:09→20:45)
[2023-04-04] MEDS: Insulin Glargine,Hum.rec.anlog 100 UNIT/ML 10 ML VIAL 28 UNIT SUBCUT (09:10)
[2023-04-04 12:01] LABS: Glucose, Whole Blood 236 mg/dL (60-115)
[2023-04-04 13:06] VITALS: BP 144/70; PULSE 101; RESP 18; O2SAT 98
[2023-04-04 15:10] VITALS: BP 148/75; PULSE 101; RESP 16; O2SAT 97
--- NOTE | 2023-04-04 16:25 | P.PNPSI_ITS ---
Subjective Subjective Date of Service: 04/04/23 Reason For Visit: Disorganized and dangerous behavior Subjective Notes: Conditional Voluntary Medical Problems Affecting Mental Status: No Interim History: met with patient. Discussed with Nursing. Overall does seem to be improving with frustration tolerance much better. Had a choking incident yesterday. However today despite diet order, has been eating regular food and was witnessed to be eating a cheeseburger. No difficulty doing same. Otherwise frustrated regarding disposition planning and needing medical care in the context of wound care for amputated toe. Reports feeling safe in supported by staff. Hopeful for short-term physical rehab. Sleep remains a chronic issue Review of Systems Review of Systems unremarkable Mental Status Exam Mental Status Exam Narrative: Pt is alert and oriented; behavior is less guarded; dressed in casual attire; mood is described as ok ; eye contact appropriate; Speech is normal rate, volume and prosody and not pressured; no psychomotor agitation/retardation present; thought process is organized; Thought content is on discharge; otherwise pertinent to relevant topics and without any delusional content, paranoid ideations or grandiosity; denies SI/HI. There is no evidence of perceptual disturbance. Patients insight and judgment are fair. Diagnostics Vital Signs (24Hr): Vital Signs - 24 hr 04/03/23 20:00 04/04/23 06:00 04/04/23 13:06 Temperature 97.4 F 97.8 F Pulse Rate 100 102 H 101 H Respiratory Rate 18 16 18 Blood Pressure 157/74 H 159/76 H 144/70 H Pulse Oximetry 96 96 98 Oxygen Delivery Method Room Air Room Air Room Air 04/04/23 15:10 Temperature Pulse Rate 101 H Respiratory Rate 16 Blood Pressure 148/75 H Pulse Oximetry 97 Oxygen Delivery Method Room Air BMI result Body Mass Index 21.6 Labs 03/24/23 19:23 04/01/23 09:53 Labs: Laboratory Results - last 48 hr 04/02/23 04/02/23 04/03/23 17:14 21:23 08:02 POC Glucose 193 H 309 H 293 H 04/03/23 04/03/23 04/03/23 12:45 17:30 20:41 POC Glucose 205 H 306 H 299 H 04/04/23 04/04/23 08:00 11:53 POC Glucose 278 H 236 H Medications Medications Current Medications Acetaminophen (Acetaminophen 325 Mg Tablet) 650 mg PO Q6H PRN PRN Reason: Headache/Pain Mild Scale (1-3) Last Admin: 04/03/23 18:58 Dose: 650 mg Al Hydroxide/Mg Hydroxide (Magnesium Hydrox/Alum Hydrox 30 Ml Oral.Susp) 30 ml PO Q6H PRN PRN Reason: Heartburn/Nausea Amlodipine Besylate (Amlodipine Besylate 5 Mg Tablet) 5 mg PO BEDTIME ONEL; Protocol Last Admin: 04/03/23 21:14 Dose: 5 mg Ferrous Sulfate (Ferrous Sulfate 324 Mg Tablet.Dr) 324 mg PO DAILY ON[facility] Last Admin: 04/04/23 09:06 Dose: 324 mg Hydralazine HCl (Hydralazine Hcl 50 Mg Tablet) 50 mg PO TID ONEL; Protocol Last Admin: 04/04/23 15:15 Dose: 50 mg Hydroxyzine HCl (Hydroxyzine Hcl 25 Mg Tablet) 25 mg PO Q6H PRN PRN Reason: Anxiety Last Admin: 04/03/23 08:47 Dose: 25 mg Insulin Glargine (Insulin Glargine,Hum.Rec.Anlog 100 Unit/Ml 10 Ml Vial) 28 unit SUBCUT DAILY [facility] Last Admin: 04/04/23 09:10 Dose: 28 unit Insulin Human Lispro (Insulin Lispro 100 Unit/Ml 3 Ml Vial) 0 unit SUBCUT QIDACHS [facility]; Protocol Last Admin: 04/04/23 12:52 Dose: 4 unit Levetiracetam (Levetiracetam 250 Mg Tablet) 750 mg PO BID [facility] Last Admin: 04/04/23 09:06 Dose: 750 mg Lorazepam (Lorazepam 1 Mg Tablet) 1 mg PO BEDTIME ON[facility] Last Admin: 04/03/23 21:14 Dose: 1 mg Lorazepam (Lorazepam 0.5 Mg Tablet) 0.5 mg PO BID PRN PRN Reason: anxiety/restlessness Losartan Potassium (Losartan Potassium 50 Mg Tablet) 50 mg PO DAILY ON[facility]; Protocol Last Admin: 04/04/23 09:07 Dose: 50 mg Magnesium Hydroxide (Milk Of Magnesia 30 Ml Oral.Susp) 30 ml PO DAILY PRN PRN Reason: Constipation Metformin HCl (Metformin Hcl Er 750 Mg Tab.Er.24h) 750 mg PO BEDTIME ONEL Last Admin: 04/03/23 21:28 Dose: 750 mg Nicotine Polacrilex (Nicotine Polacrilex 2 Mg Gum) 4 mg BUCCAL Q2H PRN PRN Reason: Nicotine Cravings Olanzapine (Olanzapine 10 Mg Tablet) 10 mg PO BID [facility] Last Admin: 04/04/23 09:07 Dose: 10 mg Trazodone HCl (Trazodone Hcl 100 Mg Tablet) 200 mg PO BEDTIME ON[facility] Last Admin: 04/03/23 21:13 Dose: 200 mg Trazodone HCl (Trazodone Hcl 50 Mg Tablet) 50 mg PO BEDTIME PRN PRN Reason: continued insomnia Last Admin: 04/03/23 21:14 Dose: 50 mg Allergies Allergies Allergy/AdvReac Type Severity Reaction Status Date / Time haloperidol Allergy Severe Nausea and Verified 03/17/23 14:24 Vomiting lithium Allergy Severe Nausea and Verified 03/17/23 14:24 Vomiting latex Allergy Mild Itching Verified 03/17/23 14:24 Assessment & Plan Assessment & Plan (1) Bipolar disorder: Status: Acute Code(s): F31.9 - Bipolar disorder, unspecified Plan Patient is a 57 year old woman with hx of bipolar d/o who presented to ER via ambulance and section 12 from [id number] secondary to erratic behavior, initially being unresponsive then throwing herself to the group, hitting, biting and choking herself. Plan: 3 day 15 minute safety checks Continue home medications Hospitalist consult for uncontrolled diabetes and low sodium Surgery consult for directions of wound care of toes 03/27:Patient was seen by surgical today for her toes. Surgical provider stated, Wounds are healing appropriately; sutures removed and clean dressings applied. Continue daily dressing changes with 3x3 or 2x2 gauze at base of 4th toes followed by 3 inch sarah wrap. She can follow up in my office in one month. She is also being followed by hospitalist for hyponatremia, hyperglycemia, and hypertension. Hospitalist reports they will change hydralazine to 50 mg p.o. t.i.d.. If BP remains elevated will add losartan 50 mg q.d. They will continue to follow for now. 03/28: Continue current plans and regimen 03/29: Continue current plans and regimen. Addition to right foot wound care 03/30: Continue current regimen and plans. Increased trazodone to 200 mg. Placed surgical consult for right foot evaluation 03/31: Pt guarded and irritable today. Retracted 3 day with social work faculty member, then signed another one; She refused to meet with T/W. Patient stated, I'm fine. I don't like it here. I want to be left alone . Pt denies SI/HI/VH/AH at this time. Pt was seen for surgical consult; note stated; Right foot noted to have increased discharge. Silver alginate applied yesterday. Left foot healed. Continued daily dressing changed with silver alginate, DSD to right foot. Contine current tx plan. 04/01: Pt continues guarded and irritable today. Patient stated, I hope I get into the rehab. I'm going to keep taking my meds. I just don't want to be here anymore . Pt has been attending groups but keeping to self. continue tx plan. 04/02: Pt presents guarded and irritable today. Patient stated, I'm doing alright. I'm looking forward to leaving here. I want to learn how to do my dressing on my foot . RN was notified to educate patient on this topic. Pt has been attending groups but keeping to self. 3 day is due tomorrow. 04/03: Pt continues irritable today. Reports she does not want to be here but understands it is not medically castro to be discharged d/t her being unable to care for wound. Concerned about belongings; her belongings from senior living were brought to hospital; now feels less anxious. Retracted 3 day. Social work will continue to look for placement. OT to do MOCA. Continue current tx plan. 04/04/2023: No changes to current plan Reason for continued inpatient stay Substantial Risk for: med/psych decompensation Time Spent With Patient Time: Total time managing care of this patient today ____ minutes.
[2023-04-04 17:49] LABS: Glucose, Whole Blood 273 mg/dL (60-115)
[2023-04-04 19:45] VITALS: BP 136/66; PULSE 110; RESP 18; TEMP 36.8; O2SAT 96
[2023-04-04 20:41] LABS: Glucose, Whole Blood 300 mg/dL (60-115)
[2023-04-04] MEDS: amLODIPine Besylate 5 MG TABLET PO (20:46)
[2023-04-04] MEDS: metFORMIN HCl ER 750 MG TAB.ER.24H PO (20:46)
[2023-04-04] MEDS: traZODone HCL 100 MG TABLET 200 MG PO (20:46)
[2023-04-04] MEDS: LORazepam 1 MG TABLET PO (20:47)
[2023-04-04] MEDS: Acetaminophen 325 MG TABLET 650 MG PO (21:28)
[2023-04-05 08:27] LABS: Glucose, Whole Blood 335 mg/dL (60-115)
[2023-04-05 08:45] VITALS: BP 156/83; PULSE 109; RESP 20; TEMP 36.4; O2SAT 96
[2023-04-05] MEDS: OLANZapine 10 MG TABLET PO ×2 (08:53→20:51)
[2023-04-05] MEDS: hydrALAZINE HCl 50 MG TABLET PO ×3 (08:53→20:51)
[2023-04-05] MEDS: levETIRAcetam 250 MG TABLET 750 MG PO ×2 (08:53→20:51)
[2023-04-05] MEDS: Insulin Lispro 100 UNIT/ML 3 ML VIAL SUBCUT ×4 (08:53→20:49)
[2023-04-05] MEDS: Ferrous Sulfate 324 MG TABLET.DR PO (08:53)
[2023-04-05] MEDS: Losartan Potassium 50 MG TABLET PO (08:53)
[2023-04-05] MEDS: Insulin Glargine,Hum.rec.anlog 100 UNIT/ML 10 ML VIAL 28 UNIT SUBCUT (08:54)
--- NOTE | 2023-04-05 10:07 | PC.NURSE ---
Patient assisted to shower with this scientific technical writer. 4th R toe dressing change completed as ordered. Yellow drainage present on old dressing, foul smell. Open would healing with granulation, pink tissue in center. Yellow slough present. Cleansed, tolerated dressing change well. No c/o pain.
[2023-04-05] MEDS: Acetaminophen 325 MG TABLET 650 MG PO (11:37)
[2023-04-05 12:34] LABS: Glucose, Whole Blood 254 mg/dL (60-115)
[2023-04-05 13:55] VITALS: BP 133/63; PULSE 101; RESP 20; TEMP 36.4; O2SAT 96
[2023-04-05 15:11] VITALS: BP 171/74; PULSE 91; RESP 18
--- NOTE | 2023-04-05 16:27 | P.PNPSI_ITS ---
Subjective Subjective Date of Service: 04/05/23 Reason For Visit: Disorganized and dangerous behavior Interim History: Less irritable today. No dietary issues. Denied depression, SI, HI, psychosis. Sleep chronically poor.. In groups. Otherwise frustrated regarding disposition planning and needing medical care in the context of wound care for amputated toe. Reports feeling safe in supported by staff. Hopeful for short-term physical rehab. Medication Compliance: Yes Attending Groups: Yes Review of Systems Acute medical concerns: No Review of Systems Review of Systems unremarkable Mental Status Exam Mental Status Exam Narrative: Pleasant today. Fair self-care. Hospital clothing. Alert and oriented. No SI or HI evident. No evidence of psychosis. Insight and judgment fair Diagnostics Vital Signs (24Hr): Vital Signs - 24 hr 04/04/23 19:45 04/05/23 08:45 04/05/23 13:55 Temperature 98.2 F 97.6 F 97.6 F Pulse Rate 110 H 109 H 101 H Respiratory Rate 18 20 20 Blood Pressure 136/66 156/83 H 133/63 Pulse Oximetry 96 96 96 Oxygen Delivery Method Room Air Room Air Room Air 04/05/23 15:11 Temperature Pulse Rate 91 Respiratory Rate 18 Blood Pressure 171/74 H Pulse Oximetry Oxygen Delivery Method BMI result Body Mass Index 21.6 Labs 03/24/23 19:23 04/01/23 09:53 Labs: Laboratory Results - last 48 hr 04/03/23 04/03/23 04/04/23 17:30 20:41 08:00 POC Glucose 306 H 299 H 278 H 04/04/23 04/04/23 04/04/23 11:53 17:45 20:34 POC Glucose 236 H 273 H 300 H 04/05/23 04/05/23 08:19 12:29 POC Glucose 335 H 254 H Medications Medications Current Medications Acetaminophen (Acetaminophen 325 Mg Tablet) 650 mg PO Q6H PRN PRN Reason: Headache/Pain Mild Scale (1-3) Last Admin: 04/05/23 11:37 Dose: 650 mg Al Hydroxide/Mg Hydroxide (Magnesium Hydrox/Alum Hydrox 30 Ml Oral.Susp) 30 ml PO Q6H PRN PRN Reason: Heartburn/Nausea Amlodipine Besylate (Amlodipine Besylate 5 Mg Tablet) 5 mg PO BEDTIME ONEL; Protocol Last Admin: 04/04/23 20:46 Dose: 5 mg Ferrous Sulfate (Ferrous Sulfate 324 Mg Tablet.) 324 mg PO DAILY [facility]S [facility]CLUDE 234 BEDS AT THE [facility] Last Admin: 04/05/23 08:53 Dose: 324 mg Hydralazine HCl (Hydralazine Hcl 50 Mg Tablet) 50 mg PO TID [facility]S INCLUDE 234 BEDS AT THE [facility]; Protocol Last Admin: 04/05/23 15:12 Dose: 50 mg Hydroxyzine HCl (Hydroxyzine Hcl 25 Mg Tablet) 25 mg PO Q6H PRN PRN Reason: Anxiety Last Admin: 04/03/23 08:47 Dose: 25 mg Insulin Glargine (Insulin Glargine,Hum.Rec.Anlog 100 Unit/Ml 10 Ml Vial) 28 unit SUBCUT DAILY [facility]S [facility]CLUDE 234 BEDS AT THE [facility] Last Admin: 04/05/23 08:54 Dose: 28 unit Insulin Human Lispro (Insulin Lispro 100 Unit/Ml 3 Ml Vial) 0 unit SUBCUT QIDACHS [facility]S [facility]CLUDE 234 BEDS AT THE [facility]; Protocol Last Admin: 04/05/23 12:35 Dose: 6 unit Levetiracetam (Levetiracetam 250 Mg Tablet) 750 mg PO BID [facility]S INCLUDE 234 BEDS AT THE [facility] Last Admin: 04/05/23 08:53 Dose: 750 mg Lorazepam (Lorazepam 1 Mg Tablet) 1 mg PO BEDTIME COUNTS INCLUDE 234 BEDS AT THE [facility] Last Admin: 04/04/23 20:47 Dose: 1 mg Lorazepam (Lorazepam 0.5 Mg Tablet) 0.5 mg PO BID PRN PRN Reason: anxiety/restlessness Losartan Potassium (Losartan Potassium 50 Mg Tablet) 50 mg PO DAILY [facility]S [facility]CLUDE 234 BEDS AT THE [facility]; Protocol Last Admin: 04/05/23 08:53 Dose: 50 mg Magnesium Hydroxide (Milk Of Magnesia 30 Ml Oral.Susp) 30 ml PO DAILY PRN PRN Reason: Constipation Metformin HCl (Metformin Hcl Er 750 Mg Tab.Er.24h) 750 mg PO BEDTIME [facility]S [facility]CLUDE 234 BEDS AT THE [facility] Last Admin: 04/04/23 20:46 Dose: 750 mg Nicotine Polacrilex (Nicotine Polacrilex 2 Mg Gum) 4 mg BUCCAL Q2H PRN PRN Reason: Nicotine Cravings Olanzapine (Olanzapine 10 Mg Tablet) 10 mg PO BID [facility]S [facility]CLUDE 234 BEDS AT [facility] Last Admin: 04/05/23 08:53 Dose: 10 mg Trazodone HCl (Trazodone Hcl 100 Mg Tablet) 200 mg PO BEDTIME [facility]S [facility]CLUDE 234 BEDS AT THE [facility] Last Admin: 04/04/23 20:46 Dose: 200 mg Trazodone HCl (Trazodone Hcl 50 Mg Tablet) 50 mg PO BEDTIME PRN PRN Reason: continued insomnia Last Admin: 04/03/23 21:14 Dose: 50 mg Allergies Allergies Allergy/AdvReac Type Severity Reaction Status Date / Time haloperidol Allergy Severe Nausea and Verified 03/17/23 14:24 Vomiting lithium Allergy Severe Nausea and Verified 03/17/23 14:24 Vomiting latex Allergy Mild Itching Verified 03/17/23 14:24 Assessment & Plan Assessment & Plan (1) Bipolar disorder: Status: Acute Code(s): F31.9 - Bipolar disorder, unspecified Plan Patient is a 57 year old woman with hx of bipolar d/o who presented to ER via ambulance and section 12 from [employer] police secondary to erratic behavior, initially being unresponsive then throwing herself to the group, hitting, biting and choking herself. Plan: 3 day 15 minute safety checks Continue home medications Hospitalist consult for uncontrolled diabetes and low sodium Surgery consult for directions of wound care of toes 03/27:Patient was seen by surgical today for her toes. Surgical provider stated, Wounds are healing appropriately; sutures removed and clean dressings applied. Continue daily dressing changes with 3x3 or 2x2 gauze at base of 4th toes followed by 3 inch sarah wrap. She can follow up in my office in one month. She is also being followed by hospitalist for hyponatremia, hyperglycemia, and hypertension. Hospitalist reports they will change hydralazine to 50 mg p.o. t.i.d.. If BP remains elevated will add losartan 50 mg q.d. They will continue to follow for now. 03/28: Continue current plans and regimen 03/29: Continue current plans and regimen. Addition to right foot wound care 03/30: Continue current regimen and plans. Increased trazodone to 200 mg. Placed surgical consult for right foot evaluation 03/31: Pt guarded and irritable today. Retracted 3 day with social security benefits interviewer, then signed another one; She refused to meet with T/W. Patient stated, I'm fine. I don't like it here. I want to be left alone . Pt denies SI/HI/VH/AH at this time. Pt was seen for surgical consult; note stated; Right foot noted to have increased discharge. Silver alginate applied yesterday. Left foot healed. Continued daily dressing changed with silver alginate, DSD to right foot. Contine current tx plan. 04/01: Pt continues guarded and irritable today. Patient stated, I hope I get into the rehab. I'm going to keep taking my meds. I just don't want to be here anymore . Pt has been attending groups but keeping to self. continue tx plan. 04/02: Pt presents guarded and irritable today. Patient stated, I'm doing alright. I'm looking forward to leaving here. I want to learn how to do my dressing on my foot . RN was notified to educate patient on this topic. Pt has been attending groups but keeping to self. 3 day is due tomorrow. 04/03: Pt continues irritable today. Reports she does not want to be here but understands it is not medically castro to be discharged d/t her being unable to care for wound. Concerned about belongings; her [facility] were [facility] hospital; now feels less anxious. Retracted 3 day. Social work will continue to look for placement. OT to do MOCA. Continue current tx plan. 04/05/2023: No changes to current plan Reason for continued inpatient stay Substantial Risk for: med/psych decompensation Time Spent With Patient Time: Total time managing care of this patient today ____ minutes.
[2023-04-05 17:32] LABS: Glucose, Whole Blood 263 mg/dL (60-115)
[2023-04-05] MEDS: LORazepam 0.5 MG TABLET PO (17:48)
[2023-04-05 19:55] VITALS: BP 182/82; PULSE 113; RESP 18; TEMP 36.9; O2SAT 97
[2023-04-05 20:50] LABS: Glucose, Whole Blood 242 mg/dL (60-115)
[2023-04-05] MEDS: traZODone HCL 100 MG TABLET 200 MG PO (20:51)
[2023-04-05] MEDS: amLODIPine Besylate 5 MG TABLET PO (20:51)
[2023-04-05] MEDS: metFORMIN HCl ER 750 MG TAB.ER.24H PO (20:51)
[2023-04-05] MEDS: LORazepam 1 MG TABLET PO (20:52)
--- NOTE | 2023-04-06 00:14 | PC.NURSE ---
Raiza was noted to be visible on the unit during the evening. she continues to be easily frustrated when her requests are not fulfilled immediately, or if she is required to briefly delay her request. she was noted to pull at her hair and softly hit herself in the head when she was told she had to wait for staff to be able to help her with her make a phone call. she was easily distracted. continue to monitor for safety, continue Plan of Care
[2023-04-06 01:15] VITALS: BP 170/75; PULSE 104; RESP 18
[2023-04-06 08:13] LABS: Glucose, Whole Blood 283 mg/dL (60-115)
[2023-04-06 08:15] VITALS: BP 143/71; PULSE 98; RESP 17; TEMP 36.4; O2SAT 95
[2023-04-06] MEDS: Acetaminophen 325 MG TABLET 650 MG PO ×3 (09:09→23:56)
[2023-04-06] MEDS: Losartan Potassium 50 MG TABLET PO (09:09)
[2023-04-06] MEDS: Ferrous Sulfate 324 MG TABLET.DR PO (09:10)
[2023-04-06] MEDS: OLANZapine 10 MG TABLET PO ×2 (09:10→20:53)
[2023-04-06] MEDS: levETIRAcetam 250 MG TABLET 750 MG PO ×2 (09:10→20:54)
[2023-04-06] MEDS: hydrALAZINE HCl 50 MG TABLET PO ×3 (09:10→20:53)
[2023-04-06] MEDS: Insulin Lispro 100 UNIT/ML 3 ML VIAL SUBCUT ×3 (09:15→20:51)
[2023-04-06] MEDS: Insulin Glargine,Hum.rec.anlog 100 UNIT/ML 10 ML VIAL 28 UNIT SUBCUT (09:16)
--- NOTE | 2023-04-06 09:35 | P.PNPSI_ITS ---
Subjective Subjective Date of Service: 04/06/23 Reason For Visit: Disorganized and dangerous behavior Subjective Notes: 3 Day Interim History: Reviewed in team and . Patient presents irritable and guarded during 1:1. Observed attending groups. When OT attempted to conduct MOCA; pt was unable to tolerate questioning and starting rocking back and forth stating I don't know ; when she was instructed to take a deep breath, she was then able to answer some questions. T/W and met with patient in the afternoon to assess patient's insight into medical/psychiatric issues; pt was able to express that she would be interested in going to an assisted living housing. Pt stated, I hate people here, I just want to leave. I know I have no where to go . Medication Compliance: Yes Side effects from medications: No Attending Groups: Yes Review of Systems Constitutional: Reports as per HPI Eyes: Reports as per HPI Reports as per HPI Cardiovascular: Reports as per HPI Respiratory: Reports as per HPI Gastrointestinal: Reports as per HPI Genitourinary: Reports as per HPI Musculoskeletal: Reports as per HPI Skin/Breast: Reports as per HPI Reports as per HPI Psychiatric: Reports as per HPI Endocrine: Reports as per HPI Hematologic/Lymphatic: Reports as per HPI Allergic/Immunologic: Reports as per HPI Mental Status Exam Mental Status Exam Narrative: Pt is alert and oriented; behavior is irritable and guarded; dressed in casual attire; mood is described as fine ; eye contact appropriate; Speech is normal rate, volume and prosody and not pressured; no psychomotor agitation/retardation present; thought process is organized; Thought content is on discharge; otherwise pertinent to relevant topics and without any delusional content, paranoid ideations or grandiosity; denies SI/HI. There is no evidence of perceptual disturbance. Patients insight and judgment are poor. Diagnostics Vital Signs (24Hr): Vital Signs - 24 hr 04/05/23 13:55 04/05/23 15:11 04/05/23 19:55 Temperature 97.6 F 98.4 F Pulse Rate 101 H 91 113 H Respiratory Rate 20 18 18 Blood Pressure 133/63 171/74 H 182/82 H Pulse Oximetry 96 97 Oxygen Delivery Method Room Air Room Air 04/06/23 01:15 Temperature Pulse Rate 104 H Respiratory Rate 18 Blood Pressure 170/75 H Pulse Oximetry Oxygen Delivery Method BMI result Body Mass Index 21.6 Labs 04/06/23 11:24 04/06/23 11:24 Labs: Laboratory Results - last 48 hr 04/04/23 04/04/23 04/04/23 11:53 17:45 20:34 POC Glucose 236 H 273 H 300 H 04/05/23 04/05/23 04/05/23 08:19 12:29 17:27 POC Glucose 335 H 254 H 263 H 04/05/23 04/06/23 20:35 08:03 POC Glucose 242 H 283 H Medications Medications Current Medications Acetaminophen (Acetaminophen 325 Mg Tablet) 650 mg PO Q6H PRN PRN Reason: Headache/Pain Mild Scale (1-3) Last Admin: 04/06/23 09:09 Dose: 650 mg Al Hydroxide/Mg Hydroxide (Magnesium Hydrox/Alum Hydrox 30 Ml Oral.Susp) 30 ml PO Q6H PRN PRN Reason: Heartburn/Nausea Amlodipine Besylate (Amlodipine Besylate 5 Mg Tablet) 5 mg PO BEDTIME [facility]; Protocol Last Admin: 04/05/23 20:51 Dose: 5 mg Ferrous Sulfate (Ferrous Sulfate 324 Mg Tablet.Dr) 324 mg PO DAILY [facility] Last Admin: 04/06/23 09:10 Dose: 324 mg Hydralazine HCl (Hydralazine Hcl 50 Mg Tablet) 50 mg PO TID [facility]; Protocol Last Admin: 04/06/23 09:10 Dose: 50 mg Hydroxyzine HCl (Hydroxyzine Hcl 25 Mg Tablet) 25 mg PO Q6H PRN PRN Reason: Anxiety Last Admin: 04/03/23 08:47 Dose: 25 mg Insulin Glargine (Insulin Glargine,Hum.Rec.Anlog 100 Unit/Ml 10 Ml Vial) 28 unit SUBCUT DAILY [facility] Last Admin: 04/06/23 09:16 Dose: 28 unit Insulin Human Lispro (Insulin Lispro 100 Unit/Ml 3 Ml Vial) 0 unit SUBCUT QIDACHS [facility]; Protocol Last Admin: 04/06/23 09:15 Dose: 6 unit Levetiracetam (Levetiracetam 250 Mg Tablet) 750 mg PO BID [facility] Last Admin: 04/06/23 09:10 Dose: 750 mg Lorazepam (Lorazepam 1 Mg Tablet) 1 mg PO BEDTIME [facility] Last Admin: 04/05/23 20:52 Dose: 1 mg Lorazepam (Lorazepam 0.5 Mg Tablet) 0.5 mg PO BID PRN PRN Reason: anxiety/restlessness Last Admin: 04/05/23 17:48 Dose: 0.5 mg Losartan Potassium (Losartan Potassium 50 Mg Tablet) 50 mg PO DAILY [facility]; Protocol Last Admin: 04/06/23 09:09 Dose: 50 mg Magnesium Hydroxide (Milk Of Magnesia 30 Ml Oral.Susp) 30 ml PO DAILY PRN PRN Reason: Constipation Metformin HCl (Metformin Hcl Er 750 Mg Tab.Er.24h) 750 mg PO BEDTIME [facility] Last Admin: 04/05/23 20:51 Dose: 750 mg Nicotine Polacrilex (Nicotine Polacrilex 2 Mg Gum) 4 mg BUCCAL Q2H PRN PRN Reason: Nicotine Cravings Olanzapine (Olanzapine 10 Mg Tablet) 10 mg PO BID [facility] Last Admin: 04/06/23 09:10 Dose: 10 mg Trazodone HCl (Trazodone Hcl 100 Mg Tablet) 200 mg PO BEDTIME [facility] Last Admin: 04/05/23 20:51 Dose: 200 mg Trazodone HCl (Trazodone Hcl 50 Mg Tablet) 50 mg PO BEDTIME PRN PRN Reason: continued insomnia Last Admin: 04/03/23 21:14 Dose: 50 mg Allergies Allergies Allergy/AdvReac Type Severity Reaction Status Date / Time haloperidol Allergy Severe Nausea and Verified 03/17/23 14:24 Vomiting lithium Allergy Severe Nausea and Verified 03/17/23 14:24 Vomiting latex Allergy Mild Itching Verified 03/17/23 14:24 Assessment & Plan Assessment & Plan (1) Bipolar disorder: Status: Acute Code(s): F31.9 - Bipolar disorder, unspecified Plan Patient is a 57 year old woman with hx of bipolar d/o who presented to ER via ambulance and section [address] from [employer] police secondary to erratic behavior, initially being unresponsive then throwing herself to the group, hitting, biting and choking herself. Plan: 3 day 15 minute safety checks Continue home medications Hospitalist consult for uncontrolled diabetes and low sodium Surgery consult for directions of wound care of toes 03/27:Patient was seen by surgical today for her toes. Surgical provider stated, Wounds are healing appropriately; sutures removed and clean dressings applied. Continue daily dressing changes with 3x3 or 2x2 gauze at base of 4th toes followed by 3 inch sarah wrap. She can follow up in my office in one month. She is also being followed by hospitalist for hyponatremia, hyperglycemia, and hypertension. Hospitalist reports they will change hydralazine to 50 mg p.o. t.i.d.. If BP remains elevated will add losartan 50 mg q.d. They will continue to follow for now. 03/28: Continue current plans and regimen 03/29: Continue current plans and regimen. Addition to right foot wound care 03/30: Continue current regimen and plans. Increased trazodone to 200 mg. Placed surgical consult for right foot evaluation 03/31: Pt guarded and irritable today. Retracted 3 day with social sciences department chair, then signed another one; She refused to meet with T/W. Patient stated, I'm fine. I don't like it here. I want to be left alone . Pt denies SI/HI/VH/AH at this time. Pt was seen for surgical consult; note stated; Right foot noted to have increased discharge. Silver alginate applied yesterday. Left foot healed. Continued daily dressing changed with silver alginate, DSD to right foot. Contine current tx plan. 04/01: Pt continues guarded and irritable today. Patient stated, I hope I get into the rehab. I'm going to keep taking my meds. I just don't want to be here anymore . Pt has been attending groups but keeping to self. continue tx plan. 04/02: Pt presents guarded and irritable today. Patient stated, I'm doing alright. I'm looking forward to leaving here. I want to learn how to do my dressing on my foot . RN was notified to educate patient on this topic. Pt has been attending groups but keeping to self. 3 day is due tomorrow. 04/03: Pt continues irritable today. Reports she does not want to be here but understands it is not medically castro to be discharged d/t her being unable to care for wound. Concerned about belongings; her belongings from [facility] were brought to hospital; now feels less anxious. Retracted 3 day. Social work will continue to look for placement. OT to do MOCA. Continue current tx plan. 04/05: No changes to current plan 04/06: Observed attending groups. When OT attempted to conduct MOCA; pt was unable to tolerate questioning and starting rocking back and forth stating I don't know ; when she was instructed to take a deep breath, she was then able to answer some questions. T/W and met with patient in the afternoon to assess patient's insight into medical/psychiatric issues; pt was able to express that she would be interested in going to an assisted living housing. Pt stated, I hate people here, I just want to leave. I know I have no where to go . Continue current tx plan. Hospitalist consult placed for continued HTN, elevated blood sugars and possible toe infection. Patient educated on: diagnosis, medication risk/benefits and therapeutic strategies Informed Consent: understands and further education needed Reason for continued inpatient stay Substantial Risk for: med/psych decompensation Time Spent With Patient Time: Total time managing care of this patient today _30___ minutes.
[2023-04-06 11:42] LABS: MANUAL DIFF FLAG NO
[2023-04-06 11:50] LABS: Basophils Percent Auto 0.4 % (0-2); Eosinophils Absolute Auto 0.2 X10*3/uL (0.0-0.4); Eosinophils Percent Auto 1.5 % (0-4); Hematocrit 29.3 % (37.0-47.0); Hemoglobin 9.8 g/dl (12.0-16.0); Imm Gran Abs Auto 0.05 X10*3/uL (0.00-0.03); Imm Gran Pct Auto 0.5 % (0.0-0.4); Lymphocytes Absolute Auto 1.8 X10*3/uL (1.2-4.9); Lymphocytes Percent Auto 17.2 % (20-40); Mean Corpuscular HGB Conc 33.4 g/dl (31.0-35.0); Mean Corpuscular Volume 86.7 fL (80.0-98.0); Mean Platelet Volume 8.9 fL (9.4-12.3); Monocytes Absolute Auto 0.7 X10*3/uL (0.1-1.2); Monocytes Percent Auto 6.3 % (2-11); Neutrophils Absolute Auto 7.9 x10*3/uL (2.0-8.3); Neutrophils Percent Auto 74.1 % (45-73); Platelet Count 373 X10*3/uL (160-400); Red Blood Count 3.38 X10*6/uL (4.20-5.50); Red Cell Distribution Width 14.6 % (11.0-16.0); White Blood Count 10.6 X10*3/uL (4.8-10.8)
[2023-04-06 11:59] LABS: Anion Gap 12 (12-20); Blood Urea Nitrogen 19 mg/dL (9-16); Calcium 9.4 mg/dL (8.4-10.2); Carbon Dioxide 25 mmol/L (22-29); Chloride 101 mmol/L (96-108); Creatinine Clr Calc Pharmacy 86.8; Estimated Glomerular Filt Rate > 60; Glucose Random 175 mg/dL (60-115); Potassium 4.7 mmol/L (3.3-5.1); Sodium 133 mmol/L (135-145)
[2023-04-06 12:09] LABS: Glucose, Whole Blood 147 mg/dL (60-115)
[2023-04-06 14:23] VITALS: BP 165/72; PULSE 67
[2023-04-06 17:08] LABS: Glucose, Whole Blood 317 mg/dL (60-115)
--- NOTE | 2023-04-06 18:37 | PM.EVENT ---
Event Note Date of Service: 04/06/23 Event Note: Pt seen and examined. Consult placed for possible right 4th toe amputation site infection. She underwent amputation of the right 4th toe on 03/06 due to osteomyelitis. Was transferred to psychiatry. General surgery has been following patient while on M3. There has been increased purulent drainage with foul odor despite use of silver alginate dressings and DSD to the right foot as recommended by General surgery. The patient denies any significant pains. She has been walking around in hospital socks without shoes. She has been afebrile, no leukocytosis. On exam, wound does appear clean though there is purulent drainage with foul odor noted on dressing. Will order doxycycline 100mg BID and keflex 500mg q6h x7 days for empiric coverage. Continue with silver alginate dressings per general surgery. Consult placed to general surgery for further evaluation and management. Consult also placed for hyperglycemia. The patient is noncompliant with diabetic diet as ordered and as a result has been primarily hyperglycemic though has also had normal glucose readings as well. She continues on 28 units Lantus daily, Humalog on sliding scale, metformin 750 mg at bedtime. Will add glipizide 5 mg b.i.d. with meals. Continue other medications as prescribed. Encourage patient compliance with diabetic diet. Further medication adjustment with her noncompliance, puts patient at risk for hypoglycemia. Patient's blood pressure is also again uncontrolled. Patient is observed to be frequently agitated. Would recommend checking blood pressures when patient is calm if possible. In the meantime, will increase amlodipine to 10 mg daily and continue losartan 50 mg and hydralazine 50 mg t.i.d. will check renal duplex to rule out renal artery stenosis as well. Patient will need to be NPO after midnight prior to this procedure and once procedure is completed, can resume diet. Thank you for this consult, will continue following for results Time Spent With Patient Time: Total time managing care of this patient today ____ minutes.
[2023-04-06] MEDS: cephALEXin 500 MG CAPSULE PO (18:56)
[2023-04-06] MEDS: glipiZIDE 5 MG TABLET PO (18:58)
--- NOTE | 2023-04-06 19:23 | PC.NURSE ---
Patient seen Hospitalist per consult request by Dr Dallas. Patient's right 4th to s/p amputation site was assessed by medical and new orders received. See hospitalist consult for details. Patient dressing reapplied by this writer technical publications without issues. Surgical boot ordered and pending. Patient received first dose of Keflex with no s/s of reaction. Patient ate a hamburg for dinner and received her sliding scale insulin as ordered. She denies s/s of hypo/hyperglycemia. Started glipizide as ordered. Patient encourage to eat snack tonight and report if she has any symptoms of diabetes. Patient is to be NPO after midnight and to F/U with surgeon. Patient notified of above and voiced no concerns, appears stable at this time.
[2023-04-06 20:00] VITALS: BP 158/70; PULSE 113; RESP 18; TEMP 36.7; O2SAT 97
[2023-04-06 20:44] LABS: Glucose, Whole Blood 260 mg/dL (60-115)
[2023-04-06] MEDS: amLODIPine Besylate 10 MG TABLET PO (20:53)
[2023-04-06] MEDS: metFORMIN HCl ER 750 MG TAB.ER.24H PO (20:53)
[2023-04-06] MEDS: traZODone HCL 100 MG TABLET 200 MG PO (20:53)
[2023-04-06] MEDS: LORazepam 1 MG TABLET PO (20:54)
[2023-04-06] MEDS: Doxycycline Monohydrate 100 MG CAPSULE PO (20:54)
[2023-04-07] VITALS: BP 147/69; PULSE 109; RESP 18; TEMP 36.4; O2SAT 94
--- NOTE | 2023-04-07 02:01 | PC.NURSE ---
Raiza was noted to be visible in the evening her mood is labile she is tearful whenever needs are not immediately satisfied. she was made aware that she is to be NPO after midnight for a potential procedure in the morning. she has come several times since midnight to request fluids and then cries or motions to hit her head when reminded that she has the potential for a procedure in the morning. Well then I'm fucking leaving AMA you can't keep me here patient reassured and redirected without further incident. will continue to monitor for safety, maintain NPO status, continue Plan of Care
[2023-04-07 07:00] VITALS: BP 123/57; PULSE 93; RESP 16; TEMP 36.8; O2SAT 97
[2023-04-07] MEDS: cephALEXin 500 MG CAPSULE PO ×4 (07:01→19:07)
--- NOTE | 2023-04-07 07:24 | PC.NURSE ---
Raiza brought to ultrasound for procedure at 0700
--- NOTE | 2023-04-07 08:17 | P.PNGS_ITS ---
Subjective Subjective Date of Service: 04/07/23 Interval history: Patient denies foot pain but does not an odor from the right foot. Reports left foot well healed. Physical Exam 2 Vital Signs: Vital Signs: Last Vital Signs Temp 98.3 F 04/07/23 07:00 Pulse 93 04/07/23 07:00 Resp 16 04/07/23 07:00 BP 123/57 L 04/07/23 07:00 Pulse Ox 97 04/07/23 07:00 O2 Del Method Room Air 04/07/23 07:00 BMI result Body Mass Index 21.6 Const: General: comfortable Nutritional Appearance: well nourished O rientation/consciousness: patient oriented x3 Limitations: no limitations Resp: Effort & Inspection: normal respiratory effort Neuro: General: patient oriented x3 Extrem: Other: right foot dressings changed. Small amount of non-viable tissue noted at the wound base, excised with a scissors, 0.5 x 0.5 cm area of subcutaneous tissue. No erythema, no skin necrosis, no abscess. Clean dressings including, silver alginate, 3 x 3 gauze and 3 inch sarah applied. Left foot examined, well healed without ulceration. Objective Data Active Medications Acetaminophen (Acetaminophen 325 Mg Tablet) 650 mg PO Q6H PRN PRN Reason: Headache/Pain Mild Scale (1-3) Last Admin: 04/06/23 23:56 Dose: 650 mg Documented By: TWIN Al Hydroxide/Mg Hydroxide (Magnesium Hydrox/Alum Hydrox 30 Ml Oral.Susp) 30 ml PO Q6H PRN PRN Reason: Heartburn/Nausea Amlodipine Besylate (Amlodipine Besylate 10 Mg Tablet) 10 mg PO BEDTIME [facility]; Protocol Last Admin: 04/06/23 20:53 Dose: 10 mg Documented By: TWIN Cephalexin HCl (Cephalexin 500 Mg Capsule) 500 mg PO Q6H [facility] Last Admin: 04/07/23 07:01 Dose: 500 mg Documented By: TWIN Doxycycline Monohydrate (Doxycycline Monohydrate 100 Mg Capsule) 100 mg PO Q12H [facility] Last Admin: 04/06/23 20:54 Dose: 100 mg Documented By: TWIN Ferrous Sulfate (Ferrous Sulfate 324 Mg Tablet.) 324 mg PO DAILY [facility] Last Admin: 04/06/23 09:10 Dose: 324 mg Documented By: CRYS Glipizide (Glipizide 5 Mg Tablet) 5 mg PO BIDWM [facility] Last Admin: 04/06/23 18:58 Dose: 5 mg Documented By: CRYS Hydralazine HCl (Hydralazine Hcl 50 Mg Tablet) 50 mg PO TID [facility]; Protocol Last Admin: 04/06/23 20:53 Dose: 50 mg Documented By: TWIN Hydroxyzine HCl (Hydroxyzine Hcl 25 Mg Tablet) 25 mg PO Q6H PRN PRN Reason: Anxiety Last Admin: 04/03/23 08:47 Dose: 25 mg Documented By: DAMEON Insulin Glargine (Insulin Glargine,Hum.Rec.Anlog 100 Unit/Ml 10 Ml Vial) 28 unit SUBCUT DAILY [facility] Last Admin: 04/06/23 09:16 Dose: 28 unit Documented By: CRYS Insulin Human Lispro (Insulin Lispro 100 Unit/Ml 3 Ml Vial) 0 unit SUBCUT QIDACHS [facility]; Protocol Last Admin: 04/06/23 20:51 Dose: 6 unit Documented By: TWIN Levetiracetam (Levetiracetam 250 Mg Tablet) 750 mg PO BID [facility] Last Admin: 04/06/23 20:54 Dose: 750 mg Documented By: TWIN Lorazepam (Lorazepam 1 Mg Tablet) 1 mg PO BEDTIME [facility] Last Admin: 04/06/23 20:54 Dose: 1 mg Documented By: TWIN Lorazepam (Lorazepam 0.5 Mg Tablet) 0.5 mg PO BID PRN PRN Reason: anxiety/restlessness Last Admin: 04/05/23 17:48 Dose: 0.5 mg Documented By: VASILIY Losartan Potassium (Losartan Potassium 50 Mg Tablet) 50 mg PO DAILY [facility]; Protocol Magnesium Hydroxide (Milk Of Magnesia 30 Ml Oral.Susp) 30 ml PO DAILY PRN PRN Reason: Constipation Metformin HCl (Metformin Hcl Er 750 Mg Tab.Er.24h) 750 mg PO BEDTIME [facility] Last Admin: 04/06/23 20:53 Dose: 750 mg Documented By: TWIN Nicotine Polacrilex (Nicotine Polacrilex 2 Mg Gum) 4 mg BUCCAL Q2H PRN PRN Reason: Nicotine Cravings Olanzapine (Olanzapine 10 Mg Tablet) 10 mg PO BID [facility] Last Admin: 04/06/23 20:53 Dose: 10 mg Documented By: TWIN Trazodone HCl (Trazodone Hcl 100 Mg Tablet) 200 mg PO BEDTIME [facility] Last Admin: 04/06/23 20:53 Dose: 200 mg Documented By: TWIN Trazodone HCl (Trazodone Hcl 50 Mg Tablet) 50 mg PO BEDTIME PRN PRN Reason: continued insomnia Last Admin: 04/03/23 21:14 Dose: 50 mg Documented By: STEPHANIA Labs 04/06/23 11:24 04/06/23 11:24 Labs: Laboratory Results - last 24 hr 04/06/23 04/06/23 04/06/23 11:24 12:05 17:04 MCV 86.7 MCH 29.0 MCHC 33.4 RDW 14.6 Plt Count 373 D MPV 8.9 L Immature Gran % (Auto) 0.5 H Neut % (Auto) 74.1 H Lymph % (Auto) 17.2 L Fisher % (Auto) 6.3 Eos % (Auto) 1.5 Baso % (Auto) 0.4 Lymph # (Auto) 1.8 Fisher # (Auto) 0.7 Eos # (Auto) 0.2 Baso # (Auto) 0.0 Abs Immat Gran (auto) 0.05 H Absolute Neuts (auto) 7.9 Absolute Nucleated RBC 0.000 Nucleated RBC % (auto) 0.0 Anion Gap 12 Estim Creat Clear Calc 86.8 Estimated GFR > 60 POC Glucose 147 H 317 H Random Glucose 175 H Calcium 9.4 D 04/06/23 20:14 MCV MCH MCHC RDW Plt Count MPV Immature Gran % (Auto) Neut % (Auto) Lymph % (Auto) Fisher % (Auto) Eos % (Auto) Baso % (Auto) Lymph # (Auto) Fisher # (Auto) Eos # (Auto) Baso # (Auto) Abs Immat Gran (auto) Absolute Neuts (auto) Absolute Nucleated RBC Nucleated RBC % (auto) Anion Gap Estim Creat Clear Calc Estimated GFR POC Glucose 260 H Random Glucose Calcium Procedures Date of Service Date of Service: 04/07/23 Progress Note: A&P Assessment and plan (1) Osteomyelitis of toe of left foot: Status: Acute Plan Right foot wound is slowly improving with granulation noted at base. Small amount of nonviable tissue was removed today and wounds redressed with silver alginate. Recommend continuing the current dressing changes with silver alginate and DSD. Please call for new concerns. Time Spent With Patient Time: Total time managing care of this patient today ____ minutes. Quality Stroke Does the patient have a stroke diagnosis?: No VTE Prior VTE?: No VTE Risk Level:: Surgical - low VTE Device Contraindication: Treatment Not Indicated VTE Drug Contraindication: Treatment Not Indicated
[2023-04-07 08:50] VITALS: BP 167/77; PULSE 99; RESP 16; TEMP 36.5; O2SAT 99
[2023-04-07 08:57] LABS: Glucose, Whole Blood 256 mg/dL (60-115)
[2023-04-07] MEDS: Insulin Lispro 100 UNIT/ML 3 ML VIAL SUBCUT ×4 (09:09→20:33)
[2023-04-07] MEDS: Insulin Glargine,Hum.rec.anlog 100 UNIT/ML 10 ML VIAL 28 UNIT SUBCUT (09:10)
[2023-04-07] MEDS: glipiZIDE 5 MG TABLET PO ×2 (09:14→17:51)
[2023-04-07] MEDS: Losartan Potassium 50 MG TABLET PO (09:14)
[2023-04-07] MEDS: Doxycycline Monohydrate 100 MG CAPSULE PO ×2 (09:14→20:34)
[2023-04-07] MEDS: hydrALAZINE HCl 50 MG TABLET PO ×3 (09:14→20:34)
[2023-04-07] MEDS: OLANZapine 10 MG TABLET PO ×2 (09:14→20:34)
[2023-04-07] MEDS: levETIRAcetam 250 MG TABLET 750 MG PO ×2 (09:14→20:33)
[2023-04-07] MEDS: Ferrous Sulfate 324 MG TABLET.DR PO (09:17)
--- NOTE | 2023-04-07 09:34 | P.PNPSI_ITS ---
Subjective Subjective Date of Service: 04/07/23 Reason For Visit: Disorganized and dangerous behavior Subjective Notes: 3 Day Interim History: Reviewed in team and . Patient presents irritable and guarded during 1:1. Patient reports she is hoping to get into the program. I don't like the idea of them getting all my money but it's better than being homeless . Medication Compliance: Yes Side effects from medications: No Attending Groups: Yes Review of Systems Review of Systems unremarkable Yes all other systems are reviewed and are negative, Unobtainable due to mental condition and Unobtainable due to mental status Constitutional: Reports as per HPI Eyes: Reports as per HPI Reports as per HPI Cardiovascular: Reports as per HPI Respiratory: Reports as per HPI Gastrointestinal: Reports as per HPI Musculoskeletal: Reports as per HPI Skin/Breast: Reports as per HPI Reports as per HPI Psychiatric: Reports as per HPI Endocrine: Reports as per HPI Hematologic/Lymphatic: Reports as per HPI Allergic/Immunologic: Reports as per HPI Mental Status Exam Mental Status Exam Narrative: Pt is alert and oriented; behavior is irritable and guarded; dressed in casual attire; mood is described as fine ; eye contact appropriate; Speech is normal rate, volume and prosody and not pressured; no psychomotor agitation/retardation present; thought process is organized; Thought content is on discharge; otherwise pertinent to relevant topics and without any delusional content, paranoid ideations or grandiosity; denies SI/HI. There is no evidence of perceptual disturbance. Patients insight and judgment are poor. Diagnostics Vital Signs (24Hr): Vital Signs - 24 hr 04/06/23 14:23 04/06/23 20:00 04/07/23 00:00 Temperature 98.1 F 97.6 F Pulse Rate 67 113 H 109 H Respiratory Rate 18 18 Blood Pressure 165/72 H 158/70 H 147/69 H Pulse Oximetry 97 94 Oxygen Delivery Method Room Air Room Air 04/07/23 07:00 Temperature 98.3 F Pulse Rate 93 Respiratory Rate 16 Blood Pressure 123/57 L Pulse Oximetry 97 Oxygen Delivery Method Room Air BMI result Body Mass Index 21.6 Labs 04/06/23 11:24 04/06/23 11:24 Labs: Laboratory Results - last 48 hr 04/05/23 04/05/23 04/05/23 12:29 17:27 20:35 WBC RBC Hgb Hct MCV MCH MCHC RDW Plt Count MPV Immature Gran % (Auto) Neut % (Auto) Lymph % (Auto) [place] % (Auto) Eos % (Auto) Baso % (Auto) Lymph # (Auto) [place] # (Auto) Eos # (Auto) Baso # (Auto) Abs Immat Gran (auto) Absolute Neuts (auto) Absolute Nucleated RBC Nucleated RBC % (auto) Sodium Potassium Chloride Carbon Dioxide Anion Gap BUN Creatinine Estim Creat Clear Calc Estimated GFR POC Glucose 254 H 263 H 242 H Random Glucose Calcium 04/06/23 04/06/23 04/06/23 08:03 11:24 12:05 WBC 10.6 RBC 3.38 L Hgb 9.8 L Hct 29.3 L MCV 86.7 MCH 29.0 MCHC 33.4 RDW 14.6 Plt Count 373 D MPV 8.9 L Immature Gran % (Auto) 0.5 H Neut % (Auto) 74.1 H Lymph % (Auto) 17.2 L [place] % (Auto) 6.3 Eos % (Auto) 1.5 Baso % (Auto) 0.4 Lymph # (Auto) 1.8 [place] # (Auto) 0.7 Eos # (Auto) 0.2 Baso # (Auto) 0.0 Abs Immat Gran (auto) 0.05 H Absolute Neuts (auto) 7.9 Absolute Nucleated RBC 0.000 Nucleated RBC % (auto) 0.0 Sodium 133 L Potassium 4.7 Chloride 101 Carbon Dioxide 25 Anion Gap 12 BUN 19 H Creatinine 0.61 Estim Creat Clear Calc 86.8 Estimated GFR > 60 POC Glucose 283 H 147 H Random Glucose 175 H Calcium 9.4 D 04/06/23 04/06/23 04/07/23 17:04 20:14 08:54 WBC RBC Hgb Hct MCV MCH MCHC RDW Plt Count MPV Immature Gran % (Auto) Neut % (Auto) Lymph % (Auto) [place] % (Auto) Eos % (Auto) Baso % (Auto) Lymph # (Auto) [place] # (Auto) Eos # (Auto) Baso # (Auto) Abs Immat Gran (auto) Absolute Neuts (auto) Absolute Nucleated RBC Nucleated RBC % (auto) Sodium Potassium Chloride Carbon Dioxide Anion Gap BUN Creatinine Estim Creat Clear Calc Estimated GFR POC Glucose 317 H 260 H 256 H Random Glucose Calcium Medications Medications Current Medications Acetaminophen (Acetaminophen 325 Mg Tablet) 650 mg PO Q6H PRN PRN Reason: Headache/Pain Mild Scale (1-3) Last Admin: 04/06/23 23:56 Dose: 650 mg Al Hydroxide/Mg Hydroxide (Magnesium Hydrox/Alum Hydrox 30 Ml Oral.Susp) 30 ml PO Q6H PRN PRN Reason: Heartburn/Nausea Amlodipine Besylate (Amlodipine Besylate 10 Mg Tablet) 10 mg PO BEDTIME [facility]; Protocol Last Admin: 04/06/23 20:53 Dose: 10 mg Cephalexin HCl (Cephalexin 500 Mg Capsule) 500 mg PO Q6H [facility] Last Admin: 04/07/23 07:01 Dose: 500 mg Doxycycline Monohydrate (Doxycycline Monohydrate 100 Mg Capsule) 100 mg PO Q12H [facility] Last Admin: 04/07/23 09:14 Dose: 100 mg Ferrous Sulfate (Ferrous Sulfate 324 Mg Tablet.Dr) 324 mg PO DAILY [facility] Last Admin: 04/07/23 09:17 Dose: 324 mg Glipizide (Glipizide 5 Mg Tablet) 5 mg PO BIDWM [facility] Last Admin: 04/07/23 09:14 Dose: 5 mg Hydralazine HCl (Hydralazine Hcl 50 Mg Tablet) 50 mg PO TID [facility]; Protocol Last Admin: 04/07/23 09:14 Dose: 50 mg Hydroxyzine HCl (Hydroxyzine Hcl 25 Mg Tablet) 25 mg PO Q6H PRN PRN Reason: Anxiety Last Admin: 04/03/23 08:47 Dose: 25 mg Insulin Glargine (Insulin Glargine,Hum.Rec.Anlog 100 Unit/Ml 10 Ml Vial) 28 unit SUBCUT DAILY [facility] Last Admin: 04/07/23 09:10 Dose: 28 unit Insulin Human Lispro (Insulin Lispro 100 Unit/Ml 3 Ml Vial) 0 unit SUBCUT QIDACHS [facility]; Protocol Last Admin: 04/07/23 09:09 Dose: 6 unit Levetiracetam (Levetiracetam 250 Mg Tablet) 750 mg PO BID [facility] Last Admin: 04/07/23 09:14 Dose: 750 mg Lorazepam (Lorazepam 1 Mg Tablet) 1 mg PO BEDTIME [facility] Last Admin: 04/06/23 20:54 Dose: 1 mg Lorazepam (Lorazepam 0.5 Mg Tablet) 0.5 mg PO BID PRN PRN Reason: anxiety/restlessness Last Admin: 04/05/23 17:48 Dose: 0.5 mg Losartan Potassium (Losartan Potassium 50 Mg Tablet) 50 mg PO DAILY [facility]; Protocol Last Admin: 04/07/23 09:14 Dose: 50 mg Magnesium Hydroxide (Milk Of Magnesia 30 Ml Oral.Susp) 30 ml PO DAILY PRN PRN Reason: Constipation Metformin HCl (Metformin Hcl Er 750 Mg Tab.Er.24h) 750 mg PO BEDTIME [facility] Last Admin: 04/06/23 20:53 Dose: 750 mg Nicotine Polacrilex (Nicotine Polacrilex 2 Mg Gum) 4 mg BUCCAL Q2H PRN PRN Reason: Nicotine Cravings Olanzapine (Olanzapine 10 Mg Tablet) 10 mg PO BID [facility] Last Admin: 04/07/23 09:14 Dose: 10 mg Trazodone HCl (Trazodone Hcl 100 Mg Tablet) 200 mg PO BEDTIME [facility] Last Admin: 04/06/23 20:53 Dose: 200 mg Trazodone HCl (Trazodone Hcl 50 Mg Tablet) 50 mg PO BEDTIME PRN PRN Reason: continued insomnia Last Admin: 04/03/23 21:14 Dose: 50 mg Allergies Allergies Allergy/AdvReac Type Severity Reaction Status Date / Time haloperidol Allergy Severe Nausea and Verified 03/17/23 14:24 Vomiting lithium Allergy Severe Nausea and Verified 03/17/23 14:24 Vomiting latex Allergy Mild Itching Verified 03/17/23 14:24 Assessment & Plan Assessment & Plan (1) Osteomyelitis of toe of left foot: Status: Acute Code(s): M86.9 - Osteomyelitis, unspecified (2) Bipolar disorder: Status: Acute Code(s): F31.9 - Bipolar disorder, unspecified (3) Seizure disorder, complex partial: Status: Acute Code(s): G40.209 - Localization-related (focal) (partial) symptomatic epilepsy and epileptic syndromes with complex partial seizures, not intractable, without status epilepticus (4) 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 Plan: 3 day 15 minute safety checks Continue home medications Hospitalist consult for uncontrolled diabetes and low sodium Surgery consult for directions of wound care of toes 03/27:Patient was seen by surgical today for her toes. Surgical provider stated, Wounds are healing appropriately; sutures removed and clean dressings applied. Continue daily dressing changes with 3x3 or 2x2 gauze at base of 4th toes followed by 3 inch sarah wrap. She can follow up in my office in one month. She is also being followed by hospitalist for hyponatremia, hyperglycemia, and hypertension. Hospitalist reports they will change hydralazine to 50 mg p.o. t.i.d.. If BP remains elevated will add losartan 50 mg q.d. They will continue to follow for now. 03/28: Continue current plans and regimen 03/29: Continue current plans and regimen. Addition to right foot wound care 03/30: Continue current regimen and plans. Increased trazodone to 200 mg. Placed surgical consult for right foot evaluation 03/31: Pt guarded and irritable today. Retracted 3 day with social studies teacher, then signed another one; She refused to meet with T/W. Patient stated, I'm fine. I don't like it here. I want to be left alone . Pt denies SI/HI/VH/AH at this time. Pt was seen for surgical consult; note stated; Right foot noted to have increased discharge. Silver alginate applied yesterday. Left foot healed. Continued daily dressing changed with silver alginate, DSD to right foot. Contine current tx plan. 04/01: Pt continues guarded and irritable today. Patient stated, I hope I get into the rehab. I'm going to keep taking my meds. I just don't want to be here anymore . Pt has been attending groups but keeping to self. continue tx plan. 04/02: Pt presents guarded and irritable today. Patient stated, I'm doing alright. I'm looking forward to leaving here. I want to learn how to do my dressing on my foot . RN was notified to educate patient on this topic. Pt has been attending groups but keeping to self. 3 day is due tomorrow. 04/03: Pt continues irritable today. Reports she does not want to be here but understands it is not medically castro to be discharged d/t her being unable to care for wound. Concerned about belongings; her belongings from group home were brought to hospital; now feels less anxious. Retracted 3 day. Social work will continue to look for placement. OT to do MOCA. Continue current tx plan. 04/05: No changes to current plan 04/06: Observed attending groups. When OT attempted to conduct MOCA; pt was unable to tolerate questioning and starting rocking back and forth stating I don't know ; when she was instructed to take a deep breath, she was then able to answer some questions. T/W and met with patient in the afternoon to assess patient's insight into medical/psychiatric issues; pt was able to express that she would be interested in going to an assisted living housing. Pt stated, I hate people here, I just want to leave. I know I have no where to go . Continue current tx plan. Hospitalist consult placed for continued HTN, elevated blood sugars and possible toe infection. 04/07: Patient presents irritable and guarded during 1:1. Patient reports she is hoping to get into the program. I don't like the idea of them getting all my money but it's better than being homeless . Pt was seen by hospitalist; see note; medication were adjusted. pt was seen by surgery today for foot; Recommend continuing the current dressing changes with silver alginate and DSD. Health care proxy to be contacted tomorrow; possibly will invoke d/t patients mental status and medical condition. Patient educated on: diagnosis, medication risk/benefits, therapeutic strategies and medical condition Informed Consent: understands and further education needed Reason for continued inpatient stay Substantial Risk for: med/psych decompensation Time Spent With Patient Time: Total time managing care of this patient today _30___ minutes.
[2023-04-07 12:28] LABS: Glucose, Whole Blood 251 mg/dL (60-115)
[2023-04-07] MEDS: LORazepam 0.5 MG TABLET PO (15:06)
[2023-04-07] MEDS: Acetaminophen 325 MG TABLET 650 MG PO (15:51)
[2023-04-07 17:49] LABS: Glucose, Whole Blood 224 mg/dL (60-115)
[2023-04-07 20:15] VITALS: BP 147/69; PULSE 107; TEMP 36.7; O2SAT 95
[2023-04-07 20:26] LABS: Glucose, Whole Blood 282 mg/dL (60-115)
[2023-04-07] MEDS: metFORMIN HCl ER 750 MG TAB.ER.24H PO (20:33)
[2023-04-07] MEDS: amLODIPine Besylate 10 MG TABLET PO (20:34)
[2023-04-07] MEDS: LORazepam 1 MG TABLET PO (20:34)
[2023-04-07] MEDS: traZODone HCL 100 MG TABLET 200 MG PO (20:34)
[2023-04-08 00:15] VITALS: BP 148/74; PULSE 110
[2023-04-08] MEDS: cephALEXin 500 MG CAPSULE PO ×5 (00:16→20:38)
[2023-04-08] MEDS: levETIRAcetam 250 MG TABLET 750 MG PO (08:12)
[2023-04-08] MEDS: Doxycycline Monohydrate 100 MG CAPSULE PO ×2 (08:12→20:38)
[2023-04-08] MEDS: OLANZapine 10 MG TABLET PO ×2 (08:12→20:38)
[2023-04-08] MEDS: Ferrous Sulfate 324 MG TABLET.DR PO (08:12)
[2023-04-08] MEDS: hydrALAZINE HCl 50 MG TABLET PO ×3 (08:12→20:38)
[2023-04-08] MEDS: glipiZIDE 5 MG TABLET PO ×2 (08:13→18:01)
[2023-04-08 08:43] VITALS: BP 156/79; PULSE 104; RESP 18; TEMP 36.9; O2SAT 95
[2023-04-08 08:44] LABS: Creatinine Clr Calc Pharmacy 76.7; Estimated Glomerular Filt Rate > 60
[2023-04-08 08:51] LABS: Glucose, Whole Blood 236 mg/dL (60-115)
[2023-04-08] MEDS: Insulin Glargine,Hum.rec.anlog 100 UNIT/ML 10 ML VIAL 28 UNIT SUBCUT (08:59)
[2023-04-08] MEDS: Insulin Lispro 100 UNIT/ML 3 ML VIAL SUBCUT ×4 (08:59→20:37)
[2023-04-08] MEDS: Losartan Potassium 50 MG TABLET PO (09:09)
[2023-04-08] MEDS: LORazepam 0.5 MG TABLET PO ×2 (09:37→22:21)
--- NOTE | 2023-04-08 09:49 | P.PNPSI_ITS ---
Subjective Subjective Date of Service: 04/08/23 Reason For Visit: Disorganized and dangerous behavior Subjective Notes: 3 Day Interim History: Reviewed in team and . Patient presents irritable and guarded during 1:1. Patient unable to tolerate long conversations, she becomes frustrated, begins to make a whining noise and starts to hit herself in the head and pull her hair. Patient had a interview with admission director of [facility]; per social media intern, pt became easily frustrated, could not recall answers to basic questions and started hitting herself. [facility] denied her admission. conditioning room worker reported informing patient of denial; when T/W discussed it with her later in the afternoon, pt did not recall the conversation with social media intern and stated she did not know she was not accepted at [facility]. Pt stated, I want to leave. I don't care if I go to the streets and . Hospitalist ordered CT scan angio abdomen; pt aware. Medication Compliance: Yes Side effects from medications: No Attending Groups: Yes Review of Systems Review of Systems unremarkable Yes all other systems are reviewed and are negative, Unobtainable due to mental condition and Unobtainable due to mental status Constitutional: Reports as per HPI Eyes: Reports as per HPI Reports as per HPI Cardiovascular: Reports as per HPI Respiratory: Reports as per HPI Gastrointestinal: Reports as per HPI Genitourinary: Reports as per HPI Musculoskeletal: Reports as per HPI Skin/Breast: Reports as per HPI Reports as per HPI Psychiatric: Reports as per HPI Endocrine: Reports as per HPI Hematologic/Lymphatic: Reports as per HPI Allergic/Immunologic: Reports as per HPI Mental Status Exam Mental Status Exam Narrative: Pt is alert and oriented; behavior is irritable and guarded; dressed in casual attire; mood is described as fine ; eye contact appropriate; Speech is normal rate, volume and prosody and not pressured; no psychomotor agitation/retardation present; thought process is organized; Thought content is on discharge; otherwise pertinent to relevant topics and without any delusional content, paranoid ideations or grandiosity; denies SI/HI. There is no evidence of perceptual disturbance. Patients insight and judgment are poor. Diagnostics Vital Signs (24Hr): Vital Signs - 24 hr 04/07/23 20:15 04/08/23 00:15 04/08/23 08:43 Temperature 98.1 F 98.4 F Pulse Rate 107 H 110 H 104 H Respiratory Rate 18 Blood Pressure 147/69 H 148/74 H 156/79 H Pulse Oximetry 95 95 Oxygen Delivery Method Room Air Room Air BMI result Body Mass Index 21.6 Labs 04/06/23 11:24 04/08/23 08:18 Labs: Laboratory Results - last 48 hr 04/06/23 04/06/23 04/06/23 11:24 12:05 17:04 WBC 10.6 RBC 3.38 L Hgb 9.8 L Hct 29.3 L MCV 86.7 MCH 29.0 MCHC 33.4 RDW 14.6 Plt Count 373 D MPV 8.9 L Immature Gran % (Auto) 0.5 H Neut % (Auto) 74.1 H Lymph % (Auto) 17.2 L [place] % (Auto) 6.3 Eos % (Auto) 1.5 Baso % (Auto) 0.4 Lymph # (Auto) 1.8 [place] # (Auto) 0.7 Eos # (Auto) 0.2 Baso # (Auto) 0.0 Abs Immat Gran (auto) 0.05 H Absolute Neuts (auto) 7.9 Absolute Nucleated RBC 0.000 Nucleated RBC % (auto) 0.0 Sodium 133 L Potassium 4.7 Chloride 101 Carbon Dioxide 25 Anion Gap 12 BUN 19 H Creatinine 0.61 Estim Creat Clear Calc 86.8 Estimated GFR > 60 POC Glucose 147 H 317 H Random Glucose 175 H Calcium 9.4 D 04/06/23 04/07/23 04/07/23 20:14 08:54 12:23 WBC RBC Hgb Hct MCV MCH MCHC RDW Plt Count MPV Immature Gran % (Auto) Neut % (Auto) Lymph % (Auto) [place] % (Auto) Eos % (Auto) Baso % (Auto) Lymph # (Auto) [place] # (Auto) Eos # (Auto) Baso # (Auto) Abs Immat Gran (auto) Absolute Neuts (auto) Absolute Nucleated RBC Nucleated RBC % (auto) Sodium Potassium Chloride Carbon Dioxide Anion Gap BUN Creatinine Estim Creat Clear Calc Estimated GFR POC Glucose 260 H 256 H 251 H Random Glucose Calcium 04/07/23 04/07/23 04/08/23 17:44 20:22 08:18 WBC RBC Hgb Hct MCV MCH MCHC RDW Plt Count MPV Immature Gran % (Auto) Neut % (Auto) Lymph % (Auto) [place] % (Auto) Eos % (Auto) Baso % (Auto) Lymph # (Auto) [place] # (Auto) Eos # (Auto) Baso # (Auto) Abs Immat Gran (auto) Absolute Neuts (auto) Absolute Nucleated RBC Nucleated RBC % (auto) Sodium Potassium Chloride Carbon Dioxide Anion Gap BUN Creatinine 0.69 Estim Creat Clear Calc 76.7 Estimated GFR > 60 POC Glucose 224 H 282 H Random Glucose Calcium 04/08/23 08:46 WBC RBC Hgb Hct MCV MCH MCHC RDW Plt Count MPV Immature Gran % (Auto) Neut % (Auto) Lymph % (Auto) [place] % (Auto) Eos % (Auto) Baso % (Auto) Lymph # (Auto) [place] # (Auto) Eos # (Auto) Baso # (Auto) Abs Immat Gran (auto) Absolute Neuts (auto) Absolute Nucleated RBC Nucleated RBC % (auto) Sodium Potassium Chloride Carbon Dioxide Anion Gap BUN Creatinine Estim Creat Clear Calc Estimated GFR POC Glucose 236 H Random Glucose Calcium Imaging Radiology Impressions: ITS Impressions Renal Ultrasound 04/07/23 07:47 IMPRESSION: Increased peak systolic velocity in the mid left renal artery suggestive renal artery stenosis. Follow-up imaging recommended, preferably CTA if normal renal function. Renal Ultrasound 04/07/23 07:47 IMPRESSION: Increased peak systolic velocity in the mid left renal artery suggestive renal artery stenosis. Follow-up imaging recommended, preferably CTA if normal renal function. Medications Medications Current Medications Acetaminophen (Acetaminophen 325 Mg Tablet) 650 mg PO Q6H PRN PRN Reason: Headache/Pain Mild Scale (1-3) Last Admin: 04/07/23 15:51 Dose: 650 mg Al Hydroxide/Mg Hydroxide (Magnesium Hydrox/Alum Hydrox 30 Ml Oral.Susp) 30 ml PO Q6H PRN PRN Reason: Heartburn/Nausea Amlodipine Besylate (Amlodipine Besylate 10 Mg Tablet) 10 mg PO BEDTIME ONEL; Protocol Last Admin: 04/07/23 20:34 Dose: 10 mg Cephalexin HCl (Cephalexin 500 Mg Capsule) 500 mg PO QID ONEL Last Admin: 04/08/23 08:13 Dose: 500 mg Doxycycline Monohydrate (Doxycycline Monohydrate 100 Mg Capsule) 100 mg PO Q12H ONEL Last Admin: 04/08/23 08:12 Dose: 100 mg Ferrous Sulfate (Ferrous Sulfate 324 Mg Tablet.Dr) 324 mg PO DAILY [facility] Last Admin: 04/08/23 08:12 Dose: 324 mg Glipizide (Glipizide 5 Mg Tablet) 5 mg PO BIDWM [facility] Last Admin: 04/08/23 08:13 Dose: 5 mg Hydralazine HCl (Hydralazine Hcl 50 Mg Tablet) 50 mg PO TID [facility]; Protocol Last Admin: 04/08/23 08:12 Dose: 50 mg Hydroxyzine HCl (Hydroxyzine Hcl 25 Mg Tablet) 25 mg PO Q6H PRN PRN Reason: Anxiety Last Admin: 04/03/23 08:47 Dose: 25 mg Insulin Glargine (Insulin Glargine,Hum.Rec.Anlog 100 Unit/Ml 10 Ml Vial) 28 unit SUBCUT DAILY [facility] Last Admin: 04/08/23 08:59 Dose: 28 unit Insulin Human Lispro (Insulin Lispro 100 Unit/Ml 3 Ml Vial) 0 unit SUBCUT QIDACHS [facility]; Protocol Last Admin: 04/08/23 08:59 Dose: 6 unit Levetiracetam (Levetiracetam 250 Mg Tablet) 750 mg PO BID [facility] Last Admin: 04/08/23 08:12 Dose: 750 mg Lorazepam (Lorazepam 1 Mg Tablet) 1 mg PO BEDTIME [facility] Last Admin: 04/07/23 20:34 Dose: 1 mg Lorazepam (Lorazepam 0.5 Mg Tablet) 0.5 mg PO BID PRN PRN Reason: anxiety/restlessness Last Admin: 04/08/23 09:37 Dose: 0.5 mg Losartan Potassium (Losartan Potassium 50 Mg Tablet) 50 mg PO DAILY [facility]; Protocol Last Admin: 04/08/23 09:09 Dose: 50 mg Magnesium Hydroxide (Milk Of Magnesia 30 Ml Oral.Susp) 30 ml PO DAILY PRN PRN Reason: Constipation Metformin HCl (Metformin Hcl Er 750 Mg Tab.Er.24h) 750 mg PO BEDTIME [facility] Last Admin: 04/07/23 20:33 Dose: 750 mg Nicotine Polacrilex (Nicotine Polacrilex 2 Mg Gum) 4 mg BUCCAL Q2H PRN PRN Reason: Nicotine Cravings Olanzapine (Olanzapine 10 Mg Tablet) 10 mg PO BID [facility] Last Admin: 04/08/23 08:12 Dose: 10 mg Trazodone HCl (Trazodone Hcl 100 Mg Tablet) 200 mg PO BEDTIME [facility] Last Admin: 04/07/23 20:34 Dose: 200 mg Trazodone HCl (Trazodone Hcl 50 Mg Tablet) 50 mg PO BEDTIME PRN PRN Reason: continued insomnia Last Admin: 04/03/23 21:14 Dose: 50 mg Allergies Allergies Allergy/AdvReac Type Severity Reaction Status Date / Time haloperidol Allergy Severe Nausea and Verified 03/17/23 14:24 Vomiting lithium Allergy Severe Nausea and Verified 03/17/23 14:24 Vomiting latex Allergy Mild Itching Verified 03/17/23 14:24 Assessment & Plan Assessment & Plan (1) Osteomyelitis of toe of left foot: Status: Acute Code(s): M86.9 - Osteomyelitis, unspecified (2) Bipolar disorder: Status: Acute Code(s): F31.9 - Bipolar disorder, unspecified (3) Seizure disorder, complex partial: Status: Acute Code(s): G40.209 - Localization-related (focal) (partial) symptomatic epilepsy and epileptic syndromes with complex partial seizures, not intractable, without status epilepticus (4) 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 Plan: 3 day 15 minute safety checks Continue home medications Hospitalist consult for uncontrolled diabetes and low sodium Surgery consult for directions of wound care of toes 03/27:Patient was seen by surgical today for her toes. Surgical provider stated, Wounds are healing appropriately; sutures removed and clean dressings applied. Continue daily dressing changes with 3x3 or 2x2 gauze at base of 4th toes followed by 3 inch sarah wrap. She can follow up in my office in one month. She is also being followed by hospitalist for hyponatremia, hyperglycemia, and hypertension. Hospitalist reports they will change hydralazine to 50 mg p.o. t.i.d.. If BP remains elevated will add losartan 50 mg q.d. They will continue to follow for now. 03/28: Continue current plans and regimen 03/29: Continue current plans and regimen. Addition to right foot wound care 03/30: Continue current regimen and plans. Increased trazodone to 200 mg. Placed surgical consult for right foot evaluation 03/31: Pt guarded and irritable today. Retracted 3 day with social media intern, then signed another one; She refused to meet with T/W. Patient stated, I'm fine. I don't like it here. I want to be left alone . Pt denies SI/HI/VH/AH at this time. Pt was seen for surgical consult; note stated; Right foot noted to have increased discharge. Silver alginate applied yesterday. Left foot healed. Continued daily dressing changed with silver alginate, DSD to right foot. Contine current tx plan. 04/01: Pt continues guarded and irritable today. Patient stated, I hope I get into the rehab. I'm going to keep taking my meds. I just don't want to be here anymore . Pt has been attending groups but keeping to self. continue tx plan. 04/02: Pt presents guarded and irritable today. Patient stated, I'm doing alright. I'm looking forward to leaving here. I want to learn how to do my dressing on my foot . RN was notified to educate patient on this topic. Pt has been attending groups but keeping to self. 3 day is due tomorrow. 04/03: Pt continues irritable today. Reports she does not want to be here but understands it is not medically castro to be discharged d/t her being unable to care for wound. Concerned about belongings; her belongings from [facility] were brought to hospital; now feels less anxious. Retracted 3 day. Social work will continue to look for placement. OT to do MOCA. Continue current tx plan. 04/05: No changes to current plan 04/06: Observed attending groups. When OT attempted to conduct MOCA; pt was unable to tolerate questioning and starting rocking back and forth stating I don't know ; when she was instructed to take a deep breath, she was then able to answer some questions. T/W and met with patient in the afternoon to assess patient's insight into medical/psychiatric issues; pt was able to express that she would be interested in going to an assisted living housing. Pt stated, I hate people here, I just want to leave. I know I have no where to go . Continue current tx plan. Hospitalist consult placed for continued HTN, elevated blood sugars and possible toe infection. 04/07: Patient presents irritable and guarded during 1:1. Patient reports she is hoping to get into the program. I don't like the idea of them getting all my money but it's better than being homeless . Pt was seen by hospitalist; see note; medication were adjusted. pt was seen by surgery today for foot; Recommend continuing the current dressing changes with silver alginate and DSD. Health care proxy to be contacted tomorrow; possibly will invoke d/t patients mental status and medical condition. 04/08: Patient unable to tolerate long conversations, she becomes frustrated, begins to make a whining noise and starts to hit herself in the head and pull her hair. Patient had a interview with admission director of [facility]; per social media intern, pt became easily frustrated, could not recall answers to basic questions and started hitting herself. [facility] denied her admission. conditioning room worker reported informing patient of denial; when T/W discussed it with her later in the afternoon, pt did not recall the conversation with social media intern and stated she did not know she was not accepted at [facility]. Pt stated, I want to leave. I don't care if I go to the streets and . Started Trileptal 150mg PO BID; risks/benefits discussed. Decreased Keppra to 500mg PO BID. Hospitalist ordered CT scan angio abdomen; pt aware; ordered Ativan 2mg PO once for procedure. T/W called Health care proxy, number not in service. Patient educated on: medication risk/benefits, therapeutic strategies and medical condition Informed Consent: understands and further education needed Reason for continued inpatient stay Substantial Risk for: med/psych decompensation Time Spent With Patient Time: Total time managing care of this patient today _30___ minutes.
[2023-04-08 12:08] LABS: Glucose, Whole Blood 198 mg/dL (60-115)
[2023-04-08] MEDS: LORazepam 1 MG TABLET 2 MG PO (14:59)
[2023-04-08 15:00] VITALS: BP 150/80; PULSE 104
[2023-04-08] MEDS: iohexoL 350 MG/ML 100 ML INFUS..BTL IV (16:08)
[2023-04-08 17:40] LABS: Glucose, Whole Blood 237 mg/dL (60-115)
[2023-04-08 20:20] VITALS: BP 150/72; PULSE 111; TEMP 36.6; O2SAT 95
[2023-04-08 20:25] LABS: Glucose, Whole Blood 367 mg/dL (60-115)
[2023-04-08] MEDS: metFORMIN HCl ER 750 MG TAB.ER.24H PO (20:38)
[2023-04-08] MEDS: traZODone HCL 100 MG TABLET 200 MG PO (20:38)
[2023-04-08] MEDS: OXcarbazepine 150 MG TABLET PO (20:38)
[2023-04-08] MEDS: levETIRAcetam 500 MG TABLET PO (20:39)
[2023-04-08] MEDS: amLODIPine Besylate 10 MG TABLET PO (20:39)
[2023-04-08] MEDS: hydrOXYzine HCL 25 MG TABLET PO (22:21)
[2023-04-09 06:00] VITALS: RESP 16
[2023-04-09 08:24] LABS: Glucose, Whole Blood 267 mg/dL (60-115)
[2023-04-09] MEDS: Doxycycline Monohydrate 100 MG CAPSULE PO ×2 (09:06→21:28)
[2023-04-09] MEDS: levETIRAcetam 500 MG TABLET PO ×2 (09:07→21:28)
[2023-04-09] MEDS: Ferrous Sulfate 324 MG TABLET.DR PO (09:07)
[2023-04-09] MEDS: cephALEXin 500 MG CAPSULE PO ×4 (09:07→21:31)
[2023-04-09] MEDS: Losartan Potassium 50 MG TABLET PO (09:07)
[2023-04-09] MEDS: Insulin Lispro 100 UNIT/ML 3 ML VIAL SUBCUT ×3 (09:07→22:20)
[2023-04-09] MEDS: hydrALAZINE HCl 50 MG TABLET PO ×3 (09:07→21:30)
[2023-04-09] MEDS: Insulin Glargine,Hum.rec.anlog 100 UNIT/ML 10 ML VIAL 28 UNIT SUBCUT (09:07)
[2023-04-09] MEDS: glipiZIDE 5 MG TABLET PO ×2 (09:07→16:07)
[2023-04-09] MEDS: OXcarbazepine 150 MG TABLET PO ×2 (09:07→21:29)
[2023-04-09] MEDS: OLANZapine 10 MG TABLET PO ×2 (09:07→21:29)
--- NOTE | 2023-04-09 10:00 | P.PNPSI_ITS ---
Documented by User: Denise Jacobson NP 04/09/23 14:12 Subjective Subjective Date of Service: 04/09/23 Reason For Visit: Disorganized and dangerous behavior Subjective Notes: 3 Day Interim History: Reviewed in team and . Patient continues to present irritable and guarded during 1:1. Patient became upset d/t RN telling her she had to wait to take a shower; pt began banging her head on pillow in bed. Patient asked to be covered by blankets; T/W asked patient why she felt she could not do it herself, pt stated, I CAN'T! ; she grabbed blankets to cover herself but let them go [facility] up her legs; pt began thrashing her legs and making whining noises. RN then came into room and stated she could take a shower now, pt then calmly got up from bed and went into shower room. T/W asked if the treatment team could speak to her cousin Randa who is her health care proxy; pt gave verbal permission. Section 7 and 8 to be filed d/t patient safety and inability to care for herself. T/W spoke to Randa; Randa stated she is aware of being [facility] health care proxy and does not have an issue if the health care proxy needed to be invoked. She expressed concern regarding [facility] ability to care for herself and stated she has been declining cognitively over the past few years. Randa stated she would be willing to testify her concerns in court. Medication Compliance: Yes Side effects from medications: No Attending Groups: Yes Review of Systems Review of Systems unremarkable Constitutional: Reports as per HPI Eyes: Reports as per HPI Reports as per HPI Cardiovascular: Reports as per HPI Respiratory: Reports as per HPI Gastrointestinal: Reports as per HPI Genitourinary: Reports as per HPI Musculoskeletal: Reports as per HPI Skin/Breast: Reports as per HPI Reports as per HPI Psychiatric: Reports as per HPI Endocrine: Reports as per HPI Hematologic/Lymphatic: Reports as per HPI Allergic/Immunologic: Reports as per HPI Mental Status Exam Mental Status Exam Narrative: Pt is alert and oriented; behavior is irritable and guarded; dressed in casual attire; mood is described as fine ; eye contact appropriate; Speech is normal rate, volume and prosody and not pressured; no psychomotor agitation/retardation present; thought process is organized; Thought content is on discharge; otherwise pertinent to relevant topics and without any delusional content, paranoid ideations or grandiosity; denies SI/HI. There is no evidence of perceptual disturbance. Patients insight and judgment are poor. Diagnostics Vital Signs (24Hr): Vital Signs - 24 hr 04/08/23 15:00 04/08/23 20:20 Temperature 97.9 F Pulse Rate 104 H 111 H Blood Pressure 150/80 H 150/72 H Pulse Oximetry 95 Oxygen Delivery Method Room Air BMI result Body Mass Index 21.6 Labs 04/06/23 11:24 04/08/23 08:18 Labs: Laboratory Results - last 48 hr 04/07/23 04/07/23 04/07/23 12:23 17:44 20:22 Creatinine Estim Creat Clear Calc Estimated GFR POC Glucose 251 H 224 H 282 H 04/08/23 04/08/23 04/08/23 08:18 08:46 12:00 Creatinine 0.69 Estim Creat Clear Calc 76.7 Estimated GFR > 60 POC Glucose 236 H 198 H 04/08/23 04/08/23 04/09/23 17:34 20:20 08:11 Creatinine Estim Creat Clear Calc Estimated GFR POC Glucose 237 H 367 H* 267 H Imaging Radiology Impressions: ITS Impressions Renal Ultrasound 04/07/23 07:47 IMPRESSION: Increased peak systolic velocity in the mid left renal artery suggestive renal artery stenosis. Follow-up imaging recommended, preferably CTA if normal renal function. Renal Ultrasound 04/07/23 07:47 IMPRESSION: Increased peak systolic velocity in the mid left renal artery suggestive renal artery stenosis. Follow-up imaging recommended, preferably CTA if normal renal function. Medications Medications Current Medications Acetaminophen (Acetaminophen 325 Mg Tablet) 650 mg PO Q6H PRN PRN Reason: Headache/Pain Mild Scale (1-3) Last Admin: 04/07/23 15:51 Dose: 650 mg Al Hydroxide/Mg Hydroxide (Magnesium Hydrox/Alum Hydrox 30 Ml Oral.Susp) 30 ml PO Q6H PRN PRN Reason: Heartburn/Nausea Amlodipine Besylate (Amlodipine Besylate 10 Mg Tablet) 10 mg PO BEDTIME ONEL; Protocol Last Admin: 04/08/23 20:39 Dose: 10 mg Cephalexin HCl (Cephalexin 500 Mg Capsule) 500 mg PO QID ONEL Last Admin: 04/09/23 09:07 Dose: 500 mg Doxycycline Monohydrate (Doxycycline Monohydrate 100 Mg Capsule) 100 mg PO Q12H [facility] Last Admin: 04/09/23 09:06 Dose: 100 mg Ferrous Sulfate (Ferrous Sulfate 324 Mg Tablet.Dr) 324 mg PO DAILY [facility] Last Admin: 04/09/23 09:07 Dose: 324 mg Glipizide (Glipizide 5 Mg Tablet) 5 mg PO BIDWM [facility] Last Admin: 04/09/23 09:07 Dose: 5 mg Hydralazine HCl (Hydralazine Hcl 50 Mg Tablet) 50 mg PO TID ONEL; Protocol Last Admin: 04/09/23 09:07 Dose: 50 mg Hydroxyzine HCl (Hydroxyzine Hcl 25 Mg Tablet) 25 mg PO Q6H PRN PRN Reason: Anxiety Last Admin: 04/08/23 22:21 Dose: 25 mg Insulin Glargine (Insulin Glargine,Hum.Rec.Anlog 100 Unit/Ml 10 Ml Vial) 28 unit SUBCUT DAILY [facility] Last Admin: 04/09/23 09:07 Dose: 28 unit Insulin Human Lispro (Insulin Lispro 100 Unit/Ml 3 Ml Vial) 0 unit SUBCUT QIDACHS [facility]; Protocol Last Admin: 04/09/23 09:07 Dose: 6 unit Levetiracetam (Levetiracetam 500 Mg Tablet) 500 mg PO BID [facility] Last Admin: 04/09/23 09:07 Dose: 500 mg Lorazepam (Lorazepam 1 Mg Tablet) 1 mg PO BEDTIME [facility] Last Admin: 04/07/23 20:34 Dose: 1 mg Lorazepam (Lorazepam 0.5 Mg Tablet) 0.5 mg PO BID PRN PRN Reason: anxiety/restlessness Last Admin: 04/08/23 22:21 Dose: 0.5 mg Losartan Potassium (Losartan Potassium 50 Mg Tablet) 50 mg PO DAILY [facility]; Protocol Last Admin: 04/09/23 09:07 Dose: 50 mg Magnesium Hydroxide (Milk Of Magnesia 30 Ml Oral.Susp) 30 ml PO DAILY PRN PRN Reason: Constipation Metformin HCl (Metformin Hcl Er 750 Mg Tab.Er.24h) 750 mg PO BEDTIME [facility] Last Admin: 04/08/23 20:38 Dose: 750 mg Nicotine Polacrilex (Nicotine Polacrilex 2 Mg Gum) 4 mg BUCCAL Q2H PRN PRN Reason: Nicotine Cravings Olanzapine (Olanzapine 10 Mg Tablet) 10 mg PO BID [facility] Last Admin: 04/09/23 09:07 Dose: 10 mg Oxcarbazepine (Oxcarbazepine 150 Mg Tablet) 150 mg PO BID [facility] Last Admin: 04/09/23 09:07 Dose: 150 mg Trazodone HCl (Trazodone Hcl 100 Mg Tablet) 200 mg PO BEDTIME [facility] Last Admin: 04/08/23 20:38 Dose: 200 mg Trazodone HCl (Trazodone Hcl 50 Mg Tablet) 50 mg PO BEDTIME PRN PRN Reason: continued insomnia Last Admin: 04/03/23 21:14 Dose: 50 mg Allergies Allergies Allergy/AdvReac Type Severity Reaction Status Date / Time haloperidol Allergy Severe Nausea and Verified 03/17/23 14:24 Vomiting lithium Allergy Severe Nausea and Verified 03/17/23 14:24 Vomiting latex Allergy Mild Itching Verified 03/17/23 14:24 Assessment & Plan Assessment & Plan (1) Bipolar disorder: Status: Acute Code(s): F31.9 - Bipolar disorder, unspecified (2) Osteomyelitis of toe of left foot: Status: Acute Code(s): M86.9 - Osteomyelitis, unspecified (3) Seizure disorder, complex partial: Status: Acute Code(s): G40.209 - Localization-related (focal) (partial) symptomatic epilepsy and epileptic syndromes with complex partial seizures, not intractable, without status epilepticus (4) 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 Plan: 3 day 15 minute safety checks Continue home medications Hospitalist consult for uncontrolled diabetes and low sodium Surgery consult for directions of wound care of toes 03/27:Patient was seen by surgical today for her toes. Surgical provider stated, Wounds are healing appropriately; sutures removed and clean dressings applied. Continue daily dressing changes with 3x3 or 2x2 gauze at base of 4th toes followed by 3 inch sarah wrap. She can follow up in my office in one month. She is also being followed by hospitalist for hyponatremia, hyperglycemia, and hypertension. Hospitalist reports they will change hydralazine to 50 mg p.o. t.i.d.. If BP remains elevated will add losartan 50 mg q.d. They will continue to follow for now. 03/28: Continue current plans and regimen 03/29: Continue current plans and regimen. Addition to right foot wound care 03/30: Continue current regimen and plans. Increased trazodone to 200 mg. Placed surgical consult for right foot evaluation 03/31: Pt guarded and irritable today. Retracted 3 day with social group worker, then signed another one; She refused to meet with T/W. Patient stated, I'm fine. I don't like it here. I want to be left alone . Pt denies SI/HI/VH/AH at this time. Pt was seen for surgical consult; note stated; Right foot noted to have increased discharge. Silver alginate applied yesterday. Left foot healed. Continued daily dressing changed with silver alginate, DSD to right foot. Contine current tx plan. 04/01: Pt continues guarded and irritable today. Patient stated, I hope I get into the rehab. I'm going to keep taking my meds. I just don't want to be here anymore . Pt has been attending groups but keeping to self. continue tx plan. 04/02: Pt presents guarded and irritable today. Patient stated, I'm doing alright. I'm looking forward to leaving here. I want to learn how to do my dressing on my foot . RN was notified to educate patient on this topic. Pt has been attending groups but keeping to self. 3 day is due tomorrow. 04/03: Pt continues irritable today. Reports she does not want to be here but understands it is not medically castro to be discharged d/t her being unable to care for wound. Concerned about belongings; her belongings from care home were brought to hospital; now feels less anxious. Retracted 3 day. Social work will continue to look for placement. OT to do MOCA. Continue current tx plan. 04/05: No changes to current plan 04/06: Observed attending groups. When OT attempted to conduct MOCA; pt was unable to tolerate questioning and starting rocking back and forth stating I don't know ; when she was instructed to take a deep breath, she was then able to answer some questions. T/W and met with patient in the afternoon to assess patient's insight into medical/psychiatric issues; pt was able to express that she would be interested in going to an assisted living housing. Pt stated, I hate people here, I just want to leave. I know I have no where to go . Continue current tx plan. Hospitalist consult placed for continued HTN, elevated blood sugars and possible toe infection. 04/07: Patient presents irritable and guarded during 1:1. Patient reports she is hoping to get into the program. I don't like the idea of them getting all my money but it's better than being homeless . Pt was seen by hospitalist; see note; medication were adjusted. pt was seen by surgery today for foot; Recommend continuing the current dressing changes with silver alginate and DSD. Health care proxy to be contacted tomorrow; possibly will invoke d/t patients mental status and medical condition. 04/08: Patient unable to tolerate long conversations, she becomes frustrated, begins to make a whining noise and starts to hit herself in the head and pull her hair. Patient had a interview with admission director of [facility]; per social group worker, pt became easily frustrated, could not recall answers to basic questions and started hitting herself. [facility] denied her admission. stock worker reported informing patient of denial; when T/W discussed it with her later in the afternoon, pt did not recall the conversation with social group worker and stated she did not know she was not accepted at [facility]. Pt stated, I want to leave. I don't care if I go to the streets and . Started Trileptal 150mg PO BID; risks/benefits discussed. Decreased Keppra to 500mg PO BID. Hospitalist ordered CT scan angio abdomen; pt aware; ordered Ativan 2mg PO once for procedure. T/W called Health care proxy, number not in service. 04/09: T/W asked if the treatment team could speak to her cousin Randa who is her health care proxy; pt gave verbal permission. Section 7 and 8 to be filed d/t patient safety and inability to care for herself. T/W spoke to Randa; Randa stated she is aware of being [facility] health care proxy and does not have an issue if the health care proxy needed to be invoked. She expressed concern regarding [facility] ability to care for herself and stated she has been declining cognitively over the past few years. Randa stated she would be willing to testify her concerns in court. MRI ordered d/t worsening behavior and cognition. Patient educated on: diagnosis, medication risk/benefits, therapeutic strategies and medical condition Guardian/Caregiver educated on: diagnosis and medical condition Informed Consent: understands and further education needed Reason for continued inpatient stay Substantial Risk for: med/psych decompensation Time Spent With Patient Time: Total time managing care of this patient today _30___ minutes. Documented by User: José Miguel Dallas MD 04/09/23 22:06 Subjective Subjective Reason For Visit: Disorganized and dangerous behavior Subjective Notes: Section 7 Interim History: Reviewed in team and . Patient continues to present irritable and guarded during 1:1. Patient became upset d/t RN telling her she had to wait to take a shower; pt began banging her head on pillow in bed. Patient asked to be covered by blankets; T/W asked patient why she felt she could not do it herself, pt stated, I CAN'T! ; she grabbed blankets to cover herself but let them go [facility] up her legs; pt began thrashing her legs and making whining noises. RN then came into room and stated she could take a shower now, pt then calmly got up from bed and went into shower room. T/W asked if the treatment team could speak to her cousin Randa who is her health care proxy; pt gave verbal permission. Section 7 and 8 to be filed d/t patient safety and inability to care for herself, in the context of irritability mood instability with bipolar disorder with marked impulsivity and irritability T/W spoke to Randa; Randa stated she is aware of being [facility] health care proxy and does not have an issue if the health care proxy needed to be invoked. She expressed concern regarding [facility] ability to care for herself and stated she has been declining cognitively over the past few years. Randa stated she would be willing to testify her concerns in court. Review of Systems Acute medical concerns: Yes Uncontrolled diabetes hypertension Mental Status Exam Mental Status Exam Narrative: Pt is alert and oriented; behavior is irritable and guarded; dressed in casual attire; mood is described as fine ; eye contact appropriate; Speech is normal rate, volume and prosody and not pressured; mood is dysphoric easily irritable; thought process is organized concrete limited insight; Thought content is on discharge; otherwise pertinent to relevant topics and without any delusional content, paranoid ideations or grandiosity; denies SI/HI. There is no evidence of perceptual disturbance. Patients insight and judgment are poor. 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
--- NOTE | 2023-04-09 10:22 | P.PNPSI_ITS ---
Subjective Subjective Reason For Visit: Disorganized and dangerous behavior Diagnostics Vital Signs (24Hr): Vital Signs - 24 hr 04/08/23 15:00 04/08/23 20:20 Temperature 97.9 F Pulse Rate 104 H 111 H Blood Pressure 150/80 H 150/72 H Pulse Oximetry 95 Oxygen Delivery Method Room Air BMI result Body Mass Index 21.6 Labs 04/06/23 11:24 04/08/23 08:18 Labs: Laboratory Results - last 48 hr 04/07/23 04/07/23 04/07/23 12:23 17:44 20:22 Creatinine Estim Creat Clear Calc Estimated GFR POC Glucose 251 H 224 H 282 H 04/08/23 04/08/23 04/08/23 08:18 08:46 12:00 Creatinine 0.69 Estim Creat Clear Calc 76.7 Estimated GFR > 60 POC Glucose 236 H 198 H 04/08/23 04/08/23 04/09/23 17:34 20:20 08:11 Creatinine Estim Creat Clear Calc Estimated GFR POC Glucose 237 H 367 H* 267 H Imaging Radiology Impressions: ITS Impressions Renal Ultrasound 04/07/23 07:47 IMPRESSION: Increased peak systolic velocity in the mid left renal artery suggestive renal artery stenosis. Follow-up imaging recommended, preferably CTA if normal renal function. Renal Ultrasound 04/07/23 07:47 IMPRESSION: Increased peak systolic velocity in the mid left renal artery suggestive renal artery stenosis. Follow-up imaging recommended, preferably CTA if normal renal function. Medications Medications Current Medications Acetaminophen (Acetaminophen 325 Mg Tablet) 650 mg PO Q6H PRN PRN Reason: Headache/Pain Mild Scale (1-3) Last Admin: 04/07/23 15:51 Dose: 650 mg Al Hydroxide/Mg Hydroxide (Magnesium Hydrox/Alum Hydrox 30 Ml Oral.Susp) 30 ml PO Q6H PRN PRN Reason: Heartburn/Nausea Amlodipine Besylate (Amlodipine Besylate 10 Mg Tablet) 10 mg PO BEDTIME [facility]; Protocol Last Admin: 04/08/23 20:39 Dose: 10 mg Cephalexin HCl (Cephalexin 500 Mg Capsule) 500 mg PO QID [facility] Last Admin: 04/09/23 09:07 Dose: 500 mg Doxycycline Monohydrate (Doxycycline Monohydrate 100 Mg Capsule) 100 mg PO Q12H [facility] Last Admin: 04/09/23 09:06 Dose: 100 mg Ferrous Sulfate (Ferrous Sulfate 324 Mg Tablet.) 324 mg PO DAILY [facility] Last Admin: 04/09/23 09:07 Dose: 324 mg Glipizide (Glipizide 5 Mg Tablet) 5 mg PO BIDWM [facility] Last Admin: 04/09/23 09:07 Dose: 5 mg Hydralazine HCl (Hydralazine Hcl 50 Mg Tablet) 50 mg PO TID [facility]; Protocol Last Admin: 04/09/23 09:07 Dose: 50 mg Hydroxyzine HCl (Hydroxyzine Hcl 25 Mg Tablet) 25 mg PO Q6H PRN PRN Reason: Anxiety Last Admin: 04/08/23 22:21 Dose: 25 mg Insulin Glargine (Insulin Glargine,Hum.Rec.Anlog 100 Unit/Ml 10 Ml Vial) 28 unit SUBCUT DAILY [facility] Last Admin: 04/09/23 09:07 Dose: 28 unit Insulin Human Lispro (Insulin Lispro 100 Unit/Ml 3 Ml Vial) 0 unit SUBCUT QIDACHS [facility]; Protocol Last Admin: 04/09/23 09:07 Dose: 6 unit Levetiracetam (Levetiracetam 500 Mg Tablet) 500 mg PO BID [facility] Last Admin: 04/09/23 09:07 Dose: 500 mg Lorazepam (Lorazepam 1 Mg Tablet) 1 mg PO BEDTIME [facility] Last Admin: 04/07/23 20:34 Dose: 1 mg Lorazepam (Lorazepam 0.5 Mg Tablet) 0.5 mg PO BID PRN PRN Reason: anxiety/restlessness Last Admin: 04/08/23 22:21 Dose: 0.5 mg Losartan Potassium (Losartan Potassium 50 Mg Tablet) 50 mg PO DAILY [facility]; Protocol Last Admin: 04/09/23 09:07 Dose: 50 mg Magnesium Hydroxide (Milk Of Magnesia 30 Ml Oral.Susp) 30 ml PO DAILY PRN PRN Reason: Constipation Metformin HCl (Metformin Hcl Er 750 Mg Tab.Er.24h) 750 mg PO BEDTIME [facility] Last Admin: 04/08/23 20:38 Dose: 750 mg Nicotine Polacrilex (Nicotine Polacrilex 2 Mg Gum) 4 mg BUCCAL Q2H PRN PRN Reason: Nicotine Cravings Olanzapine (Olanzapine 10 Mg Tablet) 10 mg PO BID [facility] Last Admin: 04/09/23 09:07 Dose: 10 mg Oxcarbazepine (Oxcarbazepine 150 Mg Tablet) 150 mg PO BID [facility] Last Admin: 04/09/23 09:07 Dose: 150 mg Trazodone HCl (Trazodone Hcl 100 Mg Tablet) 200 mg PO BEDTIME [facility] Last Admin: 04/08/23 20:38 Dose: 200 mg Trazodone HCl (Trazodone Hcl 50 Mg Tablet) 50 mg PO BEDTIME PRN PRN Reason: continued insomnia Last Admin: 04/03/23 21:14 Dose: 50 mg Allergies Allergies Allergy/AdvReac Type Severity Reaction Status Date / Time haloperidol Allergy Severe Nausea and Verified 03/17/23 14:24 Vomiting lithium Allergy Severe Nausea and Verified 03/17/23 14:24 Vomiting latex Allergy Mild Itching Verified 03/17/23 14:24 Assessment & Plan Assessment & Plan (1) Bipolar disorder: Status: Acute Code(s): F31.9 - Bipolar disorder, unspecified (2) Seizure disorder, complex partial: Status: Acute Code(s): G40.209 - Localization-related (focal) (partial) symptomatic epilepsy and epileptic syndromes with complex partial seizures, not intractable, without status epilepticus (3) Osteomyelitis of toe of left foot: Status: Acute Code(s): M86.9 - Osteomyelitis, unspecified (4) 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 Plan: 3 day 15 minute safety checks Continue home medications Hospitalist consult for uncontrolled diabetes and low sodium Surgery consult for directions of wound care of toes 03/27:Patient was seen by surgical today for her toes. Surgical provider stated, Wounds are healing appropriately; sutures removed and clean dressings applied. Continue daily dressing changes with 3x3 or 2x2 gauze at base of 4th toes followed by 3 inch sarah wrap. She can follow up in my office in one month. She is also being followed by hospitalist for hyponatremia, hyperglycemia, and hypertension. Hospitalist reports they will change hydralazine to 50 mg p.o. t.i.d.. If BP remains elevated will add losartan 50 mg q.d. They will continue to follow for now. 03/28: Continue current plans and regimen 03/29: Continue current plans and regimen. Addition to right foot wound care 03/30: Continue current regimen and plans. Increased trazodone to 200 mg. Placed surgical consult for right foot evaluation 03/31: Pt guarded and irritable today. Retracted 3 day with social service assistant, then signed another one; She refused to meet with T/W. Patient stated, I'm fine. I don't like it here. I want to be left alone . Pt denies SI/HI/VH/AH at this time. Pt was seen for surgical consult; note stated; Right foot noted to have increased discharge. Silver alginate applied yesterday. Left foot healed. Continued daily dressing changed with silver alginate, DSD to right foot. Contine current tx plan. 04/01: Pt continues guarded and irritable today. Patient stated, I hope I get into the rehab. I'm going to keep taking my meds. I just don't want to be here anymore . Pt has been attending groups but keeping to self. continue tx plan. 04/02: Pt presents guarded and irritable today. Patient stated, I'm doing alright. I'm looking forward to leaving here. I want to learn how to do my dressing on my foot . RN was notified to educate patient on this topic. Pt has been attending groups but keeping to self. 3 day is due tomorrow. 04/03: Pt continues irritable today. Reports she does not want to be here but understands it is not medically castro to be discharged d/t her being unable to care for wound. Concerned about belongings; her belongings from [facility] were brought to hospital; now feels less anxious. Retracted 3 day. Social work will continue to look for placement. OT to do MOCA. Continue current tx plan. 04/05: No changes to current plan 04/06: Observed attending groups. When OT attempted to conduct MOCA; pt was unable to tolerate questioning and starting rocking back and forth stating I don't know ; when she was instructed to take a deep breath, she was then able to answer some questions. T/W and met with patient in the afternoon to assess patient's insight into medical/psychiatric issues; pt was able to express that she would be interested in going to an assisted living housing. Pt stated, I hate people here, I just want to leave. I know I have no where to go . Continue current tx plan. Hospitalist consult placed for continued HTN, elevated blood sugars and possible toe infection. 04/07: Patient presents irritable and guarded during 1:1. Patient reports she is hoping to get into the program. I don't like the idea of them getting all my money but it's better than being homeless . Pt was seen by hospitalist; see note; medication were adjusted. pt was seen by surgery today for foot; Recommend continuing the current dressing changes with silver alginate and DSD. Health care proxy to be contacted tomorrow; possibly will invoke d/t patients mental status and medical condition. 04/08: Patient unable to tolerate long conversations, she becomes frustrated, begins to make a whining noise and starts to hit herself in the head and pull her hair. Patient had a interview with admission director of [facility]; per social service assistant, pt became easily frustrated, could not recall answers to basic questions and started hitting herself. [facility] denied her admission. field worker reported informing patient of denial; when T/W discussed it with her later in the afternoon, pt did not recall the conversation with social service assistant and stated she did not know she was not accepted at [facility]. Pt stated, I want to leave. I don't care if I go to the streets and . Started Trileptal 150mg PO BID; risks/benefits discussed. Decreased Keppra to 500mg PO BID. Hospitalist ordered CT scan angio abdomen; pt aware; ordered Ativan 2mg PO once for procedure. T/W called Health care proxy, number not in service. Time Spent With Patient Time: Total time managing care of this patient today ____ minutes.
[2023-04-09 12:00] VITALS: RESP 16
[2023-04-09 12:30] LABS: Glucose, Whole Blood 104 mg/dL (60-115)
--- NOTE | 2023-04-09 12:59 | PC.NURSE ---
pt dressing changed 04/09/ at 1130. pt did not have much drainage and the wound was open but healing nicely.
[2023-04-09] MEDS: LORazepam 1 MG TABLET 2 MG PO (14:52)
[2023-04-09 17:16] LABS: Glucose, Whole Blood 343 mg/dL (60-115)
[2023-04-09 18:00] VITALS: BP 170/71; PULSE 109; RESP 18; TEMP 36.9; O2SAT 98
[2023-04-09] MEDS: amLODIPine Besylate 10 MG TABLET PO (21:29)
[2023-04-09] MEDS: traZODone HCL 100 MG TABLET 200 MG PO (21:30)
[2023-04-09] MEDS: metFORMIN HCl ER 750 MG TAB.ER.24H PO (21:31)
[2023-04-09 21:42] LABS: Glucose, Whole Blood 441 mg/dL (60-115)
[2023-04-09] MEDS: LORazepam 0.5 MG TABLET PO (22:21)
[2023-04-10] MEDS: hydrALAZINE HCl 50 MG TABLET PO ×3 (08:22→21:09)
[2023-04-10] MEDS: OXcarbazepine 150 MG TABLET PO ×2 (08:22→21:09)
[2023-04-10] MEDS: Ferrous Sulfate 324 MG TABLET.DR PO (08:22)
[2023-04-10] MEDS: Losartan Potassium 50 MG TABLET PO (08:23)
[2023-04-10] MEDS: Doxycycline Monohydrate 100 MG CAPSULE PO ×2 (08:23→21:09)
[2023-04-10] MEDS: levETIRAcetam 500 MG TABLET PO ×2 (08:23→21:09)
[2023-04-10] MEDS: cephALEXin 500 MG CAPSULE PO ×4 (08:23→21:10)
[2023-04-10] MEDS: OLANZapine 10 MG TABLET PO ×2 (08:23→21:09)
[2023-04-10] MEDS: glipiZIDE 5 MG TABLET PO ×2 (08:23→17:31)
[2023-04-10 08:30] VITALS: BP 195/86; PULSE 99; RESP 16; TEMP 36.6; O2SAT 98
[2023-04-10 08:31] LABS: Glucose, Whole Blood 362 mg/dL (60-115)
[2023-04-10] MEDS: Insulin Lispro 100 UNIT/ML 3 ML VIAL SUBCUT ×3 (08:38→21:13)
[2023-04-10] MEDS: Insulin Glargine,Hum.rec.anlog 100 UNIT/ML 10 ML VIAL 28 UNIT SUBCUT (08:39)
[2023-04-10] MEDS: LORazepam 1 MG TABLET 2 MG PO (12:05)
[2023-04-10 13:20] LABS: Glucose, Whole Blood 75 mg/dL (60-115)
--- NOTE | 2023-04-10 15:31 | HO.PSYCHPN ---
Subjective Subjective Date of Service: 04/10/23 Reason For Visit: Disorganized and dangerous behavior Subjective Notes: Section 7 Interim History: The patient is seen in psychiatric follow-up she is depressed somewhat somewhat more willing to engage in treatment. Discussed with patient results of brain MRI and discussion regarding lowering olanzapine and trying 5 Vraylar which would have less of a tendency to worsen diabetes and improvement in depression Mental Status Exam Mental Status Exam Narrative: The patient is alert casually dressed somewhat disheveled quite sad looking there is poverty of content is somewhat slowed mentation mood anxious and dysphoric less suspiciousness remains with significant impairment in insight judgment Diagnostics Vital Signs (24Hr): Vital Signs - 24 hr 04/09/23 18:00 04/10/23 08:30 Temperature 98.4 F 97.8 F Pulse Rate 109 H 99 Respiratory Rate 18 16 Blood Pressure 170/71 H 195/86 H Pulse Oximetry 98 98 Oxygen Delivery Method Room Air Room Air BMI result Body Mass Index 21.6 Labs 04/06/23 11:24 04/08/23 08:18 Labs: Laboratory Results - last 48 hr 04/08/23 04/08/23 04/09/23 17:34 20:20 08:11 POC Glucose 237 H 367 H* 267 H 04/09/23 04/09/23 04/09/23 11:15 17:11 21:36 POC Glucose 104 343 H 441 H* 04/10/23 04/10/23 08:23 13:16 POC Glucose 362 H* 75 Imaging Radiology Impressions: ITS Impressions Renal Ultrasound 04/07/23 07:47 IMPRESSION: Increased peak systolic velocity in the mid left renal artery suggestive renal artery stenosis. Follow-up imaging recommended, preferably CTA if normal renal function. Renal Ultrasound 04/07/23 07:47 IMPRESSION: Increased peak systolic velocity in the mid left renal artery suggestive renal artery stenosis. Follow-up imaging recommended, preferably CTA if normal renal function. Abdomen CTA 04/08/23 16:05 IMPRESSION: Atherosclerotic disease. No significant renal artery stenosis. Calcified plaque at both renal artery origins. Tortuous left renal artery and question mild left mid renal artery stenosis. Several indeterminate left renal lesions as described above. Follow-up dedicated renal imaging with either CT or MRI with and without contrast recommended. 1.5 x 2 cm right adrenal lesion. Given hypertension, endocrinology follow-up and additional imaging may be helpful. This could be done at the same time as renal imaging if clinically indicated. Fleischner guidelines were followed. Orbit X-Ray 04/09/23 15:37 IMPRESSION: No radiopaque foreign body seen in the skull. No radiopaque foreign body seen in the chest. The lungs are clear. Brain MRI 04/10/23 13:15 IMPRESSION: No acute intracranial abnormality. 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 Background changes of mild chronic microangiopathy. Medications Medications Current Medications Acetaminophen (Acetaminophen 325 Mg Tablet) 650 mg PO Q6H PRN PRN Reason: Headache/Pain Mild Scale (1-3) Last Admin: 04/07/23 15:51 Dose: 650 mg Al Hydroxide/Mg Hydroxide (Magnesium Hydrox/Alum Hydrox 30 Ml Oral.Susp) 30 ml PO Q6H PRN PRN Reason: Heartburn/Nausea Amlodipine Besylate (Amlodipine Besylate 10 Mg Tablet) 10 mg PO BEDTIME [facility]; Protocol Last Admin: 04/09/23 21:29 Dose: 10 mg Cephalexin HCl (Cephalexin 500 Mg Capsule) 500 mg PO QID [facility] Last Admin: 04/10/23 13:30 Dose: 500 mg Doxycycline Monohydrate (Doxycycline Monohydrate 100 Mg Capsule) 100 mg PO Q12H [facility] Last Admin: 04/10/23 08:23 Dose: 100 mg Ferrous Sulfate (Ferrous Sulfate 324 Mg Tablet.Dr) 324 mg PO DAILY [facility] Last Admin: 04/10/23 08:22 Dose: 324 mg Glipizide (Glipizide 5 Mg Tablet) 5 mg PO BIDWM [facility] Last Admin: 04/10/23 08:23 Dose: 5 mg Hydralazine HCl (Hydralazine Hcl 50 Mg Tablet) 50 mg PO TID [facility]; Protocol Last Admin: 04/10/23 14:56 Dose: 50 mg Hydroxyzine HCl (Hydroxyzine Hcl 25 Mg Tablet) 25 mg PO Q6H PRN PRN Reason: Anxiety Last Admin: 04/08/23 22:21 Dose: 25 mg Insulin Glargine (Insulin Glargine,Hum.Rec.Anlog 100 Unit/Ml 10 Ml Vial) 28 unit SUBCUT DAILY [facility] Last Admin: 04/10/23 08:39 Dose: 28 unit Insulin Human Lispro (Insulin Lispro 100 Unit/Ml 3 Ml Vial) 0 unit SUBCUT QIDACHS [facility]; Protocol Last Admin: 04/10/23 13:22 Dose: Not Given Levetiracetam (Levetiracetam 500 Mg Tablet) 500 mg PO BID [facility] Last Admin: 04/10/23 08:23 Dose: 500 mg Lorazepam (Lorazepam 1 Mg Tablet) 1 mg PO BEDTIME [facility] Last Admin: 04/07/23 20:34 Dose: 1 mg Lorazepam (Lorazepam 0.5 Mg Tablet) 0.5 mg PO BID PRN PRN Reason: anxiety/restlessness Last Admin: 04/09/23 22:21 Dose: 0.5 mg Losartan Potassium (Losartan Potassium 50 Mg Tablet) 50 mg PO DAILY [facility]; Protocol Last Admin: 04/10/23 08:23 Dose: 50 mg Magnesium Hydroxide (Milk Of Magnesia 30 Ml Oral.Susp) 30 ml PO DAILY PRN PRN Reason: Constipation Metformin HCl (Metformin Hcl Er 750 Mg Tab.Er.24h) 750 mg PO BEDTIME [facility] Last Admin: 04/09/23 21:31 Dose: 750 mg Nicotine Polacrilex (Nicotine Polacrilex 2 Mg Gum) 4 mg BUCCAL Q2H PRN PRN Reason: Nicotine Cravings Olanzapine (Olanzapine 10 Mg Tablet) 10 mg PO BID [facility] Last Admin: 04/10/23 08:23 Dose: 10 mg Oxcarbazepine (Oxcarbazepine 150 Mg Tablet) 150 mg PO BID [facility] Last Admin: 04/10/23 08:22 Dose: 150 mg Trazodone HCl (Trazodone Hcl 100 Mg Tablet) 200 mg PO BEDTIME [facility] Last Admin: 04/09/23 21:30 Dose: 200 mg Trazodone HCl (Trazodone Hcl 50 Mg Tablet) 50 mg PO BEDTIME PRN PRN Reason: continued insomnia Last Admin: 04/03/23 21:14 Dose: 50 mg Allergies Allergies Allergy/AdvReac Type Severity Reaction Status Date / Time haloperidol Allergy Severe Nausea and Verified 03/17/23 14:24 Vomiting lithium Allergy Severe Nausea and Verified 03/17/23 14:24 Vomiting latex Allergy Mild Itching Verified 03/17/23 14:24 Assessment & Plan Assessment & Plan (1) Bipolar disorder: Status: Acute Code(s): F31.9 - Bipolar disorder, unspecified (2) Osteomyelitis of toe of left foot: Status: Acute Code(s): M86.9 - Osteomyelitis, unspecified (3) Seizure disorder, complex partial: Status: Acute Code(s): G40.209 - Localization-related (focal) (partial) symptomatic epilepsy and epileptic syndromes with complex partial seizures, not intractable, without status epilepticus (4) 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, damage, and dysfunction: Status: Acute Code(s): G93.9 - Disorder of brain, unspecified; F07.9 - Unspecified personality and behavioral disorder due to known physiological condition Plan Trial up till added for control of seizures and mood stability trying decrease olanzapine start Vraylar to help with significantly elevated blood sugar patient with Section 7 filed will re-evaluate Patient educated on: diagnosis, medication risk/benefits and medical condition Reason for continued inpatient stay Substantial Risk for: inability to function, rapid decompensation and med/psych decompensation Time Spent With Patient Time: Total time managing care of this patient today _35___ minutes.
[2023-04-10 17:24] LABS: Glucose, Whole Blood 225 mg/dL (60-115)
[2023-04-10 20:45] VITALS: BP 157/67; PULSE 104; RESP 18; TEMP 36.8; O2SAT 96
[2023-04-10 20:53] LABS: Glucose, Whole Blood 333 mg/dL (60-115)
[2023-04-10] MEDS: LORazepam 1 MG TABLET PO (21:09)
[2023-04-10] MEDS: amLODIPine Besylate 10 MG TABLET PO (21:09)
[2023-04-10] MEDS: metFORMIN HCl ER 750 MG TAB.ER.24H PO (21:09)
[2023-04-10] MEDS: traZODone HCL 100 MG TABLET 200 MG PO (21:10)
[2023-04-11 00:51] VITALS: RESP 18
[2023-04-11] MEDS: levETIRAcetam 500 MG TABLET PO ×2 (08:22→21:02)
[2023-04-11] MEDS: cephALEXin 500 MG CAPSULE PO ×4 (08:22→21:01)
[2023-04-11] MEDS: OXcarbazepine 150 MG TABLET PO ×2 (08:22→21:03)
[2023-04-11] MEDS: glipiZIDE 5 MG TABLET PO ×2 (08:22→17:27)
[2023-04-11] MEDS: Doxycycline Monohydrate 100 MG CAPSULE PO ×2 (08:22→21:00)
[2023-04-11] MEDS: Ferrous Sulfate 324 MG TABLET.DR PO (08:22)
[2023-04-11] MEDS: OLANZapine 10 MG TABLET PO ×2 (08:22→21:03)
[2023-04-11] MEDS: hydrALAZINE HCl 50 MG TABLET PO ×3 (08:22→21:02)
[2023-04-11] MEDS: Losartan Potassium 50 MG TABLET PO (08:22)
[2023-04-11 08:30] VITALS: BP 146/90; PULSE 100; RESP 18; TEMP 36.5
[2023-04-11 08:50] LABS: Glucose, Whole Blood 243 mg/dL (60-115)
[2023-04-11] MEDS: Insulin Glargine,Hum.rec.anlog 100 UNIT/ML 10 ML VIAL 28 UNIT SUBCUT (09:08)
[2023-04-11] MEDS: Insulin Lispro 100 UNIT/ML 3 ML VIAL SUBCUT ×4 (09:08→21:04)
[2023-04-11 12:44] LABS: Glucose, Whole Blood 217 mg/dL (60-115)
--- NOTE | 2023-04-11 14:17 | P.PNPSI_ITS ---
Subjective Subjective Date of Service: 04/11/23 Reason For Visit: Disorganized and dangerous behavior Subjective Notes: Section 7 Medical Problems Affecting Mental Status: Yes Interim History: Pt more tearful, though still labile, somewhat less irritable - on trileptal - needs likely further decrease on keppra in near future and further inc trileptal Pt not very engageable- irritable but then calms- Medication Compliance: Yes Side effects from medications: No Attending Groups: No Review of Systems Acute medical concerns: Yes ongoing diabetes glucoses labile from 70-400 not compliant with diet HTN trouble with self care Medical Review of Systems: unchanged Mental Status Exam Mental Status Exam Narrative: lying in bed coverd with sheet irritable on intial engagedment Judgement: Poor Diagnostics Vital Signs (24Hr): Vital Signs - 24 hr 04/10/23 20:45 04/11/23 00:51 04/11/23 08:30 Temperature 98.2 F 97.7 F Pulse Rate 104 H 100 Respiratory Rate 18 18 18 Blood Pressure 157/67 H 146/90 H Pulse Oximetry 96 Oxygen Delivery Method Room Air BMI result Body Mass Index 21.6 Labs 04/06/23 11:24 04/08/23 08:18 Labs: Laboratory Results - last 48 hr 04/09/23 04/09/23 04/10/23 17:11 21:36 08:23 POC Glucose 343 H 441 H* 362 H* 04/10/23 04/10/23 04/10/23 13:16 17:19 20:48 POC Glucose 75 225 H 333 H 04/11/23 04/11/23 08:46 12:37 POC Glucose 243 H 217 H Imaging Radiology Impressions: ITS Impressions Renal Ultrasound 04/07/23 07:47 IMPRESSION: Increased peak systolic velocity in the mid left renal artery suggestive renal artery stenosis. Follow-up imaging recommended, preferably CTA if normal renal function. Renal Ultrasound 04/07/23 07:47 IMPRESSION: Increased peak systolic velocity in the mid left renal artery suggestive renal artery stenosis. Follow-up imaging recommended, preferably CTA if normal renal function. Abdomen CTA 04/08/23 16:05 IMPRESSION: Atherosclerotic disease. No significant renal artery stenosis. Calcified plaque at both renal artery origins. Tortuous left renal artery and question mild left mid renal artery stenosis. Several indeterminate left renal lesions as described above. Follow-up dedicated renal imaging with either CT or MRI with and without contrast recommended. 1.5 x 2 cm right adrenal lesion. Given hypertension, endocrinology follow-up and additional imaging may be helpful. This could be done at the same time as renal imaging if clinically indicated. Fleischner guidelines were followed. Orbit X-Ray 04/09/23 15:37 IMPRESSION: No radiopaque foreign body seen in the skull. No radiopaque foreign body seen in the chest. The lungs are clear. Brain MRI 04/10/23 13:15 IMPRESSION: No acute intracranial abnormality. 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 Background changes of mild chronic microangiopathy. Medications Medications Current Medications Acetaminophen (Acetaminophen 325 Mg Tablet) 650 mg PO Q6H PRN PRN Reason: Headache/Pain Mild Scale (1-3) Last Admin: 04/07/23 15:51 Dose: 650 mg Al Hydroxide/Mg Hydroxide (Magnesium Hydrox/Alum Hydrox 30 Ml Oral.Susp) 30 ml PO Q6H PRN PRN Reason: Heartburn/Nausea Amlodipine Besylate (Amlodipine Besylate 10 Mg Tablet) 10 mg PO BEDTIME [facility]; Protocol Last Admin: 04/10/23 21:09 Dose: 10 mg Cephalexin HCl (Cephalexin 500 Mg Capsule) 500 mg PO QID [facility] Stop: 04/14/23 21:01 Last Admin: 04/11/23 12:44 Dose: 500 mg Doxycycline Monohydrate (Doxycycline Monohydrate 100 Mg Capsule) 100 mg PO Q12H [facility] Stop: 04/13/23 08:01 Last Admin: 04/11/23 08:22 Dose: 100 mg Ferrous Sulfate (Ferrous Sulfate 324 Mg Tablet.) 324 mg PO DAILY [facility] Last Admin: 04/11/23 08:22 Dose: 324 mg Glipizide (Glipizide 5 Mg Tablet) 5 mg PO BIDWM ONEL Last Admin: 04/11/23 08:22 Dose: 5 mg Hydralazine HCl (Hydralazine Hcl 50 Mg Tablet) 50 mg PO TID [facility]; Protocol Last Admin: 04/11/23 08:22 Dose: 50 mg Hydroxyzine HCl (Hydroxyzine Hcl 25 Mg Tablet) 25 mg PO Q6H PRN PRN Reason: Anxiety Last Admin: 04/08/23 22:21 Dose: 25 mg Insulin Glargine (Insulin Glargine,Hum.Rec.Anlog 100 Unit/Ml 10 Ml Vial) 28 unit SUBCUT DAILY [facility] Last Admin: 04/11/23 09:08 Dose: 28 unit Insulin Human Lispro (Insulin Lispro 100 Unit/Ml 3 Ml Vial) 0 unit SUBCUT QIDACHS [facility]; Protocol Last Admin: 04/11/23 12:44 Dose: 4 unit Levetiracetam (Levetiracetam 500 Mg Tablet) 500 mg PO BID [facility] Last Admin: 04/11/23 08:22 Dose: 500 mg Lorazepam (Lorazepam 1 Mg Tablet) 1 mg PO BEDTIME [facility] Last Admin: 04/10/23 21:13 Dose: Not Given Lorazepam (Lorazepam 0.5 Mg Tablet) 0.5 mg PO BID PRN PRN Reason: anxiety/restlessness Last Admin: 04/09/23 22:21 Dose: 0.5 mg Losartan Potassium (Losartan Potassium 50 Mg Tablet) 50 mg PO DAILY [facility]; Protocol Last Admin: 04/11/23 08:22 Dose: 50 mg Magnesium Hydroxide (Milk Of Magnesia 30 Ml Oral.Susp) 30 ml PO DAILY PRN PRN Reason: Constipation Metformin HCl (Metformin Hcl Er 750 Mg Tab.Er.24h) 750 mg PO BEDTIME [facility] Last Admin: 04/10/23 21:09 Dose: 750 mg Nicotine Polacrilex (Nicotine Polacrilex 2 Mg Gum) 4 mg BUCCAL Q2H PRN PRN Reason: Nicotine Cravings Olanzapine (Olanzapine 10 Mg Tablet) 10 mg PO BID [facility] Last Admin: 04/11/23 08:22 Dose: 10 mg Oxcarbazepine (Oxcarbazepine 150 Mg Tablet) 150 mg PO BID [facility] Last Admin: 04/11/23 08:22 Dose: 150 mg Trazodone HCl (Trazodone Hcl 100 Mg Tablet) 200 mg PO BEDTIME [facility] Last Admin: 04/10/23 21:10 Dose: 200 mg Trazodone HCl (Trazodone Hcl 50 Mg Tablet) 50 mg PO BEDTIME PRN PRN Reason: continued insomnia Last Admin: 04/03/23 21:14 Dose: 50 mg Allergies Allergies Allergy/AdvReac Type Severity Reaction Status Date / Time haloperidol Allergy Severe Nausea and Verified 03/17/23 14:24 Vomiting lithium Allergy Severe Nausea and Verified 03/17/23 14:24 Vomiting latex Allergy Mild Itching Verified 03/17/23 14:24 Assessment & Plan Assessment & Plan (1) Bipolar disorder: Status: Acute Code(s): F31.9 - Bipolar disorder, unspecified (2) Osteomyelitis of toe of left foot: Status: Acute Code(s): M86.9 - Osteomyelitis, unspecified (3) Seizure disorder, complex partial: Status: Acute Code(s): G40.209 - Localization-related (focal) (partial) symptomatic epilepsy and epileptic syndromes with complex partial seizures, not intractable, without status epilepticus (4) 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, damage, and dysfunction: Status: Acute Code(s): G93.9 - Disorder of brain, unspecified; F07.9 - Unspecified personality and behavioral disorder due to known physiological condition Plan Trial up till added for control of seizures and mood stability trying decrease olanzapine start Vraylar to help with significantly elevated blood sugar patient with Section 7 filed will re-evaluate Patient educated on: medication risk/benefits Informed Consent: further education needed Reason for continued inpatient stay Substantial Risk for: inability to function and med/psych decompensation Time Spent With Patient Time: Total time managing care of this patient today ____ minutes.
[2023-04-11 17:25] LABS: Glucose, Whole Blood 301 mg/dL (60-115)
[2023-04-11 19:45] VITALS: BP 179/82; PULSE 115; RESP 18; TEMP 36.7; O2SAT 96
[2023-04-11 20:42] LABS: Glucose, Whole Blood 354 mg/dL (60-115)
[2023-04-11] MEDS: metFORMIN HCl ER 750 MG TAB.ER.24H PO (21:02)
[2023-04-11] MEDS: traZODone HCL 100 MG TABLET 200 MG PO (21:02)
[2023-04-11] MEDS: LORazepam 1 MG TABLET PO (21:03)
[2023-04-11] MEDS: amLODIPine Besylate 10 MG TABLET PO (21:03)
[2023-04-11] MEDS: Acetaminophen 325 MG TABLET 650 MG PO (21:36)
[2023-04-12 08:15] VITALS: BP 148/78; PULSE 96; RESP 16; TEMP 36.9; O2SAT 95
[2023-04-12] MEDS: cephALEXin 500 MG CAPSULE PO ×4 (08:21→20:50)
[2023-04-12] MEDS: Doxycycline Monohydrate 100 MG CAPSULE PO ×2 (08:21→20:50)
[2023-04-12] MEDS: hydrALAZINE HCl 50 MG TABLET PO ×3 (08:22→20:50)
[2023-04-12] MEDS: glipiZIDE 5 MG TABLET PO ×2 (08:22→16:58)
[2023-04-12] MEDS: OLANZapine 10 MG TABLET PO ×2 (08:22→20:52)
[2023-04-12] MEDS: Losartan Potassium 50 MG TABLET 100 MG PO (08:22)
[2023-04-12] MEDS: levETIRAcetam 500 MG TABLET PO ×2 (08:23→20:52)
[2023-04-12] MEDS: metFORMIN HCl ER 500 MG TAB.ER.24H 1000 MG PO ×2 (08:23→20:50)
[2023-04-12] MEDS: Ferrous Sulfate 324 MG TABLET.DR PO (08:23)
[2023-04-12] MEDS: OXcarbazepine 150 MG TABLET PO (08:23)
[2023-04-12 08:24] LABS: Glucose, Whole Blood 270 mg/dL (60-115)
[2023-04-12] MEDS: Insulin Lispro 100 UNIT/ML 3 ML VIAL SUBCUT ×3 (08:34→20:48)
[2023-04-12] MEDS: Insulin Glargine,Hum.rec.anlog 100 UNIT/ML 10 ML VIAL 28 UNIT SUBCUT (08:34)
--- NOTE | 2023-04-12 11:18 | HO.PSYCHPN ---
Subjective Subjective Date of Service: 04/12/23 Reason For Visit: Disorganized and dangerous behavior Subjective Notes: Section 7 Interim History: Pt got up and showered, nursing reports pt only sleeps 10-15 min naps thru day - never long interval except when got benzo prior to a procedue. Also noted that pt is more tearful on trileptal but less labile! Medication Compliance: Yes Side effects from medications: Yes (? tearful) Attending Groups: No Review of Systems Acute medical concerns: Yes ongoing diabetes, seizure risk. osteomyelitis - needing debridement Mental Status Exam Mental Status Exam Narrative: lying in bed, tired- Patient Appearance: Appropriate Patient Orientation: Person, Place, Time and Situation Level of Consciousness: Drowsy Patient Behavior: Guarded, Passive, Isolative and Poor Eye Contact Mood Description: Withdrawn Affect Description: Labile (tearful sad to angry yelling out) Ability to Follow Directions: Fair Speech Pattern: Mumbled Thought Process: Disoriented and Rumination Thought Content: positive for Thought Blocking and positive for Disorganized Depressive Symptoms: Muscle Tension, Difficulty Sleeping and Hopelessness Abnormal Motor Activity Signs and Symptoms: Psychomotor Retardation Judgement: Poor Diagnostics Vital Signs (24Hr): Vital Signs - 24 hr 04/11/23 19:45 04/12/23 08:15 Temperature 98.0 F 98.4 F Pulse Rate 115 H 96 Respiratory Rate 18 16 Blood Pressure 179/82 H 148/78 H Pulse Oximetry 96 95 Oxygen Delivery Method Room Air Room Air BMI result Body Mass Index 21.6 Labs 04/06/23 11:24 04/08/23 08:18 Labs: Laboratory Results - last 48 hr 04/10/23 04/10/23 04/10/23 13:16 17:19 20:48 POC Glucose 75 225 H 333 H 04/11/23 04/11/23 04/11/23 08:46 12:37 17:21 POC Glucose 243 H 217 H 301 H 04/11/23 04/12/23 20:30 08:19 POC Glucose 354 H* 270 H Imaging Radiology Impressions: ITS Impressions Renal Ultrasound 04/07/23 07:47 IMPRESSION: Increased peak systolic velocity in the mid left renal artery suggestive renal artery stenosis. Follow-up imaging recommended, preferably CTA if normal renal function. Renal Ultrasound 04/07/23 07:47 IMPRESSION: Increased peak systolic velocity in the mid left renal artery suggestive renal artery stenosis. Follow-up imaging recommended, preferably CTA if normal renal function. Abdomen CTA 04/08/23 16:05 IMPRESSION: Atherosclerotic disease. No significant renal artery stenosis. Calcified plaque at both renal artery origins. Tortuous left renal artery and question mild left mid renal artery stenosis. Several indeterminate left renal lesions as described above. Follow-up dedicated renal imaging with either CT or MRI with and without contrast recommended. 1.5 x 2 cm right adrenal lesion. Given hypertension, endocrinology follow-up and additional imaging may be helpful. This could be done at the same time as renal imaging if clinically indicated. Fleischner guidelines were followed. Orbit X-Ray 04/09/23 15:37 IMPRESSION: No radiopaque foreign body seen in the skull. No radiopaque foreign body seen in the chest. The lungs are clear. Brain MRI 04/10/23 13:15 IMPRESSION: No acute intracranial abnormality. 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 Background changes of mild chronic microangiopathy. Medications Medications Current Medications Acetaminophen (Acetaminophen 325 Mg Tablet) 650 mg PO Q6H PRN PRN Reason: Headache/Pain Mild Scale (1-3) Last Admin: 04/11/23 21:36 Dose: 650 mg Al Hydroxide/Mg Hydroxide (Magnesium Hydrox/Alum Hydrox 30 Ml Oral.Susp) 30 ml PO Q6H PRN PRN Reason: Heartburn/Nausea Amlodipine Besylate (Amlodipine Besylate 10 Mg Tablet) 10 mg PO BEDTIME [facility]; Protocol Last Admin: 04/11/23 21:03 Dose: 10 mg Cephalexin HCl (Cephalexin 500 Mg Capsule) 500 mg PO QID [facility] Stop: 04/14/23 21:01 Last Admin: 04/12/23 08:21 Dose: 500 mg Doxycycline Monohydrate (Doxycycline Monohydrate 100 Mg Capsule) 100 mg PO Q12H [facility] Stop: 04/13/23 08:01 Last Admin: 04/12/23 08:21 Dose: 100 mg Ferrous Sulfate (Ferrous Sulfate 324 Mg Tablet.) 324 mg PO DAILY [facility] Last Admin: 04/12/23 08:23 Dose: 324 mg Glipizide (Glipizide 5 Mg Tablet) 5 mg PO BIDWM [facility] Last Admin: 04/12/23 08:22 Dose: 5 mg Hydralazine HCl (Hydralazine Hcl 50 Mg Tablet) 50 mg PO TID [facility]; Protocol Last Admin: 04/12/23 08:22 Dose: 50 mg Hydroxyzine HCl (Hydroxyzine Hcl 25 Mg Tablet) 25 mg PO Q6H PRN PRN Reason: Anxiety Last Admin: 04/08/23 22:21 Dose: 25 mg Insulin Glargine (Insulin Glargine,Hum.Rec.Anlog 100 Unit/Ml 10 Ml Vial) 28 unit SUBCUT DAILY [facility] Last Admin: 04/12/23 08:34 Dose: 28 unit Insulin Human Lispro (Insulin Lispro 100 Unit/Ml 3 Ml Vial) 0 unit SUBCUT QIDACHS [facility]; Protocol Last Admin: 04/12/23 08:34 Dose: 6 unit Levetiracetam (Levetiracetam 500 Mg Tablet) 500 mg PO BID [facility] Last Admin: 04/12/23 08:23 Dose: 500 mg Lorazepam (Lorazepam 1 Mg Tablet) 1 mg PO BEDTIME [facility] Last Admin: 04/11/23 21:03 Dose: 1 mg Lorazepam (Lorazepam 0.5 Mg Tablet) 0.5 mg PO BID PRN PRN Reason: anxiety/restlessness Last Admin: 04/09/23 22:21 Dose: 0.5 mg Losartan Potassium (Losartan Potassium 50 Mg Tablet) 100 mg PO DAILY [facility]; Protocol Last Admin: 04/12/23 08:22 Dose: 100 mg Magnesium Hydroxide (Milk Of Magnesia 30 Ml Oral.Susp) 30 ml PO DAILY PRN PRN Reason: Constipation Metformin HCl (Metformin Hcl Er 500 Mg Tab.Er.24h) 1,000 mg PO BID [facility] Last Admin: 04/12/23 08:23 Dose: 1,000 mg Nicotine Polacrilex (Nicotine Polacrilex 2 Mg Gum) 4 mg BUCCAL Q2H PRN PRN Reason: Nicotine Cravings Olanzapine (Olanzapine 10 Mg Tablet) 10 mg PO BID [facility] Last Admin: 04/12/23 08:22 Dose: 10 mg Oxcarbazepine (Oxcarbazepine 150 Mg Tablet) 150 mg PO BID [facility] Last Admin: 04/12/23 08:23 Dose: 150 mg Trazodone HCl (Trazodone Hcl 100 Mg Tablet) 200 mg PO BEDTIME [facility] Last Admin: 04/11/23 21:02 Dose: 200 mg Trazodone HCl (Trazodone Hcl 50 Mg Tablet) 50 mg PO BEDTIME PRN PRN Reason: continued insomnia Last Admin: 04/03/23 21:14 Dose: 50 mg Allergies Allergies Allergy/AdvReac Type Severity Reaction Status Date / Time haloperidol Allergy Severe Nausea and Verified 03/17/23 14:24 Vomiting lithium Allergy Severe Nausea and Verified 03/17/23 14:24 Vomiting latex Allergy Mild Itching Verified 03/17/23 14:24 Assessment & Plan Assessment & Plan (1) Bipolar disorder: Status: Acute Code(s): F31.9 - Bipolar disorder, unspecified Assessment and Plan: 04/[address] Candelario wondered if inc trileptal and then decreasing keppra would be next step - seems less irritable, though maybe depressed- after that could consider taper off olanzapine and move to vraylar. 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, damage, and dysfunction: Status: Acute Code(s): G93.9 - Disorder of brain, unspecified; F07.9 - Unspecified personality and behavioral disorder due to known physiological condition Plan Trial up till added for control of seizures and mood stability trying decrease olanzapine start Vraylar to help with significantly elevated blood sugar patient with Section 7 filed will re-evaluate Patient educated on: medication risk/benefits Informed Consent: further education needed Reason for continued inpatient stay Substantial Risk for: rapid decompensation and med/psych decompensation Time Spent With Patient Time: Total time managing care of this patient today ____ minutes.
[2023-04-12 12:56] LABS: Glucose, Whole Blood 98 mg/dL (60-115)
--- NOTE | 2023-04-12 13:37 | P.EN_ITS ---
Event Note Date of Service: 04/12/23 Event Note: Blood pressures continue to fluctuate greatly. There is no hemodynamically significant renal artery stenosis that would be affecting pt blood pressure though renal arteries contributing to some left sided mild DUNCAN. There is also calcified plaques in the renal arteries. Cholesterol levels are at all. Recommend adding baby asa daily (ordered). Should follow up outpt with vascular surgery. Renal function is normal. No other known vascular disease. Echo ordered and pending as well. Also seen is a 1.5 x 2cm right sided adrenal lesion which could be contirbutory. Outpt follow up recommended. Goal for ongoing inpt stay is blood pressure management, which will in all likelihood be difficult and will continue to fluctuate- complicated by patient's ongoing aggitation. Low suspicion for pheochromocytoma given fluctuance of blood pressure and abscence of other sy mptoms. She should have outpt follow up with endocrinology for 24 hr urine metanephrines, renin/aldosterone, etc. Discussed with nephrology. Continue losartan 100mg, hydralazine 50mg TID. Change amlodipine to nifedipine 30mg ER. Glucose levels also continue to fluctuate likely related to diet noncompliance given she does have normal glucose readins. Will increase metformin to 1000mg BID. Continue glipizide, lantus, and SSI. Encourage compliance with diabetic diet. Will continue following both glucose levels and blood pressures. Time Spent With Patient Time: Total time managing care of this patient today ____ minutes.
[2023-04-12 15:04] VITALS: BP 124/59; PULSE 96
[2023-04-12 17:34] LABS: Glucose, Whole Blood 351 mg/dL (60-115)
--- NOTE | 2023-04-12 17:37 | PC.NURSE ---
POC at 1730 prior to dinner is 351. Dr Knowles informed per order. No further orders given. lispro 10 u given sc per sliding scale.
[2023-04-12 20:30] VITALS: BP 147/69; PULSE 114; TEMP 36.7; O2SAT 95
[2023-04-12 20:44] LABS: Glucose, Whole Blood 278 mg/dL (60-115)
[2023-04-12] MEDS: traZODone HCL 100 MG TABLET 200 MG PO (20:50)
[2023-04-12] MEDS: OXcarbazepine 300 MG TABLET PO (20:50)
[2023-04-12] MEDS: LORazepam 1 MG TABLET PO (20:51)
[2023-04-12] MEDS: NIFEdipine ER 30 MG TAB.ER.24 60 MG PO (20:51)
[2023-04-12] MEDS: Acetaminophen 325 MG TABLET 650 MG PO (20:57)
[2023-04-13 05:39] VITALS: BP 136/65; PULSE 103
[2023-04-13 06:00] VITALS: BP 140/63; PULSE 101; RESP 18; TEMP 37; O2SAT 96
--- NOTE | 2023-04-13 07:00 | CA_ITS ---
Transthoracic Echocardiogram Patient (Last, First, Middle): Raiza Alejandre, Gender: Female Date of : 1965 Age: 57 Procedure Date: 04/13/2023 Procedure Type: Transthoracic Echocardiogram Location: S3W Height: 160.02 cm Weight: 57.15 kg BSA: 1.59 m2 Heart Rate: 100 bpm BP: 135 / 65 mmHg Egg Buyer: SB Referring MD: Viridiana GARCIA Symptoms: uncontrolled htn Study Quality: Adequate ECG Rhythm: Sinus Conclusions: - Normal left ventricular cavity size. There is mildly increased left ventricular wall thickness. The left ventricular systolic function is hyperdynamic. The visually estimated ejection fraction is >70%. - Normal right ventricular cavity size and systolic function. - There is mild thickening of the aortic valve. - There is mild dilatation of the ascending aorta measuring 3.20 cm. Findings Left Ventricle Normal left ventricular cavity size. There is mildly increased left ventricular wall thickness. The left ventricular systolic function is hyperdynamic. The visually estimated ejection fraction is >70%. There is no evidence of regional wall motion abnormalities. Diastolic function is indeterminate on the basis of available data. Right Ventricle Normal right ventricular cavity size and systolic function. Atria The left atrium is normal in size. The right atrium is normal in size. Aortic Valve There is a normal trileaflet aortic valve. There is mild thickening of the aortic valve. There is no aortic valve stenosis. There is no aortic valve regurgitation. Mitral Valve The mitral valve appears normal. There is no mitral valve regurgitation. There is no mitral valve stenosis. Pulmonic Valve Normal pulmonic valve structure and function. There is no pulmonic valve regurgitation. Tricuspid Valve Normal tricuspid valve structure. There is trace tricuspid valve regurgitation. Tricuspid regurgitation envelope is inadequate for calculation of right ventricular systolic pressure. Normal right atrial pressure. Great Vessels There is mild dilatation of the ascending aorta measuring 3.20 cm. Venous The inferior vena cava is normal in size and collapses greater than 50% with inspiration. Pericardium/Pleural There is no evidence of pericardial effusion. Prior Study Comparison No prior study available for comparison. Measurements 2D Linear Measurements IVSd: 1.20 0.6-0.9/0.6-1.0 cm LVIDd: 4.20 3.9-5.3/4.2-5.9 cm LVIDd Index: 2.64 2.4-3.2/2.2-3.1 cm/m2 LVIDs: 2.50 2.0-3.6 cm LVPWd: 0.90 0.7-1.1 cm LA Diam: 3.90 2.7-3.8/3.0-4.0 cm LAIDs Index: 2.45 1.5-2.3 cm/m2 LV Mass: 183.00 67-162/88-224 g LV Mass Index: 115.09 43-95/49-115 g/m2 LVOT Diam: 2.00 3.0+(-)1.3 cm 2D Systolic Function EF 4C: 69.80 >55% EF 2C: 71.20 >55% EF BiP: 70.20 >55% Mitral Valve MV Pk E: 1.13 MV PK A: 1.51 MV Decel Time: 159.00 E/A: 0.70 E'Lateral: 5.41 E'Medial: 6.53 E/E' Med: 17.30 E/E' Lat: 20.90 PHT: 47.00 MVA PHT: 4.68 Decel Acadia: 7.10 Aortic Valve AoV Pk Eliazar: 1.83 AoV Pk Grad: 13.00 JARVIS: 2.41 LVOT LVOT Pk Eliazar: 1.35 LVOT Mn Eliazar: 0.98 LVOT VTI: 0.27 LVOT Pk Grad: 7.00 LVOT Mn Grad: 4.00 LVOT Diam: 2.00 LVOT Area: 3.14 Diastolic Function MV Pk E: 1.13 MV Pk A: 1.51 E/A: 0.70 E'Medial: 6.53 E/E' Med: 17.30 E' Laterial: 5.41 E/E' Lat: 20.90 Right Ventricle TAPSE (mm): 29.70 TVS' Eliazar: 21.10 Tricuspid Valve RA Press: 3.00 Great Vessels Aorta Sinus of Valsalva: 2.90 2.0-3.5 cm Ao Asc: 3.20 2.1-3.4 cm Pulmonary Valve PV Pk Eliazar: 1.41 Peak PV Grad: 8.00 Updated in Other Vendor System with Status of Final Ga Marques MD electronically signed on 04/13/2023 8:35:34 PM with status of Final
[2023-04-13 08:23] LABS: Glucose, Whole Blood 201 mg/dL (60-115)
[2023-04-13] MEDS: Losartan Potassium 50 MG TABLET 100 MG PO (08:31)
[2023-04-13] MEDS: metFORMIN HCl ER 500 MG TAB.ER.24H 1000 MG PO ×2 (08:31→21:13)
[2023-04-13] MEDS: Doxycycline Monohydrate 100 MG CAPSULE PO (08:31)
[2023-04-13] MEDS: cephALEXin 500 MG CAPSULE PO ×4 (08:31→21:13)
[2023-04-13] MEDS: OXcarbazepine 300 MG TABLET PO ×2 (08:32→21:13)
[2023-04-13] MEDS: hydrALAZINE HCl 50 MG TABLET PO ×3 (08:32→21:12)
[2023-04-13] MEDS: OLANZapine 10 MG TABLET PO ×2 (08:32→21:12)
[2023-04-13] MEDS: Ferrous Sulfate 324 MG TABLET.DR PO (08:32)
[2023-04-13] MEDS: Insulin Glargine,Hum.rec.anlog 100 UNIT/ML 10 ML VIAL 28 UNIT SUBCUT (08:32)
[2023-04-13] MEDS: levETIRAcetam 500 MG TABLET PO ×2 (08:32→21:13)
[2023-04-13] MEDS: glipiZIDE 5 MG TABLET PO ×2 (08:32→16:28)
[2023-04-13] MEDS: Insulin Lispro 100 UNIT/ML 3 ML VIAL SUBCUT ×3 (09:02→21:11)
[2023-04-13 12:00] VITALS: BP 157/89; PULSE 100; RESP 18; TEMP 36.6; O2SAT 100
[2023-04-13 12:48] LABS: Glucose, Whole Blood 132 mg/dL (60-115)
[2023-04-13 17:50] LABS: Glucose, Whole Blood 233 mg/dL (60-115)
--- NOTE | 2023-04-13 17:58 | HO.PSYCHPN ---
Subjective Subjective Date of Service: 04/13/23 Reason For Visit: Disorganized and dangerous behavior Subjective Notes: Conditional Voluntary Interim History: Patient remains somewhat irritable dysphoric in reactive. She was excepting that she had a psychiatric illness that she was needed treatment and accepted need for continued hospital stay and understood she would need to submit a 3 day notice if she wanted to leave the hospital. The patient has been excepting psychiatric medication Vraylar started Medication Compliance: Yes Review of Systems Acute medical concerns: Yes Patient is question of renal artery stenosis hypertension difficult to control diabetes recent amputation has been followed by [facility] see recent imaging Mental Status Exam Mental Status Exam Narrative: Oral facial dyskinesia noted Patient Appearance: Disheveled Patient Orientation: Person, Place, Time and Situation Level of Consciousness: Drowsy Patient Behavior: Guarded, Passive, Isolative and Poor Eye Contact Mood Description: Withdrawn Affect Description: Depressed, Labile (tearful sad to angry yelling out) and Angry Ability to Follow Directions: Fair Speech Pattern: Mumbled Memory Description: Episodic Impaired and Working Impaired Delusions: Not Present Thought Process: Disoriented and Rumination Thought Content: positive for Thought Blocking, positive for Disorganized, negative for Suicidal Ideation or negative for Homicidal Ideation Depressive Symptoms: Muscle Tension, Difficulty Sleeping and Hopelessness Abnormal Motor Activity Signs and Symptoms: Psychomotor Retardation Judgement: Poor Judgement and Insight: Patient was accepting of signing conditional voluntary seem to understand the multiple aspects. She has been cooperative with medical care understand she has diabetes hypertension however she can become quite frustrated reactive when talking about multiple issues whether the regarding her medical issues or discharge plan Diagnostics Vital Signs (24Hr): Vital Signs - 24 hr 04/12/23 20:30 04/13/23 05:39 04/13/23 06:00 Temperature 98.1 F 98.6 F Pulse Rate 114 H 103 H 101 H Respiratory Rate 18 Blood Pressure 147/69 H 136/65 140/63 H Pulse Oximetry 95 96 Oxygen Delivery Method Room Air Room Air 04/13/23 12:00 Temperature 97.9 F Pulse Rate 100 Respiratory Rate 18 Blood Pressure 157/89 H Pulse Oximetry 100 Oxygen Delivery Method Room Air BMI result Body Mass Index 21.6 Labs 04/06/23 11:24 04/08/23 08:18 Labs: Laboratory Results - last 48 hr 04/11/23 04/12/23 04/12/23 20:30 08:19 12:22 POC Glucose 354 H* 270 H 98 04/12/23 04/12/23 04/13/23 17:28 20:35 08:12 POC Glucose 351 H* 278 H 201 H 04/13/23 04/13/23 12:41 17:44 POC Glucose 132 H 233 H Imaging Radiology Impressions: ITS Impressions Renal Ultrasound 04/07/23 07:47 IMPRESSION: Increased peak systolic velocity in the mid left renal artery suggestive renal artery stenosis. Follow-up imaging recommended, preferably CTA if normal renal function. Renal Ultrasound 04/07/23 07:47 IMPRESSION: Increased peak systolic velocity in the mid left renal artery suggestive renal artery stenosis. Follow-up imaging recommended, preferably CTA if normal renal function. Abdomen CTA 04/08/23 16:05 IMPRESSION: Atherosclerotic disease. No significant renal artery stenosis. Calcified plaque at both renal artery origins. Tortuous left renal artery and question mild left mid renal artery stenosis. Several indeterminate left renal lesions as described above. Follow-up dedicated renal imaging with either CT or MRI with and without contrast recommended. 1.5 x 2 cm right adrenal lesion. Given hypertension, endocrinology follow-up and additional imaging may be helpful. This could be done at the same time as renal imaging if clinically indicated. Fleischner guidelines were followed. Orbit X-Ray 04/09/23 15:37 IMPRESSION: No radiopaque foreign body seen in the skull. No radiopaque foreign body seen in the chest. The lungs are clear. Brain MRI 04/10/23 13:15 IMPRESSION: No acute intracranial abnormality. 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 Background changes of mild chronic microangiopathy. Medications Medications Current Medications Acetaminophen (Acetaminophen 325 Mg Tablet) 650 mg PO Q6H PRN PRN Reason: Headache/Pain Mild Scale (1-3) Last Admin: 04/12/23 20:57 Dose: 650 mg Al Hydroxide/Mg Hydroxide (Magnesium Hydrox/Alum Hydrox 30 Ml Oral.Susp) 30 ml PO Q6H PRN PRN Reason: Heartburn/Nausea Cariprazine (Cariprazine Hcl 1.5 Mg Capsule) 1.5 mg PO DAILY [facility] Cephalexin HCl (Cephalexin 500 Mg Capsule) 500 mg PO QID [facility] Stop: 04/14/23 21:01 Last Admin: 04/13/23 16:29 Dose: 500 mg Ferrous Sulfate (Ferrous Sulfate 324 Mg Tablet.Dr) 324 mg PO DAILY [facility] Last Admin: 04/13/23 08:32 Dose: 324 mg Glipizide (Glipizide 5 Mg Tablet) 5 mg PO BIDWM [facility] Last Admin: 04/13/23 16:28 Dose: 5 mg Hydralazine HCl (Hydralazine Hcl 50 Mg Tablet) 50 mg PO TID [facility]; Protocol Last Admin: 04/13/23 14:47 Dose: 50 mg Hydroxyzine HCl (Hydroxyzine Hcl 25 Mg Tablet) 25 mg PO Q6H PRN PRN Reason: Anxiety Last Admin: 04/08/23 22:21 Dose: 25 mg Insulin Glargine (Insulin Glargine,Hum.Rec.Anlog 100 Unit/Ml 10 Ml Vial) 28 unit SUBCUT DAILY [facility] Last Admin: 04/13/23 08:32 Dose: 28 unit Insulin Human Lispro (Insulin Lispro 100 Unit/Ml 3 Ml Vial) 0 unit SUBCUT QIDACHS [facility]; Protocol Last Admin: 04/13/23 12:50 Dose: Not Given Levetiracetam (Levetiracetam 500 Mg Tablet) 500 mg PO BID [facility] Last Admin: 04/13/23 08:32 Dose: 500 mg Lorazepam (Lorazepam 1 Mg Tablet) 1 mg PO BEDTIME [facility] Last Admin: 04/12/23 20:51 Dose: 1 mg Losartan Potassium (Losartan Potassium 50 Mg Tablet) 100 mg PO DAILY [facility]; Protocol Last Admin: 04/13/23 08:31 Dose: 100 mg Magnesium Hydroxide (Milk Of Magnesia 30 Ml Oral.Susp) 30 ml PO DAILY PRN PRN Reason: Constipation Metformin HCl (Metformin Hcl Er 500 Mg Tab.Er.24h) 1,000 mg PO BID [facility] Last Admin: 04/13/23 08:31 Dose: 1,000 mg Nicotine Polacrilex (Nicotine Polacrilex 2 Mg Gum) 4 mg BUCCAL Q2H PRN PRN Reason: Nicotine Cravings Nifedipine (Nifedipine Er 30 Mg Tab.Er.24) 60 mg PO BEDTIME [facility]; Protocol Last Admin: 04/12/23 20:51 Dose: 60 mg Olanzapine (Olanzapine 10 Mg Tablet) 10 mg PO BEDTIME [facility] Oxcarbazepine (Oxcarbazepine 300 Mg Tablet) 300 mg PO BID [facility] Last Admin: 04/13/23 08:32 Dose: 300 mg Trazodone HCl (Trazodone Hcl 100 Mg Tablet) 200 mg PO BEDTIME [facility] Last Admin: 04/12/23 20:50 Dose: 200 mg Trazodone HCl (Trazodone Hcl 50 Mg Tablet) 50 mg PO BEDTIME PRN PRN Reason: continued insomnia Last Admin: 04/03/23 21:14 Dose: 50 mg Allergies Allergies Allergy/AdvReac Type Severity Reaction Status Date / Time haloperidol Allergy Severe Nausea and Verified 03/17/23 14:24 Vomiting lithium Allergy Severe Nausea and Verified 03/17/23 14:24 Vomiting latex Allergy Mild Itching Verified 03/17/23 14:24 Assessment & Plan Assessment & Plan (1) Bipolar disorder: Status: Acute Code(s): F31.9 - Bipolar disorder, unspecified Assessment and Plan: 04/[address] Candelario wondered if inc trileptal and then decreasing keppra would be next step - seems less irritable, though maybe depressed- after that could consider taper off olanzapine and move to [facility]. 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 nodule on ct follow with medicine Reason for continued inpatient stay Substantial Risk for: inability to function, rapid decompensation and med/psych decompensation Time Spent With Patient Time: Total time managing care of this patient today ____ minutes.
[2023-04-13] MEDS: Acetaminophen 325 MG TABLET 650 MG PO (19:00)
[2023-04-13 21:06] LABS: Glucose, Whole Blood 275 mg/dL (60-115)
[2023-04-13] MEDS: traZODone HCL 100 MG TABLET 200 MG PO (21:12)
[2023-04-13] MEDS: NIFEdipine ER 30 MG TAB.ER.24 60 MG PO (21:13)
[2023-04-13] MEDS: LORazepam 1 MG TABLET PO (21:13)
[2023-04-13 21:17] VITALS: BP 146/84; PULSE 108; TEMP 36.7; O2SAT 95
[2023-04-14] MEDS: traZODone HCL 50 MG TABLET PO (01:40)
[2023-04-14 08:36] LABS: Glucose, Whole Blood 270 mg/dL (60-115)
[2023-04-14 08:55] VITALS: BP 128/59; PULSE 99; RESP 18; TEMP 36.8; O2SAT 93
[2023-04-14] MEDS: Insulin Glargine,Hum.rec.anlog 100 UNIT/ML 10 ML VIAL 28 UNIT SUBCUT (08:56)
[2023-04-14] MEDS: Acetaminophen 325 MG TABLET 650 MG PO (08:58)
[2023-04-14] MEDS: Losartan Potassium 50 MG TABLET 100 MG PO (08:59)
[2023-04-14] MEDS: hydrALAZINE HCl 50 MG TABLET PO ×3 (08:59→21:18)
[2023-04-14] MEDS: metFORMIN HCl ER 500 MG TAB.ER.24H 1000 MG PO ×2 (08:59→21:17)
[2023-04-14] MEDS: cephALEXin 500 MG CAPSULE PO ×4 (08:59→21:17)
[2023-04-14] MEDS: glipiZIDE 5 MG TABLET PO ×2 (08:59→16:56)
[2023-04-14] MEDS: Cariprazine HCl 1.5 MG CAPSULE PO (08:59)
[2023-04-14] MEDS: OXcarbazepine 300 MG TABLET PO ×2 (08:59→21:18)
[2023-04-14] MEDS: levETIRAcetam 500 MG TABLET PO (08:59)
[2023-04-14] MEDS: Ferrous Sulfate 324 MG TABLET.DR PO (08:59)
[2023-04-14] MEDS: Insulin Lispro 100 UNIT/ML 3 ML VIAL SUBCUT ×3 (09:56→21:18)
--- NOTE | 2023-04-14 11:44 | P.EN_ITS ---
Event Note Date of Service: 04/14/23 Event Note: Blood pressures continue to improve, but are not at goal. Will increase nifedipine to 90mg nightly. Continue losartan 100mg and hydralazine 50mg TID as well. Pt will need outpt follow up with endocrinology and nephrology on discharge. Glucose levels remain uncontrolled, again suspect dietary noncompliance. Continue glipizide 5mg BID w/ meals, metformin 100mg BID. Continue lantus, humalog on sliding scale- sliding scale increased by units. Continue POC's, enc ourage diabetic diet. Time Spent With Patient Time: Total time managing care of this patient today ____ minutes.
[2023-04-14 12:00] VITALS: BP 107/53; PULSE 82; RESP 18
--- NOTE | 2023-04-14 12:58 | PM.EVENT ---
Event Note Date of Service: 04/14/23 Event Note: Blood pressures have improved as previously noted. However, on further review of abdominal CTA, patient has 1.5 x 2 cm right adrenal lesion with Hounsfield units post IV contrast measuring 30. Left adrenal gland is normal. Given patient's intermittent tachycardia, anxiety/panic, intermittent headaches, there is reasonable concern for pheochromocytoma. Discussed patient with Dr. Dallas and Denise who report the patient will likely be on the psychiatric unit for an extended period and is homeless at baseline. As a result, will further workup adrenal lesion. Discussed patient with Dr. Sandoval in endocrinology both on [facility] text and on the phone who is recommending further characterization of the adrenal lesion with CT abdomen/pelvis with/without contrast with adrenal washout to again assess density of the adrenal lesion. Adrenal lesion with Hounsfield units <10 unlikely to be consistent with pheochromocytoma and is likely benign. However also recommending lab testing given increased LOS and potential for adverse outcomes without further characterization of lesion. 04/14 @8pm- check routine plasma metanephrines 04/14 @11pm- 1mg PO dexamethasone suppression test- give at 11pm 04/15 @8am- Check random cortisol (fasting) 04/16 @8am- check DHEA sulfate, and aldosterone/renin Dexamethasone suppression tests should yield cortisol level to 1.4 Will evaluate aldosterone to renin ratio. If renin suppressed, suggestive of endogenous hyper aldosteronism If DHEA-S is significantly elevated (greater than 5 times upper limit of normal), suggestive of androgen secreting adrenal tumor Will continue working with endocrinology for further recommendations. Continue current antihypertensives as ordered. Will continue following. Time Spent With Patient Time: Total time managing care of this patient today ____ minutes.
[2023-04-14] MEDS: LORazepam 1 MG TABLET 2 MG PO (16:16)
[2023-04-14] MEDS: Magnesium Hydrox/Alum Hydrox 30 ML ORAL.SUSP PO (16:56)
[2023-04-14 17:02] LABS: Glucose, Whole Blood 104 mg/dL (60-115)
[2023-04-14 17:02] LABS: Glucose, Whole Blood 248 mg/dL (60-115)
--- NOTE | 2023-04-14 18:12 | P.PNPSI_ITS ---
Subjective Subjective Date of Service: 04/14/23 Reason For Visit: Disorganized and dangerous behavior Subjective Notes: Conditional Voluntary Review of Systems see abd ct vascular problems noted Mental Status Exam Mental Status Exam Narrative: Oral facial dyskinesia noted Patient Appearance: Disheveled Patient Orientation: Person, Place, Time and Situation Level of Consciousness: Drowsy Patient Behavior: Guarded, Passive, Isolative and Poor Eye Contact Mood Description: Withdrawn Affect Description: Depressed, Labile (tearful sad to angry yelling out) and Angry Ability to Follow Directions: Fair Speech Pattern: Mumbled Memory Description: Episodic Impaired and Working Impaired Delusions: Not Present Thought Process: Disoriented and Rumination Thought Content: positive for Thought Blocking, positive for Disorganized, negative for Suicidal Ideation or negative for Homicidal Ideation Depressive Symptoms: Muscle Tension, Difficulty Sleeping and Hopelessness Abnormal Motor Activity Signs and Symptoms: Psychomotor Retardation Judgement: Poor Judgement and Insight: Patient was accepting of signing conditional voluntary seem to understand the multiple aspects. She has been cooperative with medical care understand she has diabetes hypertension however she can become quite frustrated reactive when talking about multiple issues whether the regarding her medical issues or discharge plan Diagnostics Vital Signs (24Hr): Vital Signs - 24 hr 04/13/23 21:17 04/14/23 08:55 04/14/23 12:00 Temperature 98.1 F 98.2 F Pulse Rate 108 H 99 82 Respiratory Rate 18 18 Blood Pressure 146/84 H 128/59 L 107/53 L Pulse Oximetry 95 93 Oxygen Delivery Method Room Air Room Air BMI result Body Mass Index 21.6 Labs 04/06/23 11:24 04/08/23 08:18 Labs: Laboratory Results - last 48 hr 04/12/23 04/13/23 04/13/23 20:35 08:12 12:41 POC Glucose 278 H 201 H 132 H 04/13/23 04/13/23 04/14/23 17:44 21:02 08:09 POC Glucose 233 H 275 H 270 H 04/14/23 04/14/23 12:39 16:59 POC Glucose 104 248 H Imaging Radiology Impressions: ITS Impressions Renal Ultrasound 04/07/23 07:47 IMPRESSION: Increased peak systolic velocity in the mid left renal artery suggestive renal artery stenosis. Follow-up imaging recommended, preferably CTA if normal renal function. Renal Ultrasound 04/07/23 07:47 IMPRESSION: Increased peak systolic velocity in the mid left renal artery suggestive renal artery stenosis. Follow-up imaging recommended, preferably CTA if normal renal function. Abdomen CTA 04/08/23 16:05 IMPRESSION: Atherosclerotic disease. No significant renal artery stenosis. Calcified plaque at both renal artery origins. Tortuous left renal artery and question mild left mid renal artery stenosis. Several indeterminate left renal lesions as described above. Follow-up dedicated renal imaging with either CT or MRI with and without contrast recommended. 1.5 x 2 cm right adrenal lesion. Given hypertension, endocrinology follow-up and additional imaging may be helpful. This could be done at the same time as renal imaging if clinically indicated. Fleischner guidelines were followed. Orbit X-Ray 04/09/23 15:37 IMPRESSION: No radiopaque foreign body seen in the skull. No radiopaque foreign body seen in the chest. The lungs are clear. Brain MRI 04/10/23 13:15 IMPRESSION: No acute intracranial abnormality. 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 Background changes of mild chronic microangiopathy. Medications Medications Current Medications Acetaminophen (Acetaminophen 325 Mg Tablet) 650 mg PO Q6H PRN PRN Reason: Headache/Pain Mild Scale (1-3) Last Admin: 04/14/23 08:58 Dose: 650 mg Al Hydroxide/Mg Hydroxide (Magnesium Hydrox/Alum Hydrox 30 Ml Oral.Susp) 30 ml PO Q6H PRN PRN Reason: Heartburn/Nausea Last Admin: 04/14/23 16:56 Dose: 30 ml Cariprazine (Cariprazine Hcl 1.5 Mg Capsule) 1.5 mg PO DAILY [facility] Last Admin: 04/14/23 08:59 Dose: 1.5 mg Cephalexin HCl (Cephalexin 500 Mg Capsule) 500 mg PO QID [facility] Stop: 04/14/23 21:01 Last Admin: 04/14/23 16:56 Dose: 500 mg Dexamethasone (Dexamethasone 0.5 Mg Tablet) 1 mg PO ONCE ONE Stop: 04/14/23 23:01 Ferrous Sulfate (Ferrous Sulfate 324 Mg Tablet.) 324 mg PO DAILY [facility] Last Admin: 04/14/23 08:59 Dose: 324 mg Glipizide (Glipizide 5 Mg Tablet) 5 mg PO BIDWM [facility] Last Admin: 04/14/23 16:56 Dose: 5 mg Hydralazine HCl (Hydralazine Hcl 50 Mg Tablet) 50 mg PO TID [facility]; Protocol Last Admin: 04/14/23 15:12 Dose: 50 mg Hydroxyzine HCl (Hydroxyzine Hcl 25 Mg Tablet) 25 mg PO Q6H PRN PRN Reason: Anxiety Last Admin: 04/08/23 22:21 Dose: 25 mg Insulin Glargine (Insulin Glargine,Hum.Rec.Anlog 100 Unit/Ml 10 Ml Vial) 28 unit SUBCUT DAILY [facility] Last Admin: 04/14/23 08:56 Dose: 28 unit Insulin Human Lispro (Insulin Lispro 100 Unit/Ml 3 Ml Vial) 0 unit SUBCUT QIDACHS [facility]; Protocol Last Admin: 04/14/23 13:08 Dose: Not Given Levetiracetam (Levetiracetam 250 Mg Tablet) 250 mg PO BID [facility] Lorazepam (Lorazepam 1 Mg Tablet) 1 mg PO BEDTIME [facility] Last Admin: 04/13/23 21:13 Dose: 1 mg Losartan Potassium (Losartan Potassium 50 Mg Tablet) 100 mg PO DAILY [facility]; Protocol Last Admin: 04/14/23 08:59 Dose: 100 mg Magnesium Hydroxide (Milk Of Magnesia 30 Ml Oral.Susp) 30 ml PO DAILY PRN PRN Reason: Constipation Metformin HCl (Metformin Hcl Er 500 Mg Tab.Er.24h) 1,000 mg PO BID [facility] Last Admin: 04/14/23 08:59 Dose: 1,000 mg Nicotine Polacrilex (Nicotine Polacrilex 2 Mg Gum) 4 mg BUCCAL Q2H PRN PRN Reason: Nicotine Cravings Nifedipine (Nifedipine Er 30 Mg Tab.Er.24) 60 mg PO BEDTIME [facility]; Protocol Olanzapine (Olanzapine 10 Mg Tablet) 10 mg PO BEDTIME [facility] Last Admin: 04/13/23 21:12 Dose: 10 mg Oxcarbazepine (Oxcarbazepine 300 Mg Tablet) 300 mg PO BID [facility] Last Admin: 04/14/23 08:59 Dose: 300 mg Sodium Chloride (0.9 % Sodium Chloride Flush 3 Ml Syringe) [facility] Trazodone HCl (Trazodone Hcl 100 Mg Tablet) 200 mg PO BEDTIME [facility] Last Admin: 04/13/23 21:12 Dose: 200 mg Trazodone HCl (Trazodone Hcl 50 Mg Tablet) 50 mg PO BEDTIME PRN PRN Reason: continued insomnia Last Admin: 04/14/23 01:40 Dose: 50 mg Allergies Allergies Allergy/AdvReac Type Severity Reaction Status Date / Time haloperidol Allergy Severe Nausea and Verified 03/17/23 14:24 Vomiting lithium Allergy Severe Nausea and Verified 03/17/23 14:24 Vomiting latex Allergy Mild Itching Verified 03/17/23 14:24 Assessment & Plan Assessment & Plan (1) Bipolar disorder: Status: Acute Code(s): F31.9 - Bipolar disorder, unspecified Assessment and Plan: 04/[address] Candelario wondered if inc trileptal and then decreasing keppra would be next step - seems less irritable, though maybe depressed- after that could consider taper off olanzapine and move to [facility]. 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 nodule on ct follow with medicine 04/14/23 lower keppra trileptal 300 bid cont to dec olanzapine inc vraylar 3 mg daily Patient educated on: medical condition Informed Consent: further education needed Reason for continued inpatient stay Substantial Risk for: inability to function, rapid decompensation and med/psych decompensation Time Spent With Patient Time: Total time managing care of this patient today ____ minutes.
[2023-04-14] MEDS: iohexoL 350 MG/ML 100 ML INFUS..BTL IV (18:17)
[2023-04-14 20:17] LABS: Glucose, Whole Blood 181 mg/dL (60-115)
[2023-04-14] MEDS: NIFEdipine ER 30 MG TAB.ER.24 60 MG PO (21:17)
[2023-04-14] MEDS: traZODone HCL 100 MG TABLET 200 MG PO (21:17)
[2023-04-14] MEDS: LORazepam 1 MG TABLET PO (21:18)
[2023-04-14] MEDS: OLANZapine 10 MG TABLET PO (21:18)
[2023-04-14] MEDS: levETIRAcetam 250 MG TABLET PO (21:18)
[2023-04-14] MEDS: Milk of Magnesia 30 ML ORAL.SUSP PO (21:21)
[2023-04-14 22:17] VITALS: BP 132/76; PULSE 107; RESP 16; TEMP 36.3; O2SAT 96
[2023-04-15] MEDS: Acetaminophen 325 MG TABLET 650 MG PO (02:16)
[2023-04-15] MEDS: traZODone HCL 50 MG TABLET PO (02:17)
[2023-04-15] MEDS: hydrOXYzine HCL 25 MG TABLET PO ×2 (02:17→21:13)
[2023-04-15 08:26] VITALS: BP 160/75; PULSE 102; RESP 16; TEMP 36.6; O2SAT 96
[2023-04-15] MEDS: OXcarbazepine 300 MG TABLET PO ×2 (08:39→20:38)
[2023-04-15] MEDS: levETIRAcetam 250 MG TABLET PO ×2 (08:39→20:37)
[2023-04-15] MEDS: Losartan Potassium 50 MG TABLET 100 MG PO (08:39)
[2023-04-15] MEDS: hydrALAZINE HCl 50 MG TABLET PO ×3 (08:39→20:38)
[2023-04-15] MEDS: Ferrous Sulfate 324 MG TABLET.DR PO (08:39)
[2023-04-15] MEDS: metFORMIN HCl ER 500 MG TAB.ER.24H 1000 MG PO ×2 (08:39→20:37)
[2023-04-15] MEDS: Cariprazine HCl 1.5 MG CAPSULE PO (08:40)
[2023-04-15] MEDS: glipiZIDE 5 MG TABLET PO ×2 (08:40→17:55)
[2023-04-15] MEDS: Insulin Glargine,Hum.rec.anlog 100 UNIT/ML 10 ML VIAL 28 UNIT SUBCUT (08:46)
[2023-04-15] MEDS: Insulin Lispro 100 UNIT/ML 3 ML VIAL SUBCUT ×3 (08:46→20:36)
[2023-04-15 09:08] LABS: Creatinine Clr Calc Pharmacy 86.8; Estimated Glomerular Filt Rate > 60
[2023-04-15 09:19] LABS: Glucose, Whole Blood 184 mg/dL (60-115)
[2023-04-15 09:29] LABS: Cortisol Random 7.7 ug/dL
[2023-04-15 12:42] LABS: Glucose, Whole Blood 134 mg/dL (60-115)
[2023-04-15 15:00] VITALS: BP 186/90; PULSE 91; O2SAT 98
--- NOTE | 2023-04-15 15:02 | PC.NURSE ---
When giving pt a shower today I noted significant hives. Photo texted to Dr Dallas. Also noted today: swelling to left hand ( had IV with contrast yesterday.) and small closed blister under right second toe. Dr Dallas informed of all of the above. No further orders
[2023-04-15 17:45] LABS: Glucose, Whole Blood 354 mg/dL (60-115)
[2023-04-15 19:50] VITALS: BP 183/86; PULSE 102; RESP 18; TEMP 36.3; O2SAT 95
[2023-04-15] MEDS: LORazepam 1 MG TABLET PO (20:36)
[2023-04-15] MEDS: traZODone HCL 100 MG TABLET 200 MG PO (20:37)
[2023-04-15] MEDS: NIFEdipine ER 30 MG TAB.ER.24 60 MG PO (20:37)
[2023-04-15] MEDS: OLANZapine 10 MG TABLET PO (20:38)
[2023-04-15 20:43] LABS: Glucose, Whole Blood 166 mg/dL (60-115)
[2023-04-15] MEDS: OXcarbazepine 150 MG TABLET 450 MG PO (21:13)
--- NOTE | 2023-04-15 21:27 | P.PNPSI_ITS ---
Subjective Subjective Date of Service: 04/15/23 Reason For Visit: Disorganized and dangerous behavior Subjective Notes: Conditional Voluntary Interim History: Pt depressed ruminating has wheal but no prupitis ? allergy ? maricruz is noted to have word finding exec fx difficulty easily overwhelmed bangs head hits hand Medication Compliance: Yes Side effects from medications: Yes (has noted TD) Review of Systems Acute medical concerns: Yes diabetes htn word finding difficulty Mental Status Exam Mental Status Exam Narrative: Oral facial dyskinesia noted Patient Appearance: Disheveled Patient Orientation: Person, Place, Time and Situation Patient Behavior: Guarded, Restless, Anxious, Fatigued, Distractible, Isolative and Poor Eye Contact Mood Description: Withdrawn Affect Description: Depressed, Labile (tearful sad to angry yelling out) and Angry Ability to Follow Directions: Fair Speech Pattern: Mumbled Memory Description: Episodic Impaired and Working Impaired Delusions: Not Present Thought Process: Disoriented and Rumination Thought Content: positive for Thought Blocking, positive for Disorganized, negative for Suicidal Ideation or negative for Homicidal Ideation Depressive Symptoms: Muscle Tension, Difficulty Sleeping and Hopelessness Abnormal Motor Activity Signs and Symptoms: Psychomotor Retardation Judgement: Poor Judgement and Insight: Patient was accepting of signing conditional voluntary seem to understand the multiple aspects. She has been cooperative with medical care understand she has diabetes hypertension however she can become quite frustrated reactive when talking about multiple issues whether the regarding her medical issues or discharge plan Diagnostics Vital Signs (24Hr): Vital Signs - 24 hr 04/14/23 22:17 04/15/23 08:26 04/15/23 15:00 Temperature 97.3 F 97.9 F Pulse Rate 107 H 102 H 91 Respiratory Rate 16 16 Blood Pressure 132/76 160/75 H 186/90 H Pulse Oximetry 96 96 98 Oxygen Delivery Method Room Air Room Air Room Air 04/15/23 19:50 Temperature 97.3 F Pulse Rate 102 H Respiratory Rate 18 Blood Pressure 183/86 H Pulse Oximetry 95 Oxygen Delivery Method Room Air BMI result Body Mass Index 21.6 Labs 04/06/23 11:24 04/15/23 08:39 Labs: Laboratory Results - last 48 hr 04/14/23 04/14/23 04/14/23 08:09 12:39 16:59 Creatinine Estim Creat Clear Calc Estimated GFR POC Glucose 270 H 104 248 H Random Cortisol 04/14/23 04/15/23 04/15/23 19:59 08:36 08:39 Creatinine 0.61 Estim Creat Clear Calc 86.8 Estimated GFR > 60 POC Glucose 181 H 184 H Random Cortisol 7.7 04/15/23 04/15/23 04/15/23 12:36 17:41 20:15 Creatinine Estim Creat Clear Calc Estimated GFR POC Glucose 134 H 354 H* 166 H Random Cortisol Imaging Radiology Impressions: ITS Impressions Renal Ultrasound 04/07/23 07:47 IMPRESSION: Increased peak systolic velocity in the mid left renal artery suggestive renal artery stenosis. Follow-up imaging recommended, preferably CTA if normal renal function. Renal Ultrasound 04/07/23 07:47 IMPRESSION: Increased peak systolic velocity in the mid left renal artery suggestive renal artery stenosis. Follow-up imaging recommended, preferably CTA if normal renal function. Abdomen CTA 04/08/23 16:05 IMPRESSION: Atherosclerotic disease. No significant renal artery stenosis. Calcified plaque at both renal artery origins. Tortuous left renal artery and question mild left mid renal artery stenosis. Several indeterminate left renal lesions as described above. Follow-up dedicated renal imaging with either CT or MRI with and without contrast recommended. 1.5 x 2 cm right adrenal lesion. Given hypertension, endocrinology follow-up and additional imaging may be helpful. This could be done at the same time as renal imaging if clinically indicated. Fleischner guidelines were followed. Orbit X-Ray 04/09/23 15:37 IMPRESSION: No radiopaque foreign body seen in the skull. No radiopaque foreign body seen in the chest. The lungs are clear. Brain MRI 04/10/23 13:15 IMPRESSION: No acute intracranial abnormality. 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 Background changes of mild chronic microangiopathy. Abdomen/Pelvis CT 04/14/23 18:31 IMPRESSION: 1. Benign right adrenal adenoma. 2. Benign Bosniak class I and class II left renal cysts which need no further follow-up. 3. Other incidental findings as described above including grade 1 anterolisthesis of L4 upon L5 and marked calcific and noncalcific atherosclerotic changes in the aorta and iliofemoral vessels with possible left common iliac stenosis. Fleischner guidelines were followed. Medications Medications Current Medications Acetaminophen (Acetaminophen 325 Mg Tablet) 650 mg PO Q6H PRN PRN Reason: Headache/Pain Mild Scale (1-3) Last Admin: 04/15/23 02:16 Dose: 650 mg Al Hydroxide/Mg Hydroxide (Magnesium Hydrox/Alum Hydrox 30 Ml Oral.Susp) 30 ml PO Q6H PRN PRN Reason: Heartburn/Nausea Last Admin: 04/14/23 16:56 Dose: 30 ml Ferrous Sulfate (Ferrous Sulfate 324 Mg Tablet.Dr) 324 mg PO DAILY [facility] Last Admin: 04/15/23 08:39 Dose: 324 mg Glipizide (Glipizide 5 Mg Tablet) 5 mg PO BIDWM [facility] Last Admin: 04/15/23 17:55 Dose: 5 mg Hydralazine HCl (Hydralazine Hcl 50 Mg Tablet) 50 mg PO TID [facility]; Protocol Last Admin: 04/15/23 20:38 Dose: 50 mg Hydroxyzine HCl (Hydroxyzine Hcl 25 Mg Tablet) 25 mg PO Q6H PRN PRN Reason: Anxiety Last Admin: 04/15/23 02:17 Dose: 25 mg Hydroxyzine HCl (Hydroxyzine Hcl 25 Mg Tablet) 25 mg PO BEDTIME [facility] Last Admin: 04/15/23 21:13 Dose: 25 mg Insulin Glargine (Insulin Glargine,Hum.Rec.Anlog 100 Unit/Ml 10 Ml Vial) 28 unit SUBCUT DAILY [facility] Last Admin: 04/15/23 08:46 Dose: 28 unit Insulin Human Lispro (Insulin Lispro 100 Unit/Ml 3 Ml Vial) 0 unit SUBCUT QIDACHS [facility]; Protocol Last Admin: 04/15/23 20:36 Dose: 4 unit Levetiracetam (Levetiracetam 250 Mg Tablet) 250 mg PO BID [facility] Last Admin: 04/15/23 20:37 Dose: 250 mg Lorazepam (Lorazepam 1 Mg Tablet) 1 mg PO BEDTIME [facility] Last Admin: 04/15/23 20:36 Dose: 1 mg Losartan Potassium (Losartan Potassium 50 Mg Tablet) 100 mg PO DAILY [facility]; Protocol Last Admin: 04/15/23 08:39 Dose: 100 mg Magnesium Hydroxide (Milk Of Magnesia 30 Ml Oral.Susp) 30 ml PO DAILY PRN PRN Reason: Constipation Last Admin: 04/14/23 21:21 Dose: 30 ml Metformin HCl (Metformin Hcl Er 500 Mg Tab.Er.24h) 1,000 mg PO BID [facility] Last Admin: 04/15/23 20:37 Dose: 1,000 mg Nicotine Polacrilex (Nicotine Polacrilex 2 Mg Gum) 4 mg BUCCAL Q2H PRN PRN Reason: Nicotine Cravings Nifedipine (Nifedipine Er 30 Mg Tab.Er.24) 60 mg PO BEDTIME [facility]; Protocol Last Admin: 04/15/23 20:37 Dose: 60 mg Olanzapine (Olanzapine 10 Mg Tablet) 10 mg PO BEDTIME [facility] Last Admin: 04/15/23 20:38 Dose: 10 mg Oxcarbazepine (Oxcarbazepine 150 Mg Tablet) 450 mg PO BEDTIME [facility] Last Admin: 04/15/23 21:13 Dose: 150 mg Oxcarbazepine (Oxcarbazepine 300 Mg Tablet) 300 mg PO DAILY [facility] Trazodone HCl (Trazodone Hcl 100 Mg Tablet) 200 mg PO BEDTIME [facility] Last Admin: 04/15/23 20:37 Dose: 200 mg Allergies Allergies Allergy/AdvReac Type Severity Reaction Status Date / Time haloperidol Allergy Severe Nausea and Verified 03/17/23 14:24 Vomiting lithium Allergy Severe Nausea and Verified 03/17/23 14:24 Vomiting latex Allergy Mild Itching Verified 03/17/23 14:24 Assessment & Plan Assessment & Plan (1) Bipolar disorder: Qualifiers: Current bipolar episode type: depressed Current episode severity: s evere Status: Acute Code(s): F31.9 - Bipolar disorder, unspecified Assessment and Plan: 04/[address] Candelario wondered if inc trileptal and then decreasing keppra would be next step - seems less irritable, though maybe depressed- after that could consider taper off olanzapine and move to [facility]. 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 nodule on ct follow with medicine 04/14/23 lower keppra trileptal 300 am 450 hs cont to dec olanzapine hold vryalar ? allergy monitor pos insomnia Reason for continued inpatient stay Substantial Risk for: inability to function, rapid decompensation and med/psych decompensation Time Spent With Patient Time: Total time managing care of this patient today ____ minutes.
[2023-04-16] MEDS: Acetaminophen 325 MG TABLET 650 MG PO ×3 (06:29→23:58)
[2023-04-16 07:00] VITALS: BMI 24.0
[2023-04-16 08:10] LABS: Glucose, Whole Blood 356 mg/dL (60-115)
[2023-04-16] MEDS: metFORMIN HCl ER 500 MG TAB.ER.24H 1000 MG PO ×2 (08:41→20:24)
[2023-04-16] MEDS: hydrALAZINE HCl 50 MG TABLET PO ×3 (08:42→20:25)
[2023-04-16] MEDS: levETIRAcetam 250 MG TABLET PO ×2 (08:42→20:25)
[2023-04-16] MEDS: OXcarbazepine 300 MG TABLET PO (08:42)
[2023-04-16] MEDS: Losartan Potassium 50 MG TABLET 100 MG PO (08:42)
[2023-04-16] MEDS: glipiZIDE 5 MG TABLET PO ×2 (08:42→17:01)
[2023-04-16] MEDS: Ferrous Sulfate 324 MG TABLET.DR PO (08:42)
[2023-04-16] MEDS: Insulin Glargine,Hum.rec.anlog 100 UNIT/ML 10 ML VIAL 28 UNIT SUBCUT (08:43)
[2023-04-16] MEDS: Insulin Lispro 100 UNIT/ML 3 ML VIAL SUBCUT ×3 (08:44→20:23)
[2023-04-16 08:45] VITALS: BP 139/65; PULSE 100; RESP 18; TEMP 36.9; O2SAT 94
[2023-04-16 12:00] VITALS: BP 150/92; PULSE 96; O2SAT 96
[2023-04-16 12:34] LABS: Glucose, Whole Blood 131 mg/dL (60-115)
[2023-04-16 15:40] VITALS: BP 187/90; PULSE 101
[2023-04-16] MEDS: hydrOXYzine HCL 25 MG TABLET PO ×2 (17:01→20:26)
[2023-04-16 17:05] LABS: Glucose, Whole Blood 213 mg/dL (60-115)
[2023-04-16 19:58] LABS: Glucose, Whole Blood 181 mg/dL (60-115)
[2023-04-16 20:05] VITALS: BP 188/88; PULSE 105; RESP 18; TEMP 36.7; O2SAT 95
[2023-04-16] MEDS: OXcarbazepine 150 MG TABLET 450 MG PO (20:24)
[2023-04-16] MEDS: LORazepam 1 MG TABLET PO ×2 (20:25→23:58)
[2023-04-16] MEDS: traZODone HCL 100 MG TABLET 200 MG PO (20:25)
[2023-04-16] MEDS: NIFEdipine ER 30 MG TAB.ER.24 60 MG PO (20:25)
[2023-04-16] MEDS: OLANZapine 10 MG TABLET PO (20:26)
--- NOTE | 2023-04-16 21:08 | P.PNPSI_ITS ---
Subjective Subjective Date of Service: 04/16/23 Reason For Visit: Disorganized and dangerous behavior Subjective Notes: Conditional Voluntary Interim History: pt with insomnia irritability dysphoria allergic reaction without fever or pruritis maricruz d/c on oxcarbazine tapering keppra seems somewhat less labile pt Mental Status Exam Mental Status Exam Narrative: sad anxious looking Patient Appearance: Appropriate Patient Orientation: Person, Place and Situation Patient Behavior: Guarded, Restless, Anxious, Fatigued, Distractible, Isolative and Poor Eye Contact Mood Description: Withdrawn Affect Description: Depressed, Labile (tearful sad to angry yelling out) and Apprehensive Ability to Follow Directions: Fair Speech Pattern: Impoverished Memory Description: Episodic Impaired and Working Impaired Delusions: Not Present Thought Process: Disoriented and Rumination Thought Content: positive for Thought Blocking, positive for Disorganized, negative for Suicidal Ideation or negative for Homicidal Ideation Depressive Symptoms: Muscle Tension and Difficulty Sleeping Abnormal Motor Activity Signs and Symptoms: Psychomotor Retardation Judgement: Poor Judgement and Insight: pt has some word finding difficulty which is frustrating for her Diagnostics Vital Signs (24Hr): Vital Signs - 24 hr 04/16/23 08:45 04/16/23 12:00 04/16/23 15:40 Temperature 98.4 F Pulse Rate 100 96 101 H Respiratory Rate 18 Blood Pressure 139/65 150/92 H 187/90 H Pulse Oximetry 94 96 Oxygen Delivery Method Room Air Room Air 04/16/23 20:05 Temperature 98.1 F Pulse Rate 105 H Respiratory Rate 18 Blood Pressure 188/88 H Pulse Oximetry 95 Oxygen Delivery Method Room Air BMI result Body Mass Index 24.0 Labs 04/06/23 11:24 04/15/23 08:39 Labs: Laboratory Results - last 48 hr 04/15/23 04/15/23 04/15/23 08:36 08:39 12:36 Creatinine 0.61 Estim Creat Clear Calc 86.8 Estimated GFR > 60 POC Glucose 184 H 134 H Random Cortisol 7.7 04/15/23 04/15/23 04/16/23 17:41 20:15 08:06 Creatinine Estim Creat Clear Calc Estimated GFR POC Glucose 354 H* 166 H 356 H* Random Cortisol 04/16/23 04/16/23 04/16/23 12:28 17:00 19:54 Creatinine Estim Creat Clear Calc Estimated GFR POC Glucose 131 H 213 H 181 H Random Cortisol Imaging Radiology Impressions: ITS Impressions Renal Ultrasound 04/07/23 07:47 IMPRESSION: Increased peak systolic velocity in the mid left renal artery suggestive renal artery stenosis. Follow-up imaging recommended, preferably CTA if normal renal function. Renal Ultrasound 04/07/23 07:47 IMPRESSION: Increased peak systolic velocity in the mid left renal artery suggestive renal artery stenosis. Follow-up imaging recommended, preferably CTA if normal renal function. Abdomen CTA 04/08/23 16:05 IMPRESSION: Atherosclerotic disease. No significant renal artery stenosis. Calcified plaque at both renal artery origins. Tortuous left renal artery and question mild left mid renal artery stenosis. Several indeterminate left renal lesions as described above. Follow-up dedicated renal imaging with either CT or MRI with and without contrast recommended. 1.5 x 2 cm right adrenal lesion. Given hypertension, endocrinology follow-up and additional imaging may be helpful. This could be done at the same time as renal imaging if clinically indicated. Fleischner guidelines were followed. Orbit X-Ray 04/09/23 15:37 IMPRESSION: No radiopaque foreign body seen in the skull. No radiopaque foreign body seen in the chest. The lungs are clear. Brain MRI 04/10/23 13:15 IMPRESSION: No acute intracranial abnormality. 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 Background changes of mild chronic microangiopathy. Abdomen/Pelvis CT 04/14/23 18:31 IMPRESSION: 1. Benign right adrenal adenoma. 2. Benign Bosniak class I and class II left renal cysts which need no further follow-up. 3. Other incidental findings as described above including grade 1 anterolisthesis of L4 upon L5 and marked calcific and noncalcific atherosclerotic changes in the aorta and iliofemoral vessels with possible left common iliac stenosis. Fleischner guidelines were followed. Medications Medications Current Medications Acetaminophen (Acetaminophen 325 Mg Tablet) 650 mg PO Q6H PRN PRN Reason: Headache/Pain Mild Scale (1-3) Last Admin: 04/16/23 17:58 Dose: 650 mg Al Hydroxide/Mg Hydroxide (Magnesium Hydrox/Alum Hydrox 30 Ml Oral.Susp) 30 ml PO Q6H PRN PRN Reason: Heartburn/Nausea Last Admin: 04/14/23 16:56 Dose: 30 ml Ferrous Sulfate (Ferrous Sulfate 324 Mg Tablet.Dr) 324 mg PO DAILY ON[facility] Last Admin: 04/16/23 08:42 Dose: 324 mg Glipizide (Glipizide 5 Mg Tablet) 5 mg PO BIDWM [facility] Last Admin: 04/16/23 17:01 Dose: 5 mg Hydralazine HCl (Hydralazine Hcl 50 Mg Tablet) 50 mg PO TID [facility]; Protocol Last Admin: 04/16/23 20:25 Dose: 50 mg Hydroxyzine HCl (Hydroxyzine Hcl 25 Mg Tablet) 25 mg PO Q6H PRN PRN Reason: Anxiety Last Admin: 04/16/23 17:01 Dose: 25 mg Hydroxyzine HCl (Hydroxyzine Hcl 25 Mg Tablet) 25 mg PO BEDTIME [facility] Last Admin: 04/16/23 20:26 Dose: 25 mg Insulin Glargine (Insulin Glargine,Hum.Rec.Anlog 100 Unit/Ml 10 Ml Vial) 28 unit SUBCUT DAILY [facility] Last Admin: 04/16/23 08:43 Dose: 28 unit Insulin Human Lispro (Insulin Lispro 100 Unit/Ml 3 Ml Vial) 0 unit SUBCUT QIDACHS [facility]; Protocol Last Admin: 04/16/23 20:23 Dose: 4 unit Levetiracetam (Levetiracetam 250 Mg Tablet) 250 mg PO BID [facility] Last Admin: 04/16/23 20:25 Dose: 250 mg Lorazepam (Lorazepam 1 Mg Tablet) 1 mg PO BEDTIME [facility] Last Admin: 04/16/23 20:25 Dose: 1 mg Lorazepam (Lorazepam 1 Mg Tablet) 1 mg PO BEDTIME PRN PRN Reason: Insomnia Losartan Potassium (Losartan Potassium 50 Mg Tablet) 100 mg PO DAILY [facility]; Protocol Last Admin: 04/16/23 08:42 Dose: 100 mg Magnesium Hydroxide (Milk Of Magnesia 30 Ml Oral.Susp) 30 ml PO DAILY PRN PRN Reason: Constipation Last Admin: 04/14/23 21:21 Dose: 30 ml Metformin HCl (Metformin Hcl Er 500 Mg Tab.Er.24h) 1,000 mg PO BID [facility] Last Admin: 04/16/23 20:24 Dose: 1,000 mg Nicotine Polacrilex (Nicotine Polacrilex 2 Mg Gum) 4 mg BUCCAL Q2H PRN PRN Reason: Nicotine Cravings Nifedipine (Nifedipine Er 30 Mg Tab.Er.24) 60 mg PO BEDTIME [facility]; Protocol Last Admin: 04/16/23 20:25 Dose: 60 mg Olanzapine (Olanzapine 10 Mg Tablet) 10 mg PO BEDTIME [facility] Last Admin: 04/16/23 20:26 Dose: 10 mg Oxcarbazepine (Oxcarbazepine 150 Mg Tablet) 450 mg PO BEDTIME [facility] Last Admin: 04/16/23 20:24 Dose: 450 mg Oxcarbazepine (Oxcarbazepine 300 Mg Tablet) 300 mg PO DAILY [facility] Last Admin: 04/16/23 08:42 Dose: 300 mg Trazodone HCl (Trazodone Hcl 100 Mg Tablet) 200 mg PO BEDTIME [facility] Last Admin: 04/16/23 20:25 Dose: 200 mg Allergies Allergies Allergy/AdvReac Type Severity Reaction Status Date / Time haloperidol Allergy Severe Nausea and Verified 03/17/23 14:24 Vomiting lithium Allergy Severe Nausea and Verified 03/17/23 14:24 Vomiting latex Allergy Mild Itching Verified 03/17/23 14:24 Assessment & Plan Assessment & Plan (1) Bipolar disorder: Qualifiers: Current bipolar episode type: depressed Current episode severity: s evere Status: Acute Code(s): F31.9 - Bipolar disorder, unspecified Assessment and Plan: 04/[address] Candelario wondered if inc trileptal and then decreasing keppra would be next step - seems less irritable, though maybe depressed- after that could consider taper off olanzapine and move to [facility]. 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, damage, and dysfunction: Status: Acute Code(s): G93.9 - Disorder of brain, unspecified; F07.9 - Unspecified personality and behavioral disorder due to known physiological condition (4) Insulin dependent type 2 diabetes mellitus: Status: Acute Code(s): E11.9 - Type 2 diabetes mellitus without complications; Z79.4 - [facility]FP (current) use of insulin (5) Hypertension: Status: Acute Code(s): I10 - Essential (primary) hypertension (6) Cognitive and neurobehavioral dysfunction: Status: Acute Code(s): F09 - Unspecified mental disorder due to known physiological condition Plan 04/13Trileptaladded for control of mood labilit taper keppera? nodule on ct follow with medicine 04/14/23 lower keppra trileptal 300 am 450 hs cont to dec olanzapine hold vryalar ? allergy monitor pos insomnia 04/16/23 Pt overwhelmed anxious poor sleep was cooperative recent medical testing cking adrenal system and for tx resistant htn Informed Consent: further education needed Reason for continued inpatient stay Substantial Risk for: med/psych decompensation Time Spent With Patient Time: Total time managing care of this patient today ____ minutes.
[2023-04-17] MEDS: Acetaminophen 325 MG TABLET 650 MG PO ×3 (06:41→23:41)
[2023-04-17 08:10] LABS: Glucose, Whole Blood 339 mg/dL (60-115)
--- NOTE | 2023-04-17 08:15 | PM.PNGS ---
Subjective Subjective Date of Service: 04/17/23 Interval history: Patient developed a new blister below the right 2nd toe on the plantar surface. No bleeding or discharge reported. Continued ulceration at the base of the 4th toe. Physical Exam Vital Signs: Vital Signs: Last Vital Signs Temp 98.1 F 04/16/23 20:05 Pulse 105 H 04/16/23 20:05 Resp 18 04/16/23 20:05 BP 188/88 H 04/16/23 20:05 Pulse Ox 95 04/16/23 20:05 O2 Del Method Room Air 04/16/23 20:05 BMI result Body Mass Index 24.0 Const: General: comfortable Nutritional Appearance: well nourished Orientation/consciousness: patient oriented x3 Limitations: no limitations Resp: Effort & Inspection: normal respiratory effort Neuro: General: patient oriented x3 Extrem: Other: right foot dressings changed. Overall ulcer appears much smaller with no evidence of erythema. No palpable bone at wound base. Small decompressed blister noted below the 2nd toe on the plantar surface. No erythema, open wound or discharge is appreciated. Silver alginate was applied to the open wound at the base of the 4th toe and extra cushioning with 3 x 3 gauze applied to the site of blistering. This was then covered with a 3 in Jorge A. Objective Data Active Medications Acetaminophen (Acetaminophen 325 Mg Tablet) 650 mg PO Q6H PRN PRN Reason: Headache/Pain Mild Scale (1-3) Last Admin: 04/17/23 06:41 Dose: 650 mg Documented By: ALEX Al Hydroxide/Mg Hydroxide (Magnesium Hydrox/Alum Hydrox 30 Ml Oral.Susp) 30 ml PO Q6H PRN PRN Reason: Heartburn/Nausea Last Admin: 04/14/23 16:56 Dose: 30 ml Documented By: VASILIY Ferrous Sulfate (Ferrous Sulfate 324 Mg Tablet.) 324 mg PO DAILY [facility] Last Admin: 04/16/23 08:42 Dose: 324 mg Documented By: DAMEON Glipizide (Glipizide 5 Mg Tablet) 5 mg PO BIDWM [facility] Last Admin: 04/16/23 17:01 Dose: 5 mg Documented By: DAMEON Hydralazine HCl (Hydralazine Hcl 50 Mg Tablet) 50 mg PO TID [facility]; Protocol Last Admin: 04/16/23 20:25 Dose: 50 mg Documented By: STEPHANIA Hydroxyzine HCl (Hydroxyzine Hcl 25 Mg Tablet) 25 mg PO Q6H PRN PRN Reason: Anxiety Last Admin: 04/16/23 17:01 Dose: 25 mg Documented By: DAMEON Hydroxyzine HCl (Hydroxyzine Hcl 25 Mg Tablet) 25 mg PO BEDTIME [facility] Last Admin: 04/16/23 20:26 Dose: 25 mg Documented By: STEPHANIA Insulin Glargine (Insulin Glargine,Hum.Rec.Anlog 100 Unit/Ml 10 Ml Vial) 28 unit SUBCUT DAILY [facility] Last Admin: 04/16/23 08:43 Dose: 28 unit Documented By: DAMEON Insulin Human Lispro (Insulin Lispro 100 Unit/Ml 3 Ml Vial) 0 unit SUBCUT QIDACHS [facility]; Protocol Last Admin: 04/16/23 20:23 Dose: 4 unit Documented By: STEPHANIA Levetiracetam (Levetiracetam 250 Mg Tablet) 250 mg PO BID [facility] Last Admin: 04/16/23 20:25 Dose: 250 mg Documented By: STEPHANIA Lorazepam (Lorazepam 1 Mg Tablet) 1 mg PO BEDTIME [facility] Last Admin: 04/16/23 20:25 Dose: 1 mg Documented By: STEPHANIA Lorazepam (Lorazepam 1 Mg Tablet) 1 mg PO BEDTIME PRN PRN Reason: Insomnia Last Admin: 04/16/23 23:58 Dose: 1 mg Documented By: EMMA Losartan Potassium (Losartan Potassium 50 Mg Tablet) 100 mg PO DAILY [facility]; Protocol Last Admin: 04/16/23 08:42 Dose: 100 mg Documented By: DAMEON Magnesium Hydroxide (Milk Of Magnesia 30 Ml Oral.Susp) 30 ml PO DAILY PRN PRN Reason: Constipation Last Admin: 04/14/23 21:21 Dose: 30 ml Documented By: DIRK Metformin HCl (Metformin Hcl Er 500 Mg Tab.Er.24h) 1,000 mg PO BID [facility] Last Admin: 04/16/23 20:24 Dose: 1,000 mg Documented By: STEPHANIA Nicotine Polacrilex (Nicotine Polacrilex 2 Mg Gum) 4 mg BUCCAL Q2H PRN PRN Reason: Nicotine Cravings Nifedipine (Nifedipine Er 30 Mg Tab.Er.24) 60 mg PO BEDTIME [facility]; Protocol Last Admin: 04/16/23 20:25 Dose: 60 mg Documented By: STEPHANIA Olanzapine (Olanzapine 10 Mg Tablet) 10 mg PO BEDTIME [facility] Last Admin: 04/16/23 20:26 Dose: 10 mg Documented By: STEPHANIA Oxcarbazepine (Oxcarbazepine 150 Mg Tablet) 450 mg PO BEDTIME [facility] Last Admin: 04/16/23 20:24 Dose: 450 mg Documented By: STEPHANIA Oxcarbazepine (Oxcarbazepine 300 Mg Tablet) 300 mg PO DAILY [facility] Last Admin: 04/16/23 08:42 Dose: 300 mg Documented By: DAMEON Trazodone HCl (Trazodone Hcl 100 Mg Tablet) 200 mg PO BEDTIME [facility] Last Admin: 04/16/23 20:25 Dose: 200 mg Documented By: STEPHANIA Labs 04/06/23 11:24 04/15/23 08:39 Labs: Laboratory Results - last 24 hr 04/16/23 04/16/23 04/16/23 12:28 17:00 19:54 POC Glucose 131 H 213 H 181 H 04/17/23 08:07 POC Glucose 339 H Procedures Date of Service Date of Service: 04/17/23 Progress Note: A&P Assessment and plan (1) Insulin dependent type 2 diabetes mellitus: Status: Acute (2) Osteomyelitis of fourth toe of right foot: Status: Resolved Plan Wounds re-examined today. New blistering noted at the base of the 2nd toe on the right foot. No open wound is identified. Recommend additional dressings to protect this area from further trauma with 3 x 3 gauze pads. Continue silver alginate to the open wound at the 4th toe. No surgical intervention required at this time. Follow-up in the office 1 week after discharge. Time Spent With Patient Time: Total time managing care of this patient today ____ minutes. Quality Stroke Does the patient have a stroke diagnosis?: No VTE Prior VTE?: No VTE Risk Level:: Surgical - low VTE Device Contraindication: Treatment Not Indicated VTE Drug Contraindication: Treatment Not Indicated
[2023-04-17 08:35] VITALS: BP 143/70; PULSE 96; RESP 16; TEMP 37; O2SAT 96
[2023-04-17] MEDS: metFORMIN HCl ER 500 MG TAB.ER.24H 1000 MG PO ×2 (09:26→21:36)
[2023-04-17] MEDS: clonazePAM 1 MG TABLET PO ×2 (09:27→21:36)
[2023-04-17] MEDS: hydrALAZINE HCl 50 MG TABLET PO ×3 (09:29→21:37)
[2023-04-17] MEDS: Ferrous Sulfate 324 MG TABLET.DR PO (09:29)
[2023-04-17] MEDS: levETIRAcetam 250 MG TABLET PO ×2 (09:29→21:36)
[2023-04-17] MEDS: OXcarbazepine 300 MG TABLET PO (09:30)
[2023-04-17] MEDS: Losartan Potassium 50 MG TABLET 100 MG PO (09:30)
[2023-04-17] MEDS: glipiZIDE 5 MG TABLET PO ×2 (09:30→17:19)
[2023-04-17] MEDS: Insulin Glargine,Hum.rec.anlog 100 UNIT/ML 10 ML VIAL 28 UNIT SUBCUT (09:32)
[2023-04-17] MEDS: Insulin Lispro 100 UNIT/ML 3 ML VIAL SUBCUT ×3 (09:35→21:37)
[2023-04-17 12:48] LABS: Glucose, Whole Blood 106 mg/dL (60-115)
--- NOTE | 2023-04-17 15:12 | HO.PSYCHPN ---
Subjective Subjective Date of Service: 04/17/23 Reason For Visit: Disorganized and dangerous behavior Subjective Notes: Conditional Voluntary Healthcare Proxy: Yes (not invoked ) Interim History: Patient seen in psychiatric follow-up. [place] was again attempted she was able to complete the initial part with executive functioning but then refused to participate through the rest patient with severe irritability impulsivity head banging at times hand banging patient intermittently. States she wants to leave then quickly able to reflect and feeling it is okay to stay but does become overwhelmed at times with when she leaving. Able to discussed tapering down on on Keppra and increasing Trileptal for seizure disorder and mood stabilization rash noted does not seem to have been exacerbated Vraylar has been discontinued no fever no pruritis patient behaviorally regressed at times asking to be tucked in impulsive eating Medication Compliance: Yes Mental Status Exam Mental Status Exam Narrative: sad anxious looking ongoing pacing at times tearful wanting to leave when asked to reflect on this by this consumer loan underwriter staying she is agreeable to stay in no she needs treatment Patient Appearance: Appropriate Patient Orientation: Person, Place and Situation Patient Behavior: Guarded, Restless, Anxious, Fatigued, Distractible, Isolative and Poor Eye Contact Mood Description: Withdrawn Affect Description: Depressed, Labile (tearful sad to angry yelling out) and Apprehensive Ability to Follow Directions: Fair Speech Pattern: Impoverished Memory Description: Episodic Impaired and Working Impaired Delusions: Not Present Thought Process: Disoriented and Rumination Thought Content: positive for Thought Blocking, positive for Disorganized, negative for Suicidal Ideation or negative for Homicidal Ideation Depressive Symptoms: Muscle Tension and Difficulty Sleeping Abnormal Motor Activity Signs and Symptoms: Psychomotor Retardation Judgement: Poor Judgement and Insight: pt has some word finding difficulty which is frustrating for her Diagnostics Vital Signs (24Hr): Vital Signs - 24 hr 04/16/23 15:40 04/16/23 20:05 04/17/23 08:35 Temperature 98.1 F 98.6 F Pulse Rate 101 H 105 H 96 Respiratory Rate 18 16 Blood Pressure 187/90 H 188/88 H 143/70 H Pulse Oximetry 95 96 Oxygen Delivery Method Room Air Room Air BMI result Body Mass Index 24.0 Labs 04/06/23 11:24 04/15/23 08:39 Labs: Laboratory Results - last 48 hr 04/15/23 04/15/23 04/16/23 17:41 20:15 08:06 POC Glucose 354 H* 166 H 356 H* 04/16/23 04/16/23 04/16/23 12:28 17:00 19:54 POC Glucose 131 H 213 H 181 H 04/17/23 04/17/23 08:07 12:44 POC Glucose 339 H 106 Imaging Radiology Impressions: ITS Impressions Renal Ultrasound 04/07/23 07:47 IMPRESSION: Increased peak systolic velocity in the mid left renal artery suggestive renal artery stenosis. Follow-up imaging recommended, preferably CTA if normal renal function. Renal Ultrasound 04/07/23 07:47 IMPRESSION: Increased peak systolic velocity in the mid left renal artery suggestive renal artery stenosis. Follow-up imaging recommended, preferably CTA if normal renal function. Abdomen CTA 04/08/23 16:05 IMPRESSION: Atherosclerotic disease. No significant renal artery stenosis. Calcified plaque at both renal artery origins. Tortuous left renal artery and question mild left mid renal artery stenosis. Several indeterminate left renal lesions as described above. Follow-up dedicated renal imaging with either CT or MRI with and without contrast recommended. 1.5 x 2 cm right adrenal lesion. Given hypertension, endocrinology follow-up and additional imaging may be helpful. This could be done at the same time as renal imaging if clinically indicated. Fleischner guidelines were followed. Orbit X-Ray 04/09/23 15:37 IMPRESSION: No radiopaque foreign body seen in the skull. No radiopaque foreign body seen in the chest. The lungs are clear. Brain MRI 04/10/23 13:15 IMPRESSION: No acute intracranial abnormality. 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 Background changes of mild chronic microangiopathy. Abdomen/Pelvis CT 04/14/23 18:31 IMPRESSION: 1. Benign right adrenal adenoma. 2. Benign Bosniak class I and class II left renal cysts which need no further follow-up. 3. Other incidental findings as described above including grade 1 anterolisthesis of L4 upon L5 and marked calcific and noncalcific atherosclerotic changes in the aorta and iliofemoral vessels with possible left common iliac stenosis. Fleischner guidelines were followed. Medications Medications Current Medications Acetaminophen (Acetaminophen 325 Mg Tablet) 650 mg PO Q6H PRN PRN Reason: Headache/Pain Mild Scale (1-3) Last Admin: 04/17/23 13:31 Dose: 650 mg Al Hydroxide/Mg Hydroxide (Magnesium Hydrox/Alum Hydrox 30 Ml Oral.Susp) 30 ml PO Q6H PRN PRN Reason: Heartburn/Nausea Last Admin: 04/14/23 16:56 Dose: 30 ml Ferrous Sulfate (Ferrous Sulfate 324 Mg Tablet.Dr) 324 mg PO DAILY [facility] Last Admin: 04/17/23 09:29 Dose: 324 mg Glipizide (Glipizide 5 Mg Tablet) 5 mg PO BIDWM ON[facility] Last Admin: 04/17/23 09:30 Dose: 5 mg Hydralazine HCl (Hydralazine Hcl 50 Mg Tablet) 50 mg PO TID [facility]; Protocol Last Admin: 04/17/23 09:29 Dose: 50 mg Hydroxyzine HCl (Hydroxyzine Hcl 25 Mg Tablet) 25 mg PO Q6H PRN PRN Reason: Anxiety Last Admin: 04/16/23 17:01 Dose: 25 mg Hydroxyzine HCl (Hydroxyzine Hcl 25 Mg Tablet) 25 mg PO BEDTIME [facility] Last Admin: 04/16/23 20:26 Dose: 25 mg Insulin Glargine (Insulin Glargine,Hum.Rec.Anlog 100 Unit/Ml 10 Ml Vial) 28 unit SUBCUT DAILY [facility] Last Admin: 04/17/23 09:32 Dose: 28 unit Insulin Human Lispro (Insulin Lispro 100 Unit/Ml 3 Ml Vial) 0 unit SUBCUT QIDACHS [facility]; Protocol Last Admin: 04/17/23 12:50 Dose: Not Given Levetiracetam (Levetiracetam 250 Mg Tablet) 250 mg PO BID [facility] Last Admin: 04/17/23 09:29 Dose: 250 mg Lorazepam (Lorazepam 1 Mg Tablet) 1 mg PO BEDTIME [facility] Last Admin: 04/16/23 20:25 Dose: 1 mg Lorazepam (Lorazepam 1 Mg Tablet) 1 mg PO BEDTIME PRN PRN Reason: Insomnia Last Admin: 04/16/23 23:58 Dose: 1 mg Losartan Potassium (Losartan Potassium 50 Mg Tablet) 100 mg PO DAILY [facility]; Protocol Last Admin: 04/17/23 09:30 Dose: 100 mg Magnesium Hydroxide (Milk Of Magnesia 30 Ml Oral.Susp) 30 ml PO DAILY PRN PRN Reason: Constipation Last Admin: 04/14/23 21:21 Dose: 30 ml Metformin HCl (Metformin Hcl Er 500 Mg Tab.Er.24h) 1,000 mg PO BID [facility] Last Admin: 04/17/23 09:26 Dose: 1,000 mg Nicotine Polacrilex (Nicotine Polacrilex 2 Mg Gum) 4 mg BUCCAL Q2H PRN PRN Reason: Nicotine Cravings Nifedipine (Nifedipine Er 30 Mg Tab.Er.24) 60 mg PO BEDTIME [facility]; Protocol Last Admin: 04/16/23 20:25 Dose: 60 mg Olanzapine (Olanzapine 10 Mg Tablet) 10 mg PO BEDTIME [facility] Last Admin: 04/16/23 20:26 Dose: 10 mg Oxcarbazepine (Oxcarbazepine 150 Mg Tablet) 450 mg PO BEDTIME [facility] Last Admin: 04/16/23 20:24 Dose: 450 mg Oxcarbazepine (Oxcarbazepine 300 Mg Tablet) 300 mg PO DAILY [facility] Last Admin: 04/17/23 09:30 Dose: 300 mg Trazodone HCl (Trazodone Hcl 100 Mg Tablet) 200 mg PO BEDTIME [facility] Last Admin: 04/16/23 20:25 Dose: 200 mg Allergies Allergies Allergy/AdvReac Type Severity Reaction Status Date / Time haloperidol Allergy Severe Nausea and Verified 03/17/23 14:24 Vomiting lithium Allergy Severe Nausea and Verified 03/17/23 14:24 Vomiting latex Allergy Mild Itching Verified 03/17/23 14:24 Assessment & Plan Assessment & Plan (1) Bipolar 1 disorder, depressed, severe: Status: Acute Code(s): F31.4 - Bipolar disorder, current episode depressed, severe, without psychotic features (2) Insulin dependent type 2 diabetes mellitus: Status: Acute Code(s): E11.9 - Type 2 diabetes mellitus without complications; Z79.4 - termite helper (current) use of insulin (3) Osteomyelitis of fourth toe of right foot: Status: Resolved Code(s): M86.9 - Osteomyelitis, unspecified (4) Cognitive and neurobehavioral dysfunction: Status: Acute Code(s): F09 - Unspecified mental disorder due to known physiological condition (5) Seizure disorder, complex partial: Status: Acute Code(s): G40.209 - Localization-related (focal) (partial) symptomatic epilepsy and epileptic syndromes with complex partial seizures, not intractable, without status epilepticus Plan Patient is depressed irritable in mixed state periods of regression was able to complete 1st part of [place] then did not completed with OT. The patient has difficulty with sleep restlessness in spite of lorazepam and trazodone and olanzapine at bedtime. Stop trazodone change Ativan to clonazepam increase Zyprexa back to 20 mg will to all at bedtime monitor had a poor response to regarding diabetes. Questionable allergy to Vraylar could consider Geodon if diabetes worsens discharge planning patient did allow referral to [facility] Continue oxcarbazepine Patient educated on: medication risk/benefits Informed Consent: further education needed Reason for continued inpatient stay Substantial Risk for: inability to function, rapid decompensation and med/psych decompensation Time Spent With Patient Time: Total time managing care of this patient today ____ minutes.
[2023-04-17 17:37] LABS: Glucose, Whole Blood 231 mg/dL (60-115)
[2023-04-17 20:32] LABS: Glucose, Whole Blood 210 mg/dL (60-115)
[2023-04-17 21:30] VITALS: BP 131/60; PULSE 99; RESP 18; TEMP 36.6; O2SAT 96
[2023-04-17] MEDS: OXcarbazepine 150 MG TABLET 450 MG PO (21:34)
[2023-04-17] MEDS: NIFEdipine ER 30 MG TAB.ER.24 60 MG PO (21:35)
[2023-04-17] MEDS: OLANZapine 10 MG TABLET 20 MG PO (21:35)
[2023-04-17] MEDS: hydrOXYzine HCL 25 MG TABLET PO (21:36)
[2023-04-18 08:10] LABS: Glucose, Whole Blood 189 mg/dL (60-115)
[2023-04-18 08:35] VITALS: BP 147/70; PULSE 92; RESP 18; TEMP 36.2; O2SAT 94
[2023-04-18] MEDS: Insulin Lispro 100 UNIT/ML 3 ML VIAL SUBCUT ×4 (09:08→21:22)
[2023-04-18] MEDS: Losartan Potassium 50 MG TABLET 100 MG PO (09:09)
[2023-04-18] MEDS: Ferrous Sulfate 324 MG TABLET.DR PO (09:09)
[2023-04-18] MEDS: levETIRAcetam 250 MG TABLET PO ×2 (09:09→21:18)
[2023-04-18] MEDS: Insulin Glargine,Hum.rec.anlog 100 UNIT/ML 10 ML VIAL 28 UNIT SUBCUT (09:09)
[2023-04-18] MEDS: glipiZIDE 5 MG TABLET PO ×2 (09:10→17:32)
[2023-04-18] MEDS: metFORMIN HCl ER 500 MG TAB.ER.24H 1000 MG PO ×2 (09:10→21:20)
[2023-04-18] MEDS: OXcarbazepine 300 MG TABLET PO (09:10)
[2023-04-18] MEDS: hydrALAZINE HCl 50 MG TABLET PO ×3 (09:10→21:20)
[2023-04-18 12:43] LABS: Glucose, Whole Blood 197 mg/dL (60-115)
[2023-04-18 15:11] VITALS: BP 171/79; PULSE 68; RESP 18; O2SAT 96
[2023-04-18] MEDS: Acetaminophen 325 MG TABLET 650 MG PO ×2 (15:13→21:21)
[2023-04-18 17:40] LABS: Glucose, Whole Blood 207 mg/dL (60-115)
--- NOTE | 2023-04-18 18:12 | PC.NURSE ---
Pt c/o pain 10/10 on top of RT foot. Black and blue bruising visible on top of foot, no swelling, APAP given, ice applied to area with some effect (pain 5/10). XR ordered by provider.
--- NOTE | 2023-04-18 18:32 | HO.PSYCHPN ---
Subjective Subjective Date of Service: 04/18/23 Reason For Visit: Disorganized and dangerous behavior Interim History: Patient seen in psychiatric follow-up. Patient tearful today saying she doesn't want to be here because she hit her foot yesterday and fell and no one cared! She is complaining of right foot pain (she had toe amputation but will check Xray to RO fracture). She was tearful today. Depressed. Denies SI. Review of Systems Review of Systems unremarkable Yes all other systems are reviewed and are negative, Unobtainable due to mental condition and Unobtainable due to mental status Constitutional: Reports as per HPI Eyes: Reports as per HPI Reports as per HPI Cardiovascular: Reports as per HPI Respiratory: Reports as per HPI Gastrointestinal: Reports as per HPI Musculoskeletal: Reports as per HPI Skin/Breast: Reports as per HPI Reports as per HPI Psychiatric: Reports as per HPI Endocrine: Reports as per HPI Hematologic/Lymphatic: Reports as per HPI Allergic/Immunologic: Reports as per HPI Mental Status Exam Mental Status Exam Narrative: sad anxious looking ongoing pacing at times tearful wanting to leave when asked to reflect on this by this script writer staying she is agreeable to stay in no she needs treatment Patient Appearance: Appropriate Patient Orientation: Person, Place and Situation Level of Consciousness: Drowsy Patient Behavior: Guarded, Restless, Anxious, Fatigued, Distractible, Isolative and Poor Eye Contact Mood Description: Withdrawn Affect Description: Depressed, Labile (tearful sad to angry yelling out) and Apprehensive Ability to Follow Directions: Fair Speech Pattern: Impoverished Memory Description: Episodic Impaired and Working Impaired Diagnostics Vital Signs (24Hr): Vital Signs - 24 hr 04/17/23 21:30 04/18/23 08:35 04/18/23 15:11 Temperature 98 F 97.2 F Pulse Rate 99 92 68 Respiratory Rate 18 18 18 Blood Pressure 131/60 147/70 H 171/79 H Pulse Oximetry 96 94 96 Oxygen Delivery Method Room Air Room Air Room Air BMI result Body Mass Index 24.0 Labs 04/06/23 11:24 04/15/23 08:39 Labs: Laboratory Results - last 48 hr 04/16/23 04/17/23 04/17/23 19:54 08:07 12:44 POC Glucose 181 H 339 H 106 04/17/23 04/17/23 04/18/23 17:19 20:28 08:07 POC Glucose 231 H 210 H 189 H 04/18/23 04/18/23 12:38 17:35 POC Glucose 197 H 207 H Imaging Radiology Impressions: ITS Impressions Renal Ultrasound 04/07/23 07:47 IMPRESSION: Increased peak systolic velocity in the mid left renal artery suggestive renal artery stenosis. Follow-up imaging recommended, preferably CTA if normal renal function. Renal Ultrasound 04/07/23 07:47 IMPRESSION: Increased peak systolic velocity in the mid left renal artery suggestive renal artery stenosis. Follow-up imaging recommended, preferably CTA if normal renal function. Abdomen CTA 04/08/23 16:05 IMPRESSION: Atherosclerotic disease. No significant renal artery stenosis. Calcified plaque at both renal artery origins. Tortuous left renal artery and question mild left mid renal artery stenosis. Several indeterminate left renal lesions as described above. Follow-up dedicated renal imaging with either CT or MRI with and without contrast recommended. 1.5 x 2 cm right adrenal lesion. Given hypertension, endocrinology follow-up and additional imaging may be helpful. This could be done at the same time as renal imaging if clinically indicated. Fleischner guidelines were followed. Orbit X-Ray 04/09/23 15:37 IMPRESSION: No radiopaque foreign body seen in the skull. No radiopaque foreign body seen in the chest. The lungs are clear. Brain MRI 04/10/23 13:15 IMPRESSION: No acute intracranial abnormality. 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 Background changes of mild chronic microangiopathy. Abdomen/Pelvis CT 04/14/23 18:31 IMPRESSION: 1. Benign right adrenal adenoma. 2. Benign Bosniak class I and class II left renal cysts which need no further follow-up. 3. Other incidental findings as described above including grade 1 anterolisthesis of L4 upon L5 and marked calcific and noncalcific atherosclerotic changes in the aorta and iliofemoral vessels with possible left common iliac stenosis. Fleischner guidelines were followed. Medications Medications Current Medications Acetaminophen (Acetaminophen 325 Mg Tablet) 650 mg PO Q6H PRN PRN Reason: Headache/Pain Mild Scale (1-3) Last Admin: 04/18/23 15:13 Dose: 650 mg Al Hydroxide/Mg Hydroxide (Magnesium Hydrox/Alum Hydrox 30 Ml Oral.Susp) 30 ml PO Q6H PRN PRN Reason: Heartburn/Nausea Last Admin: 04/14/23 16:56 Dose: 30 ml Clonazepam (Clonazepam 1 Mg Tablet) 1 mg PO BEDTIME [facility] Last Admin: 04/17/23 21:36 Dose: 1 mg Clonazepam (Clonazepam 1 Mg Tablet) 1 mg PO BEDTIME PRN PRN Reason: Insomnia Ferrous Sulfate (Ferrous Sulfate 324 Mg Tablet.Dr) 324 mg PO DAILY [facility] Last Admin: 04/18/23 09:09 Dose: 324 mg Glipizide (Glipizide 5 Mg Tablet) 5 mg PO BIDWM [facility] Last Admin: 04/18/23 17:32 Dose: 5 mg Hydralazine HCl (Hydralazine Hcl 50 Mg Tablet) 50 mg PO TID [facility]; Protocol Last Admin: 04/18/23 15:13 Dose: 50 mg Hydroxyzine HCl (Hydroxyzine Hcl 25 Mg Tablet) 25 mg PO Q6H PRN PRN Reason: Anxiety Last Admin: 04/16/23 17:01 Dose: 25 mg Hydroxyzine HCl (Hydroxyzine Hcl 25 Mg Tablet) 25 mg PO BEDTIME [facility] Last Admin: 04/17/23 21:36 Dose: 25 mg Insulin Glargine (Insulin Glargine,Hum.Rec.Anlog 100 Unit/Ml 10 Ml Vial) 28 unit SUBCUT DAILY [facility] Last Admin: 04/18/23 09:09 Dose: 28 unit Insulin Human Lispro (Insulin Lispro 100 Unit/Ml 3 Ml Vial) 0 unit SUBCUT QIDACHS [facility]; Protocol Last Admin: 04/18/23 17:44 Dose: 6 unit Levetiracetam (Levetiracetam 250 Mg Tablet) 250 mg PO BID [facility] Last Admin: 04/18/23 09:09 Dose: 250 mg Losartan Potassium (Losartan Potassium 50 Mg Tablet) 100 mg PO DAILY [facility]; Protocol Last Admin: 04/18/23 09:09 Dose: 100 mg Magnesium Hydroxide (Milk Of Magnesia 30 Ml Oral.Susp) 30 ml PO DAILY PRN PRN Reason: Constipation Last Admin: 04/14/23 21:21 Dose: 30 ml Metformin HCl (Metformin Hcl Er 500 Mg Tab.Er.24h) 1,000 mg PO BID [facility] Last Admin: 04/18/23 09:10 Dose: 1,000 mg Nicotine Polacrilex (Nicotine Polacrilex 2 Mg Gum) 4 mg BUCCAL Q2H PRN PRN Reason: Nicotine Cravings Nifedipine (Nifedipine Er 30 Mg Tab.Er.24) 60 mg PO BEDTIME [facility]; Protocol Last Admin: 04/17/23 21:35 Dose: 60 mg Olanzapine (Olanzapine 10 Mg Tablet) 20 mg PO BEDTIME [facility] Last Admin: 04/17/23 21:35 Dose: 20 mg Oxcarbazepine (Oxcarbazepine 150 Mg Tablet) 450 mg PO BEDTIME [facility] Last Admin: 04/17/23 21:34 Dose: 450 mg Oxcarbazepine (Oxcarbazepine 300 Mg Tablet) 300 mg PO DAILY [facility] Last Admin: 04/18/23 09:10 Dose: 300 mg Allergies Allergies Allergy/AdvReac Type Severity Reaction Status Date / Time haloperidol Allergy Severe Nausea and Verified 03/17/23 14:24 Vomiting lithium Allergy Severe Nausea and Verified 03/17/23 14:24 Vomiting latex Allergy Mild Itching Verified 03/17/23 14:24 Assessment & Plan Assessment & Plan (1) Bipolar 1 disorder, depressed, severe: Status: Acute Code(s): F31.4 - Bipolar disorder, current episode depressed, severe, without psychotic features (2) Insulin dependent type 2 diabetes mellitus: Status: Acute Code(s): E11.9 - Type 2 diabetes mellitus without complications; 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 (3) Osteomyelitis of fourth toe of right foot: Status: Resolved Code(s): M86.9 - Osteomyelitis, unspecified (4) Cognitive and neurobehavioral dysfunction: Status: Acute Code(s): F09 - Unspecified mental disorder due to known physiological condition (5) Seizure disorder, complex partial: Status: Acute Code(s): G40.209 - Localization-related (focal) (partial) symptomatic epilepsy and epileptic syndromes with complex partial seizures, not intractable, without status epilepticus Plan Patient is depressed irritable in mixed state periods of regression was able to complete 1st part of [place] then did not completed with OT. The patient has difficulty with sleep restlessness in spite of lorazepam and trazodone and olanzapine at bedtime. Stop trazodone change Ativan to clonazepam increase Zyprexa back to 20 mg will to all at bedtime monitor had a poor response to regarding diabetes. Questionable allergy to Vraylar could consider Geodon if diabetes worsens discharge planning patient did allow referral to [facility] Continue oxcarbazepine 04/18: Continue treatment plan. Reason for continued inpatient stay Substantial Risk for: inability to function and rapid decompensation Time Spent With Patient Time: Total time managing care of this patient today ____ minutes.
[2023-04-18 20:09] LABS: Glucose, Whole Blood 247 mg/dL (60-115)
[2023-04-18 20:13] VITALS: BP 139/70; PULSE 105; RESP 16; TEMP 36.7; O2SAT 96
[2023-04-18 20:22] LABS: DHEA Sulfate 22 mcg/dL (5-167)
[2023-04-18 21:13] LABS: Glucose, Whole Blood 193 mg/dL (60-115)
[2023-04-18 21:15] VITALS: BP 175/82
[2023-04-18] MEDS: NIFEdipine ER 30 MG TAB.ER.24 60 MG PO (21:18)
[2023-04-18] MEDS: hydrOXYzine HCL 25 MG TABLET PO (21:18)
[2023-04-18] MEDS: clonazePAM 1 MG TABLET PO (21:19)
[2023-04-18] MEDS: OLANZapine 10 MG TABLET 20 MG PO (21:19)
[2023-04-18] MEDS: OXcarbazepine 150 MG TABLET 450 MG PO (21:19)
[2023-04-19 00:16] VITALS: BP 142/65; PULSE 101; RESP 18; TEMP 36.5; O2SAT 95
[2023-04-19] MEDS: clonazePAM 1 MG TABLET PO ×2 (00:21→20:29)
--- NOTE | 2023-04-19 02:00 | PC.NURSE ---
Raiza has been awake for most of the over shift stacker. Patient walked into the wall, appears sedated. Patient refusing to go to bed. Patient walked to her bed and placed into bed. Patient up out of bed 2 minutes later, stating that she cannot sleep.
--- NOTE | 2023-04-19 04:37 | PC.NURSE ---
This nurse observed patient as she walked into a wall at 0425. Patient then yelled ouch my foot . Nurse suggested patient to attempt to sleep in bed, patient refused.
[2023-04-19] MEDS: Acetaminophen 325 MG TABLET 650 MG PO ×2 (06:43→23:58)
[2023-04-19 08:37] LABS: Glucose, Whole Blood 198 mg/dL (60-115)
[2023-04-19 09:30] VITALS: BP 119/60; PULSE 85; RESP 16; TEMP 36.4; O2SAT 94
[2023-04-19] MEDS: levETIRAcetam 250 MG TABLET PO ×2 (09:38→20:28)
[2023-04-19] MEDS: Losartan Potassium 50 MG TABLET 100 MG PO (09:38)
[2023-04-19] MEDS: glipiZIDE 5 MG TABLET PO (09:38)
[2023-04-19] MEDS: Insulin Glargine,Hum.rec.anlog 100 UNIT/ML 10 ML VIAL 28 UNIT SUBCUT (09:38)
[2023-04-19] MEDS: Ferrous Sulfate 324 MG TABLET.DR PO (09:39)
[2023-04-19] MEDS: metFORMIN HCl ER 500 MG TAB.ER.24H 1000 MG PO ×2 (09:39→20:29)
[2023-04-19] MEDS: OXcarbazepine 300 MG TABLET PO (09:39)
[2023-04-19] MEDS: hydrALAZINE HCl 50 MG TABLET PO ×3 (09:39→20:28)
[2023-04-19] MEDS: hydrOXYzine HCL 25 MG TABLET PO ×2 (11:04→20:29)
[2023-04-19 12:00] VITALS: BP 142/74; PULSE 111; RESP 18; TEMP 36.3; O2SAT 95
[2023-04-19 12:44] LABS: Glucose, Whole Blood 75 mg/dL (60-115)
--- NOTE | 2023-04-19 13:21 | P.PNPSI_ITS ---
Subjective Subjective Date of Service: 04/19/23 Reason For Visit: Disorganized and dangerous behavior Interim History: Patient seen in psychiatric follow-up. Patient crying saying they lied to me. They said I would be able to take a shower at 3. She says she wants to get out of here. Follwed by saying she has no where to go because she can't return to the assisted because I need a higher level of care. Foot Xray final read is pending. Denies SI. Review of Systems Review of Systems unremarkable Yes all other systems are reviewed and are negative, Unobtainable due to mental condition and Unobtainable due to mental status Constitutional: Reports as per HPI Eyes: Reports as per HPI Reports as per HPI Cardiovascular: Reports as per HPI Respiratory: Reports as per HPI Gastrointestinal: Reports as per HPI Musculoskeletal: Reports as per HPI Skin/Breast: Reports as per HPI Reports as per HPI Psychiatric: Reports as per HPI Endocrine: Reports as per HPI Hematologic/Lymphatic: Reports as per HPI Allergic/Immunologic: Reports as per HPI Mental Status Exam Mental Status Exam Narrative: sad anxious looking ongoing pacing at times tearful wanting to leave when asked to reflect on this by this technical publications writer staying she is agreeable to stay in no she needs treatment Patient Appearance: Appropriate Patient Orientation: Person, Place and Situation Level of Consciousness: Drowsy Patient Behavior: Guarded, Restless, Anxious, Fatigued, Distractible, Isolative and Poor Eye Contact Mood Description: Withdrawn Affect Description: Depressed, Labile (tearful sad to angry yelling out) and Apprehensive Ability to Follow Directions: Fair Speech Pattern: Impoverished Memory Description: Episodic Impaired and Working Impaired Diagnostics Vital Signs (24Hr): Vital Signs - 24 hr 04/18/23 15:11 04/18/23 20:13 04/18/23 21:15 Temperature 98.1 F Pulse Rate 68 105 H Respiratory Rate 18 16 Blood Pressure 171/79 H 139/70 175/82 H Pulse Oximetry 96 96 Oxygen Delivery Method Room Air Room Air 04/19/23 00:16 04/19/23 09:30 Temperature 97.7 F 97.6 F Pulse Rate 101 H 85 Respiratory Rate 18 16 Blood Pressure 142/65 H 119/60 Pulse Oximetry 95 94 Oxygen Delivery Method Room Air Room Air BMI result Body Mass Index 24.0 Labs 04/06/23 11:24 04/15/23 08:39 Labs: Laboratory Results - last 48 hr 04/16/23 04/17/23 04/17/23 08:22 17:19 20:28 POC Glucose 231 H 210 H DHEA Sulfate 04/18/23 04/18/23 04/18/23 08:07 12:38 17:35 POC Glucose 189 H 197 H 207 H DHEA Sulfate 04/18/23 04/18/23 04/19/23 19:49 21:08 08:25 POC Glucose 247 H 193 H 198 H DHEA Sulfate 04/19/23 12:37 POC Glucose 75 DHEA Sulfate Imaging Radiology Impressions: ITS Impressions Renal Ultrasound 04/07/23 07:47 IMPRESSION: Increased peak systolic velocity in the mid left renal artery suggestive renal artery stenosis. Follow-up imaging recommended, preferably CTA if normal renal function. Renal Ultrasound 04/07/23 07:47 IMPRESSION: Increased peak systolic velocity in the mid left renal artery suggestive renal artery stenosis. Follow-up imaging recommended, preferably CTA if normal renal function. Abdomen CTA 04/08/23 16:05 IMPRESSION: Atherosclerotic disease. No significant renal artery stenosis. Calcified plaque at both renal artery origins. Tortuous left renal artery and question mild left mid renal artery stenosis. Several indeterminate left renal lesions as described above. Follow-up dedicated renal imaging with either CT or MRI with and without contrast recommended. 1.5 x 2 cm right adrenal lesion. Given hypertension, endocrinology follow-up and additional imaging may be helpful. This could be done at the same time as renal imaging if clinically indicated. Fleischner guidelines were followed. Orbit X-Ray 04/09/23 15:37 IMPRESSION: No radiopaque foreign body seen in the skull. No radiopaque foreign body seen in the chest. The lungs are clear. Brain MRI 04/10/23 13:15 IMPRESSION: No acute intracranial abnormality. 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 Background changes of mild chronic microangiopathy. Abdomen/Pelvis CT 04/14/23 18:31 IMPRESSION: 1. Benign right adrenal adenoma. 2. Benign Bosniak class I and class II left renal cysts which need no further follow-up. 3. Other incidental findings as described above including grade 1 anterolisthesis of L4 upon L5 and marked calcific and noncalcific atherosclerotic changes in the aorta and iliofemoral vessels with possible left common iliac stenosis. Fleischner guidelines were followed. Medications Medications Current Medications Acetaminophen (Acetaminophen 325 Mg Tablet) 650 mg PO Q6H PRN PRN Reason: Headache/Pain Mild Scale (1-3) Last Admin: 04/19/23 06:43 Dose: 650 mg Al Hydroxide/Mg Hydroxide (Magnesium Hydrox/Alum Hydrox 30 Ml Oral.Susp) 30 ml PO Q6H PRN PRN Reason: Heartburn/Nausea Last Admin: 04/14/23 16:56 Dose: 30 ml Clonazepam (Clonazepam 1 Mg Tablet) 1 mg PO BEDTIME ONEL Last Admin: 04/18/23 21:19 Dose: 1 mg Clonazepam (Clonazepam 1 Mg Tablet) 1 mg PO BEDTIME PRN PRN Reason: Insomnia Last Admin: 04/19/23 00:21 Dose: 1 mg Ferrous Sulfate (Ferrous Sulfate 324 Mg Tablet.) 324 mg PO DAILY ONEL Last Admin: 04/19/23 09:39 Dose: 324 mg Glipizide (Glipizide 5 Mg Tablet) 5 mg PO BIDWM ONEL Last Admin: 04/19/23 09:38 Dose: 5 mg Hydralazine HCl (Hydralazine Hcl 50 Mg Tablet) 50 mg PO TID ONEL; Protocol Last Admin: 04/19/23 09:39 Dose: 50 mg Hydroxyzine HCl (Hydroxyzine Hcl 25 Mg Tablet) 25 mg PO Q6H PRN PRN Reason: Anxiety Last Admin: 04/19/23 11:04 Dose: 25 mg Hydroxyzine HCl (Hydroxyzine Hcl 25 Mg Tablet) 25 mg PO BEDTIME ONEL Last Admin: 04/18/23 21:18 Dose: 25 mg Insulin Glargine (Insulin Glargine,Hum.Rec.Anlog 100 Unit/Ml 10 Ml Vial) 28 unit SUBCUT DAILY ON[facility] Last Admin: 04/19/23 09:38 Dose: 28 unit Insulin Human Lispro (Insulin Lispro 100 Unit/Ml 3 Ml Vial) 0 unit SUBCUT QIDACHS ONEL; Protocol Last Admin: 04/19/23 09:46 Dose: Not Given Levetiracetam (Levetiracetam 250 Mg Tablet) 250 mg PO BID [facility] Last Admin: 04/19/23 09:38 Dose: 250 mg Losartan Potassium (Losartan Potassium 50 Mg Tablet) 100 mg PO DAILY ON[facility]; Protocol Last Admin: 04/19/23 09:38 Dose: 100 mg Magnesium Hydroxide (Milk Of Magnesia 30 Ml Oral.Susp) 30 ml PO DAILY PRN PRN Reason: Constipation Last Admin: 04/14/23 21:21 Dose: 30 ml Metformin HCl (Metformin Hcl Er 500 Mg Tab.Er.24h) 1,000 mg PO BID ONEL Last Admin: 04/19/23 09:39 Dose: 1,000 mg Nicotine Polacrilex (Nicotine Polacrilex 2 Mg Gum) 4 mg BUCCAL Q2H PRN PRN Reason: Nicotine Cravings Nifedipine (Nifedipine Er 30 Mg Tab.Er.24) 60 mg PO BEDTIME ON[facility]; Protocol Last Admin: 04/18/23 21:18 Dose: 60 mg Olanzapine (Olanzapine 10 Mg Tablet) 20 mg PO BEDTIME ONEL Last Admin: 04/18/23 21:19 Dose: 20 mg Oxcarbazepine (Oxcarbazepine 150 Mg Tablet) 450 mg PO BEDTIME ON[facility] Last Admin: 04/18/23 21:19 Dose: 450 mg Oxcarbazepine (Oxcarbazepine 300 Mg Tablet) 300 mg PO DAILY ON[facility] Last Admin: 04/19/23 09:39 Dose: 300 mg Allergies Allergies Allergy/AdvReac Type Severity Reaction Status Date / Time haloperidol Allergy Severe Nausea and Verified 03/17/23 14:24 Vomiting lithium Allergy Severe Nausea and Verified 03/17/23 14:24 Vomiting latex Allergy Mild Itching Verified 03/17/23 14:24 Assessment & Plan Assessment & Plan (1) Bipolar 1 disorder, depressed, severe: Status: Acute Code(s): F31.4 - Bipolar disorder, current episode depressed, severe, without psychotic features (2) Insulin dependent type 2 diabetes mellitus: Status: Acute Code(s): E11.9 - Type 2 diabetes mellitus without complications; Z79.4 - assisted (current) use of insulin (3) Osteomyelitis of fourth toe of right foot: Status: Resolved Code(s): M86.9 - Osteomyelitis, unspecified (4) Cognitive and neurobehavioral dysfunction: Status: Acute Code(s): F09 - Unspecified mental disorder due to known physiological condition (5) Seizure disorder, complex partial: Status: Acute Code(s): G40.209 - Localization-related (focal) (partial) symptomatic epilepsy and epileptic syndromes with complex partial seizures, not intractable, without status epilepticus Plan Patient is depressed irritable in mixed state periods of regression was able to complete 1st part of [place] then did not completed with OT. The patient has difficulty with sleep restlessness in spite of lorazepam and trazodone and olanzapine at bedtime. Stop trazodone change Ativan to clonazepam increase Zyprexa back to 20 mg will to all at bedtime monitor had a poor response to regarding diabetes. Questionable allergy to Vraylar could consider Geodon if diabetes worsens discharge planning patient did allow referral to [facility] Continue oxcarbazepine 04/18: Continue treatment plan. 04/19: FU on final results of foot Xray. Continue treatment plan. Reason for continued inpatient stay Substantial Risk for: inability to function and rapid decompensation Time Spent With Patient Time: Total time managing care of this patient today ____ minutes.
[2023-04-19 20:10] VITALS: BP 146/69; PULSE 121; RESP 18; TEMP 36.8; O2SAT 93
[2023-04-19] MEDS: NIFEdipine ER 30 MG TAB.ER.24 60 MG PO (20:28)
[2023-04-19] MEDS: OLANZapine 10 MG TABLET 20 MG PO (20:28)
[2023-04-19] MEDS: OXcarbazepine 150 MG TABLET 450 MG PO (20:29)
[2023-04-19 21:04] LABS: Glucose, Whole Blood 222 mg/dL (60-115)
[2023-04-19] MEDS: Insulin Lispro 100 UNIT/ML 3 ML VIAL SUBCUT (21:08)
[2023-04-20 00:25] VITALS: RESP 18
[2023-04-20] MEDS: Acetaminophen 325 MG TABLET 650 MG PO ×2 (06:20→20:44)
[2023-04-20 08:00] VITALS: BP 139/63; PULSE 93; RESP 20; TEMP 36.9; O2SAT 98
[2023-04-20 08:22] LABS: Glucose, Whole Blood 126 mg/dL (60-115)
[2023-04-20] MEDS: glipiZIDE 5 MG TABLET PO ×2 (08:59→17:15)
[2023-04-20] MEDS: Ferrous Sulfate 324 MG TABLET.DR PO (08:59)
[2023-04-20] MEDS: hydrALAZINE HCl 50 MG TABLET PO ×3 (08:59→20:43)
[2023-04-20] MEDS: OXcarbazepine 300 MG TABLET PO (09:00)
[2023-04-20] MEDS: Losartan Potassium 50 MG TABLET 100 MG PO (09:01)
[2023-04-20] MEDS: metFORMIN HCl ER 500 MG TAB.ER.24H 1000 MG PO ×2 (09:01→20:43)
[2023-04-20] MEDS: levETIRAcetam 250 MG TABLET PO ×2 (09:01→20:43)
[2023-04-20] MEDS: Insulin Glargine,Hum.rec.anlog 100 UNIT/ML 10 ML VIAL 28 UNIT SUBCUT (09:02)
[2023-04-20] MEDS: Milk of Magnesia 30 ML ORAL.SUSP PO (09:23)
[2023-04-20 11:54] LABS: Glucose, Whole Blood 173 mg/dL (60-115)
[2023-04-20 12:00] VITALS: BP 125/58; PULSE 95; RESP 18; TEMP 36.2; O2SAT 96
[2023-04-20] MEDS: Insulin Lispro 100 UNIT/ML 3 ML VIAL SUBCUT ×3 (12:52→20:48)
--- NOTE | 2023-04-20 14:40 | HO.PSYCHPN ---
Subjective Subjective Date of Service: 04/20/23 Reason For Visit: Disorganized and dangerous behavior Subjective Notes: Conditional Voluntary and 3 Day Healthcare Proxy: Yes (not invoked) Interim History: The patient is seen in psychiatric follow-up. The patient is depressed irritable and reactive. She will often throw herself backwards when she gets frustrated difficult to get a clear history. Again reviewed with the patient her conditional voluntary she at times states she wants to leave the hospital but then will stay she knows that she can not leave the hospital and when asked to explain if she wants to put in a 3 day she she has generally said no one asked to clarify. Today the patient did states she was quite frustrated and and when asked to clarify she did state she wanted to put in a 3 day notice and this technical writer and editor fill that out for her. Patient continues to take a lot of intermittent naps during the day difficulty sleeping at night has not wanted to recall condition her sleep cycle. The patient is on oxcarbazepine Keppra has been lowered she remains is depressed Medication Compliance: Yes Review of Systems Acute medical concerns: Yes Hypertension diabetes awaiting results from metanephrines Mental Status Exam Mental Status Exam Narrative: Who patient states she wants leave the hospital when asked to clarify this time she did not say she knew she was not ready to leave but stated she wished to put in a 3 day Patient Appearance: Appropriate Patient Orientation: Person, Place and Situation Level of Consciousness: Drowsy and Restless Patient Behavior: Restless, Anxious, Fatigued, Distractible, Isolative, Impulsive and Pacing Mood Description: Withdrawn Affect Description: Depressed, Labile (tearful sad to angry yelling out) and Apprehensive Ability to Follow Directions: Fair Speech Pattern: Impoverished Memory Description: Episodic Impaired Hallucinations: None Delusions: Not Present Thought Content: positive for [place], positive for Preoccupation, negative for Suicidal Ideation or negative for Homicidal Ideation Depressive Symptoms: Increased Anxiety, Insomnia, Crying Spells, Unhappiness and Difficulty Concentrating Judgement: Fair Judgement and Insight: Patient had been cooperative with medical testing and has been cooperative with medication changes. Unfortunately when asked pertinent questions at times regarding her history patient will throw herself backwards Diagnostics Vital Signs (24Hr): Vital Signs - 24 hr 04/19/23 20:10 04/20/23 00:25 04/20/23 08:00 Temperature 98.2 F 98.4 F Pulse Rate 121 H 93 Respiratory Rate 18 18 20 Blood Pressure 146/69 H 139/63 Pulse Oximetry 93 98 Oxygen Delivery Method Room Air Room Air 04/20/23 12:00 Temperature 97.1 F Pulse Rate 95 Respiratory Rate 18 Blood Pressure 125/58 L Pulse Oximetry 96 Oxygen Delivery Method Room Air BMI result Body Mass Index 24.0 Labs 04/06/23 11:24 04/15/23 08:39 Labs: Laboratory Results - last 48 hr 04/16/23 04/18/23 04/18/23 08:22 17:35 19:49 POC Glucose 207 H 247 H DHEA Sulfate 22 04/18/23 04/19/23 04/19/23 21:08 08:25 12:37 POC Glucose 193 H 198 H 75 DHEA Sulfate 04/19/23 04/20/23 04/20/23 20:59 08:18 11:49 POC Glucose 222 H 126 H 173 H DHEA Sulfate Imaging Radiology Impressions: ITS Impressions Renal Ultrasound 04/07/23 07:47 IMPRESSION: Increased peak systolic velocity in the mid left renal artery suggestive renal artery stenosis. Follow-up imaging recommended, preferably CTA if normal renal function. Renal Ultrasound 04/07/23 07:47 IMPRESSION: Increased peak systolic velocity in the mid left renal artery suggestive renal artery stenosis. Follow-up imaging recommended, preferably CTA if normal renal function. Abdomen CTA 04/08/23 16:05 IMPRESSION: Atherosclerotic disease. No significant renal artery stenosis. Calcified plaque at both renal artery origins. Tortuous left renal artery and question mild left mid renal artery stenosis. Several indeterminate left renal lesions as described above. Follow-up dedicated renal imaging with either CT or MRI with and without contrast recommended. 1.5 x 2 cm right adrenal lesion. Given hypertension, endocrinology follow-up and additional imaging may be helpful. This could be done at the same time as renal imaging if clinically indicated. Fleischner guidelines were followed. Orbit X-Ray 04/09/23 15:37 IMPRESSION: No radiopaque foreign body seen in the skull. No radiopaque foreign body seen in the chest. The lungs are clear. Brain MRI 04/10/23 13:15 IMPRESSION: No acute intracranial abnormality. 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 Background changes of mild chronic microangiopathy. Abdomen/Pelvis CT 04/14/23 18:31 IMPRESSION: 1. Benign right adrenal adenoma. 2. Benign Bosniak class I and class II left renal cysts which need no further follow-up. 3. Other incidental findings as described above including grade 1 anterolisthesis of L4 upon L5 and marked calcific and noncalcific atherosclerotic changes in the aorta and iliofemoral vessels with possible left common iliac stenosis. Fleischner guidelines were followed. Foot X-Ray 04/18/23 16:28 IMPRESSION: No acute fracture or dislocation. Interval amputation of the fourth toe. Erosive destructive changes of the fourth metatarsal head and periosteal reaction suggestive of osteomyelitis. Periosteal reaction of the shaft of the third metatarsal bone also questionable for osteomyelitis. Question osteomyelitis and pathologic fracture of the base of the proximal phalanx of the third toe. Erosive changes of the distal tuft of the great toe questionable for osteomyelitis as well. Medications Medications Current Medications Acetaminophen (Acetaminophen 325 Mg Tablet) 650 mg PO Q6H PRN PRN Reason: Headache/Pain Mild Scale (1-3) Last Admin: 04/20/23 06:20 Dose: 650 mg Al Hydroxide/Mg Hydroxide (Magnesium Hydrox/Alum Hydrox 30 Ml Oral.Susp) 30 ml PO Q6H PRN PRN Reason: Heartburn/Nausea Last Admin: 04/14/23 16:56 Dose: 30 ml Clonazepam (Clonazepam 1 Mg Tablet) 1 mg PO BEDTIME ONEL Last Admin: 04/19/23 20:29 Dose: 1 mg Clonazepam (Clonazepam 1 Mg Tablet) 1 mg PO BEDTIME PRN PRN Reason: Insomnia Last Admin: 04/19/23 00:21 Dose: 1 mg Ferrous Sulfate (Ferrous Sulfate 324 Mg Tablet.Dr) 324 mg PO DAILY ONEL Last Admin: 04/20/23 08:59 Dose: 324 mg Glipizide (Glipizide 5 Mg Tablet) 5 mg PO BIDWM ONEL Last Admin: 04/20/23 08:59 Dose: 5 mg Hydralazine HCl (Hydralazine Hcl 50 Mg Tablet) 50 mg PO TID ONEL; Protocol Last Admin: 04/20/23 08:59 Dose: 50 mg Hydroxyzine HCl (Hydroxyzine Hcl 25 Mg Tablet) 25 mg PO Q6H PRN PRN Reason: Anxiety Last Admin: 04/19/23 11:04 Dose: 25 mg Hydroxyzine HCl (Hydroxyzine Hcl 25 Mg Tablet) 25 mg PO BEDTIME [facility] Last Admin: 04/19/23 20:29 Dose: 25 mg Insulin Glargine (Insulin Glargine,Hum.Rec.Anlog 100 Unit/Ml 10 Ml Vial) 28 unit SUBCUT DAILY [facility] Last Admin: 04/20/23 09:02 Dose: 28 unit Insulin Human Lispro (Insulin Lispro 100 Unit/Ml 3 Ml Vial) 0 unit SUBCUT QIDACHS [facility]; Protocol Last Admin: 04/20/23 12:52 Dose: 4 unit Levetiracetam (Levetiracetam 250 Mg Tablet) 250 mg PO BID [facility] Last Admin: 04/20/23 09:01 Dose: 250 mg Losartan Potassium (Losartan Potassium 50 Mg Tablet) 100 mg PO DAILY [facility]; Protocol Last Admin: 04/20/23 09:01 Dose: 100 mg Magnesium Hydroxide (Milk Of Magnesia 30 Ml Oral.Susp) 30 ml PO DAILY PRN PRN Reason: Constipation Last Admin: 04/20/23 09:23 Dose: 30 ml Metformin HCl (Metformin Hcl Er 500 Mg Tab.Er.24h) 1,000 mg PO BID [facility] Last Admin: 04/20/23 09:01 Dose: 1,000 mg Nicotine Polacrilex (Nicotine Polacrilex 2 Mg Gum) 4 mg BUCCAL Q2H PRN PRN Reason: Nicotine Cravings Nifedipine (Nifedipine Er 30 Mg Tab.Er.24) 60 mg PO BEDTIME [facility]; Protocol Last Admin: 04/19/23 20:28 Dose: 60 mg Olanzapine (Olanzapine 10 Mg Tablet) 20 mg PO BEDTIME [facility] Last Admin: 04/19/23 20:28 Dose: 20 mg Oxcarbazepine (Oxcarbazepine 150 Mg Tablet) 450 mg PO BEDTIME [facility] Last Admin: 04/19/23 20:29 Dose: 450 mg Oxcarbazepine (Oxcarbazepine 300 Mg Tablet) 300 mg PO DAILY [facility] Last Admin: 04/20/23 09:00 Dose: 300 mg Allergies Allergies Allergy/AdvReac Type Severity Reaction Status Date / Time haloperidol Allergy Severe Nausea and Verified 03/17/23 14:24 Vomiting lithium Allergy Severe Nausea and Verified 03/17/23 14:24 Vomiting latex Allergy Mild Itching Verified 03/17/23 14:24 Assessment & Plan Assessment & Plan (1) Bipolar 1 disorder, depressed, severe: Status: Acute Code(s): F31.4 - Bipolar disorder, current episode depressed, severe, without psychotic features (2) Insulin dependent type 2 diabetes mellitus: Status: Acute Code(s): E11.9 - Type 2 diabetes mellitus without complications; Z79.4 - intermediate (current) use of insulin (3) Osteomyelitis of fourth toe of right foot: Status: Resolved Code(s): M86.9 - Osteomyelitis, unspecified (4) Cognitive and neurobehavioral dysfunction: Status: Acute Code(s): F09 - Unspecified mental disorder due to known physiological condition (5) Seizure disorder, complex partial: Status: Acute Code(s): G40.209 - Localization-related (focal) (partial) symptomatic epilepsy and epileptic syndromes with complex partial seizures, not intractable, without status epilepticus Plan Patient is depressed irritable in mixed state periods of regression was able to complete 1st part of [place] then did not completed with OT. The patient has difficulty with sleep restlessness in spite of lorazepam and trazodone and olanzapine at bedtime. Stop trazodone change Ativan to clonazepam increase Zyprexa back to 20 mg will to all at bedtime monitor had a poor response to regarding diabetes. Questionable allergy to Vraylar could consider Geodon if diabetes worsens discharge planning patient did allow referral to [facility] Continue oxcarbazepine 04/18: Continue treatment plan. 04/19: FU on final results of foot Xray. Continue treatment plan. 04/20/2025 Patient did verbally submit a 3 day after conversation. A week previously I we did halt a section 7 process as the patient did sign a conditional voluntary which at the time she said was of her own free will and was accepting treatment and seem to understand that time that she needed further treatment and we would help her with the discharge plan. We have considered invoking healthcare proxy at times patient has generally been cooperative with medical treatment she understands she has hypertension diabetes understood brain MRI was to look for any evidence of brain injury or process that might be interfering. Patient does have a significantly impaired frustration tolerance she is depressed and irritable had not been taking care of herself over the past few months prior to admission leading to medical difficulties. At time she seems to understand this at other times not. She has not been cooperative with more intensive cognitive testing she does have some word-finding problems at times Continue diabetes and antihypertensive treatment Evaluate for commitment in treatment plan Patient educated on: diagnosis, medication risk/benefits and medical condition Informed Consent: further education needed Reason for continued inpatient stay Substantial Risk for: rapid decompensation and med/psych decompensation Time Spent With Patient Time: Total time managing care of this patient today ____ minutes.
[2023-04-20 16:10] VITALS: BP 163/76
[2023-04-20 17:27] LABS: Glucose, Whole Blood 299 mg/dL (60-115)
[2023-04-20 20:20] VITALS: BP 184/86; PULSE 105; RESP 18; TEMP 36.7; O2SAT 97
[2023-04-20 20:33] LABS: Glucose, Whole Blood 196 mg/dL (60-115)
[2023-04-20] MEDS: hydrOXYzine HCL 25 MG TABLET PO ×2 (20:43→23:19)
[2023-04-20] MEDS: OLANZapine 10 MG TABLET 20 MG PO (20:43)
[2023-04-20] MEDS: NIFEdipine ER 30 MG TAB.ER.24 60 MG PO (20:43)
[2023-04-20] MEDS: OXcarbazepine 150 MG TABLET 450 MG PO (20:44)
[2023-04-20] MEDS: clonazePAM 1 MG TABLET PO (20:44)
[2023-04-20] MEDS: Magnesium Hydrox/Alum Hydrox 30 ML ORAL.SUSP PO (23:27)
[2023-04-21] MEDS: clonazePAM 1 MG TABLET PO ×3 (03:50→20:40)
[2023-04-21] MEDS: Acetaminophen 325 MG TABLET 650 MG PO ×3 (03:51→23:45)
[2023-04-21 05:15] VITALS: BP 149/70; PULSE 100
[2023-04-21] MEDS: Milk of Magnesia 30 ML ORAL.SUSP PO (06:51)
[2023-04-21 08:54] LABS: Glucose, Whole Blood 213 mg/dL (60-115)
[2023-04-21 08:59] VITALS: BP 163/71; PULSE 94; RESP 16; TEMP 36.7; O2SAT 96
[2023-04-21] MEDS: metroNIDAZOLE 500 MG TABLET PO ×2 (09:07→15:31)
[2023-04-21] MEDS: Ferrous Sulfate 324 MG TABLET.DR PO (09:07)
[2023-04-21] MEDS: levoFLOXacin 500 MG TABLET PO (09:07)
[2023-04-21] MEDS: Losartan Potassium 50 MG TABLET 100 MG PO (09:07)
[2023-04-21] MEDS: OXcarbazepine 300 MG TABLET PO (09:07)
[2023-04-21] MEDS: metFORMIN HCl ER 500 MG TAB.ER.24H 1000 MG PO ×2 (09:07→20:13)
[2023-04-21] MEDS: hydrALAZINE HCl 50 MG TABLET PO ×3 (09:08→20:13)
[2023-04-21] MEDS: levETIRAcetam 250 MG TABLET PO (09:08)
[2023-04-21] MEDS: glipiZIDE 5 MG TABLET PO ×2 (09:08→17:29)
[2023-04-21] MEDS: Insulin Lispro 100 UNIT/ML 3 ML VIAL SUBCUT ×3 (09:14→20:40)
[2023-04-21] MEDS: Insulin Glargine,Hum.rec.anlog 100 UNIT/ML 10 ML VIAL 28 UNIT SUBCUT (09:14)
[2023-04-21 12:13] LABS: MANUAL DIFF FLAG NO
[2023-04-21 12:34] LABS: Glucose, Whole Blood 107 mg/dL (60-115)
[2023-04-21 12:40] LABS: Basophils Percent Auto 0.2 % (0-2); Eosinophils Absolute Auto 0.1 X10*3/uL (0.0-0.4); Eosinophils Percent Auto 0.7 % (0-4); Hematocrit 28.3 % (37.0-47.0); Hemoglobin 9.7 g/dl (12.0-16.0); Imm Gran Abs Auto 0.05 X10*3/uL (0.00-0.03); Imm Gran Pct Auto 0.6 % (0.0-0.4); Lymphocytes Absolute Auto 1.3 X10*3/uL (1.2-4.9); Mean Corpuscular HGB Conc 34.3 g/dl (31.0-35.0); Mean Corpuscular Hemoglobin 28.4 pg (27.0-33.0); Mean Platelet Volume 8.8 fL (9.4-12.3); Monocytes Absolute Auto 0.9 X10*3/uL (0.1-1.2); Monocytes Percent Auto 10.8 % (2-11); Neutrophils Absolute Auto 6.3 x10*3/uL (2.0-8.3); Neutrophils Percent Auto 72.7 % (45-73); Platelet Count 372 X10*3/uL (160-400); Red Blood Count 3.41 X10*6/uL (4.20-5.50); Red Cell Distribution Width 14.5 % (11.0-16.0); White Blood Count 8.6 X10*3/uL (4.8-10.8)
[2023-04-21 12:56] LABS: Alanine Aminotransferase 41 U/L (0-31); Albumin Level 3.9 g/dL (3.5-5.0); Alkaline Phosphatase 141 U/L (39-117); Anion Gap 13 (12-20); Aspartate Amino Transferase 41 U/L (5-31); Bilirubin Total 0.2 mg/dL (0.0-1.0); Blood Urea Nitrogen 15 mg/dL (9-16); Calcium 9.1 mg/dL (8.4-10.2); Carbon Dioxide 20 mmol/L (22-29); Chloride 90 mmol/L (96-108); Estimated Glomerular Filt Rate > 60; Glucose Random 92 mg/dL (60-115); Potassium 4.9 mmol/L (3.3-5.1); Sodium 118 mmol/L (135-145); Total Protein 6.6 g/dL (6.5-8.0)
--- NOTE | 2023-04-21 13:08 | PM.EVENT ---
Event Note Date of Service: 04/21/23 Event Note: Notified of critical sodium level of 118. Last checked 04/06 and was 133. Pt is taking trileptal. Check urine osmolality, serum osmolality, urine sodium, urine creatinine. Fluid restrictions to 1-1.2 L daily. Check sodium q.4h unless osmolality studies are positive for SIADH. Recommend holding trileptal. Normocytic anemia noted, chronic, H.H stable, above transfusion threshold. Time Spent With Patient Time: Total time managing care of this patient today ____ minutes.
[2023-04-21 13:55] LABS: Sodium 120 mmol/L (135-145)
[2023-04-21] MEDS: Urea 15 GM POWDER 30 GM PO ×2 (14:13→20:14)
[2023-04-21 14:15] VITALS: BP 156/90; PULSE 96; O2SAT 95
[2023-04-21 14:48] LABS: Osmolality Urine 294 mosm/kg (373-1093)
[2023-04-21 14:53] LABS: Creatinine Urine 16.68 mg/dL
[2023-04-21] MEDS: Sodium Chloride Tab 1 GM TABLET PO ×2 (15:31→20:12)
[2023-04-21 15:39] LABS: Osmolality, Serum 259 mosm/kg (281-305)
[2023-04-21 17:24] LABS: Metanephrine, Free 55 pg/mL (<=57); Normetanephrines, Free 133 pg/mL (<=148); Total Metanephrine, Free 188 pg/mL (<=205)
[2023-04-21 17:27] LABS: Glucose, Whole Blood 195 mg/dL (60-115)
[2023-04-21 19:14] LABS: Sodium 119 mmol/L (135-145)
--- NOTE | 2023-04-21 19:19 | PC.NURSE ---
OG recieved a critical call from Salina Barrera in chemistry reporting [phone] [place] notified at 192
[2023-04-21] MEDS: hydrOXYzine HCL 25 MG TABLET PO (20:12)
[2023-04-21 20:13] LABS: Glucose, Whole Blood 191 mg/dL (60-115)
[2023-04-21] MEDS: OLANZapine 10 MG TABLET 20 MG PO (20:13)
[2023-04-21] MEDS: NIFEdipine ER 30 MG TAB.ER.24 60 MG PO (20:13)
[2023-04-21] MEDS: levETIRAcetam 500 MG TABLET PO (20:13)
--- NOTE | 2023-04-21 20:18 | P.PNPSI_ITS ---
Subjective Subjective Date of Service: 04/21/23 Reason For Visit: Disorganized and dangerous behavior Subjective Notes: Conditional Voluntary and 3 Day Guardianship: No Medical Problems Affecting Mental Status: Yes Interim History: Is is patient seen in psychiatric follow-up case reviewed in treatment team case reviewed in conference and [facility] hospitalist service. Patient does have a is 3 day notice he she understands she has bipolar disorder she is restless pacing poor sleep depressed mood quite irritable calling her healthcare proxy repeatedly during the day when frustrated with throwing herself back repeatedly not currently hitting her head. We had tried lowering Keppra and gradually increasing Trileptal labs today noted her sodium to be you 118 she is anemic this appears to be chronic. After discussion with hospitalist service plate patient was placed on urea and given sodium tablets nephrology consult had been placed. Patient irritable dysphoric pacing appear to have had negative recent reaction to Vraylar and now oxcarbazepine. Has had difficulty with sleep but takes frequent naps during the day. Has also been started on an antibiotic for presumed osteomyelitis by Dr. Villanueva. Medication Compliance: Yes Side effects from medications: Yes Attending Groups: Intermittent Review of Systems Acute medical concerns: Yes Had hyponatremia recent osteomyelitis Mental Status Exam Mental Status Exam Narrative: Is Patient Appearance: Unkempt Patient Orientation: Person, Place and Situation Level of Consciousness: Restless Patient Behavior: Restless, Wandering, Anxious, Fatigued, Distractible, Isolative, Impulsive and Pacing Behavior Comments: Oral facial dyskinesia noted ongoing Mood Description: Labile and Apprehensive Affect Description: Depressed, Labile (tearful sad to angry yelling out) and Apprehensive Ability to Follow Directions: Fair Speech Pattern: Impoverished Memory Description: Episodic Impaired Hallucinations: None Delusions: Not Present Thought Content: positive for [place], positive for Preoccupation, negative for Suicidal Ideation or negative for Homicidal Ideation Depressive Symptoms: Increased Anxiety, Insomnia, Increased Irritability, Unhappiness and Difficulty Concentrating Abnormal Motor Activity Signs and Symptoms: Restlessness Judgement: Fair Judgement and Insight: Patient had become overwhelmed at the thought of fluid restriction she continues to ask to leave the hospital and is aware she is placed a 3 day notice explain patient her sodium was decreased to 10 this year may be result of treatment with a mood stabilizing agent that we need to discontinue. She did understand this is she did state she had been on Depakote previously with good effect but had gained weight it she he understood she had a 3 day notice what this meant had also expressed that is his she was unsure she would be safe if left the hospital but she does understand she has side tension and diabetes Diagnostics Vital Signs (24Hr): Vital Signs - 24 hr 04/20/23 20:20 04/21/23 05:15 04/21/23 08:59 Temperature 98.1 F 98.1 F Pulse Rate 105 H 100 94 Respiratory Rate 18 16 Blood Pressure 184/86 H 149/70 H 163/71 H Pulse Oximetry 97 96 Oxygen Delivery Method Room Air Room Air 04/21/23 14:15 Temperature Pulse Rate 96 Respiratory Rate Blood Pressure 156/90 H Pulse Oximetry 95 Oxygen Delivery Method Room Air BMI result Body Mass Index 24.0 Labs 04/21/23 12:09 04/21/23 21:27 Labs: Laboratory Results - last 48 hr 04/15/23 04/19/23 04/20/23 08:39 20:59 08:18 WBC RBC Hgb Hct MCV MCH MCHC RDW Plt Count MPV Immature Gran % (Auto) Neut % (Auto) Lymph % (Auto) [place] % (Auto) Eos % (Auto) Baso % (Auto) Lymph # (Auto) [place] # (Auto) Eos # (Auto) Baso # (Auto) Abs Immat Gran (auto) Absolute Neuts (auto) Absolute Nucleated RBC Nucleated RBC % (auto) Sodium Potassium Chloride Carbon Dioxide Anion Gap BUN Creatinine Estim Creat Clear Calc Estimated GFR POC Glucose 222 H 126 H Random Glucose Osmolality Calcium Total Bilirubin AST ALT Alkaline Phosphatase Total Protein Albumin Plasma Free Metaneph 55 Plasma Free Normeta 133 Plas Total Metaneph 188 Urine Osmolality Ur Random Sodium Urine Creatinine 04/20/23 04/20/23 04/20/23 11:49 17:22 20:27 WBC RBC Hgb Hct MCV MCH MCHC RDW Plt Count MPV Immature Gran % (Auto) Neut % (Auto) Lymph % (Auto) [place] % (Auto) Eos % (Auto) Baso % (Auto) Lymph # (Auto) [place] # (Auto) Eos # (Auto) Baso # (Auto) Abs Immat Gran (auto) Absolute Neuts (auto) Absolute Nucleated RBC Nucleated RBC % (auto) Sodium Potassium Chloride Carbon Dioxide Anion Gap BUN Creatinine Estim Creat Clear Calc Estimated GFR POC Glucose 173 H 299 H 196 H Random Glucose Osmolality Calcium Total Bilirubin AST ALT Alkaline Phosphatase Total Protein Albumin Plasma Free Metaneph Plasma Free Normeta Plas Total Metaneph Urine Osmolality Ur Random Sodium Urine Creatinine 04/21/23 04/21/23 04/21/23 08:48 12:09 12:30 WBC 8.6 RBC 3.41 L Hgb 9.7 L Hct 28.3 L MCV 83.0 MCH 28.4 MCHC 34.3 RDW 14.5 Plt Count 372 MPV 8.8 L Immature Gran % (Auto) 0.6 H Neut % (Auto) 72.7 Lymph % (Auto) 15.0 L [place] % (Auto) 10.8 Eos % (Auto) 0.7 Baso % (Auto) 0.2 Lymph # (Auto) 1.3 [place] # (Auto) 0.9 Eos # (Auto) 0.1 Baso # (Auto) 0.0 Abs Immat Gran (auto) 0.05 H Absolute Neuts (auto) 6.3 Absolute Nucleated RBC 0.000 Nucleated RBC % (auto) 0.0 Sodium 118 L* Potassium 4.9 Chloride 90 L Carbon Dioxide 20 L Anion Gap 13 BUN 15 Creatinine 0.54 Estim Creat Clear Calc 98.0 Estimated GFR > 60 POC Glucose 213 H 107 Random Glucose 92 Osmolality Calcium 9.1 Total Bilirubin 0.2 AST 41 H ALT 41 H Alkaline Phosphatase 141 H Total Protein 6.6 Albumin 3.9 Plasma Free Metaneph Plasma Free Normeta Plas Total Metaneph Urine Osmolality Ur Random Sodium Urine Creatinine 04/21/23 04/21/23 04/21/23 13:28 14:00 17:23 WBC RBC Hgb Hct MCV MCH MCHC RDW Plt Count MPV Immature Gran % (Auto) Neut % (Auto) Lymph % (Auto) [place] % (Auto) Eos % (Auto) Baso % (Auto) Lymph # (Auto) [place] # (Auto) Eos # (Auto) Baso # (Auto) Abs Immat Gran (auto) Absolute Neuts (auto) Absolute Nucleated RBC Nucleated RBC % (auto) Sodium 120 L* Potassium Chloride Carbon Dioxide Anion Gap BUN Creatinine Estim Creat Clear Calc Estimated GFR POC Glucose 195 H Random Glucose Osmolality 259 L Calcium Total Bilirubin AST ALT Alkaline Phosphatase Total Protein Albumin Plasma Free Metaneph Plasma Free Normeta Plas Total Metaneph Urine Osmolality 294 L Ur Random Sodium 35.0 Urine Creatinine 16.68 04/21/23 04/21/23 18:50 20:08 WBC RBC Hgb Hct MCV MCH MCHC RDW Plt Count MPV Immature Gran % (Auto) Neut % (Auto) Lymph % (Auto) [place] % (Auto) Eos % (Auto) Baso % (Auto) Lymph # (Auto) [place] # (Auto) Eos # (Auto) Baso # (Auto) Abs Immat Gran (auto) Absolute Neuts (auto) Absolute Nucleated RBC Nucleated RBC % (auto) Sodium 119 L* Potassium Chloride Carbon Dioxide Anion Gap BUN Creatinine Estim Creat Clear Calc Estimated GFR POC Glucose 191 H Random Glucose Osmolality Calcium Total Bilirubin AST ALT Alkaline Phosphatase Total Protein Albumin Plasma Free Metaneph Plasma Free Normeta Plas Total Metaneph Urine Osmolality Ur Random Sodium Urine Creatinine Imaging Radiology Impressions: ITS Impressions Renal Ultrasound 04/07/23 07:47 IMPRESSION: Increased peak systolic velocity in the mid left renal artery suggestive renal artery stenosis. Follow-up imaging recommended, preferably CTA if normal renal function. Renal Ultrasound 04/07/23 07:47 IMPRESSION: Increased peak systolic velocity in the mid left renal artery suggestive renal artery stenosis. Follow-up imaging recommended, preferably CTA if normal renal function. Abdomen CTA 04/08/23 16:05 IMPRESSION: Atherosclerotic disease. No significant renal artery stenosis. Calcified plaque at both renal artery origins. Tortuous left renal artery and question mild left mid renal artery stenosis. Several indeterminate left renal lesions as described above. Follow-up dedicated renal imaging with either CT or MRI with and without contrast recommended. 1.5 x 2 cm right adrenal lesion. Given hypertension, endocrinology follow-up and additional imaging may be helpful. This could be done at the same time as renal imaging if clinically indicated. Fleischner guidelines were followed. Orbit X-Ray 04/09/23 15:37 IMPRESSION: No radiopaque foreign body seen in the skull. No radiopaque foreign body seen in the chest. The lungs are clear. Brain MRI 04/10/23 13:15 IMPRESSION: No acute intracranial abnormality. 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 Background changes of mild chronic microangiopathy. Abdomen/Pelvis CT 04/14/23 18:31 IMPRESSION: 1. Benign right adrenal adenoma. 2. Benign Bosniak class I and class II left renal cysts which need no further follow-up. 3. Other incidental findings as described above including grade 1 anterolisthesis of L4 upon L5 and marked calcific and noncalcific atherosclerotic changes in the aorta and iliofemoral vessels with possible left common iliac stenosis. Fleischner guidelines were followed. Foot X-Ray 04/18/23 16:28 IMPRESSION: No acute fracture or dislocation. Interval amputation of the fourth toe. Erosive destructive changes of the fourth metatarsal head and periosteal reaction suggestive of osteomyelitis. Periosteal reaction of the shaft of the third metatarsal bone also questionable for osteomyelitis. Question osteomyelitis and pathologic fracture of the base of the proximal phalanx of the third toe. Erosive changes of the distal tuft of the great toe questionable for osteomyelitis as well. Medications Medications Current Medications Acetaminophen (Acetaminophen 325 Mg Tablet) 650 mg PO Q6H PRN PRN Reason: Headache/Pain Mild Scale (1-3) Last Admin: 04/21/23 13:20 Dose: 650 mg Al Hydroxide/Mg Hydroxide (Magnesium Hydrox/Alum Hydrox 30 Ml Oral.Susp) 30 ml PO Q6H PRN PRN Reason: Heartburn/Nausea Last Admin: 04/20/23 23:27 Dose: 30 ml Clonazepam (Clonazepam 1 Mg Tablet) 1 mg PO BEDTIME ONEL Last Admin: 04/20/23 20:44 Dose: 1 mg Clonazepam (Clonazepam 1 Mg Tablet) 1 mg PO BEDTIME PRN PRN Reason: Insomnia Last Admin: 04/21/23 03:50 Dose: 1 mg Ferrous Sulfate (Ferrous Sulfate 324 Mg Tablet.Dr) 324 mg PO DAILY [facility] Last Admin: 04/21/23 09:07 Dose: 324 mg Glipizide (Glipizide 5 Mg Tablet) 5 mg PO BIDWM ONEL Last Admin: 04/21/23 17:29 Dose: 5 mg Hydralazine HCl (Hydralazine Hcl 50 Mg Tablet) 50 mg PO TID ONEL; Protocol Last Admin: 04/21/23 14:12 Dose: 50 mg Hydroxyzine HCl (Hydroxyzine Hcl 25 Mg Tablet) 25 mg PO Q6H PRN PRN Reason: Anxiety Last Admin: 04/20/23 23:19 Dose: 25 mg Hydroxyzine HCl (Hydroxyzine Hcl 25 Mg Tablet) 25 mg PO BEDTIME ONEL Last Admin: 04/20/23 20:43 Dose: 25 mg Insulin Glargine (Insulin Glargine,Hum.Rec.Anlog 100 Unit/Ml 10 Ml Vial) 28 unit SUBCUT DAILY [facility] Last Admin: 04/21/23 09:14 Dose: 28 unit Insulin Human Lispro (Insulin Lispro 100 Unit/Ml 3 Ml Vial) 0 unit SUBCUT QIDACHS [facility]; Protocol Last Admin: 04/21/23 17:29 Dose: 2 unit Levetiracetam (Levetiracetam 500 Mg Tablet) 500 mg PO BID [facility] Levofloxacin (Levofloxacin 500 Mg Tablet) 500 mg PO Q24H [facility] Last Admin: 04/21/23 09:07 Dose: 500 mg Losartan Potassium (Losartan Potassium 50 Mg Tablet) 100 mg PO DAILY@1200 [facility]; Protocol Magnesium Hydroxide (Milk Of Magnesia 30 Ml Oral.Susp) 30 ml PO DAILY PRN PRN Reason: Constipation Last Admin: 04/21/23 06:51 Dose: 30 ml Metformin HCl (Metformin Hcl Er 500 Mg Tab.Er.24h) 1,000 mg PO BID [facility] Last Admin: 04/21/23 09:07 Dose: 1,000 mg Metronidazole (Metronidazole 500 Mg Tablet) 500 mg PO Q8H [facility] Last Admin: 04/21/23 15:31 Dose: 500 mg Nicotine Polacrilex (Nicotine Polacrilex 2 Mg Gum) 4 mg BUCCAL Q2H PRN PRN Reason: Nicotine Cravings Nifedipine (Nifedipine Er 30 Mg Tab.Er.24) 60 mg PO BEDTIME [facility]; Protocol Last Admin: 04/20/23 20:43 Dose: 60 mg Olanzapine (Olanzapine 10 Mg Tablet) 20 mg PO BEDTIME [facility] Last Admin: 04/20/23 20:43 Dose: 20 mg Sodium Chloride (Sodium Chloride Tab 1 Gm Tablet) 1 gm PO BID [facility] Stop: 04/23/23 21:01 Last Admin: 04/21/23 15:31 Dose: 1 gm Urea (Urea 15 Gm Powder) 30 gm PO BID [facility] Stop: 04/23/23 21:01 Last Admin: 04/21/23 14:13 Dose: 30 gm Allergies Allergies Allergy/AdvReac Type Severity Reaction Status Date / Time haloperidol Allergy Severe Nausea and Verified 03/17/23 14:24 Vomiting lithium Allergy Severe Nausea and Verified 03/17/23 14:24 Vomiting latex Allergy Mild Itching Verified 03/17/23 14:24 Assessment & Plan Assessment & Plan (1) Bipolar 1 disorder, depressed, severe: Status: Acute Code(s): F31.4 - Bipolar disorder, current episode depressed, severe, without psychotic features (2) Insulin dependent type 2 diabetes mellitus: Status: Acute Code(s): E11.9 - Type 2 diabetes mellitus without complications; Z79.4 - jail (current) use of insulin (3) Osteomyelitis of fourth toe of right foot: Status: Resolved Code(s): M86.9 - Osteomyelitis, unspecified (4) Cognitive and neurobehavioral dysfunction: Status: Acute Code(s): F09 - Unspecified mental disorder due to known physiological condition (5) Seizure disorder, complex partial: Status: Acute Code(s): G40.209 - Localization-related (focal) (partial) symptomatic epilepsy and epileptic syndromes with complex partial seizures, not intractable, without status epilepticus (6) Hyponatremia: Status: Acute Code(s): E87.1 - Hypo-osmolality and hyponatremia Plan Patient is depressed irritable in mixed state periods of regression was able to complete 1st part of Barber then did not completed with OT. The patient has difficulty with sleep restlessness in spite of lorazepam and trazodone and olanzapine at bedtime. Stop trazodone change Ativan to clonazepam increase Zyprexa back to 20 mg will to all at bedtime monitor had a poor response to regarding diabetes. Questionable allergy to Vraylar could consider Geodon if diabetes worsens discharge planning patient did allow referral to [facility] Continue oxcarbazepine 04/18: Continue treatment plan. 04/19: FU on final results of foot Xray. Continue treatment plan. 04/20/2025 Patient did verbally submit a 3 day after conversation. A week previously I we did halt a section 7 process as the patient did sign a conditional voluntary which at the time she said was of her own free will and was accepting treatment and seem to understand that time that she needed further treatment and we would help her with the discharge plan. We have considered invoking healthcare proxy at times patient has generally been cooperative with medical treatment she understands she has hypertension diabetes understood brain MRI was to look for any evidence of brain injury or process that might be interfering. Patient does have a significantly impaired frustration tolerance she is depressed and irritable had not been taking care of herself over the past few months prior to admission leading to medical difficulties. At time she seems to understand this at other times not. She has not been cooperative with more intensive cognitive testing she does have some word-finding problems at times Continue diabetes and antihypertensive treatment Evaluate for commitment in treatment plan 04/21/2023 Patient remains dysphoric in irritable poor sleep somewhat Behavioral old his disrupted is takes medication and treatment with structure but impulsive low frustration tolerance poor concentration regarding being a being able to manage this herself at this time. Three day notice continues evaluate need for commitment and treatment plan also evaluate consideration of invoking healthcare proxy which would be S some diff if he is commitment approved. Reviewed repeatedly with hospitalist service they did not feel patient required medical transfer and given hyponatremia 118 with presumed gradual change no major change in level of alertness that they felt could be treated on the psychiatric unit. Urea STARTED SALT TABLETS STARTED Monitor cognition and alertness monitor response to to treatment hospitalist service following nephrology consult Will start low-dose Depakote and clonidine see if this is helpful for mood and sleep Patient educated on: medical condition Informed Consent: further education needed Reason for continued inpatient stay Substantial Risk for: inability to function, rapid decompensation and med/psych decompensation Time Spent With Patient Time: Total time managing care of this patient today _60___ minutes.
[2023-04-21 20:37] VITALS: BP 177/73; PULSE 99; RESP 20; TEMP 36.3; O2SAT 100
[2023-04-21 21:46] LABS: Sodium 118 mmol/L (135-145)
[2023-04-21 22:20] VITALS: BP 121/66; PULSE 94; RESP 18; TEMP 36.3; O2SAT 100
[2023-04-21] MEDS: cloNIDine HCL 0.1 MG TABLET PO (23:46)
[2023-04-21] MEDS: Divalproex Sodium 250 MG TABLET.DR PO (23:47)
[2023-04-22] MEDS: metroNIDAZOLE 500 MG TABLET PO ×2 (00:15→10:58)
[2023-04-22 01:28] LABS: Sodium 121 mmol/L (135-145)
[2023-04-22 09:00] VITALS: BP 139/65; PULSE 90; RESP 16; TEMP 36.4; O2SAT 96
[2023-04-22 09:06] LABS: Glucose, Whole Blood 121 mg/dL (60-115)
[2023-04-22 09:20] LABS: Creatinine Clr Calc Pharmacy 85.3; Estimated Glomerular Filt Rate > 60
[2023-04-22] MEDS: Insulin Glargine,Hum.rec.anlog 100 UNIT/ML 10 ML VIAL 28 UNIT SUBCUT (09:28)
[2023-04-22] MEDS: Ferrous Sulfate 324 MG TABLET.DR PO (10:57)
[2023-04-22] MEDS: metFORMIN HCl ER 500 MG TAB.ER.24H 1000 MG PO ×2 (10:57→19:55)
[2023-04-22] MEDS: Sodium Chloride Tab 1 GM TABLET PO ×2 (10:57→19:55)
[2023-04-22] MEDS: levoFLOXacin 500 MG TABLET PO (10:57)
[2023-04-22] MEDS: hydrALAZINE HCl 50 MG TABLET PO ×3 (10:58→19:55)
[2023-04-22] MEDS: Urea 15 GM POWDER 30 GM PO ×2 (10:59→19:54)
[2023-04-22] MEDS: levETIRAcetam 500 MG TABLET PO ×2 (10:59→19:54)
[2023-04-22] MEDS: glipiZIDE 5 MG TABLET PO ×2 (10:59→17:57)
--- NOTE | 2023-04-22 11:06 | PM.CNNEP ---
History of Present Illness Reason for Consult Consult date: 04/22/23 Reason for consult: Hyponatremia Chief Complaint Chief complaint: Disorganized and dangerous behavior History of Present Illness Narrative: 57-year-old female with a PMH significant for?HTN, insulin-dependent diabetes type 2, HTN, seizure disorder, and bipolar disorder who is currently an inpatient in [facility] Psych unit. She recently had been started on Trileptal . She does not have any nausea, vomiting or diarrhea. She drinks significant amount of fluid by mouth. She has no edema, orthostatic symptoms, PND, orthopnea or SOB. Her sodium was found to be 118 yesterday. Her mentation is at baseline. Internal Medicine colleagues were consulted yesterday and subsequently nephrology was consulted to assist in her clinical care. Patient was unwilling to talk to me. RN was physically with me during this patient encounter. Details are taken from Caring team as well as EMR. Review of Systems Review of Systems Yes Other (Unwilling to talk to me) PMFSH Past Medical History Medical History (Updated 04/21/23 @ 22:29 by José Miguel Dallas MD) Seizure disorder, complex partial Osteomyelitis Bipolar 1 disorder Seizure disorder Diabetes Occipital cerebral infarction Family History Family History Father Diabetes Mother Stroke Social History Social History Household Members: None Housing: Homeless Do you presently have visiting nurse or other home services: No Patient Tobacco Use Status: Current everyday Tobacco user Tobacco use type: Cigarette Cigarette Packs Per Day: 2 Cigarettes Per Day: 40.0 Smoked in Last 30 Days: Yes Patient Interested in Nicotine Replacement: Yes Patient Given Instructions on How to Stop Smoking: No Second Hand Smoke Exposure: No Use of substances other than those prescribed or required for medical reasons: Yes Substance Use Type: Marijuana Substance Use Frequency: Occasionally Currently Displaying Signs/Symptoms of Drug Intoxication Withdrawal: No Any prior treatment program specific to substance use: No Have you been hit, kicked, punched, or otherwise hurt by someone within the past year? If so, by whom?: No Do you feel safe in your current relationship?: No Is there a partner from a previous relationship who is making you feel unsafe now?: No Are you made to feel afraid or neglected: No Advance Directives: Yes Advance Directives on File: Yes Advance Directives Date on File: 09/12/21 Healthcare Proxy: No Guardian: No Do you have thoughts of harming others: None Do you have a plan to hurt others: No Plan Recently lost weight without trying: No Nutrition Risks: Diabetes new onset/Uncontrolled Patient : No : No Poor oral hygiene: No service: No Sexual orientation: Decline to Answer Meds Allergies Allergy/AdvReac Type Severity Reaction Status Date / Time haloperidol Allergy Severe Nausea and Verified 03/17/23 14:24 Vomiting lithium Allergy Severe Nausea and Verified 03/17/23 14:24 Vomiting latex Allergy Mild Itching Verified 03/17/23 14:24 Active Medications: Current Medications Acetaminophen (Acetaminophen 325 Mg Tablet) 650 mg PO Q6H PRN PRN Reason: Headache/Pain Mild Scale (1-3) Last Admin: 04/21/23 23:45 Dose: 650 mg Al Hydroxide/Mg Hydroxide (Magnesium Hydrox/Alum Hydrox 30 Ml Oral.Susp) 30 ml PO Q6H PRN PRN Reason: Heartburn/Nausea Last Admin: 04/20/23 23:27 Dose: 30 ml Clonazepam (Clonazepam 1 Mg Tablet) 1 mg PO BEDTIME ONEL Last Admin: 04/21/23 20:12 Dose: 1 mg Clonazepam (Clonazepam 1 Mg Tablet) 1 mg PO BEDTIME PRN PRN Reason: Insomnia Last Admin: 04/21/23 20:40 Dose: 1 mg Divalproex Sodium (Divalproex Sodium Er 250 Mg Tab.Er.24h) 250 mg PO BID ONEL Ferrous Sulfate (Ferrous Sulfate 324 Mg Tablet.Dr) 324 mg PO DAILY ONEL Last Admin: 04/22/23 10:57 Dose: 324 mg Glipizide (Glipizide 5 Mg Tablet) 5 mg PO BIDWM ONEL Last Admin: 04/22/23 10:59 Dose: 5 mg Hydralazine HCl (Hydralazine Hcl 50 Mg Tablet) 50 mg PO TID ONEL; Protocol Last Admin: 04/22/23 10:58 Dose: 50 mg Hydroxyzine HCl (Hydroxyzine Hcl 25 Mg Tablet) 25 mg PO Q6H PRN PRN Reason: Anxiety Last Admin: 04/20/23 23:19 Dose: 25 mg Hydroxyzine HCl (Hydroxyzine Hcl 25 Mg Tablet) 25 mg PO BEDTIME ONEL Last Admin: 04/21/23 20:12 Dose: 25 mg Insulin Glargine (Insulin Glargine,Hum.Rec.Anlog 100 Unit/Ml 10 Ml Vial) 28 unit SUBCUT DAILY [facility] Last Admin: 04/22/23 09:28 Dose: 28 unit Insulin Human Lispro (Insulin Lispro 100 Unit/Ml 3 Ml Vial) 0 unit SUBCUT QIDACHS [facility]; Protocol Last Admin: 04/22/23 09:29 Dose: Not Given Levetiracetam (Levetiracetam 500 Mg Tablet) 500 mg PO BID [facility] Last Admin: 04/22/23 10:59 Dose: 500 mg Levofloxacin (Levofloxacin 500 Mg Tablet) 500 mg PO Q24H [facility] Last Admin: 04/22/23 10:57 Dose: 500 mg Losartan Potassium (Losartan Potassium 50 Mg Tablet) 100 mg PO DAILY@1200 ONEL; Protocol Magnesium Hydroxide (Milk Of Magnesia 30 Ml Oral.Susp) 30 ml PO DAILY PRN PRN Reason: Constipation Last Admin: 04/21/23 06:51 Dose: 30 ml Metformin HCl (Metformin Hcl Er 500 Mg Tab.Er.24h) 1,000 mg PO BID [facility] Last Admin: 04/22/23 10:57 Dose: 1,000 mg Metronidazole (Metronidazole 500 Mg Tablet) 500 mg PO Q8H [facility] Last Admin: 04/22/23 10:58 Dose: 500 mg Nicotine Polacrilex (Nicotine Polacrilex 2 Mg Gum) 4 mg BUCCAL Q2H PRN PRN Reason: Nicotine Cravings Nifedipine (Nifedipine Er 30 Mg Tab.Er.24) 60 mg PO BEDTIME [facility]; Protocol Last Admin: 04/21/23 20:13 Dose: 60 mg Olanzapine (Olanzapine 10 Mg Tablet) 20 mg PO BEDTIME [facility] Last Admin: 04/21/23 20:13 Dose: 20 mg Quetiapine Fumarate (Quetiapine Fumarate 25 Mg Tablet) 25 mg PO Q2H PRN PRN Reason: anxiety/restlessness Sodium Chloride (Sodium Chloride Tab 1 Gm Tablet) 1 gm PO BID [facility] Stop: 04/23/23 21:01 Last Admin: 04/22/23 10:57 Dose: 1 gm Urea (Urea 15 Gm Powder) 30 gm PO BID [facility] Stop: 04/23/23 21:01 Last Admin: 04/22/23 10:59 Dose: 30 gm Home Medications Medication Instructions Recorded Confirmed Last Taken Type insulin glargine 100 unit/mL 20 unit subcut DAILY 03/04/23 03/25/23 03/04/23 History subcutaneous solution (Lantus U-100 Insulin) levetiracetam 750 mg tablet 750 mg PO BID 03/04/23 03/24/23 03/04/23 History (Keppra) metformin 750 mg tablet,extended 750 mg PO BEDTIME 03/04/23 03/24/23 03/04/23 History release 24 hr trazodone 50 mg tablet 50 mg PO BEDTIME 03/05/23 03/24/23 Unknown History insulin lispro 100 unit/mL 0 sliding scale dose subcut TID 03/25/23 03/25/23 Unknown History subcutaneous solution Physical Exam Vital Signs: Last Vital Signs Temp 97.5 F 04/22/23 09:00 Pulse 90 04/22/23 09:00 Resp 16 04/22/23 09:00 BP 139/65 04/22/23 09:00 Pulse Ox 96 04/22/23 09:00 O2 Del Method Room Air 04/22/23 09:00 BMI result Body Mass Index 24.0 Const General: no acute distress Neck Neck: Yes supple and Yes no JVD Resp Auscultation: diminished lung sounds Cardio Jugular venous distension: no JVD Rate: regular rate GI Palpation (GI): Soft to palpation Neuro General: moves all extremities Extrem General: Yes no clubbing, cyanosis or edema Results Lab Results 04/21/23 12:09 04/22/23 08:40 Lab results: Chemistry 04/21/23 04/21/23 04/21/23 12:09 13:28 18:50 Sodium 118 L* 120 L* 119 L* Potassium 4.9 Carbon Dioxide 20 L BUN 15 Creatinine 0.54 Calcium 9.1 04/21/23 04/22/23 04/22/23 21:27 01:12 08:40 Sodium 118 L* 121 L Potassium Carbon Dioxide BUN Creatinine 0.62 Calcium Hematology 04/21/23 12:09 WBC 8.6 Hgb 9.7 L Plt Count 372 Urine Studies 04/21/23 14:00 Urine Osmolality 294 L Urine Creatinine 16.68 Assessment and Plan (1) Hyponatremia: Status: Acute Plan Has predilection for excess ADH Hyponatremia due to excess ADH Euvolemic; Urine studies reviewed Had been on Trilpetal- discontinued Mentation at baseline Started on NaCl tablets & PO Urea Serum sodium better No indication for hypertonic saline/ tolvaptan now C/W current supportive care for now Procedures Date of Service Date of Service: 04/22/23
[2023-04-22] MEDS: QUEtiapine Fumarate 25 MG TABLET PO (11:34)
[2023-04-22] MEDS: Losartan Potassium 50 MG TABLET 100 MG PO (11:34)
[2023-04-22 12:37] LABS: Glucose, Whole Blood 123 mg/dL (60-115)
[2023-04-22] MEDS: LORazepam 1 MG TABLET PO (13:15)
[2023-04-22] MEDS: Divalproex Sodium ER 250 MG TAB.ER.24H PO ×2 (13:23→19:54)
[2023-04-22] MEDS: Clotrimazole 1 % Cream 15 GM TUBE 1 APPL TOPICAL ×2 (13:23→22:00)
[2023-04-22 14:54] VITALS: BP 141/96; PULSE 111
[2023-04-22] MEDS: Acetaminophen 325 MG TABLET 650 MG PO ×2 (14:56→23:24)
--- NOTE | 2023-04-22 16:30 | P.PNPSI_ITS ---
Subjective Subjective Date of Service: 04/22/23 Reason For Visit: Disorganized and dangerous behavior Subjective Notes: Conditional Voluntary and 3 Day Healthcare Proxy: Yes (not invoked ) Medication Compliance: Yes Side effects from medications: Yes Attending Groups: Intermittent Review of Systems Acute medical concerns: Yes hyponatremia Mental Status Exam Mental Status Exam Narrative: irritable labile throwing herself back in the chair Patient Appearance: Disheveled Patient Orientation: Person, Place and Time Level of Consciousness: Awake Patient Behavior: Restless, Belligerent, Anxious and Distractible Mood Description: Depressed, Anxious and Apprehensive Affect Description: Anxious, Labile, Angry and Apprehensive Speech Pattern: Perseverating and Pressured Delusions: Not Present Thought Content: positive for [place], positive for Obsessional Thoughts, negative for Suicidal Ideation or negative for Homicidal Ideation Depressive Symptoms: Increased Anxiety, Insomnia, Increased Irritability and Difficulty Concentrating Diagnostics Vital Signs (24Hr): Vital Signs - 24 hr 04/21/23 20:37 04/21/23 22:20 04/22/23 09:00 Temperature 97.4 F 97.4 F 97.5 F Pulse Rate 99 94 90 Respiratory Rate 20 18 16 Blood Pressure 177/73 H 121/66 139/65 Pulse Oximetry 100 100 96 Oxygen Delivery Method Room Air Room Air Room Air 04/22/23 14:54 Temperature Pulse Rate 111 H Respiratory Rate Blood Pressure 141/96 H Pulse Oximetry Oxygen Delivery Method BMI result Body Mass Index 24.0 Labs 04/21/23 12:09 04/22/23 21:16 Labs: Laboratory Results - last 48 hr 04/15/23 04/20/23 04/20/23 08:39 17:22 20:27 WBC RBC Hgb Hct MCV MCH MCHC RDW Plt Count MPV Immature Gran % (Auto) Neut % (Auto) Lymph % (Auto) [place] % (Auto) Eos % (Auto) Baso % (Auto) Lymph # (Auto) [place] # (Auto) Eos # (Auto) Baso # (Auto) Abs Immat Gran (auto) Absolute Neuts (auto) Absolute Nucleated RBC Nucleated RBC % (auto) Sodium Potassium Chloride Carbon Dioxide Anion Gap BUN Creatinine Estim Creat Clear Calc Estimated GFR POC Glucose 299 H 196 H Random Glucose Osmolality Calcium Total Bilirubin AST ALT Alkaline Phosphatase Total Protein Albumin Plasma Free Metaneph 55 Plasma Free [place] 133 Plas Total Metaneph 188 Urine Osmolality Ur Random Sodium Urine Creatinine 04/21/23 04/21/23 04/21/23 08:48 12:09 12:30 WBC 8.6 RBC 3.41 L Hgb 9.7 L Hct 28.3 L MCV 83.0 MCH 28.4 MCHC 34.3 RDW 14.5 Plt Count 372 MPV 8.8 L Immature Gran % (Auto) 0.6 H Neut % (Auto) 72.7 Lymph % (Auto) 15.0 L [place] % (Auto) 10.8 Eos % (Auto) 0.7 Baso % (Auto) 0.2 Lymph # (Auto) 1.3 [place] # (Auto) 0.9 Eos # (Auto) 0.1 Baso # (Auto) 0.0 Abs Immat Gran (auto) 0.05 H Absolute Neuts (auto) 6.3 Absolute Nucleated RBC 0.000 Nucleated RBC % (auto) 0.0 Sodium 118 L* Potassium 4.9 Chloride 90 L Carbon Dioxide 20 L Anion Gap 13 BUN 15 Creatinine 0.54 Estim Creat Clear Calc 98.0 Estimated GFR > 60 POC Glucose 213 H 107 Random Glucose 92 Osmolality Calcium 9.1 Total Bilirubin 0.2 AST 41 H ALT 41 H Alkaline Phosphatase 141 H Total Protein 6.6 Albumin 3.9 Plasma Free Metaneph Plasma Free Norm[place] Plas Total Metaneph Urine Osmolality Ur Random Sodium Urine Creatinine 04/21/23 04/21/23 04/21/23 13:28 14:00 17:23 WBC RBC Hgb Hct MCV MCH MCHC RDW Plt Count MPV Immature Gran % (Auto) Neut % (Auto) Lymph % (Auto) [place] % (Auto) Eos % (Auto) Baso % (Auto) Lymph # (Auto) [place] # (Auto) Eos # (Auto) Baso # (Auto) Abs Immat Gran (auto) Absolute Neuts (auto) Absolute Nucleated RBC Nucleated RBC % (auto) Sodium 120 L* Potassium Chloride Carbon Dioxide Anion Gap BUN Creatinine Estim Creat Clear Calc Estimated GFR POC Glucose 195 H Random Glucose Osmolality 259 L Calcium Total Bilirubin AST ALT Alkaline Phosphatase Total Protein Albumin Plasma Free Metaneph Plasma Free [place] Plas Total Metaneph Urine Osmolality 294 L Ur Random Sodium 35.0 Urine Creatinine 16.68 04/21/23 04/21/23 04/21/23 18:50 20:08 21:27 WBC RBC Hgb Hct MCV MCH MCHC RDW Plt Count MPV Immature Gran % (Auto) Neut % (Auto) Lymph % (Auto) [place] % (Auto) Eos % (Auto) Baso % (Auto) Lymph # (Auto) [place] # (Auto) Eos # (Auto) Baso # (Auto) Abs Immat Gran (auto) Absolute Neuts (auto) Absolute Nucleated RBC Nucleated RBC % (auto) Sodium 119 L* 118 L* Potassium Chloride Carbon Dioxide Anion Gap BUN Creatinine Estim Creat Clear Calc Estimated GFR POC Glucose 191 H Random Glucose Osmolality Calcium Total Bilirubin AST ALT Alkaline Phosphatase Total Protein Albumin Plasma Free Metaneph Plasma Free [place] Plas Total Metaneph Urine Osmolality Ur Random Sodium Urine Creatinine 04/22/23 04/22/23 04/22/23 01:12 08:40 09:01 WBC RBC Hgb Hct MCV MCH MCHC RDW Plt Count MPV Immature Gran % (Auto) Neut % (Auto) Lymph % (Auto) [place] % (Auto) Eos % (Auto) Baso % (Auto) Lymph # (Auto) [place] # (Auto) Eos # (Auto) Baso # (Auto) Abs Immat Gran (auto) Absolute Neuts (auto) Absolute Nucleated RBC Nucleated RBC % (auto) Sodium 121 L Potassium Chloride Carbon Dioxide Anion Gap BUN Creatinine 0.62 Estim Creat Clear Calc 85.3 Estimated GFR > 60 POC Glucose 121 H Random Glucose Osmolality Calcium Total Bilirubin AST ALT Alkaline Phosphatase Total Protein Albumin Plasma Free Metaneph Plasma Free [place] Plas Total Metaneph Urine Osmolality Ur Random Sodium Urine Creatinine 04/22/23 12:31 WBC RBC Hgb Hct MCV MCH MCHC RDW Plt Count MPV Immature Gran % (Auto) Neut % (Auto) Lymph % (Auto) [place] % (Auto) Eos % (Auto) Baso % (Auto) Lymph # (Auto) [place] # (Auto) Eos # (Auto) Baso # (Auto) Abs Immat Gran (auto) Absolute Neuts (auto) Absolute Nucleated RBC Nucleated RBC % (auto) Sodium Potassium Chloride Carbon Dioxide Anion Gap BUN Creatinine Estim Creat Clear Calc Estimated GFR POC Glucose 123 H Random Glucose Osmolality Calcium Total Bilirubin AST ALT Alkaline Phosphatase Total Protein Albumin Plasma Free Metaneph Plasma Free [place] Plas Total Metaneph Urine Osmolality Ur Random Sodium Urine Creatinine Imaging Radiology Impressions: ITS Impressions Renal Ultrasound 04/07/23 07:47 IMPRESSION: Increased peak systolic velocity in the mid left renal artery suggestive renal artery stenosis. Follow-up imaging recommended, preferably CTA if normal renal function. Renal Ultrasound 04/07/23 07:47 IMPRESSION: Increased peak systolic velocity in the mid left renal artery suggestive renal artery stenosis. Follow-up imaging recommended, preferably CTA if normal renal function. Abdomen CTA 04/08/23 16:05 IMPRESSION: Atherosclerotic disease. No significant renal artery stenosis. Calcified plaque at both renal artery origins. Tortuous left renal artery and question mild left mid renal artery stenosis. Several indeterminate left renal lesions as described above. Follow-up dedicated renal imaging with either CT or MRI with and without contrast recommended. 1.5 x 2 cm right adrenal lesion. Given hypertension, endocrinology follow-up and additional imaging may be helpful. This could be done at the same time as renal imaging if clinically indicated. Fleischner guidelines were followed. Orbit X-Ray 04/09/23 15:37 IMPRESSION: No radiopaque foreign body seen in the skull. No radiopaque foreign body seen in the chest. The lungs are clear. Brain MRI 04/10/23 13:15 IMPRESSION: No acute intracranial abnormality. 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 Background changes of mild chronic microangiopathy. Abdomen/Pelvis CT 04/14/23 18:31 IMPRESSION: 1. Benign right adrenal adenoma. 2. Benign Bosniak class I and class II left renal cysts which need no further follow-up. 3. Other incidental findings as described above including grade 1 anterolisthesis of L4 upon L5 and marked calcific and noncalcific atherosclerotic changes in the aorta and iliofemoral vessels with possible left common iliac stenosis. Fleischner guidelines were followed. Foot X-Ray 04/18/23 16:28 IMPRESSION: No acute fracture or dislocation. Interval amputation of the fourth toe. Erosive destructive changes of the fourth metatarsal head and periosteal reaction suggestive of osteomyelitis. Periosteal reaction of the shaft of the third metatarsal bone also questionable for osteomyelitis. Question osteomyelitis and pathologic fracture of the base of the proximal phalanx of the third toe. Erosive changes of the distal tuft of the great toe questionable for osteomyelitis as well. Medications Medications Current Medications Acetaminophen (Acetaminophen 325 Mg Tablet) 650 mg PO Q6H PRN PRN Reason: Headache/Pain Mild Scale (1-3) Last Admin: 04/22/23 14:56 Dose: 650 mg Al Hydroxide/Mg Hydroxide (Magnesium Hydrox/Alum Hydrox 30 Ml Oral.Susp) 30 ml PO Q6H PRN PRN Reason: Heartburn/Nausea Last Admin: 04/20/23 23:27 Dose: 30 ml Clonazepam (Clonazepam 1 Mg Tablet) 1 mg PO BEDTIME ONEL Last Admin: 04/21/23 20:12 Dose: 1 mg Clonazepam (Clonazepam 1 Mg Tablet) 1 mg PO BEDTIME PRN PRN Reason: Insomnia Last Admin: 04/21/23 20:40 Dose: 1 mg Clotrimazole (Clotrimazole 1 % Cream 15 Gm Tube) 1 appl TOPICAL BID ONEL; Protocol Last Admin: 04/22/23 13:23 Dose: 1 appl Divalproex Sodium (Divalproex Sodium Er 250 Mg Tab.Er.24h) 250 mg PO BID ONEL Last Admin: 04/22/23 13:23 Dose: 250 mg Ferrous Sulfate (Ferrous Sulfate 324 Mg Tablet.Dr) 324 mg PO DAILY ONEL Last Admin: 04/22/23 10:57 Dose: 324 mg Glipizide (Glipizide 5 Mg Tablet) 5 mg PO BIDWM ONEL Last Admin: 04/22/23 10:59 Dose: 5 mg Hydralazine HCl (Hydralazine Hcl 50 Mg Tablet) 50 mg PO TID ONEL; Protocol Last Admin: 04/22/23 14:56 Dose: 50 mg Hydroxyzine HCl (Hydroxyzine Hcl 25 Mg Tablet) 25 mg PO Q6H PRN PRN Reason: Anxiety Last Admin: 04/20/23 23:19 Dose: 25 mg Hydroxyzine HCl (Hydroxyzine Hcl 25 Mg Tablet) 25 mg PO BEDTIME ONEL Last Admin: 04/21/23 20:12 Dose: 25 mg Insulin Glargine (Insulin Glargine,Hum.Rec.Anlog 100 Unit/Ml 10 Ml Vial) 28 unit SUBCUT DAILY ONEL Last Admin: 04/22/23 09:28 Dose: 28 unit Insulin Human Lispro (Insulin Lispro 100 Unit/Ml 3 Ml Vial) 0 unit SUBCUT QIDACHS [facility]; Protocol Last Admin: 04/22/23 12:41 Dose: Not Given Levetiracetam (Levetiracetam 500 Mg Tablet) 500 mg PO BID [facility] Last Admin: 04/22/23 10:59 Dose: 500 mg Losartan Potassium (Losartan Potassium 50 Mg Tablet) 100 mg PO DAILY@1200 ONEL; Protocol Last Admin: 04/22/23 11:34 Dose: 100 mg Magnesium Hydroxide (Milk Of Magnesia 30 Ml Oral.Susp) 30 ml PO DAILY PRN PRN Reason: Constipation Last Admin: 04/21/23 06:51 Dose: 30 ml Metformin HCl (Metformin Hcl Er 500 Mg Tab.Er.24h) 1,000 mg PO BID ONEL Last Admin: 04/22/23 10:57 Dose: 1,000 mg Nicotine Polacrilex (Nicotine Polacrilex 2 Mg Gum) 4 mg BUCCAL Q2H PRN PRN Reason: Nicotine Cravings Nifedipine (Nifedipine Er 30 Mg Tab.Er.24) 60 mg PO BEDTIME ONEL; Protocol Last Admin: 04/21/23 20:13 Dose: 60 mg Olanzapine (Olanzapine 10 Mg Tablet) 20 mg PO BEDTIME ONEL Last Admin: 04/21/23 20:13 Dose: 20 mg Quetiapine Fumarate (Quetiapine Fumarate 25 Mg Tablet) 25 mg PO Q2H PRN PRN Reason: anxiety/restlessness Last Admin: 04/22/23 11:34 Dose: 25 mg Sodium Chloride (Sodium Chloride Tab 1 Gm Tablet) 1 gm PO BID ONEL Stop: 04/23/23 21:01 Last Admin: 04/22/23 10:57 Dose: 1 gm Urea (Urea 15 Gm Powder) 30 gm PO BID [facility] Stop: 04/23/23 21:01 Last Admin: 04/22/23 10:59 Dose: 30 gm Allergies Allergies Allergy/AdvReac Type Severity Reaction Status Date / Time haloperidol Allergy Severe Nausea and Verified 03/17/23 14:24 Vomiting lithium Allergy Severe Nausea and Verified 03/17/23 14:24 Vomiting latex Allergy Mild Itching Verified 03/17/23 14:24 Assessment & Plan Assessment & Plan (1) Hyponatremia: Status: Acute Code(s): E87.1 - Hypo-osmolality and hyponatremia (2) Bipolar 1 disorder, depressed, severe: Status: Acute Code(s): F31.4 - Bipolar disorder, current episode depressed, severe, without psychotic features (3) Hypertension: Status: Acute Code(s): I10 - Essential (primary) hypertension (4) Insulin dependent type 2 diabetes mellitus: Status: Acute Code(s): E11.9 - Type 2 diabetes mellitus without complications; Z79.4 - senior care (current) use of insulin (5) Seizure disorder, complex partial: Status: Acute Code(s): G40.209 - Localization-related (focal) (partial) symptomatic epilepsy and epileptic syndromes with complex partial seizures, not intractable, without status epilepticus Plan Has predilection for excess ADH Hyponatremia due to excess ADH Euvolemic; Urine studies reviewed Had been on Trilpetal- discontinued Mentation at baseline Started on NaCl tablets & PO Urea Serum sodium better No indication for hypertonic saline/ tolvaptan now C/W current supportive care for now 04/22/23 Pt on 3 day lablle depressed difficulty at this time for self care impaired judgement yelling I want to go but not processing multiple issues presently going on hyponatremia depression mood instability started on depakote seroquel for mood stability depression urea sodium tabs for hyponatremia trileptal d/c nephrology consult reviewed on tx for ? nathan second opinion ordered dr thomas follow sodium file for sec 7 Reason for continued inpatient stay Substantial Risk for: rapid decompensation and med/psych decompensation Time Spent With Patient Time: Total time managing care of this patient today ____ minutes.
[2023-04-22 17:12] LABS: Anion Gap 13 (12-20); Blood Urea Nitrogen 52 mg/dL (9-16); Calcium 10.2 mg/dL (8.4-10.2); Carbon Dioxide 25 mmol/L (22-29); Chloride 92 mmol/L (96-108); Creatinine Clr Calc Pharmacy 73.5; Estimated Glomerular Filt Rate > 60; Glucose Random 185 mg/dL (60-115); Potassium 4.8 mmol/L (3.3-5.1); Sodium 125 mmol/L (135-145)
--- NOTE | 2023-04-22 17:28 | PC.NURSE ---
Raiza Alejandre 308 - Sodium improved to 125 today but BUN jumped from 15 to [address] King and Dr Dallas were both informed.
[2023-04-22] MEDS: Insulin Lispro 100 UNIT/ML 3 ML VIAL SUBCUT (17:56)
--- NOTE | 2023-04-22 18:46 | PC.NURSE ---
Pt to be placed on Infectious disease protocol, 1:1 for bathroom,clean toilet seat after each use, no sharing towels for suspected ringworm. Communication with Dr Dallas to start protocol once roommate is admitted.
[2023-04-22] MEDS: Magnesium Hydrox/Alum Hydrox 30 ML ORAL.SUSP PO (19:02)
[2023-04-22] MEDS: hydrOXYzine HCL 25 MG TABLET PO ×2 (19:55→23:24)
[2023-04-22] MEDS: NIFEdipine ER 30 MG TAB.ER.24 60 MG PO (19:55)
[2023-04-22] MEDS: QUEtiapine Fumarate 50 MG TABLET PO ×2 (19:55→23:26)
[2023-04-22] MEDS: clonazePAM 1 MG TABLET PO (19:55)
[2023-04-22] MEDS: OLANZapine 10 MG TABLET 20 MG PO (19:56)
[2023-04-22 20:38] VITALS: BP 130/63; PULSE 100; TEMP 36.6; O2SAT 95
[2023-04-22 20:42] LABS: Glucose, Whole Blood 128 mg/dL (60-115)
[2023-04-22 21:41] LABS: Sodium 125 mmol/L (135-145)
[2023-04-23] MEDS: QUEtiapine Fumarate 50 MG TABLET PO (04:05)
[2023-04-23] MEDS: hydrOXYzine HCL 25 MG TABLET PO (04:05)
[2023-04-23 07:00] VITALS: BMI 24.1
[2023-04-23] MEDS: Magnesium Hydrox/Alum Hydrox 30 ML ORAL.SUSP PO (07:17)
[2023-04-23 08:43] LABS: Anion Gap 11 (12-20); Blood Urea Nitrogen 47 mg/dL (9-16); Calcium 10.7 mg/dL (8.4-10.2); Carbon Dioxide 28 mmol/L (22-29); Chloride 94 mmol/L (96-108); Estimated Glomerular Filt Rate > 60; Glucose Random 193 mg/dL (60-115); Potassium 5.1 mmol/L (3.3-5.1); Sodium 128 mmol/L (135-145)
[2023-04-23 08:45] VITALS: BP 126/60; PULSE 111; RESP 18; TEMP 36.4; O2SAT 92
[2023-04-23] MEDS: Divalproex Sodium ER 250 MG TAB.ER.24H PO ×3 (08:55→20:39)
[2023-04-23] MEDS: metFORMIN HCl ER 500 MG TAB.ER.24H 1000 MG PO ×2 (08:55→20:37)
[2023-04-23] MEDS: Sodium Chloride Tab 1 GM TABLET PO (08:56)
[2023-04-23] MEDS: Urea 15 GM POWDER 30 GM PO (08:56)
[2023-04-23] MEDS: levETIRAcetam 500 MG TABLET PO ×2 (08:56→20:39)
[2023-04-23] MEDS: glipiZIDE 5 MG TABLET PO ×2 (08:56→17:53)
[2023-04-23] MEDS: hydrALAZINE HCl 50 MG TABLET PO ×3 (08:56→20:39)
[2023-04-23] MEDS: Ferrous Sulfate 324 MG TABLET.DR PO (08:56)
[2023-04-23] MEDS: Insulin Glargine,Hum.rec.anlog 100 UNIT/ML 10 ML VIAL 28 UNIT SUBCUT (08:59)
[2023-04-23 09:08] LABS: Glucose, Whole Blood 198 mg/dL (60-115)
[2023-04-23 12:41] LABS: Glucose, Whole Blood 179 mg/dL (60-115)
[2023-04-23] MEDS: Insulin Lispro 100 UNIT/ML 3 ML VIAL SUBCUT ×2 (12:59→18:11)
[2023-04-23 13:00] VITALS: BP 154/72; PULSE 104; RESP 18; TEMP 36.4; O2SAT 94
[2023-04-23] MEDS: Losartan Potassium 50 MG TABLET 100 MG PO (13:00)
[2023-04-23] MEDS: Acetaminophen 325 MG TABLET 650 MG PO ×2 (13:03→21:28)
[2023-04-23] MEDS: Clotrimazole 1 % Cream 15 GM TUBE 1 APPL TOPICAL (13:05)
--- NOTE | 2023-04-23 14:04 | PM.EVENT ---
Event Note Date of Service: 04/24/23 Event Note: Addendum: Pt's sodium improved to 132 today, essentially at her baseline since 10/2021. Will sign off now. Please re-consult should any acute concerns or questions arise. Follow-up for patient with hyponatremia. Patient's sodium improved to 128 this morning on 04/23/2023. Will discontinue last dose of urea and sodium chloride, and will check labs again tomorrow morning. Pt also being treated for tinea corporis on right hip/upper thigh. Continue clotimazole 1% cream bid for a total of 1-3 weeks until resolution of the rash. See picture below. Time Spent With Patient Time: Total time managing care of this patient today ____ minutes.
--- NOTE | 2023-04-23 16:20 | HO.PSYCHPN ---
Subjective Subjective Date of Service: 04/23/23 Reason For Visit: Disorganized and dangerous behavior Subjective Notes: Section 7 Interim History: Pt seen in psychiatric f/u continues agitated depressed sodium improved was on 1.1 secondary to ringworm still has difficulty sleeping takes catnaps labile screaming agitated Medication Compliance: Yes Side effects from medications: Yes Attending Groups: Intermittent Review of Systems hyponatremia improving Mental Status Exam Mental Status Exam Patient Appearance: Disheveled Patient Orientation: Person, Place and Time Level of Consciousness: Awake Patient Behavior: Restless, Belligerent, Anxious and Distractible Mood Description: Depressed, Anxious and Apprehensive Affect Description: Anxious, Labile, Angry and Apprehensive Speech Pattern: Perseverating, Pressured, Includes Profanity and Excited Memory Description: Working Impaired Delusions: Not Present Thought Content: positive for [place], positive for Obsessional Thoughts, negative for Suicidal Ideation or negative for Homicidal Ideation Depressive Symptoms: Increased Anxiety, Insomnia, Increased Irritability and Difficulty Concentrating Abnormal Motor Activity Signs and Symptoms: Agitation Judgement: Poor Diagnostics Vital Signs (24Hr): Vital Signs - 24 hr 04/22/23 20:38 04/23/23 08:45 04/23/23 13:00 Temperature 97.8 F 97.6 F 97.6 F Pulse Rate 100 111 H 104 H Respiratory Rate 18 18 Blood Pressure 130/63 126/60 154/72 H Pulse Oximetry 95 92 94 Oxygen Delivery Method Room Air Room Air Room Air BMI result Body Mass Index 24.1 Labs 04/21/23 12:09 04/23/23 08:13 Labs: Laboratory Results - last 48 hr 04/15/23 04/21/23 04/21/23 08:39 17:23 18:50 Sodium 119 L* Potassium Chloride Carbon Dioxide Anion Gap BUN Creatinine Estim Creat Clear Calc Estimated GFR POC Glucose 195 H Random Glucose Calcium Plasma Free Metaneph 55 Plasma Free Normeta 133 Plas Total Metaneph 188 04/21/23 04/21/23 04/22/23 20:08 21:27 01:12 Sodium 118 L* 121 L Potassium Chloride Carbon Dioxide Anion Gap BUN Creatinine Estim Creat Clear Calc Estimated GFR POC Glucose 191 H Random Glucose Calcium Plasma Free Metaneph Plasma Free Normeta Plas Total Metaneph 04/22/23 04/22/23 04/22/23 08:40 09:01 12:31 Sodium Potassium Chloride Carbon Dioxide Anion Gap BUN Creatinine 0.62 Estim Creat Clear Calc 85.3 Estimated GFR > 60 POC Glucose 121 H 123 H Random Glucose Calcium Plasma Free Metaneph Plasma Free Normeta Plas Total Metaneph 04/22/23 04/22/23 04/22/23 16:53 20:31 21:16 Sodium 125 L 125 L Potassium 4.8 Chloride 92 L Carbon Dioxide 25 Anion Gap 13 BUN 52 H Creatinine 0.72 Estim Creat Clear Calc 73.5 Estimated GFR > 60 POC Glucose 128 H Random Glucose 185 H Calcium 10.2 D Plasma Free Metaneph Plasma Free Normeta Plas Total Metaneph 04/23/23 04/23/23 04/23/23 08:13 08:56 12:33 Sodium 128 L Potassium 5.1 Chloride 94 L Carbon Dioxide 28 Anion Gap 11 L BUN 47 H Creatinine 0.67 Estim Creat Clear Calc 79.0 Estimated GFR > 60 POC Glucose 198 H 179 H Random Glucose 193 H Calcium 10.7 H Plasma Free Metaneph Plasma Free Normeta Plas Total Metaneph Imaging Radiology Impressions: ITS Impressions Renal Ultrasound 04/07/23 07:47 IMPRESSION: Increased peak systolic velocity in the mid left renal artery suggestive renal artery stenosis. Follow-up imaging recommended, preferably CTA if normal renal function. Renal Ultrasound 04/07/23 07:47 IMPRESSION: Increased peak systolic velocity in the mid left renal artery suggestive renal artery stenosis. Follow-up imaging recommended, preferably CTA if normal renal function. Abdomen CTA 04/08/23 16:05 IMPRESSION: Atherosclerotic disease. No significant renal artery stenosis. Calcified plaque at both renal artery origins. Tortuous left renal artery and question mild left mid renal artery stenosis. Several indeterminate left renal lesions as described above. Follow-up dedicated renal imaging with either CT or MRI with and without contrast recommended. 1.5 x 2 cm right adrenal lesion. Given hypertension, endocrinology follow-up and additional imaging may be helpful. This could be done at the same time as renal imaging if clinically indicated. Fleischner guidelines were followed. Orbit X-Ray 04/09/23 15:37 IMPRESSION: No radiopaque foreign body seen in the skull. No radiopaque foreign body seen in the chest. The lungs are clear. Brain MRI 04/10/23 13:15 IMPRESSION: No acute intracranial abnormality. 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 Background changes of mild chronic microangiopathy. Abdomen/Pelvis CT 04/14/23 18:31 IMPRESSION: 1. Benign right adrenal adenoma. 2. Benign Bosniak class I and class II left renal cysts which need no further follow-up. 3. Other incidental findings as described above including grade 1 anterolisthesis of L4 upon L5 and marked calcific and noncalcific atherosclerotic changes in the aorta and iliofemoral vessels with possible left common iliac stenosis. Fleischner guidelines were followed. Foot X-Ray 04/18/23 16:28 IMPRESSION: No acute fracture or dislocation. Interval amputation of the fourth toe. Erosive destructive changes of the fourth metatarsal head and periosteal reaction suggestive of osteomyelitis. Periosteal reaction of the shaft of the third metatarsal bone also questionable for osteomyelitis. Question osteomyelitis and pathologic fracture of the base of the proximal phalanx of the third toe. Erosive changes of the distal tuft of the great toe questionable for osteomyelitis as well. Medications Medications Current Medications Acetaminophen (Acetaminophen 325 Mg Tablet) 650 mg PO Q6H PRN PRN Reason: Headache/Pain Mild Scale (1-3) Last Admin: 04/23/23 13:03 Dose: 650 mg Al Hydroxide/Mg Hydroxide (Magnesium Hydrox/Alum Hydrox 30 Ml Oral.Susp) 30 ml PO Q6H PRN PRN Reason: Heartburn/Nausea Last Admin: 04/23/23 07:17 Dose: 30 ml Chlorpromazine HCl (Chlorpromazine Hcl 25 Mg Tablet) 25 mg PO BEDTIME ONEL Clonazepam (Clonazepam 1 Mg Tablet) 1 mg PO BEDTIME ONEL Last Admin: 04/22/23 19:55 Dose: 1 mg Clonazepam (Clonazepam 1 Mg Tablet) 1 mg PO BEDTIME PRN PRN Reason: Insomnia Last Admin: 04/21/23 20:40 Dose: 1 mg Clotrimazole (Clotrimazole 1 % Cream 15 Gm Tube) 1 appl TOPICAL BID [facility]; Protocol Last Admin: 04/23/23 13:05 Dose: 1 appl Divalproex Sodium (Divalproex Sodium Er 250 Mg Tab.Er.24h) 250 mg PO TID ONEL Last Admin: 04/23/23 15:33 Dose: 250 mg Ferrous Sulfate (Ferrous Sulfate 324 Mg Tablet.) 324 mg PO DAILY [facility] Last Admin: 04/23/23 08:56 Dose: 324 mg Glipizide (Glipizide 5 Mg Tablet) 5 mg PO BIDWM [facility] Last Admin: 04/23/23 08:56 Dose: 5 mg Hydralazine HCl (Hydralazine Hcl 50 Mg Tablet) 50 mg PO TID [facility]; Protocol Last Admin: 04/23/23 15:33 Dose: 50 mg Hydroxyzine HCl (Hydroxyzine Hcl 25 Mg Tablet) 25 mg PO Q6H PRN PRN Reason: Anxiety Last Admin: 04/23/23 04:05 Dose: 25 mg Insulin Glargine (Insulin Glargine,Hum.Rec.Anlog 100 Unit/Ml 10 Ml Vial) 28 unit SUBCUT DAILY [facility] Last Admin: 04/23/23 08:59 Dose: 28 unit Insulin Human Lispro (Insulin Lispro 100 Unit/Ml 3 Ml Vial) 0 unit SUBCUT QIDACHS [facility]; Protocol Last Admin: 04/23/23 12:59 Dose: 4 unit Levetiracetam (Levetiracetam 500 Mg Tablet) 500 mg PO BID [facility] Last Admin: 04/23/23 08:56 Dose: 500 mg Losartan Potassium (Losartan Potassium 50 Mg Tablet) 100 mg PO DAILY@1200 [facility]; Protocol Last Admin: 04/23/23 13:00 Dose: 100 mg Magnesium Hydroxide (Milk Of Magnesia 30 Ml Oral.Susp) 30 ml PO DAILY PRN PRN Reason: Constipation Last Admin: 04/21/23 06:51 Dose: 30 ml Metformin HCl (Metformin Hcl Er 500 Mg Tab.Er.24h) 1,000 mg PO BID [facility] Last Admin: 04/23/23 08:55 Dose: 1,000 mg Nicotine Polacrilex (Nicotine Polacrilex 2 Mg Gum) 4 mg BUCCAL Q2H PRN PRN Reason: Nicotine Cravings Nifedipine (Nifedipine Er 30 Mg Tab.Er.24) 60 mg PO BEDTIME [facility]; Protocol Last Admin: 04/22/23 19:55 Dose: 60 mg Olanzapine (Olanzapine 10 Mg Tablet) 20 mg PO BEDTIME [facility] Last Admin: 04/22/23 19:56 Dose: 20 mg Quetiapine Fumarate (Quetiapine Fumarate 50 Mg Tablet) 50 mg PO Q2H PRN PRN Reason: anxiety/restlessness Last Admin: 04/23/23 04:05 Dose: 50 mg Allergies Allergies Allergy/AdvReac Type Severity Reaction Status Date / Time haloperidol Allergy Severe Nausea and Verified 03/17/23 14:24 Vomiting lithium Allergy Severe Nausea and Verified 03/17/23 14:24 Vomiting latex Allergy Mild Itching Verified 03/17/23 14:24 Assessment & Plan Assessment & Plan (1) Hyponatremia: Status: Acute Code(s): E87.1 - Hypo-osmolality and hyponatremia (2) Bipolar 1 disorder, depressed, severe: Status: Acute Code(s): F31.4 - Bipolar disorder, current episode depressed, severe, without psychotic features (3) Hypertension: Status: Acute Code(s): I10 - Essential (primary) hypertension (4) Insulin dependent type 2 diabetes mellitus: Status: Acute Code(s): E11.9 - Type 2 diabetes mellitus without complications; Z79.4 - oil heaterman (current) use of insulin (5) Seizure disorder, complex partial: Status: Acute Code(s): G40.209 - Localization-related (focal) (partial) symptomatic epilepsy and epileptic syndromes with complex partial seizures, not intractable, without status epilepticus Plan Has predilection for excess ADH Hyponatremia due to excess ADH Euvolemic; Urine studies reviewed Had been on Trilpetal- discontinued Mentation at baseline Started on NaCl tablets & PO Urea Serum sodium better No indication for hypertonic saline/ tolvaptan now C/W current supportive care for now 04/22/23 Pt on 3 day lablle depressed difficulty at this time for self care impaired judgement yelling I want to go but not processing multiple issues presently going on hyponatremia depression mood instability started on depakote seroquel for mood stability depression urea sodium tabs for hyponatremia trileptal d/c nephrology consult reviewed on tx for ? ringworm second opinion ordered dr thomas follow sodium file for sec 7 04/23 Pt started thorazine 25 hs dep 250 tid file sec 7 tx plan Reason for continued inpatient stay Substantial Risk for: inability to function, rapid decompensation and med/psych decompensation Time Spent With Patient Time: Total time managing care of this patient today ____ minutes.
[2023-04-23 17:58] LABS: Glucose, Whole Blood 169 mg/dL (60-115)
[2023-04-23 20:00] VITALS: BP 139/90; PULSE 114; RESP 18; TEMP 36.4; O2SAT 98
[2023-04-23] MEDS: NIFEdipine ER 30 MG TAB.ER.24 60 MG PO (20:36)
[2023-04-23] MEDS: OLANZapine 10 MG TABLET 20 MG PO (20:38)
[2023-04-23] MEDS: clonazePAM 1 MG TABLET PO (20:39)
[2023-04-23] MEDS: chlorproMAZINE HCl 25 MG TABLET PO (20:40)
[2023-04-23 20:44] LABS: Glucose, Whole Blood 130 mg/dL (60-115)
[2023-04-24] MEDS: clonazePAM 1 MG TABLET PO ×2 (00:46→20:24)
[2023-04-24] MEDS: QUEtiapine Fumarate 50 MG TABLET PO ×4 (00:46→15:48)
[2023-04-24] MEDS: hydrOXYzine HCL 25 MG TABLET PO (04:31)
[2023-04-24 09:08] LABS: MANUAL DIFF FLAG NO
[2023-04-24 09:12] LABS: Basophils Percent Auto 0.4 % (0-2); Eosinophils Absolute Auto 0.2 X10*3/uL (0.0-0.4); Eosinophils Percent Auto 2.6 % (0-4); Hemoglobin 9.9 g/dl (12.0-16.0); Imm Gran Abs Auto 0.04 X10*3/uL (0.00-0.03); Imm Gran Pct Auto 0.5 % (0.0-0.4); Lymphocytes Absolute Auto 2.1 X10*3/uL (1.2-4.9); Lymphocytes Percent Auto 27.8 % (20-40); Mean Corpuscular HGB Conc 34.1 g/dl (31.0-35.0); Mean Corpuscular Hemoglobin 29.3 pg (27.0-33.0); Mean Corpuscular Volume 85.8 fL (80.0-98.0); Mean Platelet Volume 8.4 fL (9.4-12.3); Monocytes Absolute Auto 0.8 X10*3/uL (0.1-1.2); Monocytes Percent Auto 10.8 % (2-11); Neutrophils Absolute Auto 4.4 x10*3/uL (2.0-8.3); Neutrophils Percent Auto 57.9 % (45-73); Platelet Count 382 X10*3/uL (160-400); Red Blood Count 3.38 X10*6/uL (4.20-5.50); Red Cell Distribution Width 14.9 % (11.0-16.0); White Blood Count 7.7 X10*3/uL (4.8-10.8)
[2023-04-24 09:15] LABS: Glucose, Whole Blood 131 mg/dL (60-115)
[2023-04-24 09:19] LABS: Ammonia 26 umol/L (13-55)
[2023-04-24 09:27] LABS: Valproate 31.4 mcg/mL (50.0-100.0)
[2023-04-24 09:29] LABS: Alanine Aminotransferase 36 U/L (0-31); Albumin Level 3.6 g/dL (3.5-5.0); Alkaline Phosphatase 117 U/L (39-117); Anion Gap 16 (12-20); Aspartate Amino Transferase 24 U/L (5-31); Bilirubin Total 0.1 mg/dL (0.0-1.0); Blood Urea Nitrogen 22 mg/dL (9-16); Calcium 9.3 mg/dL (8.4-10.2); Carbon Dioxide 23 mmol/L (22-29); Chloride 98 mmol/L (96-108); Creatinine Clr Calc Pharmacy 91.3; Estimated Glomerular Filt Rate > 60; Glucose Fasting 131 mg/dL (60-99); Potassium 4.6 mmol/L (3.3-5.1); Sodium 132 mmol/L (135-145); Total Protein 6.1 g/dL (6.5-8.0)
[2023-04-24 10:00] VITALS: BP 84/51; PULSE 103; RESP 16; TEMP 36.6; O2SAT 94
[2023-04-24] MEDS: metFORMIN HCl ER 500 MG TAB.ER.24H 1000 MG PO ×2 (11:09→20:23)
[2023-04-24] MEDS: glipiZIDE 5 MG TABLET PO ×2 (11:10→18:12)
[2023-04-24] MEDS: Divalproex Sodium ER 250 MG TAB.ER.24H PO (11:10)
[2023-04-24] MEDS: levETIRAcetam 500 MG TABLET PO ×2 (11:10→20:23)
[2023-04-24] MEDS: Ferrous Sulfate 324 MG TABLET.DR PO (11:11)
[2023-04-24] MEDS: Insulin Glargine,Hum.rec.anlog 100 UNIT/ML 10 ML VIAL 28 UNIT SUBCUT (11:12)
--- NOTE | 2023-04-24 12:07 | PC.NURSE ---
pt had dressing changed at 1130 on 04/25. pt wanted gauze bandage wrapped around the foot. dressing is silver alginate with a gauze and tape.
[2023-04-24 13:49] LABS: Glucose, Whole Blood 286 mg/dL (60-115)
[2023-04-24] MEDS: Insulin Lispro 100 UNIT/ML 3 ML VIAL SUBCUT ×2 (13:58→18:12)
--- NOTE | 2023-04-24 14:51 | PC.NURSE ---
Pt refused EKG, will ask pt to complete again at a later time.
[2023-04-24 15:40] VITALS: BP 118/70; PULSE 102
[2023-04-24] MEDS: hydrALAZINE HCl 50 MG TABLET PO ×2 (15:48→20:24)
[2023-04-24] MEDS: Acetaminophen 325 MG TABLET 650 MG PO (16:36)
[2023-04-24 17:53] LABS: Glucose, Whole Blood 168 mg/dL (60-115)
[2023-04-24] MEDS: Loperamide HCl 2 MG CAPSULE PO (18:12)
--- NOTE | 2023-04-24 18:25 | PC.NURSE ---
Pt experienced fecal incontinence while she was sleeping. RN helped her shower and changed her dressing on her foot. RN obtained an order for one time Imodium 2mg for diarrhea. Shortly after, pt experienced incontinence again. RN used wipes to help clean herself and put on a brief.
[2023-04-24 20:23] LABS: Glucose, Whole Blood 102 mg/dL (60-115)
[2023-04-24] MEDS: NIFEdipine ER 30 MG TAB.ER.24 60 MG PO (20:23)
[2023-04-24] MEDS: QUEtiapine Fumarate 50 MG TABLET 150 MG PO (20:23)
[2023-04-24] MEDS: Divalproex Sodium ER 500 MG TAB.ER.24H PO (20:24)
[2023-04-24] MEDS: OLANZapine 10 MG TABLET PO (20:24)
[2023-04-24 20:46] VITALS: BP 145/69; PULSE 112; RESP 18; TEMP 36.7; O2SAT 93
--- NOTE | 2023-04-24 21:48 | W.PM.IDCN ---
History of Present Illness Data of Consult Service Date: 04/24/23 Primary Care Provider: Unknown Physician HPI Reason for consult: right hip dermatophytosis She presents for psychiatric care. She also reports skin lesion right hip present over last month. She says area is somewhat itchy sometimes/ Review of Systems Review of Systems: Yes all other systems are reviewed and are negative PMF Past Medical History Medical History (Updated 04/24/23 @ 21:57 by Kira Redmond MD) Dermatophytosis Seizure disorder, complex partial Osteomyelitis Bipolar 1 disorder Seizure disorder Diabetes Occipital cerebral infarction Family History Family History Father Diabetes Mother Stroke Family history: reviewed and not pertinent Social History Social History Household Members: None Housing: Homeless Do you presently have visiting nurse or other home services: No Patient Tobacco Use Status: Current everyday Tobacco user Tobacco use type: Cigarette Cigarette Packs Per Day: 2 Cigarettes Per Day: 40.0 Smoked in Last 30 Days: Yes Patient Interested in Nicotine Replacement: Yes Patient Given Instructions on How to Stop Smoking: No Second Hand Smoke Exposure: No Use of substances other than those prescribed or required for medical reasons: Yes Substance Use Type: Marijuana Substance Use Frequency: Occasionally Currently Displaying Signs/Symptoms of Drug Intoxication Withdrawal: No Any prior treatment program specific to substance use: No Have you been hit, kicked, punched, or otherwise hurt by someone within the past year? If so, by whom?: No Do you feel safe in your current relationship?: No Is there a partner from a previous relationship who is making you feel unsafe now?: No Are you made to feel afraid or neglected: No Advance Directives: Yes Advance Directives on File: Yes Advance Directives Date on File: 09/12/21 Healthcare Proxy: No Guardian: No Do you have thoughts of harming others: None Do you have a plan to hurt others: No Plan Recently lost weight without trying: No Nutrition Risks: Diabetes new onset/Uncontrolled Patient : No : No Poor oral hygiene: No service: No Sexual orientation: Decline to Answer Meds Allergies Allergy/AdvReac Type Severity Reaction Status Date / Time haloperidol Allergy Severe Nausea and Verified 03/17/23 14:24 Vomiting lithium Allergy Severe Nausea and Verified 03/17/23 14:24 Vomiting latex Allergy Mild Itching Verified 03/17/23 14:24 Active Medications: Current Medications Acetaminophen (Acetaminophen 325 Mg Tablet) 650 mg PO Q6H PRN PRN Reason: Headache/Pain Mild Scale (1-3) Last Admin: 04/24/23 16:36 Dose: 650 mg Al Hydroxide/Mg Hydroxide (Magnesium Hydrox/Alum Hydrox 30 Ml Oral.Susp) 30 ml PO Q6H PRN PRN Reason: Heartburn/Nausea Last Admin: 04/23/23 07:17 Dose: 30 ml Clonazepam (Clonazepam 1 Mg Tablet) 1 mg PO BEDTIME ONEL Last Admin: 04/24/23 20:24 Dose: 1 mg Clonazepam (Clonazepam 1 Mg Tablet) 1 mg PO BEDTIME PRN PRN Reason: Insomnia Last Admin: 04/24/23 00:46 Dose: 1 mg Clotrimazole (Clotrimazole 1 % Cream 15 Gm Tube) 1 appl TOPICAL BID [facility]; Protocol Last Admin: 04/24/23 20:25 Dose: Not Given Divalproex Sodium (Divalproex Sodium Er 500 Mg Tab.Er.24h) 500 mg PO BID [facility] Last Admin: 04/24/23 20:24 Dose: 500 mg Ferrous Sulfate (Ferrous Sulfate 324 Mg Tablet.Dr) 324 mg PO DAILY [facility] Last Admin: 04/24/23 11:11 Dose: 324 mg Glipizide (Glipizide 5 Mg Tablet) 5 mg PO BIDWM [facility] Last Admin: 04/24/23 18:12 Dose: 5 mg Hydralazine HCl (Hydralazine Hcl 50 Mg Tablet) 50 mg PO TID [facility]; Protocol Last Admin: 04/24/23 20:24 Dose: 50 mg Hydroxyzine HCl (Hydroxyzine Hcl 25 Mg Tablet) 25 mg PO Q6H PRN PRN Reason: Anxiety Last Admin: 04/24/23 04:31 Dose: 25 mg Insulin Glargine (Insulin Glargine,Hum.Rec.Anlog 100 Unit/Ml 10 Ml Vial) 28 unit SUBCUT DAILY [facility] Last Admin: 04/24/23 11:12 Dose: 28 unit Insulin Human Lispro (Insulin Lispro 100 Unit/Ml 3 Ml Vial) 0 unit SUBCUT QIDACHS [facility]; Protocol Last Admin: 04/24/23 20:27 Dose: Not Given Levetiracetam (Levetiracetam 500 Mg Tablet) 500 mg PO BID [facility] Last Admin: 04/24/23 20:23 Dose: 500 mg Losartan Potassium (Losartan Potassium 50 Mg Tablet) 100 mg PO DAILY@1200 [facility]; Protocol Last Admin: 04/24/23 11:09 Dose: Not Given Magnesium Hydroxide (Milk Of Magnesia 30 Ml Oral.Susp) 30 ml PO DAILY PRN PRN Reason: Constipation Last Admin: 04/21/23 06:51 Dose: 30 ml Metformin HCl (Metformin Hcl Er 500 Mg Tab.Er.24h) 1,000 mg PO BID [facility] Last Admin: 04/24/23 20:23 Dose: 1,000 mg Nicotine Polacrilex (Nicotine Polacrilex 2 Mg Gum) 4 mg BUCCAL Q2H PRN PRN Reason: Nicotine Cravings Nifedipine (Nifedipine Er 30 Mg Tab.Er.24) 60 mg PO BEDTIME [facility]; Protocol Last Admin: 04/24/23 20:23 Dose: 60 mg Olanzapine (Olanzapine 10 Mg Tablet) 10 mg PO BEDTIME [facility] Last Admin: 04/24/23 20:24 Dose: 10 mg Quetiapine Fumarate (Quetiapine Fumarate 50 Mg Tablet) 50 mg PO Q2H PRN PRN Reason: anxiety/restlessness Last Admin: 04/24/23 15:48 Dose: 50 mg Quetiapine Fumarate (Quetiapine Fumarate 50 Mg Tablet) 50 mg PO BID@0830,1430 [facility] Quetiapine Fumarate (Quetiapine Fumarate 50 Mg Tablet) 150 mg PO BEDTIME [facility] Last Admin: 04/24/23 20:23 Dose: 150 mg Home Medications Medication Instructions Recorded Confirmed Last Taken Type insulin glargine 100 unit/mL 20 unit subcut DAILY 03/04/23 03/25/23 03/04/23 History subcutaneous solution (Lantus U-100 Insulin) levetiracetam 750 mg tablet 750 mg PO BID 03/04/23 03/24/23 03/04/23 History (Keppra) metformin 750 mg tablet,extended 750 mg PO BEDTIME 03/04/23 03/24/23 03/04/23 History release 24 hr trazodone 50 mg tablet 50 mg PO BEDTIME 03/05/23 03/24/23 Unknown History insulin lispro 100 unit/mL 0 sliding scale dose subcut TID 03/25/23 03/25/23 Unknown History subcutaneous solution Physical Exam Vital Signs: Vital Signs: Last Vital Signs Temp 98.1 F 04/24/23 20:46 Pulse 112 H 04/24/23 20:46 Resp 18 04/24/23 20:46 BP 145/69 H 04/24/23 20:46 Pulse Ox 93 04/24/23 20:46 O2 Del Method Room Air 04/24/23 20:46 BMI result Body Mass Index 24.1 Const: General: cooperative HEENT: Head: Yes normal to inspection Face and sinus: Yes normal facial exam Mouth: Normal oral and palatal mucosa present Teeth and gingiva: dentition normal Eyes: General: appearance normal, both eyes and all related structures Pupils: Equal, round and reactive pupils present Resp: Effort & Inspection: normal respiratory effort Cardio: Rate: regular rate Rhythm: regular rhythm GI: Palpation (GI): Soft to palpation and nontender : General: Yes no CVA tenderness Back/Spine/Pelvis: Back: no CVA tenderness Skin: Other: 5 cm right hip improving area also seen by Dr Adams,Hospitalist Neuro: General: moves all extremities Cranial nerves: Yes Equal, round and reactive pupils present Extrem: General: Yes normal to inspection Psych: Appearance: grossly normal Results Labs 04/24/23 08:50 04/24/23 08:50 Labs: Short CBC 04/24/23 Range/Units 08:50 WBC 7.7 (4.8-10.8) X10*3/uL Hgb 9.9 L (12.0-16.0) g/dl Hct 29.0 L (37.0-47.0) % Plt Count 382 (160-400) X10*3/uL BMP 04/24/23 08:50 Sodium 132 L Potassium 4.6 Chloride 98 Carbon Dioxide 23 BUN 22 H Creatinine 0.58 Calcium 9.3 D Liver Function 04/24/23 Range/Units 08:50 Total Bilirubin 0.1 (0.0-1.0) mg/dL AST 24 (5-31) U/L ALT 36 H (0-31) U/L Alkaline Phosphatase 117 (39-117) U/L Albumin 3.6 (3.5-5.0) g/dL Assessment and Plan (1) Dermatophytosis: Status: Acute Right hip area lesion improving on topical clotrimazole. Area contagious 48 hours after topical,24 hours from now Plan Keep area covered with clothing. Continue topical antifungal for a week bid. Can have roommate/no precautions except cover tomorrow. If fails to resolve after week topical,consider po such as itraconazole. Time Spent With Patient Time: Total time managing care of this patient today ____ minutes.
[2023-04-24 22:41] LABS: COVID-19 Test Negative (Negative); IDNOW Serial# 08D9AD1C
--- NOTE | 2023-04-24 23:19 | HO.PSYCHPN ---
Subjective Subjective Date of Service: 04/24/23 Reason For Visit: Disorganized and dangerous behavior Subjective Notes: Section 7 Interim History: Pt seen n f/u tx planning /rounds has continued distraught agitated hitting self throwing self still with sleep difficulty sec filed pt presentlty cannot have a roomate Medication Compliance: Yes Review of Systems diabetes htn fungal infection Mental Status Exam Mental Status Exam Patient Appearance: Disheveled Patient Orientation: Person, Place and Time Level of Consciousness: Awake Patient Behavior: Restless, Belligerent, Anxious, Distractible and Impulsive Mood Description: Depressed, Anxious, Labile and Apprehensive Affect Description: Anxious, Labile, Angry and Apprehensive Speech Pattern: Perseverating, Pressured, Includes Profanity and Excited Memory Description: Working Impaired Delusions: Not Present Thought Content: positive for [place], positive for Obsessional Thoughts, negative for Suicidal Ideation or negative for Homicidal Ideation Depressive Symptoms: Increased Anxiety, Insomnia, Increased Irritability and Difficulty Concentrating Abnormal Motor Activity Signs and Symptoms: Agitation Judgement: Poor Diagnostics Vital Signs (24Hr): Vital Signs - 24 hr 04/24/23 10:00 04/24/23 15:40 04/24/23 20:46 Temperature 98 F 98.1 F Pulse Rate 103 H 102 H 112 H Respiratory Rate 16 18 Blood Pressure 84/51 L 118/70 145/69 H Pulse Oximetry 94 93 Oxygen Delivery Method Room Air Room Air BMI result Body Mass Index 24.1 Labs 04/24/23 08:50 04/24/23 08:50 Labs: Laboratory Results - last 48 hr 04/23/23 04/23/23 04/23/23 08:13 08:56 12:33 WBC RBC Hgb Hct MCV MCH MCHC RDW Plt Count MPV Immature Gran % (Auto) Neut % (Auto) Lymph % (Auto) [place] % (Auto) Eos % (Auto) Baso % (Auto) Lymph # (Auto) [place] # (Auto) Eos # (Auto) Baso # (Auto) Abs Immat Gran (auto) Absolute Neuts (auto) Absolute Nucleated RBC Nucleated RBC % (auto) Sodium 128 L Potassium 5.1 Chloride 94 L Carbon Dioxide 28 Anion Gap 11 L BUN 47 H Creatinine 0.67 Estim Creat Clear Calc 79.0 Estimated GFR > 60 POC Glucose 198 H 179 H Random Glucose 193 H Fasting Glucose Calcium 10.7 H Total Bilirubin AST ALT Alkaline Phosphatase Ammonia Total Protein Albumin Valproic Acid COVID-19 ([facility]) COVID-19 Clin Com 04/23/23 04/23/23 04/24/23 17:52 20:29 08:50 WBC 7.7 RBC 3.38 L Hgb 9.9 L Hct 29.0 L MCV 85.8 MCH 29.3 MCHC 34.1 RDW 14.9 Plt Count 382 MPV 8.4 L Immature Gran % (Auto) 0.5 H Neut % (Auto) 57.9 Lymph % (Auto) 27.8 [place] % (Auto) 10.8 Eos % (Auto) 2.6 Baso % (Auto) 0.4 Lymph # (Auto) 2.1 [place] # (Auto) 0.8 Eos # (Auto) 0.2 Baso # (Auto) 0.0 Abs Immat Gran (auto) 0.04 H Absolute Neuts (auto) 4.4 Absolute Nucleated RBC 0.000 Nucleated RBC % (auto) 0.0 Sodium 132 L Potassium 4.6 Chloride 98 Carbon Dioxide 23 Anion Gap 16 BUN 22 H Creatinine 0.58 Estim Creat Clear Calc 91.3 Estimated GFR > 60 POC Glucose 169 H 130 H Random Glucose Fasting Glucose 131 H Calcium 9.3 D Total Bilirubin 0.1 AST 24 ALT 36 H Alkaline Phosphatase 117 Ammonia 26 Total Protein 6.1 L Albumin 3.6 Valproic Acid 31.4 L COVID-19 ([facility]) COVID-19 Clin Com 04/24/23 04/24/23 04/24/23 09:09 13:13 17:50 WBC RBC Hgb Hct MCV MCH MCHC RDW Plt Count MPV Immature Gran % (Auto) Neut % (Auto) Lymph % (Auto) [place] % (Auto) Eos % (Auto) Baso % (Auto) Lymph # (Auto) [place] # (Auto) Eos # (Auto) Baso # (Auto) Abs Immat Gran (auto) Absolute Neuts (auto) Absolute Nucleated RBC Nucleated RBC % (auto) Sodium Potassium Chloride Carbon Dioxide Anion Gap BUN Creatinine Estim Creat Clear Calc Estimated GFR POC Glucose 131 H 286 H 168 H Random Glucose Fasting Glucose Calcium Total Bilirubin AST ALT Alkaline Phosphatase Ammonia Total Protein Albumin Valproic Acid COVID-19 ([facility]) COVID-19 Clin Com 04/24/23 04/24/23 20:12 21:45 WBC RBC Hgb Hct MCV MCH MCHC RDW Plt Count MPV Immature Gran % (Auto) Neut % (Auto) Lymph % (Auto) [place] % (Auto) Eos % (Auto) Baso % (Auto) Lymph # (Auto) [place] # (Auto) Eos # (Auto) Baso # (Auto) Abs Immat Gran (auto) Absolute Neuts (auto) Absolute Nucleated RBC Nucleated RBC % (auto) Sodium Potassium Chloride Carbon Dioxide Anion Gap BUN Creatinine Estim Creat Clear Calc Estimated GFR POC Glucose 102 Random Glucose Fasting Glucose Calcium Total Bilirubin AST ALT Alkaline Phosphatase Ammonia Total Protein Albumin Valproic Acid COVID-19 ([facility]) Negative COVID-19 Clin Com See Note Imaging Radiology Impressions: ITS Impressions Renal Ultrasound 04/07/23 07:47 IMPRESSION: Increased peak systolic velocity in the mid left renal artery suggestive renal artery stenosis. Follow-up imaging recommended, preferably CTA if normal renal function. Renal Ultrasound 04/07/23 07:47 IMPRESSION: Increased peak systolic velocity in the mid left renal artery suggestive renal artery stenosis. Follow-up imaging recommended, preferably CTA if normal renal function. Abdomen CTA 04/08/23 16:05 IMPRESSION: Atherosclerotic disease. No significant renal artery stenosis. Calcified plaque at both renal artery origins. Tortuous left renal artery and question mild left mid renal artery stenosis. Several indeterminate left renal lesions as described above. Follow-up dedicated renal imaging with either CT or MRI with and without contrast recommended. 1.5 x 2 cm right adrenal lesion. Given hypertension, endocrinology follow-up and additional imaging may be helpful. This could be done at the same time as renal imaging if clinically indicated. Fleischner guidelines were followed. Orbit X-Ray 04/09/23 15:37 IMPRESSION: No radiopaque foreign body seen in the skull. No radiopaque foreign body seen in the chest. The lungs are clear. Brain MRI 04/10/23 13:15 IMPRESSION: No acute intracranial abnormality. 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 Background changes of mild chronic microangiopathy. Abdomen/Pelvis CT 04/14/23 18:31 IMPRESSION: 1. Benign right adrenal adenoma. 2. Benign Bosniak class I and class II left renal cysts which need no further follow-up. 3. Other incidental findings as described above including grade 1 anterolisthesis of L4 upon L5 and marked calcific and noncalcific atherosclerotic changes in the aorta and iliofemoral vessels with possible left common iliac stenosis. Fleischner guidelines were followed. Foot X-Ray 04/18/23 16:28 IMPRESSION: No acute fracture or dislocation. Interval amputation of the fourth toe. Erosive destructive changes of the fourth metatarsal head and periosteal reaction suggestive of osteomyelitis. Periosteal reaction of the shaft of the third metatarsal bone also questionable for osteomyelitis. Question osteomyelitis and pathologic fracture of the base of the proximal phalanx of the third toe. Erosive changes of the distal tuft of the great toe questionable for osteomyelitis as well. Medications Medications Current Medications Acetaminophen (Acetaminophen 325 Mg Tablet) 650 mg PO Q6H PRN PRN Reason: Headache/Pain Mild Scale (1-3) Last Admin: 04/24/23 16:36 Dose: 650 mg Al Hydroxide/Mg Hydroxide (Magnesium Hydrox/Alum Hydrox 30 Ml Oral.Susp) 30 ml PO Q6H PRN PRN Reason: Heartburn/Nausea Last Admin: 04/23/23 07:17 Dose: 30 ml Clonazepam (Clonazepam 1 Mg Tablet) 1 mg PO BEDTIME [facility] Last Admin: 04/24/23 20:24 Dose: 1 mg Clonazepam (Clonazepam 1 Mg Tablet) 1 mg PO BEDTIME PRN PRN Reason: Insomnia Last Admin: 04/24/23 00:46 Dose: 1 mg Clotrimazole (Clotrimazole 1 % Cream 15 Gm Tube) 1 appl TOPICAL BID [facility]; Protocol Last Admin: 04/24/23 20:25 Dose: Not Given Divalproex Sodium (Divalproex Sodium Er 500 Mg Tab.Er.24h) 500 mg PO BID [facility] Last Admin: 04/24/23 20:24 Dose: 500 mg Ferrous Sulfate (Ferrous Sulfate 324 Mg Tablet.Dr) 324 mg PO DAILY [facility] Last Admin: 04/24/23 11:11 Dose: 324 mg Glipizide (Glipizide 5 Mg Tablet) 5 mg PO BIDWM [facility] Last Admin: 04/24/23 18:12 Dose: 5 mg Hydralazine HCl (Hydralazine Hcl 50 Mg Tablet) 50 mg PO TID [facility]; Protocol Last Admin: 04/24/23 20:24 Dose: 50 mg Hydroxyzine HCl (Hydroxyzine Hcl 25 Mg Tablet) 25 mg PO Q6H PRN PRN Reason: Anxiety Last Admin: 04/24/23 04:31 Dose: 25 mg Insulin Glargine (Insulin Glargine,Hum.Rec.Anlog 100 Unit/Ml 10 Ml Vial) 28 unit SUBCUT DAILY [facility] Last Admin: 04/24/23 11:12 Dose: 28 unit Insulin Human Lispro (Insulin Lispro 100 Unit/Ml 3 Ml Vial) 0 unit SUBCUT QIDACHS [facility]; Protocol Last Admin: 04/24/23 20:27 Dose: Not Given Levetiracetam (Levetiracetam 500 Mg Tablet) 500 mg PO BID [facility] Last Admin: 04/24/23 20:23 Dose: 500 mg Losartan Potassium (Losartan Potassium 50 Mg Tablet) 100 mg PO DAILY@1200 [facility]; Protocol Last Admin: 04/24/23 11:09 Dose: Not Given Magnesium Hydroxide (Milk Of Magnesia 30 Ml Oral.Susp) 30 ml PO DAILY PRN PRN Reason: Constipation Last Admin: 04/21/23 06:51 Dose: 30 ml Metformin HCl (Metformin Hcl Er 500 Mg Tab.Er.24h) 1,000 mg PO BID [facility] Last Admin: 04/24/23 20:23 Dose: 1,000 mg Nicotine Polacrilex (Nicotine Polacrilex 2 Mg Gum) 4 mg BUCCAL Q2H PRN PRN Reason: Nicotine Cravings Nifedipine (Nifedipine Er 30 Mg Tab.Er.24) 60 mg PO BEDTIME [facility]; Protocol Last Admin: 04/24/23 20:23 Dose: 60 mg Olanzapine (Olanzapine 10 Mg Tablet) 10 mg PO BEDTIME [facility] Last Admin: 04/24/23 20:24 Dose: 10 mg Quetiapine Fumarate (Quetiapine Fumarate 50 Mg Tablet) 50 mg PO Q2H PRN PRN Reason: anxiety/restlessness Last Admin: 04/24/23 15:48 Dose: 50 mg Quetiapine Fumarate (Quetiapine Fumarate 50 Mg Tablet) 50 mg PO BID@0830,1430 [facility] Quetiapine Fumarate (Quetiapine Fumarate 50 Mg Tablet) 150 mg PO BEDTIME [facility] Last Admin: 04/24/23 20:23 Dose: 150 mg Allergies Allergies Allergy/AdvReac Type Severity Reaction Status Date / Time haloperidol Allergy Severe Nausea and Verified 03/17/23 14:24 Vomiting lithium Allergy Severe Nausea and Verified 03/17/23 14:24 Vomiting latex Allergy Mild Itching Verified 03/17/23 14:24 Assessment & Plan Assessment & Plan (1) Bipolar 1 disorder, depressed, severe: Status: Acute Code(s): F31.4 - Bipolar disorder, current episode depressed, severe, without psychotic features (2) Dermatophytosis: Status: Acute Code(s): B35.9 - Dermatophytosis, unspecified Assessment and Plan: Right hip area lesion improving on topical clotrimazole. 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 Continue topical antifungal for a week bid. Can have roommate/no precautions except cover tomorrow. If fails to resolve after week topical,consider po such as itraconazole. All 04/24/2023 Patient agitated with significant insomnia irritability self harm injuries behavior intermittently. Difficult to engage in conversation hitting her head not listening Patient was seen by infectious disease continue antifungal Patient remains unstable agitated intermittently distraught has not responded to olanzapine change to Seroquel recommend mouth checks increase Depakote to 500 mg b.i.d. hyponatremia appears to have corrected Patient educated on: medication risk/benefits and medical condition Informed Consent: does not understand Reason for continued inpatient stay Substantial Risk for: inability to function, rapid decompensation and med/psych decompensation Time Spent With Patient Time: Total time managing care of this patient today ____ minutes.
[2023-04-25] MEDS: clonazePAM 1 MG TABLET PO ×2 (00:01→20:06)
[2023-04-25] MEDS: Acetaminophen 325 MG TABLET 650 MG PO ×2 (00:22→20:05)
[2023-04-25] MEDS: QUEtiapine Fumarate 50 MG TABLET PO ×9 (00:22→23:47)
[2023-04-25 08:00] VITALS: BP 121/56; PULSE 101; TEMP 36.1; O2SAT 93
[2023-04-25] MEDS: Insulin Glargine,Hum.rec.anlog 100 UNIT/ML 10 ML VIAL 28 UNIT SUBCUT (08:03)
[2023-04-25] MEDS: Divalproex Sodium ER 500 MG TAB.ER.24H PO ×2 (08:04→20:10)
[2023-04-25] MEDS: levETIRAcetam 500 MG TABLET PO ×2 (08:04→20:09)
[2023-04-25] MEDS: hydrALAZINE HCl 50 MG TABLET PO ×3 (08:04→20:10)
[2023-04-25] MEDS: glipiZIDE 5 MG TABLET PO ×2 (08:04→18:11)
[2023-04-25] MEDS: Ferrous Sulfate 324 MG TABLET.DR PO (08:04)
[2023-04-25] MEDS: metFORMIN HCl ER 500 MG TAB.ER.24H 1000 MG PO (08:04)
[2023-04-25 08:11] LABS: Glucose, Whole Blood 289 mg/dL (60-115)
[2023-04-25] MEDS: Insulin Lispro 100 UNIT/ML 3 ML VIAL SUBCUT ×3 (10:27→20:20)
[2023-04-25] MEDS: Clotrimazole 1 % Cream 15 GM TUBE 1 APPL TOPICAL (11:19)
[2023-04-25 11:30] VITALS: BP 138/65; PULSE 109
[2023-04-25] MEDS: Losartan Potassium 50 MG TABLET 100 MG PO (11:39)
[2023-04-25] MEDS: hydrOXYzine HCL 25 MG TABLET PO ×2 (11:39→18:11)
[2023-04-25 13:55] VITALS: BP 129/67; PULSE 106
[2023-04-25 18:04] LABS: Glucose, Whole Blood 304 mg/dL (60-115)
[2023-04-25 18:04] LABS: Glucose, Whole Blood 69 mg/dL (60-115)
[2023-04-25 20:00] VITALS: BP 139/80; PULSE 113; RESP 20; TEMP 36.5; O2SAT 96
[2023-04-25] MEDS: QUEtiapine Fumarate 50 MG TABLET 150 MG PO (20:07)
[2023-04-25] MEDS: OLANZapine 10 MG TABLET PO (20:08)
[2023-04-25 20:14] LABS: Glucose, Whole Blood 195 mg/dL (60-115)
[2023-04-25] MEDS: NIFEdipine ER 30 MG TAB.ER.24 60 MG PO (20:26)
--- NOTE | 2023-04-25 20:50 | HO.PSYCHPN ---
Subjective Subjective Date of Service: 04/25/23 Reason For Visit: Disorganized and dangerous behavior Interim History: calm, cooperative during interview. no questions or complaints. per staff, napped a couple of times days yesterday. getting clotrimazole for ringworm. having loose stools. refused EKG. poor sleep overnight. med-compliant. Mental Status Exam Mental Status Exam Patient Appearance: Disheveled Patient Orientation: Person, Place and Time Level of Consciousness: Awake Patient Behavior: Restless, Belligerent, Anxious, Distractible and Impulsive Mood Description: Depressed, Anxious, Labile and Apprehensive Affect Description: Anxious, Labile, Angry and Apprehensive Speech Pattern: Perseverating, Pressured, Includes Profanity and Excited Memory Description: Working Impaired Delusions: Not Present Thought Content: positive for [place], positive for Obsessional Thoughts, negative for Suicidal Ideation or negative for Homicidal Ideation Depressive Symptoms: Increased Anxiety, Insomnia, Increased Irritability and Difficulty Concentrating Abnormal Motor Activity Signs and Symptoms: Agitation Judgement: Poor Diagnostics Vital Signs (24Hr): Vital Signs - 24 hr 04/25/23 08:00 04/25/23 11:30 04/25/23 13:55 Temperature 97.0 F Pulse Rate 101 H 109 H 106 H Blood Pressure 121/56 L 138/65 129/67 Pulse Oximetry 93 Oxygen Delivery Method Room Air BMI result Body Mass Index 24.1 Labs 04/24/23 08:50 04/24/23 08:50 Labs: Laboratory Results - last 48 hr 04/24/23 04/24/23 04/24/23 08:50 09:09 13:13 WBC 7.7 RBC 3.38 L Hgb 9.9 L Hct 29.0 L MCV 85.8 MCH 29.3 MCHC 34.1 RDW 14.9 Plt Count 382 MPV 8.4 L Immature Gran % (Auto) 0.5 H Neut % (Auto) 57.9 Lymph % (Auto) 27.8 [place] % (Auto) 10.8 Eos % (Auto) 2.6 Baso % (Auto) 0.4 Lymph # (Auto) 2.1 [place] # (Auto) 0.8 Eos # (Auto) 0.2 Baso # (Auto) 0.0 Abs Immat Gran (auto) 0.04 H Absolute Neuts (auto) 4.4 Absolute Nucleated RBC 0.000 Nucleated RBC % (auto) 0.0 Sodium 132 L Potassium 4.6 Chloride 98 Carbon Dioxide 23 Anion Gap 16 BUN 22 H Creatinine 0.58 Estim Creat Clear Calc 91.3 Estimated GFR > 60 POC Glucose 131 H 286 H Fasting Glucose 131 H Calcium 9.3 D Total Bilirubin 0.1 AST 24 ALT 36 H Alkaline Phosphatase 117 Ammonia 26 Total Protein 6.1 L Albumin 3.6 Valproic Acid 31.4 L COVID-19 ([facility]) COVID-19 [employer] 04/24/23 04/24/23 04/24/23 17:50 20:12 21:45 WBC RBC Hgb Hct MCV MCH MCHC RDW Plt Count MPV Immature Gran % (Auto) Neut % (Auto) Lymph % (Auto) [place] % (Auto) Eos % (Auto) Baso % (Auto) Lymph # (Auto) [place] # (Auto) Eos # (Auto) Baso # (Auto) Abs Immat Gran (auto) Absolute Neuts (auto) Absolute Nucleated RBC Nucleated RBC % (auto) Sodium Potassium Chloride Carbon Dioxide Anion Gap BUN Creatinine Estim Creat Clear Calc Estimated GFR POC Glucose 168 H 102 Fasting Glucose Calcium Total Bilirubin AST ALT Alkaline Phosphatase Ammonia Total Protein Albumin Valproic Acid COVID-19 ([facility]) Negative COVID-[employer] See Note 04/25/23 04/25/23 04/25/23 08:05 13:31 17:58 WBC RBC Hgb Hct MCV MCH MCHC RDW Plt Count MPV Immature Gran % (Auto) Neut % (Auto) Lymph % (Auto) [place] % (Auto) Eos % (Auto) Baso % (Auto) Lymph # (Auto) [place] # (Auto) Eos # (Auto) Baso # (Auto) Abs Immat Gran (auto) Absolute Neuts (auto) Absolute Nucleated RBC Nucleated RBC % (auto) Sodium Potassium Chloride Carbon Dioxide Anion Gap BUN Creatinine Estim Creat Clear Calc Estimated GFR POC Glucose 289 H 69 304 H Fasting Glucose Calcium Total Bilirubin AST ALT Alkaline Phosphatase Ammonia Total Protein Albumin Valproic Acid COVID-19 ([facility]) COVID-[employer] 04/25/23 20:08 WBC RBC Hgb Hct MCV MCH MCHC RDW Plt Count MPV Immature Gran % (Auto) Neut % (Auto) Lymph % (Auto) [place] % (Auto) Eos % (Auto) Baso % (Auto) Lymph # (Auto) [place] # (Auto) Eos # (Auto) Baso # (Auto) Abs Immat Gran (auto) Absolute Neuts (auto) Absolute Nucleated RBC Nucleated RBC % (auto) Sodium Potassium Chloride Carbon Dioxide Anion Gap BUN Creatinine Estim Creat Clear Calc Estimated GFR POC Glucose 195 H Fasting Glucose Calcium Total Bilirubin AST ALT Alkaline Phosphatase Ammonia Total Protein Albumin Valproic Acid COVID-19 ([facility]) COVID-19 Clin Com Imaging Radiology Impressions: ITS Impressions Renal Ultrasound 04/07/23 07:47 IMPRESSION: Increased peak systolic velocity in the mid left renal artery suggestive renal artery stenosis. Follow-up imaging recommended, preferably CTA if normal renal function. Renal Ultrasound 04/07/23 07:47 IMPRESSION: Increased peak systolic velocity in the mid left renal artery suggestive renal artery stenosis. Follow-up imaging recommended, preferably CTA if normal renal function. Abdomen CTA 04/08/23 16:05 IMPRESSION: Atherosclerotic disease. No significant renal artery stenosis. Calcified plaque at both renal artery origins. Tortuous left renal artery and question mild left mid renal artery stenosis. Several indeterminate left renal lesions as described above. Follow-up dedicated renal imaging with either CT or MRI with and without contrast recommended. 1.5 x 2 cm right adrenal lesion. Given hypertension, endocrinology follow-up and additional imaging may be helpful. This could be done at the same time as renal imaging if clinically indicated. Fleischner guidelines were followed. Orbit X-Ray 04/09/23 15:37 IMPRESSION: No radiopaque foreign body seen in the skull. No radiopaque foreign body seen in the chest. The lungs are clear. Brain MRI 04/10/23 13:15 IMPRESSION: No acute intracranial abnormality. 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 Background changes of mild chronic microangiopathy. Abdomen/Pelvis CT 04/14/23 18:31 IMPRESSION: 1. Benign right adrenal adenoma. 2. Benign Bosniak class I and class II left renal cysts which need no further follow-up. 3. Other incidental findings as described above including grade 1 anterolisthesis of L4 upon L5 and marked calcific and noncalcific atherosclerotic changes in the aorta and iliofemoral vessels with possible left common iliac stenosis. Fleischner guidelines were followed. Foot X-Ray 04/18/23 16:28 IMPRESSION: No acute fracture or dislocation. Interval amputation of the fourth toe. Erosive destructive changes of the fourth metatarsal head and periosteal reaction suggestive of osteomyelitis. Periosteal reaction of the shaft of the third metatarsal bone also questionable for osteomyelitis. Question osteomyelitis and pathologic fracture of the base of the proximal phalanx of the third toe. Erosive changes of the distal tuft of the great toe questionable for osteomyelitis as well. Medications Medications Current Medications Acetaminophen (Acetaminophen 325 Mg Tablet) 650 mg PO Q6H PRN PRN Reason: Headache/Pain Mild Scale (1-3) Last Admin: 04/25/23 20:05 Dose: 650 mg Al Hydroxide/Mg Hydroxide (Magnesium Hydrox/Alum Hydrox 30 Ml Oral.Susp) 30 ml PO Q6H PRN PRN Reason: Heartburn/Nausea Last Admin: 04/23/23 07:17 Dose: 30 ml Clonazepam (Clonazepam 1 Mg Tablet) 1 mg PO BEDTIME [facility] Last Admin: 04/25/23 20:06 Dose: 1 mg Clonazepam (Clonazepam 1 Mg Tablet) 1 mg PO BEDTIME PRN PRN Reason: Insomnia Last Admin: 04/25/23 00:01 Dose: 1 mg Clotrimazole (Clotrimazole 1 % Cream 15 Gm Tube) 1 appl TOPICAL BID [facility]; Protocol Last Admin: 04/25/23 11:19 Dose: 1 appl Divalproex Sodium (Divalproex Sodium Er 500 Mg Tab.Er.24h) 500 mg PO BID [facility] Last Admin: 04/25/23 20:27 Dose: 500 mg Ferrous Sulfate (Ferrous Sulfate 324 Mg Tablet.Dr) 324 mg PO DAILY [facility] Last Admin: 04/25/23 08:04 Dose: 324 mg Glipizide (Glipizide 5 Mg Tablet) 5 mg PO BIDWM [facility] Last Admin: 04/25/23 18:11 Dose: 5 mg Hydralazine HCl (Hydralazine Hcl 50 Mg Tablet) 50 mg PO TID [facility]; Protocol Last Admin: 04/25/23 20:10 Dose: 50 mg Hydroxyzine HCl (Hydroxyzine Hcl 25 Mg Tablet) 25 mg PO Q6H PRN PRN Reason: Anxiety Last Admin: 04/25/23 18:11 Dose: 25 mg Insulin Glargine (Insulin Glargine,Hum.Rec.Anlog 100 Unit/Ml 10 Ml Vial) 28 unit SUBCUT DAILY [facility] Last Admin: 04/25/23 08:03 Dose: 28 unit Insulin Human Lispro (Insulin Lispro 100 Unit/Ml 3 Ml Vial) 0 unit SUBCUT QIDACHS [facility]; Protocol Last Admin: 04/25/23 20:20 Dose: 4 unit Levetiracetam (Levetiracetam 500 Mg Tablet) 500 mg PO BID [facility] Last Admin: 04/25/23 20:09 Dose: 500 mg Losartan Potassium (Losartan Potassium 50 Mg Tablet) 100 mg PO DAILY@1200 [facility]; Protocol Last Admin: 04/25/23 11:39 Dose: 100 mg Magnesium Hydroxide (Milk Of Magnesia 30 Ml Oral.Susp) 30 ml PO DAILY PRN PRN Reason: Constipation Last Admin: 04/21/23 06:51 Dose: 30 ml Metformin HCl (Metformin Hcl Er 500 Mg Tab.Er.24h) 1,000 mg PO BID [facility] Last Admin: 04/25/23 20:25 Dose: Not Given Nicotine Polacrilex (Nicotine Polacrilex 2 Mg Gum) 4 mg BUCCAL Q2H PRN PRN Reason: Nicotine Cravings Nifedipine (Nifedipine Er 30 Mg Tab.Er.24) 60 mg PO BEDTIME [facility]; Protocol Last Admin: 04/25/23 20:26 Dose: 60 mg Olanzapine (Olanzapine 10 Mg Tablet) 10 mg PO BEDTIME [facility] Last Admin: 04/25/23 20:08 Dose: 10 mg Quetiapine Fumarate (Quetiapine Fumarate 50 Mg Tablet) 50 mg PO Q2H PRN PRN Reason: anxiety/restlessness Last Admin: 04/25/23 20:06 Dose: 50 mg Quetiapine Fumarate (Quetiapine Fumarate 50 Mg Tablet) 50 mg PO BID@0830,1430 [facility] Last Admin: 04/25/23 14:00 Dose: 50 mg Quetiapine Fumarate (Quetiapine Fumarate 50 Mg Tablet) 150 mg PO BEDTIME [facility] Last Admin: 04/25/23 20:07 Dose: 150 mg Allergies Allergies Allergy/AdvReac Type Severity Reaction Status Date / Time haloperidol Allergy Severe Nausea and Verified 03/17/23 14:24 Vomiting lithium Allergy Severe Nausea and Verified 03/17/23 14:24 Vomiting latex Allergy Mild Itching Verified 03/17/23 14:24 Assessment & Plan Assessment & Plan (1) Bipolar 1 disorder, depressed, severe: Status: Acute Code(s): F31.4 - Bipolar disorder, current episode depressed, severe, without psychotic features (2) Dermatophytosis: Status: Acute Code(s): B35.9 - Dermatophytosis, unspecified Assessment and Plan: Right hip area lesion improving on topical clotrimazole. 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 Continue topical antifungal for a week bid. Can have roommate/no precautions except cover tomorrow. If fails to resolve after week topical,consider po such as itraconazole. All 04/24/2023 Patient agitated with significant insomnia irritability self harm injuries behavior intermittently. Difficult to engage in conversation hitting her head not listening Patient was seen by infectious disease continue antifungal Patient remains unstable agitated intermittently distraught has not responded to olanzapine change to Seroquel recommend mouth checks increase Depakote to 500 mg b.i.d. hyponatremia appears to have corrected 04/25: less agitated, not entirely cooperative with care. continue current mgmt. Reason for continued inpatient stay Substantial Risk for: harm to self, inability to function, rapid decompensation and med/psych decompensation Time Spent With Patient Time: Total time managing care of this patient today ____ minutes.
[2023-04-25] MEDS: LORazepam 1 MG TABLET PO (23:47)
[2023-04-26] MEDS: clonazePAM 1 MG TABLET PO ×2 (02:35→20:24)
[2023-04-26] MEDS: QUEtiapine Fumarate 50 MG TABLET PO ×6 (02:35→22:41)
[2023-04-26] MEDS: hydrOXYzine HCL 25 MG TABLET PO ×2 (02:35→22:41)
[2023-04-26] MEDS: Acetaminophen 325 MG TABLET 650 MG PO ×3 (05:10→22:40)
[2023-04-26 08:05] VITALS: BP 113/58; PULSE 82; TEMP 36.2; O2SAT 93
[2023-04-26] MEDS: Divalproex Sodium ER 500 MG TAB.ER.24H PO (08:13)
[2023-04-26] MEDS: hydrALAZINE HCl 50 MG TABLET PO ×3 (08:13→20:24)
[2023-04-26] MEDS: metFORMIN HCl ER 500 MG TAB.ER.24H 1000 MG PO ×2 (08:14→20:24)
[2023-04-26] MEDS: Ferrous Sulfate 324 MG TABLET.DR PO (08:14)
[2023-04-26] MEDS: glipiZIDE 5 MG TABLET PO ×2 (08:14→17:58)
[2023-04-26] MEDS: levETIRAcetam 500 MG TABLET PO ×2 (08:14→20:24)
[2023-04-26] MEDS: Insulin Glargine,Hum.rec.anlog 100 UNIT/ML 10 ML VIAL 28 UNIT SUBCUT (08:19)
[2023-04-26 08:59] LABS: Glucose, Whole Blood 190 mg/dL (60-115)
[2023-04-26] MEDS: Insulin Lispro 100 UNIT/ML 3 ML VIAL SUBCUT ×3 (09:11→20:25)
[2023-04-26] MEDS: Clotrimazole 1 % Cream 15 GM TUBE 1 APPL TOPICAL ×2 (10:07→20:26)
[2023-04-26 11:05] LABS: Ammonia 62 umol/L (13-55)
[2023-04-26 13:00] VITALS: BP 146/73; PULSE 91; RESP 16; TEMP 36.7; O2SAT 99
[2023-04-26] MEDS: Losartan Potassium 50 MG TABLET 100 MG PO (14:18)
--- NOTE | 2023-04-26 15:29 | P.PNPSI_ITS ---
Subjective Subjective Date of Service: 04/26/23 Reason For Visit: Disorganized and dangerous behavior Interim History: calm, cooperative. no questions or complaints. per staff, taking medications. more subdued this morning. testing limits. concern for akathisia secondary to seroquel at HS? did not sleep at all last NOC. napped 1 hour thus far today. concern for diabetic diet exacerbating problematic eating such as many ice creames during day. Mental Status Exam Mental Status Exam Patient Appearance: Disheveled Patient Orientation: Person, Place and Time Level of Consciousness: Awake Patient Behavior: Anxious, Distractible and Impulsive Mood Description: Depressed, Anxious, Labile and Apprehensive Affect Description: Anxious and Apprehensive Speech Pattern: Mumbled Memory Description: Working Impaired Delusions: Not Present Thought Content: positive for [place], positive for Obsessional Thoughts, negative for Suicidal Ideation or negative for Homicidal Ideation Depressive Symptoms: Increased Anxiety, Insomnia, Increased Irritability and Difficulty Concentrating Abnormal Motor Activity Signs and Symptoms: Agitation Judgement: Poor Diagnostics Vital Signs (24Hr): Vital Signs - 24 hr 04/25/23 20:00 04/26/23 08:05 04/26/23 13:00 Temperature 97.7 F 97.2 F 98.0 F Pulse Rate 113 H 82 91 Respiratory Rate 20 16 Blood Pressure 139/80 113/58 L 146/73 H Pulse Oximetry 96 93 99 Oxygen Delivery Method Room Air Room Air Room Air BMI result Body Mass Index 24.1 Labs 04/24/23 08:50 04/24/23 08:50 Labs: Laboratory Results - last 48 hr 04/24/23 04/24/23 04/24/23 17:50 20:12 21:45 POC Glucose 168 H 102 Ammonia COVID-19 ([facility]) Negative COVID-19 Clin Com See Note 04/25/23 04/25/23 04/25/23 08:05 13:31 17:58 POC Glucose 289 H 69 304 H Ammonia COVID-19 ([facility]) COVID-19 Clin Com 04/25/23 04/26/23 04/26/23 20:08 07:14 08:46 POC Glucose 195 H 190 H Ammonia 62 H COVID-19 ([facility]) COVID-19 Clin Com Imaging Radiology Impressions: ITS Impressions Renal Ultrasound 04/07/23 07:47 IMPRESSION: Increased peak systolic velocity in the mid left renal artery suggestive renal artery stenosis. Follow-up imaging recommended, preferably CTA if normal renal function. Renal Ultrasound 04/07/23 07:47 IMPRESSION: Increased peak systolic velocity in the mid left renal artery suggestive renal artery stenosis. Follow-up imaging recommended, preferably CTA if normal renal function. Abdomen CTA 04/08/23 16:05 IMPRESSION: Atherosclerotic disease. No significant renal artery stenosis. Calcified plaque at both renal artery origins. Tortuous left renal artery and question mild left mid renal artery stenosis. Several indeterminate left renal lesions as described above. Follow-up dedicated renal imaging with either CT or MRI with and without contrast recommended. 1.5 x 2 cm right adrenal lesion. Given hypertension, endocrinology follow-up and additional imaging may be helpful. This could be done at the same time as renal imaging if clinically indicated. Fleischner guidelines were followed. Orbit X-Ray 04/09/23 15:37 IMPRESSION: No radiopaque foreign body seen in the skull. No radiopaque foreign body seen in the chest. The lungs are clear. Brain MRI 04/10/23 13:15 IMPRESSION: No acute intracranial abnormality. 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 Background changes of mild chronic microangiopathy. Abdomen/Pelvis CT 04/14/23 18:31 IMPRESSION: 1. Benign right adrenal adenoma. 2. Benign Bosniak class I and class II left renal cysts which need no further follow-up. 3. Other incidental findings as described above including grade 1 anterolisthesis of L4 upon L5 and marked calcific and noncalcific atherosclerotic changes in the aorta and iliofemoral vessels with possible left common iliac stenosis. Fleischner guidelines were followed. Foot X-Ray 04/18/23 16:28 IMPRESSION: No acute fracture or dislocation. Interval amputation of the fourth toe. Erosive destructive changes of the fourth metatarsal head and periosteal reaction suggestive of osteomyelitis. Periosteal reaction of the shaft of the third metatarsal bone also questionable for osteomyelitis. Question osteomyelitis and pathologic fracture of the base of the proximal phalanx of the third toe. Erosive changes of the distal tuft of the great toe questionable for osteomyelitis as well. Medications Medications Current Medications Acetaminophen (Acetaminophen 325 Mg Tablet) 650 mg PO Q6H PRN PRN Reason: Headache/Pain Mild Scale (1-3) Last Admin: 04/26/23 05:10 Dose: 650 mg Al Hydroxide/Mg Hydroxide (Magnesium Hydrox/Alum Hydrox 30 Ml Oral.Susp) 30 ml PO Q6H PRN PRN Reason: Heartburn/Nausea Last Admin: 04/23/23 07:17 Dose: 30 ml Clonazepam (Clonazepam 1 Mg Tablet) 1 mg PO BEDTIME [facility] Last Admin: 04/25/23 20:06 Dose: 1 mg Clonazepam (Clonazepam 1 Mg Tablet) 1 mg PO BEDTIME PRN PRN Reason: Insomnia Last Admin: 04/26/23 02:35 Dose: 1 mg Clotrimazole (Clotrimazole 1 % Cream 15 Gm Tube) 1 appl TOPICAL BID [facility]; Protocol Last Admin: 04/26/23 10:07 Dose: 1 appl Divalproex Sodium (Divalproex Sodium Er 500 Mg Tab.Er.24h) 500 mg PO BID [facility] Last Admin: 04/26/23 08:13 Dose: 500 mg Ferrous Sulfate (Ferrous Sulfate 324 Mg Tablet.Dr) 324 mg PO DAILY [facility] Last Admin: 04/26/23 08:14 Dose: 324 mg Glipizide (Glipizide 5 Mg Tablet) 5 mg PO BIDWM [facility] Last Admin: 04/26/23 08:14 Dose: 5 mg Hydralazine HCl (Hydralazine Hcl 50 Mg Tablet) 50 mg PO TID [facility]; Protocol Last Admin: 04/26/23 08:13 Dose: 50 mg Hydroxyzine HCl (Hydroxyzine Hcl 25 Mg Tablet) 25 mg PO Q6H PRN PRN Reason: Anxiety Last Admin: 04/26/23 02:35 Dose: 25 mg Insulin Glargine (Insulin Glargine,Hum.Rec.Anlog 100 Unit/Ml 10 Ml Vial) 28 unit SUBCUT DAILY [facility] Last Admin: 04/26/23 08:19 Dose: 28 unit Insulin Human Lispro (Insulin Lispro 100 Unit/Ml 3 Ml Vial) 0 unit SUBCUT QIDACHS [facility]; Protocol Last Admin: 04/26/23 13:38 Dose: Not Given Levetiracetam (Levetiracetam 500 Mg Tablet) 500 mg PO BID [facility] Last Admin: 04/26/23 08:14 Dose: 500 mg Losartan Potassium (Losartan Potassium 50 Mg Tablet) 100 mg PO DAILY@1200 [facility]; Protocol Last Admin: 04/26/23 14:18 Dose: 100 mg Magnesium Hydroxide (Milk Of Magnesia 30 Ml Oral.Susp) 30 ml PO DAILY PRN PRN Reason: Constipation Last Admin: 04/21/23 06:51 Dose: 30 ml Metformin HCl (Metformin Hcl Er 500 Mg Tab.Er.24h) 1,000 mg PO BID [facility] Last Admin: 04/26/23 08:14 Dose: 1,000 mg Nicotine Polacrilex (Nicotine Polacrilex 2 Mg Gum) 4 mg BUCCAL Q2H PRN PRN Reason: Nicotine Cravings Nifedipine (Nifedipine Er 30 Mg Tab.Er.24) 60 mg PO BEDTIME [facility]; Protocol Last Admin: 04/25/23 20:26 Dose: 60 mg Olanzapine (Olanzapine 10 Mg Tablet) 10 mg PO BEDTIME [facility] Last Admin: 04/25/23 20:08 Dose: 10 mg Quetiapine Fumarate (Quetiapine Fumarate 50 Mg Tablet) 50 mg PO Q2H PRN PRN Reason: anxiety/restlessness Last Admin: 04/26/23 08:14 Dose: 50 mg Quetiapine Fumarate (Quetiapine Fumarate 50 Mg Tablet) 50 mg PO BID@0830,1430 [facility] Last Admin: 04/26/23 14:18 Dose: 50 mg Quetiapine Fumarate (Quetiapine Fumarate 50 Mg Tablet) 150 mg PO BEDTIME [facility] Last Admin: 04/25/23 20:07 Dose: 150 mg Allergies Allergies Allergy/AdvReac Type Severity Reaction Status Date / Time haloperidol Allergy Severe Nausea and Verified 03/17/23 14:24 Vomiting lithium Allergy Severe Nausea and Verified 03/17/23 14:24 Vomiting latex Allergy Mild Itching Verified 03/17/23 14:24 Assessment & Plan Assessment & Plan (1) Bipolar 1 disorder, depressed, severe: Status: Acute Code(s): F31.4 - Bipolar disorder, current episode depressed, severe, without psychotic features (2) Dermatophytosis: Status: Acute Code(s): B35.9 - Dermatophytosis, unspecified Assessment and Plan: Right hip area lesion improving on topical clotrimazole. 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 Continue topical antifungal for a week bid. Can have roommate/no precautions except cover tomorrow. If fails to resolve after week topical,consider po such as itraconazole. All 04/24/2023 Patient agitated with significant insomnia irritability self harm injuries behavior intermittently. Difficult to engage in conversation hitting her head not listening Patient was seen by infectious disease continue antifungal Patient remains unstable agitated intermittently distraught has not responded to olanzapine change to Seroquel recommend mouth checks increase Depakote to 500 mg b.i.d. hyponatremia appears to have corrected 04/25: less agitated, not entirely cooperative with care. continue current mgmt. 04/26: less agitated. no sleep at all last night. change diet to regular in hopes of decreasing reactive dietary behaviors such as ice cream bingeing while on diabetic diet. elevated ammonia, T/C D/C of VPA. Reason for continued inpatient stay Substantial Risk for: harm to self, inability to function and rapid decompensation Time Spent With Patient Time: Total time managing care of this patient today _25___ minutes.
[2023-04-26 15:30] VITALS: BP 169/75; PULSE 95
[2023-04-26 16:24] LABS: Aldosterone/Renin Ratio 9.6 Ratio (0.9-28.9); Plasma Renin Activity 1.66 ng/mL/h (0.25-5.82)
[2023-04-26 17:33] LABS: Glucose, Whole Blood 245 mg/dL (60-115)
[2023-04-26 19:27] VITALS: BP 138/64; PULSE 102; RESP 18; TEMP 36.6; O2SAT 96
[2023-04-26 20:21] LABS: Glucose, Whole Blood 256 mg/dL (60-115)
[2023-04-26] MEDS: OLANZapine 10 MG TABLET PO (20:23)
[2023-04-26] MEDS: QUEtiapine Fumarate 50 MG TABLET 150 MG PO (20:23)
[2023-04-26] MEDS: NIFEdipine ER 30 MG TAB.ER.24 60 MG PO (20:24)
[2023-04-27 08:10] LABS: Glucose, Whole Blood 164 mg/dL (60-115)
[2023-04-27 08:13] VITALS: BP 137/70; PULSE 93; RESP 18; TEMP 36.6; O2SAT 98
[2023-04-27] MEDS: metFORMIN HCl ER 500 MG TAB.ER.24H 1000 MG PO (08:14)
[2023-04-27] MEDS: hydrALAZINE HCl 50 MG TABLET PO ×3 (08:14→20:53)
[2023-04-27] MEDS: Divalproex Sodium ER 500 MG TAB.ER.24H PO (08:15)
[2023-04-27] MEDS: Ferrous Sulfate 324 MG TABLET.DR PO (08:15)
[2023-04-27] MEDS: levETIRAcetam 500 MG TABLET PO ×2 (08:15→20:53)
[2023-04-27] MEDS: glipiZIDE 5 MG TABLET PO ×2 (08:15→18:05)
[2023-04-27] MEDS: Insulin Glargine,Hum.rec.anlog 100 UNIT/ML 10 ML VIAL 28 UNIT SUBCUT (08:15)
[2023-04-27] MEDS: QUEtiapine Fumarate 50 MG TABLET PO ×3 (08:15→15:12)
[2023-04-27 09:00] VITALS: BP 137/70; PULSE 98; RESP 18; TEMP 36.6; O2SAT 93
--- NOTE | 2023-04-27 09:20 | P.PNPSI_ITS ---
Subjective Subjective Date of Service: 04/27/23 Reason For Visit: Disorganized and dangerous behavior Subjective Notes: Section 7 Interim History: Reviewed in team and . Patient presents irritable today. Observed yelling at times d/t not being able to get a hold of her cousin via phone; low distress tolerance. Pt began banging head and screaming at staff to leave her alone. Medication Compliance: Yes Side effects from medications: No Attending Groups: No Review of Systems Constitutional: Reports as per HPI Eyes: Reports as per HPI Reports as per HPI Cardiovascular: Reports as per HPI Respiratory: Reports as per HPI Gastrointestinal: Reports as per HPI Genitourinary: Reports as per HPI Musculoskeletal: Reports as per HPI Skin/Breast: Reports as per HPI Reports as per HPI Psychiatric: Reports as per HPI Endocrine: Reports as per HPI Hematologic/Lymphatic: Reports as per HPI Allergic/Immunologic: Reports as per HPI Mental Status Exam Mental Status Exam Narrative: Patient Appearance: Disheveled Patient Orientation: Person, Place and Time Level of Consciousness: Awake Patient Behavior: Anxious, Distractible and Impulsive Mood Description: Depressed, Anxious, Labile and Apprehensive Affect Description: Anxious and Apprehensive Speech Pattern: Mumbled Memory Description: Working Impaired Delusions: Not Present Thought Content: positive for [place], positive for Obsessional Thoughts, negative for Suicidal Ideation or negative for Homicidal Ideation Depressive Symptoms: Increased Anxiety, Insomnia, Increased Irritability and Difficulty Concentrating Abnormal Motor Activity Signs and Symptoms: Agitation Judgement: Poor Diagnostics Vital Signs (24Hr): Vital Signs - 24 hr 04/26/23 13:00 04/26/23 15:30 04/26/23 19:27 Temperature 98.0 F 97.8 F Pulse Rate 91 95 102 H Respiratory Rate 16 18 Blood Pressure 146/73 H 169/75 H 138/64 Pulse Oximetry 99 96 Oxygen Delivery Method Room Air Room Air 04/27/23 08:13 04/27/23 09:00 Temperature 97.8 F 97.8 F Pulse Rate 93 98 Respiratory Rate 18 18 Blood Pressure 137/70 137/70 Pulse Oximetry 98 93 Oxygen Delivery Method Room Air Room Air BMI result Body Mass Index 24.1 Labs 04/24/23 08:50 04/29/23 08:34 Labs: Laboratory Results - last 48 hr 04/16/23 04/25/23 04/25/23 08:21 13:31 17:58 POC Glucose 69 304 H Ammonia Renin Activity 1.66 Aldosterone 16 Aldosterone/Renin Ratio 9.6 04/25/23 04/26/23 04/26/23 20:08 07:14 08:46 POC Glucose 195 H 190 H Ammonia 62 H Renin Activity Aldosterone Aldosterone/Renin Ratio 04/26/23 04/26/23 04/27/23 17:23 20:09 08:03 POC Glucose 245 H 256 H 164 H Ammonia Renin Activity Aldosterone Aldosterone/Renin Ratio Imaging Radiology Impressions: ITS Impressions Renal Ultrasound 04/07/23 07:47 IMPRESSION: Increased peak systolic velocity in the mid left renal artery suggestive renal artery stenosis. Follow-up imaging recommended, preferably CTA if normal renal function. Renal Ultrasound 04/07/23 07:47 IMPRESSION: Increased peak systolic velocity in the mid left renal artery suggestive renal artery stenosis. Follow-up imaging recommended, preferably CTA if normal renal function. Abdomen CTA 04/08/23 16:05 IMPRESSION: Atherosclerotic disease. No significant renal artery stenosis. Calcified plaque at both renal artery origins. Tortuous left renal artery and question mild left mid renal artery stenosis. Several indeterminate left renal lesions as described above. Follow-up dedicated renal imaging with either CT or MRI with and without contrast recommended. 1.5 x 2 cm right adrenal lesion. Given hypertension, endocrinology follow-up and additional imaging may be helpful. This could be done at the same time as renal imaging if clinically indicated. Fleischner guidelines were followed. Orbit X-Ray 04/09/23 15:37 IMPRESSION: No radiopaque foreign body seen in the skull. No radiopaque foreign body seen in the chest. The lungs are clear. Brain MRI 04/10/23 13:15 IMPRESSION: No acute intracranial abnormality. 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 Background changes of mild chronic microangiopathy. Abdomen/Pelvis CT 04/14/23 18:31 IMPRESSION: 1. Benign right adrenal adenoma. 2. Benign Bosniak class I and class II left renal cysts which need no further follow-up. 3. Other incidental findings as described above including grade 1 anterolisthesis of L4 upon L5 and marked calcific and noncalcific atherosclerotic changes in the aorta and iliofemoral vessels with possible left common iliac stenosis. Fleischner guidelines were followed. Foot X-Ray 04/18/23 16:28 IMPRESSION: No acute fracture or dislocation. Interval amputation of the fourth toe. Erosive destructive changes of the fourth metatarsal head and periosteal reaction suggestive of osteomyelitis. Periosteal reaction of the shaft of the third metatarsal bone also questionable for osteomyelitis. Question osteomyelitis and pathologic fracture of the base of the proximal phalanx of the third toe. Erosive changes of the distal tuft of the great toe questionable for osteomyelitis as well. Medications Medications Current Medications Acetaminophen (Acetaminophen 325 Mg Tablet) 650 mg PO Q6H PRN PRN Reason: Headache/Pain Mild Scale (1-3) Last Admin: 04/26/23 22:40 Dose: 650 mg Al Hydroxide/Mg Hydroxide (Magnesium Hydrox/Alum Hydrox 30 Ml Oral.Susp) 30 ml PO Q6H PRN PRN Reason: Heartburn/Nausea Last Admin: 04/23/23 07:17 Dose: 30 ml Clonazepam (Clonazepam 1 Mg Tablet) 1 mg PO BEDTIME [facility] Last Admin: 04/26/23 20:24 Dose: 1 mg Clonazepam (Clonazepam 1 Mg Tablet) 1 mg PO BEDTIME PRN PRN Reason: Insomnia Last Admin: 04/26/23 02:35 Dose: 1 mg Clotrimazole (Clotrimazole 1 % Cream 15 Gm Tube) 1 appl TOPICAL BID [facility]; Protocol Last Admin: 04/26/23 20:26 Dose: 1 appl Divalproex Sodium (Divalproex Sodium Er 500 Mg Tab.Er.24h) 500 mg PO DAILY [facility] Last Admin: 04/27/23 08:15 Dose: 500 mg Ferrous Sulfate (Ferrous Sulfate 324 Mg Tablet.Dr) 324 mg PO DAILY [facility] Last Admin: 04/27/23 08:15 Dose: 324 mg Glipizide (Glipizide 5 Mg Tablet) 5 mg PO BIDWM [facility] Last Admin: 04/27/23 08:15 Dose: 5 mg Hydralazine HCl (Hydralazine Hcl 50 Mg Tablet) 50 mg PO TID [facility]; Protocol Last Admin: 04/27/23 08:14 Dose: 50 mg Hydroxyzine HCl (Hydroxyzine Hcl 25 Mg Tablet) 25 mg PO Q6H PRN PRN Reason: Anxiety Last Admin: 04/26/23 22:41 Dose: 25 mg Insulin Glargine (Insulin Glargine,Hum.Rec.Anlog 100 Unit/Ml 10 Ml Vial) 28 unit SUBCUT DAILY [facility] Last Admin: 04/27/23 08:15 Dose: 28 unit Insulin Human Lispro (Insulin Lispro 100 Unit/Ml 3 Ml Vial) 0 unit SUBCUT QIDACHS [facility]; Protocol Last Admin: 04/27/23 09:14 Dose: Not Given Levetiracetam (Levetiracetam 500 Mg Tablet) 500 mg PO BID [facility] Last Admin: 04/27/23 08:15 Dose: 500 mg Losartan Potassium (Losartan Potassium 50 Mg Tablet) 100 mg PO DAILY@1200 [facility]; Protocol Last Admin: 04/26/23 14:18 Dose: 100 mg Magnesium Hydroxide (Milk Of Magnesia 30 Ml Oral.Susp) 30 ml PO DAILY PRN PRN Reason: Constipation Last Admin: 04/21/23 06:51 Dose: 30 ml Metformin HCl (Metformin Hcl Er 500 Mg Tab.Er.24h) 1,000 mg PO BID [facility] Last Admin: 04/27/23 08:14 Dose: 1,000 mg Nicotine Polacrilex (Nicotine Polacrilex 2 Mg Gum) 4 mg BUCCAL Q2H PRN PRN Reason: Nicotine Cravings Nifedipine (Nifedipine Er 30 Mg Tab.Er.24) 60 mg PO BEDTIME [facility]; Protocol Last Admin: 04/26/23 20:24 Dose: 60 mg Olanzapine (Olanzapine 10 Mg Tablet) 10 mg PO BEDTIME [facility] Last Admin: 04/26/23 20:23 Dose: 10 mg Quetiapine Fumarate (Quetiapine Fumarate 50 Mg Tablet) 50 mg PO Q2H PRN PRN Reason: anxiety/restlessness Last Admin: 04/26/23 22:41 Dose: 50 mg Quetiapine Fumarate (Quetiapine Fumarate 50 Mg Tablet) 50 mg PO BID@0830,1430 [facility] Last Admin: 04/27/23 08:15 Dose: 50 mg Quetiapine Fumarate (Quetiapine Fumarate 50 Mg Tablet) 150 mg PO BEDTIME [facility] Last Admin: 04/26/23 20:23 Dose: 150 mg Allergies Allergies Allergy/AdvReac Type Severity Reaction Status Date / Time haloperidol Allergy Severe Nausea and Verified 03/17/23 14:24 Vomiting lithium Allergy Severe Nausea and Verified 03/17/23 14:24 Vomiting latex Allergy Mild Itching Verified 03/17/23 14:24 Assessment & Plan Assessment & Plan (1) Bipolar 1 disorder, depressed, severe: Status: Acute Code(s): F31.4 - Bipolar disorder, current episode depressed, severe, without psychotic features (2) Dermatophytosis: Status: Acute Code(s): B35.9 - Dermatophytosis, unspecified Assessment and Plan: Right hip area lesion improving on topical clotrimazole. 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, damage, and dysfunction: Status: Acute Code(s): G93.9 - Disorder of brain, unspecified; F07.9 - Unspecified personality and behavioral disorder due to known physiological condition (6) Seizure disorder, complex partial: Status: Acute Code(s): G40.209 - Localization-related (focal) (partial) symptomatic epilepsy and epileptic syndromes with complex partial seizures, not intractable, without status epilepticus Plan Patient is a 57 year old woman with hx of bipolar d/o who presented to ER via ambulance and section 12 from [place] [employer] secondary to erratic behavior, initially being unresponsive then throwing herself to the group, hitting, biting and choking herself. Plan: 3 day 15 minute safety checks Continue home medications Hospitalist consult for uncontrolled diabetes and low sodium Surgery consult for directions of wound care of toes 03/27:Patient was seen by surgical today for her toes. Surgical provider stated, Wounds are healing appropriately; sutures removed and clean dressings applied. Continue daily dressing changes with 3x3 or 2x2 gauze at base of 4th toes followed by 3 inch sarah wrap. She can follow up in my office in one month. She is also being followed by hospitalist for hyponatremia, hyperglycemia, and hypertension. Hospitalist reports they will change hydralazine to 50 mg p.o. t.i.d.. If BP remains elevated will add losartan 50 mg q.d. They will continue to follow for now. 03/28: Continue current plans and regimen 03/29: Continue current plans and regimen. Addition to right foot wound care 03/30: Continue current regimen and plans. Increased trazodone to 200 mg. Placed surgical consult for right foot evaluation 03/31: Pt guarded and irritable today. Retracted 3 day with social service director, then signed another one; She refused to meet with T/W. Patient stated, I'm fine. I don't like it here. I want to be left alone . Pt denies SI/HI/VH/AH at this time. Pt was seen for surgical consult; note stated; Right foot noted to have increased discharge. Silver alginate applied yesterday. Left foot healed. Continued daily dressing changed with silver alginate, DSD to right foot. Contine current tx plan. 04/01: Pt continues guarded and irritable today. Patient stated, I hope I get into the rehab. I'm going to keep taking my meds. I just don't want to be here anymore . Pt has been attending groups but keeping to self. continue tx plan. 04/02: Pt presents guarded and irritable today. Patient stated, I'm doing alright. I'm looking forward to leaving here. I want to learn how to do my dressing on my foot . RN was notified to educate patient on this topic. Pt has been attending groups but keeping to self. 3 day is due tomorrow. 04/03: Pt continues irritable today. Reports she does not want to be here but understands it is not medically castro to be discharged d/t her being unable to care for wound. Concerned about belongings; her belongings from halfway were brought to hospital; now feels less anxious. Retracted 3 day. Social work will continue to look for placement. OT to do MOCA. Continue current tx plan. 04/05: No changes to current plan 04/06: Observed attending groups. When OT attempted to conduct MOCA; pt was unable to tolerate questioning and starting rocking back and forth stating I don't know ; when she was instructed to take a deep breath, she was then able to answer some questions. T/W and met with patient in the afternoon to assess patient's insight into medical/psychiatric issues; pt was able to express that she would be interested in going to an assisted living housing. Pt stated, I hate people here, I just want to leave. I know I have no where to go . Continue current tx plan. Hospitalist consult placed for continued HTN, elevated blood sugars and possible toe infection. 04/07: Patient presents irritable and guarded during 1:1. Patient reports she is hoping to get into the program. I don't like the idea of them getting all my money but it's better than being homeless . Pt was seen by hospitalist; see note; medication were adjusted. pt was seen by surgery today for foot; Recommend continuing the current dressing changes with silver alginate and DSD. Health care proxy to be contacted tomorrow; possibly will invoke d/t patients mental status and medical condition. 04/08: Patient unable to tolerate long conversations, she becomes frustrated, begins to make a whining noise and starts to hit herself in the head and pull her hair. Patient had a interview with admission director of [facility]; per social service director, pt became easily frustrated, could not recall answers to basic questions and started hitting herself. [facility] denied her admission. [employer] worker reported informing patient of denial; when T/W discussed it with her later in the afternoon, pt did not recall the conversation with social service director and stated she did not know she was not accepted at [facility]. Pt stated, I want to leave. I don't care if I go to the streets and . Started Trileptal 150mg PO BID; risks/benefits discussed. Decreased Keppra to 500mg PO BID. Hospitalist ordered CT scan angio abdomen; pt aware; ordered Ativan 2mg PO once for procedure. T/W called Health care proxy, number not in service. 04/09: T/W asked if the treatment team could speak to her cousin Randa who is her health care proxy; pt gave verbal permission. Section 7 and 8 to be filed d/t patient safety and inability to care for herself. T/W spoke to Randa; Randa stated she is aware of being [facility] health care proxy and does not have an issue if the health care proxy needed to be invoked. She expressed concern regarding [facility] ability to care for herself and stated she has been declining cognitively over the past few years. Randa stated she would be willing to testify her concerns in court. MRI ordered d/t worsening behavior and cognition. 04/10: Trial up till added for control of seizures and mood stability trying decrease olanzapine start Vraylar to help with significantly elevated blood sugar patient with Section 7 filed will re-evaluate 04/[address] Candelario wondered if inc trileptal and then decreasing keppra would be next step - seems less irritable, though maybe depressed- after that could consider taper off olanzapine and move to vraylar. as per dr candelario 04/13: Trileptal added for control of mood labilit taper keppera? nodule on ct follow with medicine 04/14: lower keppra trileptal 300 bid cont to dec olanzapine inc vraylar 3 mg daily 04/16: Pt overwhelmed anxious poor sleep was cooperative recent medical testing cking adrenal system and for tx resistant htn 04/17: Patient is depressed irritable in mixed state periods of regression was able to complete 1st part of [place] then did not completed with OT. The patient has difficulty with sleep restlessness in spite of lorazepam and trazodone and olanzapine at bedtime. Stop trazodone change Ativan to clonazepam increase Zyprexa back to 20 mg will to all at bedtime monitor had a poor response to regarding diabetes. Questionable allergy to Vraylar could consider Geodon if diabetes worsens discharge planning patient did allow referral to [facility]. Continue oxcarbazepine 04/18: Continue treatment plan. 04/19: FU on final results of foot Xray. Continue treatment plan. 04/20: Patient did verbally submit a 3 day after conversation. A week previously I we did halt a section 7 process as the patient did sign a conditional voluntary which at the time she said was of her own free will and was accepting treatment and seem to understand that time that she needed further treatment and we would help her with the discharge plan. We have considered invoking healthcare proxy at times patient has generally been cooperative with medical treatment she understands she has hypertension diabetes understood brain MRI was to look for any evidence of brain injury or process that might be interfering. Patient does have a significantly impaired frustration tolerance she is depressed and irritable had not been taking care of herself over the past few months prior to admission leading to medical difficulties. At time she seems to understand this at other times not. She has not been cooperative with more intensive cognitive testing she does have some word-finding problems at times.Continue diabetes and antihypertensive treatment.Evaluate for commitment in treatment plan 04/21: Patient remains dysphoric in irritable poor sleep somewhat Behavioral old his disrupted is takes medication and treatment with structure but impulsive low frustration tolerance poor concentration regarding being a being able to manage this herself at this time. Three day notice continues evaluate need for commitment and treatment plan also evaluate consideration of invoking healthcare proxy which would be S some diff if he is commitment approved.Reviewed repeatedly with hospitalist service they did not feel patient required medical transfer and given hyponatremia 118 with presumed gradual change no major change in level of alertness that they felt could be treated on the psychiatric unit. Urea STARTED SALT TABLETS STARTED. Monitor cognition and alertness monitor response to to treatment hospitalist service following nephrology consult. Will start low-dose Depakote and clonidine see if this is helpful for mood and sleep. 04/22: Has predilection for excess ADH Hyponatremia due to excess ADH Euvolemic; Urine studies reviewed Had been on Trilpetal- discontinued Mentation at baseline Started on NaCl tablets & PO Urea Serum sodium better No indication for hypertonic saline/ tolvaptan now C/W current supportive care for now Pt on 3 day lablle depressed difficulty at this time for self care impaired judgement yelling I want to go but not processing multiple issues presently going on hyponatremia depression mood instability started on depakote seroquel for mood stability depression urea sodium tabs for hyponatremia trileptal d/c nephrology consult reviewed on tx for ? nathan second opinion ordered dr thomas follow sodium file for sec 7 04/23: Pt started thorazine 25 hs dep 250 tid file sec 7 tx plan 04/24: Patient agitated with significant insomnia irritability self harm injuries behavior intermittently. Difficult to engage in conversation hitting her head not listening Patient was seen by infectious disease continue antifungal Patient remains unstable agitated intermittently distraught has not responded to olanzapine change to Seroquel recommend mouth checks increase Depakote to 500 mg b.i.d. hyponatremia appears to have corrected 04/25: less agitated, not entirely cooperative with care. continue current mgmt. 04/26: less agitated. no sleep at all last night. change diet to regular in hopes of decreasing reactive dietary behaviors such as ice cream bingeing while on diabetic diet. elevated ammonia, T/C D/C of VPA. 04/27: Patient presents irritable today. Observed yelling at times d/t not being able to get a hold of her cousin via phone; low distress tolerance. Pt began banging head and screaming at staff to leave her alone. Ammonia 37. DC depakote. Start Tegretol 100mg PO BID; monitor sodium and BP. Patient educated on: diagnosis, medication risk/benefits and therapeutic strategies Informed Consent: understands and further education needed Reason for continued inpatient stay Substantial Risk for: med/psych decompensation Time Spent With Patient Time: Total time managing care of this patient today _30___ minutes.
[2023-04-27] MEDS: Insulin Lispro 100 UNIT/ML 3 ML VIAL SUBCUT ×2 (10:14→18:05)
[2023-04-27] MEDS: LORazepam 1 MG TABLET 2 MG PO (10:57)
[2023-04-27 12:36] LABS: Ammonia 37 umol/L (13-55)
[2023-04-27 12:39] LABS: Valproate 35.4 mcg/mL (50.0-100.0)
[2023-04-27 12:41] LABS: Glucose, Whole Blood 82 mg/dL (60-115)
[2023-04-27 12:42] LABS: Alanine Aminotransferase 25 U/L (0-31); Albumin Level 3.8 g/dL (3.5-5.0); Alkaline Phosphatase 114 U/L (39-117); Aspartate Amino Transferase 15 U/L (5-31); Bilirubin Direct < 0.2 mg/dL (0.0-0.5); Bilirubin Total 0.1 mg/dL (0.0-1.0); Total Protein 6.4 g/dL (6.5-8.0)
[2023-04-27] MEDS: Losartan Potassium 50 MG TABLET 100 MG PO (12:55)
[2023-04-27 15:13] VITALS: BP 131/63; PULSE 100; RESP 16; O2SAT 94
[2023-04-27 18:02] LABS: Glucose, Whole Blood 172 mg/dL (60-115)
[2023-04-27 20:05] VITALS: BP 160/90; PULSE 102; RESP 18; TEMP 36.6; O2SAT 98
[2023-04-27 20:51] LABS: Glucose, Whole Blood 93 mg/dL (60-115)
[2023-04-27] MEDS: NIFEdipine ER 30 MG TAB.ER.24 60 MG PO (20:53)
[2023-04-27] MEDS: clonazePAM 1 MG TABLET PO (20:53)
[2023-04-27] MEDS: QUEtiapine Fumarate 50 MG TABLET 150 MG PO (20:54)
[2023-04-27] MEDS: OLANZapine 10 MG TABLET PO (20:54)
[2023-04-28 08:20] LABS: Glucose, Whole Blood 313 mg/dL (60-115)
[2023-04-28 09:13] VITALS: BP 139/70; PULSE 96; RESP 18; TEMP 36.6; O2SAT 95
[2023-04-28] MEDS: Insulin Glargine,Hum.rec.anlog 100 UNIT/ML 10 ML VIAL 28 UNIT SUBCUT (09:15)
[2023-04-28] MEDS: Insulin Lispro 100 UNIT/ML 3 ML VIAL SUBCUT ×4 (09:15→20:38)
[2023-04-28] MEDS: glipiZIDE 5 MG TABLET PO ×2 (09:16→18:02)
[2023-04-28] MEDS: QUEtiapine Fumarate 50 MG TABLET PO ×2 (09:17→15:05)
[2023-04-28] MEDS: levETIRAcetam 500 MG TABLET PO (09:17)
[2023-04-28] MEDS: hydrALAZINE HCl 50 MG TABLET PO ×3 (09:17→20:42)
[2023-04-28] MEDS: metFORMIN HCl ER 500 MG TAB.ER.24H 1000 MG PO (09:17)
[2023-04-28] MEDS: Ferrous Sulfate 324 MG TABLET.DR PO (09:17)
--- NOTE | 2023-04-28 09:39 | P.PNPSI_ITS ---
Subjective Subjective Date of Service: 04/28/23 Reason For Visit: Disorganized and dangerous behavior Subjective Notes: Section 7 Interim History: Reviewed in team and . Patient continues to present irritable today. Observed yelling at staff d/t not wanting to take tegretol; when asked why, pt reports it had given her an upset stomach before and she refused to take it again. Pt continues with low distress tolerance; begins kicking in bed, whining, raising voice. She presents calmer today, however reports she feels lousy . T/W and RN attempted to explain medications to patient, patient began yelling and stated, I don't care! I don't want to know! . Medication Compliance: Intermittent Side effects from medications: No Attending Groups: Intermittent Review of Systems Review of Systems unremarkable Constitutional: Reports as per HPI Eyes: Reports as per HPI Reports as per HPI Cardiovascular: Reports as per HPI Respiratory: Reports as per HPI Gastrointestinal: Reports as per HPI Genitourinary: Reports as per HPI Musculoskeletal: Reports as per HPI Skin/Breast: Reports as per HPI Reports as per HPI Psychiatric: Reports as per HPI Endocrine: Reports as per HPI Hematologic/Lymphatic: Reports as per HPI Allergic/Immunologic: Reports as per HPI Mental Status Exam Mental Status Exam Narrative: Patient Appearance: Disheveled Patient Orientation: Person, Place and Time Level of Consciousness: Awake Patient Behavior: Anxious, Distractible and Impulsive Mood Description: Depressed, Anxious, Labile and Apprehensive Affect Description: Anxious and Apprehensive Speech Pattern: Mumbled Memory Description: Working Impaired Delusions: Not Present Thought Content: positive for Somis, positive for Obsessional Thoughts, negative for Suicidal Ideation or negative for Homicidal Ideation Depressive Symptoms: Increased Anxiety, Insomnia, Increased Irritability and Difficulty Concentrating Abnormal Motor Activity Signs and Symptoms: Agitation Judgement: Poor Behavior Comments: Oral facial dyskinesia noted ongoing Diagnostics Vital Signs (24Hr): Vital Signs - 24 hr 04/27/23 15:13 04/27/23 20:05 04/28/23 09:13 Temperature 97.9 F 97.9 F Pulse Rate 100 102 H 96 Respiratory Rate 16 18 18 Blood Pressure 131/63 160/90 H 139/70 Pulse Oximetry 94 98 95 Oxygen Delivery Method Room Air Room Air Room Air BMI result Body Mass Index 24.1 Labs 04/24/23 08:50 04/24/23 08:50 Labs: Laboratory Results - last 48 hr 04/16/23 04/26/23 04/26/23 08:21 07:14 17:23 POC Glucose 245 H Total Bilirubin Direct Bilirubin AST ALT Alkaline Phosphatase Ammonia 62 H Total Protein Albumin Renin Activity 1.66 Aldosterone 16 Aldosterone/Renin Ratio 9.6 Valproic Acid 04/26/23 04/27/23 04/27/23 20:09 08:03 12:16 POC Glucose 256 H 164 H Total Bilirubin 0.1 Direct Bilirubin < 0.2 AST 15 ALT 25 Alkaline Phosphatase 114 Ammonia 37 Total Protein 6.4 L Albumin 3.8 Renin Activity Aldosterone Aldosterone/Renin Ratio Valproic Acid 35.4 L 04/27/23 04/27/23 04/27/23 12:36 17:55 20:47 POC Glucose 82 172 H 93 Total Bilirubin Direct Bilirubin AST ALT Alkaline Phosphatase Ammonia Total Protein Albumin Renin Activity Aldosterone Aldosterone/Renin Ratio Valproic Acid 04/28/23 08:09 POC Glucose 313 H Total Bilirubin Direct Bilirubin AST ALT Alkaline Phosphatase Ammonia Total Protein Albumin Renin Activity Aldosterone Aldosterone/Renin Ratio Valproic Acid Imaging Radiology Impressions: ITS Impressions Renal Ultrasound 04/07/23 07:47 IMPRESSION: Increased peak systolic velocity in the mid left renal artery suggestive renal artery stenosis. Follow-up imaging recommended, preferably CTA if normal renal function. Renal Ultrasound 04/07/23 07:47 IMPRESSION: Increased peak systolic velocity in the mid left renal artery suggestive renal artery stenosis. Follow-up imaging recommended, preferably CTA if normal renal function. Abdomen CTA 04/08/23 16:05 IMPRESSION: Atherosclerotic disease. No significant renal artery stenosis. Calcified plaque at both renal artery origins. Tortuous left renal artery and question mild left mid renal artery stenosis. Several indeterminate left renal lesions as described above. Follow-up dedicated renal imaging with either CT or MRI with and without contrast recommended. 1.5 x 2 cm right adrenal lesion. Given hypertension, endocrinology follow-up and additional imaging may be helpful. This could be done at the same time as renal imaging if clinically indicated. Fleischner guidelines were followed. Orbit X-Ray 04/09/23 15:37 IMPRESSION: No radiopaque foreign body seen in the skull. No radiopaque foreign body seen in the chest. The lungs are clear. Brain MRI 04/10/23 13:15 IMPRESSION: No acute intracranial abnormality. 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 Background changes of mild chronic microangiopathy. Abdomen/Pelvis CT 04/14/23 18:31 IMPRESSION: 1. Benign right adrenal adenoma. 2. Benign Bosniak class I and class II left renal cysts which need no further follow-up. 3. Other incidental findings as described above including grade 1 anterolisthesis of L4 upon L5 and marked calcific and noncalcific atherosclerotic changes in the aorta and iliofemoral vessels with possible left common iliac stenosis. Fleischner guidelines were followed. Foot X-Ray 04/18/23 16:28 IMPRESSION: No acute fracture or dislocation. Interval amputation of the fourth toe. Erosive destructive changes of the fourth metatarsal head and periosteal reaction suggestive of osteomyelitis. Periosteal reaction of the shaft of the third metatarsal bone also questionable for osteomyelitis. Question osteomyelitis and pathologic fracture of the base of the proximal phalanx of the third toe. Erosive changes of the distal tuft of the great toe questionable for osteomyelitis as well. Medications Medications Current Medications Acetaminophen (Acetaminophen 325 Mg Tablet) 650 mg PO Q6H PRN PRN Reason: Headache/Pain Mild Scale (1-3) Last Admin: 04/26/23 22:40 Dose: 650 mg Al Hydroxide/Mg Hydroxide (Magnesium Hydrox/Alum Hydrox 30 Ml Oral.Susp) 30 ml PO Q6H PRN PRN Reason: Heartburn/Nausea Last Admin: 04/23/23 07:17 Dose: 30 ml Carbamazepine (Carbamazepine Er 100 Mg Tab.Er.12h) 100 mg PO BID [facility] Last Admin: 04/28/23 09:19 Dose: Not Given Clonazepam (Clonazepam 1 Mg Tablet) 1 mg PO BEDTIME [facility] Last Admin: 04/27/23 20:53 Dose: 1 mg Clonazepam (Clonazepam 1 Mg Tablet) 1 mg PO BEDTIME PRN PRN Reason: Insomnia Last Admin: 04/26/23 02:35 Dose: 1 mg Clotrimazole (Clotrimazole 1 % Cream 15 Gm Tube) 1 appl TOPICAL BID [facility]; Protocol Last Admin: 04/27/23 20:51 Dose: Not Given Ferrous Sulfate (Ferrous Sulfate 324 Mg Tablet.) 324 mg PO DAILY [facility] Last Admin: 04/28/23 09:17 Dose: 324 mg Glipizide (Glipizide 5 Mg Tablet) 5 mg PO BIDWM [facility] Last Admin: 04/28/23 09:16 Dose: 5 mg Hydralazine HCl (Hydralazine Hcl 50 Mg Tablet) 50 mg PO TID [facility]; Protocol Last Admin: 04/28/23 09:17 Dose: 50 mg Hydroxyzine HCl (Hydroxyzine Hcl 25 Mg Tablet) 25 mg PO Q6H PRN PRN Reason: Anxiety Last Admin: 04/26/23 22:41 Dose: 25 mg Insulin Glargine (Insulin Glargine,Hum.Rec.Anlog 100 Unit/Ml 10 Ml Vial) 28 unit SUBCUT DAILY [facility] Last Admin: 04/28/23 09:15 Dose: 28 unit Insulin Human Lispro (Insulin Lispro 100 Unit/Ml 3 Ml Vial) 0 unit SUBCUT QIDACHS [facility]; Protocol Last Admin: 04/28/23 09:15 Dose: 10 unit Levetiracetam (Levetiracetam 500 Mg Tablet) 500 mg PO BID [facility] Last Admin: 04/28/23 09:17 Dose: 500 mg Losartan Potassium (Losartan Potassium 50 Mg Tablet) 100 mg PO DAILY@1200 [facility]; Protocol Last Admin: 04/27/23 12:55 Dose: 100 mg Magnesium Hydroxide (Milk Of Magnesia 30 Ml Oral.Susp) 30 ml PO DAILY PRN PRN Reason: Constipation Last Admin: 04/21/23 06:51 Dose: 30 ml Metformin HCl (Metformin Hcl Er 500 Mg Tab.Er.24h) 1,000 mg PO BID [facility] Last Admin: 04/28/23 09:17 Dose: 1,000 mg Nicotine Polacrilex (Nicotine Polacrilex 2 Mg Gum) 4 mg BUCCAL Q2H PRN PRN Reason: Nicotine Cravings Nifedipine (Nifedipine Er 30 Mg Tab.Er.24) 60 mg PO BEDTIME [facility]; Protocol Last Admin: 04/27/23 20:53 Dose: 60 mg Olanzapine (Olanzapine 10 Mg Tablet) 10 mg PO BEDTIME [facility] Last Admin: 04/27/23 20:54 Dose: 10 mg Quetiapine Fumarate (Quetiapine Fumarate 50 Mg Tablet) 50 mg PO Q2H PRN PRN Reason: anxiety/restlessness Last Admin: 04/27/23 10:59 Dose: 50 mg Quetiapine Fumarate (Quetiapine Fumarate 50 Mg Tablet) 50 mg PO BID@0830,1430 [facility] Last Admin: 04/28/23 09:17 Dose: 50 mg Quetiapine Fumarate (Quetiapine Fumarate 50 Mg Tablet) 150 mg PO BEDTIME [facility] Last Admin: 04/27/23 20:54 Dose: 150 mg Allergies Allergies Allergy/AdvReac Type Severity Reaction Status Date / Time haloperidol Allergy Severe Nausea and Verified 03/17/23 14:24 Vomiting lithium Allergy Severe Nausea and Verified 03/17/23 14:24 Vomiting latex Allergy Mild Itching Verified 03/17/23 14:24 Assessment & Plan Assessment & Plan (1) Bipolar 1 disorder, depressed, severe: Status: Acute Code(s): F31.4 - Bipolar disorder, current episode depressed, severe, without psychotic features (2) Dermatophytosis: Status: Acute Code(s): B35.9 - Dermatophytosis, unspecified Assessment and Plan: Right hip area lesion improving on topical clotrimazole. 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, damage, and dysfunction: Status: Acute Code(s): G93.9 - Disorder of brain, unspecified; F07.9 - Unspecified personality and behavioral disorder due to known physiological condition (6) Seizure disorder, complex partial: Status: Acute Code(s): G40.209 - Localization-related (focal) (partial) symptomatic epilepsy and epileptic syndromes with complex partial seizures, not intractable, without status epilepticus Plan Patient is a 57 year old woman with hx of bipolar d/o who presented to ER via ambulance and section 12 from [employer] police secondary to erratic behavior, initially being unresponsive then throwing herself to the group, hitting, biting and choking herself. Plan: 3 day 15 minute safety checks Continue home medications Hospitalist consult for uncontrolled diabetes and low sodium Surgery consult for directions of wound care of toes 03/27:Patient was seen by surgical today for her toes. Surgical provider stated, Wounds are healing appropriately; sutures removed and clean dressings applied. Continue daily dressing changes with 3x3 or 2x2 gauze at base of 4th toes followed by 3 inch sarah wrap. She can follow up in my office in one month. She is also being followed by hospitalist for hyponatremia, hyperglycemia, and hypertension. Hospitalist reports they will change hydralazine to 50 mg p.o. t.i.d.. If BP remains elevated will add losartan 50 mg q.d. They will continue to follow for now. 03/28: Continue current plans and regimen 03/29: Continue current plans and regimen. Addition to right foot wound care 03/30: Continue current regimen and plans. Increased trazodone to 200 mg. Placed surgical consult for right foot evaluation 03/31: Pt guarded and irritable today. Retracted 3 day with rn social work, then signed another one; She refused to meet with T/W. Patient stated, I'm fine. I don't like it here. I want to be left alone . Pt denies SI/HI/VH/AH at this time. Pt was seen for surgical consult; note stated; Right foot noted to have increased discharge. Silver alginate applied yesterday. Left foot healed. Continued daily dressing changed with silver alginate, DSD to right foot. Contine current tx plan. 04/01: Pt continues guarded and irritable today. Patient stated, I hope I get into the rehab. I'm going to keep taking my meds. I just don't want to be here anymore . Pt has been attending groups but keeping to self. continue tx plan. 04/02: Pt presents guarded and irritable today. Patient stated, I'm doing alright. I'm looking forward to leaving here. I want to learn how to do my dressing on my foot . RN was notified to educate patient on this topic. Pt has been attending groups but keeping to self. 3 day is due tomorrow. 04/03: Pt continues irritable today. Reports she does not want to be here but understands it is not medically castro to be discharged d/t her being unable to care for wound. Concerned about belongings; her belongings from senior living were brought to hospital; now feels less anxious. Retracted 3 day. Social work will continue to look for placement. OT to do MOCA. Continue current tx plan. 04/05: No changes to current plan 04/06: Observed attending groups. When OT attempted to conduct MOCA; pt was unable to tolerate questioning and starting rocking back and forth stating I don't know ; when she was instructed to take a deep breath, she was then able to answer some questions. T/W and met with patient in the afternoon to assess patient's insight into medical/psychiatric issues; pt was able to express that she would be interested in going to an assisted living housing. Pt stated, I hate people here, I just want to leave. I know I have no where to go . Continue current tx plan. Hospitalist consult placed for continued HTN, elevated blood sugars and possible toe infection. 04/07: Patient presents irritable and guarded during 1:1. Patient reports she is hoping to get into the program. I don't like the idea of them getting all my money but it's better than being homeless . Pt was seen by hospitalist; see note; medication were adjusted. pt was seen by surgery today for foot; Recommend continuing the current dressing changes with silver alginate and DSD. Health care proxy to be contacted tomorrow; possibly will invoke d/t patients mental status and medical condition. 04/08: Patient unable to tolerate long conversations, she becomes frustrated, begins to make a whining noise and starts to hit herself in the head and pull her hair. Patient had a interview with admission director of [facility]; per rn social work, pt became easily frustrated, could not recall answers to basic questions and started hitting herself. [facility] denied her admission. foundry worker general reported informing patient of denial; when T/W discussed it with her later in the afternoon, pt did not recall the conversation with rn social work and stated she did not know she was not accepted at [facility]. Pt stated, I want to leave. I don't care if I go to the streets and . Started Trileptal 150mg PO BID; risks/benefits discussed. Decreased Keppra to 500mg PO BID. Hospitalist ordered CT scan angio abdomen; pt aware; ordered Ativan 2mg PO once for procedure. T/W called Health care proxy, number not in service. 04/09: T/W asked if the treatment team could speak to her cousin Randa who is her health care proxy; pt gave verbal permission. Section 7 and 8 to be filed d/t patient safety and inability to care for herself. T/W spoke to Randa; Randa stated she is aware of being [facility] health care proxy and does not have an issue if the health care proxy needed to be invoked. She expressed concern regarding [facility] ability to care for herself and stated she has been declining cognitively over the past few years. Randa stated she would be willing to testify her concerns in court. MRI ordered d/t worsening behavior and cognition. 04/10: Trial up till added for control of seizures and mood stability trying decrease olanzapine start Vraylar to help with significantly elevated blood sugar patient with Section 7 filed will re-evaluate 04/[address] Candelario wondered if inc trileptal and then decreasing keppra would be next step - seems less irritable, though maybe depressed- after that could consider taper off olanzapine and move to vraylar. as per dr candelario 04/13: Trileptal added for control of mood labilit taper keppera? nodule on ct follow with medicine 04/14: lower keppra trileptal 300 bid cont to dec olanzapine inc vraylar 3 mg daily 04/16: Pt overwhelmed anxious poor sleep was cooperative recent medical testing cking adrenal system and for tx resistant htn 04/17: Patient is depressed irritable in mixed state periods of regression was able to complete 1st part of Gray then did not completed with OT. The patient has difficulty with sleep restlessness in spite of lorazepam and trazodone and olanzapine at bedtime. Stop trazodone change Ativan to clonazepam increase Zyprexa back to 20 mg will to all at bedtime monitor had a poor response to regarding diabetes. Questionable allergy to Vraylar could consider Geodon if diabetes worsens discharge planning patient did allow referral to [facility]. Continue oxcarbazepine 04/18: Continue treatment plan. 04/19: FU on final results of foot Xray. Continue treatment plan. 04/20: Patient did verbally submit a 3 day after conversation. A week previously I we did halt a section 7 process as the patient did sign a conditional voluntary which at the time she said was of her own free will and was accepting treatment and seem to understand that time that she needed further treatment and we would help her with the discharge plan. We have considered invoking healthcare proxy at times patient has generally been cooperative with medical treatment she understands she has hypertension diabetes understood brain MRI was to look for any evidence of brain injury or process that might be interfering. Patient does have a significantly impaired frustration tolerance she is depressed and irritable had not been taking care of herself over the past few months prior to admission leading to medical difficulties. At time she seems to understand this at other times not. She has not been cooperative with more intensive cognitive testing she does have some word-finding problems at times.Continue diabetes and antihypertensive treatment.Evaluate for commitment in treatment plan 04/21: Patient remains dysphoric in irritable poor sleep somewhat Behavioral old his disrupted is takes medication and treatment with structure but impulsive low frustration tolerance poor concentration regarding being a being able to manage this herself at this time. Three day notice continues evaluate need for commitment and treatment plan also evaluate consideration of invoking healthcare proxy which would be S some diff if he is commitment approved.Reviewed repeatedly with hospitalist service they did not feel patient required medical transfer and given hyponatremia 118 with presumed gradual change no major change in level of alertness that they felt could be treated on the psychiatric unit. Urea STARTED SALT TABLETS STARTED. Monitor cognition and alertness monitor response to to treatment hospitalist service following nephrology consult. Will start low-dose Depakote and clonidine see if this is helpful for mood and sleep. 04/22: Has predilection for excess ADH Hyponatremia due to excess ADH Euvolemic; Urine studies reviewed Had been on Trilpetal- discontinued Mentation at baseline Started on NaCl tablets & PO Urea Serum sodium better No indication for hypertonic saline/ tolvaptan now C/W current supportive care for now Pt on 3 day lablle depressed difficulty at this time for self care impaired judgement yelling I want to go but not processing multiple issues presently going on hyponatremia depression mood instability started on depakote seroquel for mood stability depression urea sodium tabs for hyponatremia trileptal d/c nephrology consult reviewed on tx for ? ringworm second opinion ordered dr thomas follow sodium file for sec 7 04/23: Pt started thorazine 25 hs dep 250 tid file sec 7 tx plan 04/24: Patient agitated with significant insomnia irritability self harm injuries behavior intermittently. Difficult to engage in conversation hitting her head not listening Patient was seen by infectious disease continue antifungal Patient remains unstable agitated intermittently distraught has not responded to olanzapine change to Seroquel recommend mouth checks increase Depakote to 500 mg b.i.d. hyponatremia appears to have corrected 04/25: less agitated, not entirely cooperative with care. continue current mgmt. 04/26: less agitated. no sleep at all last night. change diet to regular in hopes of decreasing reactive dietary behaviors such as ice cream bingeing while on diabetic diet. elevated ammonia, T/C D/C of VPA. 04/27: Patient presents irritable today. Observed yelling at times d/t not being able to get a hold of her cousin via phone; low distress tolerance. Pt began banging head and screaming at staff to leave her alone. Ammonia 37. DC depakote. Start Tegretol 100mg PO BID; monitor sodium and BP. 04/28: Patient continues to present irritable today. Observed yelling at staff d/t not wanting to take tegretol; when asked why, pt reports it had given her an upset stomach before and she refused to take it again. Pt continues with low distress tolerance; begins kicking in bed, whining, raising voice. She presents calmer today, however reports she feels lousy . DC tegretol. Increased Keppra back to 750mg PO BID; which was her home dose. T/W and RN attempted to explain medications to patient, patient began yelling and stated, I don't care! I don't want to know! . Patient educated on: diagnosis and medication risk/benefits Informed Consent: understands and further education needed Reason for continued inpatient stay Substantial Risk for: med/psych decompensation Time Spent With Patient Time: Total time managing care of this patient today _30___ minutes.
[2023-04-28 12:42] LABS: Glucose, Whole Blood 391 mg/dL (60-115)
[2023-04-28] MEDS: Losartan Potassium 50 MG TABLET 100 MG PO (12:50)
[2023-04-28 13:00] VITALS: BP 140/90; PULSE 102; O2SAT 96
[2023-04-28] MEDS: Acetaminophen 325 MG TABLET 650 MG PO (15:53)
[2023-04-28 18:00] VITALS: BP 147/63; PULSE 114; RESP 16; TEMP 36.8; O2SAT 97
[2023-04-28 18:01] LABS: Glucose, Whole Blood 172 mg/dL (60-115)
[2023-04-28 20:13] LABS: Glucose, Whole Blood 157 mg/dL (60-115)
[2023-04-28] MEDS: levETIRAcetam 250 MG TABLET 750 MG PO (20:41)
[2023-04-28] MEDS: clonazePAM 1 MG TABLET PO (20:42)
[2023-04-28] MEDS: NIFEdipine ER 30 MG TAB.ER.24 60 MG PO (20:43)
[2023-04-28] MEDS: QUEtiapine Fumarate 50 MG TABLET 150 MG PO (20:45)
[2023-04-28] MEDS: OLANZapine 10 MG TABLET PO (20:46)
[2023-04-29] MEDS: Acetaminophen 325 MG TABLET 650 MG PO ×2 (04:09→15:00)
[2023-04-29 07:33] VITALS: BP 186/84; PULSE 110; RESP 18; TEMP 36.4; O2SAT 95
[2023-04-29] MEDS: levETIRAcetam 250 MG TABLET 750 MG PO ×2 (08:01→20:29)
[2023-04-29] MEDS: hydrALAZINE HCl 50 MG TABLET PO ×3 (08:01→20:28)
[2023-04-29] MEDS: QUEtiapine Fumarate 50 MG TABLET PO ×4 (08:02→23:19)
[2023-04-29] MEDS: glipiZIDE 5 MG TABLET PO ×2 (08:02→17:56)
[2023-04-29] MEDS: Ferrous Sulfate 324 MG TABLET.DR PO (08:02)
[2023-04-29 08:18] LABS: Glucose, Whole Blood 336 mg/dL (60-115)
[2023-04-29 09:06] LABS: Creatinine Clr Calc Pharmacy 75.6; Estimated Glomerular Filt Rate > 60
[2023-04-29] MEDS: Insulin Glargine,Hum.rec.anlog 100 UNIT/ML 10 ML VIAL 28 UNIT SUBCUT (09:09)
[2023-04-29] MEDS: Insulin Lispro 100 UNIT/ML 3 ML VIAL SUBCUT ×4 (09:09→20:24)
--- NOTE | 2023-04-29 10:28 | PC.NURSE ---
PT completed the [place] Cognitive Assessment with senior underwriter as requested by provider. PT scored 20 out of 30 points showing mild cognitive impairment. PT refused to copy a cube and draw a clock during the visuospatial section. PT also declined to complete the second part of language as well as the delayed recall. At times she became irritable, became teary eyed and needed redirection in order to complete assessment.
[2023-04-29 11:54] VITALS: BP 137/65; PULSE 107
[2023-04-29] MEDS: Losartan Potassium 50 MG TABLET 100 MG PO (11:56)
[2023-04-29 12:43] LABS: Glucose, Whole Blood 161 mg/dL (60-115)
[2023-04-29 14:36] VITALS: BP 147/72; PULSE 100
--- NOTE | 2023-04-29 15:25 | PM.PNGS ---
Subjective Subjective Date of Service: 04/29/23 Interval history: Patient reports pain on dorsal surface of foot. Denies any pain in the toes. Physical Exam Vital Signs: Vital Signs: Last Vital Signs Temp 97.6 F 04/29/23 07:33 Pulse 100 04/29/23 14:36 Resp 18 04/29/23 07:33 BP 147/72 H 04/29/23 14:36 Pulse Ox 95 04/29/23 07:33 O2 Del Method Room Air 04/29/23 07:33 BMI result Body Mass Index 24.1 Const: General: comfortable Nutritional Appearance: well nourished Orientation/consciousness: patient oriented x3 Limitations: no limitations Resp: Effort & Inspection: normal respiratory effort Neuro: General: patient oriented x3 Extrem: Other: right foot dressings changed. Continued improvement in the remaining wound at the base of the 4th toe right foot. Blister at the webspace between 1st and 2nd toe is stable. Number alginate placed over both open wounds. Was then covered with dry sterile dressings and Jorge A. Objective Data Active Medications Acetaminophen (Acetaminophen 325 Mg Tablet) 650 mg PO Q6H PRN PRN Reason: Headache/Pain Mild Scale (1-3) Last Admin: 04/29/23 15:00 Dose: 650 mg Documented By: TERESO Al Hydroxide/Mg Hydroxide (Magnesium Hydrox/Alum Hydrox 30 Ml Oral.Susp) 30 ml PO Q6H PRN PRN Reason: Heartburn/Nausea Last Admin: 04/23/23 07:17 Dose: 30 ml Documented By: JEREMY Clonazepam (Clonazepam 1 Mg Tablet) 1 mg PO BEDTIME [facility] Last Admin: 04/28/23 20:42 Dose: 1 mg Documented By: FE Clonazepam (Clonazepam 1 Mg Tablet) 1 mg PO BEDTIME PRN PRN Reason: Insomnia Last Admin: 04/26/23 02:35 Dose: 1 mg Documented By: EMMA Clotrimazole (Clotrimazole 1 % Cream 15 Gm Tube) 1 appl TOPICAL BID [facility]; Protocol Last Admin: 04/29/23 08:03 Dose: Not Given Documented By: TERESO Non-Admin Reason: Patient Refused Ferrous Sulfate (Ferrous Sulfate 324 Mg Tablet.) 324 mg PO DAILY [facility] Last Admin: 04/29/23 08:02 Dose: 324 mg Documented By: TERESO Glipizide (Glipizide 5 Mg Tablet) 5 mg PO BIDWM [facility] Last Admin: 04/29/23 08:02 Dose: 5 mg Documented By: TERESO Hydralazine HCl (Hydralazine Hcl 50 Mg Tablet) 50 mg PO TID [facility]; Protocol Last Admin: 04/29/23 14:56 Dose: 50 mg Documented By: TERESO Hydroxyzine HCl (Hydroxyzine Hcl 25 Mg Tablet) 25 mg PO Q6H PRN PRN Reason: Anxiety Last Admin: 04/26/23 22:41 Dose: 25 mg Documented By: MADHU Insulin Glargine (Insulin Glargine,Hum.Rec.Anlog 100 Unit/Ml 10 Ml Vial) 28 unit SUBCUT DAILY [facility] Last Admin: 04/29/23 09:09 Dose: 28 unit Documented By: TERESO Insulin Human Lispro (Insulin Lispro 100 Unit/Ml 3 Ml Vial) 0 unit SUBCUT QIDACHS [facility]; Protocol Last Admin: 04/29/23 12:50 Dose: 4 unit Documented By: TERESO Levetiracetam (Levetiracetam 250 Mg Tablet) 750 mg PO BID [facility] Last Admin: 04/29/23 08:01 Dose: 750 mg Documented By: TERESO Losartan Potassium (Losartan Potassium 50 Mg Tablet) 100 mg PO DAILY@1200 [facility]; Protocol Last Admin: 04/29/23 11:56 Dose: 100 mg Documented By: TERESO Magnesium Hydroxide (Milk Of Magnesia 30 Ml Oral.Susp) 30 ml PO DAILY PRN PRN Reason: Constipation Last Admin: 04/21/23 06:51 Dose: 30 ml Documented By: TWIN Metformin HCl (Metformin Hcl Er 500 Mg Tab.Er.24h) 1,000 mg PO BID [facility] Last Admin: 04/29/23 08:03 Dose: Not Given Documented By: TERESO Non-Admin Reason: Patient Refused Nicotine Polacrilex (Nicotine Polacrilex 2 Mg Gum) 4 mg BUCCAL Q2H PRN PRN Reason: Nicotine Cravings Nifedipine (Nifedipine Er 30 Mg Tab.Er.24) 60 mg PO BEDTIME [facility]; Protocol Last Admin: 04/28/23 20:43 Dose: 60 mg Documented By: FE Olanzapine (Olanzapine 10 Mg Tablet) 10 mg PO BEDTIME [facility] Last Admin: 04/28/23 20:46 Dose: 10 mg Documented By: FE Quetiapine Fumarate (Quetiapine Fumarate 50 Mg Tablet) 50 mg PO Q2H PRN PRN Reason: anxiety/restlessness Last Admin: 04/29/23 11:57 Dose: 50 mg Documented By: TERESO Quetiapine Fumarate (Quetiapine Fumarate 50 Mg Tablet) 50 mg PO BID@0830,1430 [facility] Last Admin: 04/29/23 14:56 Dose: 50 mg Documented By: TERESO Quetiapine Fumarate (Quetiapine Fumarate 50 Mg Tablet) 150 mg PO BEDTIME [facility] Last Admin: 04/28/23 20:45 Dose: 150 mg Documented By: FE Labs 04/24/23 08:50 04/29/23 08:34 Labs: Laboratory Results - last 24 hr 04/28/23 04/28/23 04/29/23 17:56 20:09 07:48 Estim Creat Clear Calc Estimated GFR POC Glucose 172 H 157 H 336 H 04/29/23 04/29/23 08:34 12:38 Estim Creat Clear Calc 75.6 Estimated GFR > 60 POC Glucose 161 H Procedures Date of Service Date of Service: 04/29/23 Progress Note: A&P Assessment and plan (1) Osteomyelitis of fourth toe of right foot: Status: Resolved Plan Continued improvement in the right 4th toe amputation site. Blister essentially unchanged. Continue protective dressing over both wounds with silver alginate, 2 x 2 gauze and Jorge A. Follow-up in office approximately 1 week after discharge. Time Spent With Patient Time: Total time managing care of this patient today ____ minutes. Quality Stroke Does the patient have a stroke diagnosis?: No VTE Prior VTE?: No VTE Risk Level:: Surgical - low VTE Device Contraindication: Treatment Not Indicated VTE Drug Contraindication: Treatment Not Indicated
--- NOTE | 2023-04-29 15:37 | HO.PSYCHPN ---
Subjective Subjective Date of Service: 04/29/23 Reason For Visit: Disorganized and dangerous behavior Subjective Notes: Section 7 Interim History: Reviewed in team and . Patient presents calmer today, reports feeling good and sleeping okay. Pt continues to have low distress tolerance. Patient is aware of court tomorrow. Patient asked to speak to T/W and stated, I miss my mother. She a couple years ago and I didn't get to say goodbye. I don't talk to my sister or father because of it . Patient denies SI/HI/VH/AH at this time. Medication Compliance: Yes Side effects from medications: No Attending Groups: Intermittent Review of Systems Review of Systems unremarkable Constitutional: Reports as per HPI Eyes: Reports as per HPI Reports as per HPI Cardiovascular: Reports as per HPI Respiratory: Reports as per HPI Gastrointestinal: Reports as per HPI Genitourinary: Reports as per HPI Musculoskeletal: Reports as per HPI Skin/Breast: Reports as per HPI Reports as per HPI Psychiatric: Reports as per HPI Endocrine: Reports as per HPI Hematologic/Lymphatic: Reports as per HPI Allergic/Immunologic: Reports as per HPI Mental Status Exam Mental Status Exam Narrative: Patient Appearance: Disheveled Patient Orientation: Person, Place and Time Level of Consciousness: Awake Patient Behavior: Anxious, Distractible and Impulsive Mood Description: Depressed, Anxious, Labile and Apprehensive Affect Description: Anxious and Apprehensive Speech Pattern: Mumbled Memory Description: Working Impaired Delusions: Not Present Thought Content: positive for Reading, positive for Obsessional Thoughts, negative for Suicidal Ideation or negative for Homicidal Ideation Depressive Symptoms: Increased Anxiety, Insomnia, Increased Irritability and Difficulty Concentrating Abnormal Motor Activity Signs and Symptoms: Agitation Judgement: Poor Behavior Comments: Oral facial dyskinesia noted ongoing Diagnostics Vital Signs (24Hr): Vital Signs - 24 hr 04/28/23 18:00 04/29/23 07:33 04/29/23 11:54 Temperature 98.2 F 97.6 F Pulse Rate 114 H 110 H 107 H Respiratory Rate 16 18 Blood Pressure 147/63 H 186/84 H 137/65 Pulse Oximetry 97 95 Oxygen Delivery Method Room Air Room Air 04/29/23 14:36 Temperature Pulse Rate 100 Respiratory Rate Blood Pressure 147/72 H Pulse Oximetry Oxygen Delivery Method BMI result Body Mass Index 24.1 Labs 04/24/23 08:50 04/29/23 08:34 Labs: Laboratory Results - last 48 hr 04/27/23 04/27/23 04/28/23 17:55 20:47 08:09 Creatinine Estim Creat Clear Calc Estimated GFR POC Glucose 172 H 93 313 H 04/28/23 04/28/23 04/28/23 12:37 17:56 20:09 Creatinine Estim Creat Clear Calc Estimated GFR POC Glucose 391 H* 172 H 157 H 04/29/23 04/29/23 04/29/23 07:48 08:34 12:38 Creatinine 0.70 Estim Creat Clear Calc 75.6 Estimated GFR > 60 POC Glucose 336 H 161 H Imaging Radiology Impressions: ITS Impressions Renal Ultrasound 04/07/23 07:47 IMPRESSION: Increased peak systolic velocity in the mid left renal artery suggestive renal artery stenosis. Follow-up imaging recommended, preferably CTA if normal renal function. Renal Ultrasound 04/07/23 07:47 IMPRESSION: Increased peak systolic velocity in the mid left renal artery suggestive renal artery stenosis. Follow-up imaging recommended, preferably CTA if normal renal function. Abdomen CTA 04/08/23 16:05 IMPRESSION: Atherosclerotic disease. No significant renal artery stenosis. Calcified plaque at both renal artery origins. Tortuous left renal artery and question mild left mid renal artery stenosis. Several indeterminate left renal lesions as described above. Follow-up dedicated renal imaging with either CT or MRI with and without contrast recommended. 1.5 x 2 cm right adrenal lesion. Given hypertension, endocrinology follow-up and additional imaging may be helpful. This could be done at the same time as renal imaging if clinically indicated. Fleischner guidelines were followed. Orbit X-Ray 04/09/23 15:37 IMPRESSION: No radiopaque foreign body seen in the skull. No radiopaque foreign body seen in the chest. The lungs are clear. Brain MRI 04/10/23 13:15 IMPRESSION: No acute intracranial abnormality. 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 Background changes of mild chronic microangiopathy. Abdomen/Pelvis CT 04/14/23 18:31 IMPRESSION: 1. Benign right adrenal adenoma. 2. Benign Bosniak class I and class II left renal cysts which need no further follow-up. 3. Other incidental findings as described above including grade 1 anterolisthesis of L4 upon L5 and marked calcific and noncalcific atherosclerotic changes in the aorta and iliofemoral vessels with possible left common iliac stenosis. Fleischner guidelines were followed. Foot X-Ray 04/18/23 16:28 IMPRESSION: No acute fracture or dislocation. Interval amputation of the fourth toe. Erosive destructive changes of the fourth metatarsal head and periosteal reaction suggestive of osteomyelitis. Periosteal reaction of the shaft of the third metatarsal bone also questionable for osteomyelitis. Question osteomyelitis and pathologic fracture of the base of the proximal phalanx of the third toe. Erosive changes of the distal tuft of the great toe questionable for osteomyelitis as well. Medications Medications Current Medications Acetaminophen (Acetaminophen 325 Mg Tablet) 650 mg PO Q6H PRN PRN Reason: Headache/Pain Mild Scale (1-3) Last Admin: 04/29/23 15:00 Dose: 650 mg Al Hydroxide/Mg Hydroxide (Magnesium Hydrox/Alum Hydrox 30 Ml Oral.Susp) 30 ml PO Q6H PRN PRN Reason: Heartburn/Nausea Last Admin: 04/23/23 07:17 Dose: 30 ml Clonazepam (Clonazepam 1 Mg Tablet) 1 mg PO BEDTIME [facility] Last Admin: 04/28/23 20:42 Dose: 1 mg Clonazepam (Clonazepam 1 Mg Tablet) 1 mg PO BEDTIME PRN PRN Reason: Insomnia Last Admin: 04/26/23 02:35 Dose: 1 mg Clotrimazole (Clotrimazole 1 % Cream 15 Gm Tube) 1 appl TOPICAL BID [facility]; Protocol Last Admin: 04/29/23 08:03 Dose: Not Given Ferrous Sulfate (Ferrous Sulfate 324 Mg Tablet.) 324 mg PO DAILY [facility] Last Admin: 04/29/23 08:02 Dose: 324 mg Glipizide (Glipizide 5 Mg Tablet) 5 mg PO BIDWM [facility] Last Admin: 04/29/23 08:02 Dose: 5 mg Hydralazine HCl (Hydralazine Hcl 50 Mg Tablet) 50 mg PO TID [facility]; Protocol Last Admin: 04/29/23 14:56 Dose: 50 mg Hydroxyzine HCl (Hydroxyzine Hcl 25 Mg Tablet) 25 mg PO Q6H PRN PRN Reason: Anxiety Last Admin: 04/26/23 22:41 Dose: 25 mg Insulin Glargine (Insulin Glargine,Hum.Rec.Anlog 100 Unit/Ml 10 Ml Vial) 28 unit SUBCUT DAILY [facility] Last Admin: 04/29/23 09:09 Dose: 28 unit Insulin Human Lispro (Insulin Lispro 100 Unit/Ml 3 Ml Vial) 0 unit SUBCUT QIDACHS [facility]; Protocol Last Admin: 04/29/23 12:50 Dose: 4 unit Levetiracetam (Levetiracetam 250 Mg Tablet) 750 mg PO BID [facility] Last Admin: 04/29/23 08:01 Dose: 750 mg Losartan Potassium (Losartan Potassium 50 Mg Tablet) 100 mg PO DAILY@1200 [facility]; Protocol Last Admin: 04/29/23 11:56 Dose: 100 mg Magnesium Hydroxide (Milk Of Magnesia 30 Ml Oral.Susp) 30 ml PO DAILY PRN PRN Reason: Constipation Last Admin: 04/21/23 06:51 Dose: 30 ml Metformin HCl (Metformin Hcl Er 500 Mg Tab.Er.24h) 1,000 mg PO BID [facility] Last Admin: 04/29/23 08:03 Dose: Not Given Nicotine Polacrilex (Nicotine Polacrilex 2 Mg Gum) 4 mg BUCCAL Q2H PRN PRN Reason: Nicotine Cravings Nifedipine (Nifedipine Er 30 Mg Tab.Er.24) 60 mg PO BEDTIME [facility]; Protocol Last Admin: 04/28/23 20:43 Dose: 60 mg Olanzapine (Olanzapine 10 Mg Tablet) 10 mg PO BEDTIME [facility] Last Admin: 04/28/23 20:46 Dose: 10 mg Quetiapine Fumarate (Quetiapine Fumarate 50 Mg Tablet) 50 mg PO Q2H PRN PRN Reason: anxiety/restlessness Last Admin: 04/29/23 11:57 Dose: 50 mg Quetiapine Fumarate (Quetiapine Fumarate 50 Mg Tablet) 50 mg PO BID@0830,1430 [facility] Last Admin: 04/29/23 14:56 Dose: 50 mg Quetiapine Fumarate (Quetiapine Fumarate 50 Mg Tablet) 150 mg PO BEDTIME [facility] Last Admin: 04/28/23 20:45 Dose: 150 mg Allergies Allergies Allergy/AdvReac Type Severity Reaction Status Date / Time haloperidol Allergy Severe Nausea and Verified 03/17/23 14:24 Vomiting lithium Allergy Severe Nausea and Verified 03/17/23 14:24 Vomiting latex Allergy Mild Itching Verified 03/17/23 14:24 Assessment & Plan Assessment & Plan (1) Bipolar 1 disorder, depressed, severe: Status: Acute Code(s): F31.4 - Bipolar disorder, current episode depressed, severe, without psychotic features (2) Osteomyelitis of fourth toe of right foot: Status: Resolved Code(s): M86.9 - Osteomyelitis, unspecified (3) Dermatophytosis: Status: Acute Code(s): B35.9 - Dermatophytosis, unspecified Assessment and Plan: Right hip area lesion improving on topical clotrimazole. Area contagious 48 hours after topical,24 hours from now (4) Insulin dependent type 2 diabetes mellitus: Status: Acute Code(s): E11.9 - Type 2 diabetes mellitus without complications; Z79.4 - shelter (current) use of insulin Plan Patient is a 57 year old woman with hx of bipolar d/o who presented to ER via ambulance and section 12 from [place] [employer] secondary to erratic behavior, initially being unresponsive then throwing herself to the group, hitting, biting and choking herself. Plan: 3 day 15 minute safety checks Continue home medications Hospitalist consult for uncontrolled diabetes and low sodium Surgery consult for directions of wound care of toes 03/27:Patient was seen by surgical today for her toes. Surgical provider stated, Wounds are healing appropriately; sutures removed and clean dressings applied. Continue daily dressing changes with 3x3 or 2x2 gauze at base of 4th toes followed by 3 inch jorge a wrap. She can follow up in my office in one month. She is also being followed by hospitalist for hyponatremia, hyperglycemia, and hypertension. Hospitalist reports they will change hydralazine to 50 mg p.o. t.i.d.. If BP remains elevated will add losartan 50 mg q.d. They will continue to follow for now. 03/28: Continue current plans and regimen 03/29: Continue current plans and regimen. Addition to right foot wound care 03/30: Continue current regimen and plans. Increased trazodone to 200 mg. Placed surgical consult for right foot evaluation 03/31: Pt guarded and irritable today. Retracted 3 day with director social welfare, then signed another one; She refused to meet with T/W. Patient stated, I'm fine. I don't like it here. I want to be left alone . Pt denies SI/HI/VH/AH at this time. Pt was seen for surgical consult; note stated; Right foot noted to have increased discharge. Silver alginate applied yesterday. Left foot healed. Continued daily dressing changed with silver alginate, DSD to right foot. Contine current tx plan. 04/01: Pt continues guarded and irritable today. Patient stated, I hope I get into the rehab. I'm going to keep taking my meds. I just don't want to be here anymore . Pt has been attending groups but keeping to self. continue tx plan. 04/02: Pt presents guarded and irritable today. Patient stated, I'm doing alright. I'm looking forward to leaving here. I want to learn how to do my dressing on my foot . RN was notified to educate patient on this topic. Pt has been attending groups but keeping to self. 3 day is due tomorrow. 04/03: Pt continues irritable today. Reports she does not want to be here but understands it is not medically castro to be discharged d/t her being unable to care for wound. Concerned about belongings; her belongings [facility] were brought to hospital; now feels less anxious. Retracted 3 day. Social work will continue to look for placement. OT to do MOCA. Continue current tx plan. 04/05: No changes to current plan 04/06: Observed attending groups. When OT attempted to conduct MOCA; pt was unable to tolerate questioning and starting rocking back and forth stating I don't know ; when she was instructed to take a deep breath, she was then able to answer some questions. T/W and met with patient in the afternoon to assess patient's insight into medical/psychiatric issues; pt was able to express that she would be interested in going to an assisted living housing. Pt stated, I hate people here, I just want to leave. I know I have no where to go . Continue current tx plan. Hospitalist consult placed for continued HTN, elevated blood sugars and possible toe infection. 04/07: Patient presents irritable and guarded during 1:1. Patient reports she is hoping to get into the program. I don't like the idea of them getting all my money but it's better than being homeless . Pt was seen by hospitalist; see note; medication were adjusted. pt was seen by surgery today for foot; Recommend continuing the current dressing changes with silver alginate and DSD. Health care proxy to be contacted tomorrow; possibly will invoke d/t patients mental status and medical condition. 04/08: Patient unable to tolerate long conversations, she becomes frustrated, begins to make a whining noise and starts to hit herself in the head and pull her hair. Patient had a interview with admission director of [facility]; per director social welfare, pt became easily frustrated, could not recall answers to basic questions and started hitting herself. [facility] denied her admission. fire crew worker reported informing patient of denial; when T/W discussed it with her later in the afternoon, pt did not recall the conversation with director social welfare and stated she did not know she was not accepted at [facility]. Pt stated, I want to leave. I don't care if I go to the streets and . Started Trileptal 150mg PO BID; risks/benefits discussed. Decreased Keppra to 500mg PO BID. Hospitalist ordered CT scan angio abdomen; pt aware; ordered Ativan 2mg PO once for procedure. T/W called Health care proxy, number not in service. 04/09: T/W asked if the treatment team could speak to her cousin Randa who is her health care proxy; pt gave verbal permission. Section 7 and 8 to be filed d/t patient safety and inability to care for herself. T/W spoke to Randa; Randa stated she is aware of being [facility] health care proxy and does not have an issue if the health care proxy needed to be invoked. She expressed concern regarding [facility] ability to care for herself and stated she has been declining cognitively over the past few years. Randa stated she would be willing to testify her concerns in court. MRI ordered d/t worsening behavior and cognition. 04/10: Trial up till added for control of seizures and mood stability trying decrease olanzapine start Vraylar to help with significantly elevated blood sugar patient with Section 7 filed will re-evaluate 04/[address] Candelario wondered if inc trileptal and then decreasing keppra would be next step - seems less irritable, though maybe depressed- after that could consider taper off olanzapine and move to vraylar. as per dr candelario 04/13: Trileptal added for control of mood labilit taper keppera? nodule on ct follow with medicine 04/14: lower keppra trileptal 300 bid cont to dec olanzapine inc vraylar 3 mg daily 04/16: Pt overwhelmed anxious poor sleep was cooperative recent medical testing cking adrenal system and for tx resistant htn 04/17: Patient is depressed irritable in mixed state periods of regression was able to complete 1st part of [place] then did not completed with OT. The patient has difficulty with sleep restlessness in spite of lorazepam and trazodone and olanzapine at bedtime. Stop trazodone change Ativan to clonazepam increase Zyprexa back to 20 mg will to all at bedtime monitor had a poor response to regarding diabetes. Questionable allergy to Vraylar could consider Geodon if diabetes worsens discharge planning patient did allow referral to [facility]. Continue oxcarbazepine 04/18: Continue treatment plan. 04/19: FU on final results of foot Xray. Continue treatment plan. 04/20: Patient did verbally submit a 3 day after conversation. A week previously I we did halt a section 7 process as the patient did sign a conditional voluntary which at the time she said was of her own free will and was accepting treatment and seem to understand that time that she needed further treatment and we would help her with the discharge plan. We have considered invoking healthcare proxy at times patient has generally been cooperative with medical treatment she understands she has hypertension diabetes understood brain MRI was to look for any evidence of brain injury or process that might be interfering. Patient does have a significantly impaired frustration tolerance she is depressed and irritable had not been taking care of herself over the past few months prior to admission leading to medical difficulties. At time she seems to understand this at other times not. She has not been cooperative with more intensive cognitive testing she does have some word-finding problems at times.Continue diabetes and antihypertensive treatment.Evaluate for commitment in treatment plan 04/21: Patient remains dysphoric in irritable poor sleep somewhat Behavioral old his disrupted is takes medication and treatment with structure but impulsive low frustration tolerance poor concentration regarding being a being able to manage this herself at this time. Three day notice continues evaluate need for commitment and treatment plan also evaluate consideration of invoking healthcare proxy which would be S some diff if he is commitment approved.Reviewed repeatedly with hospitalist service they did not feel patient required medical transfer and given hyponatremia 118 with presumed gradual change no major change in level of alertness that they felt could be treated on the psychiatric unit. Urea STARTED SALT TABLETS STARTED. Monitor cognition and alertness monitor response to to treatment hospitalist service following nephrology consult. Will start low-dose Depakote and clonidine see if this is helpful for mood and sleep. 04/22: Has predilection for excess ADH Hyponatremia due to excess ADH Euvolemic; Urine studies reviewed Had been on Trilpetal- discontinued Mentation at baseline Started on NaCl tablets & PO Urea Serum sodium better No indication for hypertonic saline/ tolvaptan now C/W current supportive care for now Pt on 3 day lablle depressed difficulty at this time for self care impaired judgement yelling I want to go but not processing multiple issues presently going on hyponatremia depression mood instability started on depakote seroquel for mood stability depression urea sodium tabs for hyponatremia trileptal d/c nephrology consult reviewed on tx for ? ringworm second opinion ordered dr thomas follow sodium file for sec 7 04/23: Pt started thorazine 25 hs dep 250 tid file sec 7 tx plan 04/24: Patient agitated with significant insomnia irritability self harm injuries behavior intermittently. Difficult to engage in conversation hitting her head not listening Patient was seen by infectious disease continue antifungal Patient remains unstable agitated intermittently distraught has not responded to olanzapine change to Seroquel recommend mouth checks increase Depakote to 500 mg b.i.d. hyponatremia appears to have corrected 04/25: less agitated, not entirely cooperative with care. continue current mgmt. 04/26: less agitated. no sleep at all last night. change diet to regular in hopes of decreasing reactive dietary behaviors such as ice cream bingeing while on diabetic diet. elevated ammonia, T/C D/C of VPA. 04/27: Patient presents irritable today. Observed yelling at times d/t not being able to get a hold of her cousin via phone; low distress tolerance. Pt began banging head and screaming at staff to leave her alone. Ammonia 37. DC depakote. Start Tegretol 100mg PO BID; monitor sodium and BP. 04/28: Patient continues to present irritable today. Observed yelling at staff d/t not wanting to take tegretol; when asked why, pt reports it had given her an upset stomach before and she refused to take it again. Pt continues with low distress tolerance; begins kicking in bed, whining, raising voice. She presents calmer today, however reports she feels lousy . DC tegretol. Increased Keppra back to 750mg PO BID; which was her home dose. T/W and RN attempted to explain medications to patient, patient began yelling and stated, I don't care! I don't want to know! . 04/29: Patient presents calmer today, reports feeling good and sleeping okay. Pt continues to have low distress tolerance. Patient is aware of court tomorrow. Patient asked to speak to T/W and stated, I miss my mother. She a couple years ago and I didn't get to say goodbye. I don't talk to my sister or father because of it . Patient denies SI/HI/VH/AH at this time. Pt was seen my surgical; Continued improvement in the right 4th toe amputation site. Blister essentially unchanged. Continue protective dressing over both wounds with silver alginate, 2 x 2 gauze and Jorge A. Follow-up in office approximately 1 week after discharge. Patient educated on: diagnosis, medication risk/benefits and therapeutic strategies Informed Consent: understands and further education needed Reason for continued inpatient stay Substantial Risk for: med/psych decompensation Time Spent With Patient Time: Total time managing care of this patient today _30___ minutes.
[2023-04-29 17:51] LABS: Glucose, Whole Blood 463 mg/dL (60-115)
[2023-04-29 18:00] VITALS: BP 169/74; PULSE 112; TEMP 36.6; O2SAT 94
--- NOTE | 2023-04-29 18:07 | PM.EVENT ---
Event Note Date of Service: 04/29/23 Event Note: Patient continues to have uncontrolled diabetes with last blood glucose reading of 463. Will give four units Lantus right now, and increase daily Lantus to [address] on sliding scale insulin. Will continue to follow to monitor glucose response. Time Spent With Patient Time: Total time managing care of this patient today ____ minutes.
[2023-04-29] MEDS: Insulin Glargine,Hum.rec.anlog 100 UNIT/ML 10 ML VIAL SUBCUT (19:04)
[2023-04-29 20:02] LABS: Glucose, Whole Blood 329 mg/dL (60-115)
[2023-04-29] MEDS: OLANZapine 10 MG TABLET PO (20:26)
[2023-04-29] MEDS: QUEtiapine Fumarate 50 MG TABLET 150 MG PO (20:27)
[2023-04-29] MEDS: clonazePAM 1 MG TABLET PO ×2 (20:28→23:18)
[2023-04-29] MEDS: NIFEdipine ER 30 MG TAB.ER.24 60 MG PO (20:28)
[2023-04-30] MEDS: Acetaminophen 325 MG TABLET 650 MG PO (03:52)
[2023-04-30 07:00] VITALS: BMI 24.1
[2023-04-30 08:00] VITALS: BP 136/63; PULSE 93; TEMP 36.2; O2SAT 95
[2023-04-30] MEDS: glipiZIDE 5 MG TABLET PO (08:03)
[2023-04-30] MEDS: hydrALAZINE HCl 50 MG TABLET PO (08:03)
[2023-04-30] MEDS: Ferrous Sulfate 324 MG TABLET.DR PO (08:04)
[2023-04-30] MEDS: Insulin Lispro 100 UNIT/ML 3 ML VIAL SUBCUT (09:10)
[2023-04-30] MEDS: Insulin Glargine,Hum.rec.anlog 100 UNIT/ML 10 ML VIAL 32 UNIT SUBCUT (09:11)
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
[2023-04-30] MEDS: Losartan Potassium 50 MG TABLET 100 MG PO (12:32)
--- NOTE | 2023-04-30 15:16 | PM.PSYDC ---
DS: Providers Provider Date of Service: 04/30/23 <Denise Jacobson NP - Last Filed: 04/30/23 15:40> Date of admission: 03/25/23 14:54 <Denise Jacobson NP - Last Filed: 04/30/23 15:40> Date of discharge: 04/30/23 <Denise Jacobson NP - Last Filed: 04/30/23 15:40> Primary care physician: Unknown Physician <Denise Jacobson NP - Last Filed: 04/30/23 15:40> Admitting clinician: Denise Jacobson <Denise Jacobson NP - Last Filed: 04/30/23 15:40> Attending physician on admission: José Miguel Dallas <Denise Jacobson NP - Last Filed: 04/30/23 15:40> Consults: 03/25/23 19:35 Consult to Wound Care Routine Consulting Provider: [facility] Wound Care Management Reason for consultation: recommendations s/p amputation 03/26/23 11:26 Consult to Hospitalist Routine Comment: Consulting Provider: Hospitalist Reason For Exam: uncontrolled diabetes and low sodium 03/26/23 13:09 Consult to General Surgery Routine Consulting Provider: [facility] General Surgeons Reason for consultation: s/p surgery Dr Villanueva, ? infection r foot, ? need for suture removal 03/30/23 08:58 Consult to General Surgery Routine Consulting Provider: [facility] General Surgeons Reason for consultation: R foot surg. wound infection Has provider been notified: Yes 04/06/23 17:18 Consult to Hospitalist Routine Comment: Consulting Provider: Hospitalist Reason For Exam: cont.HTN & elev. bloodsugar;possible toe infection 04/06/23 18:46 Consult to General Surgery Routine Consulting Provider: [facility] General Surgeons Reason for consultation: right 4th toe amp site infected 04/21/23 13:41 Consult to Nephrology Routine Consulting Provider: Sergio Roy Reason for consultation: hyponatremia 04/22/23 12:41 Consult to Psychiatry Stat Consulting Provider: Rakesh Thomas Reason for consultation: second opinion Has provider been notified: No 04/23/23 09:55 Consult to Infectious Diseases Routine Consulting Provider: [facility] Infectious Disease Reason for consultation: ? confirm ringworm for protocal ? rec for osteomyelitis tx Has provider been notified: No <Denise Jacobson NP - Last Filed: 04/30/23 15:40> Attending physician on discharge: Rakesh Thomas <Denise Jacobson NP - Last Filed: 04/30/23 15:40> DS: Diagnosis Discharge Diagnosis (1) Bipolar 1 disorder, depressed, severe: Status: Acute <Denise Jacobson NP - Last Filed: 04/30/23 15:40> (2) Osteomyelitis of fourth toe of right foot: Status: Resolved <Denise Jacobson NP - Last Filed: 04/30/23 15:40> (3) Dermatophytosis: Status: Acute <Denise Jacobson NP - Last Filed: 04/30/23 15:40> (4) Insulin dependent type 2 diabetes mellitus: Status: Acute <Denise Jacobson NP - Last Filed: 04/30/23 15:40> DS: Medications Discharge Medications Home Medications: Home Medications Medication Instructions Recorded Confirmed insulin lispro 100 unit/mL 0 sliding scale dose subcut TID 03/25/23 03/25/23 subcutaneous solution Previous Rx's Medication Instructions Recorded clonazepam 1 mg tablet (Klonopin) 1 mg PO BEDTIME 30 days #30 tabs 04/30/23 clotrimazole 1 % topical cream 1 appl topical BID 30 days #10 04/30/23 grams ferrous sulfate 324 mg (65 mg 324 mg PO DAILY 30 days #30 tabs 04/30/23 iron) tablet,delayed release glipizide 5 mg tablet 5 mg PO BIDWM 30 days #60 tabs 04/30/23 hydralazine 50 mg tablet 50 mg PO TID 30 days #90 tabs 04/30/23 insulin glargine 100 unit/mL 32 unit (0.32 mL) subcut DAILY 30 04/30/23 subcutaneous solution (Lantus days #9.6 mL U-100 Insulin) levetiracetam 750 mg tablet 750 mg PO BID 30 days #60 tabs 04/30/23 (Keppra) losartan 50 mg tablet 100 mg PO DAILY@1200 30 days #60 04/30/23 tabs metformin 750 mg tablet,extended 750 mg PO BEDTIME 30 days #30 tabs 04/30/23 release 24 hr nifedipine 30 mg tablet,extended 60 mg PO BEDTIME 30 days #60 tabs 04/30/23 release 24 hr olanzapine 10 mg tablet 10 mg PO BEDTIME 30 days #30 tabs 04/30/23 quetiapine 50 mg tablet 50 mg PO BID@0830,1430 30 days #60 04/30/23 tabs quetiapine 50 mg tablet 150 mg (3 x 50 mg) PO BEDTIME 30 04/30/23 days #90 tabs <Denise Jacobson NP - Last Filed: 04/30/23 15:40> Mental Status Exam Mental Status Exam Narrative: Pt is alert and oriented; behavior is cooperative and calm; dressed in casual attire; mood is described as good ; eye contact appropriate; Speech is normal rate, volume and prosody and not pressured; no psychomotor agitation/retardation present; thought process is organized; Thought content is on discharge; otherwise pertinent to relevant topics and without any delusional content, paranoid ideations or grandiosity; denies SI/HI. There is no evidence of perceptual disturbance. Patients insight and judgment are fair. <Denise Jacobson NP - Last Filed: 04/30/23 15:40> Pt is alert and oriented; behavior is cooperative and calm; dressed in casual attire; mood is described as good ; eye contact appropriate; Speech is normal rate, volume and prosody and not pressured; no psychomotor agitation/retardation present; thought process is organized, linear, and logical; Thought content is on discharge; otherwise pertinent to relevant topics and without any delusional content, paranoid ideations or grandiosity; denies SI/HI. There is no evidence of perceptual disturbance. Patients insight and judgment are fair. <Rakesh Thomas - Last Filed: 04/30/23 15:48> Data Data Completed and Pending Completed studies during hospitalization [Text1]: 04/16/23 04/23/23 04/23/23 08:21 17:52 20:29 WBC RBC Hgb Hct MCV MCH MCHC RDW Plt Count MPV Immature Gran % (Auto) Neut % (Auto) Lymph % (Auto) [place] % (Auto) Eos % (Auto) Baso % (Auto) Lymph # (Auto) [place] # (Auto) Eos # (Auto) Baso # (Auto) Abs Immat Gran (auto) Absolute Neuts (auto) Absolute Nucleated RBC Nucleated RBC % (auto) Sodium Potassium Chloride Carbon Dioxide Anion Gap BUN Creatinine Estim Creat Clear Calc Estimated GFR POC Glucose 169 H 130 H Fasting Glucose Calcium Total Bilirubin Direct Bilirubin AST ALT Alkaline Phosphatase Ammonia Total Protein Albumin Renin Activity 1.66 Aldosterone 16 Aldosterone/Renin Ratio 9.6 Valproic Acid COVID-19 (TREY) COVID-19 Clin Com 04/24/23 04/24/23 04/24/23 08:50 09:09 13:13 WBC 7.7 RBC 3.38 L Hgb 9.9 L Hct 29.0 L MCV 85.8 MCH 29.3 MCHC 34.1 RDW 14.9 Plt Count 382 MPV 8.4 L Immature Gran % (Auto) 0.5 H Neut % (Auto) 57.9 Lymph % (Auto) 27.8 [place] % (Auto) 10.8 Eos % (Auto) 2.6 Baso % (Auto) 0.4 Lymph # (Auto) 2.1 [place] # (Auto) 0.8 Eos # (Auto) 0.2 Baso # (Auto) 0.0 Abs Immat Gran (auto) 0.04 H Absolute Neuts (auto) 4.4 Absolute Nucleated RBC 0.000 Nucleated RBC % (auto) 0.0 Sodium 132 L Potassium 4.6 Chloride 98 Carbon Dioxide 23 Anion Gap 16 BUN 22 H Creatinine 0.58 Estim Creat Clear Calc 91.3 Estimated GFR > 60 POC Glucose 131 H 286 H Fasting Glucose 131 H Calcium 9.3 D Total Bilirubin 0.1 Direct Bilirubin AST 24 ALT 36 H Alkaline Phosphatase 117 Ammonia 26 Total Protein 6.1 L Albumin 3.6 Renin Activity Aldosterone Aldosterone/Renin Ratio Valproic Acid 31.4 L COVID-19 (TREY) COVID-19 Clin Com 04/24/23 04/24/23 04/24/23 17:50 20:12 21:45 WBC RBC Hgb Hct MCV MCH MCHC RDW Plt Count MPV Immature Gran % (Auto) Neut % (Auto) Lymph % (Auto) [place] % (Auto) Eos % (Auto) Baso % (Auto) Lymph # (Auto) [place] # (Auto) Eos # (Auto) Baso # (Auto) Abs Immat Gran (auto) Absolute Neuts (auto) Absolute Nucleated RBC Nucleated RBC % (auto) Sodium Potassium Chloride Carbon Dioxide Anion Gap BUN Creatinine Estim Creat Clear Calc Estimated GFR POC Glucose 168 H 102 Fasting Glucose Calcium Total Bilirubin Direct Bilirubin AST ALT Alkaline Phosphatase Ammonia Total Protein Albumin Renin Activity Aldosterone Aldosterone/Renin Ratio Valproic Acid COVID-19 (TREY) Negative COVID-19 Clin Com See Note 04/25/23 04/25/23 04/25/23 08:05 13:31 17:58 WBC RBC Hgb Hct MCV MCH MCHC RDW Plt Count MPV Immature Gran % (Auto) Neut % (Auto) Lymph % (Auto) [place] % (Auto) Eos % (Auto) Baso % (Auto) Lymph # (Auto) [place] # (Auto) Eos # (Auto) Baso # (Auto) Abs Immat Gran (auto) Absolute Neuts (auto) Absolute Nucleated RBC Nucleated RBC % (auto) Sodium Potassium Chloride Carbon Dioxide Anion Gap BUN Creatinine Estim Creat Clear Calc Estimated GFR POC Glucose 289 H 69 304 H Fasting Glucose Calcium Total Bilirubin Direct Bilirubin AST ALT Alkaline Phosphatase Ammonia Total Protein Albumin Renin Activity Aldosterone Aldosterone/Renin Ratio Valproic Acid COVID-19 (TREY) COVID-19 [employer] 04/25/23 04/26/23 04/26/23 20:08 07:14 08:46 WBC RBC Hgb Hct MCV MCH MCHC RDW Plt Count MPV Immature Gran % (Auto) Neut % (Auto) Lymph % (Auto) [place] % (Auto) Eos % (Auto) Baso % (Auto) Lymph # (Auto) [place] # (Auto) Eos # (Auto) Baso # (Auto) Abs Immat Gran (auto) Absolute Neuts (auto) Absolute Nucleated RBC Nucleated RBC % (auto) Sodium Potassium Chloride Carbon Dioxide Anion Gap BUN Creatinine Estim Creat Clear Calc Estimated GFR POC Glucose 195 H 190 H Fasting Glucose Calcium Total Bilirubin Direct Bilirubin AST ALT Alkaline Phosphatase Ammonia 62 H Total Protein Albumin Renin Activity Aldosterone Aldosterone/Renin Ratio Valproic Acid COVID-19 (TREY) COVID-19 [employer] 04/26/23 04/26/23 04/27/23 17:23 20:09 08:03 WBC RBC Hgb Hct MCV MCH MCHC RDW Plt Count MPV Immature Gran % (Auto) Neut % (Auto) Lymph % (Auto) [place] % (Auto) Eos % (Auto) Baso % (Auto) Lymph # (Auto) [place] # (Auto) Eos # (Auto) Baso # (Auto) Abs Immat Gran (auto) Absolute Neuts (auto) Absolute Nucleated RBC Nucleated RBC % (auto) Sodium Potassium Chloride Carbon Dioxide Anion Gap BUN Creatinine Estim Creat Clear Calc Estimated GFR POC Glucose 245 H 256 H 164 H Fasting Glucose Calcium Total Bilirubin Direct Bilirubin AST ALT Alkaline Phosphatase Ammonia Total Protein Albumin Renin Activity Aldosterone Aldosterone/Renin Ratio Valproic Acid COVID-19 (TREY) [employer] 04/27/23 04/27/23 04/27/23 12:16 12:36 17:55 WBC RBC Hgb Hct MCV MCH MCHC RDW Plt Count MPV Immature Gran % (Auto) Neut % (Auto) Lymph % (Auto) [place] % (Auto) Eos % (Auto) Baso % (Auto) Lymph # (Auto) [place] # (Auto) Eos # (Auto) Baso # (Auto) Abs Immat Gran (auto) Absolute Neuts (auto) Absolute Nucleated RBC Nucleated RBC % (auto) Sodium Potassium Chloride Carbon Dioxide Anion Gap BUN Creatinine Estim Creat Clear Calc Estimated GFR POC Glucose 82 172 H Fasting Glucose Calcium Total Bilirubin 0.1 Direct Bilirubin < 0.2 AST 15 ALT 25 Alkaline Phosphatase 114 Ammonia 37 Total Protein 6.4 L Albumin 3.8 Renin Activity Aldosterone Aldosterone/Renin Ratio Valproic Acid 35.4 L COVID-19 (TREY) [email or web address] 04/27/23 04/28/23 04/28/23 20:47 08:09 12:37 WBC RBC Hgb Hct MCV MCH MCHC RDW Plt Count MPV Immature Gran % (Auto) Neut % (Auto) Lymph % (Auto) [place] % (Auto) Eos % (Auto) Baso % (Auto) Lymph # (Auto) [place] # (Auto) Eos # (Auto) Baso # (Auto) Abs Immat Gran (auto) Absolute Neuts (auto) Absolute Nucleated RBC Nucleated RBC % (auto) Sodium Potassium Chloride Carbon Dioxide Anion Gap BUN Creatinine Estim Creat Clear Calc Estimated GFR POC Glucose 93 313 H 391 H* Fasting Glucose Calcium Total Bilirubin Direct Bilirubin AST ALT Alkaline Phosphatase Ammonia Total Protein Albumin Renin Activity Aldosterone Aldosterone/Renin Ratio Valproic Acid COVID-19 (TREY) [email or web address] 04/28/23 04/28/23 04/29/23 17:56 20:09 07:48 WBC RBC Hgb Hct MCV MCH MCHC RDW Plt Count MPV Immature Gran % (Auto) Neut % (Auto) Lymph % (Auto) [place] % (Auto) Eos % (Auto) Baso % (Auto) Lymph # (Auto) [place] # (Auto) Eos # (Auto) Baso # (Auto) Abs Immat Gran (auto) Absolute Neuts (auto) Absolute Nucleated RBC Nucleated RBC % (auto) Sodium Potassium Chloride Carbon Dioxide Anion Gap BUN Creatinine Estim Creat Clear Calc Estimated GFR POC Glucose 172 H 157 H 336 H Fasting Glucose Calcium Total Bilirubin Direct Bilirubin AST ALT Alkaline Phosphatase Ammonia Total Protein Albumin Renin Activity Aldosterone Aldosterone/Renin Ratio Valproic Acid COVID-19 (TREY) COVID-19 Clin Com 04/29/23 04/29/23 04/29/23 08:34 12:38 17:47 WBC RBC Hgb Hct MCV MCH MCHC RDW Plt Count MPV Immature Gran % (Auto) Neut % (Auto) Lymph % (Auto) [place] % (Auto) Eos % (Auto) Baso % (Auto) Lymph # (Auto) [place] # (Auto) Eos # (Auto) Baso # (Auto) Abs Immat Gran (auto) Absolute Neuts (auto) Absolute Nucleated RBC Nucleated RBC % (auto) Sodium Potassium Chloride Carbon Dioxide Anion Gap BUN Creatinine 0.70 Estim Creat Clear Calc 75.6 Estimated GFR > 60 POC Glucose 161 H 463 H* Fasting Glucose Calcium Total Bilirubin Direct Bilirubin AST ALT Alkaline Phosphatase Ammonia Total Protein Albumin Renin Activity Aldosterone Aldosterone/Renin Ratio Valproic Acid COVID-19 (TREY) COVID-19 [employer] 04/29/23 04/30/23 04/30/23 19:57 08:07 13:00 WBC RBC Hgb Hct MCV MCH MCHC RDW Plt Count MPV Immature Gran % (Auto) Neut % (Auto) Lymph % (Auto) [place] % (Auto) Eos % (Auto) Baso % (Auto) Lymph # (Auto) [place] # (Auto) Eos # (Auto) Baso # (Auto) Abs Immat Gran (auto) Absolute Neuts (auto) Absolute Nucleated RBC Nucleated RBC % (auto) Sodium Potassium Chloride Carbon Dioxide Anion Gap BUN Creatinine Estim Creat Clear Calc Estimated GFR POC Glucose 329 H 285 H 163 H Fasting Glucose Calcium Total Bilirubin Direct Bilirubin AST ALT Alkaline Phosphatase Ammonia Total Protein Albumin Renin Activity Aldosterone Aldosterone/Renin Ratio Valproic Acid COVID-19 (TREY) COVID-19 Clin Com <Denise Jacobson NP - Last Filed: 04/30/23 15:40> Imaging Diagnostic Imaging Impressions Renal Ultrasound 04/07/23 07:47 IMPRESSION: Increased peak systolic velocity in the mid left renal artery suggestive renal artery stenosis. Follow-up imaging recommended, preferably CTA if normal renal function. Renal Ultrasound 04/07/23 07:47 IMPRESSION: Increased peak systolic velocity in the mid left renal artery suggestive renal artery stenosis. Follow-up imaging recommended, preferably CTA if normal renal function. Abdomen CTA 04/08/23 16:05 IMPRESSION: Atherosclerotic disease. No significant renal artery stenosis. Calcified plaque at both renal artery origins. Tortuous left renal artery and question mild left mid renal artery stenosis. Several indeterminate left renal lesions as described above. Follow-up dedicated renal imaging with either CT or MRI with and without contrast recommended. 1.5 x 2 cm right adrenal lesion. Given hypertension, endocrinology follow-up and additional imaging may be helpful. This could be done at the same time as renal imaging if clinically indicated. Fleischner guidelines were followed. Orbit X-Ray 04/09/23 15:37 IMPRESSION: No radiopaque foreign body seen in the skull. No radiopaque foreign body seen in the chest. The lungs are clear. Brain MRI 04/10/23 13:15 IMPRESSION: No acute intracranial abnormality. 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 Background changes of mild chronic microangiopathy. Abdomen/Pelvis CT 04/14/23 18:31 IMPRESSION: 1. Benign right adrenal adenoma. 2. Benign Bosniak class I and class II left renal cysts which need no further follow-up. 3. Other incidental findings as described above including grade 1 anterolisthesis of L4 upon L5 and marked calcific and noncalcific atherosclerotic changes in the aorta and iliofemoral vessels with possible left common iliac stenosis. Fleischner guidelines were followed. Foot X-Ray 04/18/23 16:28 IMPRESSION: No acute fracture or dislocation. Interval amputation of the fourth toe. Erosive destructive changes of the fourth metatarsal head and periosteal reaction suggestive of osteomyelitis. Periosteal reaction of the shaft of the third metatarsal bone also questionable for osteomyelitis. Question osteomyelitis and pathologic fracture of the base of the proximal phalanx of the third toe. Erosive changes of the distal tuft of the great toe questionable for osteomyelitis as well. <Denise Jacobson NP - Last Filed: 04/30/23 15:40> DS: Summary Hospital Course Hospital Course: Patient is a 57 year old woman with hx of bipolar d/o who presented to ER via ambulance and section 12 from [employer] police secondary to erratic behavior, initially being unresponsive then throwing herself to the group, hitting, biting and choking herself. Per crisis report, pt has a hx of medication non-compliance. Pt has uncontrolled diabetes and had bilateral toes removed five weeks ago. Pt was reportedly unresponsive with [employer] van driver who brought her to her PCP appointment so he called the police. During hospital course, Patient was continued on her home mediations. Patient was seen by surgical for her toes. Surgical provider stated, Wounds are healing appropriately; sutures removed and clean dressings applied. Continue daily dressing changes with 3x3 or 2x2 gauze at base of 4th toes followed by 3 inch sarah wrap. She can follow up in my office in one month. She is also being followed by hospitalist for hyponatremia, hyperglycemia, and hypertension. Hospitalist reports they will change hydralazine to 50 mg p.o. t.i.d.. If BP remains elevated will add losartan 50 mg q.d. They will continue to follow for now. Increased trazodone to 200 mg. Placed surgical consult for right foot evaluation. Pt guarded and irritable today. Retracted 3 day with social work associate, then signed another one; She refused to meet with T/W. Patient stated, I'm fine. I don't like it here. I want to be left alone . Pt was seen for surgical consult; note stated; Right foot noted to have increased discharge. Silver alginate applied yesterday. Left foot healed. Continued daily dressing changed with silver alginate, DSD to right foot. Pt continues guarded and irritable. Patient stated, I hope I get into the rehab. I'm going to keep taking my meds. I just don't want to be here anymore . Pt has been attending groups but keeping to self. Patient stated, I'm doing alright. I'm looking forward to leaving here. I want to learn how to do my dressing on my foot . RN was notified to educate patient on this topic. Pt has been attending groups but keeping to self. 3 day is due tomorrow. Pt continues irritable. Reports she does not want to be here but understands it is not medically castro to be discharged d/t her being unable to care for wound. Concerned about belongings; her belongings from [facility] were brought to hospital; now feels less anxious. Retracted 3 day. Social work will continue to look for placement. OT to do MOCA. Observed attending groups. When OT attempted to conduct MOCA; pt was unable to tolerate questioning and starting rocking back and forth stating I don't know ; when she was instructed to take a deep breath, she was then able to answer some questions. T/W and met with patient in the afternoon to assess patient's insight into medical/psychiatric issues; pt was able to express that she would be interested in going to an assisted living housing. Pt stated, I hate people here, I just want to leave. I know I have no where to go . Hospitalist consult placed for continued HTN, elevated blood sugars and possible toe infection. Patient presents irritable and guarded during 1:1. Patient reports she is hoping to get into the program. I don't like the idea of them getting all my money but it's better than being homeless . Pt was seen by hospitalist; see note; medication were adjusted. pt was seen by surgery today for foot; Recommend continuing the current dressing changes with silver alginate and DSD. Health care proxy to be contacted tomorrow; possibly will invoke d/t patients mental status and medical condition. Patient unable to tolerate long conversations, she becomes frustrated, begins to make a whining noise and starts to hit herself in the head and pull her hair. Patient had a interview with admission director of [facility]; per social work associate, pt became easily frustrated, could not recall answers to basic questions and started hitting herself. [facility] denied her admission. workers' compensation mediator reported informing patient of denial; when T/W discussed it with her later in the afternoon, pt did not recall the conversation with social work associate and stated she did not know she was not accepted at [facility]. Pt stated, I want to leave. I don't care if I go to the streets and . Started Trileptal 150mg PO BID; risks/benefits discussed. Decreased Keppra to 500mg PO BID. Hospitalist ordered CT scan angio abdomen; pt aware; ordered Ativan 2mg PO once for procedure. T/W called Health care proxy, number not in service. T/W asked if the treatment team could speak to her cousin Randa who is her health care proxy; pt gave verbal permission. Section 7 and 8 to be filed d/t patient safety and inability to care for herself. T/W spoke to Randa; Randa stated she is aware of being [facility] health care proxy and does not have an issue if the health care proxy needed to be invoked. She expressed concern regarding Colle[facility] ability to care for herself and stated she has been declining cognitively over the past few years. Randa stated she would be willing to testify her concerns in court. MRI ordered d/t worsening behavior and cognition. Trileptal added for control of seizures and mood stability, trying decrease olanzapine, start Vraylar to help with significantly elevated blood sugar patient with Section 7 filed will re-evaluate lower keppra, trileptal 300 bid ;cont to dec olanzapine\, inc vraylar 3 mg daily. Pt overwhelmed anxious poor sleep was cooperative recent medical testing cking adrenal system and for tx resistant htn Patient is depressed irritable in mixed state periods of regression was able to complete 1st part of [place] then did not completed with OT. The patient has difficulty with sleep restlessness in spite of lorazepam and trazodone and olanzapine at bedtime. Stop trazodone, change Ativan to clonazepam, increase Zyprexa back to 20 mg will to all at bedtime monitor had a poor response to regarding diabetes. Questionable allergy to Vraylar could consider Geodon if diabetes worsens discharge planning patient did allow referral to [facility]. Continue oxcarbazepine Patient did verbally submit a 3 day after conversation. A week previously did halt a section 7 process as the patient did sign a conditional voluntary which at the time she said was of her own free will and was accepting treatment and seem to understand that time that she needed further treatment and we would help her with the discharge plan. We have considered invoking healthcare proxy at times patient has generally been cooperative with medical treatment she understands she has hypertension diabetes understood brain MRI was to look for any evidence of brain injury or process that might be interfering. Patient does have a significantly impaired frustration tolerance she is depressed and irritable had not been taking care of herself over the past few months prior to admission leading to medical difficulties. At time she seems to understand this at other times not. She has not been cooperative with more intensive cognitive testing she does have some word-finding problems at times.Continue diabetes and antihypertensive treatment.Evaluate for commitment in treatment plan Patient remains dysphoric in irritable poor sleep somewhat Behavioral old his disrupted is takes medication and treatment with structure but impulsive low frustration tolerance poor concentration regarding being a being able to manage this herself at this time. Three day notice continues evaluate need for commitment and treatment plan also evaluate consideration of invoking healthcare proxy which would be S some diff if he is commitment approved.Reviewed repeatedly with hospitalist service they did not feel patient required medical transfer and given hyponatremia 118 with presumed gradual change no major change in level of alertness that they felt could be treated on the psychiatric unit. Urea STARTED SALT TABLETS STARTED. Monitor cognition and alertness monitor response to to treatment hospitalist service following nephrology consult. Will start low-dose Depakote and clonidine see if this is helpful for mood and sleep. Has predilection for excess ADH Hyponatremia due to excess ADH Euvolemic; Urine studies reviewed Had been on Trilpetal- discontinued Mentation at baseline Started on NaCl tablets & PO Urea Serum sodium better No indication for hypertonic saline/ tolvaptan now C/W current supportive care for now Pt on 3 day labile, depressed, difficulty at this time for self care impaired judgement, yelling I want to go but not processing multiple issues presently going on hyponatremia depression mood instability started on depakote seroquel for mood stability depression urea sodium tabs for hyponatremia trileptal d/c nephrology consult reviewed on tx for ? ringworm second opinion ordered dr thomas follow sodium file for sec 7 Pt started thorazine 25 hs dep 250 tid file sec 7 tx plan. Patient agitated with significant insomnia irritability self harm injuries behavior intermittently. Difficult to engage in conversation hitting her head not listening. Patient was seen by infectious disease continue antifungal. Patient remains unstable agitated intermittently distraught has not responded to olanzapine; change to Seroquel recommend mouth checks, increase Depakote to 500 mg b.i.d. hyponatremia appears to have corrected less agitated. no sleep at all last night. change diet to regular in hopes of decreasing reactive dietary behaviors such as ice cream bingeing while on diabetic diet. elevated ammonia, T/C D/C of VPA. Patient presents irritable today. Observed yelling at times d/t not being able to get a hold of her cousin via phone; low distress tolerance. Pt began banging head and screaming at staff to leave her alone. Ammonia 37. DC depakote. Start Tegretol 100mg PO BID; monitor sodium and BP. Observed yelling at staff d/t not wanting to take tegretol; when asked why, pt reports it had given her an upset stomach before and she refused to take it again. Pt continues with low distress tolerance; begins kicking in bed, whining, raising voice. She presents calmer today, however reports she feels lousy . DC tegretol. Increased Keppra back to 750mg PO BID; which was her home dose. T/W and RN attempted to explain medications to patient, patient began yelling and stated, I don't care! I don't want to know! . Patient presents calmer today, reports feeling good and sleeping okay. Pt continues to have low distress tolerance. Patient is aware of court tomorrow. Patient asked to speak to T/W and stated, I miss my mother. She a couple years ago and I didn't get to say goodbye. I don't talk to my sister or father because of it . Patient denies SI/HI/VH/AH at this time. Pt was seen my surgical; Continued improvement in the right 4th toe amputation site. Blister essentially unchanged. Continue protective dressing over both wounds with silver alginate, 2 x 2 gauze and Sarah. Follow-up in office approximately 1 [address] canceled today. pt was interviewed and was able to understand that her toes had been amputated due to diabetes and that the reason had been that she had not adequately complied with treatment. she stated that she needed to take rosenda diabetes medication orally as well as the shots in order to manage the illness better. she was calm, cooperative, and reasonable throughout. she displayed no symptoms of mental illness. Patient's plan is to stay at [facility] in [place], [place] and have visiting RN visit her there. Patient was educated regarding dressing change by nursing staff. <Denise Jacobson NP - Last Filed: 04/30/23 15:40> Time spent discussing smoking cessation with patient: 3 to 10 minutes <Denise Jacobson NP - Last Filed: 04/30/23 15:40> Status at Discharge Cognitive/behavioral status at discharge: Patient was interviewed prior to discharge and found to be fully oriented and without any SI or HI. Patient has insight and demonstrates good judgment in terms of wanting to pursue treatment. Patient is not in imminent risk of harm to self or others and has a safety plan that includes presenting to the closest ER or calling 911 if feeling unsafe. Patient has been observed closely by nursing and unit staff throughout admission. <Denise Jacobson NP - Last Filed: 04/30/23 15:40> Functional status at discharge: independent ambulation <Denise Jacobson NP - Last Filed: 04/30/23 15:40> Overall status at discharge: patient is back to baseline <Denise Jacobson NP - Last Filed: 04/30/23 15:40> Time Spent with Patient Time attestation: Total time managing care of this patient today _30___ minutes. <Denise Jacobson NP - Last Filed: 04/30/23 15:40> Total time managing care of this patient today ____ minutes. <Rakesh Thomas - Last Filed: 04/30/23 15:48> Time spent: Less than 30 minutes <Denise Jacobson NP - Last Filed: 04/30/23 15:40> Greater than 30 minutes <Rakesh Thomas - Last Filed: 04/30/23 15:48> Discharge Plan Discharge Anticipated Discharge Date/Time: 04/30/23 10:48 <Denise Jacobson NP - Last Filed: 04/30/23 15:40> Patient Disposition: Xfer Other <Denise Jacobson NP - Last Filed: 04/30/23 15:40> Discharge Diagnosis: Cognitive Disorder NOS <Denise Jacobson NP - Last Filed: 04/30/23 15:40> Cognitive Disorder NOS <Rakesh Thomas - Last Filed: 04/30/23 15:48> Referrals: [facility] [Other] - 1 Day (Please call [facility] to inform them of your phone number and Room number.) [facility] [Provider Group] - 1 Week <GOKUL Gasca Last Filed: 04/30/23 15:40> Discharge Medications: New losartan 50 mg Tablet 100 mg PO DAILY@1200 30 Days Qty: 60 0RF Protocol: Hold for SBP< HOLD for SBP < : 90 nifedipine 30 mg Tablet Extended Release 24hr 60 mg PO BEDTIME 30 Days Qty: 60 0RF Protocol: Hold for SBP< HOLD for SBP < : 90 insulin glargine [Lantus U-100 Insulin] 100 unit/mL Solution 32 unit subcut DAILY 30 Days Qty: 9.6 0RF olanzapine 10 mg Tablet 10 mg PO BEDTIME 30 Days Qty: 30 0RF hydralazine 50 mg Tablet 50 mg PO TID 30 Days Qty: 90 0RF Protocol: Hold for SBP< HOLD for SBP < : 90 quetiapine 50 mg Tablet 50 mg PO BID@0830,1430 30 Days Qty: 60 0RF quetiapine 50 mg Tablet 150 mg PO BEDTIME 30 Days Qty: 90 0RF clotrimazole 1 % Cream 1 appl topical BID 30 Days Qty: 10 0RF Protocol: Apply to: Apply to: rash glipizide 5 mg Tablet 5 mg PO BIDWM 30 Days Qty: 60 0RF clonazepam [Klonopin] 1 mg tablet 1 mg PO BEDTIME 30 Days Qty: 30 0RF Rx Instructions: administer 30 minutes before bedtime Continued insulin lispro 100 unit/mL Solution 0 sliding scale dose SUBCUT TID levetiracetam [Keppra] 750 mg Tablet 750 mg PO BID 30 Days Qty: 60 0RF metformin 750 mg tablet extended release 24 hr 750 mg PO BEDTIME 30 Days Qty: 30 0RF ferrous sulfate 324 mg (65 mg iron) Tablet,Delayed Release (Dr/Ec) 324 mg PO DAILY 30 Days Qty: 30 0RF Discontinued insulin glargine [Lantus U-100 Insulin] 100 unit/mL solution 20 unit subcut DAILY trazodone 50 mg Tablet 50 mg PO BEDTIME olanzapine 10 mg Tablet 10 mg PO BID Qty: 60 0RF hydralazine 25 mg Tablet 25 mg PO QID Qty: 120 0RF Protocol: Hold for SBP< HOLD for SBP < : 90 <Denise Jacobson NP - Last Filed: 04/30/23 15:40> Discharge Orders: Discharge Order (Routine); Ordered 04/30/23 Ordered By: Rakesh Thomas <Denise Jacobson NP - Last Filed: 04/30/23 15:40> Diet: Diabetic diet <Denise Jacobson NP - Last Filed: 04/30/23 15:40> Diabetic diet <Rakesh Thomas - Last Filed: 04/30/23 15:48> Activity on Discharge: As tolerated <Denise Jacobson NP - Last Filed: 04/30/23 15:40> As tolerated <Rakesh Thomas - Last Filed: 04/30/23 15:48> Stand Alone Forms: Patient Portal Discharge page, Community Support <Denise Jacobson NP - Last Filed: 04/30/23 15:40> Care Plan Goals: remain safe and stable in the outpatient treatment setting <Denise Jacobson NP - Last Filed: 04/30/23 15:40> Health Concerns: Diabetes Mellitus Hypertension <Denise Jacobson NP - Last Filed: 04/30/23 15:40> Plan of Treatment: take medications as prescribed, attend appointments as scheduled <Denise Jacobson NP - Last Filed: 04/30/23 15:40> Assessment: not at imminent risk of harm to self or others due to mental illness treatable on inpatient mental health unit <Denise Jacobson NP - Last Filed: 04/30/23 15:40> Discharge Date/Time: 04/30/23 14:25 <Denise Jacobson NP - Last Filed: 04/30/23 15:40>
== END 2023-04-30 14:25 | disposition other institution (70) | DRG 753 ==
LOC: HO.ED 23:10 → HO.PADLT16 03-25 15:01
PROVIDERS: Physician Assistant; Social Worker; Admitting Provider Psychiatry & Neurology Psychiatry; Emergency Provider Emergency Medicine Emergency Medical Services; Responsible Provider Registered Nurse; Visit Provider Psychiatry & Neurology Psychiatry
DX: F31.4 Bipolar disorder, current episode depressed, severe, without psychotic features (principal); E11.621 Type 2 diabetes mellitus with foot ulcer; M86.9 Osteomyelitis, unspecified; G40.209 Localization-related (focal) (partial) symptomatic epilepsy and epileptic syndromes with complex partial seizures, not intractable, without status epilepticus; L97.519 Non-pressure chronic ulcer of other part of right foot with unspecified severity; E87.1 Hypo-osmolality and hyponatremia; E11.69 Type 2 diabetes mellitus with other specified complication; E11.65 Type 2 diabetes mellitus with hyperglycemia; F17.210 Nicotine dependence, cigarettes, uncomplicated; I10 Essential (primary) hypertension; G93.9 Disorder of brain, unspecified; F07.9 Unspecified personality and behavioral disorder due to known physiological condition; Z23 Encounter for immunization; B35.8 Other dermatophytoses; Z71.6 Tobacco abuse counseling; E27.9 Disorder of adrenal gland, unspecified; Z91.52 Personal history of nonsuicidal self-harm; Z75.1 Person awaiting admission to adequate facility elsewhere; Z91.119 Patient's noncompliance with dietary regimen due to unspecified reason; Z91.199 Patient's noncompliance with other medical treatment and regimen due to unspecified reason; Z20.822 Contact with and (suspected) exposure to COVID-19; Z79.4 Long term (current) use of insulin; Z79.84 Long term (current) use of oral hypoglycemic drugs; Z79.899 Other long term (current) drug therapy
CPT/HCPCS: 36415; 70551; 73620; 74175; 74178; 76775; 80048; 80053; 80061; 80076; 80164; 80307; 81003; 82088; 82140; 82533; 82565; 82570; 82607; 82627; 82746; 82947; 83036; 83835; 83930; 83935; 84295; 84300; 84439; 84443; 85025; 87635; 90686; 93005; 93306; 93975; 97161; 99285; J8540; Q9967; S9485

== ENCOUNTER 2023-03-25 14:54 | Outpatient (BNV) | payer MEDICAID, SELFPAY | END 2023-04-13 07:00 | PROVIDERS: Admitting Provider Psychiatry & Neurology Psychiatry; Emergency Provider Emergency Medicine Emergency Medical Services; Responsible Provider Registered Nurse; Visit Provider Internal Medicine Cardiovascular Disease | DX: I35.8 Other nonrheumatic aortic valve disorders (principal) | CPT/HCPCS: 93306 ==

== ENCOUNTER → 2023-03-25 14:54 | Outpatient (BNV) | payer OTHER, SELFPAY | PROVIDERS: Admitting Provider Psychiatry & Neurology Psychiatry; Emergency Provider Emergency Medicine Emergency Medical Services; Responsible Provider Registered Nurse; Visit Provider Psychiatry & Neurology Psychiatry | DX: F31.4 Bipolar disorder, current episode depressed, severe, without psychotic features (principal); B35.9 Dermatophytosis, unspecified; F09 Unspecified mental disorder due to known physiological condition; E11.9 Type 2 diabetes mellitus without complications; Z79.4 Long term (current) use of insulin; G93.9 Disorder of brain, unspecified; F07.9 Unspecified personality and behavioral disorder due to known physiological condition; G40.209 Localization-related (focal) (partial) symptomatic epilepsy and epileptic syndromes with complex partial seizures, not intractable, without status epilepticus | CPT/HCPCS: 99231; 99232; 99233 ==

== ENCOUNTER → 2023-03-25 14:54 | Outpatient (BNV) | payer OTHER, SELFPAY | PROVIDERS: Admitting Provider Psychiatry & Neurology Psychiatry; Emergency Provider Emergency Medicine Emergency Medical Services; Responsible Provider Registered Nurse; Visit Provider Psychiatry & Neurology Psychiatry | DX: F31.4 Bipolar disorder, current episode depressed, severe, without psychotic features (principal); M86.9 Osteomyelitis, unspecified; B35.9 Dermatophytosis, unspecified; E11.9 Type 2 diabetes mellitus without complications; Z79.4 Long term (current) use of insulin | CPT/HCPCS: 99231; 99232 ==

== ENCOUNTER → 2023-03-25 14:54 | Outpatient (BNV) | payer MEDICAID, SELFPAY | PROVIDERS: Admitting Provider Psychiatry & Neurology Psychiatry; Emergency Provider Emergency Medicine Emergency Medical Services; Responsible Provider Registered Nurse; Visit Provider Surgery | DX: M86.9 Osteomyelitis, unspecified (principal) | CPT/HCPCS: 99024 ==

== ENCOUNTER → 2023-03-25 14:54 | Outpatient (BNV) | payer MEDICAID, SELFPAY | PROVIDERS: Admitting Provider Psychiatry & Neurology Psychiatry; Emergency Provider Emergency Medicine Emergency Medical Services; Responsible Provider Registered Nurse; Visit Provider Internal Medicine | DX: B35.9 Dermatophytosis, unspecified (principal) | CPT/HCPCS: 99221 ==

== ENCOUNTER 2024-06-03 13:14 | Emergency (ER) | payer MEDICAID, SELFPAY ==
--- NOTE | ~2024-06-03 | XR_ITS ---
EXAMINATION: XR HAND, LEFT CLINICAL INFORMATION: Injury. Pain. COMPARISON: None available. TECHNIQUE: PA, lateral, and oblique views of the left hand. FINDINGS: No acute cortical disruption or malalignment. No metallic or radiopaque foreign body. No subcutaneous emphysema. Degenerative changes in the first and second carpometacarpal joint. Degenerative changes versus old trauma in the radial ulnar joint. XR/XR hand LT min 3V IMPRESSION: No acute fracture or dislocation. Electronically signed by: Dagoberto Yepez MD 06/03/2024 02:22 PM NAHED SCHAFFER
[2024-06-03 13:29] VITALS: BP 138/62; PULSE 92; O2SAT 91; BMI 22.3
[2024-06-03 13:36] VITALS: BP 117/54; PULSE 80; RESP 18; TEMP 36.9; O2SAT 98
[2024-06-03 13:46] LABS: MANUAL DIFF FLAG NO
[2024-06-03 13:46] LABS: Glucose, Whole Blood 305 mg/dL (60-115)
[2024-06-03 13:48] LABS: Basophils Percent Auto 0.3 % (0-2); Eosinophils Absolute Auto 0.1 X10*3/uL (0.0-0.4); Eosinophils Percent Auto 0.8 % (0-4); Hematocrit 31.4 % (37.0-47.0); Hemoglobin 10.8 g/dl (12.0-16.0); Imm Gran Abs Auto 0.05 X10*3/uL (0.00-0.03); Imm Gran Pct Auto 0.4 % (0.0-0.4); Lymphocytes Absolute Auto 2.4 X10*3/uL (1.2-4.9); Lymphocytes Percent Auto 21.6 % (20-40); Mean Corpuscular HGB Conc 34.4 g/dl (31.0-35.0); Mean Corpuscular Hemoglobin 30.4 pg (27.0-33.0); Mean Corpuscular Volume 88.5 fL (80.0-98.0); Mean Platelet Volume 9.1 fL (9.4-12.3); Monocytes Absolute Auto 0.7 X10*3/uL (0.1-1.2); Monocytes Percent Auto 6.4 % (2-11); Neutrophils Absolute Auto 7.9 x10*3/uL (2.0-8.3); Neutrophils Percent Auto 70.5 % (45-73); Platelet Count 353 X10*3/uL (160-400); Red Blood Count 3.55 X10*6/uL (4.20-5.50); Red Cell Distribution Width 13.1 % (11.0-16.0); White Blood Count 11.2 X10*3/uL (4.8-10.8)
[2024-06-03 14:08] LABS: Anion Gap 13 (12-20); Beta-Hydroxybutyrate 0.09 mmol/L (0.02-0.27); Blood Urea Nitrogen 20 mg/dL (9-16); Calcium 9.3 mg/dL (8.4-10.2); Carbon Dioxide 25 mmol/L (22-29); Chloride 101 mmol/L (96-108); Creatinine Clr Calc Pharmacy 69.7; Estimated Glomerular Filt Rate > 60; Glucose Random 316 mg/dL (60-115); Potassium 4.2 mmol/L (3.3-5.1); Sodium 135 mmol/L (135-145)
--- NOTE | 2024-06-03 14:24 | ED_ITS ---
HPI - General Adult General Chief complaint: Recheck/Abnormal Lab/Rx Stated complaint: HYPERGLYCEMIA PER EMS Time Seen by Provider: 06/03/24 13:16 History of Present Illness ED Provider: Dr. Erickson HPI narrative: 58 y/o F patient; PMH HTN, T2DM on insulin, bipolar disorder; presents with report of hyperglycemia. The patient was reportedly noted to have blood glucose 484 prior to lunch today. No associated symptoms such as: nausea/vomiting, diarrhea, abdominal pain, fever or chills, chest pain, SOB, cough/congestion, dysuria/frequency/hematuria. The patient also incidentally has left hand bruising from punching a wall last week. Related Data Home Medications ?Medication ?Instructions ?Recorded ?Confirmed insulin lispro 100 unit/mL 0 sliding scale dose subcut TID 03/25/23 03/25/23 subcutaneous solution Previous Rx's ?Medication ?Instructions ?Recorded clonazepam 1 mg tablet (Klonopin) 1 mg PO BEDTIME 30 days #30 tabs 04/30/23 clotrimazole 1 % topical cream 1 appl topical BID 30 days #10 04/30/23 grams ferrous sulfate 324 mg (65 mg 324 mg PO DAILY 30 days #30 tabs 04/30/23 iron) tablet,delayed release glipizide 5 mg tablet 5 mg PO BIDWM 30 days #60 tabs 04/30/23 hydralazine 50 mg tablet 50 mg PO TID 30 days #90 tabs 04/30/23 insulin glargine 100 unit/mL 32 unit (0.32 mL) subcut DAILY 30 04/30/23 subcutaneous solution (Lantus days #9.6 mL U-100 Insulin) levetiracetam 750 mg tablet 750 mg PO BID 30 days #60 tabs 04/30/23 (Keppra) losartan 50 mg tablet 100 mg PO DAILY@1200 30 days #60 04/30/23 tabs metformin 750 mg tablet,extended 750 mg PO BEDTIME 30 days #30 tabs 04/30/23 release 24 hr nifedipine 30 mg tablet,extended 60 mg PO BEDTIME 30 days #60 tabs 04/30/23 release 24 hr olanzapine 10 mg tablet 10 mg PO BEDTIME 30 days #30 tabs 04/30/23 quetiapine 50 mg tablet 50 mg PO BID@0830,1430 30 days #60 04/30/23 tabs quetiapine 50 mg tablet 150 mg (3 x 50 mg) PO BEDTIME 30 04/30/23 days #90 tabs Allergies Allergy/AdvReac Type Severity Reaction Status Date / Time haloperidol Allergy Severe Nausea and Verified 06/03/24 13:33 Vomiting lithium Allergy Severe Nausea and Verified 06/03/24 13:33 Vomiting latex Allergy Mild Itching Verified 06/03/24 13:33 Review of Systems 2 Review of Systems: Yes all other systems are reviewed and are negative [facility] Past Medical History Attestation statement: The following information was validated with the patient. Source: old records reviewed Medical History Bipolar 1 disorder, depressed, severe Bipolar disorder Osteomyelitis of toe of left foot Dermatophytosis Seizure disorder, complex partial Osteomyelitis Bipolar 1 disorder Seizure disorder Diabetes Occipital cerebral infarction Family History Family History Father Diabetes Mother Stroke Social History Social History Household Members: None Housing: Homeless Do you presently have visiting nurse or other home services: No Comment: pt refuses bed alarm Patient Tobacco Use Status: Current everyday Tobacco user Tobacco use type: Cigarette Cigarette Packs Per Day: 2 Cigarettes Per Day: 40.0 Second Hand Smoke Exposure: No Substance Use Type: Marijuana Advance Directives: Yes Advance Directives on File: Yes Advance Directives Date on File: 09/12/21 Do you have a plan to hurt others: No Plan service: No Sexual orientation: Decline to Answer Physical Exam ED Vital Signs: Vital Signs - 24 hr 06/03/24 13:36 Temperature 98.5 F Pulse Rate 80 Respiratory Rate 18 Blood Pressure 117/54 L Pulse Oximetry 98 Oxygen Delivery Method Room Air BMI result Body Mass Index 22.3 Patient is afebrile and hemodynamically stable Const General: cooperative and no acute distress HENMT Head: Yes normal to inspection and Yes atraumatic Eyes General: appearance normal, both eyes and all related structures Pupils: Equal, round and reactive pupils present EOM: EOMs intact bilaterally Neck Neck: Yes normal visual inspection, Yes full ROM and No tender Chest Chest palpation & inspection: normal inspection of the chest and normal palpation of entire chest wall Resp Effort & Inspection: normal respiratory effort, able to speak in complete sentences, no cough and no respiratory distress Auscultation: clear to auscultation bilaterally Cardio Rate: regular rate Rhythm: regular rhythm Peripheral pulses: Peripheral pulses 2+ throughout GI Inspection: Yes normal to inspection, No Abdominal wall edema and No distended Palpation (GI): Soft to palpation, not firm, nontender, no guarding and not rigid Auscultation: normal bowel sounds Back/Spine/Pelvis Back: No back tenderness Neuro Cranial nerves: Yes Equal, round and reactive pupils present Extrem Other: Left hand: ecchymosis over dorsal aspect 2nd - 3rd digits, NVI, FROM. Course Course Course Narrative: Patient is afebrile and hemodynamically stable. I will obtain basic labs to exclude HHS/DKA and I will get an XR of her left hand. XR is unremarkable. Labs reviewed. No evidence of DKA or HHS. Providing 6 units regular insulin for hyperglycemia. Plan: Discharge with PCP follow up Return precautions given Medical Decision Making Lab Data 06/03/24 13:43 06/03/24 13:43 Labs: Lab Results 06/03/24 06/03/24 Range/Units 13:39 13:43 WBC 11.2 H (4.8-10.8) X10*3/uL RBC 3.55 L (4.20-5.50) X10*6/uL Hgb 10.8 L (12.0-16.0) g/dl Hct 31.4 L (37.0-47.0) % MCV 88.5 (80.0-98.0) fL MCH 30.4 (27.0-33.0) pg MCHC 34.4 (31.0-35.0) g/dl RDW 13.1 (11.0-16.0) % Plt Count 353 (160-400) X10*3/uL MPV 9.1 L (9.4-12.3) fL Immature Gran % (Auto) 0.4 (0.0-0.4) % Neut % (Auto) 70.5 (45-73) % Lymph % (Auto) 21.6 (20-40) % Tucker % (Auto) 6.4 (2-11) % Eos % (Auto) 0.8 (0-4) % Baso % (Auto) 0.3 (0-2) % Lymph # (Auto) 2.4 (1.2-4.9) X10*3/uL Tucker # (Auto) 0.7 (0.1-1.2) X10*3/uL Eos # (Auto) 0.1 (0.0-0.4) X10*3/uL Baso # (Auto) 0.0 (0.0-0.2) X10*3/uL Abs Immat Gran (auto) 0.05 H (0.00-0.03) X10*3/uL Absolute Neuts (auto) 7.9 (2.0-8.3) x10*3/uL Absolute Nucleated RBC 0.000 (0.0-0.012) X10*3/uL Nucleated RBC % (auto) 0.0 (0.0-0.2) /100WBC Sodium 135 (135-145) mmol/L Potassium 4.2 (3.3-5.1) mmol/L Chloride 101 (96-108) mmol/L Carbon Dioxide 25 (22-29) mmol/L Anion Gap 13 (12-20) BUN 20 H (9-16) mg/dL Creatinine 0.75 (0.5-1.4) mg/dL Estim Creat Clear Calc 69.7 Estimated GFR > 60 POC Glucose 305 H (60-115) mg/dL Random Glucose 316 H (60-115) mg/dL Calcium 9.3 (8.4-10.2) mg/dL Beta-Hydroxybutyrate 0.09 (0.02-0.27) mmol/L Radiology Impression Discussion of test interpretation with radiology: I have reviewed the radiologist's reading. Radiologist Impression: EXAMINATION: XR HAND, LEFT CLINICAL INFORMATION: Injury. Pain. COMPARISON: None available. TECHNIQUE: PA, lateral, and oblique views of the left hand. FINDINGS: No acute cortical disruption or malalignment. No metallic or radiopaque foreign body. No subcutaneous emphysema. Degenerative changes in the first and second carpometacarpal joint. Degenerative changes versus old trauma in the radial ulnar joint. XR/XR hand LT min 3V IMPRESSION: No acute fracture or dislocation. Discharge Plan Discharge Clinical Impression: Hyperglycemia Patient Disposition: Home, Self-Care Instructions: Diabetic Hyperglycemia (ED) Additional Instructions: Patient seen for high blood glucose and injury to left hand. XR left hand negative. Labs with pure hyperglycemia without evidence of DKA or HHS. Provided insulin 6 units for short term coverage. Please followup with the patient's PCP within the next 1 - 2 days for re- evaluation and to discuss her recent emergency department visit. Prescriptions: No Action insulin lispro 100 unit/mL Solution 0 sliding scale dose SUBCUT TID losartan 50 mg Tablet 100 mg PO DAILY@1200 30 Days Qty: 60 0RF Protocol: Hold for SBP< HOLD for SBP < : 90 nifedipine 30 mg Tablet Extended Release 24hr 60 mg PO BEDTIME 30 Days Qty: 60 0RF Protocol: Hold for SBP< HOLD for SBP < : 90 insulin glargine [Lantus U-100 Insulin] 100 unit/mL Solution 32 unit subcut DAILY 30 Days Qty: 9.6 0RF olanzapine 10 mg Tablet 10 mg PO BEDTIME 30 Days Qty: 30 0RF hydralazine 50 mg Tablet 50 mg PO TID 30 Days Qty: 90 0RF Protocol: Hold for SBP< HOLD for SBP < : 90 quetiapine 50 mg Tablet 50 mg PO BID@0830,1430 30 Days Qty: 60 0RF quetiapine 50 mg Tablet 150 mg PO BEDTIME 30 Days Qty: 90 0RF clotrimazole 1 % Cream 1 appl topical BID 30 Days Qty: 10 0RF Protocol: Apply to: Apply to: rash glipizide 5 mg Tablet 5 mg PO BIDWM 30 Days Qty: 60 0RF levetiracetam [Keppra] 750 mg Tablet 750 mg PO BID 30 Days Qty: 60 0RF metformin 750 mg tablet extended release 24 hr 750 mg PO BEDTIME 30 Days Qty: 30 0RF ferrous sulfate 324 mg (65 mg iron) Tablet,Delayed Release (Dr/Ec) 324 mg PO DAILY 30 Days Qty: 30 0RF clonazepam [Klonopin] 1 mg tablet 1 mg PO BEDTIME 30 Days Qty: 30 0RF Rx Instructions: administer 30 minutes before bedtime Print Language: Tanzanian
--- NOTE | 2024-06-03 14:24 | PC.NURSE ---
pt yvan from [facility] d/t hyperglycemia. 484mg/dL at facility prior to lunch - ate lunch/received insulin. POC via EMS = 258mg/dL. EMS also reports facility states pt punched wall last week - swelling/bruising noted to left hand. upon ED arrival - a&ox3. unaware on why she presents to the ED today. vss and up to date. POC upon ED arrival = 305mg/dL. lab work obtained/sent to lab. xray ordered by provider. no sob/wob noted. respirations even/unlabored. plan of care ongoing. call lorenzo placed within reach.
[2024-06-03 14:25] VITALS: O2SAT 96
[2024-06-03] MEDS: Insulin Lispro 100 UNIT/ML 3 ML VIAL 6 UNIT SUBCUT (14:32)
--- NOTE | 2024-06-03 14:34 | PC.NURSE ---
insulin administered per provider order. will reassess.
--- NOTE | 2024-06-03 15:00 | PC.NURSE ---
repeat POC s/p insulin administration = 296mg/dL.
[2024-06-03 15:03] LABS: Glucose, Whole Blood 296 mg/dL (60-115)
[2024-06-03 15:53] VITALS: BP 109/55; PULSE 69; RESP 17; O2SAT 93
[2024-06-03 16:06] LABS: Glucose, Whole Blood 263 mg/dL (60-115)
[2024-06-03 16:26] VITALS: BP 109/55; PULSE 69; RESP 17; TEMP 36.9; O2SAT 93
== END 2024-06-03 16:36 | disposition home or self-care (01) ==
PROVIDERS: Emergency Provider Emergency Medicine; PCP Family Medicine
DX: E11.65 Type 2 diabetes mellitus with hyperglycemia (principal); M79.642 Pain in left hand; I10 Essential (primary) hypertension; F17.210 Nicotine dependence, cigarettes, uncomplicated; Z79.4 Long term (current) use of insulin; Z79.84 Long term (current) use of oral hypoglycemic drugs
CPT/HCPCS: 36415; 73130; 80048; 82010; 82947; 85025; 99283; 99284

== ENCOUNTER → 2024-06-03 13:38 | Outpatient (BNV) | payer MEDICAID, SELFPAY | PROVIDERS: Emergency Provider Emergency Medicine; PCP Family Medicine; Visit Provider Radiology Diagnostic Radiology | DX: S60.222A Contusion of left hand, initial encounter (principal) | CPT/HCPCS: 73130 ==

== ENCOUNTER 2024-10-10 13:37 | Outpatient (REF) | payer MEDICAID, SELFPAY ==
[2024-10-10 15:20] LABS: Alanine Aminotransferase 32 U/L (0-31); Albumin Level 3.9 g/dL (3.5-5.0); Alkaline Phosphatase 120 U/L (39-117); Anion Gap 13 (12-20); Aspartate Amino Transferase 34 U/L (5-31); Bilirubin Total 0.2 mg/dL (0.0-1.0); Blood Urea Nitrogen 21 mg/dL (9-16); Calcium 9.6 mg/dL (8.4-10.2); Carbon Dioxide 28 mmol/L (22-29); Chloride 95 mmol/L (96-108); Cholesterol 162 mg/dL (<200); Estimated Glomerular Filt Rate > 60; Glucose Random 414 mg/dL (60-115); HDL Cholesterol 70 mg/dL (>40); LDL Cholesterol Calculated 72 mg/dL (<100); Potassium 4.8 mmol/L (3.3-5.1); Sodium 131 mmol/L (135-145); Total Protein 7.1 g/dL (6.5-8.0); Triglycerides 102 mg/dL (<150)
== END 2024-10-10 13:38 | disposition home or self-care (01) ==
LOC: HO.CHCLDS 13:37
PROVIDERS: Visit Provider Internal Medicine
DX: E11.65 Type 2 diabetes mellitus with hyperglycemia (principal); Z79.4 Long term (current) use of insulin
CPT/HCPCS: 36415; 80053; 80061